=== PATIENT | male | born 1940 | race Caucasian/White ===

== ENCOUNTER → 2016-08-02 | Outpatient (CLI) | payer OTHER, BC ==
[~2016-08-02] MED LIST: ALPR-411 PO; AMLO10TA4 PO; ASPI81TA21 PO; GLIM4TAB2 PO; LINA1TAB PO; LISI40TA PO; METO25TA3 PO; NITR0.4S UT
[2016-08-02 09:36] LABS: ESTIMATED AVERAGE GLUCOSE 180 mg/dl; HA1C FLAG Normal (Normal)
[2016-08-02 09:52] LABS: BLOOD UREA NITROGEN 22 mg/dl (7-18); CALCIUM 8.9 mg/dl (8.5-10.1); CARBON DIOXIDE 27 mmol/L (21-32); CHLORIDE 109 mmol/L (98-107); GLUCOSE 155 mg/dl (70-99); GLUCOSE,FASTING 155 mg/dl (70-99); PHOSPHORUS 2.8 mg/dl (2.5-4.9); POTASSIUM 4.5 mmol/L (3.5-5.1); SODIUM 142 mmol/L (136-145)
== END | disposition home or self-care (01) ==
LOC: C.LAB 08:35
PROVIDERS: ATTEND Internal Medicine
DX: E11.9 Type 2 diabetes mellitus without complications (principal)

== ENCOUNTER → 2016-12-02 | Outpatient (CLI) | payer OTHER, BC ==
[2016-12-02 12:15] LABS: BASO % 1.1 %; BASO ABS # 0.08 K/uL (0-0.2); COMPLETE YES; EOS % 3.3 %; IG% 0.6 %; LYMPH % 25.3 %; LYMPH ABS # 1.76 K/uL (1.2-3.4); MEAN CELL VOLUME 90.2 fL (80-100); MEAN CORPUSCULAR HEMOGLOBIN 31.4 pg (25-34); MEAN CORPUSCULAR HGB CONC 34.8 g/dl (32-36); MEAN PLATELET VOLUME 10.2 fL (7.4-10.4); MONO % 7.2 %; NEUT % 62.5 %; PLATELET COUNT 274 K/uL (130-400); RED BLOOD COUNT 4.88 M/uL (4.7-6.1); WHITE BLOOD COUNT 6.96 K/uL (4.8-10.8)
[2016-12-02 12:59] LABS: ALT/SGPT 22 U/L (12-78); AST/SGOT 18 U/L (15-37); BLOOD UREA NITROGEN 36 mg/dl (7-18); BUN/CREATININE RATIO 18.2 (10-20); CALCIUM 9.4 mg/dl (8.5-10.1); CARBON DIOXIDE 25 mmol/L (21-32); CHLORIDE 107 mmol/L (98-107); CHOLESTEROL 169 mg/dl (0-200); GLUCOSE 164 mg/dl (70-99); POTASSIUM 4.6 mmol/L (3.5-5.1); SODIUM 139 mmol/L (136-145)
[2016-12-02 13:11] LABS: ALB/GLOB RATIO 0.9 (0.9-2); ALKALINE PHOSPHATASE 107 U/L (45-117); CHOLESTEROL/HDL RATIO 5.3; HDL CHOLESTEROL 32 mg/dl; LDL CHOLESTEROL CALCULATED 105 mg/dl; TRIGLYCERIDES 158 mg/dl (0-150); VERY LOW DENSITY LIPOPROT CALC 32 mg/dl
[2016-12-02 13:17] LABS: ESTIMATED AVERAGE GLUCOSE 180 mg/dl; HA1C FLAG Normal (Normal)
== END | disposition home or self-care (01) ==
LOC: C.LABBFT 08:12
PROVIDERS: ATTEND Internal Medicine
DX: N18.3 Chronic kidney disease, stage 3 (moderate) (principal); E78.00 Pure hypercholesterolemia, unspecified; E11.9 Type 2 diabetes mellitus without complications

== ENCOUNTER → 2016-12-09 | Outpatient (CLI) | payer OTHER, BC ==
[2016-12-09 13:07] LABS: BLOOD UREA NITROGEN 30 mg/dl (7-18); CALCIUM 8.9 mg/dl (8.5-10.1); CARBON DIOXIDE 30 mmol/L (21-32); CHLORIDE 104 mmol/L (98-107); GLUCOSE 208 mg/dl (70-99); POTASSIUM 4.5 mmol/L (3.5-5.1); SODIUM 137 mmol/L (136-145)
[2016-12-09 13:20] LABS: BUN/CREATININE RATIO 15.9 (10-20)
== END | disposition home or self-care (01) ==
LOC: C.LABBFT 08:17
PROVIDERS: ATTEND Internal Medicine
DX: R94.6 Abnormal results of thyroid function studies (principal)

== ENCOUNTER → 2017-01-26 | Outpatient (CLI) | payer OTHER, BC ==
[2017-01-26 12:49] LABS: THYROID STIMULATING HORMONE 2.57 uIu/ml (0.300-4.500)
== END | disposition home or self-care (01) ==
LOC: C.LABBFT 07:52
PROVIDERS: ATTEND Internal Medicine
DX: E03.9 Hypothyroidism, unspecified (principal)

== ENCOUNTER → 2017-04-13 | Outpatient (CLI) | payer OTHER, BC ==
[2017-04-13 12:42] LABS: ALBUMIN 3.7 gm/dl (3.4-5.0); BLOOD UREA NITROGEN 31 mg/dl (7-18); CALCIUM 9.1 mg/dl (8.5-10.1); CARBON DIOXIDE 26 mmol/L (21-32); CREATININE 1.65 mg/dl (0.60-1.40); GLUCOSE 135 mg/dl (70-99); POTASSIUM 4.6 mmol/L (3.5-5.1); SODIUM 138 mmol/L (136-145)
[2017-04-13 12:53] LABS: PHOSPHORUS 3.4 mg/dl (2.5-4.9)
[2017-04-13 12:53] LABS: CREATININE RANDOM URINE 68.8 mg/dl
== END | disposition home or self-care (01) ==
LOC: C.LABBFT 07:53
PROVIDERS: ATTEND Internal Medicine
DX: E11.9 Type 2 diabetes mellitus without complications (principal); E03.9 Hypothyroidism, unspecified; N18.3 Chronic kidney disease, stage 3 (moderate)

== ENCOUNTER 2018-05-23 08:21 | Observation (INO) ==
[2018-05-23] MEDS ORDERED: ASPIRIN CHEW 324 MG PO STA (09:05)
[2018-05-23] MEDS ORDERED: fentaNYL citrate 100 MCG/2 ML VIAL IV STA ×2 (09:05→10:33)
[2018-05-23] MEDS: NITROGLYCERIN SL 0.4 MG/TAB TAB SL PRN ×3 (09:12→09:24)
[2018-05-23 09:19] LABS: Basophils # (auto) 0.09 K/uL (0-0.2); Basophils % (auto) 0.7 %; Eosinophils # (auto) 0.18 K/uL (0-0.5); Eosinophils % (auto) 1.4 %; Hematocrit (blood only) 42.7 % (42-52); Hemoglobin 14.6 g/dL (14.0-18.0); Immature Granulocytes # (auto) 0.06 K/uL (0.00-0.02); Immature Granulocytes % (auto) 0.5 %; Lymphocytes # (auto) 2.37 K/uL (1.2-3.4); Lymphocytes % (auto) 18.6 %; Mean Corpuscular Hgb Conc 34.2 g/dL (32-36); Mean Corpuscular Volume 92.8 fL (80-100); Mean Platelet Volume 9.6 fL (7.4-10.4); Monocytes # (auto) 1.26 K/uL (0.11-0.59); Monocytes % (auto) 9.9 %; Neutrophils # (auto) 8.81 K/uL (1.4-6.5); Neutrophils % (auto) 68.9 %; Platelet Count 308 K/uL (130-400); RDW Coefficient of Variation 14.1 % (11.5-14.5); RDW Standard Deviation 47.9 fL (36.4-46.3); White Blood Count 12.77 K/uL (4.8-10.8)
--- NOTE | 2018-05-23 09:25 | XRay Report ---
XR chest 1V portable CLINICAL HISTORY: Atypical chest pain COMPARISON STUDY: 06/20/2011 FINDINGS: The heart is enlarged. There is elevation of the interstitium consistent with mild congesti ve failure. There is no lobar consolidation. There are no large pleural effusions.[ IMPRESSION: Cardiomegaly and radiographic evidence of mild congestive failure/fluid overload. No evid ence of lobar consolidation Electronically signed by: Xavier Carroll M.D. 05/23/2018 9:23 AM
[2018-05-23 09:27] LABS: Albumin Level 3.6 gm/dl (3.4-5.0); BUN Creatinine Ratio 12.5 (10-20); Calcium 9.1 mg/dl (8.5-10.1); Est GFR (African American) 39.8; Est GFR (Non-African American) 34.3; Potassium 4.7 mmol/L (3.5-5.1)
[2018-05-23 09:32] LABS: Prothrombin Time 10.3 Seconds (9.0-12.0)
[2018-05-23 09:49] LABS: Albumin Globulin Ratio 0.9 (0.9-2); Bilirubin,Total 0.8 mg/dl (0.2-1); Globulin 4.2 gm/dl (2.5-4.0); Total Protein 7.8 gm/dl (6.4-8.2); Troponin I 0.319 ng/ml (0-0.045)
[2018-05-23] MEDS ORDERED: HEPARIN SOD 5,000 UNIT/0.5 ML VIAL ONE (10:07)
[2018-05-23] MEDS ORDERED: HEPARIN 25000 UNIT/500 ML D5W IV ONE (10:07)
--- NOTE | 2018-05-23 10:09 | Emergency Department Note ---
Entered by Antonia Kilpatrick acting as a scribe for History of Present Illness General Chief complaint: Chest Pain Stated complaint: CHEST PAIN,BACK PAIN Time Seen by Provider: 05/23/18 08:58 Source: patient History of Present Illness Onset (ago): hour(s) (this morning) Location: chest (left-sided) Radiation: back Severity: similar to prior episodes Pain Consistency: + other (persistent ) Maximum Pain Intensity: 6 Associated symptoms: + other (negative abdominal pain; negative arm pain) The patient is a 78 year old male who presents to the Emergency Room with complaints of persistent left-sided chest pain that began this morning. The patient states that this pain began in the left side of his back and moved to the front of his chest. The patient states that he has had intermittent episodes of similar pain over the past several weeks. The patient denies abdominal pain and arm pain. He states that he has some right shoulder pain, but states that this is not new. The patient states that he has 2 or 3 cardiac stents. He states that he takes baby Aspirin regularly. The patient states that he took all of his medications this morning. Home Medications Home Medications Medication Instructions Recorded Confirmed Type alprazolam 0.5 mg PO DAILY 05/23/18 05/23/18 History amlodipine 10 mg PO HS 05/23/18 05/23/18 History aspirin 81 mg PO DAILY 05/23/18 05/23/18 History ezetimibe 10 mg PO DAILY 05/23/18 05/23/18 History glimepiride 4 mg PO BID 05/23/18 05/23/18 History hydralazine 10 mg PO BID 05/23/18 05/23/18 History insulin glargine [Lantus Solostar 26 unit SUBCUT HS 05/23/18 05/23/18 History U-100 Insulin] levothyroxine [Synthroid] 50 mcg PO DAILY 05/23/18 05/23/18 History linagliptin [Tradjenta] 5 mg PO DAILY 05/23/18 05/23/18 History lisinopril 40 mg PO DAILY 05/23/18 05/23/18 History nitroglycerin [Nitrostat] 0.4 mg SUBLINGUAL UD PRN 05/23/18 05/23/18 History omega-3 fatty acids-fish oil [Fish 1,200 mg PO DAILY 05/23/18 05/23/18 History Oil] Allergies Allergy/AdvReac Type Severity Reaction Status Date / Time No Known Allergies Allergy Mild Unverified 07/17/15 08:40 Past Med/Surg History Medical History Hypertension (Chronic) Social History Current Living Situation: Spouse Other Information That Helps Us Care for You: No Feels Safe at Home: Yes Safety Concerns: Feels Safe At This Time Smoking Status: Former smoker Do You Dip or Chew Tobacco: No Second Hand Exposure: No Tobacco Cessation Education Requested by Patient: No Hx Alcohol Use: No Hx Substance Use: No Beliefs That Will Affect Care: None Preferred Language: Colombian Communication Ability: Effective Golf Cart Maker Required: No Review of Systems See HPI for pertinent positives & negatives. and A total of 10 systems reviewed and were otherwise negative Physical Exam Vital Signs Vital Signs - 24 hr 05/23/18 08:33 05/23/18 08:37 05/23/18 09:12 Temperature Temperature Source Oral Sepsis Recent Fever Within 48 Hours No Sepsis Action Taken by Nursing No Action Required Pulse Rate 110 H Pulse Rate [Apical] 97 H Pulse Rhythm [Apical] Pulse Strength [Apical] Respiratory Rate 24 28 H Respiratory Effort / Characteristics SOB on Exertion Respiratory Depth Respiratory Pattern Blood Pressure 186/101 H Blood Pressure [Left Arm] 131/84 Blood Pressure [Right Arm] Blood Pressure Mean 129 Blood Pressure Mean [Left Arm] 99 Blood Pressure Mean [Right Arm] Blood Pressure Position [Right Arm] Pulse Oximetry 85 L 100 96 Oxygen Delivery Method Room Air Room Air Room Air 05/23/18 09:15 05/23/18 09:18 05/23/18 09:25 Temperature Temperature Source Sepsis Recent Fever Within 48 Hours Sepsis Action Taken by Nursing Pulse Rate Pulse Rate [Apical] 81 82 Pulse Rhythm [Apical] Pulse Strength [Apical] Respiratory Rate 26 H 28 H Respiratory Effort / Characteristics Respiratory Depth Respiratory Pattern Blood Pressure Blood Pressure [Left Arm] 133/78 Blood Pressure [Right Arm] 133/78 124/79 Blood Pressure Mean Blood Pressure Mean [Left Arm] 96 Blood Pressure Mean [Right Arm] 96 94 Blood Pressure Position [Right Arm] Pulse Oximetry 96 96 96 Oxygen Delivery Method Room Air Room Air Room Air 05/23/18 09:32 05/23/18 09:43 05/23/18 10:01 Temperature Temperature Source Sepsis Recent Fever Within 48 Hours Sepsis Action Taken by Nursing Pulse Rate 66 74 Pulse Rate [Apical] 86 Pulse Rhythm [Apical] Pulse Strength [Apical] Respiratory Rate 30 H 19 26 H Respiratory Effort / Characteristics Respiratory Depth Respiratory Pattern Blood Pressure 104/68 142/88 H Blood Pressure [Left Arm] Blood Pressure [Right Arm] 114/65 Blood Pressure Mean 80 106 Blood Pressure Mean [Left Arm] Blood Pressure Mean [Right Arm] 81 Blood Pressure Position [Right Arm] Pulse Oximetry 96 97 96 Oxygen Delivery Method Room Air 05/23/18 10:31 05/23/18 10:39 05/23/18 10:48 Temperature Temperature Source Sepsis Recent Fever Within 48 Hours Sepsis Action Taken by Nursing Pulse Rate 99 H 85 Pulse Rate [Apical] Pulse Rhythm [Apical] Pulse Strength [Apical] Respiratory Rate 28 H 11 L Respiratory Effort / Characteristics Respiratory Depth Respiratory Pattern Blood Pressure 151/90 H 175/123 H 133/88 Blood Pressure [Left Arm] Blood Pressure [Right Arm] Blood Pressure Mean 110 140 103 Blood Pressure Mean [Left Arm] Blood Pressure Mean [Right Arm] Blood Pressure Position [Right Arm] Pulse Oximetry 99 100 Oxygen Delivery Method 05/23/18 11:04 05/23/18 11:05 05/23/18 11:25 Temperature Temperature Source Sepsis Recent Fever Within 48 Hours Sepsis Action Taken by Nursing Pulse Rate 91 H 86 79 Pulse Rate [Apical] Pulse Rhythm [Apical] Pulse Strength [Apical] Respiratory Rate 20 28 H 24 Respiratory Effort / Characteristics Respiratory Depth Respiratory Pattern Blood Pressure 138/99 138/88 Blood Pressure [Left Arm] Blood Pressure [Right Arm] Blood Pressure Mean 112 104 Blood Pressure Mean [Left Arm] Blood Pressure Mean [Right Arm] Blood Pressure Position [Right Arm] Pulse Oximetry 95 96 97 Oxygen Delivery Method 05/23/18 11:30 05/23/18 11:31 05/23/18 12:25 Temperature 36.1 C L Temperature Source Oral Sepsis Recent Fever Within 48 Hours Sepsis Action Taken by Nursing Pulse Rate 76 55 L Pulse Rate [Apical] 100 H Pulse Rhythm [Apical] Regular Pulse Strength [Apical] Normal Respiratory Rate 29 H 21 20 Respiratory Effort / Characteristics Non-Labored Spontaneous Respiratory Depth Normal Respiratory Pattern Regular Blood Pressure 127/78 Blood Pressure [Left Arm] Blood Pressure [Right Arm] 144/92 H Blood Pressure Mean 94 Blood Pressure Mean [Left Arm] Blood Pressure Mean [Right Arm] 109 Blood Pressure Position [Right Arm] Lying Pulse Oximetry 95 92 Oxygen Delivery Method Room Air GENERAL: Awake, alert, well-appearing, uncomfortable. HENT: Normocephalic, atraumatic. EYES: Normal conjunctiva. Sclera non-icteric. NECK: Supple. No nuchal rigidity. RESPIRATORY: Clear to auscultation. No wheezes. Tachypneic. CARDIAC: Tachycardic rate. Normal rhythm. Extremities warm and well perfused. GI: Soft, non-distended. No tenderness to palpation. No rebound or guarding. RECTAL: Deferred. MUSCULOSKELETAL: Atraumatic. Chest examination reveals no tenderness. There is no CVA tenderness to palpation. LOWER EXTREMITIES: Calves are equal size bilaterally and non-tender. No edema NEURO: Normal sensorium. No sensory or motor deficits noted. No facial droop. SKIN: Warm and dry. No rash or jaundice noted. Course 0900: Past medical records reviewed. The patient was evaluated in room B12B, and a complete history and physical examination were performed. 1014: [facility]. 1117: [facility] who [facility] the patient and suggested that Dr. Pugh be consulted. 1121: I discussed the case with Dr. Pugh-V[facility] Surgery who states that there is nothing to do about the patient's CT findings. Consultations Consultation #1: [facility] who will [facility] the [facility]. Time: 10:14 Consultation #2: [facility] who evaluated the patient and suggested that Dr. Pugh be consulted. Time: 11:17 Consultation #3: I discussed the case with Dr. Pugh-V[facility] Surgery who states that there is nothing to do about the patient's CT findings. Time: 11:21 Administered Medications Ezetimibe (Zetia) 10 mg PO QAM [facility] Stop: 06/22/18 12:14 Last Admin: 05/23/18 14:15 Dose: 10 mg Heparin Sodium/Dextrose (Heparin Sodium/Dextrose) 25,000 units in 500 mls @ 30 mls/hr IV .[id number] [facility]; Protocol Stop: 06/22/18 12:40 Last Admin: 05/23/18 13:02 Dose: 1,500 units/hr, 30 mls/hr Insulin Aspart (Novolog Flexpen) 0 units SC ACHS [facility] Stop: 05/23/18 23:59 Last Admin: 05/23/18 14:17 Dose: 2 units Ioversol (Optiray 320 125ml) 119 ml IV ONCE PRN PRN Reason: Interaction Checking Stop: 05/27/18 11:00 Last Admin: 05/23/18 11:02 Dose: 119 ml Metoprolol Succinate (Toprol Xl) 25 mg PO QAM [facility] Stop: 06/22/18 12:14 Last Admin: 05/23/18 14:15 Dose: 25 mg Discontinued Medications Aspirin (Aspirin) 324 mg PO NOW STA Stop: 05/23/18 09:06 Last Admin: 05/23/18 09:13 Dose: 324 mg Fentanyl Citrate (Fentanyl Citrate) 25 mcg IV NOW STA Stop: 05/23/18 09:06 Last Admin: 05/23/18 09:31 Dose: 25 mcg Fentanyl Citrate (Fentanyl Citrate) 25 mcg IV NOW STA Stop: 05/23/18 10:34 Last Admin: 05/23/18 10:39 Dose: 25 mcg Heparin Sodium (Porcine) (Heparin Sodium (Porcine)) Confirm Administered Dose 10 ,000 units .ROUTE .STK-MED ONE Stop: 05/23/18 10:08 Last Admin: 05/23/18 10:19 Dose: 5,000 units Heparin Sodium/Dextrose () 1 ea IV NOW STA; Protocol Stop: 05/23/18 09:57 Last Admin: 05/23/18 10:22 Dose: Not Given Heparin Sodium/Dextrose (Heparin Sodium/Dextrose) Confirm Administered Dose 25, 000 units IV .STK-MED ONE Stop: 05/23/18 10:08 Last Admin: 05/23/18 10:18 Dose: 30 ml Sodium Chloride (Nss 1000ml) 1,000 mls @ 80 mls/hr IV .[id number] [facility] Stop: 06/22/18 12:23 Last Admin: 05/23/18 14:25 Dose: Not Given Metoprolol Tartrate (Lopressor) 2.5 mg IV NOW STA Stop: 05/23/18 10:42 Last Admin: 05/23/18 14:24 Dose: Not Given Nitroglycerin (Nitrostat) 0.4 mg SL UD PRN PRN Reason: Chest Pain Stop: 06/22/18 09:04 Last Admin: 05/23/18 09:24 Dose: 0.4 mg Admin: 05/23/18 09:18 Dose: 0.4 mg Admin: 05/23/18 09:12 Dose: 0.4 mg Nitroglycerin (Nitrostat) 0.4 mg SL NOW STA Stop: 05/23/18 10:34 Last Admin: 05/23/18 10:38 Dose: 0.4 mg Nitroglycerin (Nitro-Bid 2%) 1 inch EXT NOW ONE Stop: 05/23/18 10:48 Last Admin: 05/23/18 11:12 Dose: 1 inch Medical Decision Making Differential Diagnosis Differential diagnosis: Etiologies such as shingles, musculoskeletal pain, pericarditis, myocarditis, cardiac ischemia, pericardial tamponade, pneumonia, pneumothorax, pleural effusion, hemothorax, pleurisy, aortic pathology, pulmonary embolism, intra- abdominal process, as well as others were considered. Medical Records Attestation: I reviewed the patient's medical records. Home Medications Current Medication List: was personally reviewed by me Laboratory Data Attestation: I reviewed the patient's lab results. Result diagrams: 05/23/18 09:00 05/23/18 09:00 Lab Results 05/23/18 05/23/18 05/23/18 Range/Units 09:00 09:00 09:00 WBC 12.77 H (4.8-10.8) K/uL RBC 4.60 L (4.7-6.1) M/uL Hgb 14.6 (14.0-18.0) g/dL Hct 42.7 (42-52) % MCV 92.8 (80-100) fL MCH 31.7 (25-34) pg MCHC 34.2 (32-36) g/dL RDW Std Deviation 47.9 H (36.4-46.3) fL RDW Coeff of Pj 14.1 (11.5-14.5) % Plt Count 308 (130-400) K/uL MPV 9.6 (7.4-10.4) fL Immature Gran % (Auto) 0.5 % Neut % (Auto) 68.9 % Lymph % (Auto) 18.6 % Dillon % (Auto) 9.9 % Eos % (Auto) 1.4 % Baso % (Auto) 0.7 % Immature Gran # (Auto) 0.06 H (0.00-0.02) K/uL Neut # (Auto) 8.81 H (1.4-6.5) K/uL Lymph # (Auto) 2.37 (1.2-3.4) K/uL Dillon # (Auto) 1.26 H (0.11-0.59) K/uL Eos # (Auto) 0.18 (0-0.5) K/uL Baso # (Auto) 0.09 (0-0.2) K/uL PT 10.3 (9.0-12.0) Seconds INR 1.0 (0.9-1.1) Sodium 137 (136-145) mmol/L Potassium 4.7 (3.5-5.1) mmol/L Chloride 104 (98-107) mmol/L Carbon Dioxide 24 (21-32) mmol/L Anion Gap 9.0 (3-11) BUN 23 H (7-18) mg/dl Creatinine 1.83 H (0.6-1.4) mg/dl Est Cr Clr Drug Dosing 39.0 ml/min Est GFR ( Amer) 39.8 Est GFR (Non-Af Amer) 34.3 BUN/Creatinine Ratio 12.5 (10-20) Glucose 218 H (70-99) mg/dl POC Glucose (70-99) Calcium 9.1 (8.5-10.1) mg/dl Total Bilirubin 0.8 (0.2-1) mg/dl AST 21 (15-37) U/L ALT 22 (12-78) U/L Alkaline Phosphatase 119 H (45-117) U/L POC Troponin I (0-0.045) ng/ml Troponin I 0.319 H* (0-0.045) ng/ml Total Protein 7.8 (6.4-8.2) gm/dl Albumin 3.6 (3.4-5.0) gm/dl Globulin 4.2 H (2.5-4.0) gm/dl Albumin/Globulin Ratio 0.9 (0.9-2) Lipase 416 H (73-393) U/L 05/23/18 05/23/18 05/23/18 Range/Units 09:12 12:49 14:03 WBC (4.8-10.8) K/uL RBC (4.7-6.1) M/uL Hgb (14.0-18.0) g/dL Hct (42-52) % MCV (80-100) fL MCH (25-34) pg MCHC (32-36) g/dL RDW Std Deviation (36.4-46.3) fL RDW Coeff of Pj (11.5-14.5) % Plt Count (130-400) K/uL MPV (7.4-10.4) fL Immature Gran % (Auto) % Neut % (Auto) % Lymph % (Auto) % Dillon % (Auto) % Eos % (Auto) % Baso % (Auto) % Immature Gran # (Auto) (0.00-0.02) K/uL Neut # (Auto) (1.4-6.5) K/uL Lymph # (Auto) (1.2-3.4) K/uL Dillon # (Auto) (0.11-0.59) K/uL Eos # (Auto) (0-0.5) K/uL Baso # (Auto) (0-0.2) K/uL PT (9.0-12.0) Seconds INR (0.9-1.1) Sodium (136-145) mmol/L Potassium (3.5-5.1) mmol/L Chloride (98-107) mmol/L Carbon Dioxide (21-32) mmol/L Anion Gap (3-11) BUN (7-18) mg/dl Creatinine (0.6-1.4) mg/dl Est Cr Clr Drug Dosing ml/min Est GFR ( Amer) Est GFR (Non-Af Amer) BUN/Creatinine Ratio (10-20) Glucose (70-99) mg/dl POC Glucose 213 H (70-99) Calcium (8.5-10.1) mg/dl Total Bilirubin (0.2-1) mg/dl AST (15-37) U/L ALT (12-78) U/L Alkaline Phosphatase (45-117) U/L POC Troponin I 0.29 H (0-0.045) ng/ml Troponin I 1.700 H* (0-0.045) ng/ml Total Protein (6.4-8.2) gm/dl Albumin (3.4-5.0) gm/dl Globulin (2.5-4.0) gm/dl Albumin/Globulin Ratio (0.9-2) Lipase (73-393) U/L Imaging Data Radiologist's Impression: Radiology results as stated below per my review and the radiologist's interpretation: XR chest 1V portable CLINICAL HISTORY: Atypical chest pain COMPARISON STUDY: 06/20/2011 FINDINGS: The heart is enlarged. There is elevation of the interstitium consistent with mild congestive failure. There is no lobar consolidation. There are no large pleural effusions.[ IMPRESSION: Cardiomegaly and radiographic evidence of mild congestive failure/ fluid overload. No evidence of lobar consolidation Electronically signed by: Xavier Carroll M.D. 05/23/2018 9:[address] angio chest wo/w con CT DOSE: 1033.14 mGy.cm CLINICAL HISTORY: Atypical chest pain. Possible aortic dissection. History of aortic repair the abdomen. TECHNIQUE: Unenhanced images were obtained through the thorax. CT angiography was then performed in a dynamic helical fashion during intravenous administration 119 cc of Optiray 320. MIP imaging was acquired. A dose lowering technique was utilized adhering to the principles of ALARA. COMPARISON STUDY: Chest x-ray dated 05/23/2018 FINDINGS: Unenhanced images reveal no evidence of acute aortic hematoma. Postcontrast images reveal no thyroid masses. There is no evidence of thoracic aortic dilatation. There are mild atheromatous changes present within the descending thoracic aorta. There are no pulmonary artery filling defects to indicate acute pulmonary embolism. Mediastinal lymph nodes are the upper limits of normal in size. Hilar lymph nodes are the upper limits of normal in size. There is no pathologic axillary lymphadenopathy. There is pulmonary emphysema. Mild interstitial pulmonary edema is suspected. There are no pleural effusions. There is no focal pulmonary consolidation. There are 2 solid left lower lobe pulmonary nodules, each of which measures approximately 8 mm. 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 No evidence of thoracic aortic aneurysm or dissection 2. 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 No evidence of pulmonary embolism 6. Emphysema with mild interstitial edema 7. No evidence of focal pulmonary consolidation 8. There are 2 left lower lobe pulmonary nodules each of which measures approximately 8 mm. 3-6 month follow-up CT scan is recommended. Please refer to below summary of Fleischner criteria recommendations for follow- up of incidental CT nodules (Helena Wilson, Guidelines for management of small pulmonary nodules detected on CT scans: A statement from the Fleischner Society , Radiology 237: [id number].) SOLID NODULES Solitary nodule size: <6 mm * low risk patients: no follow-up needed * high risk patients: optional CT at 12 months Solitary nodule size: 6-8 mm * low risk patients: follow-up at 6-12 months, then consider further follow- up at 18-24 months * high risk patients: initial follow-up CT at 6-12 months and then at 18-24 months if no change Solitary nodule size: >8 mm * either low or high risk patients - consider follow-up CT at 3 months, and/or CT-PET, and/or biopsy Multiple nodules size: <6 mm * low risk patients: no routine follow-up * high risk patients: optional CT at 12 months Multiple nodules size: 6-8 mm * low risk patients: follow-up at 3-6 months, then consider further follow-up at 18-24 months * high risk patients: follow-up at 3-6 months, then at 18-24 months if no change Multiple nodules size: >8 mm * low risk patients: follow-up at 3-6 months, then consider further follow-up at 18-24 months * high risk patients: follow-up at 3-6 months, then at 18-24 months if no change Note: newly detected indeterminate nodule in persons 35 years of age or older. * low risk patients: minimal or absent history of smoking and/or other known risk factors * high risk patients: history of smoking or of other known risk factors (e.g. first degree relative with lung cancer, or exposure to asbestos, radon, uranium) * if a nodule up to 8 mm is partly solid or is ground glass further follow-up is required after 24 months to exclude possible slow growing adenocarcinoma (MALENA ) SUBSOLID NODULES Solitary pure ground-glass nodule * nodule size <6 mm - no CT follow-up required * nodule size >=6 mm - follow-up CT at 6-12 months, then every 2 years until 5 years Solitary part-solid nodule * nodule size <6 mm - no CT follow-up required * nodule size >=6 mm - follow-up CT at 3-6 months. If unchanged, and solid component remains <6 mm, then annual follow-up for 5 years Multiple subsolid nodules * nodule size <6 mm - follow-up CT at 3-6 months, consider further follow-up at 2 and 4 years if stable * nodule size >=6 mm - follow-up CT at 3-6 months, subsequent management based on the most suspicious nodule(s) Electronically signed by: Xavier Carroll M.D. 05/23/2018 11:13 AM ECG Data Attestation: I personally reviewed and interpreted this ECG as follows: Indication: chest pain Rate (beats per minute): 107 Rhythm: sinus tachycardia Findings: + T-wave inversion (aVL) and + left axis deviation; no PVC and no ST elevation Additional Comments: Repeat ECG: Normal sinus rhythm with a rate of 87. Repeat is unchanged from previous. Blood Pressure Blood Pressure Findings: Elevated blood pressure Blood Pressure Disposition: further management by hospitalist DOROTA Khan Patient is a 78-year-old gentleman with a history of diabetes and cardiac disease with 3 stents in 2011 presenting today complaining of over the past 2 weeks some chest pain with onset this morning of chest pain around 630a. Pain wraps around his upper body. Did not take anything other than normal medications prior to arrival. Given full dose aspirin here some nitroglycerin and fentanyl. Chest x-ray completed to evaluate for pneumonia or pneumothorax have low suspicion for this. EKG complete along with troponin to help evaluate for cardiac etiology. Patient somewhat tachypneic believe this is more related to pain. Nitroglycerin relieves the patient's anterior chest pain although still has some mild back discomfort. Still has about 4 out of 10 back pain he states. Blood pressure is improved. Repeat EKG is unchanged again with aVL T wave inversion. No recent comparison available. Troponin is elevated at 0.3. Started on a heparin drip. Do not see ST segment elevations but the patient has a significant history with the troponin concerning for NSTEMI. Discussed with hospitalist for admission for further cardiac evaluation. Patient's pain returned and given additional fentanyl and nitroglycerin. Nitropaste ordered. CT of the chest was completed to exclude aortic thoracic dissection negative. Did discuss with our vascular surgeon the questionable dissection flap in the superior mesenteric artery. Stated no acute intervention and okay for heparinization. Discussed with hospitalist who is contacted the assistant professor of biology for evaluation. As his pain is worsening may need acute cath. Patient update along the way and pain gone with nitropaste. Impression & Plan Non-ST elevation MS (NSTEMI) Critical Care Time I have personally spent greater than 32 minutes of critical care time in the direct management of this patient. This includes bedside care, interpretation of diagnostic studies, and testing, discussion with consultants, patient, and family members, and other required patient management activities. This 32 minutes is in excess of all separately billable procedures. Critical Care Time: Yes Total Critical Care Time: 32 Discharge Plan Visit Data *Final* Discharge Date/Time: 05/23/18 12:04 Chief Complaint: Chest Pain Stated Complaint: CHEST PAIN,BACK PAIN ED Provider: Khanh Washington Discharge Problem: Non-ST elevation MS (NSTEMI) Patient Disposition: Admitted As Inpatient Discharge Instructions Interventions: ED Discharge Assessment Last Done: 05/23/18 12:04 The juddibe's documentation has been prepared under my direction and personally reviewed by me in its entirety. I confirm that the note above accurately reflects all work, treatment, procedures, and medical decision making performed by me.
--- NOTE | 2018-05-23 10:31 | History & Physical Report ---
Date of Service May 23, 2018 Assessment & Plan (1) Non-ST elevation [place] (NSTEMI): 78 y/o M Hx CAD, DM II, HTN, HLD, hypothyroidism, CKD III, renal artery stenosis, AAA - EVAR 2011. Pt presents with central chest and back pain. Admits to SOB, denies N/V, diaphoresis. Initial labs are notable for an elevated troponin. An EKG does not comport with acute ischemia. A CTA was obtained considering his dissection history and back pain. No new dissection is present. 1) NSTEMI - placed on heparin, NTG/morphine as needed, ASA - presumably he is statin intolerant. He may need to proceed to the labor trainer eventually. We have consulted his store associate and would consider addition of Plavix or Brilinta. 2) DM II - placed on a SS and Lantus 3) HTN/HLD - provided with a dose of IV Metoprolol, cont Norvasc, Hydralazine. Does not tolerate statins. 4) Hypothyroidism - cont Synthroid Full code - full dose Heparin Total time for this admit including review of labs, meds, records, imaging, EKG - discussion with pt, ER attending, cardiology - 41 min Present on Admission?: Yes History of Present Illness Chief Complaint: Chest and back pain Primary Care Provider: Gene Calvo MD 78 y/o M Hx CAD, DM II, HTN, HLD, hypothyroidism, CKD III, renal artery stenosis , AAA - EVAR 2011. Pt presents with central chest and back pain. Admits to SOB , denies N/V, diaphoresis. Initial labs are notable for an elevated troponin. An EKG does not comport with acute ischemia. A CTA was obtained considering his dissection histroy and back pain. No new dissection is present. PMH: 1) AAA - EVAR 2011 2) DM II 3) HTN 4) HLD 5) CAD - history of stents 6) L subclavian A occlusion 7) BL renal A stenosis 8) Diverticulitis 9) Hypothryoidism 10) CKD III Surgical: 1) EVAR 2011 2) Cataract Social: Quit smoking 7 years ago, does not drink Family: Father owing to complications of DM Allergies Allergy/AdvReac Type Severity Reaction Status Date / Time No Known Allergies Allergy Mild Unverified 07/17/15 08:40 Home Medications Home Medications Medication Instructions Recorded Confirmed Type alprazolam 0.5 mg PO DAILY 05/23/18 05/23/18 History amlodipine 10 mg PO HS 05/23/18 05/23/18 History aspirin 81 mg PO DAILY 05/23/18 05/23/18 History ezetimibe 10 mg PO DAILY 05/23/18 05/23/18 History glimepiride 4 mg PO BID 05/23/18 05/23/18 History hydralazine 10 mg PO BID 05/23/18 05/23/18 History insulin glargine [Lantus Solostar 26 unit SUBCUT HS 05/23/18 05/23/18 History U-100 Insulin] levothyroxine [Synthroid] 50 mcg PO DAILY 05/23/18 05/23/18 History linagliptin [Tradjenta] 5 mg PO DAILY 05/23/18 05/23/18 History lisinopril 40 mg PO DAILY 05/23/18 05/23/18 History nitroglycerin [Nitrostat] 0.4 mg SUBLINGUAL UD PRN 05/23/18 05/23/18 History omega-3 fatty acids-fish oil [Fish 1,200 mg PO DAILY 05/23/18 05/23/18 History Oil] Past Med/Surg History Medical History Hypertension (Chronic) Social History Current Living Situation: Spouse Other Information That Helps Us Care for You: No Feels Safe at Home: Yes Safety Concerns: Feels Safe At This Time Smoking Status: Former smoker Do You Dip or Chew Tobacco: No Second Hand Exposure: No Tobacco Cessation Education Requested by Patient: No Hx Alcohol Use: No Hx Substance Use: No Beliefs That Will Affect Care: None Preferred Language: Bulgarian Communication Ability: Effective Immigration Coordinator Required: No Review of Systems Gen: Denies fevers, night sweats, rigors, fatigue, malaise, weight loss/gain ENT: Denies congestion, throat pain, hearing loss Eyes: Denies acute visual changes CV: Moderate to severe central CP - originated in mid back Pulmonary: Denies cough, wheezing - reported SOB with CP GI: Denies N/V, diarrhea, constipation Neuro: Denies acute or unilateral weakness, acute gait impairment, headache or acute visual changes Musculoskeletal: Denies joint pain, inflammation - back pain preceeded CP Endocrine: Denies polydipsia, polyuria Skin: Denies acute rashes or ulcers Physical Exam 2 Vital Signs (Past 24 Hours): Last Vital Signs Pulse 74 05/23/18 10:01 Resp 26 H 05/23/18 10:01 BP 142/88 H 05/23/18 10:01 Pulse Ox 96 05/23/18 10:01 Physical Exam: General: AAO x 3, no distress after NTG administration ENT: No erythema or exudates, no thrush Eyes: JEFFERSON, EOMI Head and neck: Normocephalic, atraumatic, No JVD, neck is supple. Chest/heart: Nontender, S1,2, RRR, no murmurs, no gallops Lungs: CTAB, no wheezing or crackles Abdomen: Nontender, nondistended, BS+ Neuro: AAO x 3, speech is clear, no unilateral weakness or loss of sensation, coordination intact Musculoskeletal: No joint inflammation, muscle tenderness, FROM Skin: No acute rashes or ulcers Extremities: No clubbing, cyanosis, edema Results & Data Diagnostic Findings CXR: Cardiomegaly and radiographic evidence of mild congestive failure/fluid overload. No evidence of lobar consolidation.
[2018-05-23] MEDS ORDERED: NITROGLYCERIN SL 0.4 MG/TAB TAB SL STA (10:33)
[2018-05-23] MEDS ORDERED: METOPROLOL TARTRATE 1 MG/ML VIAL IV STA (10:41)
[2018-05-23] MEDS ORDERED: NITROGLYCERIN 2% OINTMENT 30GM TUBE EXT ONE (10:47)
[2018-05-23] MEDS ORDERED: OPTIRAY 320 125ml IV PRN (11:01)
--- NOTE | 2018-05-23 11:15 | CT Scan Report ---
CT angio chest wo/w con CT DOSE: 1033.14 mGy.cm CLINICAL HISTORY: Atypical chest pain. Possible aortic dissection. History of aortic repair the abdom en. TECHNIQUE: Unenhanced images were obtained through the thorax. CT angiography was then performed in a dynamic helical fashion during intravenous administration 119 cc of Optiray 320. MIP imaging was acq uired. A dose lowering technique was utilized adhering to the principles of ALARA. COMPARISON STUDY: Chest x-ray dated 05/23/2018 FINDINGS: Unenhanced images reveal no evidence of acute aortic hematoma. Postcontrast images reveal no thyroid masses. There is no evidence of thoracic aortic dilatation. There are mild atheromatous changes present withi n the descending thoracic aorta. There are no pulmonary artery filling defects to indicate acute pulmonary embolism. Mediastinal lymph nodes are the upper limits of normal in size. Hilar lymph nodes are the upper limit s of normal in size. There is no pathologic axillary lymphadenopathy. There is pulmonary emphysema. Mild interstitial pulmonary edema is suspected. There are no pleural ef fusions. There is no focal pulmonary consolidation. There are 2 solid left lower lobe pulmonary nodul es, each of which measures approximately 8 mm. There is a proximal left subclavian artery occlusion with evidence for a left vertebral steal. There is a proximal celiac artery stenosis. There is a partially visualized superior mesenteric arter y dissection flap IMPRESSION: 1. No evidence of thoracic aortic aneurysm or dissection 2. 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 No evidence of pulmonary embolism 6. Emphysema with mild interstitial edema 7. No evidence of focal pulmonary consolidation 8. There are 2 left lower lobe pulmonary nodules each of which measures approximately 8 mm. 3-6 month follow-up CT scan is recommended. Please refer to below summary of Fleischner criteria recommendations for follow-up of incidental CT n odules (Helena Wilson, Guidelines for management of small pulmonary nodules detected on CT scans: A sta tement from the Fleischner Society, Radiology 237: [id number].) SOLID NODULES Solitary nodule size: <6 mm * low risk patients: no follow-up needed * high risk patients: optional CT at 12 months Solitary nodule size: 6-8 mm * low risk patients: follow-up at 6-12 months, then consider further follow-up at 18-24 months * high risk patients: initial follow-up CT at 6-12 months and then at 18-24 months if no change Solitary nodule size: >8 mm * either low or high risk patients - consider follow-up CT at 3 months, and/or CT-PET, and/or biopsy Multiple nodules size: <6 mm * low risk patients: no routine follow-up * high risk patients: optional CT at 12 months Multiple nodules size: 6-8 mm * low risk patients: follow-up at 3-6 months, then consider further follow-up at 18-24 months * high risk patients: follow-up at 3-6 months, then at 18-24 months if no change Multiple nodules size: >8 mm * low risk patients: follow-up at 3-6 months, then consider further follow-up at 18-24 months * high risk patients: follow-up at 3-6 months, then at 18-24 months if no change Note: newly detected indeterminate nodule in persons 35 years of age or older. * low risk patients: minimal or absent history of smoking and/or other known risk factors * high risk patients: history of smoking or of other known risk factors (e.g. first degree relative with lung cancer, or exposure to asbestos, radon, uranium) * if a nodule up to 8 mm is partly solid or is ground glass further follow-up is required after 24 m onths to exclude possible slow growing adenocarcinoma (MALENA) SUBSOLID NODULES Solitary pure ground-glass nodule * nodule size <6 mm - no CT follow-up required * nodule size >=6 mm - follow-up CT at 6-12 months, then every 2 years until 5 years Solitary part-solid nodule * nodule size <6 mm - no CT follow-up required * nodule size >=6 mm - follow-up CT at 3-6 months. If unchanged, and solid component remains <6 mm, then annual follow-up for 5 years Multiple subsolid nodules * nodule size <6 mm - follow-up CT at 3-6 months, consider further follow-up at 2 and 4 years if sta ble * nodule size >=6 mm - follow-up CT at 3-6 months, subsequent management based on the most suspiciou s nodule(s) Electronically signed by: Xavier Carroll M.D. 05/23/2018 11:13 AM
[2018-05-23] MEDS ORDERED: ASPIRIN 81 MG ECTAB PO STA ×2 (12:08→12:24)
[2018-05-23] MEDS ORDERED: SODIUM CHLORIDE 0.9% 1000ML 1,000 ML IV SCH (12:24)
[2018-05-23] MEDS ORDERED: ACETAMINOPHEN 325 MG TAB PO PRN (12:24)
[2018-05-23] MEDS ORDERED: MoRPHine SULFATE 4 MG/ML 1 ML CARP\\VIAL IV PRN (12:24)
[2018-05-23] MEDS ORDERED: NITROGLYCERIN SL 0.4 MG/TAB TAB SL PRN (12:24)
[2018-05-23] MEDS ORDERED: ALUMINUM/MAGNESIUM SUSP 30 ML UDC PO PRN (12:24)
[2018-05-23] MEDS ORDERED: MAGNESIUM HYDROXIDE SUSP 30 ML UDC PO PRN (12:24)
[2018-05-23] MEDS ORDERED: POLYETHYLENE (MIRALAX) 17 GM PACK PO PRN (12:24)
[2018-05-23] MEDS ORDERED: ONDANSETRON INJ 2 MG/ML 2 ML VIAL IV PRN (12:24)
[2018-05-23] MEDS ORDERED: Nursing to Pharmacy Communication ONE (12:39)
[2018-05-23] MEDS ORDERED: CLOPIDOGREL BISULFATE 300 MG TAB PO ONE (12:45)
[2018-05-23] MEDS ORDERED: DEXTROSE 50% 50 ML SYRINGE IV PRN (12:54)
[2018-05-23] MEDS ORDERED: GLUCOSE 10 TABS/TUBE PO PRN (12:54)
[2018-05-23] MEDS ORDERED: GLUCOSE 40% GEL 15 GM TUBE PO PRN (12:54)
[2018-05-23] MEDS ORDERED: GLUCAGON FOR INJ 1 MG VIAL IM PRN (12:54)
[2018-05-23] MEDS ORDERED: CARBOHYDRATES FOR HYPOGLYCEMIA PO PRN (12:54)
[2018-05-23] MEDS: HEPARIN SODIUM/DEXTROSE 25,000 UNITS/500 ML BAG IV SCH (13:02)
[2018-05-23] MEDS: EZETIMIBE 10 MG TABLET PO SCH (14:15)
[2018-05-23] MEDS: METOPROLOL SUCC 25MG EXT REL TAB PO SCH (14:15)
[2018-05-23] MEDS: INSULIN ASPART 100 UNITS/ML 3 ML PEN SC SCH ×3 (14:17→20:29)
[2018-05-23 17:15] LABS: Partial Thromboplastin Ratio 2.6
[2018-05-23 17:31] LABS: Partial Thromboplastin Time 68.1 Seconds (21.0-31.0)
[2018-05-23] MEDS: NITROGLYCERIN 2% OINTMENT 30GM TUBE EXT SCH (18:13)
[2018-05-23] MEDS: HydrALAZINE 10 MG TAB PO SCH (20:27)
[2018-05-23] MEDS: AMLODIPINE BESYLATE 5 MG TAB PO SCH (20:27)
[2018-05-23] MEDS ORDERED: INSULIN GLARGINE SOLOSTAR 100 UNITS/ML 3 ML PEN SQ SCH (21:00)
--- NOTE | 2018-05-23 21:41 | XRay Report ---
XR KUB CLINICAL HISTORY: RLQ pain COMPARISON STUDY: No previous studies for comparison. FINDINGS: There is no pathologic bowel dilatation. The patient is status post aortobiiliac stent mary ting. There is a probable left renal artery stent. There are nonspecific pelvic basin calcifications likely are presented phleboliths. There are scattered vascular calcifications present. IMPRESSION: No evidence of pathologic bowel dilatation. Electronically signed by: Xavier Carroll M.D. 05/23/2018 9:39 PM
--- NOTE | 2018-05-23 23:05 | Consultation Report ---
DATE OF CONSULTATION: 05/23/2018 REQUESTING PHYSICIAN: Dr. Stefan Hdz AOC PLANS INTELLIGENCE OFFICER: Cedrick Dubois D.O., [facility]. REASON FOR CONSULTATION: Unstable angina, possible non-ST elevation myocardial infarction. Dear Dr. Hdz: Thank you for requesting cardiology consultation on [place] with regards to his scapular discomfort and upper chest discomfort. As you know, he is a pleasant 78-year-old gentleman who unfortunately has a significant vasculopath. He notes over the last couple of weeks he started having some right scapular discomfort. This was new for him. Occasionally, would occur with activity and would occasionally occur at rest. He describes it as a sharp discomfort. It usually would go away within a couple of minutes. He did not use any sublingual nitroglycerin. Already, he contacted the office with regards to his pain. It sounds like it has been more progressive in the last couple of days. This morning, he awoke and was getting ready for pentecostal. In addition to the scapular discomfort, he had a heaviness across his upper chest, which was new for him. The discomfort did not go away. It started around 6:30 in the morning and lasted here in the Emergency Room until about 10:30 this morning when he received heparin and nitro paste. He is now pain free. He denied any lightheadedness or dizziness outside of when he received 3 sublingual nitroglycerins in the ER. The dizziness has resolved. He denies any palpitations, fluttering, or skips or feeling his heart racing. He denies any weakness one side or the other or slurred speech or difficulty finding words any bleeding, bruising, dark stools, or black stools. His abdomen is chronically distended and no worse than usual. He has no lower extremity edema. He denies a cough, fevers, chills, or sweats. He has significant bilateral subclavian disease but denies any claudication in his hands or symptoms to suggest vertebrobasilar syndrome. The rest of his system otherwise negative. PAST MEDICAL HISTORY: 1. Coronary artery disease, status post angioplasty and stenting with 2 drug-eluting stents of the proximal and the mid LAD and 1 in the right coronary artery 07/2011 at [facility]. 2. Coronary artery disease with history of an abnormal stress echo for 2011. 3. Diabetes mellitus type 2. 4. Abdominal aortic aneurysm measuring 5.5 cm, status post PVR 08/2011. 5. Known occlusion of the left subclavian artery with high-grade stenosis of the right subclavian artery. 6. Bilateral carotid artery disease with bilateral carotid bruits. 7. Hypertension. 8. Hyperlipidemia, intolerant of all statins and red yeast rice, on Zetia. 9. Low HDL. 10. History of bilateral renal artery stenosis, status post bilateral renal artery stenting in 2013. 11. 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 12. Chronic kidney disease with baseline creatinine of 1.9. 13. Partially visualized SMA artery dissection flap. 14. Proximal celiac artery stenosis. 15. Emphysema. SOCIAL HISTORY: He is . He denies any current tobacco use, having stopped a number of years ago. He smoked a pack a day for 45 years. He denies any alcohol. 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 He previously worked for [employer]. FAMILY HISTORY: Mom at 71 from complications related to COPD and heart disease. Dad at 74 from complications related to diabetes. ALLERGIES: INTOLERANCE TO ALL STATINS AND RED YEAST RICE SECONDARY TO SEVERE MYALGIAS. MEDICATIONS: Reviewed in electronic medical record. PHYSICAL EXAMINATION: GENERAL: He is awake, alert, oriented x3. He is currently pain free and appears comfortable. VITAL SIGNS: His heart rate is 85, blood pressure 133/78. His sats 95% on room air. His respirations are 21. HEENT: He has bilateral carotid bruits and therefore I did not palpate his carotid upstrokes. He also has bilateral bruits radiating out along his clavicles. His jugular venous pressure appeared normal. His sclerae is anicteric. His hearing is normal. LUNGS: Globally decreased breath sounds. No rales, rhonchi, or wheezing. HEART: Regular rate and rhythm. There is a soft systolic ejection murmur at the right sternal border. ABDOMEN: Soft, nontender, nondistended. Positive bowel sounds. EXTREMITIES: No clubbing, cyanosis, or edema. PSYCHIATRIC: His affect appeared appropriate. NEUROLOGIC: Awake, alert, and oriented x3. DIAGNOSTIC STUDIES: EKG sinus rhythm, anterior septal VT, age indeterminate, left anterior fascicular block, no acute ST-T. CT of his chest as discussed above LABORATORY STUDIES: White count 12.77, hemoglobin of 14.6, platelet count of 308. Troponin 0.319. Sodium 137, potassium 4.7, BUN 23, creatinine 1.83. Hemoglobin A1c 7.9 from 04/15/2018. IMPRESSION: 1. Unstable angina with possible non-ST elevation myocardial infarction. 2. Known coronary artery disease with prior angioplasty and stenting of the left anterior descending and the right coronary artery. 3. Known occlusion of the left subclavian with high grade stenosis of the right subclavian. 4. Status post post-void residual. 5. Celiac and superior mesenteric artery stenosis. 6. History of bilateral renal artery stenosis status post stenting with progressive stenosis. 7. Diabetes mellitus type 2. RECOMMENDATIONS: I made the following recommendations: 1. Will remain on his heparin drip. 2. We will add Plavix 300 mg with a load and then 75 mg thereafter. 3. He will remain on aspirin. 4. I started Toprol 25 mg daily. 5. He will remain on Zetia and we will have to discuss PCSK9 inhibitors as an outpatient given his intolerance to statins. 6. He will be n.p.o. after midnight. 7. We will start IV fluids at 80 mL an hour at midnight in order to hydrate him to reduce his risk of contrast-induced nephropathy, especially in light of the fact that he received a full contrast load for his chest CTA this morning. 8. I did discuss this case with interventional cardiology. Now that he is pain free, we will continue with heparin and nitro paste and his medical therapy and plan for catheterization tomorrow. Given the potential complexity of access to his heart, we would defer to tomorrow when the entire technology lab teacher team and vascular surgery are available. It is quite possible that we will have to enter via his right radial and he may need angioplasty and stenting of his right subclavian in order to get to his coronary circulation. I discussed the risks and benefits of cardiac catheterization. Risks including but not limited to bleeding or infection of the puncture site, damage to his radial or femoral artery, risk of contrast-induced nephropathy, allergic reaction to contrast and 100,000 risk of heart attack, stroke or dying with the procedure were discussed. He and his family understand the risks and wish to proceed. All this was discussed with Dr. Woo and Dr. Hdz as well as the Emergency Room. He will be admitted to PCU. He is currently pain free. I discussed if he has any additional discomfort to immediately let the nursing staff know. JAYE
[2018-05-23] MEDS ORDERED: SODIUM CHLORIDE 0.9% 1000ML 1,000 ML IV ONE (23:59)
[2018-05-24] MEDS: INSULIN ASPART 100 UNITS/ML 3 ML PEN SC SCH ×4 (00:16→18:26)
[2018-05-24] MEDS: NITROGLYCERIN 2% OINTMENT 30GM TUBE EXT SCH ×4 (00:24→18:36)
[2018-05-24] MEDS: HEPARIN SODIUM/DEXTROSE 25,000 UNITS/500 ML BAG IV SCH (02:51)
[2018-05-24] MEDS: LEVOTHYROXINE SODIUM 50 MCG TABLET PO SCH (05:52)
[2018-05-24 06:59] LABS: Basophils # (auto) 0.09 K/uL (0-0.2); Basophils % (auto) 0.7 %; Eosinophils # (auto) 0.16 K/uL (0-0.5); Eosinophils % (auto) 1.3 %; Hematocrit (blood only) 38.3 % (42-52); Hemoglobin 13.2 g/dL (14.0-18.0); Immature Granulocytes # (auto) 0.04 K/uL (0.00-0.02); Immature Granulocytes % (auto) 0.3 %; Lymphocytes # (auto) 2.77 K/uL (1.2-3.4); Lymphocytes % (auto) 22.7 %; Mean Corpuscular Hgb Conc 34.5 g/dL (32-36); Mean Corpuscular Volume 92.1 fL (80-100); Mean Platelet Volume 9.7 fL (7.4-10.4); Monocytes # (auto) 1.33 K/uL (0.11-0.59); Monocytes % (auto) 10.9 %; Neutrophils # (auto) 7.81 K/uL (1.4-6.5); Neutrophils % (auto) 64.1 %; Platelet Count 301 K/uL (130-400); RDW Coefficient of Variation 14.3 % (11.5-14.5); Red Blood Count 4.16 M/uL (4.7-6.1)
[2018-05-24 07:33] LABS: BUN Creatinine Ratio 12.9 (10-20); Calcium 8.3 mg/dl (8.5-10.1); Est GFR (African American) 39.5; Est GFR (Non-African American) 34.1; Magnesium 1.7 mg/dl (1.8-2.4); Potassium 4.2 mmol/L (3.5-5.1)
[2018-05-24 07:37] LABS: Partial Thromboplastin Ratio 2.8
[2018-05-24 07:42] LABS: Partial Thromboplastin Time 71.8 Seconds (21.0-31.0)
[2018-05-24] MEDS: ALPRAZolam 0.5 MG TABLET PO SCH (08:51)
[2018-05-24] MEDS: METOPROLOL SUCC 25MG EXT REL TAB PO SCH ×2 (08:51→21:05)
[2018-05-24] MEDS: EZETIMIBE 10 MG TABLET PO SCH (08:51)
[2018-05-24] MEDS: CLOPIDOGREL BISULFATE 75 MG TAB PO SCH (08:51)
[2018-05-24] MEDS: ASPIRIN 81 MG ECTAB PO SCH (08:52)
[2018-05-24] MEDS: HydrALAZINE 10 MG TAB PO SCH ×2 (08:52→20:59)
[2018-05-24] MEDS ORDERED: EZETIMIBE 10 MG TABLET PO SCH (09:00)
--- NOTE | 2018-05-24 09:14 | Cardiology Progress Note ---
Date of Service May 24, 2018 He feels well this morning. He denies any chest pain or chest pressure. Denies any palpitations lightheadedness or dizziness. He ambulated to the bathroom without angina or shortness of breath. He had a bowel movement this morning and denies any black stools or dark stools. He is anxious this morning in anticipation of the procedure. He had a number of questions which were answered in detail. Physical Exam 2 Vital Signs (Past 24 Hours): Last Vital Signs Temp 36.7 C 05/24/18 06:54 Pulse 90 05/24/18 06:54 Resp 17 05/24/18 06:54 BP 148/83 H 05/24/18 06:54 Pulse Ox 91 05/24/18 06:54 PHYSICAL EXAMINATION: GENERAL: He is awake, alert, oriented x3. He is currently pain free and appears comfortable. HEENT: He has bilateral carotid bruits and therefore I did not palpate his carotid upstrokes. He also has bilateral bruits radiating out along his clavicles. His jugular venous pressure appeared normal. His sclerae is anicteric. His hearing is normal. LUNGS: Globally decreased breath sounds. No rales, rhonchi, or wheezing. HEART: Regular rate and rhythm. There is a soft systolic ejection murmur at the right sternal border. ABDOMEN: Soft, nontender, nondistended. Positive bowel sounds. EXTREMITIES: No clubbing, cyanosis, or edema. PSYCHIATRIC: His affect appeared appropriate. IMPRESSION: 1. Unstable angina with possible non-ST elevation myocardial infarction. 2. Known coronary artery disease with prior angioplasty and stenting of the left anterior descending and the right coronary artery. 3. Known occlusion of the left subclavian with high grade stenosis of the right subclavian. 4. Status post PEVAR 5. Celiac and superior mesenteric artery stenosis. 6. History of bilateral renal artery stenosis status post stenting with progressive stenosis. 7. Diabetes mellitus type 2. His creatinine stable at 1.8 after yesterday's dye load for his CT angiogram. He is receiving IV fluids in anticipation of his catheterization today. I discussed the procedure in detail. He understands the risks and benefits. He was Plavix loaded with 300 mg of Plavix yesterday and 75 mg daily. He remains on his heparin drip as well as his Nitropaste. I will double his Toprol to 25 mg twice daily and he will remain on his amlodipine and Zetia and aspirin I would avoid reinitiation of his VALDO inhibitor therapy for at least 48 hours post catheterization in order to make sure that his creatinine remains stable. And with the addition of Toprol will likely have to reduce his lisinopril dose. All this was discussed with the patient as well as Dr. Woo.
[2018-05-24] MEDS ORDERED: MAGNESIUM SULFATE / D5W 1 GM/100 ML BAG IV ONE (09:30)
[2018-05-24] MEDS ORDERED: MIDAZOLAM HCL 1 MG/ML 2ML VIAL ONE (13:02)
[2018-05-24] MEDS ORDERED: fentaNYL citrate 100 MCG/2 ML VIAL ONE (13:02)
[2018-05-24] MEDS ORDERED: NiCARDipine HCL INJ 2.5 MG/ML 10 ML AMP ONE (13:34)
[2018-05-24] MEDS ORDERED: NITROGLYCERIN/D5W 100MCG/ML 20ML SYR ONE (13:35)
[2018-05-24] MEDS ORDERED: HEPARIN (PORCINE) 1000 UNIT/ML 10 ML (CATH LAB USE ONLY) ONE (13:35)
--- NOTE | 2018-05-24 13:42 | Cardiology Consultation ---
Date of Consultation May 24, 2018 Assessment & Plan (1) Non-ST elevation [place] (NSTEMI): 2. Prior coronary disease post PCI to LAD, RCA 3. PAD including left subclavian, carotids, celiac/SMA 4. AAA post EVAR 5. Chronic kidney disease 6. Hypertension 7. Hyperlipidemia Patient with known coronary artery disease, severe peripheral vascular disease and diabetes here with high risk acute coronary syndrome. Agree with proceeding with cardiac catheterization. Discussed risk, benefits, alternatives of procedure and willing to proceed. Loaded with Plavix yesterday. Further recommendations pending findings. History of Present Illness Attending Physician: Daniel Wilks MD History of Present Illness 78-year-old man with a history of coronary artery disease post prior PCI with 2 drug-eluting stents to his proximal mid LAD and 1 FRACISCO to RCA in July 2011 at [facility], type 2 diabetes, AAA post PEVAR 08/2011, known occlusive left subclavian artery, bilateral carotid artery disease, prior SMA/celiac disease, renal artery disease post bilateral renal artery stenting, type 2 diabetes, hypertension, hyperlipidemia, COPD who presented with intermittent chest/back pain found to have an NSTEMI with troponin up to 4.5. Interventional cardiology consulted for cardiac catheterization and possible PCI. Allergies Allergy/AdvReac Type Severity Reaction Status Date / Time No Known Allergies Allergy Mild Unverified 07/17/15 08:40 Home Medications Home Medications Medication Instructions Recorded Confirmed Type alprazolam 0.5 mg PO DAILY 05/23/18 05/23/18 History amlodipine 10 mg PO HS 05/23/18 05/23/18 History aspirin 81 mg PO DAILY 05/23/18 05/23/18 History ezetimibe 10 mg PO DAILY 05/23/18 05/23/18 History glimepiride 4 mg PO BID 05/23/18 05/23/18 History hydralazine 10 mg PO BID 05/23/18 05/23/18 History insulin glargine [Lantus Solostar 26 unit SUBCUT HS 05/23/18 05/23/18 History U-100 Insulin] levothyroxine [Synthroid] 50 mcg PO DAILY 05/23/18 05/23/18 History linagliptin [Tradjenta] 5 mg PO DAILY 05/23/18 05/23/18 History lisinopril 40 mg PO DAILY 05/23/18 05/23/18 History nitroglycerin [Nitrostat] 0.4 mg SUBLINGUAL UD PRN 05/23/18 05/23/18 History omega-3 fatty acids-fish oil [Fish 1,200 mg PO DAILY 05/23/18 05/23/18 History Oil] Patient History Medical History Hypertension (Chronic) Social History Current Living Situation: Spouse Other Information That Helps Us Care for You: No Feels Safe at Home: Yes Safety Concerns: Feels Safe At This Time Smoking Status: Former smoker Do You Dip or Chew Tobacco: No Second Hand Exposure: No Tobacco Cessation Education Requested by Patient: No Hx Alcohol Use: No Hx Substance Use: No Beliefs That Will Affect Care: None Preferred Language: Swedish Communication Ability: Effective Physician Assistant Psychiatry Required: No Review of Systems 10 point review of systems was completed and was otherwise negative unless stated in HPI Physical Exam 2 Vital Signs (Past 24 Hours): Last Vital Signs Temp 36.8 C 05/24/18 11:45 Pulse 74 05/24/18 11:45 Resp 18 05/24/18 11:45 BP 122/69 05/24/18 11:45 Pulse Ox 90 05/24/18 11:45 Physical Exam: General: Comfortable, no acute distress Eyes: Sclerae anicteric, extraocular movements intact HENT: Oropharynx clear mucous membranes moist Neck: NNo JVD. Lungs: Clear to auscultation bilaterally, no rhonchi or wheezes Cardiac: Regular rate and rhythm, no murmurs, rubs or gallops. Vascular: 2+ right radial Abdomen: Soft, nontender, nondistended, positive bowel sounds. Extremities: Well perfused, no peripheral edema Skin: No rashes or lesions. Neuro: Nonfocal Psych: Alert orient x3, normal affect and mood Results & Data Diagnostic Findings CTAno evidence of PE ECG Additional Comments: Sinus rhythm, nonspecific intraventricular conduction delay , left axis deviation, no significant ST of normalities
--- NOTE | 2018-05-24 14:17 | Hospitalist Progress Note ---
Date of Service May 24, 2018 Assessment & Plan (1) Non-ST elevation [place] (NSTEMI): 78 y/o M Hx CAD, DM II, HTN, HLD, hypothyroidism, CKD III, renal artery stenosis, AAA - EVAR 2011. Pt presents with central chest and back pain. Admits to SOB, denies N/V, diaphoresis. Initial labs are notable for an elevated troponin. An EKG does not comport with acute ischemia. A CTA was obtained considering his dissection history and back pain. No new dissection is present. NSTEMI - placed on heparin, NTG/morphine as needed, ASA - presumably he is statin intolerant. Patient has been loaded with Plavix on 05/23. The cardiac catheterization lab on 05/24 cardiology increase his beta-percy dosage on . 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 There is concern of course of post procedure diabetes nephropathy and avoiding nephrotoxins in the postoperative period is recommended Full code - full dose Heparin (2) Diabetes: DM II - placed on a SS and Lantus (3) Hypothyroidism: Hypothyroidism - cont Synthroid Subjective Patient had no symptoms and otherwise feels well he is anxious about his upcoming catheterization his daughter is at the bedside and all questions were answered Review of Systems ROS: well nourished well developed. No double vision blurry vision No problems with speech or swallowing No palpitations, no current chest pain or pressure No Wheezing or breathing issues No abdominal pain nausea vomiting diarrhea changes in appetite or weight No burning urine urine frequency or changes in color No focal joint pain or muscle pain No skin rashes or oral lesions No unusual bruising or bleeding No focused back pain or numbness or loss of strength No changes in memory or confusion Physical Exam 2 Vital Signs (Past 24 Hours): Last Vital Signs Temp 36.8 C 05/24/18 11:45 Pulse 74 05/24/18 11:45 Resp 18 05/24/18 11:45 BP 122/69 05/24/18 11:45 Pulse Ox 90 05/24/18 11:45 The patient appeared well nourished and normally developed. Vital signs as documented. Head exam is unremarkable. normocephalic, atraumatic Neck is without jugular venous distension, thyromegaly, or lymphademopathy does have auscultated bruits Lungs are clear to auscultation and percussion. Cardiac exam reveals Rhythm is regular. Systolic ejection murmur first and second heart sounds normal. Abdominal exam reveals normal bowel sounds, no masses, no organomegaly Extremities are nonedematous and does have challenging peripheral pulses Neurologic exam is A&Ox3, no focal deficits, strength is equal bilateral Psychologically seems neither anxious or depressed Skin is warm Dry without bruises or lesions
[2018-05-24] MEDS ORDERED: CLOPIDOGREL BISULFATE 300 MG TAB ONE (14:28)
--- NOTE | 2018-05-24 15:12 | Pre Anesthesia Assessment ---
Date of Service May 24, 2018 Pre Sedation Assessment Vital Signs Temp Pulse Pulse Resp BP Pulse Ox 05/24/18 11:45 36.8 C 74 18 122/69 90 05/24/18 08:00 74 05/24/18 06:54 36.7 C 90 17 148/83 H 91 05/24/18 03:17 37.1 C 89 17 112/73 93 05/23/18 23:39 37.1 C 85 17 126/74 90 05/23/18 19:19 36.7 C 98 H 18 166/98 H 92 05/23/18 16:55 93 H 05/23/18 15:48 36.5 C 86 18 127/71 91 Cardiovascular RRR, no murmur, no edema Respiratory normal respiratory effort, lungs clear to auscultation Pre-Sedation Airway Assessment Smoking Status: Former smoker Hx Sleep Apnea: No Hx Difficult Intubation: No Short, Thick Neck: No Thyromental Distance: > or= 3.5 Finger Breadths Mallampati Class: III Procedure Planning Contraindications for Sedation: none Current Medications Reviewed: Yes Notes The planned sedation has been discussed with the patient. Informed Consent was obtained. I have identified the patient, determined the appropriateness of sedation and have assessed the patient immediately prior to the procedure. All medicine(s) and interventions are by my order.
--- NOTE | 2018-05-24 15:12 | Post Anesthesia Assessment ---
Date of Service May 24, 2018 Post Sedation Assessment Vital Signs Temp Pulse Pulse Resp BP Pulse Ox 05/24/18 11:45 36.8 C 74 18 122/69 90 05/24/18 08:00 74 05/24/18 06:54 36.7 C 90 17 148/83 H 91 05/24/18 03:17 37.1 C 89 17 112/73 93 05/23/18 23:39 37.1 C 85 17 126/74 90 05/23/18 19:19 36.7 C 98 H 18 166/98 H 92 05/23/18 16:55 93 H 05/23/18 15:48 36.5 C 86 18 127/71 91 Recovery Score Activity: Moves 4 extremities Respiration: Deep Breath/Cough Circulation: +/-20% PreAnes Value Consciousness: Fully Awake Oxygen Saturation: O2 needed for >90% Discharge Sedation Level of Care: Fast Track Phase II Post Sedation Plan On clinical assessment, the patient appears to have tolerated the sedation without complications. Patient is recovering as anticipated. Patient will continue to be monitored by nursing and may be discharged when sedation discharge criteria are met per below protocol. Upon Completions of procedure and additional 15 minutes continue every 5 minute vital signs and the P.A.R. score; then discharge to a Phase I or Fast Track to Phase II per the following guidelines: * Discharge Patient to appropriate Phase II area if PAR is 8 or greater or return to pre- procedure baseline. The post - procedure orders will be as directed. * If PAR score is less than 8 or not return to pre-procedure baseline then patient will follow Phase I monitoring till PAR is reached for Phase II. The Phase I may be done in procedure room or may call to secure a Phase I area. * If naloxone or flumazenil are used for reversal, hold in Phase I for continued monitoring from when last reversal dose was given for a minimum of 60 minutes or longer pending the nurse and/or physician discretion of patient condition before discharge to Phase II. Please call the Sedation Physician to re-evaluate and complete post-note for discharge to Phase II area. Do NOT discharge from procedure sedation or Phase 1 until post- sedation evaluation note is complete by procedure /sedation MD Sedation Discharge Instructions to be given to the patient at discharge to home.
--- NOTE | 2018-05-24 15:27 | Cardiac Catheterization ---
Cardiac Cath Procedure Full Procedure Date May 24, 2018 Pre-Procedure Diagnosis Pre-Procedure Diagnosis: Non STEMI AUC Score AUC Score: 8 Post-Procedure Diagnosis Post-Procedure Diagnosis: Severe CAD and Successful PCI Procedure(s) Performed Procedure(s) Performed: Coronary Angiography, Left Heart Cath and Drug Eluting Stent Radiator Fitter Gene Woo MD Coin Collector(s) Prudence Estimated Blood Loss Estimated Blood Loss: 10 Medication(s) Medication(s): Clopidogrel, Fentanyl, Heparin, Lidocaine 1%, Nicardipine, Nitroglycerin and Versed Summary of Findings Indication: High risk NSTEMI Access: 6 Danish right radial artery Catheters: [place], EBU 3.5 guide Findings: LM -luminal irregularities LAD -widely patent proximal, mid LAD stents Circumflex -30-40% ostial stenosis, 95-99% mid disease stenosis at bifurcation of second OM. OM 2 with 40-50% ostial stenosis RCA -dominant, large caliber vessel, widely patent latemid stent. Distal luminal irregularities LVEDP - [] -- PCI -- Antithrombotic therapy: Heparin, clopidogrel Procedure: Left main cannulated with EBU 3.5 guide Motion Graphics Designer 50 wire passed across lesion into OM 2 Whisper wire passed across lesion into distal PLB Mid circumflex lesion predilated with 2.5 compliant balloon OM 2 ostium predilated with 2.5 compliant balloon Mid circumflex stented with 3.0 x 18 mm Joppa drug-eluting stent across ostium of OM 2 OM 2 rewired with whisper wire OM 2 ostium dilated with 1.5 compliant balloon. Inferior branch of OM 2 dilated with 1.5 balloon Stent postdilated with 3.25 NC Questionable edge dissection at the distal aspect of mid circumflex stent attempt made to stent with 2.5 mm Joppa FRACISCO. Unable to pass stent across ostium of circumflex. In the setting of patient's CKD decision made to forego further attempts. Some haziness noted in ostium of circumflex after further attempts at intervention. NAMRATA-3 flow throughout the vessel. Stent well-expanded with no significant residual stenosis. Arterial Closure: TR band Summary: 1. Severe single vessel coronary artery disease -95-99% mid circumflex at bifurcation of moderate caliber OM 2 2. Normal intracardiac filling pressure 3. Successful PCI of mid circumflex with single drug-eluting stent (3.0 x 18 mm Joppa; postdilated with 3.25 NC proximally). POBA of ostium of OM 2 and ostium of inferior branch of OM 2 with 1.5 balloon -Mild-moderate residual disease distal to circumflex stent and involving ostium of circumflex. Recommendations: To PCU for continued monitoring Reloaded with clopidogrel 300 mg in blood and plasma laboratory assistant Continue dual-antiplatelet therapy for at least one year Continue statin, and ASCVD risk factor modification Consult cardiac Rehab No plans for additional intervention unless recurrent symptoms. Hemodynamics Rest Ao:: -- Final Ao: -- LV: -- Recommendations Recommendations: PCI without planned CABG Specimens Specimens: None Radiation Exposure (mGy) -- Contrast (mls) -- Drains Drains: none Anesthesia moderate Procedural Complication(s) None Disposition PCU ACC Data: Design Consultant Cardiac Status Clinical evaluation leading to the procedure CAD Presenation: Non STEMI Anginal Classification: CCS IV Heart Failure: No Cardiogenic Shock within 24 Hours: No Cardiac Arrest within 24 Hours: No Imaging Studies Past 6 Months: Yes Stress Studies Past 6 Months: No Diagnostic Physicians Name: Gene Woo MD Status: Elective Closure Device Percutaneous Entry Location: Radial Closure Device: Radial Band Recommendations: PCI without planned CABG PCI Indication: PCI for high risk Non-BRODY Lesion Segment Name: mid circumflex Culprit Artery: Yes Stenosis Prior to Rx (%): 98 Chronic Total Occlusion: No IVUS: No FFR: No Pre-Procedure NAMRATA Flow: 3 Previously Treated Lesion: No Lesion Complexity: Non-High/Non-C Lesion Length (mm): 15 Thrombus Present: Yes Bifurcation Lesion: Yes Guidewire Across Lesion: Stenosis Post-Procedure (%): 0 Post-Procedure NAMRATA Flow : 3 Devices(s) Deployed: Yes Yes Intraprocedure Events Significant Disection: No Perforation: No
[2018-05-24] MEDS ORDERED: INSULIN GLARGINE SOLOSTAR 100 UNITS/ML 3 ML PEN SQ SCH (21:00)
[2018-05-24] MEDS: AMLODIPINE BESYLATE 5 MG TAB PO SCH (21:05)
[2018-05-24] MEDS ORDERED: SODIUM CHLORIDE 0.9% 1000ML 1,000 ML IV ONE (23:59)
[2018-05-25] MEDS: NITROGLYCERIN 2% OINTMENT 30GM TUBE EXT SCH ×3 (00:20→12:08)
[2018-05-25] MEDS: LEVOTHYROXINE SODIUM 50 MCG TABLET PO SCH (06:18)
[2018-05-25 06:53] LABS: Partial Thromboplastin Ratio 1.1; Partial Thromboplastin Time 28.7 Seconds (21.0-31.0)
[2018-05-25 08:07] LABS: BUN Creatinine Ratio 13.1 (10-20); Calcium 8.6 mg/dl (8.5-10.1); Creatinine Clr Calc Pharmacy 37.6 ml/min; Est GFR (African American) 39.3; Est GFR (Non-African American) 33.9; Potassium 4.6 mmol/L (3.5-5.1)
[2018-05-25] MEDS: INSULIN ASPART 100 UNITS/ML 3 ML PEN SC SCH ×2 (08:08→11:15)
--- NOTE | 2018-05-25 08:13 | Hospitalist Progress Note ---
Date of Service May 25, 2018 Assessment & Plan (1) Non-ST elevation [place] (NSTEMI): 78 y/o M Hx CAD, DM II, HTN, HLD, hypothyroidism, CKD III, renal artery stenosis, AAA - EVAR 2011. Pt presents with central chest and back pain. Admits to SOB, denies N/V, diaphoresis. Initial labs are notable for an elevated troponin. An EKG does not comport with acute ischemia. A CTA was obtained considering his dissection history and back pain. No new dissection is present. NSTEMI - placed on heparin, NTG/morphine as needed, ASA - presumably he is statin intolerant. Patient has been loaded with Plavix on 05/23. The cardiac catheterization lab on 05/24 cardiology increase his beta-percy dosage on . 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 There is concern of course of post procedure diabetes nephropathy and avoiding nephrotoxins in the postoperative period is recommended Full code - full dose Heparin (2) Diabetes: DM II - placed on a SS and Lantus (3) Hypothyroidism: Hypothyroidism - cont Synthroid Physical Exam 2 Vital Signs (Past 24 Hours): Last Vital Signs Temp 36.6 C 05/25/18 07:08 Pulse 93 H 05/25/18 07:08 Resp 24 05/25/18 07:08 BP 155/94 H 05/25/18 07:28 Pulse Ox 93 05/25/18 07:08
[2018-05-25] MEDS: HydrALAZINE 10 MG TAB PO SCH (08:44)
[2018-05-25] MEDS: METOPROLOL SUCC 25MG EXT REL TAB PO SCH (08:44)
[2018-05-25] MEDS: ASPIRIN 81 MG ECTAB PO SCH (08:44)
[2018-05-25] MEDS: EZETIMIBE 10 MG TABLET PO SCH (08:45)
[2018-05-25] MEDS: CLOPIDOGREL BISULFATE 75 MG TAB PO SCH (08:45)
--- NOTE | 2018-05-25 09:26 | Cardiology Progress Note ---
Date of Service May 25, 2018 He feels much better this morning. He describes a hollow sensation in his chest like he can actually take a deep breath without any discomfort. He now recognizes that that mild heaviness was his heart. He has had no scapular discomfort since in the emergency room. He is eating. He denies any bleeding or bruising dark stools or black stools he denies any light his dizziness presyncope or syncope or lower extremity edema. He feels significantly better and wishes to go home. Physical Exam 2 Vital Signs (Past 24 Hours): Last Vital Signs Temp 36.6 C 05/25/18 07:08 Pulse 93 H 05/25/18 07:08 Resp 24 05/25/18 07:08 BP 155/94 H 05/25/18 07:28 Pulse Ox 93 05/25/18 07:08 Findings: LM -luminal irregularities LAD -widely patent proximal, mid LAD stents Circumflex -30-40% ostial stenosis, 95-99% mid disease stenosis at bifurcation of second OM. OM 2 with 40-50% ostial stenosis RCA -dominant, large caliber vessel, widely patent latemid stent. Distal luminal irregularities PHYSICAL EXAMINATION: GENERAL: He is awake, alert, oriented x3. He is currently pain free and appears comfortable. HEENT: He has bilateral carotid bruits and therefore I did not palpate his carotid upstrokes. He also has bilateral bruits radiating out along his clavicles. His jugular venous pressure appeared normal. His sclerae is anicteric. His hearing is normal. LUNGS: Globally decreased breath sounds. No rales, rhonchi, or wheezing. HEART: Regular rate and rhythm. There is a soft systolic ejection murmur at the right sternal border. ABDOMEN: Soft, nontender, nondistended. Positive bowel sounds. EXTREMITIES: No clubbing, cyanosis, or edema. He has a brisk 2+ right radial pulse in his right hand is warm to touch PSYCHIATRIC: His affect appeared appropriate. IMPRESSION: 1. Non-ST elevation myocardial infarction. 2. Known coronary artery disease with prior angioplasty and stenting of the left anterior descending and the right coronary artery. 3. 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 4. Status post PEVAR 5. Celiac and superior mesenteric artery stenosis. 6. History of bilateral renal artery stenosis status post stenting with progressive stenosis. 7. Diabetes mellitus type 2. He is status post percutaneous intervention of a bifurcation lesion involving the circumflex and OM 2 with placement of a drug-eluting stent in the circumflex and plain old balloon angioplasty of OM 2. He has a brisk right radial pulse. He is feeling much better this morning. I would ambulate him in the hallway and if he feels well he could be discharged today. His baseline creatinine is 1.8 and remained stable this morning. I would hold off on restarting his lisinopril that he was on at home given the fact he had 2 dye loads. We can reinitiate this as an outpatient his creatinine stable in 10 days time. He should be discharged on aspirin and Plavix as well as Toprol 25 mg twice daily which is new for him, Zetia, amlodipine 10 mg daily, I will increase his hydralazine from 10 mg twice daily to 25 mg twice daily until we can reinitiate his lisinopril. He also needs prescription for sublingual nitroglycerin. He was given post-cath instructions with regards to avoiding lifting anything more than 5 pounds with his right wrist for 3 days. In addition he was told not to submerge his right wrist in water. He should avoid driving for 2-3 days. We will call him to see him in the office in the next 10 days. I did review with him signs and symptoms of angina similar to what he had when he came into the hospital.
[2018-05-25] MEDS: ALPRAZolam 0.5 MG TABLET PO SCH (10:05)
--- NOTE | 2018-05-25 18:13 | Discharge Summary ---
Date of Service May 25, 2018 Admission HPI Per Admitting Provider 78 y/o M Hx CAD, DM II, HTN, HLD, hypothyroidism, CKD III, renal artery stenosis , AAA - EVAR 2011. Pt presents with central chest and back pain. Admits to SOB , denies N/V, diaphoresis. Initial labs are notable for an elevated troponin. An EKG does not comport with acute ischemia. A CTA was obtained considering his dissection histroy and back pain. No new dissection is present. PMH: 1) AAA - EVAR 2011 2) DM II 3) HTN 4) HLD 5) CAD - history of stents 6) L subclavian A occlusion 7) BL renal A stenosis 8) Diverticulitis 9) Hypothryoidism 10) CKD III Surgical: 1) EVAR 2011 2) Cataract Social: Quit smoking 7 years ago, does not drink Family: Father owing to complications of DM Principal Diagnosis Coronary artery disease status post stent of circumflex Discharge Exam Constitutional well developed and average body habitus Eyes no conjunctival abnormality and no scleral abnormality Neck normal visual inspection and trachea midline Respiratory normal respiratory effort; no respiratory distress Auscultation: lungs clear to auscultation bilaterally Cardiovascular RRR, no murmur, no edema Gastrointestinal (Abdomen) normal bowel sounds, soft, nontender, no hepatosplenomegaly Musculoskeletal no cyanosis or clubbing, extremities motor strength 5/5 Discharge Data Allergies Allergy/AdvReac Type Severity Reaction Status Date / Time No Known Allergies Allergy Mild Unverified 07/17/15 08:40 Consultations 05/23/18 10:14 ED Decision to Admit Stat 05/23/18 12:03 Consult Cardiac Catheterization Stat 05/23/18 12:24 Consult Cardiology Routine Procedures Performed Operation Date: 05/24/18 12:00 Actual Procedures s Cath, Left with Cors and Vent - Pietro Woo MD s Cineradiography w/Routine Exam - Pietro Woo MD p Drug Eluting Stent SGl Vessel - Pietro Woo MD s POBA SGL Vessel - Pietro Woo MD Ordered Studies 05/23/18 10:33 CT angio chest wo/w con Stat 05/24/18 06:59 CL Cath Imgs for PACS use only Routine Hospital Course (1) Non-ST elevation [place] (NSTEMI): 78 y/o M Hx CAD, DM II, HTN, HLD, hypothyroidism, CKD III, renal artery stenosis, AAA - EVAR 2011. Pt presents with central chest and back pain. Admits to SOB, denies N/V, diaphoresis. Initial labs are notable for an elevated troponin. An EKG does not comport with acute ischemia. A CTA was obtained considering his dissection history and back pain. No new dissection is present. NSTEMI - . In the past patient has not tolerated statin dosing and does not wish to be prescribed at time of discharge Patient had a cardiac catheterization 05/24 showing occlusion of his circumflex artery status post successful employment of stenting. The patient is on aspirin and Plavix, escalation of his metoprolol hydralazine doses and will continue Zetia with outpatient discussions of statins further with Dr. 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 (2) Diabetes: DM II -resume home medication (3) Hypothyroidism: Hypothyroidism - cont Synthroid Total Time Total Time Spent Total Time Spent (In Minutes): greater than 30 minutes were required to prepare discharge Discharge Plan Discharge Items Patient Disposition: Home - Self-Care Reason For Visit: CHEST AND BACK PAIN Discharge Diagnosis: unstable angina, with coronary artery stent placement Discharge Goals: Decrease discomfort, Diagnostic testing and Improve disease control Activity: Resume your previous activity Non-emergency contact: Primary Care Provider and Financial Officer Call non-emergency contact if: you have any medication questions Follow-up/Referrals: Pietro Calvo MD [Primary Care Provider] - 06/02/18 2:30 pm (Please, follow up with Dr. Calvo on ThursdayJune 02 at 2:30 pm. *If you need to change this appointment, call the office at [phone].) Diet: Heart Healthy Addtl Provider Instructions: Please follow up with Dr Dubois as soon as possible Prescriptions: New hydralazine 25 mg Tablet 25 mg PO BID Qty: 60 RF: 4 clopidogrel 75 mg Tablet 75 mg PO QAM Qty: 90 RF: 0 metoprolol succinate 25 mg Tablet Extended Release 24 Hr 25 mg PO BID Qty: 60 RF: 3 nitroglycerin [Nitrostat] 0.4 mg Tablet, Sublingual 0.4 mg Sublingual UD PRN (Reason: chest pain) Qty: 1 RF: 4 Continue aspirin 81 mg tablet,delayed release (DR/EC) 81 mg PO DAILY RF: 0 alprazolam 0.5 mg tablet 0.5 mg PO DAILY RF: 0 amlodipine 10 mg tablet 10 mg PO HS RF: 0 levothyroxine 50 mcg tablet 50 mcg PO DAILY RF: 0 glimepiride 4 mg tablet 4 mg PO BID RF: 0 nitroglycerin [Nitrostat] 0.4 mg Tablet, Sublingual 0.4 mg Sublingual UD PRN (Reason: Chest Pain) RF: 0 lisinopril 40 mg tablet 40 mg PO DAILY RF: 0 ezetimibe 10 mg tablet 10 mg PO DAILY RF: 0 omega-3 fatty acids-fish oil [Fish Oil] 300-1,000 mg Capsule 1,200 mg PO DAILY RF: 0 insulin glargine 100 unit/mL (3 mL) insulin pen 26 unit subcut HS RF: 0 linagliptin 5 mg tablet 5 mg PO DAILY RF: 0 Discontinued hydralazine 10 mg tablet 10 mg PO BID RF: 0 Stand-Alone Forms: [facility] Discharge Orders: Discharge Order (Routine); Ordered 05/25/18 Ordered By: Daniel Wilks Admission Data Admit Date/Time: 05/23/18 10:52 Attending Provider: Daniel Wilks Admit Provider: Stefan Hdz Primary Care Provider: Pietro Calvo Other Providers: Ghada Roblero ; Pietro Woo ; Cedrick Dubois ; Stefan Hdz Service: Telemetry Other Interventions: Discharge Summary Assessment (RN) Last Done: 05/25/18 11:30 DC Date/Time DO NOT enter until pt leaves facility: 05/25/18 12:10
== END 2018-05-25 12:10 | disposition home or self-care (01) ==
LOC: 2S 08:21 → ED 08:21 → SUATTDRO 10:52 → 2S 12:04

== ENCOUNTER 2019-05-31 18:44 | Inpatient (IN) ==
[2019-05-31] MEDS ORDERED: ACETAMINOPHEN 500 MG TAB PO STA (19:32)
[2019-05-31] MEDS ORDERED: OSELTAMIVIR PHOSPHATE 75 MG CAP PO STA (19:32)
[2019-05-31] MEDS ORDERED: ALBUT/IPRATROP 3MG/0.5MG NEB 3 ML VIAL NEB STA (19:32)
[2019-05-31] MEDS ORDERED: LACTATED RINGER'S 500 ML IV ONE (19:32)
[2019-05-31 20:00] LABS: Basophils # (auto) 0.07 K/uL (0-0.2); Basophils % (auto) 0.6 %; Eosinophils # (auto) 0.05 K/uL (0-0.5); Eosinophils % (auto) 0.5 %; Hemoglobin 15.1 g/dL (14.0-18.0); Immature Granulocytes # (auto) 0.05 K/uL (0.00-0.02); Immature Granulocytes % (auto) 0.5 %; Lymphocytes # (auto) 1.66 K/uL (1.2-3.4); Lymphocytes % (auto) 15.1 %; Mean Corpuscular Hemoglobin 31.3 pg (25-34); Mean Corpuscular Hgb Conc 34.3 g/dL (32-36); Mean Corpuscular Volume 91.3 fL (80-100); Mean Platelet Volume 9.7 fL (7.4-10.4); Monocytes # (auto) 1.21 K/uL (0.11-0.59); Neutrophils # (auto) 7.98 K/uL (1.4-6.5); Neutrophils % (auto) 72.3 %; Platelet Count 251 K/uL (130-400); RDW Coefficient of Variation 13.8 % (11.5-14.5); Red Blood Count 4.82 M/uL (4.7-6.1); White Blood Count 11.02 K/uL (4.8-10.8)
[2019-05-31 20:14] LABS: Partial Thromboplastin Ratio 1.1; Prothrombin Time 10.4 Seconds (9.0-12.0)
--- NOTE | 2019-05-31 20:14 | XRay Report ---
XR chest 1V portable CLINICAL HISTORY: SEPSIS COMPARISON STUDY: 05/23/2018 FINDINGS: The heart remains enlarged. There is slight improvement in the previously described congest camila failure/fluid overload. There is no lobar consolidation[. No pleural effusions are visualized. IMPRESSION: Cardiomegaly and slight improvement in the congestive failure/fluid overload pattern. No evidence of lobar consolidation ACT 112: Negative or not required by law. Electronically signed by: Xavier Carroll M.D. 05/31/2019 8:12 PM
[2019-05-31 20:15] LABS: Influenza B virus by PCR Neg for Influ B (Neg)
[2019-05-31 20:16] LABS: Albumin Level 3.9 gm/dl (3.4-5.0); BUN Creatinine Ratio 18.1 (10-20); Creatinine Clr Calc Pharmacy 31.8 ml/min; Est GFR (African American) 32.5; Est GFR (Non-African American) 28.1; Magnesium 1.7 mg/dl (1.8-2.4); Potassium 4.7 mmol/L (3.5-5.1)
--- NOTE | 2019-05-31 20:17 | Emergency Department Note ---
Entered by Richa Ji acting as a scribe for ED Provider Note CHIEF COMPLAINT: Flu-like symptoms HISTORY OF PRESENT ILLNESS: The patient is an 79 year old male who presents to the Emergency Room with complaints of flu-like symptoms that began 3 days ago. He is accompanied by his who was diagnosed with Influenza A 4 days ago here in the ED. The patient complains of a fever, chills, cough, shortness of breath, and body aches. He did take Tylenol earlier today. Pt denies LOC, headache, diaphoresis, visual changes, neck pain, chest pain, nausea, vomiting, abdominal pain, back pain, melena, hematochezia, urinary symptoms, numbness, weakness, lymphadenopathy, rash, or other complaints. REVIEW OF SYSTEMS: See HPI for pertinent positives and negatives. A total of ten systems were reviewed and were otherwise negative. PMHx/PSHx: CAD. CKD. DM. NSTEMI. SOCIAL HISTORY: Patient lives at home. PHYSICAL EXAM: GENERAL: Awake, alert, ill-appearing, in no distress HENT: Normocephalic, atraumatic. Oropharynx unremarkable. EYES: PERRL. Normal conjunctiva. Sclera non-icteric. NECK: Inspection normal. Non-tender. Supple. No nuchal rigidity. FROM. No masses. RESPIRATORY: Course breath sounds. No wheezes. No rales. Normal respiratory effort. CARDIAC: Tachycardic rate. Normal rhythm. No murmurs. No rubs. Extremities warm and well perfused. Pulses equal. No JVD. GI: Soft, non-distended. No tenderness to palpation. No rebound or guarding. No masses. RECTAL: Deferred. MUSCULOSKELETAL: Atraumatic. Chest examination reveals no tenderness. The back is symmetrical on inspection without obvious abnormality. There is no CVA tenderness to palpation. No joint edema. LOWER EXTREMITIES: Calves are equal size bilaterally and non-tender. No edema. No discoloration. NEURO: Normal sensorium. No sensory or motor deficits noted. SKIN: No rash or jaundice noted. EMERGENCY DEPARTMENT COURSE: 1923: Past medical records reviewed. The patient was evaluated in room A2, and a complete history and physical examination were performed. 2104: I reevaluated the patient. He is resting comfortably. I discussed my recommendation he remain in the hospital for further evaluation and management and he is agreeable with the plan. 2109: I discussed the patients case with Dr. Enamorado, [facility] Hospitalist. The patient will be further evaluated. MEDICAL DECISION MAKING: Triage Nursing notes reviewed and agree them. Additional history obtained from family. The was diagnosed with influenza A this weekend. The patient's history was concerning for fever. Differential diagnosis: Etiologies such as otitis, pharyngitis, pneumonia, influenza, meningitis, urinary tract infection, sepsis, bacteremia, viral syndrome, as well as others were entertained. Physical examination: As above. The patient was requiring supplemental oxygen. He was tachycardic. ER treatment provided: Supplemental oxygen Oral Tylenol Oral Tamiflu On reassessment the patient felt better. NSS hydration IV Cefepime IV Vancomycin Diagnostics interpreted by me: ECG: Tachycardia The labs revealed a positive Flu swab, elevated troponin, unremarkable chemistry panel. Lactate normal. Imaging studies: Negative for failure or infiltrate. Consultation: A consultation was placed with [facility] [place]. The case was discussed and diagnostics were reviewed. The patient was evaluated in the ER for further treatment. CRITICAL CARE: I have personally spent greater than 42 minutes of critical care time in the direct management of this patient. This includes bedside care, interpretation of diagnostic studies, and testing, discussion with consultants, patient, and family members, and other required patient management activities. These minutes are in excess of all separately billable procedures. IMPRESSION: Hypoxia Influenza Elevated Troponin PLAN: Admit The scribe's documentation has been prepared under my direction and personally reviewed by me in its entirety. I confirm that the note above accurately reflects all work, treatment, procedures, and medical decision making performed by me. 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 Beliefs That Will Affect Care: None marital status: Current Living Situation: Spouse current occupation: Retired Feels Safe at Home: Yes Smoking Status: Former smoker Cigarettes Per Day: 20 ; Second Hand Exposure: No ; Hx Alcohol Use: No Hx Substance Use: No caffeine: Yes Seatbelt Use: always Sunscreen Use: No Results & Data Vital Signs Vital Signs - 24 hr 05/31/19 19:10 05/31/19 19:28 05/31/19 19:30 Temperature 102.0 F H Temperature Source Oral Pulse Rate 129 H 125 H 123 H Pulse Rate [Apical] Pulse Rate [Right Finger] Pulse Rate from SpO2 Sensor 126 H 123 H Pulse Rhythm [Apical] Respiratory Rate 18 28 H 26 H Respiratory Effort / Characteristics Non-Labored Respiratory Depth Normal Respiratory Pattern Regular Blood Pressure 164/86 H Blood Pressure Mean 112 Pulse Oximetry 87 L 95 97 Oxygen Delivery Method Room Air Oxygen Flow Rate Sepsis Recent Fever Within 48 Hours Yes Sepsis Action Taken by Nursing Physician Notified 05/31/19 19:32 05/31/19 19:35 05/31/19 19:40 Temperature Temperature Source Pulse Rate 132 H 120 H 115 H Pulse Rate [Apical] 132 H Pulse Rate [Right Finger] Pulse Rate from SpO2 Sensor 121 H 115 H Pulse Rhythm [Apical] Regular Respiratory Rate 24 29 H 24 Respiratory Effort / Characteristics Respiratory Depth Shallow Respiratory Pattern Blood Pressure Blood Pressure Mean Pulse Oximetry 132 H 96 98 Oxygen Delivery Method Room Air Oxygen Flow Rate Sepsis Recent Fever Within 48 Hours Sepsis Action Taken by Nursing 05/31/19 19:45 05/31/19 19:50 05/31/19 19:55 Temperature Temperature Source Pulse Rate 126 H 114 H 120 H Pulse Rate [Apical] Pulse Rate [Right Finger] Pulse Rate from SpO2 Sensor 125 H 114 H 122 H Pulse Rhythm [Apical] Respiratory Rate 26 H 28 H 26 H Respiratory Effort / Characteristics Respiratory Depth Respiratory Pattern Blood Pressure Blood Pressure Mean Pulse Oximetry 95 98 97 Oxygen Delivery Method Oxygen Flow Rate Sepsis Recent Fever Within 48 Hours Sepsis Action Taken by Nursing 05/31/19 20:00 05/31/19 20:04 05/31/19 20:05 Temperature Temperature Source Pulse Rate 120 H 112 H Pulse Rate [Apical] Pulse Rate [Right Finger] 110 H Pulse Rate from SpO2 Sensor 120 H Pulse Rhythm [Apical] Respiratory Rate 31 H 20 22 Respiratory Effort / Characteristics Non-Labored Spontaneous Respiratory Depth Respiratory Pattern Blood Pressure Blood Pressure Mean Pulse Oximetry 96 97 Oxygen Delivery Method Nasal Cannula Oxygen Flow Rate 1.5 Sepsis Recent Fever Within 48 Hours Sepsis Action Taken by Nursing 05/31/19 20:10 05/31/19 20:15 05/31/19 20:20 Temperature Temperature Source Pulse Rate 112 H 106 H 108 H Pulse Rate [Apical] Pulse Rate [Right Finger] Pulse Rate from SpO2 Sensor 110 H Pulse Rhythm [Apical] Respiratory Rate 25 H 17 31 H Respiratory Effort / Characteristics Respiratory Depth Respiratory Pattern Blood Pressure Blood Pressure Mean Pulse Oximetry 90 Oxygen Delivery Method Oxygen Flow Rate Sepsis Recent Fever Within 48 Hours Sepsis Action Taken by Nursing 05/31/19 20:25 05/31/19 20:30 05/31/19 20:35 Temperature Temperature Source Pulse Rate 110 H 104 H 103 H Pulse Rate [Apical] Pulse Rate [Right Finger] Pulse Rate from SpO2 Sensor 110 H 104 H 103 H Pulse Rhythm [Apical] Respiratory Rate 32 H 29 H 25 H Respiratory Effort / Characteristics Respiratory Depth Respiratory Pattern Blood Pressure Blood Pressure Mean Pulse Oximetry 96 94 94 Oxygen Delivery Method Oxygen Flow Rate Sepsis Recent Fever Within 48 Hours Sepsis Action Taken by Nursing 05/31/19 20:40 05/31/19 20:45 05/31/19 20:50 Temperature 102.6 F H Temperature Source Oral Pulse Rate 102 H 100 H 102 H Pulse Rate [Apical] Pulse Rate [Right Finger] 99 H Pulse Rate from SpO2 Sensor 101 H 101 H 104 H Pulse Rhythm [Apical] Respiratory Rate 27 H 27 H 30 H Respiratory Effort / Characteristics Respiratory Depth Respiratory Pattern Blood Pressure Blood Pressure Mean Pulse Oximetry 92 94 93 Oxygen Delivery Method Nasal Cannula Oxygen Flow Rate 2 Sepsis Recent Fever Within 48 Hours Sepsis Action Taken by Nursing 05/31/19 20:56 05/31/19 20:59 05/31/19 21:00 Temperature Temperature Source Pulse Rate 101 H 101 H 101 H Pulse Rate [Apical] Pulse Rate [Right Finger] Pulse Rate from SpO2 Sensor 102 H 101 H 95 H Pulse Rhythm [Apical] Respiratory Rate 19 27 H 24 Respiratory Effort / Characteristics Respiratory Depth Respiratory Pattern Blood Pressure Blood Pressure Mean 127 Pulse Oximetry 95 93 87 L Oxygen Delivery Method Oxygen Flow Rate Sepsis Recent Fever Within 48 Hours Sepsis Action Taken by Nursing 05/31/19 21:05 05/31/19 21:07 05/31/19 21:10 Temperature Temperature Source Pulse Rate 98 H 101 H 100 H Pulse Rate [Apical] Pulse Rate [Right Finger] Pulse Rate from SpO2 Sensor 98 H 101 H 100 H Pulse Rhythm [Apical] Respiratory Rate 29 H 25 H 24 Respiratory Effort / Characteristics Respiratory Depth Respiratory Pattern Blood Pressure 88/63 L 99/71 L 88/56 L Blood Pressure Mean 83 84 65 Pulse Oximetry 93 91 92 Oxygen Delivery Method Oxygen Flow Rate Sepsis Recent Fever Within 48 Hours Sepsis Action Taken by Nursing 05/31/19 21:15 05/31/19 21:20 05/31/19 21:25 Temperature Temperature Source Pulse Rate 99 H 101 H 103 H Pulse Rate [Apical] Pulse Rate [Right Finger] Pulse Rate from SpO2 Sensor 99 H 102 H 102 H Pulse Rhythm [Apical] Respiratory Rate 23 22 19 Respiratory Effort / Characteristics Respiratory Depth Respiratory Pattern Blood Pressure 97/57 L 102/64 109/72 Blood Pressure Mean 61 68 82 Pulse Oximetry 93 93 93 Oxygen Delivery Method Oxygen Flow Rate Sepsis Recent Fever Within 48 Hours Sepsis Action Taken by Nursing 05/31/19 21:30 05/31/19 21:35 05/31/19 21:40 Temperature Temperature Source Pulse Rate 97 H 97 H 93 H Pulse Rate [Apical] Pulse Rate [Right Finger] Pulse Rate from SpO2 Sensor 96 H 96 H 91 H Pulse Rhythm [Apical] Respiratory Rate 24 25 H 20 Respiratory Effort / Characteristics Respiratory Depth Respiratory Pattern Blood Pressure 96/64 L 91/59 L 98/58 L Blood Pressure Mean 73 68 63 Pulse Oximetry 95 96 95 Oxygen Delivery Method Oxygen Flow Rate Sepsis Recent Fever Within 48 Hours Sepsis Action Taken by [facility] Medications Current Medication List: was personally reviewed by me Laboratory Data Attestation: I reviewed the patient's lab results. Result diagrams: 06/01/19 07:56 06/03/19 06:26 Lab Results 05/31/19 05/31/19 05/31/19 Range/Units 19:35 19:46 19:46 WBC 11.02 H (4.8-10.8) K/uL RBC 4.82 (4.7-6.1) M/uL Hgb 15.1 (14.0-18.0) g/dL Hct 44.0 (42-52) % MCV 91.3 (80-100) fL MCH 31.3 (25-34) pg MCHC 34.3 (32-36) g/dL RDW Std Deviation 46.0 (36.4-46.3) fL RDW Coeff of Pj 13.8 (11.5-14.5) % Plt Count 251 (130-400) K/uL MPV 9.7 (7.4-10.4) fL Immature Gran % (Auto) 0.5 % Neut % (Auto) 72.3 % Lymph % (Auto) 15.1 % Turner % (Auto) 11.0 % Eos % (Auto) 0.5 % Baso % (Auto) 0.6 % Immature Gran # (Auto) 0.05 H (0.00-0.02) K/uL Neut # (Auto) 7.98 H (1.4-6.5) K/uL Lymph # (Auto) 1.66 (1.2-3.4) K/uL Turner # (Auto) 1.21 H (0.11-0.59) K/uL Eos # (Auto) 0.05 (0-0.5) K/uL Baso # (Auto) 0.07 (0-0.2) K/uL PT 10.4 (9.0-12.0) Seconds INR 1.0 (0.9-1.1) APTT 31.0 (21.0-31.0) Seconds PTT Ratio 1.1 Sodium (136-145) mmol/L Potassium (3.5-5.1) mmol/L Chloride (98-107) mmol/L Carbon Dioxide (21-32) mmol/L Anion Gap (3-11) BUN (7-18) mg/dl Creatinine (0.6-1.4) mg/dl Est Cr Clr Drug Dosing ml/min Est GFR ( Amer) Est GFR (Non-Af Amer) BUN/Creatinine Ratio (10-20) Glucose (70-99) mg/dl Lactate (0.4-2.0) mmol/L Calcium (8.5-10.1) mg/dl Magnesium (1.8-2.4) mg/dl Total Bilirubin (0.2-1) mg/dl AST (15-37) U/L ALT (12-78) U/L Alkaline Phosphatase (45-117) U/L Troponin I (0-0.045) ng/ml Total Protein (6.4-8.2) gm/dl Albumin (3.4-5.0) gm/dl Globulin (2.5-4.0) gm/dl Albumin/Globulin Ratio (0.9-2) Procalcitonin (0-0.5) ng/ml Influenza Type A (PCR) Pos for Influ A A* (Neg) Influenza Type B (PCR) Neg for Influ B (Neg) 05/31/19 05/31/19 05/31/19 Range/Units 19:46 19:46 19:46 WBC (4.8-10.8) K/uL RBC (4.7-6.1) M/uL Hgb (14.0-18.0) g/dL Hct (42-52) % MCV (80-100) fL MCH (25-34) pg MCHC (32-36) g/dL RDW Std Deviation (36.4-46.3) fL RDW Coeff of Pj (11.5-14.5) % Plt Count (130-400) K/uL MPV (7.4-10.4) fL Immature Gran % (Auto) % Neut % (Auto) % Lymph % (Auto) % Turner % (Auto) % Eos % (Auto) % Baso % (Auto) % Immature Gran # (Auto) (0.00-0.02) K/uL Neut # (Auto) (1.4-6.5) K/uL Lymph # (Auto) (1.2-3.4) K/uL Turner # (Auto) (0.11-0.59) K/uL Eos # (Auto) (0-0.5) K/uL Baso # (Auto) (0-0.2) K/uL PT (9.0-12.0) Seconds INR (0.9-1.1) APTT (21.0-31.0) Seconds PTT Ratio Sodium 135 L (136-145) mmol/L Potassium 4.7 (3.5-5.1) mmol/L Chloride 105 (98-107) mmol/L Carbon Dioxide 23 (21-32) mmol/L Anion Gap 7.0 (3-11) BUN 39 H (7-18) mg/dl Creatinine 2.15 H (0.6-1.4) mg/dl Est Cr Clr Drug Dosing 31.8 ml/min Est GFR ( Amer) 32.5 Est GFR (Non-Af Amer) 28.1 BUN/Creatinine Ratio 18.1 (10-20) Glucose 95 (70-99) mg/dl Lactate 1.5 (0.4-2.0) mmol/L Calcium 9.0 (8.5-10.1) mg/dl Magnesium 1.7 L (1.8-2.4) mg/dl Total Bilirubin 0.4 (0.2-1) mg/dl AST 48 H (15-37) U/L ALT 23 (12-78) U/L Alkaline Phosphatase 103 (45-117) U/L Troponin I 0.098 H* (0-0.045) ng/ml Total Protein 8.2 (6.4-8.2) gm/dl Albumin 3.9 (3.4-5.0) gm/dl Globulin 4.3 H (2.5-4.0) gm/dl Albumin/Globulin Ratio 0.9 (0.9-2) Procalcitonin 0.09 (0-0.5) ng/ml Influenza Type A (PCR) (Neg) Influenza Type B (PCR) (Neg) Administered Medications Discontinued Medications Acetaminophen (Tylenol) 1,000 mg PO NOW STA Stop: 05/31/19 19:33 Last Admin: 05/31/19 19:50 Dose: 1,000 mg Documented by: [id number] Albuterol (Duoneb) 3 ml NEB NOW STA Stop: 05/31/19 19:33 Last Admin: 05/31/19 20:03 Dose: 3 ml Documented by: [id number] Albuterol (Combivent Respimat) 1 puffs INH QID [facility] Stop: 07/01/19 13:29 Last Admin: 06/03/19 08:28 Dose: 1 puffs Documented by: [id number] Admin: 06/02/19 20:40 Dose: 1 puffs Documented by: [id number] Admin: 06/02/19 18:23 Dose: 1 puffs Documented by: [id number] Admin: 06/02/19 12:43 Dose: 1 puffs Documented by: [id number] Admin: 06/02/19 08:54 Dose: 1 puffs Documented by: [id number] Admin: 06/01/19 20:45 Dose: 1 puffs Documented by: [id number] Admin: 06/01/19 17:22 Dose: 1 puffs Documented by: [id number] Admin: 06/01/19 14:35 Dose: 1 puffs Documented by: [id number] Aspirin (Ecotrin Ectab) 81 mg PO DAILY [facility] Stop: 07/01/19 08:59 Last Admin: 06/03/19 08:26 Dose: 81 mg Documented by: [id number] Admin: 06/02/19 08:55 Dose: 81 mg Documented by: [id number] Admin: 06/01/19 08:12 Dose: 81 mg Documented by: [id number] Clopidogrel Bisulfate (Plavix) 75 mg PO DAILY [facility] Stop: 07/01/19 08:59 Last Admin: 06/03/19 08:27 Dose: 75 mg Documented by: [id number] Admin: 06/02/19 08:56 Dose: 75 mg Documented by: [id number] Admin: 06/01/19 08:12 Dose: 75 mg Documented by: [id number] Ezetimibe (Zetia) 10 mg PO DAILY [facility] Stop: 07/01/19 08:59 Last Admin: 06/03/19 08:26 Dose: 10 mg Documented by: [id number] Admin: 06/02/19 08:55 Dose: 10 mg Documented by: [id number] Admin: 06/01/19 08:13 Dose: 10 mg Documented by: [id number] Guaifenesin (Mucinex) 600 mg PO Q12 [facility] Stop: 07/01/19 13:14 Last Admin: 06/03/19 08:26 Dose: 600 mg Documented by: [id number] Admin: 06/02/19 20:47 Dose: 600 mg Documented by: [id number] Admin: 06/02/19 08:55 Dose: 600 mg Documented by: [id number] Admin: 06/01/19 20:44 Dose: 600 mg Documented by: [id number] Admin: 06/01/19 14:35 Dose: 600 mg Documented by: [id number] Heparin Sodium (Porcine) (Heparin Sodium (Porcine)) 5,000 units SQ Q12 [facility] Stop: 07/01/19 08:59 Last Admin: 06/03/19 08:29 Dose: 5,000 units Documented by: [id number] Cosigned by: [id number] Admin: 06/02/19 20:45 Dose: 5,000 units Documented by: [id number] Cosigned by: [id number] Admin: 06/02/19 08:58 Dose: 5,000 units Documented by: [id number] Cosigned by: [id number] Admin: 06/01/19 20:44 Dose: 5,000 units Documented by: [id number] Cosigned by: [id number] Admin: 06/01/19 08:12 Dose: 5,000 units Documented by: [id number] Cosigned by: [id number] Lactated Ringer's (Lr) 500 mls @ 999 mls/hr IV .Q31M ONE Stop: 05/31/19 20:02 Last Infusion: 05/31/19 20:54 Dose: 0 mls/hr Documented by: [id number] Admin: 05/31/19 19:50 Dose: 999 mls/hr Documented by: [id number] Sodium Chloride (Nss 1000ml) 1,000 mls @ 999 mls/hr IV .Q1H1M ONE Stop: 05/31/19 21:58 Last Infusion: 05/31/19 22:18 Dose: 0 mls/hr Documented by: [id number] Admin: 05/31/19 21:10 Dose: 999 mls/hr Documented by: [id number] Vancomycin HCl 2,000 mg/ (Sodium Chloride) 540 mls @ 200 mls/hr IV NOW ONE Stop: 05/31/19 23:39 Last Infusion: 05/31/19 23:59 Dose: 0 mls/hr Documented by: [id number] Admin: 05/31/19 21:17 Dose: 200 mls/hr Documented by: [id number] Cefepime HCl (Maxipime) 2,000 mg in 20 mls @ 5 mls/min IV NOW STA; Protocol Stop: 05/31/19 21:01 Last Admin: 05/31/19 21:10 Dose: 5 mls/min Documented by: [id number] Cefepime HCl 2,000 mg/ Syringe 20 mls @ 5.5 mls/min IV Q12H [facility]; Protocol Stop: 06/08/19 08:59 Last Admin: 06/01/19 08:12 Dose: 5.5 mls/min Documented by: [id number] Methylprednisolone 30 mg/ (Syringe) 0.48 mls @ 1.5 mls/min IV Q12H [facility] Stop: 07/02/19 14:14 Last Admin: 06/03/19 03:22 Dose: 1.5 mls/min Documented by: [id number] Admin: 06/02/19 15:32 Dose: 1.5 mls/min Documented by: [id number] Insulin Aspart (Novolog Flexpen) 0 units SC ACHS [facility] Stop: 07/01/19 07:29 Last Admin: 06/03/19 08:36 Dose: 9 units Documented by: [id number] Cosigned by: [id number] Admin: 06/02/19 20:44 Dose: 7 units Documented by: [id number] Cosigned by: [id number] Admin: 06/02/19 18:22 Dose: 5 units Documented by: [id number] Cosigned by: [id number] Admin: 06/02/19 12:45 Dose: Not Given Documented by: [id number] Cosigned by: [id number] Admin: 06/02/19 09:01 Dose: Not Given Documented by: [id number] Admin: 06/01/19 20:43 Dose: Not Given Documented by: [id number] Cosigned by: [id number] Admin: 06/01/19 17:01 Dose: Not Given Documented by: [id number] Admin: 06/01/19 11:59 Dose: Not Given Documented by: [id number] Cosigned by: [id number] Admin: 06/01/19 08:11 Dose: Not Given Documented by: [id number] Cosigned by: [id number] Insulin Glargine (Lantus Solostar Pen) 10 units SQ HS [facility] Stop: 07/01/19 20:59 Last Admin: 06/01/19 20:46 Dose: 10 units Documented by: [id number] Cosigned by: [id number] Insulin Glargine (Lantus Solostar Pen) 22 units SQ HS [facility] Stop: 07/02/19 20:59 Last Admin: 06/02/19 20:40 Dose: 22 units Documented by: [id number] Cosigned by: [id number] Ketorolac Tromethamine (Toradol) 10 mg IV NOW ONE Stop: 05/31/19 21:00 Last Admin: 05/31/19 21:10 Dose: 10 mg Documented by: [id number] Levothyroxine Sodium (Synthroid) 25 mcg PO DAILYBB [facility] Stop: 07/01/19 06:29 Last Admin: 06/03/19 06:21 Dose: 25 mcg Documented by: [id number] Admin: 06/02/19 05:55 Dose: 25 mcg Documented by: [id number] Admin: 06/01/19 06:27 Dose: 25 mcg Documented by: [id number] Metoprolol Succinate (Toprol Xl) 25 mg PO BID [facility] Stop: 07/01/19 08:59 Last Admin: 06/03/19 08:27 Dose: 25 mg Documented by: [id number] Admin: 06/02/19 20:47 Dose: 25 mg Documented by: [id number] Admin: 06/02/19 08:56 Dose: 25 mg Documented by: [id number] Admin: 06/01/19 20:43 Dose: 25 mg Documented by: [id number] Admin: 06/01/19 08:13 Dose: 25 mg Documented by: [id number] Miscellaneous (Carbohydrates For Hypoglycemia) 15 - 30 gm PO UD PRN PRN Reason: Hypoglycemia Protocol Stop: 06/30/19 23:51 Last Admin: 06/02/19 07:15 Dose: 15 gm Documented by: [id number] Admin: 06/01/19 07:53 Dose: 15 gm Documented by: [id number] Oseltamivir Phosphate (Tamiflu) 75 mg PO NOW STA; Protocol Stop: 05/31/19 19:33 Last Admin: 05/31/19 19:50 Dose: 75 mg Documented by: [id number] Oseltamivir Phosphate (Tamiflu) 30 mg PO BID [facility]; Protocol Stop: 06/06/19 08:59 Last Admin: 06/03/19 08:27 Dose: 30 mg Documented by: [id number] Admin: 06/02/19 20:44 Dose: 30 mg Documented by: [id number] Admin: 06/02/19 08:56 Dose: 30 mg Documented by: [id number] Admin: 06/01/19 20:44 Dose: 30 mg Documented by: [id number] Admin: 06/01/19 08:12 Dose: 30 mg Documented by: [id number] Rosuvastatin Calcium (Crestor) 5 mg PO Q48H [facility] Stop: 07/01/19 08:59 Last Admin: 06/03/19 08:26 Dose: 5 mg Documented by: [id number] Admin: 06/01/19 08:12 Dose: 5 mg Documented by: [id number] Imaging Data Radiologist's Impression: Radiology results as stated below per my review and the radiologist's interpretation: XR chest 1V portable CLINICAL HISTORY: SEPSIS COMPARISON STUDY: 05/23/2018 FINDINGS: The heart remains enlarged. There is slight improvement in the previously described congestive failure/fluid overload. There is no lobar consolidation[. No pleural effusions are visualized. IMPRESSION: Cardiomegaly and slight improvement in the congestive failure/fluid overload pattern. No evidence of lobar consolidation ACT 112: Negative or not required by law. Electronically signed by: Xavier Carroll M.D. 05/31/2019 8:12 PM ECG Data Attestation: I personally reviewed and interpreted this ECG as follows: Indication: + weakness Rate (beats per minute): 120 Rhythm: sinus tachycardia ECG Intervals/blocks: + Right Bundle branch block ECG [place]: + Right axis deviation ECG ST segments: + Nonspecific ST abnormalities; no ST depression and no ST e levation Blood Pressure Blood Pressure Findings: Low blood pressure Discharge Plan Visit Data *Final* Discharge Date/Time: 05/31/19 23:05 Chief Complaint: Flu Like Symptoms Stated Complaint: FLU LIKE SYMPTOMS ED Provider: Hermes Ramon Discharge Problem: Hypoxia, Influenza A, Elevated troponin Patient Disposition: Admitted As Inpatient Discharge Instructions Interventions: ED Discharge Assessment Last Done: 05/31/19 23:05 The scribe's documentation has been prepared under my direction and personally reviewed by me in its entirety. I confirm that the note above accurately reflects all work, treatment, procedures, and medical decision making performed by me.
[2019-05-31 20:26] LABS: Albumin Globulin Ratio 0.9 (0.9-2); Bilirubin,Total 0.4 mg/dl (0.2-1); Globulin 4.3 gm/dl (2.5-4.0); Total Protein 8.2 gm/dl (6.4-8.2); Troponin I 0.098 ng/ml (0-0.045)
[2019-05-31] MEDS ORDERED: VANCOMYCIN CONSULT ACTIVE PRN ×2 (20:58→23:52)
[2019-05-31] MEDS ORDERED: SODIUM CHLORIDE 0.9% 1000ML 1,000 ML IV ONE (20:58)
[2019-05-31] MEDS ORDERED: VANCOMYCIN HCL 2,000 MG in SODIUM CHLORIDE 0.9% 500 ML IV ONE (20:58)
[2019-05-31] MEDS ORDERED: CEFEPIME 2,000 MG/20 ML VIAL IV STA (20:58)
[2019-05-31] MEDS ORDERED: KETOROLAC TROMETHAMINE 15 MG/ML VIAL IV ONE (20:59)
--- NOTE | 2019-05-31 23:37 | History & Physical Report ---
Date of Service May 31, 2019 Assessment & Plan (1) CAD, multiple vessel: Elevated troponin/non-STEMI/CAD- The patient will be admitted to telemetry for serial cardiac enzymes, serial EKG's, cardiac rhythm monitoring and a 2-D echocardiogram with Dopplers.. Continue aspirin 81 mg daily, metoprolol succinate 25 mg p.o. twice daily, clopidogrel 75 mg p.o. daily. Patient had element of relative hypotension while in the ED, with lowest blood pressure recorded 88/55. We will hold amlodipine, hydralazine and lisinopril. Continue IV fluid rehydration Monitor blood pressure and heart rate closely due to associated conditions of influenza A and pneumonia Present on Admission?: Yes (2) Non-ST elevation DE (NSTEMI): See above Present on Admission?: Yes (3) Elevated troponin: See above Present on Admission?: Yes (4) Hypoxia: Hypoxia, multifactorial- Right middle lobe pneumonia and influenza A, treated as below Present on Admission?: Yes (5) Right middle lobe pneumonia: Continue vancomycin IV and cefepime IV begun in the ED. Guaifenesin extended release 600 mg p.o. twice daily. Sputum Gram stain and culture. Duonebs every 4 hours while awake and every 2 hours when necessary. Present on Admission?: Yes (6) Influenza A: Tamiflu 75 mg p.o. twice daily x5 days, renally adjusted Present on Admission?: Yes (7) Hypercholesterolemia: Continue Zetia 10 mg p.o. daily, and rosuvastatin 5 mg p.o. every other day Check a fasting lipid panel Present on Admission?: Yes (8) Chronic kidney disease, stage III (moderate): CKD stage III/diabetic nephropathy- Creatinine 2.15 upon admission, with range 1.55-2.20. Follow serially Present on Admission?: Yes (9) Diabetic nephropathy: See above Present on Admission?: Yes (10) Diabetes: Hold glimepiride and linagliptin Reduce Lantus insulin from 22 units to 10 units subcu at bedtime. Check hemoglobin A1c. Place on Accu-Cheks before meals and at bedtime with NovoLog coverage for scale Present on Admission?: Yes (11) Hypothyroidism: Continue levothyroxine sodium 25 mcg daily Present on Admission?: Yes (12) Panic disorder without agoraphobia: Continue alprazolam Present on Admission?: Yes (13) Pulmonary nodule: Follow-up per guidelines as noted from CT on 04/07/2019 Present on Admission?: Yes History of Present Illness Chief Complaint: The patient presents to the emergency department with complaint of flulike symptoms began about 3 days prior to arrival. Primary Care Provider: Gene Calvo MD The patient is an 79-year-old male with a past medical history including pulmonary nodule, proteinuria, panic disorder without agoraphobia, male erectile disorder of organic origin, hyperkalemia, hypercholesterolemia, herpes zoster, enteritis, elevated PSA, edema, diverticulitis of colon, diabetic nephropathy, chronic kidney disease stage III, multivessel CAD, BPH with elevated PSA, AAA, anemia, NSTEMI, diabetes mellitus and hypothyroidism. The patient reports that his was diagnosed with influenza A 4 days ago, and he began develop symptoms 1 day after that. She is gotten of her symptoms relatively well, but he has developed significantly more shortness of breath and generalized symptoms of the flu. In addition, work-up emergency department revealed an elevated troponin and hypoxia with right middle lobe pneumonia. Allergies Allergy/AdvReac Type Severity Reaction Status Date / Time No Known Allergies Allergy Mild Unverified 05/31/19 21:03 Home Medications Home Medications Medication Instructions Recorded Confirmed Type aspirin 81 mg PO DAILY 05/23/18 05/31/19 History ezetimibe 10 mg PO DAILY 05/23/18 05/31/19 History glimepiride 4 mg PO BID 05/23/18 05/31/19 History metoprolol succinate 25 mg PO BID #60 tab 05/25/18 05/31/19 Rx nitroglycerin [Nitrostat] 0.4 mg SUBLINGUAL UD PRN #1 btl 05/25/18 05/31/19 Rx levothyroxine 25 mcg tablet 25 mcg PO DAILY #90 tab 10/11/18 05/31/19 Rx clopidogrel 75 mg tablet 75 mg PO DAILY #90 tab 01/07/19 05/31/19 Rx lisinopril 40 mg tablet 40 mg PO DAILY #90 tab 03/24/19 05/31/19 Rx alprazolam 0.5 mg tablet 0.5 mg PO DAILY #90 tab 04/13/19 05/31/19 Rx linagliptin 5 mg tablet 5 mg PO DAILY #90 tab 04/13/19 05/31/19 Rx amlodipine 10 mg tablet 10 mg PO HS #90 tab 05/16/19 05/31/19 Rx hydralazine 25 mg tablet 25 mg PO TID #60 tab 05/16/19 05/31/19 Rx insulin glargine 100 unit/mL (3 22 units SUBCUT HS ml 05/16/19 05/31/19 History mL) subcutaneous pen coenzyme Q10 [Co Q-10] 200 mg PO DAILY 05/31/19 05/31/19 History [id number] oil [Fish 1 cap PO DAILY 05/31/19 05/31/19 History Oil] rosuvastatin 5 mg PO Q2D 05/31/19 05/31/19 History Past Med/Surg History Surgical History H/O aortic aneurysm repair Stented coronary artery Family History Other COPD (chronic obstructive pulmonary disease) Diabetes mellitus type 1 Social History Preferred Language: [place] Communication Ability: Effective Hearing Ability: Normal Alloy Weigher Required: No Beliefs That Will Affect Care: None marital status: Current Living Situation: Spouse current occupation: Retired Feels Safe at Home: Yes Smoking Status: Former smoker Cigarettes Per Day: 20 ; Second Hand Exposure: No ; Hx Alcohol Use: No Hx Substance Use: No caffeine: Yes Seatbelt Use: always Sunscreen Use: No Review of Systems Review of Systems: The patient denies chest pain, palpitations, lower ext remity swelling, sore throat, diarrhea , constipation, abdominal pain, pelvic pain, blood in urine or stool, dysuria, urinary frequency or urgency, memory loss, loss of consciousness, rash, abnormal bruising or bleeding, imbalance, focal or generalized weakness, numbness or tingling in arms or legs, back or neck pain, or night sweats. The review of systems is otherwise negative other than for that already noted above, and at least 10 systems have been reviewed. Physical Exam Physical Exam: The patient is awake, alert and oriented 3, looks fatigued, normocephalic and atraumatic, lying in bed and in no acute distress. HEENT--PERRL, EOMI, mucous membranes and oropharynx dry. Neck--supple. No JVD. No bruits. Thyroid normal, trachea midline, no adenopathy. Heart--normal S1 and S2. No murmurs, rubs or gallops. Lungs--coarse breath sounds bilaterally. No respiratory distress, no accessory muscle use. Abdomen--normal bowel sounds and soft. Nontender. Nondistended. Extremities--no cyanosis or clubbing. No edema. Dermatologic--normal skin turgor, normal color, no abnormal lymph nodes, no rash. Neurologic--cranial nerves II through XII grossly intact. Rheumatologic--range of motion limited by muscular discomfort Psychiatric--normal affect. Results & Data Vital Signs (Past 12 Hours) Vital Signs Temp Pulse Pulse Pulse Resp BP Pulse Ox 05/31/19 23:00 74 18 99/57 L 95 05/31/19 22:45 78 22 89/59 L 95 05/31/19 22:30 74 25 H 88/55 L 94 05/31/19 22:15 86 26 H 92/60 L 95 05/31/19 22:00 90 29 H 90/57 L 94 05/31/19 21:55 86 27 H 99/62 L 95 05/31/19 21:50 91 H 22 93/61 L 95 05/31/19 21:45 90 24 101/57 L 92 05/31/19 21:40 93 H 20 98/58 L 95 05/31/19 21:35 97 H 25 H 91/59 L 96 05/31/19 21:30 97 H 24 96/64 L 95 05/31/19 21:25 103 H 19 109/72 93 05/31/19 21:20 101 H 22 102/64 93 05/31/19 21:15 99 H 23 97/57 L 93 05/31/19 21:10 100 H 24 88/56 L 92 05/31/19 21:07 101 H 25 H 99/71 L 91 05/31/19 21:05 98 H 29 H 88/63 L 93 05/31/19 21:00 101 H 24 87 L 05/31/19 20:59 101 H 27 H 93 05/31/19 20:56 101 H 19 95 05/31/19 20:50 102.6 F H 102 H 99 H 30 H 93 05/31/19 20:45 100 H 27 H 94 02/25/20 20:40 102 H 27 H 92 05/31/19 20:35 103 H 25 H 94 05/31/19 20:30 104 H 29 H 94 05/31/19 20:25 110 H 32 H 96 05/31/19 20:20 108 H 31 H 90 05/31/19 20:15 106 H 17 05/31/19 20:10 112 H 25 H 05/31/19 20:05 112 H 22 05/31/19 20:04 110 H 20 97 05/31/19 20:00 120 H 31 H 96 05/31/19 19:55 120 H 26 H 97 05/31/19 19:50 114 H 28 H 98 05/31/19 19:45 126 H 26 H 95 05/31/19 19:40 115 H 24 98 05/31/19 19:35 120 H 29 H 96 05/31/19 19:32 132 H 132 H 24 132 H 05/31/19 19:30 123 H 26 H 97 05/31/19 19:28 125 H 28 H 95 05/31/19 19:10 102.0 F H 129 H 18 164/86 H 87 L Laboratory Results Laboratory Results WBC 11.02 K/uL (4.8-10.8) H 05/31/19 19:46 RBC 4.82 M/uL (4.7-6.1) 05/31/19 19:46 Hgb 15.1 g/dL (14.0-18.0) 05/31/19 19:46 Hct 44.0 % (42-52) 05/31/19 19:46 MCV 91.3 fL (80-100) 05/31/19 19:46 MCH 31.3 pg (25-34) 05/31/19 19:46 MCHC 34.3 g/dL (32-36) 05/31/19 19:46 RDW Std Deviation 46.0 fL (36.4-46.3) 05/31/19 19:46 RDW Coeff of Pj 13.8 % (11.5-14.5) 05/31/19 19:46 Plt Count 251 K/uL (130-400) 05/31/19 19:46 MPV 9.7 fL (7.4-10.4) 05/31/19 19:46 Immature Gran % (Auto) 0.5 % 05/31/19 19:46 Neut % (Auto) 72.3 % 05/31/19 19:46 Lymph % (Auto) 15.1 % 05/31/19 19:46 [place] % (Auto) 11.0 % 05/31/19 19:46 Eos % (Auto) 0.5 % 05/31/19 19:46 Baso % (Auto) 0.6 % 05/31/19 19:46 Immature Gran # (Auto) 0.05 K/uL (0.00-0.02) H 05/31/19 19:46 Neut # (Auto) 7.98 K/uL (1.4-6.5) H 05/31/19 19:46 Lymph # (Auto) 1.66 K/uL (1.2-3.4) 05/31/19 19:46 [place] # (Auto) 1.21 K/uL (0.11-0.59) H 05/31/19 19:46 Eos # (Auto) 0.05 K/uL (0-0.5) 05/31/19 19:46 Baso # (Auto) 0.07 K/uL (0-0.2) 05/31/19 19:46 PT 10.4 Seconds (9.0-12.0) 05/31/19 19:46 INR 1.0 (0.9-1.1) 05/31/19 19:46 APTT 31.0 Seconds (21.0-31.0) 05/31/19 19:46 PTT Ratio 1.1 05/31/19 19:46 Sodium 135 mmol/L (136-145) L 05/31/19 19:46 Potassium 4.7 mmol/L (3.5-5.1) 05/31/19 19:46 Chloride 105 mmol/L (98-107) 05/31/19 19:46 Carbon Dioxide 23 mmol/L (21-32) 05/31/19 19:46 Anion Gap 7.0 (3-11) 05/31/19 19:46 BUN 39 mg/dl (7-18) H 05/31/19 19:46 Creatinine 2.15 mg/dl (0.6-1.4) H 05/31/19 19:46 Est Cr Clr Drug Dosing 31.8 ml/min 05/31/19 19:46 Est GFR ( Amer) 32.5 05/31/19 19:46 Est GFR (Non-Af Amer) 28.1 05/31/19 19:46 BUN/Creatinine Ratio 18.1 (10-20) 05/31/19 19:46 Glucose 95 mg/dl (70-99) 05/31/19 19:46 POC Glucose 88 mg/dl (70-99) 06/01/19 00:02 Lactate 1.5 mmol/L (0.4-2.0) 05/31/19 19:46 Calcium 9.0 mg/dl (8.5-10.1) 05/31/19 19:46 Magnesium 1.7 mg/dl (1.8-2.4) L 05/31/19 19:46 Total Bilirubin 0.4 mg/dl (0.2-1) 05/31/19 19:46 AST 48 U/L (15-37) H 05/31/19 19:46 ALT 23 U/L (12-78) 05/31/19 19:46 Alkaline Phosphatase 103 U/L (45-117) 05/31/19 19:46 Troponin I 0.185 ng/ml (0-0.045) H* 06/01/19 00:00 Total Protein 8.2 gm/dl (6.4-8.2) 05/31/19 19:46 Albumin 3.9 gm/dl (3.4-5.0) 05/31/19 19:46 Globulin 4.3 gm/dl (2.5-4.0) H 05/31/19 19:46 Albumin/Globulin Ratio 0.9 (0.9-2) 05/31/19 19:46 Triglycerides 103 mg/dl (0-150) 06/01/19 00:00 Cholesterol 77 mg/dl (0-200) 06/01/19 00:00 LDL Cholesterol, Calc 31 mg/dl 06/01/19 00:00 VLDL Cholesterol, Calc 21 mg/dl 06/01/19 00:00 HDL Cholesterol 25 mg/dl 06/01/19 00:00 Cholesterol/HDL Ratio 3 06/01/19 00:00 Procalcitonin 0.09 ng/ml (0-0.5) 05/31/19 19:46 Urine Color Yellow 06/01/19 00:00 Urine Appearance Clear (Clear) 06/01/19 00:00 Urine pH 5.0 (4.5-7.5) 06/01/19 00:00 Ur Specific [place] 1.013 (1.000-1.030) 06/01/19 00:00 Urine Protein 1+ (Negative) H 06/01/19 00:00 Urine Glucose (UA) Negative (Negative) 06/01/19 00:00 Urine Ketones Negative (Negative) 06/01/19 00:00 Urine Blood Negative (Negative) 06/01/19 00:00 Urine Nitrite Negative (Negative) 06/01/19 00:00 Urine Bilirubin Negative (Negative) 06/01/19 00:00 Urine Urobilinogen Negative (Negative) 06/01/19 00:00 Ur Leukocyte Esterase Negative (Negative) 06/01/19 00:00 Urine WBC (Auto) 0 /hpf (0-5) 06/01/19 00:00 Urine RBC (Auto) 0-4 /hpf (0-4) 06/01/19 00:00 U Hyaline Cast (Auto) 0 /lpf (0-5) 06/01/19 00:00 U Epithel Cells (Auto) 0-5 /lpf (0-5) 06/01/19 00:00 Urine Bacteria (Auto) Negative (Negative) 06/01/19 00:00 Influenza Type A (PCR) Pos for Influ A (Neg) A* 05/31/19 19:35 Influenza Type B (PCR) Neg for Influ B (Neg) 05/31/19 19:35 Diagnostic Findings [facility], [place] [phone] XRay Report Patient: KD AGARWAL EAdmit Date: 05/31/19 MR#: [id number]: [address] Acct ID:[id number]: Date: 1940[place] [facility] [place] [address] Age: 79Location: ED Sex: M Room/Bed: Att Phy:Diagnosis: FLU LIKE SYMPTOMS Ashlee Phy: Gene Calvo MDService Date: 05/31/19 Fam Phy:Interpreting Phy: Xavier Carroll MD Admit Phy: Ordering Phy: Hermes Ramon MD cc: ~ XR chest 1V portable CLINICAL HISTORY: SEPSIS COMPARISON STUDY: 05/23/2018 FINDINGS: The heart remains enlarged. There is slight improvement in the previously described congestive failure/fluid overload. There is no lobar consolidation[. No pleural effusions are visualized. IMPRESSION: Cardiomegaly and slight improvement in the congestive failure/fluid overload pattern. No evidence of lobar consolidation ACT 112: Negative or not required by law. Electronically signed by: Xavier Carroll M.D. 05/31/2019 8:12 PM Dictated: 05/31/192010 Transcribed: 05/31/192010 Code Status & VTE Plan Code Status Full code VTE Prophylaxis Plan VTE Prophylaxis will be ordered: Yes PG Care Time/CCT Total # of Minutes Spent Total Time Spent with Patient: Total time spent is greater than 50% in coordination of care (as documented) at patient's floor/unit and/or counseling patient: Coding Level of Care Code 22741 Initial Inpt Care Lvl 3 Diagnoses CAD, multiple vessel I25.10 Non-ST elevation DE (NSTEMI) I21.4 Elevated troponin R79.89 Hypoxia R09.02 Right middle lobe pneumonia J18.9 Influenza A J10.1 Hypercholesterolemia E78.00 Chronic kidney disease, stage III (moderate) N18.3 Diabetic nephropathy E11.21 Diabetes E11.22; N18.3; Z79.4 Diabetes mellitus type: type 2 Diabetes mellitus watermelon inspector insulin use: with chcf use Diabetes mellitus complication status: with kidney complications Diabetes mellitus complication detail: with chronic kidney disease Chronic kidney disease stage: stage 3 (moderate) Hypothyroidism E03.9 Hypothyroidism type: acquired Panic disorder without agoraphobia F41.0 Pulmonary nodule R91.1 (1) Diabetes Diabetes mellitus type: type 2 Diabetes mellitus chcf insulin use: with watermelon inspector use Diabetes mellitus complication status: with kidney complications Diabetes mellitus complication detail: with chronic kidney disease Chronic kidney disease stage: stage 3 (moderate) Qualified Code(s): E11.22 - Type 2 diabetes mellitus with diabetic chronic kidney disease; N18.3 - Chronic kidney disease, stage 3 (moderate); Z79.4 - detention (current) use of 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
[2019-05-31] MEDS ORDERED: ONDANSETRON INJ 2 MG/ML 2 ML VIAL IV PRN (23:52)
[2019-05-31] MEDS ORDERED: ACETAMINOPHEN 325 MG TAB PO PRN (23:52)
[2019-05-31] MEDS ORDERED: GLUCOSE 10 TABS/TUBE PO PRN (23:52)
[2019-05-31] MEDS ORDERED: ALPRAZolam 0.5 MG TABLET PO PRN (23:52)
[2019-05-31] MEDS ORDERED: GLUCAGON FOR INJ 1 MG VIAL SQ PRN (23:52)
[2019-05-31] MEDS ORDERED: NITROGLYCERIN SL 0.4 MG/TAB TAB SL PRN (23:52)
[2019-05-31] MEDS ORDERED: DEXTROSE 50% 50 ML SYRINGE IV PRN (23:52)
[2019-05-31] MEDS ORDERED: POLYETHYLENE (MIRALAX) 17 GM PACK PO PRN (23:52)
[2019-05-31] MEDS ORDERED: GLUCOSE 40% GEL 15 GM TUBE PO PRN (23:52)
[2019-05-31] MEDS ORDERED: ALUMINUM/MAGNESIUM SUSP 30 ML UDC PO PRN (23:52)
[2019-05-31] MEDS ORDERED: MAGNESIUM HYDROXIDE SUSP 30 ML UDC PO PRN (23:52)
[2019-06-01 00:31] LABS: Appearance Urine Clear (Clear); Bacteria Urine Automated Negative (Negative); Bilirubin Urine Negative (Negative); Blood Urine Negative (Negative); Cast Urine Automated 0 /lpf (0-5); Color Urine Yellow; Epithelial Cell Urine Auto 0-5 /lpf (0-5); Glucose Urine UA Negative (Negative); Ketones Urine Negative (Negative); Leukocyte Esterase Urine Negative (Negative); Nitrite Urine Negative (Negative); Protein Urine 1+ (Negative); RBC Urine Automated 0-4 /hpf (0-4); Specific Gravity Urine 1.013 (1.000-1.030); Urobilinogen Urine Negative (Negative); WBC Urine Automated 0 /hpf (0-5)
[2019-06-01 01:14] LABS: Troponin I 0.185 ng/ml (0-0.045)
[2019-06-01] MEDS: LEVOTHYROXINE SODIUM 25 MCG TABLET PO SCH (06:27)
[2019-06-01] MEDS: CARBOHYDRATES FOR HYPOGLYCEMIA PO PRN ×2 (07:53→08:33)
[2019-06-01] MEDS: INSULIN ASPART 100 UNITS/ML 3 ML PEN SC SCH ×4 (08:11→20:43)
[2019-06-01] MEDS: ASPIRIN 81 MG ECTAB PO SCH (08:12)
[2019-06-01] MEDS: HEPARIN SOD 5,000 UNIT/0.5 ML VIAL SQ SCH ×2 (08:12→20:44)
[2019-06-01] MEDS: OSELTAMIVIR PHOSPHATE SUSP 30 MG/5 ML UDP PO SCH ×2 (08:12→20:44)
[2019-06-01] MEDS: ROSUVASTATIN CALCIUM 5 MG TAB PO SCH (08:12)
[2019-06-01] MEDS: CLOPIDOGREL BISULFATE 75 MG TAB PO SCH (08:12)
[2019-06-01] MEDS: METOPROLOL SUCC 25MG EXT REL TAB PO SCH ×2 (08:13→20:43)
[2019-06-01] MEDS: EZETIMIBE 10 MG TABLET PO SCH (08:13)
[2019-06-01 08:18] LABS: Basophils # (auto) 0.06 K/uL (0-0.2); Basophils % (auto) 0.7 %; Eosinophils % (auto) 1.2 %; Hematocrit (blood only) 41.7 % (42-52); Hemoglobin 14.2 g/dL (14.0-18.0); Immature Granulocytes # (auto) 0.03 K/uL (0.00-0.02); Immature Granulocytes % (auto) 0.4 %; Lymphocytes # (auto) 1.63 K/uL (1.2-3.4); Lymphocytes % (auto) 20.1 %; Mean Corpuscular Hemoglobin 31.1 pg (25-34); Mean Corpuscular Hgb Conc 34.1 g/dL (32-36); Mean Corpuscular Volume 91.4 fL (80-100); Mean Platelet Volume 9.9 fL (7.4-10.4); Monocytes # (auto) 1.45 K/uL (0.11-0.59); Monocytes % (auto) 17.9 %; Neutrophils # (auto) 4.83 K/uL (1.4-6.5); Neutrophils % (auto) 59.7 %; Platelet Count 189 K/uL (130-400); RDW Standard Deviation 46.5 fL (36.4-46.3); Red Blood Count 4.56 M/uL (4.7-6.1)
[2019-06-01 08:55] LABS: Albumin Level 3.2 gm/dl (3.4-5.0); BUN Creatinine Ratio 19.5 (10-20); Calcium 8.3 mg/dl (8.5-10.1); Creatinine Clr Calc Pharmacy 40.6 ml/min; Est GFR (Non-African American) 36.2; Potassium 4.6 mmol/L (3.5-5.1)
[2019-06-01] MEDS ORDERED: CEFEPIME 2,000 MG in SYRINGE 7.5 ML IV SCH (09:00)
[2019-06-01 09:05] LABS: Albumin Globulin Ratio 0.8 (0.9-2); Bilirubin,Total 0.5 mg/dl (0.2-1); Globulin 3.8 gm/dl (2.5-4.0); Troponin I 0.152 ng/ml (0-0.045)
[2019-06-01 09:40] LABS: Estimated Average Glucose 192 mg/dl; Hemoglobin A1C 8.3 % (4.5-5.6)
--- NOTE | 2019-06-01 12:38 | XCELERA ---
[id number] \\[email or web address]_[email or web address]\[id number]
--- NOTE | 2019-06-01 12:57 | Hospitalist Progress Note ---
Date of Service June 01, 2019 Assessment & Plan (1) Acute respiratory failure with hypoxia: 2nd to influenza infection cxr w/o complicating pneumonia or CHF supportive care wean O2 off as tolerated (2) Influenza A: 5-day course of tamiflu supportive care repeat cxr today w/o pneumonia -- d/c broad-spectrum IV abx therapy I don't hear wheezing on exam however pt reporting several pulmonary symptoms thus, add mucinex BID add combivent qid add incentive spirometry (3) Elevated troponin: myocardial demand ischemia in setting of influenza infection and acute hypoxic resp failure no evidence of ACS can d/c cardiology consultation that was initially requested by admitting MD (4) Chronic kidney disease, stage III (moderate): BMP in am for stability (5) CAD, multiple vessel: noted cont asa, plavix, statin, metoprolol (6) Hypothyroidism: TSH earlier this month compensated cont synthroid (7) Type 2 diabetes mellitus with hypoglycemia: lantus dose lowered sulfonylurea on hold follow carefully (8) DVT prophylaxis: heparin 5000 BID will obtain PT eval ok to d/c tele and move to med/surg Admission and Anticipated Discharge Date Admission Date: May 31, 2019 Subjective patient feels better today had fevers since Thursday pm but no fever today mild cough but no dyspnea main complaint is that of several bouts of diarrhea despite such able to eat ok Review of Systems Constitutional: + fever and + fatigue; no anorexia Respiratory: no dyspnea and no dyspnea on exertion Cardiovascular: no chest pain Gastrointestinal: no abdominal pain Physical Exam Constitutional: well developed and well nourished; no acute distress ENMT: external ear and nose normal, oropharynx normal Respiratory: normal respiratory effort, lungs clear to auscultation Cardiovascular: Rate/Rhythm: regular rate and regular rhythm Heart Sounds: normal S1 and normal S2; no murmur Vessels: posterior tibial pulses present and dorsalis pedis pulses present; no JVD Extremities: no edema Gastrointestinal (Abdomen): normal bowel sounds, soft, nontender, no hepatosplenomegaly Psychiatric: A+Ox3, euthymic affect Results & Data ([facility]) Vital Signs (Past 12 Hours) Vital Signs Temp Pulse Pulse Resp BP Pulse Ox 06/01/19 11:35 36.7 C 69 22 124/79 93 06/01/19 08:28 69 06/01/19 08:20 36.8 C 82 22 143/82 H 90 06/01/19 04:09 36.9 C 72 18 128/78 Laboratory Results Laboratory Results - last 24 hr 06/01/19 06/01/19 06/01/19 07:49 07:50 07:56 WBC 8.10 RBC 4.56 L Hgb 14.2 Hct 41.7 L MCV 91.4 MCH 31.1 MCHC 34.1 RDW Std Deviation 46.5 H RDW Coeff of Pj 14.0 Plt Count 189 MPV 9.9 Immature Gran % (Auto) 0.4 Neut % (Auto) 59.7 Lymph % (Auto) 20.1 [place] % (Auto) 17.9 Eos % (Auto) 1.2 Baso % (Auto) 0.7 Immature Gran # (Auto) 0.03 H Neut # (Auto) 4.83 Lymph # (Auto) 1.63 Emanuel # (Auto) 1.45 H Eos # (Auto) 0.10 Baso # (Auto) 0.06 Sodium Potassium Chloride Carbon Dioxide Anion Gap BUN Creatinine Est Cr Clr Drug Dosing Est GFR ( Amer) Est GFR (Non-Af Amer) BUN/Creatinine Ratio Glucose POC Glucose 55 L* 55 L* Estimat Average Glucose Hemoglobin A1c Calcium Total Bilirubin AST ALT Alkaline Phosphatase Troponin I Total Protein Albumin Globulin Albumin/Globulin Ratio Nasal Screen MRSA (PCR) 06/01/19 06/01/19 06/01/19 07:56 07:56 08:08 WBC RBC Hgb Hct MCV MCH MCHC RDW Std Deviation RDW Coeff of Pj Plt Count MPV Immature Gran % (Auto) Neut % (Auto) Lymph % (Auto) Emanuel % (Auto) Eos % (Auto) Baso % (Auto) Immature Gran # (Auto) Neut # (Auto) Lymph # (Auto) Emanuel # (Auto) Eos # (Auto) Baso # (Auto) Sodium 139 Potassium 4.6 Chloride 111 H Carbon Dioxide 22 Anion Gap 6.0 BUN 34 H Creatinine 1.74 H D Est Cr Clr Drug Dosing 40.6 Est GFR ( Amer) 42.0 Est GFR (Non-Af Amer) 36.2 BUN/Creatinine Ratio 19.5 Glucose 57 L POC Glucose 63 L* Estimat Average Glucose 192 Hemoglobin A1c 8.3 H Calcium 8.3 L Total Bilirubin 0.5 AST 47 H ALT 23 Alkaline Phosphatase 85 Troponin I 0.152 H* Total Protein 7.0 Albumin 3.2 L Globulin 3.8 Albumin/Globulin Ratio 0.8 L Nasal Screen MRSA (PCR) 06/01/19 06/01/19 06/01/19 08:09 08:32 10:15 WBC RBC Hgb Hct MCV MCH MCHC RDW Std Deviation RDW Coeff of Pj Plt Count MPV Immature Gran % (Auto) Neut % (Auto) Lymph % (Auto) Emanuel % (Auto) Eos % (Auto) Baso % (Auto) Immature Gran # (Auto) Neut # (Auto) Lymph # (Auto) Emanuel # (Auto) Eos # (Auto) Baso # (Auto) Sodium Potassium Chloride Carbon Dioxide Anion Gap BUN Creatinine Est Cr Clr Drug Dosing Est GFR ( Amer) Est GFR (Non-Af Amer) BUN/Creatinine Ratio Glucose POC Glucose 64 L* 100 H Estimat Average Glucose Hemoglobin A1c Calcium Total Bilirubin AST ALT Alkaline Phosphatase Troponin I Total Protein Albumin Globulin Albumin/Globulin Ratio Nasal Screen MRSA (PCR) Negative 06/01/19 06/01/19 06/01/19 10:49 15:56 16:29 WBC RBC Hgb Hct MCV MCH MCHC RDW Std Deviation RDW Coeff of Pj Plt Count MPV Immature Gran % (Auto) Neut % (Auto) Lymph % (Auto) Emanuel % (Auto) Eos % (Auto) Baso % (Auto) Immature Gran # (Auto) Neut # (Auto) Lymph # (Auto) Emanuel # (Auto) Eos # (Auto) Baso # (Auto) Sodium Potassium Chloride Carbon Dioxide Anion Gap BUN Creatinine Est Cr Clr Drug Dosing Est GFR ( Amer) Est GFR (Non-Af Amer) BUN/Creatinine Ratio Glucose POC Glucose 126 H 92 Estimat Average Glucose Hemoglobin A1c Calcium Total Bilirubin AST ALT Alkaline Phosphatase Troponin I 0.096 H* Total Protein Albumin Globulin Albumin/Globulin Ratio Nasal Screen MRSA (PCR) 06/01/19 20:37 WBC RBC Hgb Hct MCV MCH MCHC RDW Std Deviation RDW Coeff of Pj Plt Count MPV Immature Gran % (Auto) Neut % (Auto) Lymph % (Auto) [place]manuel % (Auto) Eos % (Auto) Baso % (Auto) Immature Gran # (Auto) Neut # (Auto) Lymph # (Auto) Emanuel # (Auto) Eos # (Auto) Baso # (Auto) Sodium Potassium Chloride Carbon Dioxide Anion Gap BUN Creatinine Est Cr Clr Drug Dosing Est GFR ( Amer) Est GFR (Non-Af Amer) BUN/Creatinine Ratio Glucose POC Glucose 89 Estimat Average Glucose Hemoglobin A1c Calcium Total Bilirubin AST ALT Alkaline Phosphatase Troponin I Total Protein Albumin Globulin Albumin/Globulin Ratio Nasal Screen MRSA (PCR) PG Care Time/CCT Total # of Minutes Spent Total Time Spent with Patient: Total time spent is greater than 50% in coordination of care (as documented) at patient's floor/unit and/or counseling patient: Coding Level of Care Code 19296 Subseq Hosp Care Lvl 2 Diagnoses Acute respiratory failure with hypoxia J96.01 Influenza A J10.1 Elevated troponin R79.89 Chronic kidney disease, stage III (moderate) N18.3 CAD, multiple vessel I25.10 Hypothyroidism E03.9 Hypothyroidism type: acquired Type 2 diabetes mellitus with hypoglycemia E11.649 DVT prophylaxis Z29.9 (1) Hypothyroidism Hypothyroidism type: acquired Qualified Code(s): E03.9 - Hypothyroidism, unspecified
[2019-06-01] MEDS: IPRATROPIUM BROMIDE/ALBUTEROL respimat INH INH SCH ×3 (14:35→20:45)
[2019-06-01] MEDS: guaiFENesin 600 MG TABCR PO SCH ×2 (14:35→20:44)
--- NOTE | 2019-06-01 14:52 | XRay Report ---
XR chest 2V PA/lateral HISTORY: 79 years-old Male influenza; eval for pneumonia acute shortness of breath with possible pne umonia COMPARISON: Chest radiograph 05/31/2019, chest CT 04/07/2019 TECHNIQUE: PA and lateral views of the chest FINDINGS: Cardiomegaly, unchanged. Calcified plaque of the thoracic aortic arch. Probable coronary artery stent . Moderate emphysema with chronic interstitial coarsening. Moderately improved aeration of the lungs with persistent pulmonary vascular congestion. No pneumothorax, large pleural effusion or new airspac e consolidation. Partially imaged IVC filter. Degenerative changes of the shoulders and spine. IMPRESSION: 1. Cardiomegaly and pulmonary vascular congestion with moderately improved aeration of the lungs. 2. Emphysema with chronic interstitial coarsening. 3. No definite airspace consolidation typical for pneumonia. ACT 112: Negative or not required by law. The above report was generated using voice recognition software. It may contain grammatical, syntax o r spelling errors. Electronically signed by: Robert Mary M.D. 06/01/2019 2:51 PM
--- NOTE | 2019-06-01 14:53 | Electrocardiogram Report ---
Test Reason : Blood Pressure : / mmHG Vent. Rate : 120 BPM Atrial Rate : 120 BPM P-R Int : 162 ms QRS Dur : 130 ms QT Int : 340 ms P-R-T Axes : 021 269 050 degrees QTc Int : 480 ms Poor data quality, interpretation may be adversely affected Sinus tachycardia Right bundle branch block Abnormal ECG When compared with ECG of 23-MAY-2018 11:27, Right bundle branch block is now Present Criteria for Anterior infarct are no longer Present Confirmed by Gene Lu ([id number]) on 06/01/2019 2:52:37 PM Referred By: REFERRED SELF Confirmed By:Jose Lu
--- NOTE | 2019-06-01 14:58 | Electrocardiogram Report ---
Test Reason : Blood Pressure : / mmHG Vent. Rate : 075 BPM Atrial Rate : 075 BPM P-R Int : 188 ms QRS Dur : 140 ms QT Int : 436 ms P-R-T Axes : 057 -83 021 degrees QTc Int : 486 ms Normal sinus rhythm Right bundle branch block Left anterior fascicular block Bifascicular block Abnormal ECG When compared with ECG of 31-MAY-2019 19:32, (unconfirmed) Vent. rate has decreased BY 45 BPM T wave inversion no longer evident in Anterior leads Confirmed by Gene Lu ([id number]) on 06/01/2019 2:57:30 PM Referred By: REFERRED SELF Confirmed By:Jose Lu
[2019-06-01] MEDS ORDERED: VANCOMYCIN HCL 1,500 MG in SODIUM CHLORIDE 0.9% 500 ML IV SCH (20:00)
[2019-06-01] MEDS ORDERED: INSULIN GLARGINE SOLOSTAR 100 UNITS/ML 3 ML PEN SQ SCH (21:00)
[2019-06-02] MEDS: LEVOTHYROXINE SODIUM 25 MCG TABLET PO SCH (05:55)
[2019-06-02 07:01] LABS: BUN Creatinine Ratio 17.4 (10-20); Calcium 8.2 mg/dl (8.5-10.1); Est GFR (African American) 47.5; Potassium 4.3 mmol/L (3.5-5.1)
[2019-06-02] MEDS: CARBOHYDRATES FOR HYPOGLYCEMIA PO PRN (07:15)
[2019-06-02] MEDS: IPRATROPIUM BROMIDE/ALBUTEROL respimat INH INH SCH ×4 (08:54→20:40)
[2019-06-02] MEDS: guaiFENesin 600 MG TABCR PO SCH ×2 (08:55→20:47)
[2019-06-02] MEDS: ASPIRIN 81 MG ECTAB PO SCH (08:55)
[2019-06-02] MEDS: EZETIMIBE 10 MG TABLET PO SCH (08:55)
[2019-06-02] MEDS: CLOPIDOGREL BISULFATE 75 MG TAB PO SCH (08:56)
[2019-06-02] MEDS: OSELTAMIVIR PHOSPHATE SUSP 30 MG/5 ML UDP PO SCH ×2 (08:56→20:44)
[2019-06-02] MEDS: METOPROLOL SUCC 25MG EXT REL TAB PO SCH ×2 (08:56→20:47)
[2019-06-02] MEDS: HEPARIN SOD 5,000 UNIT/0.5 ML VIAL SQ SCH ×2 (08:58→20:45)
[2019-06-02] MEDS: INSULIN ASPART 100 UNITS/ML 3 ML PEN SC SCH ×4 (09:01→20:44)
[2019-06-02] MEDS: methylPREDNISolone 30 MG in SYRINGE 0 ML IV SCH (15:32)
--- NOTE | 2019-06-02 20:14 | Hospitalist Progress Note ---
Date of Service June 02, 2019 Assessment & Plan (1) Acute respiratory failure with hypoxia: 2nd to influenza infection cxr w/o complicating pneumonia or CHF supportive care o2 has been weaned off at rest but apparently he desatted with walking today see below in "flu A" (2) Influenza A: 5-day course of tamiflu; day 2-3/5 overall improving but has reactive bronchitis in face of fluA infection no prior h/o asthma or COPD but x-rays show emphysematous changes will treat bronchitis with steroids - start IV solumedrol cont combivent cont incentive mary and supportive care (3) Elevated troponin: myocardial demand ischemia in setting of influenza infection and acute hypoxic resp failure no evidence of ACS (4) Chronic kidney disease, stage III (moderate): BMP stable again today (5) CAD, multiple vessel: noted no ischemic symptoms pre-hospital or during the stay cont asa, plavix, statin, metoprolol (6) Hypothyroidism: TSH earlier this month compensated cont synthroid (7) Type 2 diabetes mellitus with hypoglycemia: hypoglycemia - likely due to sulfonylurea; this is on hold BSGs to climb with steroids -- thus, re-start the lantus 22 units HS cont novolog correction/carb coverage (8) DVT prophylaxis: heparin 5000 BID cleared for home by PT hopefully d/c home tomorrow on Thursday Admission and Anticipated Discharge Date Admission Date: May 31, 2019 Anticipated date of discharge: 06/03/19 Subjective pt cont with cough/wheezing but denies any dyspnea or EPSTEIN. he overall feels good. appetite is good. diarrhea improved. staff noted that he desatted, however, during his walk today. was hopeful for going home today. had hypoglycemia again this am. Review of Systems Constitutional: no fever, no chills, no body aches, no fatigue and no anorexia Respiratory: + cough; no hemoptysis Cardiovascular: no chest pain Gastrointestinal: no abdominal pain Physical Exam Constitutional: well developed and well nourished; no acute distress ENMT: external ear and nose normal, oropharynx normal Respiratory: no respiratory distress Auscultation: + wheezes (b/l, mild); no crackles Cardiovascular: Rate/Rhythm: regular rate and regular rhythm Heart Sounds: normal S1 and normal S2; no murmur Vessels: posterior tibial pulses present and dorsalis pedis pulses present; no JVD Extremities: no edema Gastrointestinal (Abdomen): normal bowel sounds, soft, nontender, no hepatosplenomegaly Psychiatric: A+Ox3, euthymic affect Results & Data ([facility]) Vital Signs (Past 12 Hours) Vital Signs Temp Pulse Resp BP Pulse Ox 06/02/19 15:05 36.9 C 81 20 146/76 H 94 06/02/19 13:06 89 L Laboratory Results Laboratory Results - last 24 hr 06/01/19 06/02/19 06/02/19 20:37 05:40 07:12 Sodium 138 Potassium 4.3 Chloride 111 H Carbon Dioxide 21 Anion Gap 6.0 BUN 27 H Creatinine 1.57 H Est Cr Clr Drug Dosing 45.0 Est GFR ( Amer) 47.5 Est GFR (Non-Af Amer) 41.0 BUN/Creatinine Ratio 17.4 Glucose 51 L* POC Glucose 89 65 L* Calcium 8.2 L 06/02/19 06/02/19 06/02/19 07:16 07:28 11:46 Sodium Potassium Chloride Carbon Dioxide Anion Gap BUN Creatinine Est Cr Clr Drug Dosing Est GFR ( Amer) Est GFR (Non-Af Amer) BUN/Creatinine Ratio Glucose POC Glucose 68 L* 96 149 H Calcium 06/02/19 06/02/19 16:15 20:04 Sodium Potassium Chloride Carbon Dioxide Anion Gap BUN Creatinine Est Cr Clr Drug Dosing Est GFR ( Amer) Est GFR (Non-Af Amer) BUN/Creatinine Ratio Glucose POC Glucose 168 H 290 H Calcium PG Care Time/CCT Total # of Minutes Spent Total Time Spent with Patient: Total time spent is greater than 50% in coordination of care (as documented) at patient's floor/unit and/or counseling patient: Coding Level of Care Code 85530 Subseq Hosp Care Lvl 2 Diagnoses Acute respiratory failure with hypoxia J96.01 Influenza A J10.1 Elevated troponin R79.89 Chronic kidney disease, stage III (moderate) N18.3 CAD, multiple vessel I25.10 Hypothyroidism E03.9 Hypothyroidism type: acquired Type 2 diabetes mellitus with hypoglycemia E11.649 DVT prophylaxis Z29.9 (1) Hypothyroidism Hypothyroidism type: acquired Qualified Code(s): E03.9 - Hypothyroidism, unspecified
[2019-06-02] MEDS ORDERED: INSULIN GLARGINE SOLOSTAR 100 UNITS/ML 3 ML PEN SQ SCH (21:00)
[2019-06-03] MEDS: methylPREDNISolone 30 MG in SYRINGE 0 ML IV SCH (03:22)
[2019-06-03] MEDS: LEVOTHYROXINE SODIUM 25 MCG TABLET PO SCH (06:21)
[2019-06-03 07:17] LABS: BUN Creatinine Ratio 17.6 (10-20); Creatinine Clr Calc Pharmacy 39.5 ml/min; Est GFR (African American) 40.6
[2019-06-03] MEDS: ROSUVASTATIN CALCIUM 5 MG TAB PO SCH (08:26)
[2019-06-03] MEDS: EZETIMIBE 10 MG TABLET PO SCH (08:26)
[2019-06-03] MEDS: guaiFENesin 600 MG TABCR PO SCH (08:26)
[2019-06-03] MEDS: ASPIRIN 81 MG ECTAB PO SCH (08:26)
[2019-06-03] MEDS: OSELTAMIVIR PHOSPHATE SUSP 30 MG/5 ML UDP PO SCH (08:27)
[2019-06-03] MEDS: CLOPIDOGREL BISULFATE 75 MG TAB PO SCH (08:27)
[2019-06-03] MEDS: METOPROLOL SUCC 25MG EXT REL TAB PO SCH (08:27)
[2019-06-03] MEDS: IPRATROPIUM BROMIDE/ALBUTEROL respimat INH INH SCH (08:28)
[2019-06-03] MEDS: HEPARIN SOD 5,000 UNIT/0.5 ML VIAL SQ SCH (08:29)
[2019-06-03] MEDS: INSULIN ASPART 100 UNITS/ML 3 ML PEN SC SCH (08:36)
--- NOTE | 2019-06-03 10:58 | Discharge Summary ---
Date of Service date of admission - May 31, 2019 date of discharge - June 03, 2019 Admission HPI Per Admitting Provider The patient is an 79-year-old male with a past medical history including pulmonary nodule, proteinuria, panic disorder without agoraphobia, male erectile disorder of organic origin, hyperkalemia, hypercholesterolemia, herpes zoster, enteritis, elevated PSA, edema, diverticulitis of colon, diabetic nephropathy, chronic kidney disease stage III, multivessel CAD, BPH with elevated PSA, AAA, anemia, NSTEMI, diabetes mellitus and hypothyroidism. The patient reports that his was diagnosed with influenza A 4 days ago, and he began develop symptoms 1 day after that. She is gotten of her symptoms relatively well, but he has developed significantly more shortness of breath and generalized symptoms of the flu. In addition, work-up emergency department revealed an elevated troponin and hypoxia. Principal Diagnosis influenza type A infection Discharge Exam Constitutional well developed and well nourished; no acute distress ENMT external ear and nose normal, oropharynx normal Respiratory no respiratory distress Auscultation: + wheezes (b/l, mild); no crackles Cardiovascular Rate/Rhythm: regular rate and regular rhythm Heart Sounds: normal S1 and normal S2; no murmur Vessels: posterior tibial pulses present and dorsalis pedis pulses present; no JVD Extremities: no edema Gastrointestinal (Abdomen) normal bowel sounds, soft, nontender, no hepatosplenomegaly Psychiatric A+Ox3, euthymic affect Discharge Data Allergies Allergy/AdvReac Type Severity Reaction Status Date / Time Aadpyrh-Dkf-Mcc Reductase Allergy Unknown Verified 06/07/19 13:50 Inhibitor Consultations PT, OT assistant health educator Hospital Course (1) Acute respiratory failure with hypoxia: 2nd to influenza infection. cxr w/o complicating pneumonia or CHF (at ER presentation there was some concern for a right-sided pneumonia however subsequent x-rays failed to reveal such). Received tamiflu, oxygen, and supportive care. o2 was weaned off and o2 sats were normal in room air at time of discharge. (2) Influenza A: Received 3 days of tamiflu while hospitalized. Will complete 2 additional days of tamiflu post-discharge. Patient had reactive bronchitis in the face of his fluA infection. He has no prior h/o asthma or COPD but x-rays show emphysematous changes. Bronchitis was treated with IV steroids and he was transitioned to PO prednisone at discharge for 4 additional days. He was given a combivent inhaler to use as well. (3) Elevated troponin: Peak troponin 0.185. This was likely myocardial demand ischemia in setting of influenza infection and acute hypoxic resp failure. no evidence of ACS while hospitalized. (4) Chronic kidney disease, stage III (moderate): Cr at discharge 1.79 - near his baseline. I recommended he HOLD his lisinopril at discharge. Advise repeat BMP post-discharge to ensure stability of creatinine. (5) CAD, multiple vessel: no ischemic symptoms pre-hospital or during the stay cont asa, plavix, statin, metoprolol (6) Hypothyroidism: TSH 05/2019 compensated cont synthroid (7) Type 2 diabetes mellitus with hypoglycemia: hypoglycemia likely due to sulfonylurea use. He also takes lantus 22 units HS. Due to prednisone use after discharge I recommended he continue both his lantus and glimipiride for now. HOWEVER, given his CKD, I recommended that he speak with his PCP about whether he should ultimately stop the sulfonylurea and transition to another agent or just insulin alone. Total Time Total Time Spent Total Time Spent (In Minutes): 35 Total Time Includes: Examination of the Patient, Discharge Planning and Medication Reconciliation Discharge Plan Discharge Items Patient Disposition: Home - Self-Care Reason For Visit: INFLUENZA A Infection Discharge Diagnosis: 1. Flu A infection - improving 2. Bronchitis due to the Flu - improving; no evidence of pneumonia on multiple x-rays Activity: As commented below Activity Comment: gradually increase activities over the next 3-5 days Non-emergency contact: Primary Care Provider Call non-emergency contact if: you have any medication questions, your symptoms worsen and you have a fever Follow-up/Referrals: Pietro Calvo MD [Primary Care Provider] - 06/07/19 2:00 pm (Your appointment is with Dr Calvo's Nurse Practioner, Milly Zhou. If you need to change this appointment. please call [phone].) Diet: Carb Consistent or DM2 and Heart Healthy Addtl Attending Provider Instructions: You were treated for influenza type A infection. Initially there was also concern for pneumonia but multiple chest x-rays failed to show such. You improved over time with tamiflu (medication for the flu itself), IV fluids, breathing treatments, and some steroids. Your fevers resolved and your oxygen was weaned off. Your oxygen levels on day of discharge are normal both at rest and with activity. I would recommend that you wear a mask for another 48 hours only if you go out into the public. After that the mask can be discontinued. If people visit your home over the next 2 days it will be best for them to wear a mask while visiting you. By the end of Thursday you are likely not contagious to others. Recommendations: 1. take tamiflu (oseltamivir) 5ml twice daily for 4 more doses. Start this TONIGHT. This is your medication for the flu bug itself. 2. take prednisone 40mg once daily with food for 4 days. Start this TOMORROW. This is for your bronchitis. 3. take combivent inhaler 1 puff FOUR times a day for the next 5-7 days for your cough. You can gradually wean off the inhaler if you are feeling well. 4. STOP your lisinopril for now. Dr Calvo can tell you when you can go back to taking it. 5. Diabetes - * continue all of your usual medications including your insulin * your sugars likely will run high over the next 5 days because of the prednisone * please check your sugars AT LEAST twice a day (morning, evening) * really watch your diet carefully for the next week since your sugars will likely run higher than normal on the prednisone * over the next few weeks, especially once you are off the prednisone, if YOU HAVE LOW BLOOD SUGAR (LESS THAN 70) please let Dr Calvo know as he may need to adjust your medication * the glimipiride that you take twice daily can cause LOWS and this medication may need to be STOPPED * please stay in close contact with Dr Calvo about your diabetes Follow-up - see separate section Return to [facility] if - * you develop recurrent fevers over 100.5 degrees * you have worsening shortness of breath * you have persistently high blood sugars (300-350 or higher) * you have persistently low blood sugars (less than 70) * any other concerns Pending Studies at Discharge: No Stand-Alone Forms: [facility], Smoking Cessation Medications and DC Order Prescriptions: New Combivent Respimat 20-100 mcg/actuation Mist 1 puff inhalation QID PRN (Reason: cough, wheezing) Qty: 1 RF: 0 Continued clopidogrel 75 mg tablet 75 mg PO DAILY Qty: 90 RF: 1 linagliptin 5 mg tablet 5 mg PO DAILY Qty: 90 RF: 3 alprazolam 0.5 mg tablet 0.5 mg PO DAILY Qty: 90 RF: 1 levothyroxine 25 mcg tablet 25 mcg PO DAILY Qty: 90 RF: 3 amlodipine 10 mg tablet 10 mg PO HS Qty: 90 RF: 1 hydralazine 25 mg tablet 25 mg PO TID Qty: 60 RF: 4 insulin glargine 100 unit/mL (3 mL) insulin pen 22 units subcut HS RF: 0 rosuvastatin 5 mg tablet 5 mg PO Q2D RF: 0 coenzyme Q10 [Co Q-10] 200 mg Capsule 200 mg PO DAILY RF: 0 aspirin 81 mg tablet,delayed release (DR/EC) 81 mg PO DAILY RF: 0 glimepiride 4 mg tablet 4 mg PO BID RF: 0 ezetimibe 10 mg tablet 10 mg PO DAILY RF: 0 metoprolol succinate 25 mg Tablet Extended Release 24 Hr 25 mg PO BID Qty: 60 RF: 3 nitroglycerin [Nitrostat] 0.4 mg Tablet, Sublingual 0.4 mg Sublingual UD PRN (Reason: chest pain) Qty: 1 RF: 4 Discontinued lisinopril 40 mg tablet 40 mg PO DAILY Qty: 90 RF: 2 No Action lisinopril 40 mg tablet 40 mg PO DAILY Qty: 90 RF: 3 hydrochlorothiazide 12.5 mg tablet 12.5 mg PO DAILY RF: 0 Discharge Orders: Discharge Order (Routine); Ordered 06/03/19 Ordered By: Franky Worley Admission Data Admit Date/Time: 05/31/19 21:41 Attending Provider: Franky Worley Admit Provider: Keith Enamorado Primary Care Provider: Pietro Calvo Other Providers: Keith Enamorado Other Interventions: Discharge Summary Assessment (RN) Last Done: 06/03/19 10:58 DC Date/Time DO NOT enter until pt leaves facility: 06/03/19 12:25 Coding Level of Care Code D/C Day Management >30 mins Diagnoses Acute respiratory failure with hypoxia J96.01 Influenza A J10.1 Elevated troponin R79.89 Chronic kidney disease, stage III (moderate) N18.3 CAD, multiple vessel I25.10 Hypothyroidism E03.9 Hypothyroidism type: acquired Type 2 diabetes mellitus with hypoglycemia E11.649
== END 2019-06-03 12:25 | disposition home or self-care (01) | DRG 871 ==
LOC: ED 18:44 → 2S 21:41 → SUATTDRO 21:41 → 2S 23:05 → 4W 06-01 19:02

== ENCOUNTER 2020-03-15 22:19 | Inpatient (IN) ==
--- NOTE | 2020-03-15 22:34 | Emergency Department Note ---
Impression & Plan Third degree heart block, CHF (congestive heart failure), Acute respiratory failure with hypoxemia ED Provider Note NAME: KD AGARWAL AGE: 80 SEX: M : 1940 ARRIVES VIA: Walk-In INFORMANT: Patient, ED PROVIDER(S): Kedar Bolanos MD Chief Complaint: Shortness of breath HPI: Patient does present with concern for shortness of breath is been ongoing since Thursday. Patient believes it is gotten progressively worse. The patient does complain of some associated chest/back tightness. The patient has noticed some increasing lower extremity swelling. The patient denies any cough, fevers, or chills. The patient denies any known Covid contacts or loss of taste or smell. The patient has not taken anything at home for his symptoms. The patient is a former smoker. The patient does see Dr. Dubois and states he is compliant with his medications. Patient does have a prior history of CAD and does have a history of 3 stents. It does not still feel similar to when he has required stents. Of note, today is the patient's birthday. ROS: See HPI for pertinent positives and negatives. A total of 10 systems were reviewed and otherwise negative. Past medical history: See below Surgical history: See below Social history: See below Physical Exam: GENERAL: Moderate distress, nasal cannula in place. EYE EXAM: Normal conjunctiva. PERRL, no anisocoria and EOM's grossly intact w/o pain. NECK: Supple, no nuchal rigidity, no adenopathy, non-tender. No signs of meningismus. LUNGS: Crackles throughout. Normal chest wall mechanics. HEART: Bradycardic, no MRG. ABDOMEN: Abdomen soft, non-tender, normo-active bowel sounds, no masses, no rebound or guarding. BACK: No CVA TTP. SKIN: No rashes and no bruising. UPPER EXTREMITIES: Upper extremities are grossly normal. LOWER EXTREMITIES: Grossly normal, 2+ bilateral lower edema. NEURO EXAM: A&O x3, cranial nerves II-XII grossly intact, normal speech, moves all 4 extremities on command w/o issue. Differential diagnoses: Reactive airway disease, pneumonia, pneumothorax, COPD, CHF, infections, cardiac ischemia, pulmonary embolism, musculoskeletal, gastrointestinal, as well as other pathologies. Course: Patient was seen and evaluated the bedside. Full history physical exam was performed. EKG: Indication: Shortness of breath Likely ventricular escape rhythm, ventricular rate 35, wide QRS, P waves are seen but not correlated with QRS, likely third-degree heart block. Imaging Studies: 1 view chest x-ray Likely chronic emphysematous change with pulmonary edema. No obvious pneumothorax. Cardiac monitoring: An order was placed for continuous cardiac monitoring. The monitor shows a rate of 35 with idioventricular rhythm. MDM: Patient did present with concern of bradycardia and hypoxia. The patient was started on supplemental oxygen. Atropine was attempted but with no improvement. Bedside [id number] ultrasound did show decreased ventricular movement compared to the atria. No obvious pericardial effusion. Patient did have B- lines throughout bilateral lung alfonso. The patient was ordered Lasix, blood work, imaging and EKG. EKG did show likely third-degree heart block. Given this I did speak with the on-call end user consultant Dr. May who did review the patient's EKGs and stated patient given his heart failure and associated heart block likely would need a temporary pacemaker. I did speak with Dr. Woo and initiated a heart alert after discussing the case with him as the patient would benefit from the temporary pacemaker. Patient does have a positive troponin elevated BNP and CKD. I did speak with the on-call hospitalist as the patient was to be admitted by Dr. Tijerina [facility] physician group. Patient was taken to the Requirements Engineer for temporary pacemaker by Dr. Woo. Covid negative. Patient's kidney function is likely worsened. Believe that the patient's heart failure was likely caused by the patient's diastolic dysfunction from his third- degree heart block and poor ventricular rate. Critical Care: I have personally spent 55 minutes of critical care time in direct management of this patient. This includes bedside care, interpretation of diagnostic studies, and testing, discussion with consultants, patient, and family members, and other require inpatient management activities. This 55 minutes is in excess of all separately billable procedures. Past Med/Surg History Medical History (Updated 03/16/20 @ 01:22 by Kedar Bolanos MD) Anemia Aneurysm of abdominal aorta Benign prostatic hyperplasia with elevated prostate specific antigen (PSA) CAD, multiple vessel Carotid artery stenosis, asymptomatic Chronic kidney disease Chronic kidney disease, stage III (moderate) Chronic obstructive pulmonary disease Diabetes mellitus, type 2 Diabetic nephropathy Diverticulitis of colon Edema Elevated PSA Enteritis Herpes zoster Hypercholesterolemia Hyperkalemia Hyperlipidemia Hypertension Male erectile disorder of organic origin Myocardial Infarction Panic disorder without agoraphobia Peripheral vascular disease Pre-operative exam Proteinuria Pulmonary nodule Steroid-induced hyperglycemia Tobacco use disorder Uncontrolled type 2 diabetes mellitus Surgical History H/O aortic aneurysm repair History of partial colectomy Stented coronary artery Family History Other COPD (chronic obstructive pulmonary disease) Diabetes mellitus type 1 Social History Smoking Status: Never smoker Cigarettes Per Day: 20; Second Hand Exposure: No; Hx Alcohol Use: No Hx Substance Use: No Preferred Language: Malian Communication Ability: Effective Hearing Ability: Normal Regional Branch Manager Required: No Beliefs That Will Affect Care: None marital status: Current Living Situation: Spouse current occupation: Retired Feels Safe at Home: Yes caffeine: Yes Seatbelt Use: always Sunscreen Use: No Assistive Devices: Glasses Allergies Allergies Allergy/AdvReac Type Severity Reaction Status Date / Time No Known Allergies Allergy Verified 03/15/20 23:43 Home Meds Home Medications Medication Instructions Recorded Confirmed aspirin 81 mg PO Q OTHER DAY 05/23/18 03/15/20 coenzyme Q10 [Co Q-10] 200 mg PO DAILY 05/31/19 03/15/20 rosuvastatin 5 mg PO Q2D 05/31/19 03/15/20 insulin glargine 100 unit/mL (3 20 unit SUBCUT HS ml 02/13/20 03/15/20 mL) subcutaneous pen insulin regular human 100 unit/mL 10 unit SUBCUT TID ml 02/13/20 03/15/20 injection solution Previous Rx's Medication Instructions Recorded nitroglycerin [Nitrostat] 0.4 mg SUBLINGUAL UD PRN #1 btl 05/25/18 hydralazine 25 mg tablet 25 mg PO TID #60 tab 05/16/19 ezetimibe 10 mg tablet 10 mg PO DAILY #90 tab 07/07/19 metoprolol succinate 25 mg 25 mg PO BID #60 tab 09/21/19 tablet,extended release 24 hr levothyroxine 25 mcg tablet 25 mcg PO DAILY #90 tab 09/26/19 pen needle, diabetic 32 gauge x #360 ea 11/17/19" alprazolam 0.5 mg tablet 0.5 mg PO DAILY #90 tab 01/16/20 amlodipine 10 mg tablet 10 mg PO HS #90 tab 02/03/20 clopidogrel 75 mg tablet 75 mg PO DAILY #90 tab 02/03/20 Results & Data (ED) Vital Signs Vital Signs - 24 hr 03/15/20 22:24 03/15/20 22:39 03/15/20 22:40 Temperature 36.4 C L Temperature Source Temporal Artery Scan Pulse Rate 53 L 41 L 36 L Pulse Rate from SpO2 Sensor 34 L 36 L Pulse Rhythm Respiratory Rate 28 H 21 16 Respiratory Effort / Characteristics Blood Pressure 181/66 H Blood Pressure Mean 104 Pulse Oximetry 82 L 100 100 Oxygen Delivery Method Room Air Oxygen Flow Rate Sepsis Recent Fever Within 48 Hours No Sepsis New/Unexplained Change in Mental Status No Sepsis Action Taken by Nursing No Action Required 03/15/20 22:45 03/15/20 22:50 03/15/20 22:55 Temperature Temperature Source Pulse Rate 34 L 36 L 33 L Pulse Rate from SpO2 Sensor 34 L 35 L 33 L Pulse Rhythm Respiratory Rate 13 17 15 Respiratory Effort / Characteristics Blood Pressure Blood Pressure Mean Pulse Oximetry 100 100 98 Oxygen Delivery Method Oxygen Flow Rate Sepsis Recent Fever Within 48 Hours Sepsis New/Unexplained Change in Mental Status Sepsis Action Taken by Nursing 03/15/20 23:00 03/15/20 23:01 03/15/20 23:05 Temperature Temperature Source Pulse Rate 36 L 34 L 38 L Pulse Rate from SpO2 Sensor 38 L 34 L 37 L Pulse Rhythm Respiratory Rate 17 16 12 Respiratory Effort / Characteristics Blood Pressure 159/60 H Blood Pressure Mean 108 Pulse Oximetry 98 99 100 Oxygen Delivery Method Oxygen Flow Rate Sepsis Recent Fever Within 48 Hours Sepsis New/Unexplained Change in Mental Status Sepsis Action Taken by Nursing 03/15/20 23:06 03/15/20 23:07 03/15/20 23:08 Temperature Temperature Source Pulse Rate 41 L 37 L Pulse Rate from SpO2 Sensor 37 L 37 L Pulse Rhythm Respiratory Rate 16 17 Respiratory Effort / Characteristics Blood Pressure 168/62 H Blood Pressure Mean 110 Pulse Oximetry 99 99 Oxygen Delivery Method Oxygen Flow Rate 8 Sepsis Recent Fever Within 48 Hours Sepsis New/Unexplained Change in Mental Status Sepsis Action Taken by Nursing 03/15/20 23:30 03/15/20 23:31 03/16/20 00:00 Temperature Temperature Source Pulse Rate 38 L 36 L 35 L Pulse Rate from SpO2 Sensor 37 L 36 L 35 L Pulse Rhythm Respiratory Rate 16 15 24 Respiratory Effort / Characteristics Non-Labored Blood Pressure 191/69 H 157/59 H Blood Pressure Mean 101 79 Pulse Oximetry 97 93 98 Oxygen Delivery Method Oxymask Oxygen Flow Rate Sepsis Recent Fever Within 48 Hours Sepsis New/Unexplained Change in Mental Status Sepsis Action Taken by Nursing 03/16/20 00:02 Temperature Temperature Source Pulse Rate 35 L Pulse Rate from SpO2 Sensor Pulse Rhythm Regular Respiratory Rate 20 Respiratory Effort / Characteristics Blood Pressure Blood Pressure Mean Pulse Oximetry 98 Oxygen Delivery Method Oxymask Oxygen Flow Rate 6 Sepsis Recent Fever Within 48 Hours Sepsis New/Unexplained Change in Mental Status Sepsis Action Taken by [facility] Medications Current Medication List: was personally reviewed by me Laboratory Data Attestation: I reviewed the patient's lab results. Result diagrams: 03/15/20 23:00 03/15/20 23:00 Lab Results 03/15/20 03/15/20 03/15/20 Range/Units 23:00 23:00 23:00 WBC 12.81 H (4.8-10.8) K/uL RBC 4.49 L (4.7-6.1) M/uL Hgb 14.0 (14.0-18.0) g/dL Hct 41.5 L (42-52) % MCV 92.4 (80-100) fL MCH 31.2 (25-34) pg MCHC 33.7 (32-36) g/dL RDW Std Deviation 48.9 H (36.4-46.3) fL RDW Coeff of Pj 14.5 (11.5-14.5) % Plt Count 269 (130-400) K/uL MPV 10.4 (7.4-10.4) fL Immature Gran % (Auto) 0.3 % Neut % (Auto) 72.8 % Lymph % (Auto) 16.2 % Meagher % (Auto) 8.8 % Eos % (Auto) 1.4 % Baso % (Auto) 0.5 % Neut # (Auto) 9.33 H (1.4-6.5) K/uL Lymph # (Auto) 2.07 (1.2-3.4) K/uL Meagher # (Auto) 1.13 H (0.11-0.59) K/uL Eos # (Auto) 0.18 (0-0.5) K/uL Baso # (Auto) 0.06 (0-0.2) K/uL Immature Gran # (Auto) 0.04 H (0.00-0.02) K/uL PT 11.1 (9.0-12.0) Seconds INR 1.1 (0.9-1.1) APTT 28.2 (21.0-31.0) Seconds PTT Ratio 1.0 Sodium 137 (136-145) mmol/L Potassium 4.0 (3.5-5.1) mmol/L Chloride 106 (98-107) mmol/L Carbon Dioxide 22 (21-32) mmol/L Anion Gap 10.0 (3-11) BUN 50 H (7-18) mg/dl Creatinine 2.27 H (0.6-1.4) mg/dl Est Cr Clr Drug Dosing 29.7 ml/min Est GFR ( Amer) 30.2 Est GFR (Non-Af Amer) 26.1 BUN/Creatinine Ratio 21.9 H (10-20) Glucose 330 H* (70-99) mg/dl Lactate (0.4-2.0) mmol/L Calcium 8.9 (8.5-10.1) mg/dl Phosphorus 3.5 (2.5-4.9) mg/dl Magnesium 1.9 (1.8-2.4) mg/dl Total Bilirubin 0.7 (0.2-1) mg/dl AST 21 (15-37) U/L ALT 24 (12-78) U/L Alkaline Phosphatase 108 (45-117) U/L Troponin I 0.062 H* (0-0.045) ng/ml NT-Pro-B Natriuret Pep 7897 H (0-1800) pg/ml Total Protein 7.3 (6.4-8.2) gm/dl Albumin 3.6 (3.4-5.0) gm/dl Globulin 3.7 (2.5-4.0) gm/dl Albumin/Globulin Ratio 1.0 (0.9-2) Beta-Hydroxybutyric Acd 6.19 H (0.2-2.81) mg/dl Procalcitonin (0-0.5) ng/ml COVID-19 Eval Order Influ A Molecular Assay (Negative) Influ B Molecular Assay (Negative) SARS-CoV-2, RNA, NAAT (NEGATIVE) 03/15/20 03/15/20 03/15/20 Range/Units 23:00 23:00 23:19 WBC (4.8-10.8) K/uL RBC (4.7-6.1) M/uL Hgb (14.0-18.0) g/dL Hct (42-52) % MCV (80-100) fL MCH (25-34) pg MCHC (32-36) g/dL RDW Std Deviation (36.4-46.3) fL RDW Coeff of Pj (11.5-14.5) % Plt Count (130-400) K/uL MPV (7.4-10.4) fL Immature Gran % (Auto) % Neut % (Auto) % Lymph % (Auto) % Meagher % (Auto) % Eos % (Auto) % Baso % (Auto) % Neut # (Auto) (1.4-6.5) K/uL Lymph # (Auto) (1.2-3.4) K/uL Meagher # (Auto) (0.11-0.59) K/uL Eos # (Auto) (0-0.5) K/uL Baso # (Auto) (0-0.2) K/uL Immature Gran # (Auto) (0.00-0.02) K/uL PT (9.0-12.0) Seconds INR (0.9-1.1) APTT (21.0-31.0) Seconds PTT Ratio Sodium (136-145) mmol/L Potassium (3.5-5.1) mmol/L Chloride (98-107) mmol/L Carbon Dioxide (21-32) mmol/L Anion Gap (3-11) BUN (7-18) mg/dl Creatinine (0.6-1.4) mg/dl Est Cr Clr Drug Dosing ml/min Est GFR ( Amer) Est GFR (Non-Af Amer) BUN/Creatinine Ratio (10-20) Glucose (70-99) mg/dl Lactate 1.8 (0.4-2.0) mmol/L Calcium (8.5-10.1) mg/dl Phosphorus (2.5-4.9) mg/dl Magnesium (1.8-2.4) mg/dl Total Bilirubin (0.2-1) mg/dl AST (15-37) U/L ALT (12-78) U/L Alkaline Phosphatase (45-117) U/L Troponin I (0-0.045) ng/ml NT-Pro-B Natriuret Pep (0-1800) pg/ml Total Protein (6.4-8.2) gm/dl Albumin (3.4-5.0) gm/dl Globulin (2.5-4.0) gm/dl Albumin/Globulin Ratio (0.9-2) Beta-Hydroxybutyric Acd (0.2-2.81) mg/dl Procalcitonin < 0.05 (0-0.5) ng/ml COVID-19 Eval Order Influ A Molecular Assay Negative (Negative) Influ B Molecular Assay Negative (Negative) SARS-CoV-2, RNA, NAAT (NEGATIVE) 03/15/20 03/15/20 03/15/20 Range/Units 23:19 23:19 23:42 WBC (4.8-10.8) K/uL RBC (4.7-6.1) M/uL Hgb (14.0-18.0) g/dL Hct (42-52) % MCV (80-100) fL MCH (25-34) pg MCHC (32-36) g/dL RDW Std Deviation (36.4-46.3) fL RDW Coeff of Pj (11.5-14.5) % Plt Count (130-400) K/uL MPV (7.4-10.4) fL Immature Gran % (Auto) % Neut % (Auto) % Lymph % (Auto) % Meagher % (Auto) % Eos % (Auto) % Baso % (Auto) % Neut # (Auto) (1.4-6.5) K/uL Lymph # (Auto) (1.2-3.4) K/uL Meagher # (Auto) (0.11-0.59) K/uL Eos # (Auto) (0-0.5) K/uL Baso # (Auto) (0-0.2) K/uL Immature Gran # (Auto) (0.00-0.02) K/uL PT (9.0-12.0) Seconds INR (0.9-1.1) APTT (21.0-31.0) Seconds PTT Ratio Sodium (136-145) mmol/L Potassium (3.5-5.1) mmol/L Chloride (98-107) mmol/L Carbon Dioxide (21-32) mmol/L Anion Gap (3-11) BUN (7-18) mg/dl Creatinine (0.6-1.4) mg/dl Est Cr Clr Drug Dosing ml/min Est GFR ( Amer) Est GFR (Non-Af Amer) BUN/Creatinine Ratio (10-20) Glucose (70-99) mg/dl Lactate (0.4-2.0) mmol/L Calcium (8.5-10.1) mg/dl Phosphorus (2.5-4.9) mg/dl Magnesium (1.8-2.4) mg/dl Total Bilirubin (0.2-1) mg/dl AST (15-37) U/L ALT (12-78) U/L Alkaline Phosphatase (45-117) U/L Troponin I (0-0.045) ng/ml NT-Pro-B Natriuret Pep (0-1800) pg/ml Total Protein (6.4-8.2) gm/dl Albumin (3.4-5.0) gm/dl Globulin (2.5-4.0) gm/dl Albumin/Globulin Ratio (0.9-2) Beta-Hydroxybutyric Acd (0.2-2.81) mg/dl Procalcitonin (0-0.5) ng/ml COVID-19 Eval Order Covid19 IDNow [facility] Influ A Molecular Assay (Negative) Influ B Molecular Assay (Negative) SARS-CoV-2, RNA, NAAT NEGATIVE NEGATIVE (NEGATIVE) Administered Medications Discontinued Medications Atropine Sulfate (Atropine Sulfate 0.1 Mg/Ml 10ml Syr) 0.5 mg IV NOW STA Stop: 03/15/20 22:59 Last Admin: 03/15/20 23:32 Dose: 0.5 mg Documented by: [id number] Fentanyl Citrate (Fentanyl Citrate 100 Mcg/2 Ml Vial) Confirm Administered Dose 100 mcg .ROUTE .K-MED ONE Stop: 03/16/20 00:00 Last Admin: 03/16/20 00:48 Dose: 100 mcg Documented by: [id number] Furosemide (Furosemide 40 Mg/4 Ml Vial) 40 mg IV NOW STA Stop: 03/15/20 23:11 Last Admin: 03/15/20 23:32 Dose: Not Given Documented by: [id number] Furosemide (Furosemide 40 Mg/4 Ml Vial) Confirm Administered Dose 40 mg IV .STK- MED ONE Stop: 03/15/20 23:12 Last Admin: 03/15/20 23:32 Dose: 40 mg Documented by: [id number] Heparin Sodium (Porcine) (Heparin (Porcine) 1000 Unit/Ml 10 Ml (Requirements Engineer Use Only)) Confirm Administered Dose 10,000 units .ROUTE .STK-MED ONE Stop: 03/16/20 00:00 Last Admin: 03/16/20 00:49 Dose: 10,000 units Documented by: [id number] Heparin Sodium/Sodium Chloride (Heparin In Nss Infusion 1000 Unit/500 Ml (2 U/Ml) Bag) Confirm Administered Dose 3,000 units IV .STK-MED ONE Stop: 03/16/20 00:01 Last Admin: 03/16/20 00:49 Dose: 3,000 units Documented by: [id number] Midazolam HCl (Midazolam Hcl 1 Mg/Ml 2ml Vial) Confirm Administered Dose 2 mg .ROUTE .STK-MED ONE Stop: 03/16/20 00:00 Last Admin: 03/16/20 00:49 Dose: 2 mg Documented by: [id number] Nicardipine HCl (Nicardipine Hcl Inj 2.5 Mg/Ml 10 Ml Amp) Confirm Administered Dose 25 mg .ROUTE .STK-MED ONE Stop: 03/16/20 00:00 Last Admin: 03/16/20 00:48 Dose: 25 mg Documented by: [id number] Nitroglycerin/Dextrose (Nitroglycerin/D5w 100mcg/Ml 20ml Syr) Confirm Administered Dose 2,000 mcg .ROUTE .STK-MED ONE Stop: 03/16/20 00:01 Last Admin: 03/16/20 00:49 Dose: 2,000 mcg Documented by: [id number] Discharge Plan Visit Data Chief Complaint: Shortness of Breath/Dyspnea Stated Complaint: SOB ED Provider: Kedar Bolanos Discharge Problem: Third degree heart block, CHF (congestive heart failure), Acute respiratory failure with hypoxemia Discharge Instructions Interventions: ED Discharge Assessment Last Done: 03/16/20 00:13 Forms Stand Alone Forms: My [facility] [employer] Prescriptions Prescriptions: No Action ezetimibe 10 mg tablet 10 mg PO DAILY Qty: 90 RF: 3 metoprolol succinate 25 mg tablet extended release 24 hr 25 mg PO BID Qty: 60 RF: 0 levothyroxine 25 mcg tablet 25 mcg PO DAILY Qty: 90 RF: 3 (DME) pen needle, diabetic [BD Ultra-Fine [place] Pen Needle] 32 gauge x 5/32" needle See Rx Instructions .ROUTE .MEDSUPPLY Qty: 360 RF: 3 alprazolam 0.5 mg tablet 0.5 mg PO DAILY Qty: 90 RF: 1 amlodipine 10 mg tablet 10 mg PO HS Qty: 90 RF: 3 clopidogrel 75 mg tablet 75 mg PO DAILY Qty: 90 RF: 3 Novolin R Regular U-100 Insuln 100 unit/mL solution 10 unit subcut TID RF: 0 insulin glargine 100 unit/mL (3 mL) insulin pen 20 unit subcut HS RF: 0 hydralazine 25 mg tablet 25 mg PO TID Qty: 60 RF: 4 rosuvastatin 5 mg tablet 5 mg PO Q2D RF: 0 coenzyme Q10 [Co Q-10] 200 mg Capsule 200 mg PO DAILY RF: 0 aspirin 81 mg tablet,delayed release (DR/EC) 81 mg PO Q OTHER DAY RF: 0 nitroglycerin [Nitrostat] 0.4 mg Tablet, Sublingual 0.4 mg Sublingual UD PRN (Reason: chest pain) Qty: 1 RF: 4 Referrals Referrals: Pietro Calvo MD [Primary Care Provider] - Discharge Problem: CHF (congestive heart failure) Qualifiers: Heart failure type: diastolic Heart failure chronicity: acute Qualified Code(s): I50.31 - Acute diastolic (congestive) heart failure
[2020-03-15] MEDS ORDERED: ATROPINE SULFATE 0.1 MG/ML 10ML SYR IV STA (22:58)
[2020-03-15] MEDS ORDERED: FUROSEMIDE 40 MG/4 ML VIAL IV STA (23:10)
[2020-03-15] MEDS ORDERED: FUROSEMIDE 40 MG/4 ML VIAL IV ONE (23:11)
[2020-03-15 23:25] LABS: Basophils # (auto) 0.06 K/uL (0-0.2); Basophils % (auto) 0.5 %; Eosinophils # (auto) 0.18 K/uL (0-0.5); Eosinophils % (auto) 1.4 %; Hematocrit (blood only) 41.5 % (42-52); Immature Granulocytes # (auto) 0.04 K/uL (0.00-0.02); Immature Granulocytes % (auto) 0.3 %; Lymphocytes # (auto) 2.07 K/uL (1.2-3.4); Lymphocytes % (auto) 16.2 %; Mean Corpuscular Hemoglobin 31.2 pg (25-34); Mean Corpuscular Hgb Conc 33.7 g/dL (32-36); Mean Corpuscular Volume 92.4 fL (80-100); Mean Platelet Volume 10.4 fL (7.4-10.4); Monocytes # (auto) 1.13 K/uL (0.11-0.59); Monocytes % (auto) 8.8 %; Neutrophils # (auto) 9.33 K/uL (1.4-6.5); Neutrophils % (auto) 72.8 %; Platelet Count 269 K/uL (130-400); RDW Coefficient of Variation 14.5 % (11.5-14.5); RDW Standard Deviation 48.9 fL (36.4-46.3); Red Blood Count 4.49 M/uL (4.7-6.1); White Blood Count 12.81 K/uL (4.8-10.8)
[2020-03-15 23:35] LABS: INR 1.1 (0.9-1.1); Partial Thromboplastin Time 28.2 Seconds (21.0-31.0); Prothrombin Time 11.1 Seconds (9.0-12.0)
[2020-03-15 23:50] LABS: Albumin Level 3.6 gm/dl (3.4-5.0); BUN Creatinine Ratio 21.9 (10-20); Bilirubin,Total 0.7 mg/dl (0.2-1); Calcium 8.9 mg/dl (8.5-10.1); Creatinine Clr Calc Pharmacy 29.7 ml/min; Est GFR (African American) 30.2; Est GFR (Non-African American) 26.1; Globulin 3.7 gm/dl (2.5-4.0); Magnesium 1.9 mg/dl (1.8-2.4); Phosphorus 3.5 mg/dl (2.5-4.9); Total Protein 7.3 gm/dl (6.4-8.2); Troponin I 0.062 ng/ml (0-0.045)
[2020-03-15] MEDS ORDERED: fentaNYL citrate 100 MCG/2 ML VIAL ONE (23:59)
[2020-03-15] MEDS ORDERED: HEPARIN (PORCINE) 1000 UNIT/ML 10 ML (CATH LAB USE ONLY) ONE (23:59)
[2020-03-15] MEDS ORDERED: niCARdipine HCL INJ 2.5 MG/ML 10 ML AMP ONE (23:59)
[2020-03-15] MEDS ORDERED: MIDAZOLAM HCL 1 MG/ML 2ML VIAL ONE (23:59)
[2020-03-16] MEDS ORDERED: NITROGLYCERIN/D5W 100MCG/ML 20ML SYR ONE
[2020-03-16 00:01] LABS: Beta-Hydroxybutyrate 6.19 mg/dl (0.2-2.81)
[2020-03-16 00:09] LABS: Influenza A virus by PCR Negative (Negative); Influenza B virus by PCR Negative (Negative)
--- NOTE | 2020-03-16 00:31 | Pre Anesthesia Assessment ---
Date of Service March 16, 2020 Pre Sedation Assessment Vital Signs Temp Pulse Resp BP Pulse Ox 03/16/20 00:02 35 L 20 98 03/16/20 00:00 35 L 24 157/59 H 98 03/15/20 23:31 36 L 15 191/69 H 93 03/15/20 23:30 38 L 16 97 03/15/20 23:07 37 L 17 99 03/15/20 23:06 41 L 16 168/62 H 99 03/15/20 23:05 38 L 12 100 03/15/20 23:01 34 L 16 159/60 H 99 03/15/20 23:00 36 L 17 98 03/15/20 22:55 33 L 15 98 03/15/20 22:50 36 L 17 100 03/15/20 22:45 34 L 13 100 03/15/20 22:40 36 L 16 100 03/15/20 22:39 41 L 21 100 03/15/20 22:24 97.5 F L 53 L 28 H 181/66 H 82 L Cardiovascular + bradycardic Respiratory normal respiratory effort, lungs clear to auscultation Pre-Sedation Airway Assessment Smoking Status: Never smoker Hx Sleep Apnea: No Hx Difficult Intubation: No Thyromental Distance: > or= 3.5 Finger Breadths Oral Cavity: + Dental Abnormalities Mallampati Class: III ASA: ASA3 Procedure Planning Contraindications for Sedation: none Current Medications Reviewed: Yes Notes The planned sedation has been discussed with the patient. Informed Consent was obtained. I have identified the patient, determined the appropriateness of sedation and have assessed the patient immediately prior to the procedure. All medicine(s) and interventions are by my order.
--- NOTE | 2020-03-16 00:31 | Cardiology Consultation ---
Date of Consultation March 16, 2020 Assessment & Plan (1) Complete heart block: Patient here with symptomatic third-degree heart block. Heart rate unresponsive to atropine. Noted to have wide-complex ventricular escape rhythm. Plan to proceed with placement of transvenous temporary pacemaker via right internal jugular vein. Post procedure admit to ICU, trend troponins, check echocardiogram in a.m., and evaluate for potential reversible causes. Hold beta-percy. Will be seen by EP in a.m. for consideration of permanent device. History of Present Illness History of Present Illness Mr. Lynn is a very pleasant 80-year-old male with a history of coronary artery disease post LAD, RCA stents 2011, circumflex stent in 2019 the setting of NSTEMI, peripheral arterial disease post EVAR and prior renal artery stents with known bilateral subclavian disease, stage III chronic kidney disease, type 2 diabetes, dyslipidemia, COPD, hypothyroidism. He was seen urgently in the ED after found to be in complete heart block. Cardiology consult for transvenous pacemaker. He is followed by Dr. Dubois as an outpatient for his cardiac care. Patient reports intermittent dyspnea on exertion over the last 3 days. Reports intermittent presyncope. Today continues to have shortness of breath along with back tightness. Tightness different than prior he had with his NM. On arrival to ED hypertensive up to 180s, heart rate to the 30s. ECG showed complete heart block with wide ventricular escape with right bundle branch block morphology. Initial labs remarkable for elevated creatinine up to 2.3, elevated proBNP at 7800 and mildly elevated troponin at 0.062 (mildly elevated at 0.096 last hospitalization 05/2019). Last ECG 05/2019 showed sinus rhythm with right bundle branch block, left anterior fascicular block. Allergies Allergy/AdvReac Type Severity Reaction Status Date / Time No Known Allergies Allergy Verified 03/15/20 23:43 Home Medications Medication Instructions Recorded Confirmed Type aspirin 81 mg PO Q OTHER DAY 05/23/18 03/15/20 History nitroglycerin [Nitrostat] 0.4 mg SUBLINGUAL UD PRN #1 btl 05/25/18 03/15/20 Rx hydralazine 25 mg tablet 25 mg PO TID #60 tab 05/16/19 03/15/20 Rx coenzyme Q10 [Co Q-10] 200 mg PO DAILY 05/31/19 03/15/20 History rosuvastatin 5 mg PO Q2D 05/31/19 03/15/20 History ezetimibe 10 mg tablet 10 mg PO DAILY #90 tab 07/07/19 03/15/20 Rx metoprolol succinate 25 mg 25 mg PO BID #60 tab 09/21/19 03/15/20 Rx tablet,extended release 24 hr levothyroxine 25 mcg tablet 25 mcg PO DAILY #90 tab 09/26/19 03/15/20 Rx pen needle, diabetic 32 gauge x #360 ea 11/17/19 02/13/20 Rx 5/32" alprazolam 0.5 mg tablet 0.5 mg PO DAILY #90 tab 01/16/20 03/15/20 Rx amlodipine 10 mg tablet 10 mg PO HS #90 tab 02/03/20 03/15/20 Rx clopidogrel 75 mg tablet 75 mg PO DAILY #90 tab 02/03/20 03/15/20 Rx insulin glargine 100 unit/mL (3 20 unit SUBCUT HS ml 02/13/20 03/15/20 History mL) subcutaneous pen insulin regular human 100 unit/mL 10 unit SUBCUT TID ml 02/13/20 03/15/20 History injection solution Patient History Medical History (Updated 03/16/20 @ 00:28 by Pietro Woo MD) Anemia Aneurysm of abdominal aorta Benign prostatic hyperplasia with elevated prostate specific antigen (PSA) CAD, multiple vessel Carotid artery stenosis, asymptomatic Chronic kidney disease Chronic kidney disease, stage III (moderate) Chronic obstructive pulmonary disease Diabetes mellitus, type 2 Diabetic nephropathy Diverticulitis of colon Edema Elevated PSA Enteritis Herpes zoster Hypercholesterolemia Hyperkalemia Hyperlipidemia Hypertension Male erectile disorder of organic origin Myocardial Infarction Panic disorder without agoraphobia Peripheral vascular disease Pre-operative exam Proteinuria Pulmonary nodule Steroid-induced hyperglycemia Tobacco use disorder Uncontrolled type 2 diabetes mellitus Surgical History H/O aortic aneurysm repair History of partial colectomy Stented coronary artery Family History Other COPD (chronic obstructive pulmonary disease) Diabetes mellitus type 1 Social History Smoking Status: Never smoker Cigarettes Per Day: 20; Second Hand Exposure: No; Hx Alcohol Use: No Hx Substance Use: No Preferred Language: Slovak Communication Ability: Effective Hearing Ability: Normal Spine Nurse Required: No Beliefs That Will Affect Care: None marital status: Current Living Situation: Spouse current occupation: Retired Feels Safe at Home: Yes caffeine: Yes Seatbelt Use: always Sunscreen Use: No Assistive Devices: Glasses Review of Systems Review of Systems: Not completed in the setting of emergent situation Physical Exam Physical Exam: General: Comfortable, no acute distress HEENT: Sclerae anicteric, mask in place Lungs: Clear other than few scattered wheezes Cardiac: Bradycardic, regular, elevated JVP Abdomen: Soft, nontender Extremities: Warm, well perfused, no edema. Skin: No rashes or lesions. Neuro: Nonfocal Psych: Alert orient x3, normal affect and mood Results & Data ([facility]) Vital Signs (Past 12 Hours) Vital Signs Temp Pulse Resp BP Pulse Ox 03/16/20 00:02 35 L 20 98 03/16/20 00:00 35 L 24 157/59 H 98 03/15/20 23:31 36 L 15 191/69 H 93 03/15/20 23:30 38 L 16 97 03/15/20 23:07 37 L 17 99 03/15/20 23:06 41 L 16 168/62 H 99 03/15/20 23:05 38 L 12 100 03/15/20 23:01 34 L 16 159/60 H 99 03/15/20 23:00 36 L 17 98 03/15/20 22:55 33 L 15 98 03/15/20 22:50 36 L 17 100 03/15/20 22:45 34 L 13 100 03/15/20 22:40 36 L 16 100 03/15/20 22:39 41 L 21 100 03/15/20 22:24 97.5 F L 53 L 28 H 181/66 H 82 L PG Care Time/CCT Total # of Minutes Spent Total Time Spent with Patient: Total time spent is greater than 50% in coordination of care (as documented) at patient's floor/unit and/or counseling patient: Coding Level of Care Code 77601 Initial Inpt Care Lvl 3 Diagnoses Complete heart block I44.2
[2020-03-16] MEDS ORDERED: ICU PROTOCOL FOR HYPERGLYCEMIA PRN ×2 (01:03→02:59)
--- NOTE | 2020-03-16 01:03 | Cardiac Catheterization ---
[facility] Data: Second Crusher Cardiac Status Clinical evaluation leading to the procedure CAD Presenation: Sx unlikely to be ischemic Anginal Classification: No Symptoms Heart Failure: NYHA Class: CCS III Cardiogenic Shock within 24 Hours: No Cardiac Arrest within 24 Hours: No Imaging Studies Past 6 Months: No Stress Studies Past 6 Months: No Diagnostic Physicians Name: Gene Woo MD Status: Urgent Closure Device Percutaneous Entry Location: Jugular Recommendations: Management Recommendatons (Pacemaker placement) Intraprocedure Events Significant Disection: No Perforation: No Cardiac Cath Procedure Full Procedure Date March 16, 2020 Pre-Procedure Diagnosis Pre-Procedure Diagnosis: Arrhythmia (Complete heart block) AUC Score AUC Score: 7 Post-Procedure Diagnosis Post-Procedure Diagnosis: Cardiothoracic Finding (Successful placement of transvenous temporary pacemaker) Procedure(s) Performed Procedure(s) Performed: Temporary Pacemaker and Ultrasound Guided Vascular Access Balance Clerk Gene Woo MD Chief Electrician(s) Kalen Estimated Blood Loss Estimated Blood Loss: 5 Medication(s) Medication(s): Lidocaine 1% Summary of Findings Indication: Symptomatic complete heart block Procedure: Under ultrasound guidance right internal jugular vein accessed with micropuncture needle 6 Fr sheath placed to right IJ 6 Fr transvenous pacemaker wire navigated to RV under fluoroscopic guidance Adequate pacing at outputs less than 0.5 mA Sheath/device sutured into place. Final settings: VVI at 60 bpm, output 5 mA Summary: 1. Successful placement of temporary transvenous pacemaker Recommendations: Evaluate for reversible causes of heart block, trend troponin, continue to hold beta-percy, echocardiogram in morning. Further evaluation by EP tomorrow for consideration of permanent pacemaker. Hemodynamics Rest Ao:: -- Final Ao: -- LV: -- Recommendations Recommendations: Management Recommendatons (Pacemaker placement) Specimens Specimens: None Radiation Exposure (mGy) 79 Contrast (mls) -- Fluids (cc crystalloids) Fluids (cc crystalloids): -- Drains Drains: None Anesthesia lidocaine Procedural Complication(s) None Disposition ICU I attest to the content of the Intraoperative Record and any orders documented therein. Any exceptions are noted below. [facility] Card Cath Procedure Codes Therapeutic Services & Ancillary Proc Procedure 1: Cardiovascular Tx and Anc Procedures: 90037 Ultrasonic Guidance Vascular Access Procedure 2: Cardiovascular Tx and Anc Procedures: 22933 Temp Pacer Insert PG Care Time/CCT Total # of Minutes Spent Total Time Spent with Patient: Total time spent is greater than 50% in coordination of care (as documented) at patient's floor/unit and/or counseling patient:
--- NOTE | 2020-03-16 02:15 | Critical Care Consultation ---
Date of Consultation March 16, 2020 Assessment & Plan (1) Admitted to intensive care unit: Reason Critically Ill: 80-year-old male presenting with complete heart block requiring placement of transvenous pacemaker. Patient requiring close hemodynamic monitoring status post intervention. NEURO - * CAM ICU: NEGATIVE CARDIAC/VASCULAR - * Complete heart block: * Currently capturing with transvenous pacemaker. * Patient without complaints of chest pain or shortness of breath at this time. * Will add Lyme titers for the sake of completion. * Patient likely to undergo permanent pacemaker placement in the near future. * CHF: * Likely secondary to poor forward flow in the setting of symptomatic complete heart block. * Received IV Lasix in the emergency department. * Repeat chest x-ray in a.m. * Titrating down FiO2 at this time. * Additional Lasix as needed. * NSTEMI: * Without EKG findings other than complete heart block. * Likely demand ischemia in the CAD patient. * Trend troponins. * EKG: Complete heart block at a rate of [address] changes noted. QTc 427 ms. * Monitor on telemetry. RESPIRATORY - * Hypoxia: * Likely secondary to CHF exacerbation. * Monitor for improvement as clinical status improves from a cardiovascular standpoint. * Titrate down FiO2 as tolerated. GI/NUTRITION - * N.p.o. pending intervention tomorrow. RENAL/LYTES - * MARJORIE on CKD 3: * Again likely worsened secondary to decreased forward flow. * Will monitor for clinical improvements with changes in cardiovascular status. * Hold on further IV fluids at this time. - * No concerns at this time. * Strict I&Os. ENDO - * h/o DMII: * BSGs per unit protocol. ISS --> gtt per unit policy. * Hypothyroidism: * Check TSH/Free T4 for the sake of completeness. * Continue home Levothyroxine dose. HEME - * Stable H&H ID - * No concerns for infectious contribution at this time. * Covid-19 Negative LINES/IV ACCESS - * PIVs x2 DVT PROPHYLAXIS - * Hold on chemoprophylaxis pending likely permanent pacemaker placement. * SCDs I have personally spent 45 minutes of critical care time in the direct management of this patient. This is a life/limb threatening event. This includes time spent evaluating patient, direct bedside care, chart review, placing orders, interpretation of diagnostic studies, discussion with consultants, patient, and family members, as well as other required patient management activities. This time is exclusive of all separately billable procedures, and teaching time and separate from and in addition to any other critical care service time. Thank you for allowing us to participate in the care of this patient. Please refer to my attending physician's documentation for any further recommendations. (2) Third degree heart block: (3) CHF (congestive heart failure): (4) Acute respiratory failure with hypoxemia: (5) Hypertension: (6) Uncontrolled type 2 diabetes mellitus: (7) Chronic obstructive pulmonary disease: (8) Hypercholesterolemia: (9) Chronic kidney disease, stage III (moderate): (10) CAD, multiple vessel: (11) Hypothyroidism: (12) MARJORIE (acute kidney injury): Supervising Physician Co-Signing Physician Notes I have personally evaluated and examined this patient. I agree with assessment and plan of Lawson Esteban PA-C. Patient received in signout please review my documentation for additional information History of Present Illness Attending Physician: Keith Enamorado MD History of Present Illness Patient is an 80-year-old male with a significant past medical history of coronary artery disease, hypertension, hyperlipidemia, CKD 3, diabetes, and COPD. Patient presented to the emergency department with a 2-day history of generalized weakness and shortness of breath on exertion. Patient is without recent fever or COVID-19 contacts. He states that he began having generalized weakness and some shortness of breath at rest which prompted visit to the emergency department today. While in the emergency department, the patient was found to be in a complete heart block with a rate in the 30s. Heart alert was called and the patient was taken to the catheterization suite where temporary pacemaker was placed. Patient was found to have an acute on chronic kidney injury. He is hypoxemic requiring supplemental oxygen. He was noted to be in CHF and provided Lasix. Troponin is elevated. Upon arrival in the ICU, the patient is awake, alert, and oriented. He states that just prior to my arrival he did have some slight chest discomfort which lasted a few seconds and has completely resolved at this point. Patient is fixated on his oxygen levels. Otherwise, the patient states that he feels better at this time. He offers no complaints. Specifically, the patient denies any complaints of headaches, dizziness, lightheadedness, chest pain, palpitations, pleuritic pain, shortness of breath, nausea, vomiting, or abdominal pain. Allergies Allergy/AdvReac Type Severity Reaction Status Date / Time No Known Allergies Allergy Verified 03/15/20 23:43 Home Medications Medication Instructions Recorded Confirmed Type aspirin 81 mg PO Q OTHER DAY 05/23/18 03/15/20 History nitroglycerin [Nitrostat] 0.4 mg SUBLINGUAL UD PRN #1 btl 05/25/18 03/15/20 Rx hydralazine 25 mg tablet 25 mg PO TID #60 tab 05/16/19 03/15/20 Rx coenzyme Q10 [Co Q-10] 200 mg PO DAILY 05/31/19 03/15/20 History rosuvastatin 5 mg PO Q2D 05/31/19 03/15/20 History ezetimibe 10 mg tablet 10 mg PO DAILY #90 tab 07/07/19 03/15/20 Rx metoprolol succinate 25 mg 25 mg PO BID #60 tab 09/21/19 03/15/20 Rx tablet,extended release 24 hr levothyroxine 25 mcg tablet 25 mcg PO DAILY #90 tab 09/26/19 03/15/20 Rx pen needle, diabetic 32 gauge x #360 ea 11/17/19 02/13/20 Rx 5/32" alprazolam 0.5 mg tablet 0.5 mg PO DAILY #90 tab 01/16/20 03/15/20 Rx amlodipine 10 mg tablet 10 mg PO HS #90 tab 02/03/20 03/15/20 Rx clopidogrel 75 mg tablet 75 mg PO DAILY #90 tab 02/03/20 03/15/20 Rx insulin glargine 100 unit/mL (3 20 unit SUBCUT HS ml 02/13/20 03/15/20 History mL) subcutaneous pen insulin regular human 100 unit/mL 10 unit SUBCUT TID ml 02/13/20 03/15/20 History injection solution Patient History Medical History (Updated 03/16/20 @ 04:07 by Gatito Esteban PA-C) Anemia Aneurysm of abdominal aorta Benign prostatic hyperplasia with elevated prostate specific antigen (PSA) CAD, multiple vessel Carotid artery stenosis, asymptomatic Chronic kidney disease Chronic kidney disease, stage III (moderate) Chronic obstructive pulmonary disease Diabetes mellitus, type 2 Diabetic nephropathy Diverticulitis of colon Edema Elevated PSA Enteritis Herpes zoster Hypercholesterolemia Hyperkalemia Hyperlipidemia Hypertension Male erectile disorder of organic origin Myocardial Infarction Panic disorder without agoraphobia Peripheral vascular disease Pre-operative exam Proteinuria Pulmonary nodule Steroid-induced hyperglycemia Tobacco use disorder Uncontrolled type 2 diabetes mellitus Surgical History H/O aortic aneurysm repair History of partial colectomy Stented coronary artery Family History Other COPD (chronic obstructive pulmonary disease) Diabetes mellitus type 1 Social History Smoking Status: Former smoker Cigarettes Per Day: 20; Second Hand Exposure: No; Hx Alcohol Use: No Hx Substance Use: No Preferred Language: Spanish Communication Ability: Effective Hearing Ability: Normal Utility Manager Required: No Beliefs That Will Affect Care: None marital status: Current Living Situation: Spouse current occupation: Retired Other Information That Helps Us Care for You: No Feels Safe at Home: Yes Safety Concerns: Feels Safe At This Time caffeine: Yes Seatbelt Use: always Sunscreen Use: No Assistive Devices: None and Glasses Review of Systems Review of Systems: A complete 10 point review of systems was reviewed with the patient with pertinent positives and negatives as per history of present illness. All else were negative. Physical Exam Physical Exam: VITAL SIGNS - Vital signs and nursing notes were reviewed. GENERAL - 80-year-old male appearing his stated age who is in no acute distress. Communicates well with provider and answers questions appropriately. SKIN - Without rashes. HEAD - NC/AT. EYES - PERRL with EOMI bilaterally. Sclera anicteric. EARS - No deformities of external structures noted on gross examination bilatera lly. NOSE - Midline and without cyanosis. No epistaxis or purulent drainage noted. MOUTH/OROPHARYNX - Without perioral cyanosis. Buccal mucosa pink and moist and without leukoplakia. NECK - RIGHT IJ temporary pacer in place. Neck with FROM. Supple to palpation. No nuchal rigidity. LUNGS - Chest wall symmetric without accessory muscle use, intercostals retractions, or central cyanosis. Normal vesicular breath sounds CTA B/L. Bibasilar rales noted. CARDIAC - RRR with S1/S2. No murmur, rubs, or gallops appreciated. ABDOMEN - Abdominal contour obese without pulsations or visible masses. BS norm oactive all four quadrants. No tenderness, palpable masses, hepatosplenomegaly, or ascites noted. EXTREMITIES - No clubbing or peripheral cyanosis. No pretibial edema present. +3/5 radial and dorsalis pedis pulses palpated throughout. +5/5 strength noted in UE/LE bilaterally. NEUROLOGIC - Cranial nerves II through XII grossly intact. Sensory intact to light touch throughout. PSYCH - A&Ox3 and cooperates fully with examiner. Pt is very pleasant and interacts well with examiner. Results & Data Results & Data ([facility]) Vital Signs (Past 12 Hours) Vital Signs Temp Pulse Resp BP Pulse Ox 03/16/20 00:02 35 L 20 98 03/16/20 00:00 35 L 24 157/59 H 98 03/15/20 23:31 36 L 15 191/69 H 93 03/15/20 23:30 38 L 16 97 03/15/20 23:07 37 L 17 99 03/15/20 23:06 41 L 16 168/62 H 99 03/15/20 23:05 38 L 12 100 03/15/20 23:01 34 L 16 159/60 H 99 03/15/20 23:00 36 L 17 98 03/15/20 22:55 33 L 15 98 03/15/20 22:50 36 L 17 100 03/15/20 22:45 34 L 13 100 03/15/20 22:40 36 L 16 100 03/15/20 22:39 41 L 21 100 03/15/20 22:24 36.4 C L 53 L 28 H 181/66 H 82 L Coding Level of Care Code Critical Care 1st 30-74 mins Diagnoses Admitted to intensive care unit Z78.9 Third degree heart block I44.2 CHF (congestive heart failure) I50.31 Heart failure chronicity: acute Heart failure type: diastolic Acute respiratory failure with hypoxemia J96.01 Hypertension I10 Uncontrolled type 2 diabetes mellitus E11.65 Chronic obstructive pulmonary disease J44.9 Hypercholesterolemia E78.00 Chronic kidney disease, stage III (moderate) N18.3 CAD, multiple vessel I25.10 Hypothyroidism E03.9 Hypothyroidism type: acquired MARJORIE (acute kidney injury) N17.9 Time Spent (min) 45 (1) CHF (congestive heart failure) Heart failure chronicity: acute Heart failure type: diastolic Qualified Code(s): I50.31 - Acute diastolic (congestive) heart failure (2) Hypothyroidism Hypothyroidism type: acquired Qualified Code(s): E03.9 - Hypothyroidism, unspecified
--- NOTE | 2020-03-16 02:42 | History & Physical Report ---
Date of Service March 16, 2020 Assessment & Plan (1) Admitted to intensive care unit: Patient is 80-year-old male with a past medical history as described below who presented to the emergency department on 03/15 with concerns for shortness of breath that has been ongoing since Thursday diagnosed with third-degree heart block currently status post temporary pacemaker placement #Status post temporary pacemaker placement secondary to third-degree heart block in the setting of a patient with a history of congestive heart failure, coronary artery disease, uncontrolled diabetes mellitus. Patient presented with HPI as above, was emergently rushed to the [facility] and a temporary pacer was placed by Dr. Woo. The procedure went well. The patient is now recovering in the ICU, will need consultation by EP tomorrow for permanent pacemaker placement. -Admitted to the ICU -Consult EP cardiology tomorrow for permanent pacemaker placement -Following interventional cardiology recommendations -Evaluate for reversible causes of heart block -Trend troponins -Hold beta-percy -Follow-up echo in the morning -Analgesia as indicated -N.p.o. overnight #Congestive heart failure Patient with longstanding history of it, on presentation BNP was 8000, congestive heart failure likely led to his current presentation. -Cardiology consulted following recommendations #History of coronary artery disease with stenting x3 -Cardiology consulted following recommendations #Acute respiratory failure with hypoxemia On presentation required oxygen to maintain saturations, currently requiring 4 L -As needed O2 as indicated #Hypertension Chronic problem, following cardiology recommendations -Cardiology consulted follow recommendations #Uncontrolled diabetes type 2 -Glycemic consult placed #COPD Does not appear to be on inhaler at baseline. -We will hold off on duo nebs given there beta agonist activity pending cardiology recommendations #History of BPH Noted monitor for urinary retention #History of tobacco use Likely contributing to her current presentation #History of abdominal aortic aneurysm Noted, nothing to do #Hypothyroidism -Continue levothyroxine 25 mcg FENa: N.p.o. overnight Code Status: Full code DVT PPX: Per cards PT/OT: At present not indicated Dispo: ICU Guillermo Monge MD PGY 2, FCM This chart was completed utilizing [employer] voice recognition software. Grammatical errors, random word insertions, pronoun errors, and in complete sentences are an occasional consequence of the system. Any questions or concerns about the content, text, or information contained within the body of this dictation should be addressed directly to the physician for clarification. (2) Third degree heart block: (3) CHF (congestive heart failure): (4) Acute respiratory failure with hypoxemia: (5) Tobacco use disorder: (6) Hypertension: (7) Uncontrolled type 2 diabetes mellitus: (8) Chronic obstructive pulmonary disease: (9) Chronic kidney disease, stage III (moderate): (10) CAD, multiple vessel: (11) Benign prostatic hyperplasia with elevated prostate specific antigen (PSA): (12) Aneurysm of abdominal aorta: Admission and Anticipated Discharge Date Admission Date: March 16, 2020 History of Present Illness Patient is 80-year-old male with a past medical history as described below who presented to the emergency department on 03/15 with concerns for shortness of breath that has been ongoing since Thursday. The patient believe it has been progressively getting worse with some associated chest and back tightness. Additionally he noticed increasing lower extremity swelling, denying any cough, fevers, chills, nausea, vomiting, diarrhea, other constitutional symptoms. Patient has no known Covid contacts or loss of taste or smell. Patient did not take anything at home for the symptoms, and reports them progressively getting worse. Patient is a former smoker, follows with Dr. Schaffer as an outpatient and says is compliant with his medications. He does have a prior history of CAD and with a history of stenting x3. On presentation to the emergency department,Routine labs were obtained indicating a white count of 12.81, with a neutrophil predominance, remainder the CBC was within normal limits, can 7 showed a creatinine of 2.27, and a glucose of 330, troponin of 0.062, BNP of 8000, beta hydroxybutyrate of 6.19, Covid test was negative. Chest x-ray demonstrated emphysematous changes and questionable cardiomegaly EKG demonstrated a ventricular escape rhythm with a rate of 35, wide QRS, indicating third-degree heart block. Given his slow heart rate a trial of atropine was attempted which did not result in improvement. On-call critical care registered nurse Dr. May reviewed the EKG and stated given the heart failure and associated heart block the patient would need a temporary pacemaker, heart code was called and the patient was taken to the [facility] for temporary pacer placement by Dr. Woo. The patient is now recovering in the ICU in no acute distress and will be consulted by cardiology for permanent pacemaker placement Upon assessing the patient in the ICU status post his procedure he was in cheerful spirits. Endorsing his pain was well controlled, he stated that occasionally will get a funny feeling in his chest with a deep inspiration. Otherwise the patient had no complaints. Patient reports voiding since his procedure, has not passed flatus or had a bowel movement. Answered all questions, no acute concerns. Primary Care Provider: Gene Calvo MD Allergies Allergy/AdvReac Type Severity Reaction Status Date / Time No Known Allergies Allergy Verified 03/15/20 23:43 Home Medications Medication Instructions Recorded Confirmed Type aspirin 81 mg PO Q OTHER DAY 05/23/18 03/15/20 History nitroglycerin [Nitrostat] 0.4 mg SUBLINGUAL UD PRN #1 btl 05/25/18 03/15/20 Rx hydralazine 25 mg tablet 25 mg PO TID #60 tab 05/16/19 03/15/20 Rx coenzyme Q10 [Co Q-10] 200 mg PO DAILY 05/31/19 03/15/20 History rosuvastatin 5 mg PO Q2D 05/31/19 03/15/20 History ezetimibe 10 mg tablet 10 mg PO DAILY #90 tab 07/07/19 03/15/20 Rx metoprolol succinate 25 mg 25 mg PO BID #60 tab 09/21/19 03/15/20 Rx tablet,extended release 24 hr levothyroxine 25 mcg tablet 25 mcg PO DAILY #90 tab 09/26/19 03/15/20 Rx pen needle, diabetic 32 gauge x #360 ea 11/17/19 02/13/20 Rx 5/32" alprazolam 0.5 mg tablet 0.5 mg PO DAILY #90 tab 01/16/20 03/15/20 Rx amlodipine 10 mg tablet 10 mg PO HS #90 tab 02/03/20 03/15/20 Rx clopidogrel 75 mg tablet 75 mg PO DAILY #90 tab 02/03/20 03/15/20 Rx insulin glargine 100 unit/mL (3 20 unit SUBCUT HS ml 02/13/20 03/15/20 History mL) subcutaneous pen insulin regular human 100 unit/mL 10 unit SUBCUT TID ml 02/13/20 03/15/20 History injection solution Past Med/Surg History Medical History Anemia Aneurysm of abdominal aorta Benign prostatic hyperplasia with elevated prostate specific antigen (PSA) CAD, multiple vessel Carotid artery stenosis, asymptomatic Chronic kidney disease Chronic kidney disease, stage III (moderate) Chronic obstructive pulmonary disease Diabetes mellitus, type 2 Diabetic nephropathy Diverticulitis of colon Edema Elevated PSA Enteritis Herpes zoster Hypercholesterolemia Hyperkalemia Hyperlipidemia Hypertension Male erectile disorder of organic origin Myocardial Infarction Panic disorder without agoraphobia Peripheral vascular disease Pre-operative exam Proteinuria Pulmonary nodule Steroid-induced hyperglycemia Tobacco use disorder Uncontrolled type 2 diabetes mellitus Surgical History H/O aortic aneurysm repair History of partial colectomy Stented coronary artery Family History Other COPD (chronic obstructive pulmonary disease) Diabetes mellitus type 1 Social History Smoking Status: Former smoker Cigarettes Per Day: 20; Second Hand Exposure: No; Hx Alcohol Use: No Hx Substance Use: No Preferred Language: Maltese Communication Ability: Effective Hearing Ability: Normal Supervisor Tunnel Heading Required: No Beliefs That Will Affect Care: None marital status: Current Living Situation: Spouse current occupation: Retired Other Information That Helps Us Care for You: No Feels Safe at Home: Yes Safety Concerns: Feels Safe At This Time caffeine: Yes Seatbelt Use: always Sunscreen Use: No Assistive Devices: Oxygen - Continuous Review of Systems Review of Systems: All systems reviewed & are unremarkable except as noted in HPI & below Physical Exam Physical Exam: General: Elderly gentleman in no acute distress HEENT: Normocephalic atraumatic Neck: Surgical site clean dry and intact on the right side of his neck, pacer wires in place, pacer active Cardiac: Externally paced rhythm at 60 bpm, I did not appreciate any abnormal murmurs rubs or gallops, 1+ pedal edema bilaterally, negative calf tenderness Respiratory: Clear to auscultation bilaterally with symmetrical chest expansion no increased work of breathing, I did not appreciate any significant wheezes, rales, rhonchi GI: Soft, nontender, nondistended all 4 quadrants MSK: Moves all extremities Skin: Cool dry and intact, surgical site clean dry and intact, no signs of bleeding Neuro: Alert and oriented x4 Psych: Calm and cooperative Results & Data Results & Data ([place]) Vital Signs (Past 12 Hours) Vital Signs Temp Pulse Resp BP Pulse Ox 03/16/20 00:02 35 L 20 98 03/16/20 00:00 35 L 24 157/59 H 98 03/15/20 23:31 36 L 15 191/69 H 93 03/15/20 23:30 38 L 16 97 03/15/20 23:07 37 L 17 99 03/15/20 23:06 41 L 16 168/62 H 99 03/15/20 23:05 38 L 12 100 03/15/20 23:01 34 L 16 159/60 H 99 03/15/20 23:00 36 L 17 98 03/15/20 22:55 33 L 15 98 03/15/20 22:50 36 L 17 100 03/15/20 22:45 34 L 13 100 03/15/20 22:40 36 L 16 100 03/15/20 22:39 41 L 21 100 03/15/20 22:24 36.4 C L 53 L 28 H 181/66 H 82 L Code Status & VTE Plan Code Status Full code VTE Prophylaxis Plan VTE Prophylaxis will be ordered: Yes Critical Care Time Critical Care Time: Yes Total Critical Care Time: 35 Supervising Physician Co-Signing Physician Notes Attending addendum: I have physically seen this patient, have supervised the medical residents activities, and agree with the H&P unless as otherwise noted. Assessment and Plan: Complete heart block/status post heart alert/temporary transvenous pacer placement by Dr. Woo- Admitted to ICU for follow-up care. Cardiology orders per Dr. Woo Consult Dr. Lopez regarding permanent pacer placement. Repeat laboratories in a.m. Remaining orders and notations as noted Resident Activity Tracking Resident Involvement: Resident Care Provided Care Provided: Adult Hospital Medicine (1) CHF (congestive heart failure) Heart failure chronicity: acute Heart failure type: diastolic Qualified Code(s): I50.31 - Acute diastolic (congestive) heart failure
[2020-03-16 04:21] LABS: Basophils # (auto) 0.06 K/uL (0-0.2); Basophils % (auto) 0.4 %; Eosinophils # (auto) 0.12 K/uL (0-0.5); Eosinophils % (auto) 0.8 %; Hematocrit (blood only) 43.3 % (42-52); Hemoglobin 14.6 g/dL (14.0-18.0); Immature Granulocytes # (auto) 0.05 K/uL (0.00-0.02); Immature Granulocytes % (auto) 0.3 %; Lymphocytes # (auto) 2.01 K/uL (1.2-3.4); Mean Corpuscular Hemoglobin 30.9 pg (25-34); Mean Corpuscular Hgb Conc 33.7 g/dL (32-36); Mean Corpuscular Volume 91.5 fL (80-100); Mean Platelet Volume 10.5 fL (7.4-10.4); Monocytes # (auto) 1.39 K/uL (0.11-0.59); Monocytes % (auto) 9.7 %; Neutrophils # (auto) 10.76 K/uL (1.4-6.5); Neutrophils % (auto) 74.8 %; Platelet Count 277 K/uL (130-400); RDW Coefficient of Variation 14.5 % (11.5-14.5); RDW Standard Deviation 48.5 fL (36.4-46.3); Red Blood Count 4.73 M/uL (4.7-6.1); White Blood Count 14.39 K/uL (4.8-10.8)
[2020-03-16 04:35] LABS: Appearance Urine Clear (Clear); Bacteria Urine Automated Negative (Negative); Bilirubin Urine Negative (Negative); Blood Urine Negative (Negative); Color Urine Yellow; Epithelial Cell Urine Auto 0-5 /lpf (0-5); Glucose Urine UA Negative (Negative); Ketones Urine Negative (Negative); Leukocyte Esterase Urine Negative (Negative); Nitrite Urine Negative (Negative); Protein Urine 1+ (Negative); RBC Urine Automated 0-4 /hpf (0-4); Specific Gravity Urine 1.012 (1.000-1.030); Urobilinogen Urine Negative (Negative); WBC Urine Automated 0 /hpf (0-5)
[2020-03-16 04:39] LABS: BUN Creatinine Ratio 24.2 (10-20); Calcium 8.9 mg/dl (8.5-10.1); Creatinine Clr Calc Pharmacy 33.3 ml/min; Est GFR (African American) 34.8; Magnesium 2.1 mg/dl (1.8-2.4); Potassium 4.5 mmol/L (3.5-5.1)
[2020-03-16] MEDS: LEVOTHYROXINE SODIUM 25 MCG TABLET PO SCH (04:53)
[2020-03-16 04:55] LABS: Phosphorus 3.3 mg/dl (2.5-4.9); T4 Free Thyroxine 1.05 ng/dl (0.8-1.6); Thyroid Stimulating Hormone 3.35 uIu/ml (0.300-4.500); Troponin I 0.286 ng/ml (0-0.045)
[2020-03-16 05:51] LABS: Lyme Ab IgG w/WB Rflx Negative (Negative); Lyme Ab IgM w/WB Rflx Negative (Negative)
[2020-03-16 06:00] LABS: iSTAT Hemoglobin 14.3 g/dl (14.0-18.0); iSTAT Ionized Calcium 1.12 mmol/l (1.12-1.32)
--- NOTE | 2020-03-16 07:01 | XRay Report ---
XR chest 1V portable CLINICAL HISTORY: SEPSIS COMPARISON STUDY: June 01, 2019 FINDINGS: The heart is borderline enlarged. There is elevation of interstitium. Diagnostic considerat ions include pulmonary edema versus a bilateral interstitial infectious/inflammatory process. Clinica l and radiographic follow-up is recommended. There is no lobar consolidation. There are no significan t pleural effusions.[ IMPRESSION: 1. Diffuse elevation of the interstitium. While pulmonary edema is favored, a bilateral interstitial infectious/inflammatory process cannot be excluded. ACT 112: Negative or not required by law. Electronically signed by: Xavier Carroll M.D. 03/16/2020 6:59 AM
[2020-03-16] MEDS: ALPRAZolam 0.5 MG TABLET PO SCH (08:24)
--- NOTE | 2020-03-16 10:19 | Communication Note ---
Date of Service: March 16, 2020 Patient on 5 L oxygen has known diagnosis of COPD and has twice been recommended home oxygen and refused. Awaiting pacemaker/evaluation by [facility] cardiology Giving additional dose of Lasix 40 mg IV x1 today Patient was discussed in multidisciplinary rounds I have personally spent 40 minutes of critical care time in the direct management of this patient. This is a life/limb threatening event. This includes time spent evaluating patient, direct bedside care, chart review, placing orders, interpretation of diagnostic studies, discussion with consultants, patient, and/or family members regarding treatment decisions, as well as other required patient management activities. This time is exclusive of all separately billable procedures, and teaching time and separate from and in addition to any other critical care service time. Coding Level of Care Code Critical Care ammon addt'l 30 min
[2020-03-16] MEDS ORDERED: FUROSEMIDE 40 MG in SYRINGE 0 ML IV ONE (10:30)
--- NOTE | 2020-03-16 12:21 | Cardiology Consultation ---
Date of Consultation He started feeling poorly on Thursday. Walking 50 feet he had significant shortness of breath and felt like he had no get up and go. When he sat down it resolved but he notes on Thursday and it became more progressive to the point that he was incredibly weak and lightheaded with any bit of activity. He denies any chest pain or chest pressure. Denies any shortness of breath lying in bed. He is not lightheaded or dizzy laying in bed currently. He has no lower extremity edema. Denies any orthopnea. He does have some mild bleeding and bruising on dual antiplatelet therapy which is chronic. He notes he just wants to get the pacemaker put in so we can go home as soon as possible and get his morning coffee. He denies any palpitations or fluttering currently. PHYSICAL EXAMINATION: GENERAL: He is awake, alert, oriented x3. He is currently pain free and appears comfortable. HEENT: He has bilateral carotid bruits and therefore I did not palpate his carotid upstrokes. He also has bilateral bruits radiating out along his clavicles. His jugular venous pressure appeared normal. His sclerae is anicteric. His hearing is normal. LUNGS: Globally decreased breath sounds. No rales, rhonchi, or wheezing. HEART: Regular rate and rhythm ( Paced). There is a soft systolic ejection murmur at the right sternal border. ABDOMEN: Soft, nontender, nondistended. Positive bowel sounds. EXTREMITIES: No clubbing, cyanosis, or edema. PSYCHIATRIC: His affect appeared appropriate. Neurologic: He is awake alert and oriented x3 and moving all extremities IMPRESSION: 1. Complete heart block with a right bundle branch block left posterior fascicular block morphology with a ventricular escape rhythm at 35 bpm; baseline EKG is a right bundle branch block with left anterior fascicular block 1B. Normal left ventricular systolic function by echo within the last year in the [facility] system 2. Known coronary artery disease with prior angioplasty and stenting of the left anterior descending and the right coronary artery; cardiac catheterization June 2018 with patent RCA and LAD stents status post drug-eluting stent to the mid circumflex with plan will balloon angioplasty at the bifurcation of OM 2 3. 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 4. Status post PEVAR 5. Celiac and superior mesenteric artery stenosis. 6. History of bilateral renal artery stenosis status post stenting with progressive stenosis. 7. Diabetes mellitus type 2. We did turn his pacemaker down to 40 bpm he remains in complete heart block. He has no [place] conduction at 40 bpm. Given his complex cardiovascular disease and the fact that he has high degree AV block and the fact he needs to be on beta-blockers we discussed the risks and benefits of dual-chamber pacemaker. We discussed the risks and benefits in detail. We discussed bleeding or infection at the puncture site damage to his subclavian vein, risk of pneumothorax, risk of poking a hole in his heart requiring emergent draining of a pericardial effusion, infection, stroke and even . He understands the risks and wishes to proceed All this was discussed with Dr. Lu by phone. He has been n.p.o. we will plan to place his pacemaker hopefully this afternoon he could be discharged tomorrow. Dr. Lu can do his wound check post implant and then we will arrange for him to be seen in the [place] [facility] thereafter. All this was discussed with the nursing staff March 16, 2020 History of Present Illness Attending Physician: Darin Torres DO Allergies Allergy/AdvReac Type Severity Reaction Status Date / Time No Known Allergies Allergy Verified 03/15/20 23:43 Home Medications Medication Instructions Recorded Confirmed Type aspirin 81 mg PO Q OTHER DAY 05/23/18 03/15/20 History nitroglycerin [Nitrostat] 0.4 mg SUBLINGUAL UD PRN #1 btl 05/25/18 03/15/20 Rx hydralazine 25 mg tablet 25 mg PO TID #60 tab 05/16/19 03/15/20 Rx coenzyme Q10 [Co Q-10] 200 mg PO DAILY 05/31/19 03/15/20 History rosuvastatin 5 mg PO Q2D 05/31/19 03/15/20 History ezetimibe 10 mg tablet 10 mg PO DAILY #90 tab 07/07/19 03/15/20 Rx metoprolol succinate 25 mg 25 mg PO BID #60 tab 09/21/19 03/15/20 Rx tablet,extended release 24 hr levothyroxine 25 mcg tablet 25 mcg PO DAILY #90 tab 09/26/19 03/15/20 Rx pen needle, diabetic 32 gauge x #360 ea 11/17/19 02/13/20 Rx 5/32" alprazolam 0.5 mg tablet 0.5 mg PO DAILY #90 tab 01/16/20 03/15/20 Rx amlodipine 10 mg tablet 10 mg PO HS #90 tab 02/03/20 03/15/20 Rx clopidogrel 75 mg tablet 75 mg PO DAILY #90 tab 02/03/20 03/15/20 Rx insulin glargine 100 unit/mL (3 20 unit SUBCUT HS ml 02/13/20 03/15/20 History mL) subcutaneous pen insulin regular human 100 unit/mL 10 unit SUBCUT TID ml 02/13/20 03/15/20 History injection solution Patient History Medical History Anemia Aneurysm of abdominal aorta Benign prostatic hyperplasia with elevated prostate specific antigen (PSA) CAD, multiple vessel Carotid artery stenosis, asymptomatic Chronic kidney disease Chronic kidney disease, stage III (moderate) Chronic obstructive pulmonary disease Diabetes mellitus, type 2 Diabetic nephropathy Diverticulitis of colon Edema Elevated PSA Enteritis Herpes zoster Hypercholesterolemia Hyperkalemia Hyperlipidemia Hypertension Male erectile disorder of organic origin Myocardial Infarction Panic disorder without agoraphobia Peripheral vascular disease Pre-operative exam Proteinuria Pulmonary nodule Steroid-induced hyperglycemia Tobacco use disorder Uncontrolled type 2 diabetes mellitus Surgical History H/O aortic aneurysm repair History of partial colectomy Stented coronary artery Family History Other COPD (chronic obstructive pulmonary disease) Diabetes mellitus type 1 Social History Smoking Status: Former smoker Cigarettes Per Day: 20; Second Hand Exposure: No; Hx Alcohol Use: No Hx Substance Use: No Preferred Language: Fijian Communication Ability: Effective Hearing Ability: Normal Car Sales Associate Required: No Beliefs That Will Affect Care: None marital status: Current Living Situation: Spouse current occupation: Retired Other Information That Helps Us Care for You: No Feels Safe at Home: Yes Safety Concerns: Feels Safe At This Time caffeine: Yes Seatbelt Use: always Sunscreen Use: No Assistive Devices: None and Glasses Results & Data ([facility]) Vital Signs (Past 12 Hours) Vital Signs Temp Pulse Pulse Resp BP BP Pulse Ox 03/16/20 06:00 61 14 140/76 97 03/16/20 05:57 60 148/73 H 03/16/20 05:55 62 154/76 H 03/16/20 05:53 63 140/79 03/16/20 05:50 64 130/76 93 03/16/20 05:47 60 115/72 94 03/16/20 05:45 63 130/70 95 03/16/20 05:42 64 143/75 H 93 03/16/20 05:40 61 119/86 93 03/16/20 05:37 61 137/71 93 03/16/20 05:35 60 135/69 93 03/16/20 05:32 60 133/70 93 03/16/20 05:30 60 16 129/84 93 03/16/20 05:27 60 122/73 94 03/16/20 05:25 62 117/71 93 03/16/20 05:22 61 126/74 93 03/16/20 05:20 60 113/69 93 03/16/20 05:17 60 127/69 93 03/16/20 05:15 60 118/70 92 03/16/20 05:12 61 131/67 92 03/16/20 05:09 60 109/73 91 03/16/20 05:07 60 103/70 90 03/16/20 05:04 60 111/71 91 03/16/20 05:02 60 116/82 91 03/16/20 05:01 60 91 03/16/20 05:00 16 92 03/16/20 04:59 61 115/71 92 03/16/20 04:57 61 116/74 91 03/16/20 04:55 60 108/66 91 03/16/20 04:52 60 120/75 92 03/16/20 04:49 60 136/70 92 03/16/20 04:47 61 120/65 91 03/16/20 04:44 63 107/65 92 03/16/20 04:42 60 127/72 92 03/16/20 04:39 60 122/72 93 03/16/20 04:37 61 112/65 93 03/16/20 04:34 61 110/67 94 03/16/20 04:32 60 128/74 94 03/16/20 04:30 16 99 03/16/20 04:29 64 122/78 94 03/16/20 04:27 60 101/72 95 03/16/20 04:24 60 131/74 94 03/16/20 04:22 60 113/71 95 03/16/20 04:19 60 153/74 H 94 03/16/20 04:17 60 146/78 H 93 03/16/20 04:14 60 159/73 H 92 03/16/20 04:12 62 110/94 92 03/16/20 04:09 36.7 C 61 129/73 94 03/16/20 04:07 60 150/91 H 90 03/16/20 04:04 66 145/65 H 93 03/16/20 04:01 60 131/71 93 03/16/20 04:00 16 98 03/16/20 03:59 60 121/72 91 03/16/20 03:30 16 98 03/16/20 03:01 03/16/20 03:00 16 98 03/16/20 02:30 16 98 03/16/20 02:22 36.7 C 60 16 152/67 H 98 Pulse Ox 03/16/20 06:00 03/16/20 05:57 03/16/20 05:55 03/16/20 05:53 03/16/20 05:50 03/16/20 05:47 03/16/20 05:45 03/16/20 05:42 03/16/20 05:40 03/16/20 05:37 03/16/20 05:35 03/16/20 05:32 03/16/20 05:30 03/16/20 05:27 03/16/20 05:25 03/16/20 05:22 03/16/20 05:20 03/16/20 05:17 03/16/20 05:15 03/16/20 05:12 03/16/20 05:09 03/16/20 05:07 03/16/20 05:04 03/16/20 05:02 03/16/20 05:01 03/16/20 05:00 03/16/20 04:59 03/16/20 04:57 03/16/20 04:55 03/16/20 04:52 03/16/20 04:49 03/16/20 04:47 03/16/20 04:44 03/16/20 04:42 03/16/20 04:39 03/16/20 04:37 03/16/20 04:34 03/16/20 04:32 03/16/20 04:30 03/16/20 04:29 03/16/20 04:27 03/16/20 04:24 03/16/20 04:22 03/16/20 04:19 03/16/20 04:17 03/16/20 04:14 03/16/20 04:12 03/16/20 04:09 03/16/20 04:07 03/16/20 04:04 03/16/20 04:01 03/16/20 04:00 03/16/20 03:59 03/16/20 03:30 03/16/20 03:01 98 03/16/20 03:00 03/16/20 02:30 03/16/20 02:22
--- NOTE | 2020-03-16 12:51 | History & Physical Bridge Note ---
Date of Service March 16, 2020 History & Physical Bridge Note I have examined the patient, reviewed the History & Physical and in the interval since the performance of the History & Physical I have noted the following changes of clinical significance: no changes noted. I reviewed the indications, procedure, risks and alternatives with the patient, answered all questions. Consent obtained. Patient understands and agrees to the procedure. I also reviewed the risks and use of sedation, patient understands and consent obtained.
[2020-03-16] MEDS ORDERED: BACITRACIN OINT 0.9 GM PKT ONE (13:12)
[2020-03-16] MEDS: INSULIN ASPART 100 UNITS/ML 3 ML PEN SC SCH ×3 (13:12→20:44)
[2020-03-16] MEDS ORDERED: LIDOCAINE HCL 1% 20 ML VIAL ONE (13:12)
[2020-03-16] MEDS ORDERED: BACITRACIN INJ 50,000 UNIT VIAL ONE (13:14)
--- NOTE | 2020-03-16 13:21 | Pre Anesthesia Assessment ---
Date of Service March 16, 2020 Pre Sedation Assessment Vital Signs Temp Pulse Pulse Resp BP BP Pulse Ox 03/16/20 08:00 60 03/16/20 06:00 61 14 140/76 97 03/16/20 05:57 60 148/73 H 03/16/20 05:55 62 154/76 H 03/16/20 05:53 63 140/79 03/16/20 05:50 64 130/76 93 03/16/20 05:47 60 115/72 94 03/16/20 05:45 63 130/70 95 03/16/20 05:42 64 143/75 H 93 03/16/20 05:40 61 119/86 93 03/16/20 05:37 61 137/71 93 03/16/20 05:35 60 135/69 93 03/16/20 05:32 60 133/70 93 03/16/20 05:30 60 16 129/84 93 03/16/20 05:27 60 122/73 94 03/16/20 05:25 62 117/71 93 03/16/20 05:22 61 126/74 93 03/16/20 05:20 60 113/69 93 03/16/20 05:17 60 127/69 93 03/16/20 05:15 60 118/70 92 03/16/20 05:12 61 131/67 92 03/16/20 05:09 60 109/73 91 03/16/20 05:07 60 103/70 90 03/16/20 05:04 60 111/71 91 03/16/20 05:02 60 116/82 91 03/16/20 05:01 60 91 03/16/20 05:00 16 92 03/16/20 04:59 61 115/71 92 03/16/20 04:57 61 116/74 91 03/16/20 04:55 60 108/66 91 03/16/20 04:52 60 120/75 92 03/16/20 04:49 60 136/70 92 03/16/20 04:47 61 120/65 91 03/16/20 04:44 63 107/65 92 03/16/20 04:42 60 127/72 92 03/16/20 04:39 60 122/72 93 03/16/20 04:37 61 112/65 93 03/16/20 04:34 61 110/67 94 03/16/20 04:32 60 128/74 94 03/16/20 04:30 16 99 03/16/20 04:29 64 122/78 94 03/16/20 04:27 60 101/72 95 03/16/20 04:24 60 131/74 94 03/16/20 04:22 60 113/71 95 03/16/20 04:19 60 153/74 H 94 03/16/20 04:17 60 146/78 H 93 03/16/20 04:14 60 159/73 H 92 03/16/20 04:12 62 110/94 92 03/16/20 04:09 36.7 C 61 129/73 94 03/16/20 04:07 60 150/91 H 90 03/16/20 04:04 66 145/65 H 93 03/16/20 04:01 60 131/71 93 03/16/20 04:00 16 98 03/16/20 03:59 60 121/72 91 03/16/20 03:30 16 98 03/16/20 03:01 03/16/20 03:00 16 98 03/16/20 02:30 16 98 03/16/20 02:22 36.7 C 60 16 152/67 H 98 03/16/20 00:02 35 L 20 98 03/16/20 00:00 35 L 24 157/59 H 98 03/15/20 23:31 36 L 15 191/69 H 93 03/15/20 23:30 38 L 16 97 03/15/20 23:07 37 L 17 99 03/15/20 23:06 41 L 16 168/62 H 99 03/15/20 23:05 38 L 12 100 03/15/20 23:01 34 L 16 159/60 H 99 03/15/20 23:00 36 L 17 98 03/15/20 22:55 33 L 15 98 03/15/20 22:50 36 L 17 100 03/15/20 22:45 34 L 13 100 03/15/20 22:40 36 L 16 100 03/15/20 22:39 41 L 21 100 03/15/20 22:24 36.4 C L 53 L 28 H 181/66 H 82 L Pulse Ox 03/16/20 08:00 03/16/20 06:00 03/16/20 05:57 03/16/20 05:55 03/16/20 05:53 03/16/20 05:50 03/16/20 05:47 03/16/20 05:45 03/16/20 05:42 03/16/20 05:40 03/16/20 05:37 03/16/20 05:35 03/16/20 05:32 03/16/20 05:30 03/16/20 05:27 03/16/20 05:25 03/16/20 05:22 03/16/20 05:20 03/16/20 05:17 03/16/20 05:15 03/16/20 05:12 03/16/20 05:09 03/16/20 05:07 03/16/20 05:04 03/16/20 05:02 03/16/20 05:01 03/16/20 05:00 03/16/20 04:59 03/16/20 04:57 03/16/20 04:55 03/16/20 04:52 03/16/20 04:49 03/16/20 04:47 03/16/20 04:44 03/16/20 04:42 03/16/20 04:39 03/16/20 04:37 03/16/20 04:34 03/16/20 04:32 03/16/20 04:30 03/16/20 04:29 03/16/20 04:27 03/16/20 04:24 03/16/20 04:22 03/16/20 04:19 03/16/20 04:17 03/16/20 04:14 03/16/20 04:12 03/16/20 04:09 03/16/20 04:07 03/16/20 04:04 03/16/20 04:01 03/16/20 04:00 03/16/20 03:59 03/16/20 03:30 03/16/20 03:01 98 03/16/20 03:00 03/16/20 02:30 03/16/20 02:22 03/16/20 00:02 03/16/20 00:00 03/15/20 23:31 03/15/20 23:30 03/15/20 23:07 03/15/20 23:06 03/15/20 23:05 03/15/20 23:01 03/15/20 23:00 03/15/20 22:55 03/15/20 22:50 03/15/20 22:45 03/15/20 22:40 03/15/20 22:39 03/15/20 22:24 Cardiovascular RRR, no murmur, no edema Respiratory normal respiratory effort, lungs clear to auscultation Pre-Sedation Airway Assessment Smoking Status: Former smoker Hx Sleep Apnea: No Hx Difficult Intubation: No Short, Thick Neck: No Thyromental Distance: > or= 3.5 Finger Breadths Oral Cavity: + Dental Abnormalities Mallampati Class: III ASA: ASA3 NPO Status Date of Last Intake of Fluids: 03/15/20 Date of Last Intake of Solid Food: 03/15/20 Procedure Planning Contraindications for Sedation: none Current Medications Reviewed: Yes Notes The planned sedation has been discussed with the patient. Informed Consent was obtained. I have identified the patient, determined the appropriateness of sedation and have assessed the patient immediately prior to the procedure. All medicine(s) and interventions are by my order.
[2020-03-16] MEDS ORDERED: MIDAZOLAM HCL 5 MG/ML 1 ML VIAL ONE (13:23)
[2020-03-16] MEDS ORDERED: fentaNYL citrate 100 MCG/2 ML VIAL ONE (13:23)
--- NOTE | 2020-03-16 13:28 | XCELERA ---
[id number]
--- NOTE | 2020-03-16 14:33 | Electrocardiogram Report ---
Test Reason : Blood Pressure : / mmHG Vent. Rate : 035 BPM Atrial Rate : 101 BPM P-R Int : 000 ms QRS Dur : 152 ms QT Int : 560 ms P-R-T Axes : 000 117 -48 degrees QTc Int : 427 ms Sinus rhythm with complete heart block Idioventricular rhythm with Premature ventricular complexes or Fusion complexes Right bundle branch block T wave abnormality, consider inferolateral ischemia Abnormal ECG When compared with ECG of 01-JUN-2019 06:44, Significant changes have occurred Confirmed by Christiano Suárez ([id number]) on 03/16/2020 2:32:58 PM Referred By: REFERRED SELF Confirmed By:Christiano Suárez
--- NOTE | 2020-03-16 14:40 | Electrophysiology Report ---
Date of Service March 16, 2020 Electrophysiology Procedure Electrophysiology Procedure Report Preoperative diagnosis: Complete heart block Postoperative diagnosis: Same Procedure: Dual-chamber pacemaker implantation Surgeon: Ford Lopez MD Estimated blood loss: 20 cc Complications: None Disposition: Travel Sales Consultant recovery Procedure details: After obtaining informed consent for the procedure, the patient was brought to the laboratory and prepped and draped in the standard s terile manner. The left prepectoral region was anesthetized with 1% lidocaine local anesthetic and left axillary venipuncture was performed by percutaneous technique and a guidewire placed through the left subclavian vein into the superior vena cava. The area was further infiltrated with 1% lidocaine local anesthetic and a 5 cm incision was made parallel to the left clavicle and 2 cm below it and carried down to the anterior pectoralis fascia. A pacemaker pocket was formed by blunt dissection anterior to the pectoralis fascia and a bacitracin-soaked sponge (50,000 units in 50 cc normal saline solution) was placed in the pocket. An 8 [place] Med[employer]onic lead introducer was placed over the guidewire into the left subclavian vein, the dilator and guidewire were removed and a bipolar active fixation steroid tipped ventricular lead was advanced through the introducer into the superior vena cava. A guidewire was placed through the introducer and the introducer was stripped from the lead and guidewire. Another 8 [place] Med[employer]onic lead introducer was placed over the guidewire into the left subclavian vein, the dilator and guidewire were removed and a bipolar active fixation steroid tipped atrial lead was advanced through the introducer into the superior vena cava. A guidewire was placed back through the introducer and the introducer was stripped from the lead and guidewire. Using a curved stylette the ventricular lead was advanced through the right ventricular outflow tract into the pulmonary artery and then using a straight stylette was positioned in the right ventricular apex. The screw was extended fixing the lead in position. Pacing and sensing thresholds were evaluated in bipolar configuration and are recorded on the implant data sheet. Using a curved stylette the atrial lead was positioned in the region of the atrial appendage and the screw extended fixing the lead in position. Pacing and sensing thresholds were evaluated in bipolar configuration and are recorded on the implant data sheet. Once the leads were in position they were attached to the anterior pectoralis fascia using 2 sutures of 2-0 silk around each lead collar. The bacitracin- soaked sponge was removed from the pocket, hemostasis was obtained, the pacemaker was attached to the leads and placed in the pocket with the leads coiled beneath it. The incision was closed with a running double subcutaneous closure of 3-0 Vicryl absorbable suture, followed by running subcuticular skin closure of 4-0 Vicryl absorbable suture. Bacitracin ointment was placed on the incision and a pressure dressing applied. [facility] Electrophysiology codes Pacing Procedure 1: Pacin Insert/Replace Pacer A & V PG Moderate Sedation Codes Moderate Sedation Codes Procedure 1: Sedation/Anesthesia: 92508 Mod Sedation by the same physician;Init15 Min Child Age 5 & Up Procedure 2: Sedation/Anesthesia: 75052 Mod Sedation by the same physician; Ea [id number] Minutes
[2020-03-16] MEDS ORDERED: KETOROLAC TROMETHAMINE 10 MG TABLET PO PRN (14:41)
[2020-03-16] MEDS ORDERED: ACETAMINOPHEN 325 MG TAB PO PRN (14:41)
--- NOTE | 2020-03-16 14:56 | Post Anesthesia Assessment ---
Date of Service March 16, 2020 Post Sedation Assessment Vital Signs Temp Pulse Pulse Resp BP BP Pulse Ox 03/16/20 14:48 64 20 144/80 H 95 03/16/20 14:33 61 20 132/79 94 03/16/20 08:00 60 03/16/20 06:00 61 14 140/76 97 03/16/20 05:57 60 148/73 H 03/16/20 05:55 62 154/76 H 03/16/20 05:53 63 140/79 03/16/20 05:50 64 130/76 93 03/16/20 05:47 60 115/72 94 03/16/20 05:45 63 130/70 95 03/16/20 05:42 64 143/75 H 93 03/16/20 05:40 61 119/86 93 03/16/20 05:37 61 137/71 93 03/16/20 05:35 60 135/69 93 03/16/20 05:32 60 133/70 93 03/16/20 05:30 60 16 129/84 93 03/16/20 05:27 60 122/73 94 03/16/20 05:25 62 117/71 93 03/16/20 05:22 61 126/74 93 03/16/20 05:20 60 113/69 93 03/16/20 05:17 60 127/69 93 03/16/20 05:15 60 118/70 92 03/16/20 05:12 61 131/67 92 03/16/20 05:09 60 109/73 91 03/16/20 05:07 60 103/70 90 03/16/20 05:04 60 111/71 91 03/16/20 05:02 60 116/82 91 03/16/20 05:01 60 91 03/16/20 05:00 16 92 03/16/20 04:59 61 115/71 92 03/16/20 04:57 61 116/74 91 03/16/20 04:55 60 108/66 91 03/16/20 04:52 60 120/75 92 03/16/20 04:49 60 136/70 92 03/16/20 04:47 61 120/65 91 03/16/20 04:44 63 107/65 92 03/16/20 04:42 60 127/72 92 03/16/20 04:39 60 122/72 93 03/16/20 04:37 61 112/65 93 03/16/20 04:34 61 110/67 94 03/16/20 04:32 60 128/74 94 03/16/20 04:30 16 99 03/16/20 04:29 64 122/78 94 03/16/20 04:27 60 101/72 95 03/16/20 04:24 60 131/74 94 03/16/20 04:22 60 113/71 95 03/16/20 04:19 60 153/74 H 94 03/16/20 04:17 60 146/78 H 93 03/16/20 04:14 60 159/73 H 92 03/16/20 04:12 62 110/94 92 03/16/20 04:09 36.7 C 61 129/73 94 03/16/20 04:07 60 150/91 H 90 03/16/20 04:04 66 145/65 H 93 03/16/20 04:01 60 131/71 93 03/16/20 04:00 16 98 03/16/20 03:59 60 121/72 91 03/16/20 03:30 16 98 03/16/20 03:01 03/16/20 03:00 16 98 03/16/20 02:30 16 98 03/16/20 02:22 36.7 C 60 16 152/67 H 98 03/16/20 00:02 35 L 20 98 03/16/20 00:00 35 L 24 157/59 H 98 03/15/20 23:31 36 L 15 191/69 H 93 03/15/20 23:30 38 L 16 97 03/15/20 23:07 37 L 17 99 03/15/20 23:06 41 L 16 168/62 H 99 03/15/20 23:05 38 L 12 100 03/15/20 23:01 34 L 16 159/60 H 99 03/15/20 23:00 36 L 17 98 03/15/20 22:55 33 L 15 98 03/15/20 22:50 36 L 17 100 03/15/20 22:45 34 L 13 100 03/15/20 22:40 36 L 16 100 03/15/20 22:39 41 L 21 100 03/15/20 22:24 36.4 C L 53 L 28 H 181/66 H 82 L Pulse Ox 03/16/20 14:48 03/16/20 14:33 03/16/20 08:00 03/16/20 06:00 03/16/20 05:57 03/16/20 05:55 03/16/20 05:53 03/16/20 05:50 03/16/20 05:47 03/16/20 05:45 03/16/20 05:42 03/16/20 05:40 03/16/20 05:37 03/16/20 05:35 03/16/20 05:32 03/16/20 05:30 03/16/20 05:27 03/16/20 05:25 03/16/20 05:22 03/16/20 05:20 03/16/20 05:17 03/16/20 05:15 03/16/20 05:12 03/16/20 05:09 03/16/20 05:07 03/16/20 05:04 03/16/20 05:02 03/16/20 05:01 03/16/20 05:00 03/16/20 04:59 03/16/20 04:57 03/16/20 04:55 03/16/20 04:52 03/16/20 04:49 03/16/20 04:47 03/16/20 04:44 03/16/20 04:42 03/16/20 04:39 03/16/20 04:37 03/16/20 04:34 03/16/20 04:32 03/16/20 04:30 03/16/20 04:29 03/16/20 04:27 03/16/20 04:24 03/16/20 04:22 03/16/20 04:19 03/16/20 04:17 03/16/20 04:14 03/16/20 04:12 03/16/20 04:09 03/16/20 04:07 03/16/20 04:04 03/16/20 04:01 03/16/20 04:00 03/16/20 03:59 03/16/20 03:30 03/16/20 03:01 98 03/16/20 03:00 03/16/20 02:30 03/16/20 02:22 03/16/20 00:02 03/16/20 00:00 03/15/20 23:31 03/15/20 23:30 03/15/20 23:07 03/15/20 23:06 03/15/20 23:05 03/15/20 23:01 03/15/20 23:00 03/15/20 22:55 03/15/20 22:50 03/15/20 22:45 03/15/20 22:40 03/15/20 22:39 03/15/20 22:24 Recovery Score Activity: Moves 4 extremities Respiration: Deep Breath/Cough Circulation: +/-20% PreAnes Value Consciousness: Fully Awake Oxygen Saturation: > 92% On Room Air Post Anesthesia Score: 10 Discharge Sedation Level of Care: Fast Track Phase II Post Sedation Plan On clinical assessment, the patient appears to have tolerated the sedation without complications. Patient is recovering as anticipated. Patient will continue to be monitored by nursing and may be discharged when sedation discharge criteria are met per below protocol. Upon Completions of procedure up to 15 minutes continue every 5 minute vital signs and the P.A.R. score; then discharge to a Phase I or Fast Track to Phase II per the following guidelines: * Discharge Patient to appropriate Phase II area if PAR is 8 or greater or return to pre- procedure baseline. The post - procedure orders will be as directed. * If PAR score is less than 8 or not return to pre-procedure baseline then patient will follow Phase I monitoring till PAR is reached for Phase II. The Phase I may be done in procedure room or may call to secure a Phase I area. * If naloxone or flumazenil are used for reversal, hold in Phase I for continued monitoring from when last reversal dose was given for a minimum of 60 minutes or longer pending the nurse and/or physician discretion of patient condition before discharge to Phase II. Please call the Sedation Physician to re-evaluate and complete post-note for discharge to Phase II area. Do NOT discharge from procedure sedation or Phase 1 until post- sedation evaluation note is complete by procedure /sedation MD Sedation Discharge Instructions to be given to the patient at discharge to home.
--- NOTE | 2020-03-16 15:42 | Electrocardiogram Report ---
Test Reason : Blood Pressure : / mmHG Vent. Rate : 067 BPM Atrial Rate : 067 BPM P-R Int : 190 ms QRS Dur : 178 ms QT Int : 494 ms P-R-T Axes : 039 -79 097 degrees QTc Int : 521 ms Atrial-sensed ventricular-paced rhythm Abnormal ECG When compared with ECG of 15-MAR-2020 22:52, Electronic ventricular pacemaker now present Confirmed by Christiano Suárez ([id number]) on 03/16/2020 3:41:51 PM Referred By: REFERRED SELF Confirmed By:Christiano Suárez
--- NOTE | 2020-03-16 15:46 | Hospitalist Progress Note ---
Date of Service March 16, 2020 Assessment & Plan (1) Admitted to intensive care unit: Patient is an 80-year-old male with a PMHx of CHF, CAD, uncontrolled DM, CKD stage 3, HTN, COPD, BPH, AAA, and hypothyroidism who presented to the emergency department on 03/15/20 with concerns for shortness of breath that had been ongoing for a couple days and subsequently diagnosed with complete heart block currently s/p temporary pacemaker placement. Complete Heart Block - s/p temporary pacemaker placement overnight 03/15-03/16 - Following interventional cardiology recommendations: Evaluate for reversible causes of heart block; Trend troponins; Hold beta-percy; Follow-up echo in the morning - TTE 03/16/20: left ventricular systolic junction is normal. No regional wall motion abnormalities noted. There is borderline concentric LVH. LVEF 55-60%. There is mild mitral regurgitation. Compared with study dated 06/01/19 there is no significant change. - Analgesia as indicated - Cardiology consult - Patient admitted to ICU; under care of art gallery director at the current time - Plan for permanent pacemaker placement this afternoon Diastolic CHF - Patient with longstanding history of it, on presentation BNP was 8000 - Cardiology consulted following recommendations History of coronary artery disease with stenting x3 - Cardiology consulted following recommendations Acute respiratory failure with hypoxemia - On presentation required oxygen to maintain saturations - Supplemental O2 as indicated Hypertension - Chronic problem, following cardiology recommendations Uncontrolled diabetes type 2 - Glycemic consult placed COPD - Does not appear to be on inhaler at baseline. - We will hold off on duo nebs given there beta agonist activity pending cardiology recommendations History of BPH - Noted monitor for urinary retention History of tobacco use - Encourage smoking cessation Hypothyroidism - Continue levothyroxine 25 mcg FENa: NPO at this time pending permanent pacemaker placement Code Status: Full code DVT PPX: Per cardiology PT/OT: At present not indicated Dispo: ICU (2) Third degree heart block: (3) CHF (congestive heart failure): (4) Acute respiratory failure with hypoxemia: (5) Tobacco use disorder: (6) Hypertension: (7) Uncontrolled type 2 diabetes mellitus: (8) Chronic obstructive pulmonary disease: (9) Chronic kidney disease, stage III (moderate): (10) CAD, multiple vessel: (11) Benign prostatic hyperplasia with elevated prostate specific antigen (PSA): (12) Aneurysm of abdominal aorta: Admission and Anticipated Discharge Date Admission Date: March 16, 2020 Supervising Physician Co-Signing Physician Notes I personally examined the patient and verified all lamar points of history and exam, discussed case, and agree with decision making with Dr Herrera. feeling ok breathing better hoping he'll be good enough to go home tomorrow vitals noted nad heent nc at mmm breathing unlabored complete heart block w subsequent acute diastolic chf - doing better overall, pacer, med management, follow closely. otherwise as above Subjective Patient seen and evaluated at bedside. He states that he is overall feeling "fine" and that he will be "much happier once the procedure is over." Patient has no specific complaints or concerns at this time. He denies CP, SOB, abdominal pain, n/v. Review of Systems Constitutional: no fever, no chills and no fatigue Respiratory: no cough and no dyspnea Cardiovascular: no chest pain and no palpitations Gastrointestinal: no abdominal pain, no nausea and no vomiting Neurologic: no dizziness and no headache(s) Physical Exam Physical Exam: GENERAL: No acute distress. Well developed and well nourished. Vital signs reviewed. Patient is resting comfortably in bed. EYES: EOMI. Anicteric sclerae. HENT: Moist mucous membranes. RESPIRATORY: No respiratory distress. Able to speak in full sentences without increased work of breathing. NEUROLOGIC: A/O x4. No focal neuro deficits. PSYCHIATRIC: Cooperative. Appropriate mood and affect. Results & Data Results & Data ([facility]) Vital Signs (Past 12 Hours) Vital Signs Temp Pulse Pulse Resp BP BP Pulse Ox 03/16/20 14:48 64 20 144/80 H 95 03/16/20 14:33 61 20 132/79 94 03/16/20 08:00 60 03/16/20 06:00 61 14 140/76 97 03/16/20 05:57 60 148/73 H 03/16/20 05:55 62 154/76 H 03/16/20 05:53 63 140/79 03/16/20 05:50 64 130/76 93 03/16/20 05:47 60 115/72 94 03/16/20 05:45 63 130/70 95 03/16/20 05:42 64 143/75 H 93 03/16/20 05:40 61 119/86 93 03/16/20 05:37 61 137/71 93 03/16/20 05:35 60 135/69 93 03/16/20 05:32 60 133/70 93 03/16/20 05:30 60 16 129/84 93 03/16/20 05:27 60 122/73 94 03/16/20 05:25 62 117/71 93 03/16/20 05:22 61 126/74 93 03/16/20 05:20 60 113/69 93 03/16/20 05:17 60 127/69 93 03/16/20 05:15 60 118/70 92 03/16/20 05:12 61 131/67 92 03/16/20 05:09 60 109/73 91 03/16/20 05:07 60 103/70 90 03/16/20 05:04 60 111/71 91 03/16/20 05:02 60 116/82 91 03/16/20 05:01 60 91 03/16/20 05:00 16 92 03/16/20 04:59 61 115/71 92 03/16/20 04:57 61 116/74 91 03/16/20 04:55 60 108/66 91 03/16/20 04:52 60 120/75 92 03/16/20 04:49 60 136/70 92 03/16/20 04:47 61 120/65 91 03/16/20 04:44 63 107/65 92 03/16/20 04:42 60 127/72 92 03/16/20 04:39 60 122/72 93 03/16/20 04:37 61 112/65 93 03/16/20 04:34 61 110/67 94 03/16/20 04:32 60 128/74 94 03/16/20 04:30 16 99 03/16/20 04:29 64 122/78 94 03/16/20 04:27 60 101/72 95 03/16/20 04:24 60 131/74 94 03/16/20 04:22 60 113/71 95 03/16/20 04:19 60 153/74 H 94 03/16/20 04:17 60 146/78 H 93 03/16/20 04:14 60 159/73 H 92 03/16/20 04:12 62 110/94 92 03/16/20 04:09 36.7 C 61 129/73 94 03/16/20 04:07 60 150/91 H 90 03/16/20 04:04 66 145/65 H 93 03/16/20 04:01 60 131/71 93 03/16/20 04:00 16 98 03/16/20 03:59 60 121/72 91 Resident Activity Tracking Resident Involvement: Resident Care Provided Care Provided: Adult Hospital Medicine (1) CHF (congestive heart failure) Heart failure chronicity: acute Heart failure type: diastolic Qualified Code(s): I50.31 - Acute diastolic (congestive) heart failure
--- NOTE | 2020-03-16 17:07 | Billing Data ---
Date of Service March 16, 2020 Coding Level of Care Code 62306 Subseq Hosp Care Lvl 2
[2020-03-16] MEDS: ASPIRIN 81 MG ECTAB PO SCH (17:19)
[2020-03-16] MEDS: METOPROLOL SUCC 25MG EXT REL TAB PO SCH (20:40)
[2020-03-17 04:40] LABS: Basophils # (auto) 0.06 K/uL (0-0.2); Basophils % (auto) 0.4 %; Eosinophils # (auto) 0.33 K/uL (0-0.5); Eosinophils % (auto) 2.4 %; Hematocrit (blood only) 42.2 % (42-52); Hemoglobin 14.4 g/dL (14.0-18.0); Immature Granulocytes # (auto) 0.05 K/uL (0.00-0.02); Immature Granulocytes % (auto) 0.4 %; Lymphocytes # (auto) 2.37 K/uL (1.2-3.4); Lymphocytes % (auto) 17.5 %; Mean Corpuscular Hemoglobin 31.2 pg (25-34); Mean Corpuscular Hgb Conc 34.1 g/dL (32-36); Mean Corpuscular Volume 91.3 fL (80-100); Mean Platelet Volume 10.2 fL (7.4-10.4); Monocytes # (auto) 1.31 K/uL (0.11-0.59); Monocytes % (auto) 9.7 %; Neutrophils # (auto) 9.41 K/uL (1.4-6.5); Neutrophils % (auto) 69.6 %; Platelet Count 234 K/uL (130-400); RDW Coefficient of Variation 14.3 % (11.5-14.5); RDW Standard Deviation 46.8 fL (36.4-46.3); Red Blood Count 4.62 M/uL (4.7-6.1); White Blood Count 13.53 K/uL (4.8-10.8)
[2020-03-17 05:08] LABS: BUN Creatinine Ratio 22.8 (10-20); Calcium 8.6 mg/dl (8.5-10.1); Creatinine Clr Calc Pharmacy 38.1 ml/min; Est GFR (African American) 40.8; Est GFR (Non-African American) 35.2; Magnesium 1.7 mg/dl (1.8-2.4); Phosphorus 3.5 mg/dl (2.5-4.9); Potassium 3.6 mmol/L (3.5-5.1)
--- NOTE | 2020-03-17 06:32 | Billing Data ---
Date of Service March 17, 2020 Coding Level of Care Code Critical Care 1st - mins
[2020-03-17] MEDS: LEVOTHYROXINE SODIUM 25 MCG TABLET PO SCH (08:10)
[2020-03-17] MEDS: CLOPIDOGREL BISULFATE 75 MG TAB PO SCH (08:11)
[2020-03-17] MEDS: METOPROLOL SUCC 25MG EXT REL TAB PO SCH ×2 (08:11→20:14)
[2020-03-17] MEDS: ALPRAZolam 0.5 MG TABLET PO SCH (08:13)
[2020-03-17] MEDS: INSULIN ASPART 100 UNITS/ML 3 ML PEN SC SCH ×4 (08:30→20:17)
--- NOTE | 2020-03-17 08:46 | Cardiology Progress Note ---
Date of Service March 17, 2020 Assessment & Plan (1) Status post placement of cardiac pacemaker: He is doing well postop day #1, the device is working well and his chest x-ray looks good. From my standpoint he is stable to go home. I will put discharge orders in for postop care, he should have an appointment with Dr. Lopez and made for this next week for follow-up. Admission and Anticipated Discharge Date Admission Date: March 16, 2020 Subjective He is feeling well today, only minor incisional discomfort. No chest discomfort, no shortness of breath. Physical Exam Physical Exam: The incision is clean and dry, dressing changed. His lungs are clear and he has no cardiac rub. Results & Data ([facility]) Vital Signs (Past 12 Hours) Vital Signs Temp Pulse Resp BP Pulse Ox 03/17/20 05:50 36.7 C 03/17/20 05:09 78 20 139/78 93 03/17/20 04:10 71 19 117/75 94 03/17/20 03:09 79 21 146/80 H 93 03/17/20 02:09 70 21 122/77 90 03/17/20 01:09 65 19 137/75 93 03/17/20 00:09 80 19 132/74 92 03/16/20 23:59 70 03/16/20 23:09 67 20 102/80 90 03/16/20 22:09 75 18 137/80 91 03/16/20 21:09 75 18 150/84 H 93 Laboratory Results CBC 03/17/20 Range/Units 04:18 WBC 13.53 H (4.8-10.8) K/uL RBC 4.62 L (4.7-6.1) M/uL Hgb 14.4 (14.0-18.0) g/dL Hct 42.2 (42-52) % Plt Count 234 (130-400) K/uL Neut # (Auto) 9.41 H (1.4-6.5) K/uL Lymph # (Auto) 2.37 (1.2-3.4) K/uL [place] # (Auto) 1.31 H (0.11-0.59) K/uL Eos # (Auto) 0.33 (0-0.5) K/uL Baso # (Auto) 0.06 (0-0.2) K/uL Comprehensive Metabolic Panel 03/17/20 Range/Units 04:18 Sodium 136 (136-145) mmol/L Potassium 3.6 D (3.5-5.1) mmol/L Chloride 104 (98-107) mmol/L Carbon Dioxide 27 (21-32) mmol/L BUN 40 H (7-18) mg/dl Creatinine 1.77 H (0.6-1.4) mg/dl Glucose 140 H (70-99) mg/dl Calcium 8.6 (8.5-10.1) mg/dl Intake and Output 03/16/20 03/17/20 03/17/20 22:59 06:59 14:59 Intake Total 550 / 550 Output Total 700 / 3175 600 / 3175 Balance -150 / -2625 -600 / -2625 Intake: Oral 550 / 550 Output: Urine 700 / 3175 600 / 3175 Diagnostic Findings Postop ECG: Sinus rhythm with atrial tracking and ventricular pacing appropriately Telemetry: Predominantly sinus rhythm with atrial sensing and ventricular pacing, appropriate function Chest x-ray: Good lead position, no pneumothorax Device evaluation: Excellent pacing and sensing characteristics PG Care Time/CCT Total # of Minutes Spent Total Time Spent with Patient: Total time spent is greater than 50% in coordination of care (as documented) at patient's floor/unit and/or counseling patient: Coding Level of Care Code 68554 Post Operative Follow-Up Diagnoses Status post placement of cardiac pacemaker Z95.0 CPT Codes Dual Lead Pacemaker System - 10303 ([id number])
--- NOTE | 2020-03-17 09:06 | XRay Report ---
XR chest 2V PA/lateral HISTORY: Left-sided pacemaker placement. COMPARISON: Chest 03/15/2020. FINDINGS: No pneumothorax. Left-sided dual-chamber pacemaker. The leads appear intact. The heart is t op normal in size. There is mild diffuse interstitial thickening which could be chronic or represent mild congestive change. Trace bilateral pleural effusions. No new focal lung consolidations to sugges t pneumonia. IMPRESSION: 1. Left-sided dual-chamber pacemaker. No pneumothorax. 2. Trace bilateral pleural effusions and mild congestive change. ACT 112: Negative or not required by law. Electronically signed by: Shar Vega M.D. 03/17/2020 9:05 AM
--- NOTE | 2020-03-17 11:10 | Hospitalist Progress Note ---
Date of Service March 17, 2020 Assessment & Plan (1) Admitted to intensive care unit: Patient is an 80-year-old male with a PMHx of CHF, CAD, uncontrolled DM, CKD stage 3, HTN, COPD, BPH, AAA, and hypothyroidism who presented to the emergency department on 03/15/20 with concerns for shortness of breath that had been ongoing for a couple days and subsequently diagnosed with complete heart block currently s/p temporary pacemaker placement. Complete Heart Block - s/p temporary pacemaker placement overnight 03/15-03/16 - Following interventional cardiology recommendations: Evaluate for reversible causes of heart block; Trend troponins; Hold beta-percy; Follow-up echo in the morning - TTE 03/16/20: left ventricular systolic junction is normal. No regional wall motion abnormalities noted. There is borderline concentric LVH. LVEF 55-60%. There is mild mitral regurgitation. Compared with study dated 06/01/19 there is no significant change. - Permanent pacemaker 03/16/2020 w/ Dr. Lopez - Continue medication management per cardiology w/ metoprolol succinate 25mg po BID, Plavix 75mg po daily, ASA 81mg po q2d Diastolic CHF - Patient with longstanding history of it, on presentation BNP was 8000 - Lasix IV 40mg x1 given 03/17/20 Acute respiratory failure with hypoxemia - On presentation required oxygen to maintain saturations - Patient still w/ saturations to the high 80s, low 90s - Continue supplemental O2 as needed to maintain saturation > 90% Uncontrolled diabetes type 2 - Continue Insulin Aspart - Goal BSG range: 120-160 mg/dL - Correction factor 25 mg/dL/unit - INS:CHO ratio: 1 unit per 8g CHO consumed - BSGs ACHS if eating, q6h if npo COPD - Does not appear to be on inhaler at baseline. - We will hold off on duo nebs given there beta agonist activity pending cardiology recommendations History of BPH - Noted monitor for urinary retention History of tobacco use - Encourage smoking cessation Hypothyroidism - Continue levothyroxine 25 mcg FENa: NPO at this time pending permanent pacemaker placement Code Status: Full code DVT PPX: Per cardiology PT/OT: At present not indicated Dispo: ICU (2) Third degree heart block: (3) CHF (congestive heart failure): (4) Acute respiratory failure with hypoxemia: (5) Tobacco use disorder: (6) Hypertension: (7) Uncontrolled type 2 diabetes mellitus: (8) Chronic obstructive pulmonary disease: (9) Chronic kidney disease, stage III (moderate): (10) CAD, multiple vessel: (11) Benign prostatic hyperplasia with elevated prostate specific antigen (PSA): (12) Aneurysm of abdominal aorta: Admission and Anticipated Discharge Date Admission Date: March 16, 2020 Supervising Physician Co-Signing Physician Notes I personally examined the patient and verified all lamar points of history and exam, discussed case, and agree with decision making with Dr Herrera. feels ok and breathing better but at times desaturates. doesn't really feel that short of breath witht hem. seen later walking in halls feeling ok (see below) vitals noted nad heent nc at mmm breathing unlabored lungs faint rales but no r/w good effort. ambulating with minimal exertional dyspnea but then SpO2 ~85% on RA w ambulation when i see him the second time. no focal neuro deficits. pacer site dressed but overall appears c/d/i complete heart block w subsequent acute diastolic chf - doing better overall, pacer, needs a little more diuresis. otherwise as above. hopefully home tomorrow if not desaturating Subjective Patient was seen and evaluated at bedside this morning. He had a permanent pacemaker insertion procedure performed yesterday afternoon with Dr. Lopez. Patient states that he is overall feeling much better. He denies any CP, SOB, or cough. Patient is tolerating PO intake without difficulty, nausea, or vomiting. Review of Systems Constitutional: no fever, no chills and no fatigue Respiratory: no cough and no dyspnea Cardiovascular: no chest pain Gastrointestinal: no abdominal pain, no nausea and no vomiting Neurologic: no headache(s) Physical Exam Physical Exam: GENERAL: No acute distress. Well developed and well nourished. Vital signs reviewed. Patient is resting comfortably in bed. EYES: EOMI. Anicteric sclerae. HENT: Moist mucous membranes. RESPIRATORY: No respiratory distress. Able to speak in full sentences without increased work of breathing. NEUROLOGIC: A/O x4. No focal neuro deficits. PSYCHIATRIC: Cooperative. Appropriate mood and affect. Results & Data Results & Data ([facility]) Vital Signs (Past 12 Hours) Vital Signs Temp Pulse Resp BP Pulse Ox 03/17/20 09:33 107 H 17 116/55 L 95 03/17/20 08:09 74 22 119/77 89 L 03/17/20 08:00 36.7 C 03/17/20 05:50 36.7 C 03/17/20 05:09 78 20 139/78 93 03/17/20 04:10 71 19 117/75 94 03/17/20 03:09 79 21 146/80 H 93 03/17/20 02:09 70 21 122/77 90 03/17/20 01:09 65 19 137/75 93 03/17/20 00:09 80 19 132/74 92 03/16/20 23:59 70 Resident Activity Tracking Resident Involvement: Resident Care Provided Care Provided: Adult Hospital Medicine (1) CHF (congestive heart failure) Heart failure chronicity: acute Heart failure type: diastolic Qualified Code(s): I50.31 - Acute diastolic (congestive) heart failure
[2020-03-17] MEDS ORDERED: FUROSEMIDE 40 MG in SYRINGE 0 ML IV ONE (12:45)
--- NOTE | 2020-03-17 16:38 | Billing Data ---
Date of Service March 17, 2020 Coding Level of Care Code 77243 Subseq Hosp Care Lvl 3
[2020-03-18] MEDS: LEVOTHYROXINE SODIUM 25 MCG TABLET PO SCH (06:04)
[2020-03-18 06:17] LABS: Basophils # (auto) 0.06 K/uL (0-0.2); Basophils % (auto) 0.4 %; Eosinophils # (auto) 0.28 K/uL (0-0.5); Hemoglobin 14.6 g/dL (14.0-18.0); Immature Granulocytes # (auto) 0.05 K/uL (0.00-0.02); Immature Granulocytes % (auto) 0.4 %; Lymphocytes # (auto) 2.58 K/uL (1.2-3.4); Lymphocytes % (auto) 18.8 %; Mean Corpuscular Hemoglobin 30.9 pg (25-34); Mean Corpuscular Volume 91.1 fL (80-100); Mean Platelet Volume 10.5 fL (7.4-10.4); Monocytes # (auto) 1.52 K/uL (0.11-0.59); Monocytes % (auto) 11.1 %; Neutrophils # (auto) 9.21 K/uL (1.4-6.5); Neutrophils % (auto) 67.3 %; Platelet Count 206 K/uL (130-400); RDW Coefficient of Variation 14.3 % (11.5-14.5); Red Blood Count 4.72 M/uL (4.7-6.1)
[2020-03-18 06:50] LABS: BUN Creatinine Ratio 24.8 (10-20); Calcium 8.5 mg/dl (8.5-10.1); Creatinine Clr Calc Pharmacy 32.1 ml/min; Est GFR (African American) 33.2; Est GFR (Non-African American) 28.7; Potassium 3.6 mmol/L (3.5-5.1)
[2020-03-18] MEDS: CLOPIDOGREL BISULFATE 75 MG TAB PO SCH (08:48)
[2020-03-18] MEDS: ASPIRIN 81 MG ECTAB PO SCH (08:48)
[2020-03-18] MEDS: METOPROLOL SUCC 25MG EXT REL TAB PO SCH (08:48)
[2020-03-18] MEDS: INSULIN ASPART 100 UNITS/ML 3 ML PEN SC SCH ×2 (08:50→12:25)
[2020-03-18] MEDS: ALPRAZolam 0.5 MG TABLET PO SCH (08:52)
--- NOTE | 2020-03-18 12:58 | Discharge Summary ---
Date of Service March 18, 2020 Admission HPI Per Admitting Provider Patient is 80-year-old male with a past medical history as described below who presented to the emergency department on 03/15 with concerns for shortness of breath that has been ongoing since Thursday. The patient believe it has been progressively getting worse with some associated chest and back tightness. Additionally he noticed increasing lower extremity swelling, denying any cough, fevers, chills, nausea, vomiting, diarrhea, other constitutional symptoms. Patient has no known Covid contacts or loss of taste or smell. Patient did not take anything at home for the symptoms, and reports them progressively getting worse. Patient is a former smoker, follows with Dr. Schaffer as an outpatient and says is compliant with his medications. He does have a prior history of CAD and with a history of stenting x3. On presentation to the emergency department,Routine labs were obtained indicating a white count of 12.81, with a neutrophil predominance, remainder the CBC was within normal limits, can 7 showed a creatinine of 2.27, and a glucose of 330, troponin of 0.062, BNP of 8000, beta hydroxybutyrate of 6.19, Covid test was negative. Chest x-ray demonstrated emphysematous changes and questionable cardiomegaly EKG demonstrated a ventricular escape rhythm with a rate of 35, wide QRS, indicating third-degree heart block. Given his slow heart rate a trial of atropine was attempted which did not result in improvement. On-call dismantler Dr. May reviewed the EKG and stated given the heart failure and associated heart block the patient would need a temporary pacemaker, heart code was called and the patient was taken to the [facility] for temporary pacer placement by Dr. Woo. The patient is now recovering in the ICU in no acute distress and will be consulted by cardiology for permanent pacemaker placement Upon assessing the patient in the ICU status post his procedure he was in cheerful spirits. Endorsing his pain was well controlled, he stated that occasionally will get a funny feeling in his chest with a deep inspiration. Otherwise the patient had no complaints. Patient reports voiding since his procedure, has not passed flatus or had a bowel movement. Answered all questions, no acute concerns. Primary Care Provider: Gene Calvo MD Admission Exam Per Admitting Provider General: Elderly gentleman in no acute distress HEENT: Normocephalic atraumatic Neck: Surgical site clean dry and intact on the right side of his neck, pacer wires in place, pacer active Cardiac: Externally paced rhythm at 60 bpm, I did not appreciate any abnormal murmurs rubs or gallops, 1+ pedal edema bilaterally, negative calf tenderness Respiratory: Clear to auscultation bilaterally with symmetrical chest expansion no increased work of breathing, I did not appreciate any significant wheezes, rales, rhonchi GI: Soft, nontender, nondistended all 4 quadrants MSK: Moves all extremities Skin: Cool dry and intact, surgical site clean dry and intact, no signs of bleeding Neuro: Alert and oriented x4 Psych: Calm and cooperative Principal Diagnosis complete heart block Discharge Exam GENERAL: No acute distress. Well developed and well nourished. Vital signs reviewed. EYES: EOMI. Anicteric sclerae. HENT: Moist mucous membranes. RESPIRATORY: No respiratory distress. Patient able to speak in full sentences without increased work of breathing. NEUROLOGIC: A/O x4. PSYCHIATRIC: Cooperative. Appropriate mood and affect. Discharge Data Allergies Allergy/AdvReac Type Severity Reaction Status Date / Time No Known Allergies Allergy Verified 03/15/20 23:43 Consultations 03/15/20 23:40 ED Decision to Admit Stat 03/16/20 01:04 Consult Case Management - Discharge Planning Routine Consult Coal Digger Routine 03/16/20 02:59 Consult Cardiac Electrophysiology Routine 03/16/20 03:00 Consult Case Management - Discharge Planning Routine Consult Coal Digger Routine 03/18/20 08:57 Consult Case Management - Discharge Planning Routine Procedures Performed Operation Date: 03/15/20 23:55 Actual Procedures p Ins/RemTemporary Transvenous Pacer - Pietro Woo MD s Ultrasound Vascular Access - Pietro Woo MD Operation Date: 03/16/20 13:30 Actual Procedures p Pacer with A/V Leads (Dual) - Ford Lopez MD Ordered Studies 03/15/20 23:54 CL Cath Imgs for PACS use only Stat 03/16/20 13:08 CL Cath Imgs for PACS use only Routine Hospital Course (1) Admitted to intensive care unit: Patient is an 80-year-old male with a PMHx of CHF, CAD, uncontrolled DM, CKD stage 3, HTN, COPD, BPH, AAA, and hypothyroidism who presented to the emergency department on 03/15/20 with concerns for shortness of breath that had been ongoing for a couple days and subsequently diagnosed with complete heart block now s/p pacemaker placement 03/16/2020. Complete Heart Block - s/p temporary pacemaker placement overnight 03/15-03/16 - Following interventional cardiology recommendations: Evaluate for reversible causes of heart block; Trend troponins; Hold beta-percy; Follow-up echo in the morning - TTE 03/16/20: left ventricular systolic junction is normal. No regional wall motion abnormalities noted. There is borderline concentric LVH. LVEF 55-60%. There is mild mitral regurgitation. Compared with study dated 06/01/19 there is no significant change. - Permanent pacemaker 03/16/2020 w/ Dr. Lopez - Continue medication management per cardiology w/ metoprolol succinate 25mg po BID, Plavix 75mg po daily, ASA 81mg po q2d - Follow up with cardiology per their recommendation within 1-2 weeks. - Follow up with PCP within 1-2 weeks. Diastolic CHF - Patient with longstanding history of diastolic CHF, on presentation BNP was 8000 - Lasix IV 40mg x1 given 03/17/20 - Creatinine 03/18 is 2.1 (bumped up from 1.77 yesterday); no further diuresis indicated - Need to watch diet discussed with patient; recommend low Na diet with < 2000mg Na/day - Plan to recheck BMP within 1 week of discharge from hospital Acute respiratory failure with hypoxemia - On presentation required oxygen to maintain saturations - Patient still w/ saturations to the high 80s, low 90s - Continued supplemental O2 as needed to maintain saturation > 90% - I suspect that patient's hypoxemia more chronic than acute and is a combination of longstanding COPD in combination with the CHF - Home O2 ordered for patient and advised patient to try to maintain O2 saturation in low 90s - F/u with PCP within 1-2 weeks; may need to consider further management of the COPD Uncontrolled diabetes type 2 - HgbA1c 02/22/20 = 11.3% - Continue Insulin Aspart -- inpatient DM regimen as follows - Goal BSG range: 120-160 mg/dL - Correction factor 25 mg/dL/unit - INS:CHO ratio: 1 unit per 8g CHO consumed - BSGs ACHS if eating, q6h if npo - BGs elevated during stay - On discharge, patient to return to home management including insulin glargine 100 unit/mL, 20 units qHS and Novolin U-100 100 unit/mL, 10 units TID w/ meals - Adjustment of home regimen to be discussed by patient with PCP COPD - Does not appear to be on inhaler at baseline - Would recommend discussing COPD w/ PCP and consider maintenance therapy (see acute respiratory failure w/ hypoxemia above) History of BPH - Noted monitor for urinary retention History of tobacco use - Encourage smoking cessation Hypothyroidism - Continue levothyroxine 25 mcg Code Status: Full code Dispo: ICU --> medsurge/tele 03/17/20 --> home 03/18/20 (2) Third degree heart block: (3) CHF (congestive heart failure): (4) Acute respiratory failure with hypoxemia: (5) Tobacco use disorder: (6) Hypertension: (7) Uncontrolled type 2 diabetes mellitus: (8) Chronic obstructive pulmonary disease: (9) Chronic kidney disease, stage III (moderate): (10) CAD, multiple vessel: (11) Benign prostatic hyperplasia with elevated prostate specific antigen (PSA): (12) Aneurysm of abdominal aorta: Total Time Total Time Spent Total Time Spent (In Minutes): >30 Discharge Plan Discharge Items Patient Disposition: Home - Self-Care Reason For Visit: COMPLETE HEART BLOCK Discharge Diagnosis: complete heart block, see below otherwise Activity: Resume your previous activity Activity Comment: with oxygen Non-emergency contact: Primary Care Provider Call non-emergency contact if: you have any medication questions Follow-up/Referrals: Pietro Calvo MD [Primary Care Provider] - Diet: Low Sodium (2gm) Addtl Attending Provider Instructions: complete heart block -the main problem that led to you being admitted was that your heart electricity was not conducting well - this is what is called complete heart block. it is fortunately something that a pacemaker does a wonderful job of correcting. -follow with cardiology per their recommendations, and see the pacemaker specific/post procedure instructions as below congestive heart failure -congestive heart failure is a term that basically means that fluid was backing up from your heart into your lungs. in your situation, this was mostly due to your heart rate being so slow --> when our heart is beating at about half the rate it is supposed to beat, then we'll move about half of the blood forward. since our body still tries to move blood forward during that time, the heart becomes a "bottleneck" for blood flow and the backup ends up in lungs. this was a part of your low oxygen numbers -we've pulled as much fluid as we can off of you with diuretics (water pills - although for you it was through the IV), and your labwork today actually shows you to be a little on the dry side (this is a good thing temporarily) -we'd recommend that when you follow up in the office this week, they check some simple bloodwork (BMP, basic metabolic panel) to follow your status -most people with any problems with congestive heart failure can stay out of trouble by minimizing sodium in take. this is because when our kidneys see a little sodium, they'll hold onto a little water; when they see a lot of sodium, they'll hold onto a lot of water - and therefore flood our lungs. obviously for you the reason your lungs got flooded was the low heart rate preventing enough blood from moving forward, but knowing that it can happen, you'll do well to try to stay fairly low with sodium intake each day. ideally try to stay less than 2000mg of sodium in a day - and realize that the salt shaker is almost never where people cause themselves problems (that's not to say that a salt shaker isn't bad - it will lead to fluid retention as well - it's just that most of my patients find their way into way too much sodium without even touching the salt shaker). most people get into trouble with the sodium that is added to foods as an additive and a flavoring agent. in that respect - learn to look at labels to see how much sodium is in the food, and how big they consider a serving. in doing this, you can work to keep yourself out of trouble with fluid retention in the future. -again, though, to be clear, this particular "congestive heart failure" episode was from the low heart rates low oxygen -even once your heart rate was better, and even once we pulled as much fluid off of you as we safely could, your oxygen numbers were still low. this suggests that you probably run lower than you realize for longer than you've known -as we discussed, if someone slowly drops their oxygen numbers over months to years, they can be lower than is safe, but people will not really feel it. for comparison, if i were running a pulse ox in the 80 percent range, i would feel so short of breath i could barely move -we suspect that you run low probably from a combination of your COPD and your heart (probably more COPD than heart, but a combination of both), and as above noted, have probably been slowly running lower over time -because you don't feel as short of breath as "you should" for your oxygen numbers, it's important to learn that you can't trust how you feel to give you a perfect picture of how your breathing is doing. of course feeling good is better than feeling bad, and feeling like you're breathing ok is far better than feeling short of breath, but it's important to also use your pulse oximeter to spot check how well you are getting oxygen in a few times a day as well. typically treating with oxygen to the low 90's is an acceptable goal - so if you're below 90%, we'd suggest you stop and rest and recheck numbers -- if that doesn't bring you up, then we'd need to have you turn up the oxygen a little. if you need more oxygen than normal for more than a little while, or if you can't get your numbers above 90%, then you should get evaluated right away COPD -while i don't know the exact status of your COPD, given that you need oxygen and we've gotten the fluid out of your lungs as much as we can, i suspect that a lot of your low oxygen numbers relate back to COPD -most people with COPD do better if they're on a maintenance inhaler regimen (routine inhalers that you take every day whether you feel good, bad, or indifferent) -- on the list of your medications we see here, i don't see that you are on any -sometimes people have been on inhalers and quit them, feeling like they did not help - this is a common mistake we see people with COPD make - the maintenance inhalers don't really make you feel different when you take it any more than your blood pressure medicines make you feel different in the moment either - they work to reduce chronic inflammation and airway spasm in your lungs so that on any given day, you breathe better -at the same time, it's also possible that they haven't been started yet -either way, we'd recommend when you follow up with your family doc this week that you discuss getting started on maintenance inhalers for this problem post pacemaker instructions by cardiology: ACTIVITY RECOMMENDATIONS: * Do not raise affected arm over head for 2 weeks. SPECIAL CARE INSTRUCTIONS: * If bleeding occurs, apply direct pressure to area for 5 minutes. * Call your doctor if you have severe pain, fever, drainage or bleeding at site. * Keep dressing on and dry for 48 hours then remove. * Keep any scheduled doctor's appointment. * Implant Card - hand held device with website information given. SKIN IRRITATION: * You may experience some redness and/or swelling in the area where radiation was administered. If any skin irritation occurs, please contact your family physician. FOLLOW UP VISIT: Keep any scheduled doctor appointments. "TO DO LIST" -follow up with BOTH cardiology and your family doc in the next 1-2 weeks -labwork (Basic metabolic panel) mid week this coming week -discuss COPD inhalers with your family doc -wear oxygen and work on checking your oxygen numbers to see how you're breathing is going several times a day -work on staying low sodium - less than 2000mg in a day Pending Studies at Discharge: No Stand-Alone Forms: [facility], Smoking Cessation Medications and DC Order Prescriptions: Continued ezetimibe 10 mg tablet 10 mg PO DAILY Qty: 90 RF: 3 metoprolol succinate 25 mg tablet extended release 24 hr 25 mg PO BID Qty: 60 RF: 0 levothyroxine 25 mcg tablet 25 mcg PO DAILY Qty: 90 RF: 3 (DME) pen needle, diabetic [BD Ultra-Fine Madison Pen Needle] 32 gauge x 5/32" needle See Rx Instructions .ROUTE .MEDSUPPLY Qty: 360 RF: 3 alprazolam 0.5 mg tablet 0.5 mg PO DAILY Qty: 90 RF: 1 amlodipine 10 mg tablet 10 mg PO HS Qty: 90 RF: 3 clopidogrel 75 mg tablet 75 mg PO DAILY Qty: 90 RF: 3 Novolin R Regular U-100 Insuln 100 unit/mL solution 10 unit subcut TID RF: 0 insulin glargine 100 unit/mL (3 mL) insulin pen 20 unit subcut HS RF: 0 hydralazine 25 mg tablet 25 mg PO TID Qty: 60 RF: 4 rosuvastatin 5 mg tablet 5 mg PO Q2D RF: 0 coenzyme Q10 [Co Q-10] 200 mg Capsule 200 mg PO DAILY RF: 0 aspirin 81 mg tablet,delayed release (DR/EC) 81 mg PO Q OTHER DAY RF: 0 nitroglycerin [Nitrostat] 0.4 mg Tablet, Sublingual 0.4 mg Sublingual UD PRN (Reason: chest pain) Qty: 1 RF: 4 Discharge Orders: Discharge Order (Routine); Ordered 03/18/20 Ordered By: Darin Torres Admission Data Admit Date/Time: 03/16/20 01:04 Attending Provider: Darin Torres Admit Provider: Pietro Woo Primary Care Provider: Pietro Calvo Other Providers: Keith Enamorado ; Jean Paul Altman ; Tariq Goode ; Francisco Javier May ; Christiano Suárez ; Anup Phillips ; Ford Lopez ; Malcolm Rivera Jr ; Nuno Chandler ; Becky Lynn ; Marie Nayak ; Pietro Woo ; Pietro Lu ; Calin Mat[place] ; Gabe Adams ; Cori Denson ; Renetta Pineda ; Jurgen Camargo ; Saleem Perea ; Wade Asher ; Gatito Esteban Other Interventions: Discharge Summary Assessment (RN) Last Done: 03/18/20 12:32 Supervising Physician Co-Signing Physician Notes I personally examined the patient and verified all lamar points of history and exam, discussed case, and agree with decision making with Dr Herrera. feels ok, ok w home O2, and feels up to going home. vitals noted nad heent nc at mmm breathing unlabored no accessory muscles good effort skin no rashes no pallor or icterus complete heart block w subsequent acute diastolic chf - doing better overall, pacer in. diuresed as well as we can givne rise in creatinine. see below for hypoxia hypoxia - acute from acute on chronic diastolic chf - but suspect underlying COPD is a major contributor as well. home O2 set up. f/u PCP re ?inhalers for COPD Resident Activity Tracking Resident Involvement: Resident Care Provided Care Provided: Adult [facility] Medicine
--- NOTE | 2020-03-18 18:02 | Billing Data ---
Date of Service March 18, 2020 Coding Level of Care Code D/C Day Management >30 mins
--- NOTE | 2020-03-27 06:34 | Coding Query ---
CONGESTIVE HEART FAILURE To Promote full compliance with coding requirements relating to patient care, physician participation is requested in all cases of visualizer uncertainty. Please assist us with the following questions. A diagnosis of Congestive Heart Failure is documented in the patient's medical record. To accurately code this diagnosis and to compare patient severity, we ask that you specify the type of heart failure by placing an X within the parenthesis (x). SYSTOLIC HEART FAILURE ( ) Acute ( ) Chronic ( ) Acute on Chronic ( ) Rheumatic ( ) Unknown DIASTOLIC HEART FAILURE ( ) Acute ( ) Chronic ( x )x Acute on Chronic ( ) Rheumatic ( ) Unknown COMBINED SYSTOLIC AND DIASTOLIC HEART FAILURE ( ) Acute ( ) Chronic ( ) Acute on Chronic ( ) Rheumatic ( ) Unknown Was the CHF Present On Admission? Please check the appropriate box: ( x ) Present on Admission ( ) Not Present On Admission ( ) Clinically undetermined Thank you Evette CEE
== END 2020-03-18 14:01 | disposition home or self-care (01) | DRG 228 ==
LOC: ED 22:19 → 1E 03-16 00:13 → SUATTDRO 03-16 01:04 → 1E 03-16 01:04 → 2N 03-17 12:11

== ENCOUNTER 2020-05-29 15:55 | Inpatient (IN) ==
[2020-05-29] MEDS ORDERED: dexAMETHasone 10 MG in SYRINGE 0 ML IV STA (16:17)
[2020-05-29] MEDS ORDERED: guaiFENesin 600 MG TABCR PO STA (16:17)
[2020-05-29] MEDS ORDERED: SODIUM CHLORIDE 0.9% 500 ML IV ONE (16:18)
[2020-05-29] MEDS ORDERED: ALBUT/IPRATROP 3MG/0.5MG NEB 3 ML VIAL NEB STA (16:18)
[2020-05-29] MEDS ORDERED: ACETAMINOPHEN 1,000 MG/100 ML VIAL IV STA (16:20)
[2020-05-29 17:15] LABS: Basophils # (auto) 0.02 K/uL (0-0.2); Basophils % (auto) 0.1 %; Hematocrit (blood only) 32.9 % (42-52); Hemoglobin 11.3 g/dL (14.0-18.0); Immature Granulocytes # (auto) 0.03 K/uL (0.00-0.02); Immature Granulocytes % (auto) 0.2 %; Lymphocytes # (auto) 1.05 K/uL (1.2-3.4); Lymphocytes % (auto) 6.8 %; Mean Corpuscular Hemoglobin 31.2 pg (25-34); Mean Corpuscular Hgb Conc 34.3 g/dL (32-36); Mean Corpuscular Volume 90.9 fL (80-100); Mean Platelet Volume 9.6 fL (7.4-10.4); Monocytes # (auto) 2.01 K/uL (0.11-0.59); Neutrophils # (auto) 12.39 K/uL (1.4-6.5); Neutrophils % (auto) 79.9 %; Platelet Count 471 K/uL (130-400); RDW Coefficient of Variation 13.8 % (11.5-14.5); RDW Standard Deviation 45.8 fL (36.4-46.3); Red Blood Count 3.62 M/uL (4.7-6.1)
[2020-05-29 17:18] LABS: Base Excess VBG -2.8 mEq/L; Oxygen Saturation VBG 62.5 %; pH VBG 7.41 (7.36-7.41)
[2020-05-29] MEDS ORDERED: DEXAMETHASONE SOD INJ 10 MG/ML VIAL ONE (17:31)
--- NOTE | 2020-05-29 17:36 | XRay Report ---
XR chest 1V portable CLINICAL HISTORY: Atypical chest pain COMPARISON STUDY: 05/18/2019 FINDINGS: The heart is enlarged. There is a left subclavian dual-chamber central venous pacemaker. Th ere is mild pulmonary vascular congestion. Left hemidiaphragm is obscured. Left lower lobe airspace o pacities are suspected. Associated left pleural fluid is suspected IMPRESSION: 1. Cardiomegaly and mild pulmonary vascular congestion 2. Suspected bilateral pleural effusions left greater than right. 3. Left lower lobe airspace opacities, atelectasis versus pneumonia. Clinical and radiographic follow -up are recommended. ACT 112: Negative or not required by law. Electronically signed by: Xavier Carroll M.D. 05/29/2020 5:35 PM
[2020-05-29 17:38] LABS: Albumin Level 2.8 gm/dl (3.4-5.0); BUN Creatinine Ratio 21.1 (10-20); Bilirubin Direct 0.3 mg/dl (0-0.2); Bilirubin,Total 0.7 mg/dl (0.2-1); Calcium 8.4 mg/dl (8.5-10.1); Creatinine Clr Calc Pharmacy 32.6 ml/min; Est GFR (African American) 34.2; Est GFR (Non-African American) 29.5; Phosphorus 2.6 mg/dl (2.5-4.9); Potassium 4.4 mmol/L (3.5-5.1)
[2020-05-29 17:44] LABS: Albumin Globulin Ratio 0.7 (0.9-2); Globulin 3.9 gm/dl (2.5-4.0); Total Protein 6.7 gm/dl (6.4-8.2); Troponin I 0.049 ng/ml (0-0.045)
[2020-05-29 17:49] LABS: Beta-Hydroxybutyrate 3.13 mg/dl (0.2-2.81); Thyroid Stimulating Hormone 1.55 uIu/ml (0.300-4.500)
--- NOTE | 2020-05-29 17:59 | Emergency Department Note ---
Impression & Plan Acute and chronic respiratory failure with hypoxia, COPD exacerbation, Elevated troponin, Status post administration of all doses of COVID-19 vaccine series ED Provider Note NAME: KD AGARWAL AGE: 80 SEX: M ARRIVES VIA: Walk-In INFORMANT: Patient, ED PROVIDER(S): Jovanni Roth MD CHIEF COMPLAINT: Chills, Shortness of breath. PLAN: Disposition: Admit MEDICAL DECISION MAKING: The patient is a pleasant 80-year-old gentleman with a past medical history of COPD with emphysema, chronic diastolic heart failure, chronic hypoxic r espiratory failure on home O2, type 2 diabetes, CKD, CAD who presents emergency department for evaluation of worsening shortness of breath, body aches and feverishness after having his second COVID-19 vaccination yesterday where he developed symptoms several hours later at home. He denies any known COVID-19 exposures. He reports he is normally on 3 L nasal cannula at home currently was placed on 4 L and is with O2 saturation of 90-93%. He denies any recent weight gain or fluid retention. He reports he has had leg swelling in the past but this has resolved. On arrival the patient is acute on chronically ill-appearing, mildly dyspneic but no acute distress, afebrile heart in 100 and vital signs otherwise stable. On exam the patient has intermittent scattered wheezes and is diminished at the bases. He does appear clinically dry. EKG is paced without overt acute ischemia. Chest x-ray demonstrates cardiomegaly with mild vascular congestion and suspected pleural effusions. Nonspecific left lower lobe opacities are noted which could be atelectasis versus pneumonia. WBC 15.5, nonspecific and approximate to recent values. H/H 11.3/32.9 decreased from March but no recent values for comparison. Platelets 470, likely reactive. VBG is unremarkable. Chemistry without metabolic acidosis. Creatinine 2.05 within prior injury values in setting of CKD. BUN/creatinine> 20 suggestive of component of dehydration given the patient's clinically dry appearance. Initial blood glucose 419 in the setting of the patient reporting not taking his insulin as he has been unable to eat due to feeling unwell. Beta hydroxybutyrate is not significantly elevated. Troponin 0.049 in the setting of chronic elevations. BNP 5500, decreased from 7800 in March in setting of CKD. On reevaluation the patient did feel improved after gentle IV fluid hydration, dexamethasone, guaifenesin, DuoNeb, APAP. Given the timing of the patient's symptoms several hours after his second COVID-19 immunization suspect symptoms likely related to flare of his COPD provoked by his immune response to the vaccine. Given he denied any symptoms prior to his vaccination will defer antibiotics at this time. Patient does feel improved he does feel increased dyspnea from his baseline on both the patient and at the bedside agreed with plan for admission for further management. Case was discussed with ED [facility] hospitalist, who will evaluate the patient for admission. Triage Nursing notes reviewed and agree them. Prior medical records reviewed Vital Signs: reviewed and remarkable for tachycardia. Differential diagnosis: Reactive airway disease, pneumonia, pneumothorax, COPD, CHF, infections, cardiac ischemia, pulmonary embolism, musculoskeletal, gastrointestinal, as well as other pathologies. ER treatment provided: See below. Diagnostics interpreted by me: ECG: Atrial sensed ventricular paced rhythm, 88 bpm, no ectopy, no overt acute ischemia. Cardiac Monitoring: An order for continuous cardiac monitoring was placed and demonstrated Atrial sensed ventricular paced rhythm, 88 bpm, no ectopy. Laboratory studies: See below Imaging studies: XR chest 1V portable CLINICAL HISTORY: Atypical chest pain COMPARISON STUDY: 05/18/2019 FINDINGS: The heart is enlarged. There is a left subclavian dual-chamber central venous pacemaker. There is mild pulmonary vascular congestion. Left hemidiaphragm is obscured. Left lower lobe airspace opacities are suspected. Associated left pleural fluid is suspected IMPRESSION: 1. Cardiomegaly and mild pulmonary vascular congestion 2. Suspected bilateral pleural effusions left greater than right. 3. Left lower lobe airspace opacities, atelectasis versus pneumonia. Clinical and radiographic follow-up are recommended. ACT 112: Negative or not required by law. Consultation(s): Case was discussed with ED [facility] hospitalist, who will evaluate the patient for admission. HPI: The patient is a pleasant 80-year-old gentleman with a past medical history of COPD with emphysema, chronic diastolic heart failure, chronic hypoxic respiratory failure on home O2, type 2 diabetes, CKD, CAD who presents emergency department for evaluation of worsening shortness of breath, body aches and feverishness after having his second COVID-19 vaccination yesterday where he developed symptoms several hours later at home. He denies any known COVID-19 exposures. ROS: See above HPI for pertinent positives & negatives. A total of 10 systems reviewed and were otherwise negative. PAST MEDICAL HISTORY:See Below PAST SURGICAL HISTORY:See Below FAMILY HISTORY:See Below SOCIAL HISTORY:See Below HOME MEDICATIONS:See Below ALLERGIES:See Below VITALS:See Below PHYSICAL EXAMINATION: GENERAL: Awake, alert, acute on chronically ill-appearing, in no distress, BMI 29.9. HENT: Normocephalic, atraumatic. Oropharynx with dry mucous membranes and otherwise unremarkable. . EYES: Normal conjunctiva. Sclera non-icteric. NECK: Supple. No nuchal rigidity. FROM. No JVD. RESPIRATORY: Diminished at the bases with scattered intermittent wheezes. Mild increased work of breathing but no acute distress. CARDIAC: tachycardic rate, normal rhythm. Extremities warm and well perfused. Pulses equal. ABDOMEN: Soft, non-distended. No tenderness to palpation. No rebound or guarding. No masses. RECTAL: Deferred. MUSCULOSKELETAL: Chest examination reveals no tenderness. The back is symmetrical on inspection without obvious abnormality. There is no CVA tenderness to palpation. No joint edema. LOWER EXTREMITIES: Calves are equal size bilaterally and non-tender. No edema. No discoloration. NEURO: Normal sensorium. No sensory or motor deficits noted. SKIN: No rash or jaundice noted. ED COURSE: Critical Care: I have personally spent greater than 35 minutes of critical care time in the direct management of this patient. This includes bedside care, interpretation of diagnostic studies, and testing, discussion with consultants, patient, and family members, and other required patient management activities. This 35 minutes is in excess of all separately billable procedures. Jovanni Roth MD Past Med/Surg History Medical History Anemia Aneurysm of abdominal aorta Benign prostatic hyperplasia with elevated prostate specific antigen (PSA) CAD, multiple vessel Carotid artery stenosis, asymptomatic Chronic kidney disease Chronic kidney disease, stage III (moderate) Chronic obstructive pulmonary disease Diabetes mellitus, type 2 Diabetic nephropathy Diverticulitis of colon Edema Elevated PSA Enteritis Herpes zoster Hypercholesterolemia Hyperkalemia Hyperlipidemia Hypertension Male erectile disorder of organic origin Myocardial Infarction Panic disorder without agoraphobia Peripheral vascular disease Pre-operative exam Proteinuria Pulmonary nodule Steroid-induced hyperglycemia Tobacco use disorder Uncontrolled type 2 diabetes mellitus Surgical History H/O aortic aneurysm repair History of partial colectomy Stented coronary artery Family History Other COPD (chronic obstructive pulmonary disease) Diabetes mellitus type 1 Prostate cancer Denies family history of Ovarian cancer Breast cancer Colorectal cancer Social History Smoking Status: Former smoker Second Hand Exposure: No; Hx Alcohol Use: No Hx Substance Use: No Preferred Language: Kinyarwanda Communication Ability: Effective Hearing Ability: Normal Data Communications Technician Required: No Beliefs That Will Affect Care: None marital status: Current Living Situation: Spouse current occupational status: retired current occupation: Retired Feels Safe at Home: Yes caffeine: Yes Dental Care, Regularly: No Physical Activity Frequency: Does not Exercise Seatbelt Use: always Sunscreen Use: No Assistive Devices: None Allergies Allergies Allergy/AdvReac Type Severity Reaction Status Date / Time No Known Allergies Allergy Verified 05/29/20 19:51 Home Meds Home Medications Medication Instructions Recorded Confirmed aspirin 81 mg PO Q OTHER DAY 05/23/18 05/29/20 coenzyme Q10 [Co Q-10] 200 mg PO DAILY 05/31/19 05/29/20 insulin regular human 100 unit/mL 12 unit SUBCUT TIDM ml 02/13/20 05/29/20 injection solution insulin glargine 100 unit/mL (3 26 unit SUBCUT HS ml 03/21/20 05/29/20 mL) subcutaneous pen Previous Rx's Medication Instructions Recorded ezetimibe 10 mg tablet 10 mg PO DAILY #90 tab 07/07/19 metoprolol succinate 25 mg 25 mg PO BID #60 tab 09/21/19 tablet,extended release 24 hr levothyroxine 25 mcg tablet 25 mcg PO DAILY #90 tab 09/26/19 alprazolam 0.5 mg tablet 0.5 mg PO DAILY #90 tab 01/16/20 amlodipine 10 mg tablet 10 mg PO HS #90 tab 02/03/20 clopidogrel 75 mg tablet 75 mg PO DAILY #90 tab 02/03/20 nitroglycerin 0.4 mg sublingual 0.4 mg SUBLINGUAL UD PRN #30 tabs 03/28/20 tablet albuterol sulfate 90 mcg/actuation 2 puff INHALATION QID PRN #54 g 04/03/20 aerosol inhaler rosuvastatin 5 mg tablet 5 mg PO Q2D #90 tab 04/05/20 hydralazine 25 mg tablet 25 mg PO TID 90 Days #270 tab 04/09/20 bumetanide 1 mg tablet 0.5 mg PO DAILY #45 tab 05/23/20 fluticasone fur. 200 mcg-umeclid 1 inh INHALATION DAILY #28 ea 05/23/20 62.5 mcg-vilant 25 mcg inhalat.powder Results & Data (ED) Vital Signs Vital Signs - 24 hr 05/29/20 15:57 05/29/20 16:19 05/29/20 16:34 Temperature 36.7 C Temperature Source Temporal Artery Scan Pulse Rate 100 H Pulse Rate [Right Finger] Pulse Rate from SpO2 Sensor Respiratory Rate 20 22 Respiratory Effort / Characteristics Spontaneous Non-Labored Spontaneous Respiratory Depth Normal Respiratory Pattern Regular Blood Pressure 130/80 Blood Pressure [Right Arm] Blood Pressure Mean 96 Blood Pressure Mean [Right Arm] Blood Pressure Position [Right Arm] Pulse Oximetry 90 90 94 Oxygen Delivery Method Nasal Cannula Nasal Cannula Nasal Cannula Oxygen Flow Rate 3 3 4 Sepsis Recent Fever Within 48 Hours No Sepsis New/Unexplained Change in Mental Status No Sepsis Action Taken by Nursing No Action Required 05/29/20 16:39 05/29/20 16:53 05/29/20 17:00 Temperature Temperature Source Pulse Rate 87 85 Pulse Rate [Right Finger] Pulse Rate from SpO2 Sensor 81 Respiratory Rate 33 H 32 H Respiratory Effort / Characteristics Respiratory Depth Respiratory Pattern Blood Pressure Blood Pressure [Right Arm] Blood Pressure Mean Blood Pressure Mean [Right Arm] Blood Pressure Position [Right Arm] Pulse Oximetry 94 92 Oxygen Delivery Method Nasal Cannula Nasal Cannula Oxygen Flow Rate 4 4 Sepsis Recent Fever Within 48 Hours Sepsis New/Unexplained Change in Mental Status Sepsis Action Taken by Nursing 05/29/20 17:10 05/29/20 17:12 05/29/20 17:19 Temperature Temperature Source Pulse Rate 85 86 Pulse Rate [Right Finger] 84 Pulse Rate from SpO2 Sensor 86 87 Respiratory Rate 24 26 H 18 Respiratory Effort / Characteristics Non-Labored Spontaneous Respiratory Depth Normal Respiratory Pattern Regular Blood Pressure 98/66 L Blood Pressure [Right Arm] 98/66 L Blood Pressure Mean 76 Blood Pressure Mean [Right Arm] 76 Blood Pressure Position [Right Arm] Lying Pulse Oximetry 92 92 94 Oxygen Delivery Method Nasal Cannula Nasal Cannula Nasal Cannula Oxygen Flow Rate 4 4 4 Sepsis Recent Fever Within 48 Hours Sepsis New/Unexplained Change in Mental Status Sepsis Action Taken by Nursing 05/29/20 17:20 05/29/20 17:30 05/29/20 17:40 Temperature Temperature Source Pulse Rate 85 83 73 Pulse Rate [Right Finger] Pulse Rate from SpO2 Sensor 84 82 71 Respiratory Rate 31 H 31 H 31 H Respiratory Effort / Characteristics Respiratory Depth Respiratory Pattern Blood Pressure Blood Pressure [Right Arm] Blood Pressure Mean Blood Pressure Mean [Right Arm] Blood Pressure Position [Right Arm] Pulse Oximetry 92 92 93 Oxygen Delivery Method Nasal Cannula Nasal Cannula Nasal Cannula Oxygen Flow Rate 4 4 4 Sepsis Recent Fever Within 48 Hours Sepsis New/Unexplained Change in Mental Status Sepsis Action Taken by Nursing 05/29/20 17:50 05/29/20 18:00 05/29/20 18:10 Temperature Temperature Source Pulse Rate 78 78 70 Pulse Rate [Right Finger] Pulse Rate from SpO2 Sensor 77 78 72 Respiratory Rate 27 H 23 30 H Respiratory Effort / Characteristics Respiratory Depth Respiratory Pattern Blood Pressure Blood Pressure [Right Arm] Blood Pressure Mean Blood Pressure Mean [Right Arm] Blood Pressure Position [Right Arm] Pulse Oximetry 94 94 92 Oxygen Delivery Method Nasal Cannula Nasal Cannula Nasal Cannula Oxygen Flow Rate 4 4 4 Sepsis Recent Fever Within 48 Hours Sepsis New/Unexplained Change in Mental Status Sepsis Action Taken by Nursing 05/29/20 18:20 05/29/20 18:30 05/29/20 18:40 Temperature Temperature Source Pulse Rate 77 68 63 Pulse Rate [Right Finger] Pulse Rate from SpO2 Sensor 72 69 67 Respiratory Rate 20 22 26 H Respiratory Effort / Characteristics Respiratory Depth Respiratory Pattern Blood Pressure 94/64 L Blood Pressure [Right Arm] Blood Pressure Mean 74 Blood Pressure Mean [Right Arm] Blood Pressure Position [Right Arm] Pulse Oximetry 92 91 92 Oxygen Delivery Method Nasal Cannula Nasal Cannula Nasal Cannula Oxygen Flow Rate 4 4 4 Sepsis Recent Fever Within 48 Hours Sepsis New/Unexplained Change in Mental Status Sepsis Action Taken by Nursing 05/29/20 18:54 05/29/20 19:00 Temperature Temperature Source Pulse Rate 81 Pulse Rate [Right Finger] Pulse Rate from SpO2 Sensor 81 Respiratory Rate 31 H Respiratory Effort / Characteristics Respiratory Depth Respiratory Pattern Blood Pressure Blood Pressure [Right Arm] Blood Pressure Mean Blood Pressure Mean [Right Arm] Blood Pressure Position [Right Arm] Pulse Oximetry 92 93 Oxygen Delivery Method Oxymask Oxymask Oxygen Flow Rate 6 4 Sepsis Recent Fever Within 48 Hours Sepsis New/Unexplained Change in Mental Status Sepsis Action Taken by Nursing Laboratory Data Attestation: I reviewed the patient's lab results. Result diagrams: 05/29/20 17:00 05/29/20 17:00 Lab Results 05/29/20 05/29/20 05/29/20 Range/Units 16:52 16:52 17:00 WBC 15.50 H (4.8-10.8) K/uL RBC 3.62 L (4.7-6.1) M/uL Hgb 11.3 L (14.0-18.0) g/dL Hct 32.9 L (42-52) % MCV 90.9 (80-100) fL MCH 31.2 (25-34) pg MCHC 34.3 (32-36) g/dL RDW Std Deviation 45.8 (36.4-46.3) fL RDW Coeff of Pj 13.8 (11.5-14.5) % Plt Count 471 H (130-400) K/uL MPV 9.6 (7.4-10.4) fL Immature Gran % (Auto) 0.2 % Neut % (Auto) 79.9 % Lymph % (Auto) 6.8 % [place] % (Auto) 13.0 % Eos % (Auto) 0.0 % Baso % (Auto) 0.1 % Neut # (Auto) 12.39 H (1.4-6.5) K/uL Lymph # (Auto) 1.05 L (1.2-3.4) K/uL [place] # (Auto) 2.01 H (0.11-0.59) K/uL Eos # (Auto) 0.00 (0-0.5) K/uL Baso # (Auto) 0.02 (0-0.2) K/uL Immature Gran # (Auto) 0.03 H (0.00-0.02) K/uL VBG pH (7.36-7.41) VBG pCO2 (38-50) mmHg VBG pO2 mmHg VBG HCO3 mmol/L VBG O2 Saturation % VBG Base Excess mEq/L Barometric Pressure mm/Hg Sodium (136-145) mmol/L Potassium (3.5-5.1) mmol/L Chloride (98-107) mmol/L Carbon Dioxide (21-32) mmol/L Anion Gap (3-11) BUN (7-18) mg/dl Creatinine (0.6-1.4) mg/dl Est Cr Clr Drug Dosing ml/min Est GFR ( Amer) Est GFR (Non-Af Amer) BUN/Creatinine Ratio (10-20) Glucose (70-99) mg/dl Calcium (8.5-10.1) mg/dl Phosphorus (2.5-4.9) mg/dl Magnesium (1.8-2.4) mg/dl Total Bilirubin (0.2-1) mg/dl Direct Bilirubin (0-0.2) mg/dl AST (15-37) U/L ALT (12-78) U/L Alkaline Phosphatase (45-117) U/L Troponin I (0-0.045) ng/ml NT-Pro-B Natriuret Pep (0-1800) pg/ml Total Protein (6.4-8.2) gm/dl Albumin (3.4-5.0) gm/dl Globulin (2.5-4.0) gm/dl Albumin/Globulin Ratio (0.9-2) Beta-Hydroxybutyric Acd (0.2-2.81) mg/dl TSH (0.300-4.500) uIu/ml [facility], [facility], NAAT NEGATIVE (NEGATIVE) 05/29/20 05/29/20 Range/Units 17:00 17:00 WBC (4.8-10.8) K/uL RBC (4.7-6.1) M/uL Hgb (14.0-18.0) g/dL Hct (42-52) % MCV (80-100) fL MCH (25-34) pg MCHC (32-36) g/dL RDW Std Deviation (36.4-46.3) fL RDW Coeff of Pj (11.5-14.5) % Plt Count (130-400) K/uL MPV (7.4-10.4) fL Immature Gran % (Auto) % Neut % (Auto) % Lymph % (Auto) % [place] % (Auto) % Eos % (Auto) % Baso % (Auto) % Neut # (Auto) (1.4-6.5) K/uL Lymph # (Auto) (1.2-3.4) K/uL [place] # (Auto) (0.11-0.59) K/uL Eos # (Auto) (0-0.5) K/uL Baso # (Auto) (0-0.2) K/uL Immature Gran # (Auto) (0.00-0.02) K/uL VBG pH 7.41 (7.36-7.41) VBG pCO2 35 L (38-50) mmHg VBG pO2 33 mmHg VBG HCO3 21 mmol/L VBG O2 Saturation 62.5 % VBG Base Excess -2.8 mEq/L Barometric Pressure 726.1 mm/Hg Sodium 132 L (136-145) mmol/L Potassium 4.4 (3.5-5.1) mmol/L Chloride 100 (98-107) mmol/L Carbon Dioxide 25 (21-32) mmol/L Anion Gap 7.0 (3-11) BUN 43 H (7-18) mg/dl Creatinine 2.05 H (0.6-1.4) mg/dl Est Cr Clr Drug Dosing 32.6 ml/min Est GFR ( Amer) 34.2 Est GFR (Non-Af Amer) 29.5 BUN/Creatinine Ratio 21.1 H (10-20) Glucose 419 H* (70-99) mg/dl Calcium 8.4 L (8.5-10.1) mg/dl Phosphorus 2.6 (2.5-4.9) mg/dl Magnesium 2.0 (1.8-2.4) mg/dl Total Bilirubin 0.7 (0.2-1) mg/dl Direct Bilirubin 0.3 H (0-0.2) mg/dl AST 36 (15-37) U/L ALT 47 (12-78) U/L Alkaline Phosphatase 110 (45-117) U/L Troponin I 0.049 H* (0-0.045) ng/ml NT-Pro-B Natriuret Pep 5549 H (0-1800) pg/ml Total Protein 6.7 (6.4-8.2) gm/dl Albumin 2.8 L (3.4-5.0) gm/dl Globulin 3.9 (2.5-4.0) gm/dl Albumin/Globulin Ratio 0.7 L (0.9-2) Beta-Hydroxybutyric Acd 3.13 H (0.2-2.81) mg/dl TSH 1.550 (0.300-4.500) uIu/ml COVID-19 Eval Order SARS-CoV-2, RNA, NAAT (NEGATIVE) Administered Medications Discontinued Medications Albuterol (Albut/Ipratrop 3mg/0.5mg Neb 3 Ml Vial) 3 ml NEB NOW STA Stop: 05/29/20 16:19 Last Admin: 05/29/20 16:33 Dose: 3 ml Documented by: [id number] Dexamethasone (Dexamethasone Sod Inj 10 Mg/Ml Vial) Confirm Administered Dose 10 mg .ROUTE .STK-MED ONE Stop: 05/29/20 17:32 Last Admin: 05/29/20 17:33 Dose: Not Given Documented by: [id number] Guaifenesin (Guaifenesin 600 Mg Tabcr) 600 mg PO NOW STA Stop: 05/29/20 16:18 Last Admin: 05/29/20 17:12 Dose: 600 mg Documented by: [id number] Dexamethasone Sodium Phosphate (10 mg/ Syringe) 2.5 mls @ 1 mls/min IV NOW STA Stop: 05/29/20 16:19 Last Admin: 05/29/20 17:33 Dose: 1 mls/min Documented by: [id number] Sodium Chloride (Nss) 500 mls @ 999 mls/hr IV .Q31M ONE Stop: 05/29/20 16:48 Last Infusion: 05/29/20 17:47 Dose: 0 mls/hr Documented by: [id number] Admin: 05/29/20 17:12 Dose: 999 mls/hr Documented by: [id number] Acetaminophen (Ofirmev) 1,000 mg in 100 mls @ 400 mls/hr IV NOW STA Stop: 05/29/20 16:34 Last Infusion: 05/29/20 17:33 Dose: 0 mls/hr Documented by: [id number] Admin: 05/29/20 17:12 Dose: 400 mls/hr Documented by: [id number] Discharge Plan Visit Data Chief Complaint: Respiratory Problems Stated Complaint: DR HARDY - LOW O2 TROUBLE BREATHING ED Provider: Jovanni Roth Discharge Problem: Acute and chronic respiratory failure with hypoxia, COPD exacerbation, Elevated troponin, Status post administration of all doses of COVID-19 vaccine series Patient Disposition: Admitted As Inpatient Discharge Instructions Interventions: ED Discharge Assessment Last Done: 05/29/20 21:07
--- NOTE | 2020-05-29 19:30 | History & Physical Report ---
Date of Service May 29, 2020 Assessment & Plan (1) COPD with emphysema: Ddx for his shortness of breath includes a mild COPD exacerbation vs. Covid-19 vaccine reaction vs. CHF exacerbation. While elevated, his BNP is lower than priors, his weight is below priors, and he does not appear volume overloaded on exam. If anything, he looks slightly hypovolemic. - has noted some additional wheezing in the last few days. He has some mildly increased shortness of breath, but no additional sputum or purulence to sputum. - Possible that Covid vaccine caused some reaction that caused bronchospasm. - Feeling better in the ED after dexamethasone and DuoNeb treatment, so will treat as if this is a mild COPD exacerbation with prednisone 40 mg x 5 days as well as standing and PRN DuoNebs. - Given mild leukocytosis and LLL consolidation, will also treat with CAP abx . - Continue home Trelegy (2) Pericardial effusion: Pericardial effusion noted on CT chest on 05/22/2020. This was assessed by Dr. Dubois in his office on 05/24/2020 with some small concern for a microperforation from his pacemaker and blood in the pericardial sac. - Given his shortness of breath and relatively low blood pressure, will get a limited echo to assess pericardial effusion. (3) Chronic diastolic (congestive) heart failure: Follows with Dr. Dubois. As above, this does not appear to be an acute exacerbation, despite some mild pulmonary vascular congestion on CXR. - Hold home Bumex x 1 day (start on 05/31/2020) (4) Hypertension: BP is 95/65 in the ED, but he appears warm and well-perfused. Has had reduced intake in the last few days, so possibly due to mild hypovolemia. - Hold tonight's amlodipine and hydralazine - Hold Bumex x 1 day, then resume after that. - Continue beta-percy for heart health (5) Uncontrolled type 2 diabetes mellitus: A1c was 11.3% in 2020. - Lower home glargine from 26 units HS to 15 units for low appetite and hospital food having less simple carbs. - Sliding scale insulin - Repeat A1c in the AM (6) CAD, multiple vessel: No chest pain or signs/symptoms of ACS. Troponin is negative at <0.05 & EKG is paced, so unable to follow for ST changes. - Continue home ASA, Plavix, ezetimibe, beta-percy, and statin (7) Hypothyroidism: TSH was 1.5 this admission. - Continue home levothyroxine 25 mcg PO daily (8) DVT prophylaxis: SCDs - Low DVT risk per admission calculator & hopeful early discharge History of Present Illness Primary Care Provider: Gene Calvo MD 80yo F w/ hx COPD, CHF, and DM who presents the day after his second Covid-19 vaccination with body aches, shortness of breath, and subjective fevers. The patient reports that a few days prior to getting his vaccination, he had a loss of appetite and just "couldn't eat." He reports some mild, intermittent wheezing as well which he reports his notices more than he does. He reports some mild shortness of breath and non-productive cough as well, though again, he is not clear when this began or if it is worse in the last few days. He received his second vaccination yesterday at 1:45pm, and he reports that by 3 or 4pm, he felt feverish, had body aches, and subjectively was more short of breath than his baseline. Allergies Allergy/AdvReac Type Severity Reaction Status Date / Time No Known Allergies Allergy Verified 05/29/20 19:51 Home Medications Medication Instructions Recorded Confirmed Type aspirin 81 mg PO Q OTHER DAY 05/23/18 05/29/20 History coenzyme Q10 [Co Q-10] 200 mg PO DAILY 05/31/19 05/29/20 History ezetimibe 10 mg tablet 10 mg PO DAILY #90 tab 07/07/19 05/29/20 Rx metoprolol succinate 25 mg 25 mg PO BID #60 tab 09/21/19 05/29/20 Rx tablet,extended release 24 hr levothyroxine 25 mcg tablet 25 mcg PO DAILY #90 tab 09/26/19 05/29/20 Rx alprazolam 0.5 mg tablet 0.5 mg PO DAILY #90 tab 01/16/20 05/29/20 Rx amlodipine 10 mg tablet 10 mg PO HS #90 tab 02/03/20 05/29/20 Rx clopidogrel 75 mg tablet 75 mg PO DAILY #90 tab 02/03/20 05/29/20 Rx insulin regular human 100 unit/mL 12 unit SUBCUT TIDM ml 02/13/20 05/29/20 History injection solution insulin glargine 100 unit/mL (3 26 unit SUBCUT HS ml 03/21/20 05/29/20 History mL) subcutaneous pen nitroglycerin 0.4 mg sublingual 0.4 mg SUBLINGUAL UD PRN #30 tabs 03/28/20 05/29/20 Rx tablet albuterol sulfate 90 mcg/actuation 2 puff INHALATION QID PRN #54 g 04/03/20 05/29/20 Rx aerosol inhaler rosuvastatin 5 mg tablet 5 mg PO Q2D #90 tab 04/05/20 05/29/20 Rx hydralazine 25 mg tablet 25 mg PO TID 90 Days #270 tab 04/09/20 05/29/20 Rx bumetanide 1 mg tablet 0.5 mg PO DAILY #45 tab 05/23/20 05/29/20 Rx fluticasone fur. 200 mcg-umeclid 1 inh INHALATION DAILY #28 ea 05/23/20 05/29/20 Rx 62.5 mcg-vilant 25 mcg inhalat.powder Past Med/Surg History Medical History (Updated 05/29/20 @ 19:55 by Td Mckinney MD) Anemia Aneurysm of abdominal aorta Benign prostatic hyperplasia with elevated prostate specific antigen (PSA) CAD, multiple vessel Carotid artery stenosis, asymptomatic Chronic kidney disease Chronic kidney disease, stage III (moderate) Chronic obstructive pulmonary disease Diabetes mellitus, type 2 Diabetic nephropathy Diverticulitis of colon Edema Elevated PSA Enteritis Herpes zoster Hypercholesterolemia Hyperkalemia Hyperlipidemia Hypertension Male erectile disorder of organic origin Myocardial Infarction Panic disorder without agoraphobia Peripheral vascular disease Pre-operative exam Proteinuria Pulmonary nodule Steroid-induced hyperglycemia Tobacco use disorder Uncontrolled type 2 diabetes mellitus Surgical History H/O aortic aneurysm repair History of partial colectomy Stented coronary artery Family History Other COPD (chronic obstructive pulmonary disease) Diabetes mellitus type 1 Prostate cancer Denies family history of Ovarian cancer Breast cancer Colorectal cancer Social History Smoking Status: Former smoker Second Hand Exposure: No; Hx Alcohol Use: No Hx Substance Use: No Preferred Language: [place] Communication Ability: Effective Hearing Ability: Normal Hospitality Host Required: No Beliefs That Will Affect Care: None marital status: Current Living Situation: Spouse current occupational status: retired current occupation: Retired Other Information That Helps Us Care for You: No Feels Safe at Home: Yes Safety Concerns: Feels Safe At This Time caffeine: Yes Dental Care, Regularly: No Physical Activity Frequency: Does not Exercise Seatbelt Use: always Sunscreen Use: No Assistive Devices: None Review of Systems Review of Systems: All systems reviewed & are unremarkable except as noted in HPI & below Physical Exam Constitutional: WD/WN, vitals as above Eyes: EOM intact bilaterally; no conjunctival abnormality ENMT: external ear and nose normal, oropharynx normal Neck: trachea midline, no thyromegaly normal visual inspection Respiratory: + labored breathing; no respiratory distress and does not use accessory muscles Auscultation: + diminished lung sounds and + abnormal I/E ratio (Extended I/E ratio); no wheezes Cardiovascular: RRR, no murmur, no edema Gastrointestinal (Abdomen): Inspection/Auscultation: abdomen normal to inspection; abdomen not distended Musculoskeletal: no cyanosis or clubbing, extremities motor strength 5/5 Skin: no rashes, warm and dry Neurologic: moves all extremities and awake Psychiatric: Orientation: alert, oriented to person and cooperative Results & Data Results & Data ([facility]) Vital Signs (Past 12 Hours) Vital Signs Temp Pulse Pulse Resp BP BP Pulse Ox 05/29/20 18:54 92 05/29/20 18:40 63 26 H 92 05/29/20 18:30 68 22 94/64 L 91 05/29/20 18:20 77 20 92 05/29/20 18:10 70 30 H 92 05/29/20 18:00 78 23 94 05/29/20 17:50 78 27 H 94 05/29/20 17:40 73 31 H 93 05/29/20 17:30 83 31 H 92 05/29/20 17:20 85 31 H 92 05/29/20 17:19 84 18 98/66 L 94 05/29/20 17:12 86 26 H 98/66 L 92 05/29/20 17:10 85 24 92 05/29/20 17:00 85 32 H 92 05/29/20 16:53 87 33 H 05/29/20 16:39 94 02/23/21 16:34 22 94 05/29/20 16:19 90 05/29/20 15:57 36.7 C 100 H 20 130/80 90 Code Status & VTE Plan VTE Prophylaxis Plan VTE Prophylaxis will be ordered: Yes PG Care Time/CCT Total # of Minutes Spent Total Time Spent with Patient: Total time spent is greater than 50% in coordination of care (as documented) at patient's floor/unit and/or counseling patient: Coding Level of Care Code 68234 Initial Inpt Care Lvl 3 Diagnoses COPD with emphysema J43.9 Pericardial effusion I31.3 Chronic diastolic (congestive) heart failure I50.32 Hypertension I10 Uncontrolled type 2 diabetes mellitus E11.65 CAD, multiple vessel I25.10 Hypothyroidism E03.9 Hypothyroidism type: acquired DVT prophylaxis Z29.9 (1) Hypothyroidism Hypothyroidism type: acquired Qualified Code(s): E03.9 - Hypothyroidism, unspecified
[2020-05-29] MEDS ORDERED: GLUCAGON FOR INJ 1 MG VIAL SQ PRN (21:56)
[2020-05-29] MEDS ORDERED: ONDANSETRON INJ 2 MG/ML 2 ML VIAL IV PRN (21:56)
[2020-05-29] MEDS ORDERED: CARBOHYDRATES FOR HYPOGLYCEMIA PO PRN (21:56)
[2020-05-29] MEDS ORDERED: GLUCOSE 40% GEL 15 GM TUBE PO PRN (21:56)
[2020-05-29] MEDS ORDERED: ACETAMINOPHEN 325 MG TAB PO PRN (21:56)
[2020-05-29] MEDS ORDERED: ALBUT/IPRATROP 3MG/0.5MG NEB 3 ML VIAL NEB PRN (21:56)
[2020-05-29] MEDS ORDERED: DEXTROSE 50% 50 ML SYRINGE IV PRN (21:56)
[2020-05-29] MEDS ORDERED: GLUCOSE 10 TABS/TUBE PO PRN (21:56)
[2020-05-29] MEDS ORDERED: INSULIN GLARGINE SOLOSTAR 100 UNITS/ML 3 ML PEN SQ SCH (22:30)
[2020-05-29] MEDS: amLODIPine BESYLATE 5 MG TAB PO SCH (23:12)
[2020-05-29] MEDS: hydrALAZINE HCL 25 MG TAB PO SCH (23:13)
[2020-05-29] MEDS: METOPROLOL SUCC 25MG EXT REL TAB PO SCH (23:14)
[2020-05-29] MEDS: ROSUVASTATIN CALCIUM 5 MG TAB PO SCH (23:15)
[2020-05-29] MEDS: cefTRIAXone SODIUM 2,000 MG in DEXTROSE 5% 50 ML IV SCH (23:16)
[2020-05-29] MEDS: INSULIN ASPART 100 UNITS/ML 3 ML PEN SC SCH (23:24)
[2020-05-29] MEDS: AZITHROMYCIN 250 MG in DEXTROSE 5% 250 ML IV SCH (23:47)
--- NOTE | 2020-05-30 03:39 | Communication Note ---
Date of Service: May 30, 2020 Nursing notified me that the patient was sweating and a POC blood sugar was 488. I ordered a pharmacy glycemic consult as the patient seems to have poorly controlled diabetes. They had been given 15U long acting insulin at 11:30PM and were then given 7U short acting later in the night, but the blood sugar continued to increase. I put in for 10U of Novolog and a recheck of the blood sugar in one hour.
[2020-05-30] MEDS ORDERED: INSULIN ASPART PER SC STA (03:45)
[2020-05-30] MEDS ORDERED: PHARMACY GLYCEMIC MGMT CONSULT PRN (03:48)
[2020-05-30] MEDS ORDERED: INSULIN HUMAN REGULAR PER UNIT 10 UNITS in SYRINGE 9.9 ML IV STA (03:51)
[2020-05-30] MEDS ORDERED: INSULIN GLARGINE SOLOSTAR 100 UNITS/ML 3 ML PEN SQ STA (04:00)
[2020-05-30] MEDS ORDERED: INSULIN ASPART 100 UNITS/ML 3 ML PEN SC ONE (04:00)
[2020-05-30] MEDS: LEVOTHYROXINE SODIUM 25 MCG TABLET PO SCH (05:53)
[2020-05-30 06:28] LABS: Hematocrit (blood only) 35.3 % (42-52); Hemoglobin 11.8 g/dL (14.0-18.0); Mean Corpuscular Hemoglobin 30.5 pg (25-34); Mean Corpuscular Hgb Conc 33.4 g/dL (32-36); Mean Corpuscular Volume 91.2 fL (80-100); Mean Platelet Volume 9.7 fL (7.4-10.4); Platelet Count 495 K/uL (130-400); RDW Standard Deviation 46.9 fL (36.4-46.3); Red Blood Count 3.87 M/uL (4.7-6.1); White Blood Count 15.32 K/uL (4.8-10.8)
[2020-05-30 07:06] LABS: BUN Creatinine Ratio 25.8 (10-20); Calcium 9.1 mg/dl (8.5-10.1); Creatinine Clr Calc Pharmacy 35.5 ml/min; Est GFR (African American) 37.5; Est GFR (Non-African American) 32.3; Magnesium 2.2 mg/dl (1.8-2.4); Potassium 4.9 mmol/L (3.5-5.1)
[2020-05-30] MEDS: ALBUT/IPRATROP 3MG/0.5MG NEB 3 ML VIAL NEB SCH ×4 (07:11→19:34)
[2020-05-30 07:16] LABS: Beta-Hydroxybutyrate 0.71 mg/dl (0.2-2.81)
[2020-05-30] MEDS: UMECLIDINIUM/VILANTEROL 62.5/25MCG 7 PUFFS/INHALER INH SCH (08:07)
[2020-05-30] MEDS: hydrALAZINE HCL 25 MG TAB PO SCH ×3 (08:07→21:02)
[2020-05-30] MEDS: FLUTICASONE FUROATE 100MCG 14 PUFFS/INHALER INH SCH (08:08)
[2020-05-30] MEDS: BUMETANIDE 1 MG TAB PO SCH (08:08)
[2020-05-30] MEDS: guaiFENesin 600 MG TABCR PO SCH ×2 (08:09→21:03)
[2020-05-30] MEDS: CLOPIDOGREL BISULFATE 75 MG TAB PO SCH (08:09)
[2020-05-30] MEDS: ASPIRIN 81 MG ECTAB PO SCH (08:09)
[2020-05-30] MEDS: predniSONE 20 MG TAB PO SCH (08:09)
[2020-05-30] MEDS: EZETIMIBE 10 MG TABLET PO SCH (08:10)
[2020-05-30] MEDS: METOPROLOL SUCC 25MG EXT REL TAB PO SCH ×2 (08:10→21:02)
[2020-05-30] MEDS: ALPRAZolam 0.5 MG TABLET PO SCH (08:11)
[2020-05-30] MEDS: INSULIN ASPART 100 UNITS/ML 3 ML PEN SC SCH ×4 (08:15→21:01)
[2020-05-30 08:29] LABS: Estimated Average Glucose 240 mg/dl
[2020-05-30] MEDS ORDERED: INSULIN HUMAN NPH SC ONE (11:30)
--- NOTE | 2020-05-30 11:31 | Pharmacy Report ---
Pharmacy Glycemic Short Note 2 - Date of Service May 30, 2020 - Glycemic Short BSG Results (Last 24 hours): 05/29/20 05/29/20 05/30/20 17:00 20:04 03:09 Glucose 419 H* POC Glucose 375 H* 497 H* 05/30/20 05/30/20 05/30/20 03:11 05:01 05:03 Glucose POC Glucose 488 H* 439 H* 441 H* 05/30/20 05/30/20 05/30/20 05:51 07:25 07:26 Glucose 383 H* POC Glucose 334 H* 349 H* 05/30/20 05/30/20 11:17 11:18 Glucose POC Glucose 390 H* 386 H* OUTPATIENT ANTIDIABETIC REGIMEN: * Lantus 26 units SQ HS * NovoLog 12 units SQ TIDM + SSI * A1c = 10% on 05/30/20 ASSESSMENT: * 80yo T2DM male with subadequate degree of outpatient glycemic control per A1c. Goal A1c likely 8.5% based on age/co-morbidities * Pt with SEVERE hyperglycemia on admission secondary to poor baseline control + dexamethasone received in ED * Pt is to continue on prednisone 40mg PO daily x 4 days. * NPH insulin is used to counteract the hyperglycemic effect of prednisone. The rationale for this approach is that the pharmacodynamics profile of NPH, with a peak effect of 4-8hrs and duration of action of 12-16hrs, mirrors the pharmacodynamics of prednisone. NPH should be dosed at the same time that prednisone is given * The dose of NPH given is dependent on the steroid dose given * For doses of prednisone 40mg/day or above NPH dose should be 0.4 units/kg - will use just slightly less since Scr is elevated, advanced age (extremely tight glycemic control not warranted). Will start with ~ 0.35 units/kg/day and titrate based on BSG trends. Pt will also be continued on outpatient basal insulin + NovoLog per CF+CR * NPH dosing above is given in addition to patients basal insulin needs PLAN FOR INPATIENT GLYCEMIC CONTROL: * Basal insulin * Lantus 30 units SQ HS (outpatient dosing is 26 units) * Steroid induced hyperglycemia * NPH 35 units SQ daily with prednisone. Will HOLD NPH if prednisone is held/dc * Bolus insulin * NovoLog per scale ACHS or Q6hrs while NPO * Goal Range: Low 100 mg/dL - High 140 mg/dL * Correction Factor: 20 mg/dL/unit * Nutritional / Prandial insulin per carb ratio of 1 unit per 7 grams CHO consumed PLAN FOR DISCHARGE: * A1c = 10% on 05/30/20 * Goal A1c is ~ 8.5% based on age/co-morbidities * Recommend titrating Lantus and NovoLog based on outpatient BSGs - may have a better idea of how to do this once inpatient trends are evaluated although the addition of prednisone will complicate this.
--- NOTE | 2020-05-30 12:04 | Electrocardiogram Report ---
Test Reason : Blood Pressure : / mmHG Vent. Rate : 088 BPM Atrial Rate : 088 BPM P-R Int : 182 ms QRS Dur : 178 ms QT Int : 452 ms P-R-T Axes : 024 -79 094 degrees QTc Int : 546 ms Atrial-sensed ventricular-paced rhythm Abnormal ECG When compared with ECG of 16-MAR-2020 15:24, Vent. rate has increased BY 21 BPM Confirmed by Gene Lu ([id number]) on 05/30/2020 12:04:11 PM Referred By: Cedrick Dubois Confirmed By:Jose Lu
[2020-05-30] MEDS ORDERED: INSULIN HUMAN REGULAR PER UNIT 10 UNITS in SYRINGE 9.9 ML IV ONE (17:30)
--- NOTE | 2020-05-30 19:00 | Hospitalist Progress Note ---
Date of Service May 30, 2020 Assessment & Plan (1) Acute respiratory failure with hypoxemia: Ford Lynn is an 80 yo M with an extensive PMHx including COPD, HFpEF, DM, HTN, hyperlipidemia, CAD, complete heart block s/p pacemaker, hypothyroidism, AAA, and BPH who is admitted on 05/29/20 with acute hypoxemic respiratory failure. Acute Hypoxemic Respiratory Failure - Multifactorial including COPD with emphysema, community acquired pneumonia, diastolic CHF, and questionable pericardial effusion - Increased oxygen requirement compared to home baseline -- currently requiring 5L (uses 2-3 at home) - See below for details Exacerbation of COPD with emphysema - Prednisone 40mg po qAM x4 days (today 04/09) and duoneb QID scheduled - Takes Trelegy at home -- continue Anoro daily during hospitalization Community Acquired Pneumonia - Leukocytosis at 15.3 - CXR 05/29/20: Cardiomegaly and mild pulmonary vascular congestion. Suspected bilateral pleural effusions left greater than right. Left lower lobe airspace opacities, atelectasis versus pneumonia. - Continue IV Azithromycin and IV Ceftriaxone - Mucinex 600mg BID - Trend CBC Diastolic Congestive Heart Failure - Possible exacerbation of HFpEF secondary to pulmonary edema - BNP = 5549 -- although this is elevated, it is not as high as previous values when patient has been in exacerbations - Continue home Bumex - Repeat TTE pending - Will need to closely monitor fluid balance - Strict Is/Os and daily weights Pericardial Effusion (possible) - ? pericardial effusion noted on chest CT on 05/22/20 - Will get repeat TTE at this time for further evaluation Uncontrolled Type 2 DM - A1c 11.3 on 02/22/20 - Repeat A1c today 10.0 - Blood sugars have been difficult to control and have gone up to high 400s. Given hx of uncontrolled DM, CKD, and now with steroids for COPD will need to continue to monitor closely. - Glycemic consult in place Hyponatremia - Possibly associated with pulmonary process vs. hypervolemia - Continue home Bumex - BMP qAM MARJORIE on CKD Stage III - Current Cr 1.9 - BMP qAM Hypertension, Hyperlipidemia, and CAD - Currently normotensive w/ no complaints of CP - Continue home amlodipine, hydralazine, Bumex, ASA, statin, Plavix, ezetimibe, and metoprolol Hypothyroidism - TSH 1.5; continue home levothyroxine Code Status: Full Code DVT Ppx: patient already on Plavix; otherwise use SCDs FEN/GI: DM/heart healthy Dispo: [facility]/tele (2) COPD with emphysema: (3) Community acquired pneumonia: (4) Chronic diastolic (congestive) heart failure: (5) Pericardial effusion: (6) Uncontrolled type 2 diabetes mellitus: (7) Hyponatremia: (8) MARJORIE (acute kidney injury): (9) Chronic kidney disease, stage III (moderate): (10) Hypercholesterolemia: (11) Hypertension: (12) CAD, multiple vessel: (13) Hypothyroidism: Admission and Anticipated Discharge Date Admission Date: May 29, 2020 Supervising Physician Co-Signing Physician Notes Patient seen and examined with PGY-1 Dr. Herrera. Agree with history, exam findings, assessment and plan of care as outlined. In brief, Mr. Lynn is an 80 year male with history of COPD, CHF, DM, CKD State 3, CAD and TIA admitted with worsening dyspnea and increasing supplemental oxygen requirement. Today, he feels that his breathing is a bit better. VS and nursing notes reviewed. Heart with regular rate and rhythm. Pacer pocket is palpable. Speaking in full sentences. Does get a bit winded with lots of talking. Fair air movement throughout but diminished at the bases. 1. Dyspnea secondary to COPD exacerbation and CAP. Increased O2 requirement. Home baseline is 2-3L. Currently needing 4-5L. Wean O2 as able. Chest xray on admission with left lower lobe consolidation and effusion. 2. COPD exacerbation. Prednisone 40mg daily, duonebs. Continue Anoro inhaler (home inhaler Trelegy). 3. CAP. Continue azithro and ceftriaxone. 4. HFpEF in mild exacerbation. New pleural effusion. Resume home bumex. Monitor I/Os and daily weights. 5. Pericardial effusion--?enlarging. Seen on CT in the past and follow up echo at cardiology showed minimal effusion. However, on CT there was concern that the density of the fluid was increased and possibly consistent with blood due to microperf from pacer. Waiting for follow up echo here to evaluate whether there is new fluid collection contributing to worsening dyspnea. 6. DM. A1C 10. Appreciate glycemic consult, especially in light of steroid use. 7. Hyponatremia. Likely due to pulmonary process as well as slight hypervolemia. Home bumex restarted. Recheck Na in the morning. 8. HTN, CAD, hx TIA. Stable. Continue home medsamlodipine, hydralazine, metoprolol, ASA, Plavix, ezetimibe, crestor 9. MARJORIE in the setting of known CKD, Stage 3. Stable. Cr is trending down from admission to near baseline. Dispo: pending clinical improvement. Subjective Patient seen and evaluated at bedside this morning. He states that he overall feels much better than he did on presentation to the ED. However, patient is still requiring increased oxygen requirements from baseline (currently at 5L, at baseline between 2-3L O2). Patient with no specific complaints or concerns at this time. Tolerating PO intake well without difficulty. Denies fever, nausea, vomiting, abdominal pain, or chest pain. Review of Systems Review of Systems: See HPI Physical Exam Physical Exam: GENERAL: No acute distress. Well developed and well nourished. Vital signs reviewed. EYES: EOMI. Anicteric sclerae. HENT: Moist mucous membranes. RESPIRATORY: 5L supplemental O2 via NC. Able to speak in full sentences but after multiple sequential sentences has increased SOB. Poor air movement. Crackles in bilateral lower lung alfonso. CARDIOVASCULAR: Regular rate and rhythm. ABDOMEN: Soft, non-tender and non-distended. Normal bowel sounds. EXTREMITIES: No edema. Non-tender. NEUROLOGIC: A/O x3. No focal neurological deficits. PSYCHIATRIC: Cooperative. Appropriate mood and affect. Results & Data Results & Data ([facility]) Vital Signs (Past 12 Hours) Vital Signs Temp Pulse Pulse Resp BP Pulse Ox 05/30/20 15:15 36.6 C 65 18 113/55 L 90 05/30/20 14:47 60 16 92 05/30/20 11:30 36.4 C L 71 22 114/58 L 92 05/30/20 11:03 79 21 90 05/30/20 07:33 35.6 C L 60 22 134/80 91 05/30/20 07:26 60 05/30/20 07:11 60 19 91 Resident Activity Tracking Resident Involvement: Resident Care Provided Care Provided: [facility] (1) Hypothyroidism Hypothyroidism type: acquired Qualified Code(s): E03.9 - Hypothyroidism, unspecified
[2020-05-30] MEDS ORDERED: INSULIN REGULAR 250 UNITS in SODIUM CHLORIDE 0.9% 247.5 ML IV SCH (19:30)
[2020-05-30] MEDS ORDERED: INSULIN GLARGINE SOLOSTAR 100 UNITS/ML 3 ML PEN SQ SCH (21:00)
[2020-05-30] MEDS: amLODIPine BESYLATE 5 MG TAB PO SCH (21:02)
[2020-05-30] MEDS: AZITHROMYCIN 250 MG in DEXTROSE 5% 250 ML IV SCH (22:03)
[2020-05-30] MEDS: cefTRIAXone SODIUM 2,000 MG in DEXTROSE 5% 50 ML IV SCH (22:03)
[2020-05-31] MEDS ORDERED: INSULIN ASPART 100 UNITS/ML 3 ML PEN SC SCH
[2020-05-31] MEDS: LEVOTHYROXINE SODIUM 25 MCG TABLET PO SCH (06:00)
[2020-05-31 06:12] LABS: Hematocrit (blood only) 32.4 % (42-52); Mean Corpuscular Hemoglobin 30.4 pg (25-34); Mean Corpuscular Volume 89.5 fL (80-100); Mean Platelet Volume 9.5 fL (7.4-10.4); Platelet Count 507 K/uL (130-400); RDW Coefficient of Variation 13.7 % (11.5-14.5); RDW Standard Deviation 45.4 fL (36.4-46.3); Red Blood Count 3.62 M/uL (4.7-6.1); White Blood Count 23.87 K/uL (4.8-10.8)
[2020-05-31 06:13] LABS: Basophils # (auto) 0.01 K/uL (0-0.2); Immature Granulocytes # (auto) 0.08 K/uL (0.00-0.02); Immature Granulocytes % (auto) 0.3 %; Lymphocytes # (auto) 1.16 K/uL (1.2-3.4); Lymphocytes % (auto) 4.9 %; Monocytes # (auto) 1.53 K/uL (0.11-0.59); Monocytes % (auto) 6.4 %; Neutrophils # (auto) 21.09 K/uL (1.4-6.5); Neutrophils % (auto) 88.4 %
[2020-05-31 06:24] LABS: BUN Creatinine Ratio 34.1 (10-20); Creatinine Clr Calc Pharmacy 38.3 ml/min; Est GFR (African American) 41.1; Est GFR (Non-African American) 35.5; Potassium 4.2 mmol/L (3.5-5.1)
[2020-05-31] MEDS: ALBUT/IPRATROP 3MG/0.5MG NEB 3 ML VIAL NEB SCH (07:03)
[2020-05-31] MEDS: INSULIN ASPART 100 UNITS/ML 3 ML PEN SC SCH ×5 (07:50→20:37)
[2020-05-31] MEDS: UMECLIDINIUM/VILANTEROL 62.5/25MCG 7 PUFFS/INHALER INH SCH (08:07)
[2020-05-31] MEDS: FLUTICASONE FUROATE 100MCG 14 PUFFS/INHALER INH SCH (08:07)
[2020-05-31] MEDS: BUMETANIDE 1 MG TAB PO SCH (08:08)
[2020-05-31] MEDS: EZETIMIBE 10 MG TABLET PO SCH (08:08)
[2020-05-31] MEDS: ROSUVASTATIN CALCIUM 5 MG TAB PO SCH (08:08)
[2020-05-31] MEDS: CLOPIDOGREL BISULFATE 75 MG TAB PO SCH (08:08)
[2020-05-31] MEDS: guaiFENesin 600 MG TABCR PO SCH ×2 (08:08→20:32)
[2020-05-31] MEDS: hydrALAZINE HCL 25 MG TAB PO SCH ×3 (08:09→20:32)
[2020-05-31] MEDS: METOPROLOL SUCC 25MG EXT REL TAB PO SCH ×2 (08:10→20:33)
[2020-05-31] MEDS: predniSONE 20 MG TAB PO SCH (08:10)
[2020-05-31] MEDS: ALPRAZolam 0.5 MG TABLET PO SCH (08:15)
[2020-05-31] MEDS ORDERED: INSULIN HUMAN NPH SC SCH ×2 (09:00)
[2020-05-31] MEDS: FAMOTIDINE 20 MG TAB PO SCH (09:42)
[2020-05-31] MEDS: ALBUTEROL HFA 8 GM INHALER INH SCH ×3 (10:50→19:15)
--- NOTE | 2020-05-31 11:23 | Pharmacy Report ---
Pharmacy Glycemic Short Note 2 - Date of Service May 31, 2020 - Glycemic Short BSG Results (Last 24 hours): 05/30/20 05/30/20 05/30/20 11:17 11:18 16:44 Glucose POC Glucose 390 H* 386 H* 439 H* 05/30/20 05/30/20 05/30/20 16:45 19:12 19:14 Glucose POC Glucose 446 H* 486 H* 483 H* 05/30/20 05/30/20 05/30/20 20:57 21:56 23:00 Glucose POC Glucose 406 H* 360 H* 323 H* 05/30/20 05/31/20 05/31/20 23:59 01:00 01:58 Glucose POC Glucose 344 H* 323 H* 254 H 05/31/20 05/31/20 05/31/20 02:56 04:01 05:01 Glucose POC Glucose 207 H 168 H 125 H 05/31/20 05/31/20 05/31/20 05:25 05:52 07:00 Glucose 106 H POC Glucose 103 H 103 H 05/31/20 05/31/20 05/31/20 07:58 08:55 10:59 Glucose POC Glucose 96 195 H 261 H OUTPATIENT ANTIDIABETIC REGIMEN: * Lantus 26 units SQ HS * NovoLog 12 units SQ TIDM + SSI * A1c = 10% on 05/30/20 ASSESSMENT: 05/31/20: * SEVERE hyperglycemia persisted despite large doses of NPH + NovoLog given. IV insulin infusion initiated at dinnertime. * Pt required ~ average of 5 units/hr from dinner yesterday to breakfast this morning to gain adequate glycemic control * Pt also received slightly stressed outpatient dosing of basal insulin Lantus 30 units HS last night * AM BSG this morning 103, 106 mg/dl. Initiated IV insulin infusion transition to SQ basal bolus. * NPH 35 units + NovoLog CHO coverage to be given with breakfast - then may dc IV insulin insulin infusion ~ 1 hr after given. * Unfortunately - error in NovoLog dosing given (given 3 units instead of 11 units) to cover CHO for breakfast, therefore rebound hyperglycemia occurred. Will correct and lunchtime (will not change CF/CR parameters) and continue to monitor BSGs Q4hrs. * Prednisone continues at 40 mg PO daily. Will continue with NPH ~0.4 units/kg to cover steroid induced hyperglycemia * Continue stressed outpatient dosing of Lantus (will dose based on BSG) * Continue stressed NovoLog dosing. 05/30/20: * 80yo T2DM male with subadequate degree of outpatient glycemic control per A1c. Goal A1c likely 8.5% based on age/co-morbidities * Pt with SEVERE hyperglycemia on admission secondary to poor baseline control + dexamethasone received in ED * Pt is to continue on prednisone 40mg PO daily x 4 days. * NPH insulin is used to counteract the hyperglycemic effect of prednisone. The rationale for this approach is that the pharmacodynamics profile of NPH, with a peak effect of 4-8hrs and duration of action of 12-16hrs, mirrors the pharmacodynamics of prednisone. NPH should be dosed at the same time that prednisone is given * The dose of NPH given is dependent on the steroid dose given * For doses of prednisone 40mg/day or above NPH dose should be 0.4 units/kg - will use just slightly less since Scr is elevated, advanced age (extremely tight glycemic control not warranted). Will start with ~ 0.35 units/kg/day and titrate based on BSG trends. Pt will also be continued on outpatient basal insulin + NovoLog per CF+CR * NPH dosing above is given in addition to patients basal insulin needs PLAN FOR INPATIENT GLYCEMIC CONTROL: * Basal insulin * Lantus SQ HS (outpatient dosing is 26 units) * BSG below 120 mg/dl --> 25 units * BSG 120-180 mg/dl --> 30 units * BSG above 180 mg/dl --> 35 units * Steroid induced hyperglycemia * NPH 35 units SQ daily with prednisone x 4 days. Will HOLD NPH if prednisone is held/dc * Bolus insulin * NovoLog per scale ACHS or Q6hrs while NPO * Goal Range: Low 100 mg/dL - High 140 mg/dL * Correction Factor: 15 mg/dL/unit * Nutritional / Prandial insulin per carb ratio of 1 unit per 5 grams CHO consumed PLAN FOR DISCHARGE: * A1c = 10% on 05/30/20 * Goal A1c is ~ 8.5% based on age/co-morbidities * Recommend titrating Lantus and NovoLog based on outpatient BSGs - may have a better idea of how to do this once inpatient trends are evaluated although the addition of prednisone will complicate this.
--- NOTE | 2020-05-31 11:39 | XCELERA ---
[id number]
[2020-05-31] MEDS ORDERED: BUMETANIDE 1 MG TAB PO ONE (14:18)
--- NOTE | 2020-05-31 16:45 | Medical Student Progress Note ---
Date of Service May 31, 2020 Assessment & Plan (1) COPD exacerbation: Pt is now considered on day 3 corticosteroid treatment with prednisone 40 mg daily and will finish the five day course. Pepcid is started for GI prophylaxis. Duonebs are switched to PRN. Anoro home inhaler is scheduled. (2) Community acquired pneumonia: Pt will continue on azithromycin and ceftriaxone for community acquired pneumonia. Mucinex was given to help with phlegm buildup. (3) Chronic diastolic (congestive) heart failure: Pt has a history of diastolic heart failure. Pt had repeat echo done which showed grade II diastolic dysfunction with mild concentric left ventricular hypertrophy, and moderately dilated IVC. EF was determined to be 55-60%. Pt had some mild edema today and will be treated with an extra 0.5 mg Bumex in light of improving kidney function. (4) Chronic kidney disease, stage III (moderate): Pt presented with a creatinine of 2.05. Today, pt's creatinine was 1.76 with a BUN of 60. Pt will continue to have creatinine monitored in light of CKD stage III diagnosis and use of Bumex for diuresis. (5) Pericardial effusion: Pt had a CT done in the past that showed minimal effusion. Due to concern that the CT showed that the density of the fluid was increased and could indicate a microperforation from the pacer, an echo was ordered. Echo showed evidence of a very small pericardial effusion which was deemed not clinically related to the pt's symptoms with immediate treatment not needed at this time. (6) Uncontrolled type 2 diabetes mellitus: Pt was admitted with an A1C of 10. Pt had a glycemic consult in light of A1C and prednisone use. Per glycemic consult, pt will continue NPH 0.4 units/kg to cover for steroid induced hyperglycemia. Additionally, pt will continue stressed outpatient dosing of Lantus and stressed NovoLog dosing. Blood sugar will continue to be monitored as patient progresses with prednisone treatment. (7) Hyponatremia: Pt presented with hyponatremia with a sodium of 132. This is likely from pt's fluid retention in light of diastolic heart failure. Pt's sodium is now with in normal range and is up to 136. Pt's sodium will continue to be monitored as pt is being treated with Bumex. (8) Leukocytosis: Pt presented with a leukocytosis of 15.5 which is now 23.87. Leukocytosis most likely worsened due to steroid use. Repeat CBC tomorrow for monitoring leukocytosis. (9) CAD, multiple vessel: Pt will continue to take Crestor, ezetimibe. (10) Acute and chronic respiratory failure with hypoxia: Admission and Anticipated Discharge Date Admission Date: May 29, 2020 Supervising Attestation Patient seen and examined with PGY-1 Dr. Herrera. Agree with history, exam findings, assessment and plan of care as outlined. In brief, Mr. Lynn is an 80 year male with history of COPD, CHF, DM, CKD State 3, CAD and TIA admitted with worsening dyspnea and increasing supplemental oxygen requirement. Today, he feels that his breathing is a bit better. Did require insulin gtt overnight. VS and nursing notes reviewed. Heart with regular rate and rhythm. Pacer pocket is palpable. Speaking in full sentences. Does get a bit winded with lots of talking. Wheezing throughout. Fair air movement in the upper lung alfonso but diminished with crackles at the bases. 1. Acute hypoxic respiratory failure secondary to COPD exacerbation and CAP. Home baseline is 2-3L. Currently needing 4L. Wean O2 as able. Chest xray on admission with left lower lobe consolidation and effusion. 2. COPD exacerbation. Prednisone 40mg daily, duonebs. Continue Anoro inhaler (home inhaler Trelegy). Continue mucinex. Start flutter valve. 3. CAP. Continue azithro and ceftriaxone. 4. HFpEF in mild exacerbation. New pleural effusion on admission. Continue home bumex 0.5mg, added a second dose today as he is in positive fluid balance. Monitor I/Os and daily weights. 5. Leukocytosis. Secondary to demargination from steroid use. 6. DM. A1C 10. Uncontrolled and now worse with prednisone use. Appreciate glycemic consult assistance. 7. Pericardial effusionresolved. Repeat TTE here without evidence of effusion. 8. Hyponatremia. Resolved. 9. HTN, CAD, hx TIA. Stable. Continue home medsamlodipine, hydralazine, metoprolol, ASA, Plavix, ezetimibe, crestor 9. MARJORIE in the setting of known CKD, Stage 3. Stable. Cr is trending down from admission to near baseline. Dispo: pending clinical improvement. Subjective Pt is an 80 y/o male with a history of COPD with emphysema, chronic diastolic heart failure, chronic hypoxic respiratory failure on home O2, type 2 diabetes, CKD, and CAD that presented to the emergency department after having worsening shortness of breath and chest tightness following his second COVID-19 vaccination the day prior. Today the pt feels much better than the day prior. Pt admits to feeling a some chest congestion and shortness of breath primarily while walking to the bathroom. Pt feels that these symptoms have improved since yesterday. Pt was told that his blood sugar had elevated after receiving prednisone for his COPD exacerbation but pt is comfortable with the new course of blood sugar management after speaking with the glycemic consult. Pt denies any chest pain or tightness today. Pt feels that he is progressing and should be ready to go home once "he gets his strength back". Review of Systems Constitutional: no fever and no chills Pt admits to some fatigue that has improved from yesterday. Eyes: Denies changes in vision. Respiratory: Pt has some chest congestion and shortness of breath during exertion. Cardiovascular: no chest pain and no edema Gastrointestinal: no abdominal pain, no nausea, no constipation and no diarrhea/loose stools Genitourinary: no dysuria Musculoskeletal: Pt admits to some diffuse muscle weakness. Neurologic: no tremor(s) Endocrine: + fatigue Physical Exam Eyes: EOM intact bilaterally; no nystagmus Respiratory: normal respiratory effort, lungs clear to auscultation Cardiovascular: RRR, no murmur, no edema Heart Sounds: no click, no gallop, no murmur and no cardiac rub Vessels: no carotid bruit Gastrointestinal (Abdomen): Percussion/Palpation: abdomen soft; abdomen nontender and no hepatomegaly Neurologic: deep tendon reflexes 2+ bilaterally Psychiatric: Orientation: alert and cooperative Results & Data ([facility]) Vital Signs (Past 12 Hours) Vital Signs Temp Pulse Resp BP Pulse Ox 05/31/20 15:19 79 18 95 05/31/20 14:45 36.2 C L 86 16 107/67 95 05/31/20 11:30 36.3 C L 98 H 17 125/71 92 05/31/20 10:50 73 16 94 05/31/20 07:47 36.4 C L 68 18 125/64 97 05/31/20 07:05 81 18 95
[2020-05-31] MEDS: amLODIPine BESYLATE 5 MG TAB PO SCH (20:33)
[2020-05-31] MEDS: INSULIN GLARGINE SOLOSTAR 100 UNITS/ML 3 ML PEN SQ SCH (20:38)
[2020-05-31] MEDS: cefTRIAXone SODIUM 2,000 MG in DEXTROSE 5% 50 ML IV SCH (22:06)
[2020-05-31] MEDS: AZITHROMYCIN 250 MG in DEXTROSE 5% 250 ML IV SCH ×2 (22:07→22:51)
[2020-06-01] MEDS: INSULIN ASPART 100 UNITS/ML 3 ML PEN SC SCH ×6 (00:20→20:29)
[2020-06-01] MEDS: LEVOTHYROXINE SODIUM 25 MCG TABLET PO SCH (06:05)
[2020-06-01] MEDS: ALBUTEROL HFA 8 GM INHALER INH SCH ×4 (07:19→19:08)
[2020-06-01 07:32] LABS: Basophils # (auto) 0.01 K/uL (0-0.2); Basophils % (auto) 0.1 %; Eosinophils # (auto) 0.01 K/uL (0-0.5); Eosinophils % (auto) 0.1 %; Hematocrit (blood only) 34.8 % (42-52); Hemoglobin 11.9 g/dL (14.0-18.0); Immature Granulocytes # (auto) 0.04 K/uL (0.00-0.02); Immature Granulocytes % (auto) 0.2 %; Lymphocytes % (auto) 8.1 %; Mean Corpuscular Hemoglobin 30.7 pg (25-34); Mean Corpuscular Hgb Conc 34.2 g/dL (32-36); Mean Corpuscular Volume 89.7 fL (80-100); Mean Platelet Volume 9.4 fL (7.4-10.4); Monocytes % (auto) 6.5 %; Platelet Count 527 K/uL (130-400); RDW Coefficient of Variation 13.9 % (11.5-14.5); RDW Standard Deviation 45.6 fL (36.4-46.3); Red Blood Count 3.88 M/uL (4.7-6.1); White Blood Count 18.56 K/uL (4.8-10.8)
--- NOTE | 2020-06-01 07:41 | Pharmacy Report ---
Pharmacy Glycemic Short Note 2 - Date of Service June 01, 2020 - Glycemic Short BSG Results (Last 24 hours): 05/31/20 05/31/20 05/31/20 07:58 08:55 10:59 POC Glucose 96 195 H 261 H 05/31/20 05/31/20 06/01/20 16:22 20:32 00:11 POC Glucose 233 H 260 H 324 H* 06/01/20 06/01/20 03:48 07:28 POC Glucose 225 H 128 H OUTPATIENT ANTIDIABETIC REGIMEN: * Lantus 26 units SQ HS * NovoLog 12 units SQ TIDM + SSI * A1c = 10% on 05/30/20 ASSESSMENT: 06/01/20: * CY transitioned from insulin infusion to SQ insulin yesterday * BSGs elevated following transition, 233, 260, 324, and 225 mg/dL * Patient received 128 units of SQ insulin in addition to ~48 units of insulin via insulin infusion * Fasting BSG this morning of 128 mg/dL (received 70 units of basal) * Continues on prednisone 40 mg PO daily for 2 more days * Will increase NPH to 40 units with prednisone this morning and tighten breakfast Novolog 05/31/20: * SEVERE hyperglycemia persisted despite large doses of NPH + NovoLog given. IV insulin infusion initiated at dinnertime. * Pt required ~ average of 5 units/hr from dinner yesterday to breakfast this morning to gain adequate glycemic control * Pt also received slightly stressed outpatient dosing of basal insulin Lantus 30 units HS last night * AM BSG this morning 103, 106 mg/dl. Initiated IV insulin infusion transition to SQ basal bolus. * NPH 35 units + NovoLog CHO coverage to be given with breakfast - then may dc IV insulin insulin infusion ~ 1 hr after given. * Unfortunately - error in NovoLog dosing given (given 3 units instead of 11 units) to cover CHO for breakfast, therefore rebound hyperglycemia occurred. Will correct and lunchtime (will not change CF/CR parameters) and continue to monitor BSGs Q4hrs. * Prednisone continues at 40 mg PO daily. Will continue with NPH ~0.4 units/kg to cover steroid induced hyperglycemia * Continue stressed outpatient dosing of Lantus (will dose based on BSG) * Continue stressed NovoLog dosing. 05/30/20: * 80yo T2DM male with subadequate degree of outpatient glycemic control per A1c. Goal A1c likely 8.5% based on age/co-morbidities * Pt with SEVERE hyperglycemia on admission secondary to poor baseline control + dexamethasone received in ED * Pt is to continue on prednisone 40mg PO daily x 4 days. * NPH insulin is used to counteract the hyperglycemic effect of prednisone. The rationale for this approach is that the pharmacodynamics profile of NPH, with a peak effect of 4-8hrs and duration of action of 12-16hrs, mirrors the pharmacodynamics of prednisone. NPH should be dosed at the same time that prednisone is given * The dose of NPH given is dependent on the steroid dose given * For doses of prednisone 40mg/day or above NPH dose should be 0.4 units/kg - will use just slightly less since Scr is elevated, advanced age (extremely tight glycemic control not warranted). Will start with ~ 0.35 units/kg/day and titrate based on BSG trends. Pt will also be continued on outpatient basal insulin + NovoLog per CF+CR * NPH dosing above is given in addition to patients basal insulin needs PLAN FOR INPATIENT GLYCEMIC CONTROL: * Basal insulin - continue * Lantus SQ HS (outpatient dosing is 26 units) * Continue HS scale (25-35 units) - see EHR for details * Steroid induced hyperglycemia - increase * NPH 40 units SQ daily with prednisone 40 mg PO daily. Will HOLD NPH if prednisone is held/dc * Bolus insulin - tighten carb ratio * NovoLog per scale ACHS or Q6hrs while NPO * Goal Range: Low 100 mg/dL - High 140 mg/dL * Correction Factor: 15 mg/dL/unit * Nutritional / Prandial insulin per carb ratio of 1 unit per 4.5 grams CHO consumed PLAN FOR DISCHARGE: * A1c = 10% on 05/30/20 * Goal A1c is ~ 8.5% based on age/co-morbidities * Recommend titrating Lantus and NovoLog based on outpatient BSGs - may have a better idea of how to do this once inpatient trends are evaluated although the addition of prednisone will complicate this.
[2020-06-01 07:59] LABS: BUN Creatinine Ratio 34.5 (10-20); Calcium 8.9 mg/dl (8.5-10.1); Creatinine Clr Calc Pharmacy 37.8 ml/min; Est GFR (African American) 40.8; Est GFR (Non-African American) 35.2; Potassium 4.4 mmol/L (3.5-5.1)
[2020-06-01] MEDS: UMECLIDINIUM/VILANTEROL 62.5/25MCG 7 PUFFS/INHALER INH SCH (08:11)
[2020-06-01] MEDS: FLUTICASONE FUROATE 100MCG 14 PUFFS/INHALER INH SCH (08:12)
[2020-06-01] MEDS: predniSONE 20 MG TAB PO SCH (08:15)
[2020-06-01] MEDS: METOPROLOL SUCC 25MG EXT REL TAB PO SCH ×2 (08:15→20:10)
[2020-06-01] MEDS: ASPIRIN 81 MG ECTAB PO SCH (08:17)
[2020-06-01] MEDS: EZETIMIBE 10 MG TABLET PO SCH (08:17)
[2020-06-01] MEDS: hydrALAZINE HCL 25 MG TAB PO SCH ×3 (08:17→20:10)
[2020-06-01] MEDS: BUMETANIDE 1 MG TAB PO SCH (08:17)
[2020-06-01] MEDS: FAMOTIDINE 20 MG TAB PO SCH (08:17)
[2020-06-01] MEDS: guaiFENesin 600 MG TABCR PO SCH ×2 (08:18→20:10)
[2020-06-01] MEDS: ALPRAZolam 0.5 MG TABLET PO SCH (08:20)
[2020-06-01] MEDS: CLOPIDOGREL BISULFATE 75 MG TAB PO SCH (08:46)
[2020-06-01] MEDS ORDERED: INSULIN HUMAN NPH SC SCH (09:00)
--- NOTE | 2020-06-01 13:29 | Medical Student Progress Note ---
Date of Service June 01, 2020 Assessment & Plan (1) COPD exacerbation: Pt is now considered on day 4 corticosteroid treatment with prednisone 40 mg daily. Pt is current oxygen needs are 4L via nasal cannula compared to usual 2L/3L home regimen. Continue prednisone 40 mg daily and finish the five day course. Pepcid is used for GI prophylaxis. Duonebs are switched to PRN. Anoro home inhaler is scheduled. Continue to progress pt toward home regimen of 2L/3L O2 as tolerated by pt. Pt is encouraged to ambulate and utilize incentive spirometer. (2) Community acquired pneumonia: Pt will continue on azithromycin and ceftriaxone for community acquired pneumonia. Mucinex was given to help with phlegm buildup. (3) Chronic diastolic (congestive) heart failure: Pt has a history of diastolic heart failure. Pt had repeat echo done which showed grade II diastolic dysfunction with mild concentric left ventricular hypertrophy, and moderately dilated IVC. EF was determined to be 55-60%. Pt shows no evidence of fluid overload today with no pedal edema evident. Pt will continue on normal home Bumex regimen. (4) Chronic kidney disease, stage III (moderate): Pt presented with a creatinine of 2.05. Today, pt's creatinine is 1.77 with a BUN of 61. Pt will continue to have creatinine monitored in light of CKD stage III diagnosis and use of home dose of Bumex for diuresis. (5) Uncontrolled type 2 diabetes mellitus: Pt was admitted with an A1C of 10. Pt had a glycemic consult in light of A1C and prednisone use. Per glycemic consult, pt will continue NPH 0.4 units/kg to cover for steroid induced hyperglycemia. Additionally, pt will continue stressed outpatient dosing of Lantus and stressed NovoLog dosing. Blood glucose was 136 today (compared to 106 yesterday) and will continue to be monitored in light of prednisone therapy. (6) Leukocytosis: Pt presented with a leukocytosis of 15.5 which was 23.87 yesterday. Today it is now 18.56. Leukocytosis most likely worsened due to steroid use. Continue to monitor for leukocytosis and repeat CBC tomorrow. (7) CAD, multiple vessel: Pt will continue to take Crestor, ezetimibe. (8) Anemia: Pt presented with a Hgb of 11.3 which has improved to 11.9 today. Hct was 32.9% upon admission which is now 34.8%. Anemia is likely dilutional due to IV fluids. Repeat CBC to monitor for worsening anemia. Admission and Anticipated Discharge Date Admission Date: May 29, 2020 Supervising Attestation Attending attestation Pt seen and examined in concert with Dr. Herrera/Std. Dr. Ramos. In agreement with the documented findings as noted in the student/resident documentation with any exceptions or additions as noted here. Gradual improvement in cough frequency and productivity with flutter valve, adherent to IS use as well. Feeling much looser in chest and easier to breathe. Reports no n/v/d/c, REED, vision changes, CP, n/t/w. On examination, diffuse expiratory wheeze with scattered rhonchi 15 minutes following inh treatment with improvement, S1/S2 nl RRR no MCG. Abd NT/ND BS+ COPD with acute exacerbation atop chronic hypoxic respiratory failure on 2-3L O2 @ home - day 4/5 prednisone burst. Continue INH w/ PRN duoneb Pneumonia, community acquired - day 4 azithro/ceftriaxone, likely taper to azithro PO to complete 5 day course CKDIII - Cr at baseline DMII, uncontrolled, w/ steroid induced hyperglycemia - glycemic consult - tolerating coverage without complaint h/o CAD - continue statin therapy, ezetimibe Else see student/resident documentation as noted. Subjective Pt is an 80 y/o male with a history of COPD with emphysema, chronic diastolic heart failure, chronic hypoxic respiratory failure on home O2, type 2 diabetes, CKD, and CAD that presented to the emergency department after having worsening shortness of breath and chest tightness following his second COVID-19 vaccination the day prior. Today pt admits to some SOB, cough, weakness that is about the same as yesterday. He is motivated to use the incentive spirometer and continue to progress back to his home 2L regimen of oxygen. Admits that he isnt the best about his compliance with home oxygen. Review of Systems Constitutional: no fever and no chills Eyes: no worsening vision Respiratory: Some SOB, cough, weakness that is about the same as yesterday Cardiovascular: no chest pain and no palpitations Gastrointestinal: no abdominal pain, no nausea and no vomiting Neurologic: no tingling and no numbness Physical Exam Eyes: EOM intact bilaterally Respiratory: Some rales present diffusely on auscultation. Cardiovascular: Rate/Rhythm: regular rate and regular rhythm Heart Sounds: normal S1 and normal S2; no click, no gallop, no murmur and no cardiac rub Vessels: no carotid bruit Extremities: no edema Gastrointestinal (Abdomen): Inspection/Auscultation: normal bowel sounds Percussion/Palpation: abdomen soft; abdomen nontender Neurologic: deep tendon reflexes 2+ bilaterally Results & Data ([facility]) Vital Signs (Past 12 Hours) Vital Signs Temp Pulse Pulse Resp BP Pulse Ox 06/01/20 11:30 36.5 C 60 18 122/72 94 06/01/20 11:11 68 20 95 06/01/20 07:52 36.9 C 86 16 159/66 H 95 06/01/20 07:43 64 06/01/20 07:21 91 H 20 91 06/01/20 04:23 36.5 C 73 22 92/64 L 91
[2020-06-01] MEDS: amLODIPine BESYLATE 5 MG TAB PO SCH (20:10)
[2020-06-01] MEDS: INSULIN GLARGINE SOLOSTAR 100 UNITS/ML 3 ML PEN SQ SCH (20:27)
[2020-06-01] MEDS: cefTRIAXone SODIUM 2,000 MG in DEXTROSE 5% 50 ML IV SCH (21:33)
[2020-06-01] MEDS: AZITHROMYCIN 250 MG in DEXTROSE 5% 250 ML IV SCH (22:34)
[2020-06-02] MEDS ORDERED: AZITHROMYCIN 250 MG TAB PO SCH
[2020-06-02] MEDS: LEVOTHYROXINE SODIUM 25 MCG TABLET PO SCH (06:12)
[2020-06-02] MEDS: ALBUTEROL HFA 8 GM INHALER INH SCH ×3 (08:13→15:38)
[2020-06-02 08:59] LABS: Basophils # (auto) 0.01 K/uL (0-0.2); Basophils % (auto) 0.1 %; Eosinophils # (auto) 0.02 K/uL (0-0.5); Eosinophils % (auto) 0.1 %; Hematocrit (blood only) 38.4 % (42-52); Hemoglobin 13.1 g/dL (14.0-18.0); Immature Granulocytes # (auto) 0.13 K/uL (0.00-0.02); Immature Granulocytes % (auto) 0.8 %; Lymphocytes % (auto) 16.1 %; Mean Corpuscular Hemoglobin 30.6 pg (25-34); Mean Corpuscular Hgb Conc 34.1 g/dL (32-36); Mean Corpuscular Volume 89.7 fL (80-100); Mean Platelet Volume 9.6 fL (7.4-10.4); Monocytes # (auto) 1.14 K/uL (0.11-0.59); Monocytes % (auto) 7.3 %; Neutrophils # (auto) 11.74 K/uL (1.4-6.5); Neutrophils % (auto) 75.6 %; Platelet Count 623 K/uL (130-400); RDW Coefficient of Variation 13.9 % (11.5-14.5); RDW Standard Deviation 45.6 fL (36.4-46.3); Red Blood Count 4.28 M/uL (4.7-6.1); White Blood Count 15.54 K/uL (4.8-10.8)
[2020-06-02] MEDS ORDERED: INSULIN HUMAN NPH SC SCH (09:00)
[2020-06-02] MEDS: predniSONE 20 MG TAB PO SCH (09:29)
[2020-06-02] MEDS: METOPROLOL SUCC 25MG EXT REL TAB PO SCH (09:29)
[2020-06-02] MEDS: EZETIMIBE 10 MG TABLET PO SCH (09:29)
[2020-06-02] MEDS: guaiFENesin 600 MG TABCR PO SCH (09:29)
[2020-06-02] MEDS: FAMOTIDINE 20 MG TAB PO SCH (09:29)
[2020-06-02] MEDS: hydrALAZINE HCL 25 MG TAB PO SCH ×3 (09:29→15:05)
[2020-06-02] MEDS: UMECLIDINIUM/VILANTEROL 62.5/25MCG 7 PUFFS/INHALER INH SCH (09:30)
[2020-06-02] MEDS: BUMETANIDE 1 MG TAB PO SCH (09:30)
[2020-06-02] MEDS: ROSUVASTATIN CALCIUM 5 MG TAB PO SCH (09:30)
[2020-06-02] MEDS: CLOPIDOGREL BISULFATE 75 MG TAB PO SCH (09:30)
[2020-06-02] MEDS: FLUTICASONE FUROATE 100MCG 14 PUFFS/INHALER INH SCH (09:31)
[2020-06-02 09:32] LABS: BUN Creatinine Ratio 32.3 (10-20); Calcium 9.4 mg/dl (8.5-10.1); Creatinine Clr Calc Pharmacy 36.5 ml/min; Est GFR (African American) 39.5; Est GFR (Non-African American) 34.1; Potassium 4.1 mmol/L (3.5-5.1)
[2020-06-02] MEDS: INSULIN ASPART 100 UNITS/ML 3 ML PEN SC SCH ×2 (09:34→12:09)
[2020-06-02] MEDS: ALPRAZolam 0.5 MG TABLET PO SCH (09:42)
--- NOTE | 2020-06-02 11:33 | Pharmacy Report ---
Pharmacy Glycemic Short Note 2 - Date of Service June 02, 2020 - Glycemic Short BSG Results (Last 24 hours): OUTPATIENT ANTIDIABETIC REGIMEN: * Lantus 26 units SQ HS * NovoLog 12 units SQ TIDM + SSI * A1c = 10% on 05/30/20 ASSESSMENT: 06/02: * Mr. Lynn received a total of 125 units of insulin yesterday * 75 units basal + 50 units bolus * BSGs were acceptable [phone] mg/dL * Fasting BSG this AM was 161 mg/dL - trending upward * Will increase NPH to 45 units this morning to be given with Prednisone. Today is the last dose of Prednisone for the patient so expect insulin requirements to decrease as steroids wear off. * No adjustment to Lantus scale at this time * Postprandial elevations in BSG was seen yesterday and trended upward throughout the day * Will tighten carb ratio slightly today 06/01: * CY transitioned from insulin infusion to SQ insulin yesterday * BSGs elevated following transition, 233, 260, 324, and 225 mg/dL * Patient received 128 units of SQ insulin in addition to ~48 units of insulin via insulin infusion * Fasting BSG this morning of 128 mg/dL (received 70 units of basal) * Continues on prednisone 40 mg PO daily for 2 more days * Will increase NPH to 40 units with prednisone this morning and tighten breakfast Novolog PLAN FOR INPATIENT GLYCEMIC CONTROL: * Basal insulin - increased NPH * Lantus 25-35 units SQ HS per BSG * 25 units for BSG < 140 mg/dL; 30 units for BSG 140-220 mg/dL; 35 units for BSG > 220 mg/dL * NPH 45 units SQ daily with prednisone - If prednisone is held or discontinued, please call pharmacy and hold NPH dose * Bolus insulin - tighten carb ratio * NovoLog per scale ACHS or Q6hrs while NPO * Goal Range: Low 100 mg/dL - High 140 mg/dL * Correction Factor: 15 mg/dL/unit * Nutritional / Prandial insulin per carb ratio of 1 unit per 4 grams CHO consumed PLAN FOR DISCHARGE: * A1c = 10% on 05/30/20 * Goal A1c is ~ 8.5% based on age/co-morbidities * Recommend titrating Lantus and NovoLog based on outpatient BSGs - may have a better idea of how to do this once inpatient trends are evaluated although the addition of prednisone will complicate this.
--- NOTE | 2020-06-02 12:57 | Discharge Summary ---
Date of Service June 02, 2020 Admission HPI Per Admitting Provider 80yo F w/ hx COPD, CHF, and DM who presents the day after his second Covid-19 vaccination with body aches, shortness of breath, and subjective fevers. The patient reports that a few days prior to getting his vaccination, he had a loss of appetite and just "couldn't eat." He reports some mild, intermittent wheezing as well which he reports his notices more than he does. He reports some mild shortness of breath and non-productive cough as well, though again, he is not clear when this began or if it is worse in the last few days. He received his second vaccination yesterday at 1:45pm, and he reports that by 3 or 4pm, he felt feverish, had body aches, and subjectively was more short of breath than his baseline. Admission Exam Per Admitting Provider Constitutional: WD/WN, vitals as above Eyes: EOM intact bilaterally; no conjunctival abnormality ENMT: external ear and nose normal, oropharynx normal Neck: trachea midline, no thyromegaly normal visual inspection Respiratory: + labored breathing; no respiratory distress and does not use accessory muscles Auscultation: + diminished lung sounds and + abnormal I/E ratio (Extended I/E ratio); no wheezes Cardiovascular: RRR, no murmur, no edema Gastrointestinal (Abdomen): Inspection/Auscultation: abdomen normal to inspection; abdomen not distended Musculoskeletal: no cyanosis or clubbing, extremities motor strength 5/5 Skin: no rashes, warm and dry Neurologic: moves all extremities and awake Psychiatric: Orientation: alert, oriented to person and cooperative Principal Diagnosis acute hypoxic respiratory failure Discharge Exam GENERAL: Pleasant 80 yo male, appears stated age, in no acute distress. Well developed and well nourished. Vital signs reviewed. EYES: EOMI. Anicteric sclerae. HENT: Moist mucous membranes. RESPIRATORY: On 4L NC, O2 saturation 94%. Clear to auscultation bilaterally. No wheezing, rales, or rhonchi. CARDIOVASCULAR: Regular rate and rhythm. No murmurs. ABDOMEN: Soft, non-tender and non-distended. Normal bowel sounds. EXTREMITIES: No edema. Non-tender. SKIN: Warm, dry. No rashes or lesions. NEUROLOGIC: A/O x3. No focal neurological deficits. PSYCHIATRIC: Cooperative. Appropriate mood and affect. Discharge Data Allergies Allergy/AdvReac Type Severity Reaction Status Date / Time No Known Allergies Allergy Verified 05/29/20 19:51 Consultations 05/29/20 18:40 ED Decision to Admit Stat Hospital Course (1) Acute respiratory failure with hypoxemia: Ford Lynn is an 80 yo M with an extensive PMHx including COPD, HFpEF, DM, HTN, hyperlipidemia, CAD, complete heart block s/p pacemaker, hypothyroidism, AAA, and BPH who is admitted on 05/29/20 with acute hypoxemic respiratory failure. Acute Hypoxemic Respiratory Failure - Multifactorial including COPD with emphysema, community acquired pneumonia, diastolic CHF, and questionable pericardial effusion - Increased oxygen requirement compared to home baseline -- required 4-5L O2 NC throughout hospitalization; on day of d/c, patient at 4L for > 12 hours prior to d/c home - Baseline O2 requirement at home = 2-3 L - See below for details Exacerbation of COPD with emphysema - Prednisone 40mg po qAM x4 days; completed on day of discharge - Takes Trelegy at home -- continued Anoro daily during hospitalization - Continue Trelegy upon discharge Community Acquired Pneumonia - Leukocytosis peaked at 23.87 on 05/31 (suspect combination of infection and prednisone use); on day of discharge, WBC = 15.54 - CXR 05/29/20: Cardiomegaly and mild pulmonary vascular congestion. Suspected bilateral pleural effusions left greater than right. Left lower lobe airspace opacities, atelectasis versus pneumonia. - Received total of 5 days of IV Ceftriaxone; received 4 days of IV azithromycin and discharged home with one tablet of Azithromycin 250mg po to complete 5 day course tx for CAP - Continue Mucinex 600mg BID - Encouraged continued use of flutter valve at home Diastolic Congestive Heart Failure - Treated for possible exacerbation of HFpEF secondary to pulmonary edema - BNP = 5549 -- although this is elevated, it is not as high as previous values when patient has been in exacerbations - Continued home Bumex; received 1 additional dose of 0.5mg Bumex on 05/31 - TTE 05/31/20: grade II diastolic dysfunction with mild concentric left ventricular hypertrophy, and moderately dilated IVC. EF was determined to be 55- 60%. Trace pericardial effusion. - Compared to an echocardiogram from 03/2020, the estimated pulmonary pressures are lower, the IVC appears dilated and there is evidence of diastolic dysfunction. - Encouraged patient to continue to monitor fluid intake. Encouraged daily weights. Pericardial Effusion (possible) - ? pericardial effusion noted on chest CT on 05/22/20 - Repeat TTE as noted above; only "trace" pericardial effusion Uncontrolled Type 2 DM - A1c 11.3 on 02/22/20. Repeat A1c 10.0 on 05/30/20 - Blood sugars difficult to control and have gone up to high 400s. Given hx of uncontrolled DM, CKD, and now with steroids for COPD, monitored closely throught the stay and supported by pharmacy with glycemic consult. - Restarted on all home medicines upon discharge home Hyponatremia, resolved - Possibly associated with pulmonary process vs. hypervolemia - Continued home Bumex - Hyponatremia resolved prior to d/c home and was 138 on day of discharge MARJORIE on CKD Stage III - ? Baseline Cr but noted to be ~1.5-1.9 - Cr on day of discharge 1.82 Hypertension, Hyperlipidemia, and CAD - Continue home amlodipine, hydralazine, Bumex, ASA, statin, Plavix, ezetimibe, and metoprolol Hypothyroidism - TSH 1.5; continue home levothyroxine (2) COPD with emphysema: (3) Community acquired pneumonia: (4) Chronic diastolic (congestive) heart failure: (5) Pericardial effusion: (6) Uncontrolled type 2 diabetes mellitus: (7) Hyponatremia: (8) MARJORIE (acute kidney injury): (9) Chronic kidney disease, stage III (moderate): (10) Hypercholesterolemia: (11) Hypertension: (12) CAD, multiple vessel: (13) Hypothyroidism: Total Time Total Time Spent Total Time Spent (In Minutes): See attending attestation Discharge Plan Discharge Items Patient Disposition: Home - Self-Care Reason For Visit: POSSIBLE COPD EXACERBATION VS. COVID VACCINE Discharge Diagnosis: hypoxemic respiratory failure Condition on Discharge: Fair Activity: Per Instructions section Non-emergency contact: Primary Care Provider Call non-emergency contact if: you have any medication questions, your symptoms worsen, your pain is not controlled and you have a fever Follow-up/Referrals: Pietro Calvo MD [Primary Care Provider] - Diet: Carb Consistent or DM2 Addtl Attending Provider Instructions: Mr. Ford Lynn, It was our pleasure to care for you at [facility] from 05/29/20 to 06/02/20. You initially presented to the emergency department with shortness of breath, body aches, and fevers. While admitted, you were diagnosed with pneumonia. You have been treated with IV antibiotics and are being discharged home with one additional dose of antibiotics (Azithromycin 250mg by mouth once). You should continue using the flutter valve (the green breathing device) to help continue to bring up the mucus. You should also use your albuterol inhaler (2 puffs) four times per day until you follow up with your primary care provider early next week. You have done well and are slowly returning back to you baseline home oxygen use. At this time, you should continue 4L supplemental oxygen. If needed during periods of walking, you can increase to 5L oxygen. You should follow up with your primary care physician in 2-3 days. Call you primary care provider with any questions or concerns. Pending Studies at Discharge: No Stand-Alone Forms: My [facility] [employer]), Smoking Cessation Medications and DC Order Prescriptions: New azithromycin 250 mg Tablet 250 mg PO TODAY@2100 1 Days Qty: 1 RF: 0 guaifenesin [Mucinex] 600 mg Tablet Extended Release 12hr 600 mg PO Q12 7 Days Qty: 14 RF: 0 Continued ezetimibe 10 mg tablet 10 mg PO DAILY Qty: 90 RF: 3 metoprolol succinate 25 mg tablet extended release 24 hr 25 mg PO BID Qty: 60 RF: 0 levothyroxine 25 mcg tablet 25 mcg PO DAILY Qty: 90 RF: 3 alprazolam 0.5 mg tablet 0.5 mg PO DAILY Qty: 90 RF: 1 amlodipine 10 mg tablet 10 mg PO HS Qty: 90 RF: 3 clopidogrel 75 mg tablet 75 mg PO DAILY Qty: 90 RF: 3 nitroglycerin [Nitrostat] 0.4 mg tablet, sublingual 0.4 mg Sublingual UD PRN (Reason: chest pain) Qty: 30 RF: 4 albuterol sulfate [Ventolin HFA] 90 mcg/actuation HFA aerosol inhaler 2 puff inhalation QID PRN (Reason: shortness of breath or wheezing) Qty: 54 RF: 3 rosuvastatin 5 mg tablet 5 mg PO Q2D Qty: 90 RF: 3 hydralazine 25 mg tablet 25 mg PO TID 90 Days Qty: 270 RF: 0 insulin glargine 100 unit/mL (3 mL) insulin pen 26 unit subcut HS RF: 0 Novolin R Regular U-100 Insuln 100 unit/mL solution 12 unit subcut TIDM RF: 0 bumetanide 1 mg tablet 0.5 mg PO DAILY Qty: 45 RF: 3 Trelegy Ellipta 200-62.5-25 mcg blister with device 1 inh inhalation DAILY Qty: 28 RF: 2 coenzyme Q10 [Co Q-10] 200 mg Capsule 200 mg PO DAILY RF: 0 aspirin 81 mg tablet,delayed release (DR/EC) 81 mg PO Q OTHER DAY RF: 0 Discharge Orders: Discharge Order (Routine); Ordered 06/02/20 Ordered By: Kari Herrera Admission Data Admit Date/Time: 05/29/20 19:27 Attending Provider: Pietro Dunbar Admit Provider: Td Mckinney Primary Care Provider: Pietro Calvo Other Providers: Td Mckinney Other Interventions: Discharge Summary Assessment (RN) Last Done: 06/02/20 15:08 Supervising Physician Co-Signing Physician Notes Attending attestation Pt seen and examined in concert with Dr. Herrera. In agreement with the documented findings as noted in the resident documentation with any exceptions or additions as noted here. Continued improvement in cough frequency and productivity with adherence to flutter valve and IS. Able to ambulate short distances without worsening of SOB sx. Reports no n/v/d/c, REED, vision changes, CP, n/t/w. On examination, diffuse expiratory wheeze with scattered rhonchi 60 minutes following inh treatment improved from yesterday, S1/S2 nl RRR no MCG. Abd NT/ND BS+ COPD with acute exacerbation atop chronic hypoxic respiratory failure on 2-3L O2 @ home - completed prednisone burst, 1 dose of azithromycin remaining. Contniue with albuterol w/ neb PRN Pneumonia, community acquired - day 4/5 of azithromycin at discharge, to complete course. CKDIII - Cr at baseline DMII, uncontrolled, w/ steroid induced hyperglycemia - glycemic consult in house - tolerating coverage without complaint, return to home dosing following discharge as completed infection tx and steroid course. h/o CAD - continue statin therapy, ezetimibe Else see resident documentation as noted. Total attending time spent with this patients case on day of discharge including counseling and coordination of care elements: 40 minutes. Resident Activity Tracking Resident Involvement: Resident Care Provided Care Provided: Adult [facility]
[2020-06-02] MEDS: cefTRIAXone SODIUM 2,000 MG in DEXTROSE 5% 50 ML IV SCH (13:05)
== END 2020-06-02 16:15 | disposition home or self-care (01) | DRG 190 ==
LOC: ED 15:55 → 2N 15:55 → SUATTDRO 19:27 → OBSVTOIN 19:27 → 2N 21:07

== ENCOUNTER 2021-02-20 08:25 | Inpatient (IN) ==
[2021-02-20] MEDS ORDERED: ALBUT/IPRATROP 3MG/0.5MG NEB 3 ML VIAL INH STA (08:55)
[2021-02-20] MEDS ORDERED: ACETAMINOPHEN 500 MG TAB PO STA (08:55)
[2021-02-20] MEDS ORDERED: CEFEPIME 2,000 MG/20 ML VIAL IV STA (08:55)
--- NOTE | 2021-02-20 09:00 | Emergency Department Note ---
Impression & Plan Hypoxia, CHF (congestive heart failure), SOB (shortness of breath), COVID-19 ED Provider Note NAME: KD AGARWAL AGE: 80 SEX: M : 1940 ARRIVES VIA: Walk-In INFORMANT: [Patient][family] ED PROVIDER(S): [Vince Barreto MD] CHIEF COMPLAINT: Fever HISTORY OF PRESENT ILLNESS: The patient is an 80-year-old male with underlying lung disease. He is vaccinated against COVID-19. The patient states that 2 days ago, he began having chills, a cough, some nausea, some body aches and shortness of breath. He has lost his taste and smell. The patient has not had any sick contacts. There has been no vomiting, no diarrhea, no abdominal or chest pain. He is concerned that he may have COVID-19. He is here with his family. The patient typically wears 2 L of oxygen at home. REVIEW OF SYSTEMS: See HPI for pertinent positives and negatives. A total of ten systems were reviewed and were otherwise negative. PMHx/PSHx: See Below SOCIAL HISTORY: See Below. PHYSICAL EXAM: GENERAL: Patient is in no acute distress. HEENT: No acute trauma, normocephalic atraumatic, mucous membranes moist, no nasal congestion, no scleral icterus. NECK: No stridor, no adenopathy, no meningismus, trachea is midline. LUNGS: Diminished breath sounds bilaterally, no wheezing or rhonchi, no respiratory distress. HEART: Without murmurs gallops or rubs, regular rate and rhythm. ABDOMEN: Soft, nontender, bowel sounds positive, no hernias, no peritonitis. EXTREMITIES: No cyanosis or edema, full range of motion of all the joints without pain or difficulty, no signs for acute trauma. NEUROLOGIC: Oriented x 3, no acute motor or sensory deficits, no focal weakness. SKIN: No rash, no jaundice, no diaphoresis. DIFFERENTIAL DIAGNOSIS: Reactive airway disease, pneumonia, pneumothorax, COVID-19, influenza, COPD, CHF, infection, cardiac ischemia, pulmonary embolism, bronchitis, musculoskeletal, gastrointestinal, as well as other pathologies. EMERGENCY DEPARTMENT COURSE/PROCEDURES: ECG: Indication was shortness of breath. The ECG shows a ventricular pacemaker with a rate of 73. There is no concerning ST elevation, no PVCs. The QTc is 519. Continuous Cardiac Monitoring: An order was placed for continuous cardiac monitoring. The monitor shows a rate of 85 with a ventricular pacemaker. Critical Care Note: I have personally spent 45 minutes of critical care time in the direct management of this patient. This includes bedside care, interpretation of diagnostic studies, and testing, discussion with consultants, patient, and family members, and other required patient management activities. This 45 minutes is in excess of all separately billable procedures. MEDICAL DECISION MAKING: There is no leukocytosis. A mild anemia is noted. There is a normal platelet count. No coagulopathy. Creatinine is elevated at 1.82, this is baseline though for the patient. Lactic acid level is not elevated making severe sepsis less likely. No concerning liver enzyme elevation. BNP is elevated consistent with fluid overload/CHF. ECG shows a ventricular pacemaker, no obvious ischemia. Cardiac enzyme testing x1 is somewhat elevated and higher than his typical subtle elevations. Covid testing returned positive. Influenza testing returned negative. Chest film shows what appears to be some CHF, no focal pneumonia. The patient presents hypoxic and short of breath. He appears to be fluid overloaded, he has COVID-19. These 2 issues have led to his hypoxia and his presentation. The patient was given IV Bumex, 1 mg. He received IV Decadron, a DuoNeb and IV cefepime. He was given oral Tylenol. I do think the patient requires a hospital stay. He is hypoxic. He has underlying lung disease and underlying heart disease. He would do poorly if sent home. I spoke with the patient and case management. The on-call hospitalist was consulted. 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 Peripheral vascular disease Pre-operative exam Proteinuria Pulmonary nodule Steroid-induced hyperglycemia Tobacco use disorder Uncontrolled type 2 diabetes mellitus Surgical History H/O aortic aneurysm repair History of partial colectomy Stented coronary artery Family History Other COPD (chronic obstructive pulmonary disease) Diabetes mellitus type 1 Heart disease Denies family history of Ovarian cancer Prostate cancer Myocardial infarction Breast cancer Colorectal cancer Cancer Social History Smoking Status: Never smoker Tobacco Type: Cigarettes Age Started Using Tobacco: 15; Age Quit Using Tobacco: 70; packs per day: 1; Years Smoked: 10; Second Hand Exposure: No; Hx Alcohol Use: Yes Alcohol Intake Frequency Comment: rarely Hx Substance Use: No Preferred Language: Armenian Communication Ability: Effective Visual Impairment: No Limitations Hearing Ability: Normal Ham Trimmer Required: No Beliefs That Will Affect Care: None marital status: Current Living Situation: Spouse current occupational status: retired current occupation: Retired from career with [employer] Feels Safe at Home: Yes Childhood Exposure to Second-Hand Smoke: Yes caffeine: Yes Dental Care, Regularly: No Physical Activity Frequency: Does not Exercise Seatbelt Use: always Sunscreen Use: No Assistive Devices: Glasses, Nebulizer, Oxygen - Continuous and Walker Allergies Allergies Allergy/AdvReac Type Severity Reaction Status Date / Time No Known Allergies Allergy Verified 01/01/21 09:08 Home Meds Home Medications Medication Instructions Recorded Confirmed aspirin 81 mg tablet,delayed 81 mg PO Q OTHER DAY 05/23/18 02/20/21 release coenzyme Q10 200 mg capsule (Co 200 mg PO DAILY 05/31/19 02/20/21 Q-10) insulin regular human 100 unit/mL 12 unit SUBCUT TIDM ml 02/13/20 02/20/21 injection solution (Novolin R Regular U-100 Insulin) hydralazine 50 mg tablet 50 mg PO TID 02/20/21 02/20/21 Previous Rx's Medication Instructions Recorded amlodipine 10 mg tablet 10 mg PO HS #90 tab 02/03/20 nitroglycerin 0.4 mg sublingual 0.4 mg SUBLINGUAL UD PRN #30 tabs 03/28/20 tablet (Nitrostat) rosuvastatin 5 mg tablet 5 mg PO Q2D #90 tab 04/05/20 bumetanide 1 mg tablet 0.5 mg PO DAILY #45 tab 05/23/20 flash glucose sensor (FreeStyle #1 ea 06/18/20 Maritza 14 Day Sensor) ezetimibe 10 mg tablet 10 mg PO DAILY #90 tab 07/12/20 levothyroxine 25 mcg tablet 25 mcg PO DAILY #90 tab 10/02/20 Portable Oxygen #1 ea 11/12/20 albuterol sulfate 90 mcg/actuation 2 puff INHALATION QID PRN #54 g 11/12/20 aerosol inhaler (Ventolin HFA) fluticasone fur. 200 mcg-umeclid 1 inh INHALATION DAILY #60 ea 11/12/20 62.5 mcg-vilant 25 mcg inhalat.powder (Trelegy Ellipta) insulin glargine 100 unit/mL (3 26 unit SUBCUT HS #15 ml 11/16/20 mL) subcutaneous pen metoprolol succinate 25 mg 25 mg PO BID #180 tab 12/11/20 tablet,extended release 24 hr alprazolam 0.5 mg tablet 0.5 mg PO DAILY #90 tab 01/23/21 clopidogrel 75 mg tablet 75 mg PO DAILY #90 tab 01/23/21 pen needle, diabetic 32 gauge x #360 ea 02/05/2108/19" (Comfort EZ [place]) Results & Data (ED) Vital Signs Vital Signs - 24 hr 02/20/21 08:30 02/20/21 09:40 02/20/21 09:54 Temperature 36.4 C L Temperature Source Skin Pulse Rate 85 Pulse Rate [Right Finger] 78 Pulse Rate from SpO2 Sensor Respiratory Rate 18 14 Respiratory Effort / Characteristics Non-Labored Spontaneous Blood Pressure 139/66 Blood Pressure Mean 90 Pulse Oximetry 85 L 85 L 93 Oxygen Delivery Method Nasal Cannula Nasal Cannula Nasal Cannula Oxygen Flow Rate 2 2 4 Sepsis Recent Fever Within 48 Hours Yes Sepsis New/Unexplained Change in Mental Status No Sepsis Action Taken by Nursing No Action Required Oxygen Flow Rate - Titration Pulse Oximetry Post Tiitration 02/20/21 09:55 02/20/21 09:59 02/20/21 10:00 Temperature Temperature Source Pulse Rate 76 67 Pulse Rate [Right Finger] Pulse Rate from SpO2 Sensor 77 67 Respiratory Rate 14 19 Respiratory Effort / Characteristics Blood Pressure Blood Pressure Mean Pulse Oximetry 93 85 L 93 Oxygen Delivery Method Nasal Cannula Oxygen Flow Rate 4 2 Sepsis Recent Fever Within 48 Hours Sepsis New/Unexplained Change in Mental Status Sepsis Action Taken by Nursing Oxygen Flow Rate - Titration 4 Pulse Oximetry Post Tiitration 94 02/20/21 10:30 02/20/21 11:00 02/20/21 11:30 Temperature Temperature Source Pulse Rate 67 68 73 Pulse Rate [Right Finger] Pulse Rate from SpO2 Sensor 65 67 73 Respiratory Rate 25 H 30 H 23 Respiratory Effort / Characteristics Blood Pressure 105/66 133/97 Blood Pressure Mean 79 109 Pulse Oximetry 92 90 92 Oxygen Delivery Method Oxygen Flow Rate Sepsis Recent Fever Within 48 Hours Sepsis New/Unexplained Change in Mental Status Sepsis Action Taken by Nursing Oxygen Flow Rate - Titration Pulse Oximetry Post Tiitration 02/20/21 12:00 02/20/21 12:30 02/20/21 13:00 Temperature Temperature Source Pulse Rate 62 66 62 Pulse Rate [Right Finger] Pulse Rate from SpO2 Sensor 60 65 53 L Respiratory Rate 16 23 22 Respiratory Effort / Characteristics Blood Pressure Blood Pressure Mean Pulse Oximetry 94 94 92 Oxygen Delivery Method Oxygen Flow Rate 4 Sepsis Recent Fever Within 48 Hours Sepsis New/Unexplained Change in Mental Status Sepsis Action Taken by Nursing Oxygen Flow Rate - Titration Pulse Oximetry Post Tiitration 02/20/21 13:30 02/20/21 14:00 02/20/21 14:30 Temperature Temperature Source Pulse Rate 66 62 Pulse Rate [Right Finger] Pulse Rate from SpO2 Sensor 60 66 61 Respiratory Rate 19 28 H 22 Respiratory Effort / Characteristics Blood Pressure 120/69 113/68 130/65 Blood Pressure Mean 86 83 86 Pulse Oximetry 91 89 L 93 Oxygen Delivery Method Oxygen Flow Rate 4 4 Sepsis Recent Fever Within 48 Hours Sepsis New/Unexplained Change in Mental Status Sepsis Action Taken by Nursing Oxygen Flow Rate - Titration Pulse Oximetry Post Tiitration 02/20/21 15:00 02/20/21 15:30 02/20/21 16:00 Temperature Temperature Source Pulse Rate 60 60 60 Pulse Rate [Right Finger] Pulse Rate from SpO2 Sensor 60 61 60 Respiratory Rate 23 14 22 Respiratory Effort / Characteristics Blood Pressure 136/77 146/83 H 139/83 Blood Pressure Mean 96 104 101 Pulse Oximetry 94 94 93 Oxygen Delivery Method Oxygen Flow Rate Sepsis Recent Fever Within 48 Hours Sepsis New/Unexplained Change in Mental Status Sepsis Action Taken by Nursing Oxygen Flow Rate - Titration Pulse Oximetry Post Tiitration Home Medications Current Medication List: was personally reviewed by me Laboratory Data Attestation: I reviewed the patient's lab results. Result diagrams: 02/20/21 09:30 02/20/21 09:30 Lab Results 02/20/21 02/20/21 02/20/21 Range/Units 09:30 09:30 09:30 WBC 7.20 (4.8-10.8) K/uL RBC 4.27 L (4.7-6.1) M/uL Hgb 13.5 L (14.0-18.0) g/dL Hct 39.5 L (42-52) % MCV 92.5 (80-100) fL MCH 31.6 (25-34) pg MCHC 34.2 (32-36) g/dL RDW Std Deviation 49.9 H (36.4-46.3) fL RDW Coeff of Pj 14.6 H (11.5-14.5) % Plt Count 205 (130-400) K/uL MPV 10.0 (7.4-10.4) fL Immature Gran % (Auto) 0.6 % Neut % (Auto) 66.9 % Lymph % (Auto) 14.6 % C[place] % (Auto) 17.1 % Eos % (Auto) 0.1 % Baso % (Auto) 0.7 % Neut # (Auto) 4.82 (1.4-6.5) K/uL Lymph # (Auto) 1.05 L (1.2-3.4) K/uL [place] # (Auto) 1.23 H (0.11-0.59) K/uL Eos # (Auto) 0.01 (0-0.5) K/uL Baso # (Auto) 0.05 (0-0.2) K/uL Immature Gran # (Auto) 0.04 H (0.00-0.02) K/uL PT 10.6 (9.0-12.0) Seconds INR 1.0 (0.9-1.1) APTT 30.2 (21.0-31.0) Seconds PTT Ratio 1.1 Sodium (136-145) mmol/L Potassium (3.5-5.1) mmol/L Chloride (98-107) mmol/L Carbon Dioxide (21-32) mmol/L Anion Gap (3-11) BUN (7-18) mg/dl Creatinine (0.6-1.4) mg/dl Est Cr Clr Drug Dosing Est GFR ( Amer) ml/min Est GFR (Non-Af Amer) ml/min BUN/Creatinine Ratio (10-20) Glucose (70-99) mg/dl Lactate 1.5 (0.4-2.0) mmol/L Calcium (8.5-10.1) mg/dl Magnesium (1.8-2.4) mg/dl Total Bilirubin (0.2-1) mg/dl AST (15-37) U/L ALT (12-78) U/L Alkaline Phosphatase (45-117) U/L Troponin I (0-0.045) ng/ml NT-Pro-B Natriuret Pep (0-1800) pg/ml Total Protein (6.4-8.2) gm/dl Albumin (3.4-5.0) gm/dl Globulin (2.5-4.0) gm/dl Albumin/Globulin Ratio (0.9-2) COVID-19 Eval Order SARS-CoV-2 (PCR) (Negative) Influ A Molecular Assay (Negative) Influ B Molecular Assay (Negative) 02/20/21 02/20/21 02/20/21 Range/Units 09:30 09:30 09:40 WBC (4.8-10.8) K/uL RBC (4.7-6.1) M/uL Hgb (14.0-18.0) g/dL Hct (42-52) % MCV (80-100) fL MCH (25-34) pg MCHC (32-36) g/dL RDW Std Deviation (36.4-46.3) fL RDW Coeff of Pj (11.5-14.5) % Plt Count (130-400) K/uL MPV (7.4-10.4) fL Immature Gran % (Auto) % Neut % (Auto) % Lymph % (Auto) % [place] % (Auto) % Eos % (Auto) % Baso % (Auto) % Neut # (Auto) (1.4-6.5) K/uL Lymph # (Auto) (1.2-3.4) K/uL [place] # (Auto) (0.11-0.59) K/uL Eos # (Auto) (0-0.5) K/uL Baso # (Auto) (0-0.2) K/uL Immature Gran # (Auto) (0.00-0.02) K/uL PT (9.0-12.0) Seconds INR (0.9-1.1) APTT (21.0-31.0) Seconds PTT Ratio Sodium 136 (136-145) mmol/L Potassium 4.1 (3.5-5.1) mmol/L Chloride 103 (98-107) mmol/L Carbon Dioxide 26 (21-32) mmol/L Anion Gap 7.0 (3-11) BUN 37 H (7-18) mg/dl Creatinine 1.82 H (0.6-1.4) mg/dl Est Cr Clr Drug Dosing Not Reportable Est GFR ( Amer) 39.5 ml/min Est GFR (Non-Af Amer) 34.1 ml/min BUN/Creatinine Ratio 20.1 H (10-20) Glucose 213 H (70-99) mg/dl Lactate (0.4-2.0) mmol/L Calcium 8.6 (8.5-10.1) mg/dl Magnesium 1.9 (1.8-2.4) mg/dl Total Bilirubin 0.6 (0.2-1) mg/dl AST 30 (15-37) U/L ALT 24 (12-78) U/L Alkaline Phosphatase 85 (45-117) U/L Troponin I 0.152 H* (0-0.045) ng/ml NT-Pro-B Natriuret Pep 8989 H (0-1800) pg/ml Total Protein 6.9 (6.4-8.2) gm/dl Albumin 3.1 L (3.4-5.0) gm/dl Globulin 3.8 (2.5-4.0) gm/dl Albumin/Globulin Ratio 0.8 L (0.9-2) COVID-19 Eval Order SARS-CoV-2 (PCR) (Negative) Influ A Molecular Assay Negative (Negative) Influ B Molecular Assay Negative (Negative) 02/20/21 02/20/21 Range/Units 09:40 09:40 WBC (4.8-10.8) K/uL RBC (4.7-6.1) M/uL Hgb (14.0-18.0) g/dL Hct (42-52) % MCV (80-100) fL MCH (25-34) pg MCHC (32-36) g/dL RDW Std Deviation (36.4-46.3) fL RDW Coeff of Pj (11.5-14.5) % Plt Count (130-400) K/uL MPV (7.4-10.4) fL Immature Gran % (Auto) % Neut % (Auto) % Lymph % (Auto) % [place] % (Auto) % Eos % (Auto) % Baso % (Auto) % Neut # (Auto) (1.4-6.5) K/uL Lymph # (Auto) (1.2-3.4) K/uL [place] # (Auto) (0.11-0.59) K/uL Eos # (Auto) (0-0.5) K/uL Baso # (Auto) (0-0.2) K/uL Immature Gran # (Auto) (0.00-0.02) K/uL PT (9.0-12.0) Seconds INR (0.9-1.1) APTT (21.0-31.0) Seconds PTT Ratio Sodium (136-145) mmol/L Potassium (3.5-5.1) mmol/L Chloride (98-107) mmol/L Carbon Dioxide (21-32) mmol/L Anion Gap (3-11) BUN (7-18) mg/dl Creatinine (0.6-1.4) mg/dl Est Cr Clr Drug Dosing Est GFR ( Amer) ml/min Est GFR (Non-Af Amer) ml/min BUN/Creatinine Ratio (10-20) Glucose (70-99) mg/dl Lactate (0.4-2.0) mmol/L Calcium (8.5-10.1) mg/dl Magnesium (1.8-2.4) mg/dl Total Bilirubin (0.2-1) mg/dl AST (15-37) U/L ALT (12-78) U/L Alkaline Phosphatase (45-117) U/L Troponin I (0-0.045) ng/ml NT-Pro-B Natriuret Pep (0-1800) pg/ml Total Protein (6.4-8.2) gm/dl Albumin (3.4-5.0) gm/dl Globulin (2.5-4.0) gm/dl Albumin/Globulin Ratio (0.9-2) COVID-19 Eval Order Covid19 at [facility] SARS-CoV-2 (PCR) POSITIVE A* (Negative) Influ A Molecular Assay (Negative) Influ B Molecular Assay (Negative) Administered Medications Insulin Human NPH (Insulin Human Nph) 30 units SC DAILY ERICKA Stop: 03/22/21 11:44 Last Admin: 02/20/21 16:37 Dose: 30 units Documented by: [id number] Cosigned by: [id number] Discontinued Medications Acetaminophen (Acetaminophen 500 Mg Tab) 1,000 mg PO NOW STA Stop: 02/20/21 08:56 Last Admin: 02/20/21 09:53 Dose: 1,000 mg Documented by: [id number] Albuterol (Albut/Ipratrop 3mg/0.5mg Neb 3 Ml Vial) 3 ml INH NOW STA Stop: 02/20/21 08:56 Last Admin: 02/20/21 09:52 Dose: 3 ml Documented by: [id number] Dexamethasone Sodium Phosphate (DexamethasonePf 10 Mg/Ml Vial) 6 mg IV NOW ONE Stop: 02/20/21 11:10 Last Admin: 02/20/21 11:29 Dose: 6 mg Documented by: [id number] Cefepime HCl (Maxipime) 2,000 mg in 20 mls @ 5 mls/min IV NOW STA; Protocol Stop: 02/20/21 08:58 Last Admin: 02/20/21 09:53 Dose: 5 mls/min Documented by: [id number] Bumetanide 1 mg/ Syringe 4 mls @ 4 mls/min IV NOW STA Stop: 02/20/21 10:43 Last Admin: 02/20/21 11:28 Dose: 4 mls/min Documented by: [id number] Remdesivir 200 mg/ Sodium (Chloride) 250 mls @ 125 mls/hr IV ONE STA; Protocol Stop: 02/20/21 13:42 Last Infusion: 02/20/21 14:55 Dose: 0 mls/hr Documented by: [id number] Admin: 02/20/21 12:55 Dose: 125 mls/hr Documented by: [id number] Imaging Data Radiologist's Impression: Chest X-Ray 02/20/21 08:55 XR chest 1V portable HISTORY: Shortness of breath. COMPARISON: Chest 05/29/2020. FINDINGS: No pneumothorax. There are small bilateral pleural effusions. The hear t remains mildly enlarged. There is a left-sided dual-chamber pacemaker. Mild diffuse interstitial thickening with prominence of the perihilar vessels suggestive of mild interstitial pulmonary edema. This has progressed in the interval. No new focal lung consolidations to suggest pneumonia. IMPRESSION: Interval progression of the mild interstitial pulmonary edema and small bilateral pleural effusions. ACT 112: Negative or not required by law. Electronically signed by: Shar Vega M.D. 02/20/2021 9:22 AM Discharge Plan Visit Data Chief Complaint: Fever Stated Complaint: FEVER/COUGH/ACHE ALL OVER ED Provider: Vince Barreto Discharge Problem: Hypoxia, CHF (congestive heart failure), SOB (shortness of breath), COVID-19 Patient Disposition: Admitted As Inpatient Condition: Fair Forms Stand Alone Forms: [facility] GLOG Prescriptions Prescriptions: No Action amlodipine 10 mg tablet 10 mg PO HS Qty: 90 RF: 3 nitroglycerin [Nitrostat] 0.4 mg tablet, sublingual 0.4 mg Sublingual UD PRN (Reason: chest pain) Qty: 30 RF: 4 rosuvastatin 5 mg tablet 5 mg PO Q2D Qty: 90 RF: 3 ezetimibe 10 mg tablet 10 mg PO DAILY Qty: 90 RF: 3 levothyroxine 25 mcg tablet 25 mcg PO DAILY Qty: 90 RF: 3 insulin glargine 100 unit/mL (3 mL) insulin pen 26 unit subcut HS Qty: 15 RF: 3 metoprolol succinate 25 mg tablet extended release 24 hr 25 mg PO BID Qty: 180 RF: 3 alprazolam 0.5 mg tablet 0.5 mg PO DAILY Qty: 90 RF: 1 clopidogrel 75 mg tablet 75 mg PO DAILY Qty: 90 RF: 3 (DME) Comfort EZ [place] 32 gauge x 5/16" needle See Rx Instructions .Route Qty: 360 RF: 3 Novolin R Regular U-100 Insuln 100 unit/mL solution 12 unit subcut TIDM RF: 0 bumetanide 1 mg tablet 0.5 mg PO DAILY Qty: 45 RF: 3 albuterol sulfate [Ventolin HFA] 90 mcg/actuation HFA aerosol inhaler 2 puff inhalation QID PRN (Reason: shortness of breath or wheezing) Qty: 54 RF: 3 Trelegy Ellipta 200-62.5-25 mcg blister with device 1 inh inhalation DAILY Qty: 60 RF: 5 (DME) Portable Oxygen Misc See Rx Instructions .MEDSUPPLY Qty: 1 RF: 0 (DME) FreeStyle Maritza 14 Day Sensor Kit See Rx Instructions .ROUTE .MEDSUPPLY Qty: 1 RF: 0 coenzyme Q10 [Co Q-10] 200 mg Capsule 200 mg PO DAILY RF: 0 aspirin 81 mg tablet,delayed release (DR/EC) 81 mg PO Q OTHER DAY RF: 0 hydralazine 50 mg tablet 50 mg PO TID RF: 0 Referrals Referrals: Gene Calvo MD [Primary Care Provider] -
--- NOTE | 2021-02-20 09:23 | XRay Report ---
XR chest 1V portable HISTORY: Shortness of breath. COMPARISON: Chest 05/29/2020. FINDINGS: No pneumothorax. There are small bilateral pleural effusions. The heart remains mildly enla rged. There is a left-sided dual-chamber pacemaker. Mild diffuse interstitial thickening with promine nce of the perihilar vessels suggestive of mild interstitial pulmonary edema. This has progressed in the interval. No new focal lung consolidations to suggest pneumonia. IMPRESSION: Interval progression of the mild interstitial pulmonary edema and small bilateral pleural effusions. ACT 112: Negative or not required by law. Electronically signed by: Shar Vega M.D. 02/20/2021 9:22 AM
[2021-02-20 10:00] LABS: Basophils # (auto) 0.05 K/uL (0-0.2); Basophils % (auto) 0.7 %; Eosinophils # (auto) 0.01 K/uL (0-0.5); Eosinophils % (auto) 0.1 %; Hematocrit (blood only) 39.5 % (42-52); Hemoglobin 13.5 g/dL (14.0-18.0); Immature Granulocytes # (auto) 0.04 K/uL (0.00-0.02); Immature Granulocytes % (auto) 0.6 %; Lymphocytes # (auto) 1.05 K/uL (1.2-3.4); Lymphocytes % (auto) 14.6 %; Mean Corpuscular Hemoglobin 31.6 pg (25-34); Mean Corpuscular Hgb Conc 34.2 g/dL (32-36); Mean Corpuscular Volume 92.5 fL (80-100); Monocytes # (auto) 1.23 K/uL (0.11-0.59); Monocytes % (auto) 17.1 %; Neutrophils # (auto) 4.82 K/uL (1.4-6.5); Neutrophils % (auto) 66.9 %; Platelet Count 205 K/uL (130-400); RDW Coefficient of Variation 14.6 % (11.5-14.5); RDW Standard Deviation 49.9 fL (36.4-46.3); Red Blood Count 4.27 M/uL (4.7-6.1)
[2021-02-20 10:10] LABS: Partial Thromboplastin Ratio 1.1; Partial Thromboplastin Time 30.2 Seconds (21.0-31.0); Prothrombin Time 10.6 Seconds (9.0-12.0)
[2021-02-20 10:36] LABS: Influenza A virus by PCR Negative (Negative); Influenza B virus by PCR Negative (Negative)
[2021-02-20 10:39] LABS: Alanine Aminotransferase 24 U/L (12-78); Albumin Level 3.1 gm/dl (3.4-5.0); Aspartate Aminotransferase 30 U/L (15-37); BUN Creatinine Ratio 20.1 (10-20); Blood Urea Nitrogen 37 mg/dl (7-18); Calcium 8.6 mg/dl (8.5-10.1); Carbon Dioxide 26 mmol/L (21-32); Chloride 103 mmol/L (98-107); Est GFR (African American) 39.5 ml/min; Est GFR (Non-African American) 34.1 ml/min; Glucose 213 mg/dl (70-99); Magnesium 1.9 mg/dl (1.8-2.4); Potassium 4.1 mmol/L (3.5-5.1); Sodium 136 mmol/L (136-145)
[2021-02-20] MEDS ORDERED: BUMETANIDE 1 MG in SYRINGE 0 ML IV STA (10:42)
[2021-02-20 10:48] LABS: Albumin Globulin Ratio 0.8 (0.9-2); Alkaline Phosphatase 85 U/L (45-117); Bilirubin,Total 0.6 mg/dl (0.2-1); Globulin 3.8 gm/dl (2.5-4.0); Total Protein 6.9 gm/dl (6.4-8.2); Troponin I 0.152 ng/ml (0-0.045)
[2021-02-20] MEDS ORDERED: dexAMETHasone**PF** 10 MG/ML VIAL IV ONE (11:09)
[2021-02-20] MEDS ORDERED: REMDESIVIR 200 MG in SODIUM CHLORIDE 0.9% 210 ML IV STA (11:43)
--- NOTE | 2021-02-20 11:58 | History & Physical Report ---
Date of Service February 20, 2021 Assessment & Plan (1) Pneumonia due to COVID-19 virus: Plan: Patient presents with acute respiratory failure hypoxia secondary to COVID-19 viral pneumonia. Escalating oxygen requirements will be placed on high flow nasal cannula and adjusted as needed. Patient was given extra dose of diuretic in the emergency department and dexamethasone he will be continued on dexamethasone and he does qualify for remdesivir as his GFR is still greater than 30 and he is within the early time window for remdesivir treatment. We will check a CRP in the morning and follow his oxygen needs to determine if he would qualify for any additional Covid treatment (2) Chronic respiratory failure with hypoxia: Plan: Patient typically sees Dr. Glass, typically maintained for his mixed restrictive obstructive lung disease with albuterol plus Trelegy Ellipta and was referred to pulmonary rehab at his last appointment. Last FEV1 was 68% 2.18 L FEV1 FVC ratio 67% DLCO significantly reduced to 27%. Patient be maintained on his inhalers and is given steroids for his Covid pneumonia which could also up in the inflammatory response from his underlying lung disease the primary livery car driver of his acute respiratory failure hypoxia seems to be Covid pneumonia (3) Diabetes: Plan: Patient typically has insulin requiring diabetes he will be given NPH insulin daily to cover his dexamethasone effect on his glucose control maintaining his basal bolus insulin A1c is pending for the morning (4) Elevated troponin: Plan: Patient has elevated troponin without acute current of injury seen on his EKG he was markedly hypoxic this is likely demand ischemia or type II IN we will check another troponin in the morning of 02/21 will be maintained on aspirin and his beta-percy at this time plus continuing his statin for secondary disease prevention (5) Chronic diastolic (congestive) heart failure: Plan: Patient has a history of diastolic heart failure it appears to be with slight worsening on chest x-ray although could be Covid changes patient was given additional dose of diuretic in the ER will continue on his normal diuretic dose (6) ELIOT (acute kidney injury): Plan: Patient is acute kidney injury on chronic kidney disease. He was given diuretics due to his pulmonary status will follow his renal function and involve nephrology if need be especially with his history of renal artery stenosis status post stenting (7) Hypertension: Plan: Patient has a history of renal artery stenting bilaterally by Dr. Pugh in 2020 with abdominal aortic aneurysm repair, remains on his diuretic, Bumex, continues on metoprolol succinate 25 twice daily plus hydralazine 3 times daily. Amlodipine 10 at bedtime is held due to his blood pressure being slightly soft here in the ER (8) Obesity (BMI 30.0-34.9): Plan: His morbid obesity places secondary risk for his Covid morbidity (9) DVT prophylaxis: Plan: Lovenox to be ordered with regard to Covid dosing History of Present Illness Primary Care Provider: Gene Calvo MD 80-year-old male with underlying lung disease. He is vaccinated against COVID- 19 with pizer. The patient states that 2 days prior to admission he began having chills, a cough, some nausea, some body aches and shortness of breath. He has lost his taste and smell. The patient has not had any sick contacts. There has been no vomiting, no diarrhea, no abdominal or chest pain. He is concerned that he may have COVID-19. He is here with his family.He has chronic respiratory failure with hypoxia and typically wears 2 L of oxygen at home, however was 85% saturation on presentation, he has excalated oxygen needs and also eliot plus elevated troponin on presentation without ECG acute changes, he is paced. Allergies Allergy/AdvReac Type Severity Reaction Status Date / Time No Known Allergies Allergy Verified 01/01/21 09:08 Home Medications Medication Instructions Recorded Confirmed Type aspirin 81 mg tablet,delayed 81 mg PO Q OTHER DAY 05/23/18 02/20/21 History release coenzyme Q10 200 mg capsule (Co 200 mg PO DAILY 05/31/19 02/20/21 History Q-10) amlodipine 10 mg tablet 10 mg PO HS #90 tab 02/03/20 02/20/21 Rx insulin regular human 100 unit/mL 12 unit SUBCUT TIDM ml 02/13/20 02/20/21 History injection solution (Novolin R Regular U-100 Insulin) nitroglycerin 0.4 mg sublingual 0.4 mg SUBLINGUAL UD PRN #30 tabs 03/28/20 02/20/21 Rx tablet (Nitrostat) rosuvastatin 5 mg tablet 5 mg PO Q2D #90 tab 04/05/20 02/20/21 Rx bumetanide 1 mg tablet 0.5 mg PO DAILY #45 tab 05/23/20 02/20/21 Rx flash glucose sensor (FreeStyle #1 ea 06/18/20 01/01/21 Rx Maritza 14 Day Sensor) ezetimibe 10 mg tablet 10 mg PO DAILY #90 tab 07/12/20 02/20/21 Rx levothyroxine 25 mcg tablet 25 mcg PO DAILY #90 tab 10/02/20 02/20/21 Rx Portable Oxygen #1 ea 11/12/20 01/01/21 Rx albuterol sulfate 90 mcg/actuation 2 puff INHALATION QID PRN #54 g 11/12/20 02/20/21 Rx aerosol inhaler (Ventolin HFA) fluticasone fur. 200 mcg-umeclid 1 inh INHALATION DAILY #60 ea 11/12/20 02/20/21 Rx 62.5 mcg-vilant 25 mcg inhalat.powder (Trelegy Ellipta) insulin glargine 100 unit/mL (3 26 unit SUBCUT HS #15 ml 11/16/20 02/20/21 Rx mL) subcutaneous pen metoprolol succinate 25 mg 25 mg PO BID #180 tab 12/11/20 02/20/21 Rx tablet,extended release 24 hr alprazolam 0.5 mg tablet 0.5 mg PO DAILY #90 tab 01/23/21 02/20/21 Rx clopidogrel 75 mg tablet 75 mg PO DAILY #90 tab 01/23/21 02/20/21 Rx pen needle, diabetic 32 gauge x #360 ea 02/05/21 Rx 5/16" (Comfort EZ Pen [place]) hydralazine 50 mg tablet 50 mg PO TID 02/20/21 02/20/21 History 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 Peripheral vascular disease Pre-operative exam Proteinuria Pulmonary nodule Steroid-induced hyperglycemia Tobacco use disorder Uncontrolled type 2 diabetes mellitus Surgical History H/O aortic aneurysm repair History of partial colectomy Stented coronary artery Family History Other COPD (chronic obstructive pulmonary disease) Diabetes mellitus type 1 Heart disease Denies family history of Ovarian cancer Prostate cancer Myocardial infarction Breast cancer Colorectal cancer Cancer Social History Smoking Status: Never smoker Tobacco Type: Cigarettes Age Started Using Tobacco: 15; Age Quit Using Tobacco: 70; packs per day: 1; Years Smoked: 10; Second Hand Exposure: No; Hx Alcohol Use: Yes Alcohol Intake Frequency Comment: rarely Hx Substance Use: No Preferred Language: [place] Islander Communication Ability: Effective Visual Impairment: No Limitations Hearing Ability: Normal Licensed Mortgage Loan Officer Required: No Beliefs That Will Affect Care: None marital status: Current Living Situation: Spouse current occupational status: retired current occupation: Retired from career with [employer] Feels Safe at Home: Yes Childhood Exposure to Second-Hand Smoke: Yes caffeine: Yes Dental Care, Regularly: No Physical Activity Frequency: Does not Exercise Seatbelt Use: always Sunscreen Use: No Assistive Devices: Glasses, Nebulizer, Oxygen - Continuous and Walker Review of Systems Review of Systems: Moderate respiratory distress and fatigue no headache, no visual changes no speech or swallowing issues no chest pain, pressure or palpitations Increased shortness of breath over his baseline nonproductive cough but wheezes no abdominal pain, nausea or vomiting, diarrhea or constipation no dysuria, hematuria or frequency no focal joint pain or swelling no back pain, CVA tenderness or radicular pain no bruising, bleeding or rashes no focal signs of weakness or numbness or altered sensation no complaints of anxiety or depression.. Physical Exam Physical Exam: The patient appeared well nourished and normally developed. Vital signs as documented. Head exam is normocephalic atraumatic Neck is without JVD, thyromegaly, or carotid bruits. Lungs are diminished throughout occasional crackles which clear with deep inspiration no wheezes Cardiac exam, Rhythm is regular.. No murmurs, rubs or gallops. Abdominal exam reveals normal bowel sounds, soft non tender, no masses Extremities are nonedematous and both pedal pulses are present Neurologic exam is alert and oriented, no focal loss of strength or sensation Skin is without bruises or rashes Psychologically is without concerns for anxiety or depression Results & Data Results & Data ([facility]) Vital Signs (Past 12 Hours) Vital Signs Temp Pulse Pulse Resp BP Pulse Ox 02/20/21 09:59 85 L 02/20/21 09:55 76 14 93 02/20/21 09:54 78 14 93 02/20/21 09:40 85 L 02/20/21 08:30 97.5 F L 85 18 139/66 85 L Diagnostic Findings cxr 02/20/21. Interval progression of the mild interstitial pulmonary edema and small bilateral pleural effusions. ECG Additional Comments: Paced rhythm no acute changes Code Status & VTE Plan VTE Prophylaxis Plan VTE Prophylaxis will be ordered: Yes PG Care Time/CCT Total # of Minutes Spent Total Time Spent with Patient: Total time spent is greater than 50% in coordination of care (as documented) at patient's floor/unit and/or counseling patient: Coding Level of Care Code 62829 Initial Inpt Care Lvl 3 Diagnoses Chronic respiratory failure with hypoxia J96.11 Obesity (BMI 30.0-34.9) E66.9 Elevated troponin R77.8 DVT prophylaxis Z29.9 Chronic diastolic (congestive) heart failure I50.32 ELIOT (acute kidney injury) N17.9 Hypertension I10 Diabetes E11.22; N18.3; Z79.4 Chronic kidney disease stage: stage 3 (moderate) Diabetes mellitus complication detail: with chronic kidney disease Diabetes mellitus complication status: with kidney complications Diabetes mellitus fdc insulin use: with watermelon harvesting supervisor use Diabetes mellitus type: type 2 Pneumonia due to COVID-19 virus U07.1; J12.82 (1) Diabetes Chronic kidney disease stage: stage 3 (moderate) Diabetes mellitus compli cation detail: with chronic kidney disease Diabetes mellitus complication status: with kidney complications Diabetes mellitus watermelon harvesting supervisor insulin use: with watermelon harvesting supervisor use Diabetes mellitus type: type 2 Qualified Code(s): E11.22 - Type 2 diabetes mellitus with diabetic chronic kidney disease; N18.3 - Chronic kidney disease, stage 3 (moderate); 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
[2021-02-20] MEDS ORDERED: INSULIN ASPART 100 UNITS/ML 3 ML PEN SC SCH (16:30)
[2021-02-20] MEDS ORDERED: INSULIN ASPART PER UNIT SC SCH (16:30)
[2021-02-20] MEDS: INSULIN HUMAN NPH SC SCH (16:37)
[2021-02-20] MEDS ORDERED: ALBUTEROL HFA 8 GM INHALER INH PRN (23:12)
[2021-02-20] MEDS ORDERED: GLUCAGON FOR INJ 1 MG VIAL SQ PRN (23:12)
[2021-02-20] MEDS ORDERED: DEXTROSE 50% 50 ML SYRINGE IV PRN (23:12)
[2021-02-20] MEDS ORDERED: GLUCOSE 10 TABS/TUBE PO PRN (23:12)
[2021-02-20] MEDS ORDERED: ACETAMINOPHEN 325 MG TAB PO PRN (23:12)
[2021-02-20] MEDS ORDERED: NITROGLYCERIN SL 0.4 MG/TAB TAB SL PRN (23:12)
[2021-02-20] MEDS ORDERED: ALUMINUM/MAGNESIUM SUSP 30 ML UDC PO PRN (23:12)
[2021-02-20] MEDS ORDERED: GLUCOSE 40% GEL 15 GM TUBE PO PRN (23:12)
[2021-02-20] MEDS ORDERED: CARBOHYDRATES FOR HYPOGLYCEMIA PO PRN (23:12)
[2021-02-20] MEDS ORDERED: ONDANSETRON INJ 2 MG/ML 2 ML VIAL IV PRN (23:12)
[2021-02-21 00:20] LABS: C Reactive Protein 0.91 mg/dl (0-0.29)
[2021-02-21] MEDS: INSULIN ASPART 100 UNITS/ML VIAL SC SCH ×5 (00:24→20:35)
[2021-02-21] MEDS: INSULIN GLARGINE SOLOSTAR 100 UNITS/ML 3 ML PEN SQ SCH ×2 (00:24→20:35)
[2021-02-21] MEDS: ENOXAPARIN INJ 40 MG/0.4 ML SYR SQ SCH ×2 (00:30→08:59)
[2021-02-21] MEDS: METOPROLOL SUCC 25MG EXT REL TAB PO SCH ×3 (00:31→20:34)
[2021-02-21] MEDS: hydrALAZINE TAB 50 MG TAB PO SCH ×4 (00:32→20:34)
[2021-02-21] MEDS: LEVOTHYROXINE SODIUM 25 MCG TABLET PO SCH (05:47)
[2021-02-21 08:10] LABS: C Reactive Protein 1.3 mg/dl (0-0.29); Troponin I 0.177 ng/ml (0-0.045)
[2021-02-21] MEDS: BUMETANIDE 1 MG TAB PO SCH (08:57)
[2021-02-21] MEDS: CLOPIDOGREL BISULFATE 75 MG TAB PO SCH (08:58)
[2021-02-21] MEDS: ROSUVASTATIN CALCIUM 5 MG TAB PO SCH (08:59)
[2021-02-21] MEDS: dexAMETHasone 6 MG in SYRINGE 0 ML IV SCH (08:59)
[2021-02-21] MEDS: ASPIRIN 81 MG ECTAB PO SCH (08:59)
[2021-02-21] MEDS: EZETIMIBE 10 MG TABLET PO SCH (08:59)
[2021-02-21] MEDS: FLUTICASONE FUROATE 100MCG 14 PUFFS/INHALER INH SCH (09:00)
--- NOTE | 2021-02-21 09:06 | Electrocardiogram Report ---
Test Reason : Blood Pressure : / mmHG Vent. Rate : 073 BPM Atrial Rate : 073 BPM P-R Int : 194 ms QRS Dur : 182 ms QT Int : 472 ms P-R-T Axes : 062 -81 096 degrees QTc Int : 519 ms Atrial-sensed ventricular-paced rhythm Abnormal ECG When compared with ECG of 29-MAY-2020 16:42, Vent. rate has decreased BY 15 BPM Confirmed by Francisco Javier May ([id number]) on 02/21/2021 9:05:45 AM Referred By: REFERRED SELF Confirmed By:Francisco Javier May
[2021-02-21] MEDS: ALPRAZolam 0.5 MG TABLET PO SCH (09:12)
[2021-02-21] MEDS: UMECLIDINIUM/VILANTEROL 62.5/25MCG 7 PUFFS/INHALER INH SCH (09:13)
[2021-02-21 09:23] LABS: Estimated Average Glucose 209 mg/dl; Hemoglobin A1C 8.9 % (4.5-5.6)
[2021-02-21] MEDS ORDERED: PHARMACY GLYCEMIC MGMT CONSULT PRN (10:12)
[2021-02-21 10:46] LABS: BUN Creatinine Ratio 27.8 (10-20); Calcium 8.6 mg/dl (8.5-10.1); Creatinine Clr Calc Pharmacy 37.5 ml/min; Est GFR (Non-African American) 34.5 ml/min; Potassium 4.2 mmol/L (3.5-5.1)
[2021-02-21] MEDS: INSULIN HUMAN NPH SC SCH ×2 (10:50→10:59)
[2021-02-21] MEDS: REMDESIVIR 100 MG in SODIUM CHLORIDE 0.9% 230 ML IV SCH (12:18)
--- NOTE | 2021-02-21 13:17 | Pharmacy Report ---
Pharmacy Glycemic Short Note 2 - Date of Service February 21, 2021 - Glycemic Short BSG Results (Last 24 hours): 02/20/21 02/20/21 02/20/21 17:04 23:27 23:28 Glucose POC Glucose 282 H 332 H* 309 H* 02/21/21 02/21/21 02/21/21 05:52 07:09 07:38 Glucose 210 H POC Glucose 223 H 189 H 02/21/21 12:23 Glucose POC Glucose 237 H OUTPATIENT ANTIDIABETIC REGIMEN: * Lantus 26 units HS, Novolin R 12 units TIDM + SSI * A1c 8.9% - 02/21/21 ASSESSMENT: * 80 year old male admitted with COVID. Type 2 diabetic - started on dexamethasone yesterday. * Received total of 75 units of insulin yesterday, of which 26 units were home Lantus and 30 units were NPH to cover dexamethasone * BSGs trending up overnight into 300s - Pharmacy consulted this morning. AM novolog already given -plan to tighten CF/CR at lunch time. Did increase NPH dose to 35 units daily to cover steroids PLAN FOR INPATIENT GLYCEMIC CONTROL: * Hold outpatient oral diabetes medications * Basal insulin * Lantus 26 units HS - home dose * NPH 35 units x 1 to cover dexamethasone - will reevaluate dosing tomorrow AM * Bolus insulin * NovoLog per scale ACHS or Q6hrs while NPO * Goal Range: Low 110 mg/dL - High 150 mg/dL * Correction Factor: 15 mg/dL/unit * Nutritional / Prandial insulin per carb ratio of 1 unit per 6 grams CHO consumed PLAN FOR DISCHARGE: * TBD
[2021-02-21] MEDS: SODIUM CHLORIDE 0.9% 10ML FLUSH IV SCH (13:27)
--- NOTE | 2021-02-21 16:07 | Hospitalist Progress Note ---
Date of Service February 21, 2021 Assessment & Plan (1) Pneumonia due to COVID-19 virus: Plan: Patient presents with acute respiratory failure hypoxia secondary to COVID-19 viral pneumonia. Symptoms of Covid started 2 days prior to admission. He is fully vaccinated. -Requiring 6 L nasal cannula but stable Home dose of O2 is 2 L at rest and 4 L with exertion as per recent two-step walk test in the pulmonology office He does have risk factors of underlying mixed obstructive and restrictive lung disease Chest x-ray shows pulmonary edema and small pleural effusions-perhaps some element of volume overload-he was given IV Bumex in the ER on admission -Continued stay -Continue Remdesivir x5-day course -Continue dexamethasone x10-day course -Continue supplemental O2 to keep pulse ox greater than 90-92% -Add on incentive spirometry and flutter valve -Continue albuterol but change to scheduled 4 times daily dosing Hold home Bumex for acute kidney injury Continue home Umeclidinium/Vilanterol (2) Chronic respiratory failure with hypoxia: Plan: Follows with pulmonology for his mixed restrictive obstructive lung disease -Typically takes as needed albuterol plus Trelegy Ellipta and was referred to pulmonary rehab at his last appointment. Last FEV1 was 68% 2.18 L FEV1 FVC ratio 67% DLCO significantly reduced to 27%. Patient be maintained on his inhalers and is given steroids for his Covid pn eumonia which could also up in the inflammatory response from his underlying lung disease the primary speedboat driver of his acute respiratory failure hypoxia seems to be Covid pneumonia (3) Diabetes: Plan: With severe hyperglycemia here with glucose in the 300s secondary to corticosteroids Will need increasing doses of basal bolus insulin Have asked pharmacy to help manage his insulin regimen while inpatient Continue ADA diet Accu-Cheks (4) Elevated troponin: Plan: Patient has elevated troponin without acute current of injury seen on his EKG -He was markedly hypoxic and this is likely demand ischemia or type II UT Repeat troponin remains mildly elevated but not much increased from previous He has no chest pain -Continue aspirin and his beta-percy at this time plus continuing his statin for secondary disease prevention (5) Chronic diastolic (congestive) heart failure: Plan: Patient has a history of diastolic heart failure it appears to be with slight worsening on chest x-ray although could be Covid changes patient was given additional dose of diuretic in the ER We will hold p.o. Bumex until renal function improves back to baseline (6) MARJORIE (acute kidney injury): Plan: Patient is acute kidney injury on chronic kidney disease. He was given diuretics due to his pulmonary status will follow his renal function and involve nephrology if need be especially with his history of renal artery stenosis status post stenting Hold Bumex Renally dose medications Follow BMP (7) Hypertension: Plan: Patient has a history of renal artery stenting bilaterally by Dr. Pugh in 2020 with abdominal aortic aneurysm repair, and bilateral subclavian artery stenosis making accurate blood pressures difficult as per review of cardiology notes -Blood pressures are controlled Continues on metoprolol succinate 25 twice daily plus hydralazine 3 times daily. Amlodipine 10 at bedtime is held due to his blood pressure being slightly soft upon admission (8) Obesity (BMI 30.0-34.9): Plan: His morbid obesity places secondary risk for his Covid morbidity BMI is 30.4 (9) Status post placement of cardiac pacemaker: Plan: Placed for complete heart block in 03/2020 (10) Hypercholesterolemia: Plan: Continue statin and Zetia (11) Chronic kidney disease, stage III (moderate): Plan: Baseline creatinine 1.4-1.7 -Avoid nephrotoxins -renally dose meds when appropriate -follow BMP (12) CAD, multiple vessel: Plan: With a history of stent to the proximal to mid LAD and RCA in 07/2011 and stent to the mid circumflex with p.o. BA at the bifurcation of OM 2 secondary to a small NSTEMI -Continue aspirin, Plavix, Zetia, Crestor (13) Hypothyroidism: Plan: Continue levothyroxine TSH normal in 05/2020 (14) DVT prophylaxis: Plan: Lovenox-reduce dose to 40 mg once daily due to renal function Plan: Disposition-continued stay in Covid unit on telemetry Admission and Anticipated Discharge Date Admission Date: February 20, 2021 Subjective Patient reports feeling better today. Denies any shortness of breath or chest pain. He is on 6 L. He reports at home he is on 2 L at rest and sometimes 3 L with exertion. He reports his appetite is significantly improved since hospital admission compared to previous, perhaps related to receiving steroids. He denies any diarrhea or difficulty with urination. He is in really good spirits Telemetry with paced rhythm with rates in the 60s to 70s, one 8 beat run of V. tach that was asymptomatic Review of Systems Review of Systems: All systems reviewed & are unremarkable except as noted in HPI & below Physical Exam Constitutional: WD/WN, vitals as above Eyes: + anicteric sclerae Neck: trachea midline, no thyromegaly Respiratory: normal respiratory effort; no cough Auscultation: + diminished lung sounds (Throughout) and + wheezes (Left side); no crackles and no rhonchi Cardiovascular: RRR, no murmur, no edema Chest (Breasts): Chest: normal inspection of chest Gastrointestinal (Abdomen): normal bowel sounds, soft, nontender, no hepatosplenomegaly Musculoskeletal: Extremities: extremities normal to inspection; no cyanosis and no clubbing Skin: no rashes, warm and dry Neurologic: moves all extremities and awake; no focal motor deficits Psychiatric: A+Ox3, euthymic affect Lymphatic: no lymphedema Results & Data Results & Data ([facility]) Vital Signs (Past 12 Hours) Vital Signs Temp Pulse Pulse Resp BP Pulse Ox 02/21/21 12:15 36.7 C 73 18 144/79 H 93 02/21/21 08:00 60 02/21/21 07:37 37.4 C 75 21 140/100 92 Laboratory Results 02/21/21 02/21/21 02/21/21 Range/Units 20:16 20:15 16:49 Sodium (136-145) mmol/L Potassium (3.5-5.1) mmol/L Chloride (98-107) mmol/L Carbon Dioxide (21-32) mmol/L Anion Gap (3-11) BUN (7-18) mg/dl Creatinine (0.6-1.4) mg/dl Est Cr Clr Drug Dosing ml/min Est GFR ( Amer) ml/min Est GFR (Non-Af Amer) ml/min BUN/Creatinine Ratio (10-20) Glucose (70-99) mg/dl POC Glucose 313 H* 303 H* 215 H (70-99) mg/dl Estimat Average Glucose mg/dl Hemoglobin A1c (4.5-5.6) % Calcium (8.5-10.1) mg/dl Troponin I (0-0.045) ng/ml C-Reactive Protein (0-0.29) mg/dl 02/21/21 02/21/21 02/21/21 Range/Units 16:48 16:46 12:23 Sodium (136-145) mmol/L Potassium (3.5-5.1) mmol/L Chloride (98-107) mmol/L Carbon Dioxide (21-32) mmol/L Anion Gap (3-11) BUN (7-18) mg/dl Creatinine (0.6-1.4) mg/dl Est Cr Clr Drug Dosing ml/min Est GFR ( Amer) ml/min Est GFR (Non-Af Amer) ml/min BUN/Creatinine Ratio (10-20) Glucose (70-99) mg/dl POC Glucose 218 H 272 H 237 H (70-99) mg/dl Estimat Average Glucose mg/dl Hemoglobin A1c (4.5-5.6) % Calcium (8.5-10.1) mg/dl Troponin I (0-0.045) ng/ml C-Reactive Protein (0-0.29) mg/dl 02/21/21 02/21/21 02/21/21 Range/Units 07:38 07:09 07:09 Sodium 136 (136-145) mmol/L Potassium 4.2 (3.5-5.1) mmol/L Chloride 104 (98-107) mmol/L Carbon Dioxide 29 (21-32) mmol/L Anion Gap 3.0 (3-11) BUN 50 H (7-18) mg/dl Creatinine 1.80 H (0.6-1.4) mg/dl Est Cr Clr Drug Dosing 37.5 ml/min Est GFR ( Amer) 40.0 ml/min Est GFR (Non-Af Amer) 34.5 ml/min BUN/Creatinine Ratio 27.8 H (10-20) Glucose 210 H (70-99) mg/dl POC Glucose 189 H (70-99) mg/dl Estimat Average Glucose mg/dl Hemoglobin A1c (4.5-5.6) % Calcium 8.6 (8.5-10.1) mg/dl Troponin I 0.177 H* (0-0.045) ng/ml C-Reactive Protein 1.30 H (0-0.29) mg/dl 02/21/21 02/21/21 02/20/21 Range/Units 07:09 05:52 23:28 Sodium (136-145) mmol/L Potassium (3.5-5.1) mmol/L Chloride (98-107) mmol/L Carbon Dioxide (21-32) mmol/L Anion Gap (3-11) BUN (7-18) mg/dl Creatinine (0.6-1.4) mg/dl Est Cr Clr Drug Dosing ml/min Est GFR ( Amer) ml/min Est GFR (Non-Af Amer) ml/min BUN/Creatinine Ratio (10-20) Glucose (70-99) mg/dl POC Glucose 223 H 309 H* (70-99) mg/dl Estimat Average Glucose 209 mg/dl Hemoglobin A1c 8.9 H (4.5-5.6) % Calcium (8.5-10.1) mg/dl Troponin I (0-0.045) ng/ml C-Reactive Protein (0-0.29) mg/dl 02/20/21 02/20/21 Range/Units 23:27 09:30 Sodium (136-145) mmol/L Potassium (3.5-5.1) mmol/L Chloride (98-107) mmol/L Carbon Dioxide (21-32) mmol/L Anion Gap (3-11) BUN (7-18) mg/dl Creatinine (0.6-1.4) mg/dl Est Cr Clr Drug Dosing ml/min Est GFR ( Amer) ml/min Est GFR (Non-Af Amer) ml/min BUN/Creatinine Ratio (10-20) Glucose (70-99) mg/dl POC Glucose 332 H* (70-99) mg/dl Estimat Average Glucose mg/dl Hemoglobin A1c (4.5-5.6) % Calcium (8.5-10.1) mg/dl Troponin I (0-0.045) ng/ml C-Reactive Protein 0.91 H (0-0.29) mg/dl PG Care Time/CCT Total # of Minutes Spent Total Time Spent with Patient: Total time spent is greater than 50% in coordination of care (as documented) at patient's floor/unit and/or counseling patient: Coding Level of Care Code 57682 Subseq Hosp Care Lvl 3 Diagnoses Pneumonia due to COVID-19 virus U07.1; J12.82 Chronic respiratory failure with hypoxia J96.11 Diabetes E11.22; N18.3; Z79.4 Chronic kidney disease stage: stage 3 (moderate) Diabetes mellitus complication detail: with chronic kidney disease Diabetes mellitus complication status: with kidney complications Diabetes mellitus detention insulin use: with detention use Diabetes mellitus type: type 2 Elevated troponin R77.8 Chronic diastolic (congestive) heart failure I50.32 MARJORIE (acute kidney injury) N17.9 Hypertension I10 Obesity (BMI 30.0-34.9) E66.9 DVT prophylaxis Z29.9 Status post placement of cardiac pacemaker Z95.0 Hypercholesterolemia E78.00 Chronic kidney disease, stage III (moderate) N18.3 CAD, multiple vessel I25.10 Hypothyroidism E03.9 Hypothyroidism type: acquired (1) Diabetes Chronic kidney disease stage: stage 3 (moderate) Diabetes mellitus complication detail: with chronic kidney disease Diabetes mellitus complication status: with kidney complications Diabetes mellitus sr. payroll manager insulin use: with sr. payroll manager use Diabetes mellitus type: type 2 Qualified Code(s): E11.22 - Type 2 diabetes mellitus with diabetic chronic kidney disease; N18.3 - Chronic kidney disease, stage 3 (moderate); Z79.4 - care home (current) use of 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
[2021-02-21] MEDS: ALBUTEROL HFA 8 GM INHALER INH SCH (19:15)
[2021-02-21] MEDS ORDERED: SODIUM CHLORIDE 0.9% 10ML FLUSH IV SCH (20:00)
[2021-02-21] MEDS ORDERED: INSULIN ASPART 100 UNITS/ML VIAL SC SCH (23:00)
[2021-02-22] MEDS ORDERED: INSULIN ASPART 100 UNITS/ML VIAL SC SCH
[2021-02-22] MEDS: ALBUTEROL HFA 8 GM INHALER INH SCH ×4 (05:40→19:37)
[2021-02-22] MEDS: LEVOTHYROXINE SODIUM 25 MCG TABLET PO SCH (06:18)
[2021-02-22] MEDS: CLOPIDOGREL BISULFATE 75 MG TAB PO SCH (08:02)
[2021-02-22] MEDS: dexAMETHasone 6 MG in SYRINGE 0 ML IV SCH (08:02)
[2021-02-22] MEDS: ENOXAPARIN INJ 40 MG/0.4 ML SYR SQ SCH (08:03)
[2021-02-22] MEDS: EZETIMIBE 10 MG TABLET PO SCH (08:03)
[2021-02-22] MEDS: hydrALAZINE TAB 50 MG TAB PO SCH ×3 (08:03→21:02)
[2021-02-22] MEDS: FLUTICASONE FUROATE 100MCG 14 PUFFS/INHALER INH SCH (08:03)
[2021-02-22] MEDS: UMECLIDINIUM/VILANTEROL 62.5/25MCG 7 PUFFS/INHALER INH SCH (08:04)
[2021-02-22] MEDS: METOPROLOL SUCC 25MG EXT REL TAB PO SCH ×2 (08:04→21:03)
[2021-02-22] MEDS: INSULIN HUMAN NPH SC SCH (08:30)
[2021-02-22 09:07] LABS: Hematocrit (blood only) 40.5 % (42-52); Hemoglobin 13.7 g/dL (14.0-18.0); Mean Corpuscular Hgb Conc 33.8 g/dL (32-36); Mean Corpuscular Volume 91.6 fL (80-100); Mean Platelet Volume 10.6 fL (7.4-10.4); Platelet Count 241 K/uL (130-400); RDW Coefficient of Variation 14.3 % (11.5-14.5); RDW Standard Deviation 48.6 fL (36.4-46.3); Red Blood Count 4.42 M/uL (4.7-6.1); White Blood Count 8.94 K/uL (4.8-10.8)
[2021-02-22] MEDS: INSULIN ASPART 100 UNITS/ML VIAL SC SCH ×4 (09:30→21:05)
[2021-02-22] MEDS: ALPRAZolam 0.5 MG TABLET PO SCH (09:37)
[2021-02-22 09:52] LABS: BUN Creatinine Ratio 30.8 (10-20); C Reactive Protein 0.8 mg/dl (0-0.29); Calcium 8.5 mg/dl (8.5-10.1); Creatinine Clr Calc Pharmacy 36.7 ml/min; Est GFR (Non-African American) 33.6 ml/min
[2021-02-22] MEDS: REMDESIVIR 100 MG in SODIUM CHLORIDE 0.9% 230 ML IV SCH (13:41)
--- NOTE | 2021-02-22 14:29 | Pharmacy Report ---
Pharmacy Glycemic Short Note 2 - Date of Service February 22, 2021 - Glycemic Short BSG Results (Last 24 hours): 02/21/21 02/21/21 02/21/21 16:46 16:48 16:49 Glucose POC Glucose 272 H 218 H 215 H 02/21/21 02/21/21 02/22/21 20:15 20:16 00:28 Glucose POC Glucose 303 H* 313 H* 190 H 02/22/21 02/22/21 02/22/21 07:09 07:20 11:17 Glucose 93 POC Glucose 107 H 250 H OUTPATIENT ANTIDIABETIC REGIMEN: * Lantus 26 units HS, Novolin R 12 units TIDM + SSI * A1c 8.9% - 02/21/21 ASSESSMENT: 02/22 * Patient received total of 110 units of insulin yesterday, of which 61 units were basal (35 units NPH, 26 units Lantus) * Fasting BSG 107 mg/dL - plan to continue PM Lantus/home dosing, may loosen CF slightly at HS time as BSGs tend to drop overnight * Tightened CF/CR this AM 02/21 * 80 year old male admitted with COVID. Type 2 diabetic - started on dexamethasone yesterday. * Received total of 75 units of insulin yesterday, of which 26 units were home Lantus and 30 units were NPH to cover dexamethasone * BSGs trending up overnight into 300s - Pharmacy consulted this morning. AM novolog already given -plan to tighten CF/CR at lunch time. Did increase NPH dose to 35 units daily to cover steroids PLAN FOR INPATIENT GLYCEMIC CONTROL: * Hold outpatient oral diabetes medications * Basal insulin * Lantus 26 units HS - home dose * NPH 35 units daily to be given with dexamethasone 6 mg iv * Bolus insulin - tighten * NovoLog per scale ACHS or Q6hrs while NPO * Goal Range: Low 110 mg/dL - High 150 mg/dL * Correction Factor: 12 mg/dL/unit * Nutritional / Prandial insulin per carb ratio of 1 unit per 4 grams CHO consumed PLAN FOR DISCHARGE: * TBD
[2021-02-22] MEDS: SODIUM CHLORIDE 0.9% 10ML FLUSH IV SCH (14:50)
--- NOTE | 2021-02-22 19:26 | Hospitalist Progress Note ---
Date of Service February 22, 2021 Assessment & Plan (1) Pneumonia due to COVID-19 virus: Plan: Patient presents with acute respiratory failure hypoxia secondary to COVID-19 viral pneumonia. Symptoms of Covid started 2 days prior to admission. He is fully vaccinated. -Was requiring 6 L nasal cannula but now weaned back to his home O2 of 2 L at rest He does have risk factors of underlying mixed obstructive and restrictive lung disease Chest x-ray shows pulmonary edema and small pleural effusions-perhaps some element of volume overload-he was given IV Bumex in the ER on admission -Continued stay to make sure he does not worsen as he is still early in the course of illness -Continue Remdesivir x5-day course -Continue dexamethasone x10-day course -Continue supplemental O2 to keep pulse ox greater than 90-92% -Continue on incentive spirometry and flutter valve -Continue albuterol scheduled 4 times daily dosing Continue to hold home Bumex for acute kidney injury Continue home Umeclidinium/Vilanterol (2) Chronic respiratory failure with hypoxia: Plan: Follows with pulmonology for his mixed restrictive obstructive lung disease -Typically takes as needed albuterol plus Trelegy Ellipta and was referred to pulmonary rehab at his last appointment. Last FEV1 was 68% 2.18 L FEV1 FVC ratio 67% DLCO significantly reduced to 27%. Patient be maintained on his inhalers and is given steroids for his Covid pneumonia which could also up in the inflammatory response from his underlying lung disease the primary jinrikisha driver of his acute respiratory failure hypoxia seems to be Covid pneumonia (3) Diabetes: Plan: With severe hyperglycemia here with glucose in the 300s secondary to corticosteroids initially, still with some hyperglycemia but improving down to the 200s Will need increasing doses of basal bolus insulin Have asked pharmacy to help manage his insulin regimen while inpatient Continue ADA diet Accu-Cheks (4) Elevated troponin: Plan: Patient has elevated troponin without acute current of injury seen on his EKG -He was markedly hypoxic and this is likely demand ischemia or type II [place] Repeat troponin remains mildly elevated but not much increased from previous He has no chest pain -Continue aspirin and his beta-percy at this time plus continuing his statin for secondary disease prevention (5) Chronic diastolic (congestive) heart failure: Plan: Patient has a history of diastolic heart failure it appears to be with slight worsening on chest x-ray although could be Covid changes patient was given additional dose of diuretic in the ER We will hold p.o. Bumex until renal function improves back to baseline (6) MARJORIE (acute kidney injury): Plan: Patient is with acute kidney injury on chronic kidney disease. He was given diuretics due to his pulmonary status will follow his renal function and involve nephrology if need be especially with his history of renal artery stenosis status post stenting Creatinine is stabilized at 1.8 which is now much above his baseline Continue to hold Bumex Renally dose medications Follow BMP (7) Hypertension: Plan: Patient has a history of renal artery stenting bilaterally by Dr. Pugh in 2020 with abdominal aortic aneurysm repair, and bilateral subclavian artery stenosis making accurate blood pressures difficult as per review of cardiology notes -Blood pressures are controlled Continues on metoprolol succinate 25 twice daily plus hydralazine 3 times daily. Amlodipine 10 at bedtime is held due to his blood pressure being slightly soft upon admission (8) Obesity (BMI 30.0-34.9): Plan: His morbid obesity places secondary risk for his Covid morbidity BMI is 30.4 (9) Status post placement of cardiac pacemaker: Plan: Placed for complete heart block in 03/2020 (10) Hypercholesterolemia: Plan: Continue statin and Zetia (11) Chronic kidney disease, stage III (moderate): Plan: Baseline creatinine 1.4-1.7 -Avoid nephrotoxins -renally dose meds when appropriate -follow BMP (12) CAD, multiple vessel: Plan: With a history of stent to the proximal to mid LAD and RCA in 07/2011 and stent to the mid circumflex with p.o. BA at the bifurcation of OM 2 secondary to a small NSTEMI -Continue aspirin, Plavix, Zetia, Crestor (13) Hypothyroidism: Plan: Continue levothyroxine TSH normal in 05/2020 (14) DVT prophylaxis: Plan: Lovenox- 40 mg once daily due to renal function Plan: Disposition-continued stay in Covid unit on telemetry Admission and Anticipated Discharge Date Admission Date: February 20, 2021 Subjective Patient has concerns with a possible left ear infection as he has some fullness sensation left ear and had dizziness prior to admission. No significant pain in the ear. He is very happy that he is weaned back down to 2 L nasal cannula which is his baseline. He denies any shortness of breath and feels improved. Telemetry with paced rhythm in the 60s. He has no other complaints and is eating well. Review of Systems Review of Systems: All systems reviewed & are unremarkable except as noted in HPI & below Physical Exam Constitutional: WD/WN, vitals as above Eyes: + anicteric sclerae ENMT: Ears: no hearing impairment, no external ear abnormality, no EAC abnormality and no TM abnormality Neck: trachea midline, no thyromegaly Respiratory: normal respiratory effort; no cough Auscultation: lungs clear to auscultation bilaterally and + diminished lung sounds (Throughout) Cardiovascular: RRR, no murmur, no edema Chest (Breasts): Chest: normal inspection of chest Gastrointestinal (Abdomen): normal bowel sounds, soft, nontender, no hepatosplenomegaly Musculoskeletal: Extremities: extremities normal to inspection; no cyanosis and no clubbing Skin: no rashes, warm and dry Neurologic: moves all extremities and awake; no focal motor deficits Psychiatric: A+Ox3, euthymic affect Lymphatic: no lymphedema Results & Data Results & Data ([facility]) Vital Signs (Past 12 Hours) Vital Signs Temp Pulse Pulse Resp BP Pulse Ox Pulse Ox 02/22/21 15:35 36.5 C 62 20 99/58 L 96 02/22/21 15:09 86 18 92 02/22/21 11:18 36.4 C L 64 19 125/88 93 02/22/21 10:53 82 18 96 02/22/21 09:00 95 02/22/21 08:00 60 Laboratory Results 02/22/21 02/22/21 02/22/21 Range/Units 20:40 16:36 11:17 WBC (4.8-10.8) K/uL RBC (4.7-6.1) M/uL Hgb (14.0-18.0) g/dL Hct (42-52) % MCV (80-100) fL MCH (25-34) pg MCHC (32-36) g/dL RDW Std Deviation (36.4-46.3) fL RDW Coeff of Pj (11.5-14.5) % Plt Count (130-400) K/uL MPV (7.4-10.4) fL Sodium (136-145) mmol/L Potassium (3.5-5.1) mmol/L Chloride (98-107) mmol/L Carbon Dioxide (21-32) mmol/L Anion Gap (3-11) BUN (7-18) mg/dl Creatinine (0.6-1.4) mg/dl Est Cr Clr Drug Dosing ml/min Est GFR ( Amer) ml/min Est GFR (Non-Af Amer) ml/min BUN/Creatinine Ratio (10-20) Glucose (70-99) mg/dl POC Glucose 206 H 193 H 250 H (70-99) mg/dl Calcium (8.5-10.1) mg/dl C-Reactive Protein (0-0.29) mg/dl 02/22/21 02/22/21 02/22/21 Range/Units 07:20 07:20 07:09 WBC 8.94 (4.8-10.8) K/uL RBC 4.42 L (4.7-6.1) M/uL Hgb 13.7 L (14.0-18.0) g/dL Hct 40.5 L (42-52) % MCV 91.6 (80-100) fL MCH 31.0 (25-34) pg MCHC 33.8 (32-36) g/dL RDW Std Deviation 48.6 H (36.4-46.3) fL RDW Coeff of Pj 14.3 (11.5-14.5) % Plt Count 241 (130-400) K/uL MPV 10.6 H (7.4-10.4) fL Sodium 140 (136-145) mmol/L Potassium 4.0 (3.5-5.1) mmol/L Chloride 106 (98-107) mmol/L Carbon Dioxide 23 (21-32) mmol/L Anion Gap 12.0 H (3-11) BUN 57 H (7-18) mg/dl Creatinine 1.84 H (0.6-1.4) mg/dl Est Cr Clr Drug Dosing 36.7 ml/min Est GFR ( Amer) 39.0 ml/min Est GFR (Non-Af Amer) 33.6 ml/min BUN/Creatinine Ratio 30.8 H (10-20) Glucose 93 (70-99) mg/dl POC Glucose 107 H (70-99) mg/dl Calcium 8.5 (8.5-10.1) mg/dl C-Reactive Protein 0.80 H (0-0.29) mg/dl 02/22/21 Range/Units 00:28 WBC (4.8-10.8) K/uL RBC (4.7-6.1) M/uL Hgb (14.0-18.0) g/dL Hct (42-52) % MCV (80-100) fL MCH (25-34) pg MCHC (32-36) g/dL RDW Std Deviation (36.4-46.3) fL RDW Coeff of Pj (11.5-14.5) % Plt Count (130-400) K/uL MPV (7.4-10.4) fL Sodium (136-145) mmol/L Potassium (3.5-5.1) mmol/L Chloride (98-107) mmol/L Carbon Dioxide (21-32) mmol/L Anion Gap (3-11) BUN (7-18) mg/dl Creatinine (0.6-1.4) mg/dl Est Cr Clr Drug Dosing ml/min Est GFR ( Amer) ml/min Est GFR (Non-Af Amer) ml/min BUN/Creatinine Ratio (10-20) Glucose (70-99) mg/dl POC Glucose 190 H (70-99) mg/dl Calcium (8.5-10.1) mg/dl C-Reactive Protein (0-0.29) mg/dl PG Care Time/CCT Total # of Minutes Spent Total Time Spent with Patient: Total time spent is greater than 50% in coordination of care (as documented) at patient's floor/unit and/or counseling patient: Coding Level of Care Code 99220 Subseq Hosp Care Lvl 3 Diagnoses Pneumonia due to COVID-19 virus U07.1; J12.82 Chronic respiratory failure with hypoxia J96.11 Diabetes E11.22; N18.3; Z79.4 Chronic kidney disease stage: stage 3 (moderate) Diabetes mellitus complication detail: with chronic kidney disease Diabetes mellitus complication status: with kidney complications Diabetes mellitus usp insulin use: with usp use Diabetes mellitus type: type 2 Elevated troponin R77.8 Chronic diastolic (congestive) heart failure I50.32 MARJORIE (acute kidney injury) N17.9 Hypertension I10 Obesity (BMI 30.0-34.9) E66.9 Status post placement of cardiac pacemaker Z95.0 Hypercholesterolemia E78.00 Chronic kidney disease, stage III (moderate) N18.3 CAD, multiple vessel I25.10 Hypothyroidism E03.9 Hypothyroidism type: acquired DVT prophylaxis Z29.9 (1) Diabetes Chronic kidney disease stage: stage 3 (moderate) Diabetes mellitus complication detail: with chronic kidney disease Diabetes mellitus complication status: with kidney complications Diabetes mellitus usp insulin use: with usp use Diabetes mellitus type: type 2 Qualified Code(s): E11.22 - Type 2 diabetes mellitus with diabetic chronic kidney disease; N18.3 - Chronic kidney disease, stage 3 (moderate); 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
[2021-02-22] MEDS: INSULIN GLARGINE SOLOSTAR 100 UNITS/ML 3 ML PEN SQ SCH (21:05)
[2021-02-23] MEDS: LEVOTHYROXINE SODIUM 25 MCG TABLET PO SCH (05:43)
[2021-02-23] MEDS: ALBUTEROL HFA 8 GM INHALER INH SCH ×4 (07:57→19:41)
[2021-02-23] MEDS: INSULIN ASPART 100 UNITS/ML VIAL SC SCH ×4 (08:51→21:34)
[2021-02-23] MEDS: INSULIN HUMAN NPH SC SCH (08:53)
[2021-02-23] MEDS: EZETIMIBE 10 MG TABLET PO SCH (08:55)
[2021-02-23] MEDS: ROSUVASTATIN CALCIUM 5 MG TAB PO SCH (08:55)
[2021-02-23] MEDS: ALPRAZolam 0.5 MG TABLET PO SCH (08:55)
[2021-02-23] MEDS: ASPIRIN 81 MG ECTAB PO SCH (08:56)
[2021-02-23] MEDS: CLOPIDOGREL BISULFATE 75 MG TAB PO SCH (08:56)
[2021-02-23] MEDS: hydrALAZINE TAB 50 MG TAB PO SCH ×3 (08:56→21:14)
[2021-02-23] MEDS: dexAMETHasone 6 MG in SYRINGE 0 ML IV SCH (08:57)
[2021-02-23] MEDS: METOPROLOL SUCC 25MG EXT REL TAB PO SCH ×2 (08:57→21:15)
[2021-02-23] MEDS: ENOXAPARIN INJ 40 MG/0.4 ML SYR SQ SCH (08:58)
[2021-02-23] MEDS: FLUTICASONE FUROATE 100MCG 14 PUFFS/INHALER INH SCH (09:00)
[2021-02-23] MEDS: UMECLIDINIUM/VILANTEROL 62.5/25MCG 7 PUFFS/INHALER INH SCH (09:01)
[2021-02-23 09:43] LABS: Calcium 8.4 mg/dl (8.5-10.1); Creatinine Clr Calc Pharmacy 38.9 ml/min; Est GFR (African American) 42.3 ml/min; Est GFR (Non-African American) 36.5 ml/min; Magnesium 2.1 mg/dl (1.8-2.4); Potassium 3.8 mmol/L (3.5-5.1)
[2021-02-23] MEDS: REMDESIVIR 100 MG in SODIUM CHLORIDE 0.9% 230 ML IV SCH (12:05)
[2021-02-23] MEDS: SODIUM CHLORIDE 0.9% 10ML FLUSH IV SCH (14:06)
--- NOTE | 2021-02-23 14:26 | Pharmacy Report ---
Pharmacy Glycemic Short Note 2 - Date of Service February 23, 2021 - Glycemic Short BSG Results (Last 24 hours): 02/22/21 02/22/21 02/23/21 16:36 20:40 07:53 Glucose POC Glucose 193 H 206 H 110 H 02/23/21 02/23/21 07:58 11:59 Glucose 106 H POC Glucose 188 H OUTPATIENT ANTIDIABETIC REGIMEN: * Lantus 26 units HS, Novolin R 12 units TIDM + SSI * A1c 8.9% - 02/21/21 ASSESSMENT: 02/23 * Patient received total of 110 units of insulin yesterday * Fasting BSG 110 mg/dL - plan to continue PM Lantus/home dosing * Blood sugars rising throughout the day, tighten CR and increase NPH 02/22 * Patient received total of 110 units of insulin yesterday, of which 61 units were basal (35 units NPH, 26 units Lantus) * Fasting BSG 107 mg/dL - plan to continue PM Lantus/home dosing, may loosen CF slightly at HS time as BSGs tend to drop overnight * Tightened CF/CR this AM 02/21 * 80 year old male admitted with COVID. Type 2 diabetic - started on dexamethasone yesterday. * Received total of 75 units of insulin yesterday, of which 26 units were home Lantus and 30 units were NPH to cover dexamethasone * BSGs trending up overnight into 300s - Pharmacy consulted this morning. AM novolog already given -plan to tighten CF/CR at lunch time. Did increase NPH dose to 35 units daily to cover steroids PLAN FOR INPATIENT GLYCEMIC CONTROL: * Basal insulin * Lantus 26 units HS * NPH 40 units daily with dexamethasone 6 mg IV * Bolus insulin * NovoLog per scale ACHS or Q6hrs while NPO * Goal Range: Low 110 mg/dL - High 150 mg/dL * Correction Factor: 12 mg/dL/unit * Nutritional / Prandial insulin per carb ratio of 1 unit per 3 grams CHO consumed PLAN FOR DISCHARGE: * TBD
--- NOTE | 2021-02-23 16:47 | Hospitalist Progress Note ---
Date of Service February 23, 2021 Assessment & Plan (1) Pneumonia due to COVID-19 virus: Plan: Patient presents with acute respiratory failure hypoxia secondary to COVID-19 viral pneumonia. Symptoms of Covid started 2 days prior to admission. He is fully vaccinated. -Was requiring 6 L nasal cannula but now weaned back to his home O2 of 2 L at rest He does have risk factors of underlying mixed obstructive and restrictive lung disease Chest x-ray shows pulmonary edema and small pleural effusions-perhaps some element of volume overload-he was given IV Bumex in the ER on admission Starting to develop more fatigue on 02/23, concerned he might be possibly worsening as he is approaching day 7 in his illness -Continued stay to make sure he does not worsen as he is still early in the course of illness -Continue Remdesivir x5-day course -Continue dexamethasone x10-day course -Continue supplemental O2 to keep pulse ox greater than 90-92% -Continue on incentive spirometry and flutter valve -Continue albuterol scheduled 4 times daily dosing Continue to hold home Bumex for acute kidney injury Continue home Umeclidinium/Vilanterol (2) Chronic respiratory failure with hypoxia: Plan: Follows with pulmonology for his mixed restrictive obstructive lung disease -Typically takes as needed albuterol plus Trelegy Ellipta and was referred to pulmonary rehab at his last appointment. Last FEV1 was 68% 2.18 L FEV1 FVC ratio 67% DLCO significantly reduced to 27%. Patient be maintained on his inhalers and is given steroids for his Covid pneumonia which could also up in the inflammatory response from his underlying lung disease the primary canal driver of his acute respiratory failure hypoxia seems to be Covid pneumonia (3) Diabetes: Plan: With severe hyperglycemia here with glucose in the 300s secondary to corticosteroids initially, now improved with increased doses of insulin Have asked pharmacy to help manage his insulin regimen while inpatient Continue ADA diet Accu-Cheks (4) Elevated troponin: Plan: Patient has elevated troponin without acute current of injury seen on his EKG -He was markedly hypoxic and this is likely demand ischemia or type II [place] Repeat troponin remains mildly elevated but not much increased from previous He has no chest pain -Continue aspirin and his beta-percy at this time plus continuing his statin for secondary disease prevention (5) Chronic diastolic (congestive) heart failure: Plan: Patient has a history of diastolic heart failure it appears to be with slight worsening on chest x-ray although could be Covid changes patient was given additional dose of diuretic in the ER We will hold p.o. Bumex until renal function improves back to baseline (6) MARJORIE (acute kidney injury): Plan: Patient is with acute kidney injury on chronic kidney disease. He was given diuretics due to his pulmonary status will follow his renal function and involve nephrology if need be especially with his history of renal artery stenosis status post stenting Creatinine is stabilized at 1.6 which is not much above his baseline Continue to hold Bumex Renally dose medications Follow BMP (7) Hypertension: Plan: Patient has a history of renal artery stenting bilaterally by Dr. Pugh in 2020 with abdominal aortic aneurysm repair, and bilateral subclavian artery stenosis making accurate blood pressures difficult as per review of cardiology notes -Blood pressures are controlled Continues on metoprolol succinate 25 twice daily plus hydralazine 3 times daily. Amlodipine 10 at bedtime is held due to his blood pressure being slightly soft upon admission (8) Obesity (BMI 30.0-34.9): Plan: His morbid obesity places secondary risk for his Covid morbidity BMI is 30.4 (9) Status post placement of cardiac pacemaker: Plan: Placed for complete heart block in 03/2020 (10) Hypercholesterolemia: Plan: Continue statin and Zetia (11) Chronic kidney disease, stage III (moderate): Plan: Baseline creatinine 1.4-1.7 -Avoid nephrotoxins -renally dose meds when appropriate -follow BMP (12) CAD, multiple vessel: Plan: With a history of stent to the proximal to mid LAD and RCA in 07/2011 and stent to the mid circumflex with POBA at the bifurcation of OM 2 secondary to a small NSTEMI -Continue aspirin, Plavix, Zetia, Crestor (13) Hypothyroidism: Plan: Continue levothyroxine TSH normal in 05/2020 (14) DVT prophylaxis: Plan: Lovenox- 40 mg once daily due to renal function Plan: Disposition-continued stay in Covid unit on telemetry Admission and Anticipated Discharge Date Admission Date: February 20, 2021 Subjective Feeling a lot more fatigue today. Not SOB and remains on 2LNC. APpetite down a bit today. Feels a "little woozy" but overall better than when he came in. No CP. Is moving bowels, making urine Tele with paced rhythm in the 60s Review of Systems Review of Systems: All systems reviewed & are unremarkable except as noted in HPI & below Physical Exam Constitutional: WD/WN, vitals as above Eyes: + anicteric sclerae Neck: trachea midline, no thyromegaly Respiratory: normal respiratory effort; no cough Auscultation: lungs clear to auscultation bilaterally and + diminished lung sounds (Throughout) Cardiovascular: RRR, no murmur, no edema Chest (Breasts): Chest: normal inspection of chest Gastrointestinal (Abdomen): normal bowel sounds, soft, nontender, no hepatosplenomegaly Musculoskeletal: Extremities: extremities normal to inspection; no cyanosis and no clubbing Skin: no rashes, warm and dry Neurologic: moves all extremities and awake; no focal motor deficits Psychiatric: A+Ox3, euthymic affect Lymphatic: no lymphedema Results & Data Results & Data ([facility]) Vital Signs (Past 12 Hours) Vital Signs Temp Pulse Pulse Resp BP Pulse Ox Pulse Ox 02/23/21 14:43 36.5 C 18 122/71 95 02/23/21 11:19 89 18 90 02/23/21 11:10 36.7 C 18 125/71 94 02/23/21 09:00 92 02/23/21 08:00 60 02/23/21 07:58 60 18 93 02/23/21 07:16 36.4 C L 69 18 146/78 H 93 Laboratory Results 02/23/21 02/23/21 02/23/21 Range/Units 16:41 11:59 07:58 Sodium 139 (136-145) mmol/L Potassium 3.8 (3.5-5.1) mmol/L Chloride 107 (98-107) mmol/L Carbon Dioxide 22 (21-32) mmol/L Anion Gap 10.0 (3-11) BUN 58 H (7-18) mg/dl Creatinine 1.72 H (0.6-1.4) mg/dl Est Cr Clr Drug Dosing 38.9 ml/min Est GFR ( Amer) 42.3 ml/min Est GFR (Non-Af Amer) 36.5 ml/min BUN/Creatinine Ratio 34.0 H (10-20) Glucose 106 H (70-99) mg/dl POC Glucose 158 H 188 H (70-99) mg/dl Calcium 8.4 L (8.5-10.1) mg/dl Magnesium 2.1 (1.8-2.4) mg/dl 02/23/21 02/22/21 Range/Units 07:53 20:40 Sodium (136-145) mmol/L Potassium (3.5-5.1) mmol/L Chloride (98-107) mmol/L Carbon Dioxide (21-32) mmol/L Anion Gap (3-11) BUN (7-18) mg/dl Creatinine (0.6-1.4) mg/dl Est Cr Clr Drug Dosing ml/min Est GFR ( Amer) ml/min Est GFR (Non-Af Amer) ml/min BUN/Creatinine Ratio (10-20) Glucose (70-99) mg/dl POC Glucose 110 H 206 H (70-99) mg/dl Calcium (8.5-10.1) mg/dl Magnesium (1.8-2.4) mg/dl PG Care Time/CCT Total # of Minutes Spent Total Time Spent with Patient: Total time spent is greater than 50% in coordination of care (as documented) at patient's floor/unit and/or counseling patient: Coding Level of Care Code 53648 Subseq Hosp Care Lvl 2 Diagnoses Pneumonia due to COVID-19 virus U07.1; J12.82 Chronic respiratory failure with hypoxia J96.11 Diabetes E11.22; N18.3; Z79.4 Diabetes mellitus type: type 2 Diabetes mellitus manager intermediate insulin use: with fci use Diabetes mellitus complication status: with kidney complications Diabetes mellitus complication detail: with chronic kidney disease Chronic kidney disease stage: stage 3 (moderate) Elevated troponin R77.8 Chronic diastolic (congestive) heart failure I50.32 MARJORIE (acute kidney injury) N17.9 Hypertension I10 Obesity (BMI 30.0-34.9) E66.9 Status post placement of cardiac pacemaker Z95.0 Hypercholesterolemia E78.00 Chronic kidney disease, stage III (moderate) N18.3 CAD, multiple vessel I25.10 Hypothyroidism E03.9 Hypothyroidism type: acquired DVT prophylaxis Z29.9 (1) Diabetes Diabetes mellitus type: type 2 Diabetes mellitus fci insulin use: with fci use Diabetes mellitus complication status: with kidney complications Diabetes mellitus complication detail: with chronic kidney disease Chronic kidney disease stage: stage 3 (moderate) Qualified Code(s): E11.22 - Type 2 diabetes mellitus with diabetic chronic kidney disease; N18.3 - Chronic kidney disease, stage 3 (moderate); 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
[2021-02-23] MEDS: INSULIN GLARGINE SOLOSTAR 100 UNITS/ML 3 ML PEN SQ SCH (21:35)
[2021-02-24] MEDS: LEVOTHYROXINE SODIUM 25 MCG TABLET PO SCH (05:35)
[2021-02-24] MEDS: ALBUTEROL HFA 8 GM INHALER INH SCH ×3 (06:52→16:25)
[2021-02-24 07:23] LABS: Hematocrit (blood only) 41.7 % (42-52); Hemoglobin 14.3 g/dL (14.0-18.0); Mean Corpuscular Hemoglobin 31.3 pg (25-34); Mean Corpuscular Hgb Conc 34.3 g/dL (32-36); Mean Corpuscular Volume 91.2 fL (80-100); Mean Platelet Volume 10.6 fL (7.4-10.4); Platelet Count 248 K/uL (130-400); RDW Coefficient of Variation 14.4 % (11.5-14.5); RDW Standard Deviation 48.4 fL (36.4-46.3); Red Blood Count 4.57 M/uL (4.7-6.1); White Blood Count 8.93 K/uL (4.8-10.8)
[2021-02-24 07:55] LABS: BUN Creatinine Ratio 38.7 (10-20); C Reactive Protein 0.3 mg/dl (0-0.29); Calcium 8.6 mg/dl (8.5-10.1); Creatinine Clr Calc Pharmacy 41.6 ml/min; Est GFR (African American) 45.8 ml/min; Est GFR (Non-African American) 39.5 ml/min
[2021-02-24] MEDS: hydrALAZINE TAB 50 MG TAB PO SCH ×3 (08:10→21:03)
[2021-02-24] MEDS: dexAMETHasone 6 MG in SYRINGE 0 ML IV SCH (08:12)
[2021-02-24] MEDS: CLOPIDOGREL BISULFATE 75 MG TAB PO SCH (08:15)
[2021-02-24] MEDS: ENOXAPARIN INJ 40 MG/0.4 ML SYR SQ SCH (08:16)
[2021-02-24] MEDS: METOPROLOL SUCC 25MG EXT REL TAB PO SCH ×2 (08:17→21:04)
[2021-02-24] MEDS: EZETIMIBE 10 MG TABLET PO SCH (08:17)
[2021-02-24] MEDS: UMECLIDINIUM/VILANTEROL 62.5/25MCG 7 PUFFS/INHALER INH SCH (08:18)
[2021-02-24] MEDS: FLUTICASONE FUROATE 100MCG 14 PUFFS/INHALER INH SCH (08:18)
[2021-02-24] MEDS: ALPRAZolam 0.5 MG TABLET PO SCH (08:44)
[2021-02-24] MEDS: INSULIN HUMAN NPH SC SCH (08:45)
[2021-02-24] MEDS: INSULIN ASPART 100 UNITS/ML VIAL SC SCH ×4 (08:49→21:08)
[2021-02-24] MEDS: REMDESIVIR 100 MG in SODIUM CHLORIDE 0.9% 230 ML IV SCH (11:34)
[2021-02-24] MEDS: SODIUM CHLORIDE 0.9% 10ML FLUSH IV SCH (12:58)
--- NOTE | 2021-02-24 15:57 | Hospitalist Progress Note ---
Date of Service February 24, 2021 Assessment & Plan (1) Pneumonia due to COVID-19 virus: Plan: Patient presents with acute respiratory failure hypoxia secondary to COVID-19 viral pneumonia. Symptoms of Covid started 2 days prior to admission. He is fully vaccinated. -Was requiring 6 L nasal cannula but now weaned back to his home O2 of 2 L at rest x 2 days POx does drop to 80s with minimal exertion in room He does have risk factors of underlying mixed obstructive and restrictive lung disease Chest x-ray shows pulmonary edema and small pleural effusions-perhaps some element of volume overload-he was given IV Bumex in the ER on admission Fatigue is improving, CRP improved, however I am concerned about possibility of "cytokine storm" and worsening around the 8th day of illness which would be tomorrow, therefore will keep him here overnight at least one more night just to be sure not worsening -Continued stay to make sure he does not worsen as he is still early in the course of illness -Completed Remdesivir x5-day course -Continue dexamethasone x10-day course -Continue supplemental O2 to keep pulse ox greater than 90-92% -Continue on incentive spirometry and flutter valve -Continue albuterol but change from scheduled to prn -was holding home Bumex for acute kidney injury which is now improved-restart home bumex in the AM Continue home Umeclidinium/Vilanterol (2) Chronic respiratory failure with hypoxia: Plan: Follows with pulmonology for his mixed restrictive obstructive lung disease -Typically takes as needed albuterol plus Trelegy Ellipta and was referred to pulmonary rehab at his last appointment. Last FEV1 was 68% 2.18 L FEV1 FVC ratio 67% DLCO significantly reduced to 27%. Patient be maintained on his inhalers and is given steroids for his Covid pneumonia which could also up in the inflammatory response from his underlying lung disease the primary cryogenic transport driver of his acute respiratory failure hypoxia seems to be Covid pneumonia (3) Diabetes: Plan: With severe hyperglycemia here with glucose in the 300s secondary to corticosteroids initially, now improved with increased doses of insulin Have asked pharmacy to help manage his insulin regimen while inpatient Continue ADA diet Accu-Cheks (4) Elevated troponin: Plan: Patient has elevated troponin without acute current of injury seen on his EKG -He was markedly hypoxic and this is likely demand ischemia or type II GA Repeat troponin remains mildly elevated but not much increased from previous He has no chest pain -Continue aspirin and his beta-percy at this time plus continuing his statin for secondary disease prevention (5) Chronic diastolic (congestive) heart failure: Plan: Patient has a history of diastolic heart failure it appears to be with slight worsening on chest x-ray although could be Covid changes patient was given additional dose of diuretic in the ER restart home bumex now that renal function improves back to baseline (6) MARJORIE (acute kidney injury): Plan: Patient is with acute kidney injury on chronic kidney disease. He was given diuretics due to his pulmonary status will follow his renal function and involve nephrology if need be especially with his history of renal artery stenosis status post stenting Creatinine is stabilized at 1.6 which is not much above his baseline restart Bumex Renally dose medications Follow BMP (7) Hypertension: Plan: Patient has a history of renal artery stenting bilaterally by Dr. Pugh in 2020 with abdominal aortic aneurysm repair, and bilateral subclavian artery stenosis making accurate blood pressures difficult as per review of cardiology notes -Blood pressures are controlled Continues on metoprolol succinate 25 twice daily plus hydralazine 3 times daily. Amlodipine 10 at bedtime is held due to his blood pressure being slightly soft upon admission-restart today as BPs rising (8) Obesity (BMI 30.0-34.9): Plan: His morbid obesity places secondary risk for his Covid morbidity BMI is 30.4 (9) Status post placement of cardiac pacemaker: Plan: Placed for complete heart block in 03/2020 (10) Hypercholesterolemia: Plan: Continue statin and Zetia (11) Chronic kidney disease, stage III (moderate): Plan: Baseline creatinine 1.4-1.7 -Avoid nephrotoxins -renally dose meds when appropriate -follow BMP (12) CAD, multiple vessel: Plan: With a history of stent to the proximal to mid LAD and RCA in 07/2011 and stent to the mid circumflex with POBA at the bifurcation of OM 2 secondary to a small NSTEMI -Continue aspirin, Plavix, Zetia, Crestor, metoprolol (13) Hypothyroidism: Plan: Continue levothyroxine TSH normal in 05/2020 (14) DVT prophylaxis: Plan: Lovenox- 40 mg once daily due to renal function Plan: Disposition-continued stay in Covid unit on telemetry, but hopefully to home on Thu-Thursday as long as does not decompensate at the day #8-9 osmani Admission and Anticipated Discharge Date Admission Date: February 20, 2021 Subjective Pt feeling better today. Does drop POx to 80s with getting up to the BR on his 2 LNC but recovers fairly quickly. No other complaints, energy level improving. Tele with paced rhtyhm, rates 60-70s Review of Systems Review of Systems: All systems reviewed & are unremarkable except as noted in HPI & below Physical Exam Constitutional: WD/WN, vitals as above Eyes: + anicteric sclerae Neck: trachea midline, no thyromegaly Respiratory: normal respiratory effort; no cough Auscultation: lungs clear to auscultation bilaterally and + diminished lung sounds (Throughout) Cardiovascular: RRR, no murmur, no edema Chest (Breasts): Chest: normal inspection of chest Gastrointestinal (Abdomen): normal bowel sounds, soft, nontender, no hepatosplenomegaly Musculoskeletal: Extremities: extremities normal to inspection; no cyanosis and no clubbing Skin: no rashes, warm and dry Neurologic: moves all extremities and awake; no focal motor deficits Psychiatric: A+Ox3, euthymic affect Lymphatic: no lymphedema Results & Data Results & Data ([facility]) Vital Signs (Past 12 Hours) Vital Signs Temp Pulse Pulse Resp BP Pulse Ox Pulse Ox 02/24/21 12:03 69 18 92 02/24/21 11:30 36.6 C 62 20 147/79 H 92 02/24/21 09:00 93 02/24/21 08:00 67 02/24/21 07:18 36.6 C 66 20 154/76 H 94 02/24/21 06:52 60 18 93 02/24/21 05:06 36.6 C 63 18 145/93 H 93 Laboratory Results 02/24/21 06:45 02/24/21 06:45 PG Care Time/CCT Total # of Minutes Spent Total Time Spent with Patient: Total time spent is greater than 50% in coordination of care (as documented) at patient's floor/unit and/or counseling patient: Coding Level of Care Code 24945 Subseq Hosp Care Lvl 2 Diagnoses Pneumonia due to COVID-19 virus U07.1; J12.82 Chronic respiratory failure with hypoxia J96.11 Diabetes E11.22; N18.3; Z79.4 Diabetes mellitus type: type 2 Diabetes mellitus long-term insulin use: with long-term use Diabetes mellitus complication status: with kidney complications Diabetes mellitus complication detail: with chronic kidney disease Chronic kidney disease stage: stage 3 (moderate) Elevated troponin R77.8 Chronic diastolic (congestive) heart failure I50.32 MARJORIE (acute kidney injury) N17.9 Hypertension I10 Obesity (BMI 30.0-34.9) E66.9 Status post placement of cardiac pacemaker Z95.0 Hypercholesterolemia E78.00 Chronic kidney disease, stage III (moderate) N18.3 CAD, multiple vessel I25.10 Hypothyroidism E03.9 Hypothyroidism type: acquired DVT prophylaxis Z29.9 (1) Diabetes Diabetes mellitus type: type 2 Diabetes mellitus 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
[2021-02-24] MEDS ORDERED: ALBUTEROL HFA 8 GM INHALER INH PRN (16:25)
[2021-02-24] MEDS ORDERED: amLODIPine BESYLATE 5 MG TAB PO SCH (21:00)
[2021-02-24] MEDS: INSULIN GLARGINE SOLOSTAR 100 UNITS/ML 3 ML PEN SQ SCH (21:05)
[2021-02-25] MEDS: LEVOTHYROXINE SODIUM 25 MCG TABLET PO SCH (05:27)
[2021-02-25] MEDS: INSULIN ASPART 100 UNITS/ML VIAL SC SCH ×2 (08:45→13:06)
[2021-02-25 09:05] LABS: Alanine Aminotransferase 62 U/L (12-78); Albumin Level 2.9 gm/dl (3.4-5.0); Aspartate Aminotransferase 48 U/L (15-37); BUN Creatinine Ratio 38.4 (10-20); Blood Urea Nitrogen 57 mg/dl (7-18); C Reactive Protein < 0.29 mg/dl (0-0.29); Calcium 8.4 mg/dl (8.5-10.1); Carbon Dioxide 25 mmol/L (21-32); Chloride 108 mmol/L (98-107); Creatinine Clr Calc Pharmacy 45.4 ml/min; Est GFR (African American) 50.7 ml/min; Est GFR (Non-African American) 43.7 ml/min; Glucose 106 mg/dl (70-99); Potassium 4.1 mmol/L (3.5-5.1); Sodium 141 mmol/L (136-145)
[2021-02-25 09:08] LABS: Albumin Globulin Ratio 0.8 (0.9-2); Alkaline Phosphatase 76 U/L (45-117); Bilirubin,Total 0.4 mg/dl (0.2-1); Globulin 3.5 gm/dl (2.5-4.0); Total Protein 6.4 gm/dl (6.4-8.2)
[2021-02-25] MEDS: dexAMETHasone 6 MG in SYRINGE 0 ML IV SCH (09:10)
[2021-02-25] MEDS: ASPIRIN 81 MG ECTAB PO SCH (09:11)
[2021-02-25] MEDS: ENOXAPARIN INJ 40 MG/0.4 ML SYR SQ SCH (09:11)
[2021-02-25] MEDS: ALPRAZolam 0.5 MG TABLET PO SCH (09:11)
[2021-02-25] MEDS: CLOPIDOGREL BISULFATE 75 MG TAB PO SCH (09:12)
[2021-02-25] MEDS: UMECLIDINIUM/VILANTEROL 62.5/25MCG 7 PUFFS/INHALER INH SCH (09:13)
[2021-02-25] MEDS: hydrALAZINE TAB 50 MG TAB PO SCH ×2 (09:14→13:59)
[2021-02-25] MEDS: EZETIMIBE 10 MG TABLET PO SCH (09:14)
[2021-02-25] MEDS: METOPROLOL SUCC 25MG EXT REL TAB PO SCH (09:14)
[2021-02-25] MEDS: ROSUVASTATIN CALCIUM 5 MG TAB PO SCH (09:14)
[2021-02-25] MEDS: FLUTICASONE FUROATE 100MCG 14 PUFFS/INHALER INH SCH (09:14)
[2021-02-25] MEDS: INSULIN HUMAN NPH SC SCH (10:04)
[2021-02-25] MEDS: BUMETANIDE 1 MG TAB PO SCH (10:30)
--- NOTE | 2021-02-25 11:19 | Discharge Summary ---
Date of Service February 25, 2021 Admission HPI Per Admitting Provider 80-year-old male with underlying lung disease. He is vaccinated against COVID- 19 with pizer. The patient states that 2 days prior to admission he began having chills, a cough, some nausea, some body aches and shortness of breath. He has lost his taste and smell. The patient has not had any sick contacts. There has been no vomiting, no diarrhea, no abdominal or chest pain. He is concerned that he may have COVID-19. He is here with his family.He has chronic respiratory failure with hypoxia and typically wears 2 L of oxygen at home, however was 85% saturation on presentation, he has excalated oxygen needs and also eliot plus elevated troponin on presentation without ECG acute changes, he is paced. Principal Diagnosis COVID 19 pneumonia Acute respiratory failure on chronic respiratory failure Discharge Exam General: well developed, well nourished, elderly male, no acute distress, comfortable Neck: supple, trachea midline, normal thyroid Lungs: clear to auscultation bilaterally, normal respiratory effort, no accessory muscle use, no distress Heart: regular S1 and S2, no murmur, peripheral pulses normal, capillary refill normal, no edema Abdomen: soft, NT, ND, + BS, no hepatomegaly, normal to percussion Extremities: normal in appearance, no cyanosis, no petechiae, strength is 5/5 bilaterally Neuro: awake, cooperative, moves all extremities, no focal motor deficits, CN II-XII intact, sensation in extremities intact, normal speech Skin: warm, dry, no rash, normal turgor Psych: Awake, alert oriented x 3, euthymic affect Discharge Data Allergies Allergy/AdvReac Type Severity Reaction Status Date / Time No Known Allergies Allergy Verified 01/01/21 09:08 Consultations 02/20/21 11:23 ED Decision to Admit Stat Hospital Course (1) Pneumonia due to COVID-19 virus: Patient presents with acute respiratory failure hypoxia secondary to COVID-19 viral pneumonia. Symptoms of Covid started 2 days prior to admission. He is fully vaccinated. -Was requiring 6 L nasal cannula but now weaned back to his home O2 of 2 L at rest x 2 days POx does drop to 80s with minimal exertion in room 2 step on day of discharge, he needs 2L at rest and 3L on exertion, arranged for home oxygen -Completed Remdesivir x5-day course -Continue dexamethasone x10-day course, change to PO on discharge to finish 10 days -Continue on incentive spirometry and flutter valve continue Bumex for negative fluid balance, keep lungs dry Continue home Umeclidinium/Vilanterol (2) Chronic respiratory failure with hypoxia: Follows with pulmonology for his mixed restrictive obstructive lung disease -Typically takes as needed albuterol plus Trelegy Ellipta and was referred to pulmonary rehab at his last appointment. Last FEV1 was 68% 2.18 L FEV1 FVC ratio 67% DLCO significantly reduced to 27%. he is back to his baseline 2L at rest, needs 3L on exertion (3) Diabetes: With severe hyperglycemia here with glucose in the 300s secondary to corticosteroids initially, now improved with increased doses of insulin follow low carb diet only needs 2 more days of dexamethasone at home use Lantus and rapid acting insulin TID meals (4) Elevated troponin: Patient has elevated troponin without acute current of injury seen on his EKG -He was markedly hypoxic and this is likely demand ischemia or type II MD Repeat troponin remains mildly elevated but not much increased from previous He has no chest pain -Continue aspirin and his beta-percy at this time plus continuing his statin for secondary disease prevention (5) Chronic diastolic (congestive) heart failure: Patient has a history of diastolic heart failure it appears to be with slight worsening on chest x-ray although could be Covid changes patient was given additional dose of diuretic in the ER restart home bumex now that renal function improves back to baseline (6) ELIOT (acute kidney injury): Creatinine is stabilized at 1.6 which is not much above his baseline restarted Bumex, making urine, electrolytes stable (7) Hypertension: Patient has a history of renal artery stenting bilaterally by Dr. Pugh in 2020 with abdominal aortic aneurysm repair, and bilateral subclavian artery stenosis making accurate blood pressures difficult as per review of cardiology notes -Blood pressures are controlled Continues on metoprolol succinate 25 twice daily plus hydralazine 3 times daily. Amlodipine 10mg HS resumedd (8) Obesity (BMI 30.0-34.9): His morbid obesity places secondary risk for his Covid morbidity BMI is 30.4 (9) Status post placement of cardiac pacemaker: Placed for complete heart block in 03/2020 (10) Hypercholesterolemia: Continue statin and Zetia (11) Chronic kidney disease, stage III (moderate): Baseline creatinine 1.4-1.7 -Avoid nephrotoxins -renally dose meds when appropriate -follow BMP (12) CAD, multiple vessel: With a history of stent to the proximal to mid LAD and RCA in 07/2011 and stent to the mid circumflex with POBA at the bifurcation of OM 2 secondary to a small NSTEMI -Continue aspirin, Plavix, Zetia, Crestor, metoprolol (13) Hypothyroidism: Continue levothyroxine TSH normal in 05/2020 (14) DVT prophylaxis: Lovenox- 40 mg once daily due to renal function d/c to home Total Time Total Time Spent Total Time Spent (In Minutes): 33 minutes Discharge Plan Discharge Items Patient Disposition: Home - Self-Care Reason For Visit: COVID PNEUMONIA Discharge Diagnosis: COVID 19 pneumonia Acute hypoxic respiratory failure Condition on Discharge: Good Goals: stay well nourished, well hydrated complete course of dexamethasone wean back oxygen as tolerated Activity: Resume your previous activity Non-emergency contact: Primary Care Provider Call non-emergency contact if: you have any medication questions Follow-up/Referrals: Gene Calvo MD [Primary Care Provider] - (one week) Diet: Carb Consistent or DM2 and Heart Healthy Addtl Attending Provider Instructions: Medications: - DEXAMETHASONE: 6mg daily for 2 more days, start tomorrow morning COVID pneumonia, acute on chronic hypoxia test today shows you need 2L at rest and 3L on exertion continue to stay well nourished and well hydrated Diabetes: only need steroid for 2 more days, follow low carb diet, no sweets be sure to use your Lantus and rapid insulin three times a day with meals Pending Studies at Discharge: No Stand-Alone Forms: My PaeDae, Smoking Cessation Medications and DC Order Prescriptions: Continued amlodipine 10 mg tablet 10 mg PO HS Qty: 90 RF: 3 nitroglycerin [Nitrostat] 0.4 mg tablet, sublingual 0.4 mg Sublingual UD PRN (Reason: chest pain) Qty: 30 RF: 4 rosuvastatin 5 mg tablet 5 mg PO Q2D Qty: 90 RF: 3 ezetimibe 10 mg tablet 10 mg PO DAILY Qty: 90 RF: 3 levothyroxine 25 mcg tablet 25 mcg PO DAILY Qty: 90 RF: 3 insulin glargine 100 unit/mL (3 mL) insulin pen 26 unit subcut HS Qty: 15 RF: 3 metoprolol succinate 25 mg tablet extended release 24 hr 25 mg PO BID Qty: 180 RF: 3 alprazolam 0.5 mg tablet 0.5 mg PO DAILY Qty: 90 RF: 1 clopidogrel 75 mg tablet 75 mg PO DAILY Qty: 90 RF: 3 (DME) Comfort EZ Pen [place] 32 gauge x 5/16" needle See Rx Instructions .Route Qty: 360 RF: 3 Novolin R Regular U-100 Insuln 100 unit/mL solution 12 unit subcut TIDM RF: 0 bumetanide 1 mg tablet 0.5 mg PO DAILY Qty: 45 RF: 3 albuterol sulfate [Ventolin HFA] 90 mcg/actuation HFA aerosol inhaler 2 puff inhalation QID PRN (Reason: shortness of breath or wheezing) Qty: 54 RF: 3 Trelegy Ellipta 200-62.5-25 mcg blister with device 1 inh inhalation DAILY Qty: 60 RF: 5 (DME) Portable Oxygen Misc See Rx Instructions .MEDSUPPLY Qty: 1 RF: 0 (DME) FreeStyle Maritza 14 Day Sensor Kit See Rx Instructions .ROUTE .MEDSUPPLY Qty: 1 RF: 0 coenzyme Q10 [Co Q-10] 200 mg Capsule 200 mg PO DAILY RF: 0 aspirin 81 mg tablet,delayed release (DR/EC) 81 mg PO Q OTHER DAY RF: 0 hydralazine 50 mg tablet 50 mg PO TID RF: 0 Discharge Orders: Discharge Order (Routine); Ordered 02/25/21 Ordered By: Humphrey Sahu/Other Patient Handouts: A1C, Managing Type 2 Diabetes Admission Data Admit Date/Time: 02/20/21 11:43 Attending Provider: Humphrey Sanchez Admit Provider: Daniel Wilks Primary Care Provider: Gene Calvo Other Providers: Daniel Wilks Other Interventions: Discharge Summary Assessment (RN) Last Done: 02/25/21 15:08 Coding Level of Care Code D/C DAY MANAGEMENT >30 MINS Diagnoses Pneumonia due to COVID-19 virus U07.1; J12.82 Chronic respiratory failure with hypoxia J96.11 Diabetes E11.22; N18.3; Z79.4 Chronic kidney disease stage: stage 3 (moderate) Diabetes mellitus complication detail: with chronic kidney disease Diabetes mellitus complication status: with kidney complications Diabetes mellitus shelter insulin use: with terminal carman use Diabetes mellitus type: type 2 Elevated troponin R77.8 Chronic diastolic (congestive) heart failure I50.32 ELIOT (acute kidney injury) N17.9 Hypertension I10 Obesity (BMI 30.0-34.9) E66.9 Status post placement of cardiac pacemaker Z95.0 Hypercholesterolemia E78.00 Chronic kidney disease, stage III (moderate) N18.3 CAD, multiple vessel I25.10 Hypothyroidism E03.9 Hypothyroidism type: acquired DVT prophylaxis Z29.9
[2021-02-25] MEDS ORDERED: INSULIN GLARGINE SOLOSTAR 100 UNITS/ML 3 ML PEN SQ SCH ×2 (21:00)
== END 2021-02-25 16:08 | disposition home or self-care (01) | DRG 177 ==
LOC: ED 08:25 → 2S 11:43 → SUATTDRO 11:43 → 2S 02-21 00:01

== ENCOUNTER 2022-07-05 11:17 | Inpatient (IN) ==
[2022-07-05] MEDS ORDERED: ACETAMINOPHEN 500 MG TAB PO STA (11:40)
--- NOTE | 2022-07-05 11:44 | Emergency Department Note ---
Impression & Plan Respiratory failure with hypoxia, Pulmonary edema, Acute hypotension, Elevated troponin ED Provider Note Name: KD AGARWAL Age: 82 Sex: M Arrives Via: Walk-In Informant: Patient, family ED Provider: Gurdeep Calixto MD Chief Complaint: Shortness of breath/illness Impression: As per impressions above Medical Decision Makin-year-old gentleman with a history of hypertension, diabetes, dyslipidemia amongst others who is on Eliquis arrives for evaluation of worsening shortness of breath, weakness and fatigue, which has been ongoing since last evening. He was ambulating with severe shortness of breath. Arrives for evaluation and moderate distress ill-appearing and hypoxic. Septic work-up initiated. While he has a chest x-ray which shows a pulmonary edema I suspect he has an underlying infectious etiology. His blood pressure dropped and he was given IV fluids with improvement of pressure. His lactic acid is 2.0. His troponin is elevated the patient is adamant there is no chest pain. I suspect this may be more hypoxic related. We will hold off on anticoagulation as without chest pain and will defer to hospitalist for repeat testing. He is already anticoagulated this PE is unlikely. EKG is without acute ischemia. Given my concerns for underlying infectious etiology he was empirically given antibiotics in the setting of a bio fire being negative for PE at this time. Prior Medical Record and Triage/Nursing Notes reviewed by Me External chart review by me Differentials:Pneumonia, COPD, CHF, pneumothorax, ACS, electrolyte imbalance, sepsis/septic shock, multiple other pathologies considered Patient was given 1 L normal saline bolus IV rather than a 30/kg IV fluid bolus given his history of congestive heart failure, renal failure and fluid overload. Repeat volume status exam at 1:20 PM patient's heart rate is down to 87 he is breathing more comfortably. His blood pressure is 90/63 with a MAP of greater than 65. Vital Signs: reviewed and remarkable for hypoxia Interventions: Normal saline bolus 1 L IV, Tylenol p.o., cefepime 2 g IV Labs:Reviewed and remarkable for elevated troponin Imagin view chest x-ray interpreted by me bilateral pulmonary edema findings though concerning for multifocal pneumonia as well EKG:As per my interpretation. Indication shortness of breath atrial sensed ventricular paced tachycardia at 110 bpm QTc of 484. There is no ectopy nor ischemic findings. When compared to EKG of February 20, 2021 rate has increased but morphology similar Cardiac/Tele Monitoring: Cardiac Monitoring: An Order was placed for continuous cardiac monitoring. The monitor shows a rate of 110 with a ventricular paced rhythm. Consults:Dr. [facility] hospital service Plan: Disposition:Hospitalization. Condition: Fair History of Present Illness:82-year-old gentleman arrives for evaluation illness. He notes feeling ill last evening. Took some Tylenol yesterday was feeling better. This morning worsening shortness of breath and was unable to ambulate at all severe shortness of breath. States mild cough which is nonproductive. States diffuse body aches chills and fever at home. No nausea, vomiting, abdominal pain, chest pain, syncope, headache, urinary/bowel symptoms, leg swelling beyond baseline, rashes or other concerning signs or symptoms. Patient has a long history of COPD and CHF is on chronic oxygen 3 L at home but this was not helping his breathing. No medications prior to arrival other than Tylenol last night Past History:See Below Home Medications:See Below Allergies:NKDA Vitals:Blood Pressure: 169/71, Pulse 112, RR 22, T 37.5C, O2 86% on 3L NC Physical Exam: GENERAL: Patient is ill appearing and in moderate distress. Tremulous mild rigors EYES: No scleral icterus, unremarkable pupils. ENT: Mucous membranes dry NECK: No masses appreciated, nomeningismus, trachea is midline. RESPIRATORY: Dyspnea with tachypnea and diffuse mild crackles CARDIOVASCULAR: Tachycardic GASTROINTESTINAL: Abdomen soft, non-tender, no peritonitis. EXTREMITIES: Normal motion all extremities, no cyanosis, mild lower leg edema. NEUROLOGIC: Alert and oriented, no focal neurologic deficit appreciated t. SKIN: No rash, no jaundice, no diaphoresis. PSYCH: Appropriate GCS: 15 ED Course: Times/Reassessments: Patient is vastly improved with initial bolus of fluid and Tylenol. Heart rate has come down blood pressure did drop briefly as fluids were started but came back up nicely. Patient is breathing comfortably looks much better. Agreeable to hospitalization Critical Care: I have personally spent 35 minutes of critical care time in the direct management of this patient. Hypoxic respiratory failure with hypotension requiring fluid resuscitation and sepsis management. This was a life/limb threatening event. This 35 minutes is in excess of all separately billable p rocedures. Gurdeep Calixto MD Past Med/Surg History Medical History MARJORIE (acute kidney injury) Anemia Aneurysm of abdominal aorta Benign prostatic hyperplasia with elevated prostate specific antigen (PSA) CAD, multiple vessel Carotid artery stenosis, asymptomatic CHF (congestive heart failure) Chronic kidney disease Chronic kidney disease, stage III (moderate) Chronic obstructive pulmonary disease Community acquired pneumonia Diabetes mellitus, type 2 Diabetic nephropathy Diverticulitis of colon Edema Elevated PSA Elevated troponin Enteritis Herpes zoster Hypercholesterolemia Hyperkalemia Hyperlipidemia Hypertension Hypoxia Male erectile disorder of organic origin Myocardial Infarction Panic disorder without agoraphobia Peripheral vascular disease Pre-operative exam Proteinuria Pulmonary nodule SOB (shortness of breath) Steroid-induced hyperglycemia Tobacco use disorder Uncontrolled type 2 diabetes mellitus Surgical History H/O aortic aneurysm repair History of partial colectomy Stented coronary artery Family History Mother Coronary heart disease COPD (chronic obstructive pulmonary disease) Father Diabetes Brother Unknown family medical history Other Diabetes mellitus type 1 Heart disease Denies family history of Ovarian cancer Prostate cancer Myocardial infarction Breast cancer Colorectal cancer Cancer Social History Smoking Status: Never smoker Tobacco Type: Cigarettes Age Started Using Tobacco: 15; Age Quit Using Tobacco: 70; packs per day: 1; Second Hand Exposure: No; Hx Alcohol Use: No Hx Substance Use: No Preferred Language: Malay Communication Ability: Effective Visual Impairment: No Limitations Hearing Ability: Normal Digital Traffic Coordinator Required: No Beliefs That Will Affect Care: None marital status: Current Living Situation: Spouse current occupational status: retired current occupation: Retired from career with [employer] Other Information That Helps Us Care for You: No Feels Safe at Home: Yes Safety Concerns: Feels Safe At This Time Childhood Exposure to Second-Hand Smoke: Yes caffeine: Yes Dental Care, Regularly: No Physical Activity Frequency: Does not Exercise Seatbelt Use: always Sunscreen Use: No Assistive Devices: Denture - Upper, Glasses and Oxygen - Continuous Allergies Allergies Allergy/AdvReac Type Severity Reaction Status Date / Time No Known Allergies Allergy Verified 06/09/22 09:40 Home Meds Home Medications Medication Instructions Recorded Confirmed aspirin 81 mg tablet,delayed 81 mg PO Q OTHER DAY 05/23/18 07/05/22 release insulin regular human 100 unit/mL 12 unit subcut TIDM 02/13/20 07/05/22 injection solution (Novolin R Regular U-100 Insulin) apixaban 2.5 mg tablet (Eliquis) 2.5 mg PO BID 05/13/21 07/05/22 hydralazine 50 mg tablet 25 mg PO BID 05/07/22 07/05/22 bumetanide 0.5 mg tablet 1 mg PO DAILY 07/05/22 07/05/22 Previous Rx's Medication Instructions Recorded nitroglycerin 0.4 mg sublingual 0.4 mg sublingual UD PRN chest 03/28/20 tablet (Nitrostat) pain #30 Tabs flash glucose sensor (FreeStyle #1 ea 06/18/20 Maritza 14 Day Sensor kit) Portable Oxygen #1 ea 11/12/20 rosuvastatin 5 mg tablet 5 mg PO Q2D #90 tabs 05/27/21 ezetimibe 10 mg tablet 10 mg PO DAILY #90 tabs 08/20/21 metoprolol succinate 25 mg 25 mg PO BID #180 tabs 12/17/21 tablet,extended release 24 hr alprazolam 0.5 mg tablet 0.5 mg PO DAILY #90 tabs 01/24/22 lisinopril 5 mg tablet 5 mg PO DAILY #90 tabs 02/03/22 pen needle, diabetic 32 gauge x #360 ea 02/26/2208/19" (Comfort EZ Pen [place]) amlodipine 10 mg tablet 10 mg PO HS #90 tabs 04/14/22 albuterol sulfate 90 mcg/actuation 2 puff inhalation QID PRN 05/08/22 aerosol inhaler (Ventolin HFA) shortness of breath or wheezing #54 grams fluticasone fur. 200 mcg-umeclid 1 inh inhalation DAILY #3 Inhalers 05/15/22 62.5 mcg-vilant 25 mcg inhalat.powder (Trelegy Ellipta) pen needle, diabetic 32 gauge x #270 ea 05/21/22" (BD Ultra-Fine [place] Pen Needle) levothyroxine 50 mcg tablet 50 mcg PO DAILY #90 tabs 05/27/22 insulin glargine 100 unit/mL (3 18 unit (0.18 mL) subcut QPM #15 06/10/22 mL) subcutaneous pen (Lantus syringes Solostar U-100 Insulin) Results & Data (ED) Vital Signs Vital Signs - 24 hr 07/05/22 11:21 07/05/22 12:25 07/05/22 12:15 Temperature 37.5 C Temperature Source Temporal Artery Scan Pulse Rate 112 H 103 H Pulse Rate [Apical] 103 H Pulse Rhythm [Apical] Respiratory Rate 22 28 H Respiratory Effort / Characteristics Short of Breath Respiratory Pattern Tachypnea Blood Pressure 169/71 H Blood Pressure [Right Arm] 103/74 Blood Pressure Mean 103 Blood Pressure Mean [Right Arm] 83 Blood Pressure Position Sitting Blood Pressure Position [Right Arm] Pulse Oximetry 86 L 92 93 Oxygen Delivery Method Nasal Cannula Nasal Cannula Nasal Cannula Oxygen Flow Rate 3 6 6 Sepsis Recent Fever Within 48 Hours Yes Sepsis New/Unexplained Change in Mental Status No Sepsis Action Taken by Nursing No Action Required 07/05/22 12:15 07/05/22 12:23 07/05/22 12:42 Temperature 37.6 C H Temperature Source Oral Pulse Rate 94 H Pulse Rate [Apical] 103 H Pulse Rhythm [Apical] Regular Respiratory Rate 28 H Respiratory Effort / Characteristics Short of Breath Respiratory Pattern Tachypnea Blood Pressure Blood Pressure [Right Arm] 103/74 Blood Pressure Mean Blood Pressure Mean [Right Arm] 83 Blood Pressure Position Blood Pressure Position [Right Arm] Lying Pulse Oximetry 92 Oxygen Delivery Method Nasal Cannula Oxygen Flow Rate 6 Sepsis Recent Fever Within 48 Hours Sepsis New/Unexplained Change in Mental Status Sepsis Action Taken by Nursing 07/05/22 14:06 Temperature Temperature Source Pulse Rate Pulse Rate [Apical] 78 Pulse Rhythm [Apical] Respiratory Rate 26 H Respiratory Effort / Characteristics Short of Breath Respiratory Pattern Tachypnea Blood Pressure Blood Pressure [Right Arm] 107/59 L Blood Pressure Mean Blood Pressure Mean [Right Arm] 75 Blood Pressure Position Blood Pressure Position [Right Arm] Lying Pulse Oximetry 91 Oxygen Delivery Method Nasal Cannula Oxygen Flow Rate 6 Sepsis Recent Fever Within 48 Hours Sepsis New/Unexplained Change in Mental Status Sepsis Action Taken by Nursing Laboratory Data 07/05/22 12:03 07/05/22 12:03 Lab Results 07/05/22 07/05/22 07/05/22 Range/Units 12:03 12:03 12:03 WBC 11.27 H (4.8-10.8) K/ul RBC 4.29 L (4.70-6.10) M/uL Hgb 13.6 L (14.0-18.0) g/dl Hct 40.2 L (42.0-52.0) % MCV 93.7 (80.0-100.0) fL MCH 31.7 (25.0-34.0) pg MCHC 33.8 (32.0-36.0) g/dL RDW Std Deviation 47.7 H (36.4-46.3) fL RDW Coeff of Pj 13.9 (11.5-14.5) % Plt Count 229 (130-400) K/uL MPV 10.1 (9.4-12.4) fL Immature Gran % (Auto) 0.5 % Neut % (Auto) 75.3 % Lymph % (Auto) 12.4 % Morrill % (Auto) 10.6 % Eos % (Auto) 0.2 % Baso % (Auto) 1.0 % Neut # (Auto) 8.48 H (1.40-6.50) K/uL Lymph # (Auto) 1.40 (1.2-3.4) K/uL Morrill # (Auto) 1.20 H (0.11-0.59) K/uL Eos # (Auto) 0.02 (0-0.50) K/uL Baso # (Auto) 0.11 (0-0.2) K/uL Immature Gran # (Auto) 0.06 (0.01-0.20) K/uL PT 11.4 (9.0-12.0) Seconds INR 1.1 (0.9-1.1) Sodium 134 L (136-145) mmol/L Potassium 5.0 (3.5-5.1) mmol/L Chloride 103 (98-107) mmol/L Carbon Dioxide 22 (21-32) mmol/L Anion Gap 9 (3-11) BUN 49 H (6-23) mg/dl Creatinine 2.22 H (0.6-1.4) mg/dl Est Cr Clr Drug Dosing 29.7 ml/min Est GFR ( Amer) 30.6 ml/min Est GFR (Non-Af Amer) 26.4 ml/min BUN/Creatinine Ratio 22.1 H (10-20) Glucose 230 H (70-99(Fasting)) mg/dl Lactate (0.4-2.0) mmol/L Calcium 9.0 (8.6-10.3) mg/dl Magnesium 1.6 L (1.7-2.4) mg/dl Total Bilirubin 0.9 (0.2-1.0) mg/dl Direct Bilirubin 0.2 (0-0.2) mg/dl AST 17 (13-39) U/L ALT 10 (7-52) U/L Alkaline Phosphatase 76 (34-104) U/L Troponin I High Sens 74.7 H* (0-20) pg/ml Total Protein 7.2 (6.0-8.3) gm/dl Albumin 3.9 (3.4-5.0) gm/dl Procalcitonin (0-0.5) ng/ml Urine Color Urine Appearance (Clear) Urine pH (4.5-7.5) Ur Specific [place] (1.000-1.030) Urine Protein (Negative) Urine Glucose (UA) (Negative) Urine Ketones (Negative) Urine Blood (Negative) Urine Nitrite (Negative) Urine Bilirubin (Negative) Urine Urobilinogen (Negative) Ur Leukocyte Esterase (Negative) Urine WBC (Auto) (0-5) /hpf Urine RBC (Auto) (0-4) /hpf U Hyaline Cast (Auto) (0-5) /lpf U Epithel Cells (Auto) (0-5) /lpf Urine Bacteria (Auto) (Negative) Nasal Screen MRSA (PCR) (Negative) Adenovirus (PCR) (NotDetected) B. pertussis DNA (PCR) (NotDetected) B.parapertussis DNA PCR (NotDetected) C. pneumoniae DNA (PCR) (NotDetected) Coronavirus OC43 (PCR) (NotDetected) Coronavirus HKU1 (PCR) (NotDetected) Coronavirus 229E (PCR) (NotDetected) SARS-CoV-2 (PCR) (NotDetected) Coronavirus NL63 (PCR) (NotDetected) Human Metapneumovir PCR (NotDetected) Influenza Type A (PCR) (NotDetected) Influenza Type B (PCR) (NotDetected) M. pneumoniae (PCR) (NotDetected) Parainfluenza 1 (PCR) (NotDetected) Parainfluenza 2 (PCR) (NotDetected) Parainfluenza 3 (PCR) (NotDetected) Parainfluenza 4 (PCR) (NotDetected) RSV (PCR) (NotDetected) Entero/Rhino (PCR) (NotDetected) 07/05/22 07/05/22 07/05/22 Range/Units 12:03 12:03 12:03 WBC (4.8-10.8) K/ul RBC (4.70-6.10) M/uL Hgb (14.0-18.0) g/dl Hct (42.0-52.0) % MCV (80.0-100.0) fL MCH (25.0-34.0) pg MCHC (32.0-36.0) g/dL RDW Std Deviation (36.4-46.3) fL RDW Coeff of Pj (11.5-14.5) % Plt Count (130-400) K/uL MPV (9.4-12.4) fL Immature Gran % (Auto) % Neut % (Auto) % Lymph % (Auto) % [place] % (Auto) % Eos % (Auto) % Baso % (Auto) % Neut # (Auto) (1.40-6.50) K/uL Lymph # (Auto) (1.2-3.4) K/uL [place] # (Auto) (0.11-0.59) K/uL Eos # (Auto) (0-0.50) K/uL Baso # (Auto) (0-0.2) K/uL Immature Gran # (Auto) (0.01-0.20) K/uL PT (9.0-12.0) Seconds INR (0.9-1.1) Sodium (136-145) mmol/L Potassium (3.5-5.1) mmol/L Chloride (98-107) mmol/L Carbon Dioxide (21-32) mmol/L Anion Gap (3-11) BUN (6-23) mg/dl Creatinine (0.6-1.4) mg/dl Est Cr Clr Drug Dosing ml/min Est GFR ( Amer) ml/min Est GFR (Non-Af Amer) ml/min BUN/Creatinine Ratio (10-20) Glucose (70-99(Fasting)) mg/dl Lactate 2.0 (0.4-2.0) mmol/L Calcium (8.6-10.3) mg/dl Magnesium (1.7-2.4) mg/dl Total Bilirubin (0.2-1.0) mg/dl Direct Bilirubin (0-0.2) mg/dl AST (13-39) U/L ALT (7-52) U/L Alkaline Phosphatase (34-104) U/L Troponin I High Sens (0-20) pg/ml Total Protein (6.0-8.3) gm/dl Albumin (3.4-5.0) gm/dl Procalcitonin 0.05 (0-0.5) ng/ml Urine Color Urine Appearance (Clear) Urine pH (4.5-7.5) Ur Specific [place] (1.000-1.030) Urine Protein (Negative) Urine Glucose (UA) (Negative) Urine Ketones (Negative) Urine Blood (Negative) Urine Nitrite (Negative) Urine Bilirubin (Negative) Urine Urobilinogen (Negative) Ur Leukocyte Esterase (Negative) Urine WBC (Auto) (0-5) /hpf Urine RBC (Auto) (0-4) /hpf U Hyaline Cast (Auto) (0-5) /lpf U Epithel Cells (Auto) (0-5) /lpf Urine Bacteria (Auto) (Negative) Nasal Screen MRSA (PCR) (Negative) Adenovirus (PCR) Not Detected (NotDetected) B. pertussis DNA (PCR) Not Detected (NotDetected) B.parapertussis DNA PCR Not Detected (NotDetected) C. pneumoniae DNA (PCR) Not Detected (NotDetected) Coronavirus OC43 (PCR) Not Detected (NotDetected) Coronavirus HKU1 (PCR) Not Detected (NotDetected) Coronavirus 229E (PCR) Not Detected (NotDetected) SARS-CoV-2 (PCR) Not Detected (NotDetected) Coronavirus NL63 (PCR) Not Detected (NotDetected) Human Metapneumovir PCR Not Detected (NotDetected) Influenza Type A (PCR) Not Detected (NotDetected) Influenza Type B (PCR) Not Detected (NotDetected) M. pneumoniae (PCR) Not Detected (NotDetected) Parainfluenza 1 (PCR) Not Detected (NotDetected) Parainfluenza 2 (PCR) Not Detected (NotDetected) Parainfluenza 3 (PCR) Not Detected (NotDetected) Parainfluenza 4 (PCR) Not Detected (NotDetected) RSV (PCR) Not Detected (NotDetected) Entero/Rhino (PCR) Not Detected (NotDetected) 07/05/22 07/05/22 Range/Units 12:40 13:06 WBC (4.8-10.8) K/ul RBC (4.70-6.10) M/uL Hgb (14.0-18.0) g/dl Hct (42.0-52.0) % MCV (80.0-100.0) fL MCH (25.0-34.0) pg MCHC (32.0-36.0) g/dL RDW Std Deviation (36.4-46.3) fL RDW Coeff of Pj (11.5-14.5) % Plt Count (130-400) K/uL MPV (9.4-12.4) fL Immature Gran % (Auto) % Neut % (Auto) % Lymph % (Auto) % [place] % (Auto) % Eos % (Auto) % Baso % (Auto) % Neut # (Auto) (1.40-6.50) K/uL Lymph # (Auto) (1.2-3.4) K/uL [place] # (Auto) (0.11-0.59) K/uL Eos # (Auto) (0-0.50) K/uL Baso # (Auto) (0-0.2) K/uL Immature Gran # (Auto) (0.01-0.20) K/uL PT (9.0-12.0) Seconds INR (0.9-1.1) Sodium (136-145) mmol/L Potassium (3.5-5.1) mmol/L Chloride (98-107) mmol/L Carbon Dioxide (21-32) mmol/L Anion Gap (3-11) BUN (6-23) mg/dl Creatinine (0.6-1.4) mg/dl Est Cr Clr Drug Dosing ml/min Est GFR ( Amer) ml/min Est GFR (Non-Af Amer) ml/min BUN/Creatinine Ratio (10-20) Glucose (70-99(Fasting)) mg/dl Lactate (0.4-2.0) mmol/L Calcium (8.6-10.3) mg/dl Magnesium (1.7-2.4) mg/dl Total Bilirubin (0.2-1.0) mg/dl Direct Bilirubin (0-0.2) mg/dl AST (13-39) U/L ALT (7-52) U/L Alkaline Phosphatase (34-104) U/L Troponin I High Sens (0-20) pg/ml Total Protein (6.0-8.3) gm/dl Albumin (3.4-5.0) gm/dl Procalcitonin (0-0.5) ng/ml Urine Color Yellow Urine Appearance Clear (Clear) Urine pH 5.0 (4.5-7.5) Ur Specific [place] 1.011 (1.000-1.030) Urine Protein 2+ H (Negative) Urine Glucose (UA) Negative (Negative) Urine Ketones Negative (Negative) Urine Blood Negative (Negative) Urine Nitrite Negative (Negative) Urine Bilirubin Negative (Negative) Urine Urobilinogen Negative (Negative) Ur Leukocyte Esterase Negative (Negative) Urine WBC (Auto) 0 (0-5) /hpf Urine RBC (Auto) 0-4 (0-4) /hpf U Hyaline Cast (Auto) 1-5 (0-5) /lpf U Epithel Cells (Auto) 0-5 (0-5) /lpf Urine Bacteria (Auto) Negative (Negative) Nasal Screen MRSA (PCR) Negative (Negative) Adenovirus (PCR) (NotDetected) B. pertussis DNA (PCR) (NotDetected) B.parapertussis DNA PCR (NotDetected) C. pneumoniae DNA (PCR) (NotDetected) Coronavirus OC43 (PCR) (NotDetected) Coronavirus HKU1 (PCR) (NotDetected) Coronavirus 229E (PCR) (NotDetected) SARS-CoV-2 (PCR) (NotDetected) Coronavirus NL63 (PCR) (NotDetected) Human Metapneumovir PCR (NotDetected) Influenza Type A (PCR) (NotDetected) Influenza Type B (PCR) (NotDetected) M. pneumoniae (PCR) (NotDetected) Parainfluenza 1 (PCR) (NotDetected) Parainfluenza 2 (PCR) (NotDetected) Parainfluenza 3 (PCR) (NotDetected) Parainfluenza 4 (PCR) (NotDetected) RSV (PCR) (NotDetected) Entero/Rhino (PCR) (NotDetected) Administered Medications Aspirin (Aspirin 81 Mg Ectab) 81 mg PO Q2D@0900 ERICKA Stop: 08/04/22 16:26 Last Admin: 07/05/22 16:55 Dose: Not Given Documented By: DANY Insulin Aspart (Insulin Aspart Per Unit Charge) 0 units SC ACHS ERICKA Stop: 08/04/22 16:29 Last Admin: 07/05/22 18:04 Dose: 5 units Documented By: DANY Co-signed By: DMB Rosuvastatin Calcium (Rosuvastatin Calcium 5 Mg Tab) 5 mg PO Q2D@1700 [facility] Stop: 08/04/22 16:59 Last Admin: 07/05/22 16:58 Dose: Not Given Documented By: DANY Discontinued Medications Acetaminophen (Acetaminophen 500 Mg Tab) 1,000 mg PO NOW STA Stop: 07/05/22 11:41 Last Admin: 07/05/22 11:53 Dose: 1,000 mg Documented By: STEVEN Sodium Chloride (Nss 1000ml) 1,000 mls @ 999 mls/hr IV .Q1H1M ERICKA Stop: 07/05/22 12:45 Last Infusion: 07/05/22 14:23 Dose: 0 mls/hr Documented By: Admin: 07/05/22 12:10 Dose: 999 mls/hr Documented By: STEVEN Cefepime HCl (Maxipime) 2,000 mg in 20 mls @ 5 mls/min IV NOW STA Stop: 07/05/22 13:04 Last Admin: 07/05/22 13:06 Dose: 5 mls/min Documented By: ANKUR Imaging Data Radiologist's Impression: Chest X-Ray 07/05/22 11:39 XR chest 1V portable CLINICAL HISTORY: Sepsis TECHNIQUE: Single frontal radiograph of the chest was obtained. Comparison: Comparison is made to chest radiograph 07/31/2021 FINDINGS: Dual lead pacemaker is seen. Cardiomegaly is noted. The aortic arch is calcified. There is prominence and cephalization of the vasculature with Juany B lines seen. Faint airspace opacities in the lower lungs cannot be excluded. IMPRESSION: Moderate pulmonary edema. Cannot exclude bibasilar pneumonia/ aspiration. ACT 112: Negative or not required by law. Electronically signed by: Humphrey Garcia M.D. 07/05/2022 12:14 PM Discharge Plan Visit Data Chief Complaint: Dizziness Stated Complaint: DIZZINESS, CONGESTION, FEVER ED Provider: Gurdeep Calixto Discharge Problem: Respiratory failure with hypoxia, Pulmonary edema, Acute hypotension, Elevated troponin Patient Disposition: Admitted As Inpatient Discharge Instructions Interventions: ED Discharge Assessment Last Done: 07/05/22 16:20 Respiratory failure with hypoxia Qualifiers: Chronicity: acute Qualified Code(s): J96.01 - Acute respiratory failure with hypoxia Pulmonary edema Qualifiers: Chronicity: acute Qualified Code(s): J81.0 - Acute pulmonary edema
[2022-07-05] MEDS ORDERED: SODIUM CHLORIDE 0.9% 1000ML 1,000 ML IV SCH (11:45)
--- NOTE | 2022-07-05 12:16 | XRay Report ---
XR chest 1V portable CLINICAL HISTORY: Sepsis TECHNIQUE: Single frontal radiograph of the chest was obtained. Comparison: Comparison is made to chest radiograph 07/31/2021 FINDINGS: Dual lead pacemaker is seen. Cardiomegaly is noted. The aortic arch is calcified. There is prominence and cephalization of the vasculature with Juany B lines seen. Faint airspace opacities in the lower lungs cannot be excluded. IMPRESSION: Moderate pulmonary edema. Cannot exclude bibasilar pneumonia/ aspiration. ACT 112: Negative or not required by law. Electronically signed by: Humphrey Gracia M.D. 07/05/2022 12:14 PM
[2022-07-05 12:26] LABS: Basophils # (auto) 0.11 K/uL (0-0.2); Eosinophils # (auto) 0.02 K/uL (0-0.50); Eosinophils % (auto) 0.2 %; Hematocrit (blood only) 40.2 % (42.0-52.0); Hemoglobin 13.6 g/dl (14.0-18.0); Immature Granulocytes # (auto) 0.06 K/uL (0.01-0.20); Immature Granulocytes % (auto) 0.5 %; Lymphocytes % (auto) 12.4 %; Mean Corpuscular Hemoglobin 31.7 pg (25.0-34.0); Mean Corpuscular Hgb Conc 33.8 g/dL (32.0-36.0); Mean Corpuscular Volume 93.7 fL (80.0-100.0); Mean Platelet Volume 10.1 fL (9.4-12.4); Monocytes % (auto) 10.6 %; Neutrophils # (auto) 8.48 K/uL (1.40-6.50); Neutrophils % (auto) 75.3 %; Platelet Count 229 K/uL (130-400); RDW Coefficient of Variation 13.9 % (11.5-14.5); RDW Standard Deviation 47.7 fL (36.4-46.3); Red Blood Count 4.29 M/uL (4.70-6.10); White Blood Count 11.27 K/ul (4.8-10.8)
[2022-07-05 12:39] LABS: Albumin Level 3.9 gm/dl (3.4-5.0); BUN Creatinine Ratio 22.1 (10-20); Bilirubin Direct 0.2 mg/dl (0-0.2); Bilirubin,Total 0.9 mg/dl (0.2-1.0); Creatinine Clr Calc Pharmacy 29.7 ml/min; Est GFR (African American) 30.6 ml/min; Est GFR (Non-African American) 26.4 ml/min; Magnesium 1.6 mg/dl (1.7-2.4); Total Protein 7.2 gm/dl (6.0-8.3)
[2022-07-05 12:54] LABS: Troponin I High Sensitivity 74.7 pg/ml (0-20)
[2022-07-05] MEDS ORDERED: CEFEPIME 2,000 MG/20 ML VIAL IV STA (13:01)
[2022-07-05 13:03] LABS: INR 1.1 (0.9-1.1); Prothrombin Time 11.4 Seconds (9.0-12.0)
[2022-07-05 13:07] LABS: Adenovirus PCR Not Detected (NotDetected); Bordetella parapertussis PCR Not Detected (NotDetected); Bordetella pertussis PCR Not Detected (NotDetected); Chlamydia pneumoniae PCR Not Detected (NotDetected); Coronavirus 229E PCR Not Detected (NotDetected); Coronavirus CoV-2 (COVID19)PCR Not Detected (NotDetected); Coronavirus HKU1 PCR Not Detected (NotDetected); Coronavirus NL63 PCR Not Detected (NotDetected); Coronavirus OC43PCR Not Detected (NotDetected); Human Metapneumovirus PCR Not Detected (NotDetected); Influenza A PCR Not Detected (NotDetected); Influenza B PCR Not Detected (NotDetected); Mycoplasma pneumoniae PCR Not Detected (NotDetected); Parainfluenza Virus 1 PCR Not Detected (NotDetected); Parainfluenza Virus 2 PCR Not Detected (NotDetected); Parainfluenza Virus 3 PCR Not Detected (NotDetected); Parainfluenza Virus 4 PCR Not Detected (NotDetected); Respiratory Syncytial VirusPCR Not Detected (NotDetected); Rhinovirus/Enterovirus PCR Not Detected (NotDetected)
[2022-07-05 13:09] LABS: Appearance Urine Clear (Clear); Bacteria Urine Automated Negative (Negative); Bilirubin Urine Negative (Negative); Blood Urine Negative (Negative); Color Urine Yellow; Epithelial Cell Urine Auto 0-5 /lpf (0-5); Glucose Urine UA Negative (Negative); Ketones Urine Negative (Negative); Leukocyte Esterase Urine Negative (Negative); Nitrite Urine Negative (Negative); Protein Urine 2+ (Negative); RBC Urine Automated 0-4 /hpf (0-4); Specific Gravity Urine 1.011 (1.000-1.030); Urobilinogen Urine Negative (Negative); WBC Urine Automated 0 /hpf (0-5)
--- NOTE | 2022-07-05 13:57 | History & Physical Report ---
Date of Service July 05, 2022 Assessment & Plan (1) Shortness of breath: Plan: Suspect community-acquired pneumonia Several days of fever, increased shortness of breath, cough, sputum production Febrile up to 100.4 at home, mild leukocytosis, BioFire is negative. Pro-Eleazar negative CXR with evidence of volume overload, basal alfonso may be with pneumonia Given clinical progression and symptoms will treat for community-acquired pneumonia, continue cefepime Sputum cultures, blood cultures pending Patient initially hypotensive, improved with fluid bolus. 30 cc/kg deferred in the setting of history of heart failure. Rebolus as needed, follow for signs of volume overload. Per patient his legs are actually dry and much better than normal (2) Diabetes: Plan: Basal bolus SSI Goal BSG [id number] Weight-based parameters entered Type II DM diet (3) Hypothyroidism: Plan: Continue home Synthroid (4) CAD, multiple vessel: Plan: Continue aspirin, rosuvastatin Metoprolol, lisinopril, hydralazine, amlodipine, Bumex temporarily held in the setting of acute hypotension Blood pressure permitting resume metoprolol first. May resume other antihypertensives pressure permitting, and Bumex once no longer hypovolemic Troponin is mildly elevated, patient had an episode of chest pain with exertion that resolved. Suspect demand ischemia in the setting of pneumonia, troponins trended, echo for wall motion change pending (5) Third degree heart block: Plan: Pacer in place (6) COPD exacerbation: Plan: No wheezing on admitting exam Fever, chills, cough or suspicious for pneumonia In absence of wheezing steroids deferred May continue incentive spirometry, flutter Plan DVT prophylaxis: On Eliquis Diet: Heart healthy, DM 2 Disposition: PCU CODE STATUS: Full code History of Present Illness Primary Care Provider: Gene Calvo MD Ford Lynn is a 82-year-old male with a past medical history of NSTEMI/CAD, CKD 3, type II DM with nephropathy, COPD, complete heart block, obesity, former tobacco use who presents to the emergency department with 1 day of generalized illness, shortness of breath, and inability to ambulate due to severe shortness of breath. He has had a mild nonproductive cough, chills, body aches, and has been feeling feverish. No diarrhea/constipation, nausea, vomiting, abdominal pain, syncope. Has chronic respiratory failure with 3 L of baseline oxygen In the ER he is tachycardic, tachypneic, with borderline fever requiring 6 L of oxygen to maintain SPO2 greater than 90%. His chest x-ray shows moderate pulmonary edema with faint airspace opacities from which pneumonitis/pneumonia cannot be ruled out. He has a leukocytosis of 11.27, creatinine baseline of around 2.3 with admitting creatinine of 2.2, lactate of 2.0, elevated high- sensitivity troponin of 74.7, and a negative procalcitonin. Respiratory bio fire is negative. BP 80s improved post fluids. Full 30cc/kg sepsis cobb snot ordered due to reduced EF and clinical responsbile. At bedside: Ford reports yesterday morning he felt more tired and short of breath and then very very weak walking to the bathroom. DOes not usually use O2 going to the bathroom, but went to walk to the BR and had weakness and tightness in his chest. Temp yesterday 100.4*F, took tylenol in the ER but none this mronign at home. Thinks he started to feel weak 2-3 days ago, but notes he intermittently had not felt well in the last week. Pt notes he did get his pneumonia shots. Had had congestion/chest tightness last 2 days, but tightness going to the bathroom felt different. This has resolved/improved after 30 minutes while on oxygen. Peeing normally Has some chills and shakes which ar enew LEgs 'way down from normal.' Has been on bumex at home Apixaban 2.5mg BID for Medical History: Reviewed Medications: Reviewed Surgical History: Reviewed Family history: Reviewed Allergies: Reviewed Social History: Reviewed Code Status: Full code Allergies Allergy/AdvReac Type Severity Reaction Status Date / Time No Known Allergies Allergy Verified 06/09/22 09:40 Home Medications Medication Instructions Recorded Confirmed Type aspirin 81 mg tablet,delayed 81 mg PO Q OTHER DAY 05/23/18 07/05/22 History release insulin regular human 100 unit/mL 12 unit subcut TIDM 02/13/20 07/05/22 History injection solution (Novolin R Regular U-100 Insulin) nitroglycerin 0.4 mg sublingual 0.4 mg sublingual UD PRN chest 03/28/20 07/05/22 Rx tablet (Nitrostat) pain #30 Tabs flash glucose sensor (FreeStyle #1 ea 06/18/20 06/09/22 Rx Maritza 14 Day Sensor kit) Portable Oxygen #1 ea 11/12/20 06/09/22 Rx apixaban 2.5 mg tablet (Eliquis) 2.5 mg PO BID 05/13/21 07/05/22 History rosuvastatin 5 mg tablet 5 mg PO Q2D #90 tabs 05/27/21 07/05/22 Rx ezetimibe 10 mg tablet 10 mg PO DAILY #90 tabs 08/20/21 07/05/22 Rx metoprolol succinate 25 mg 25 mg PO BID #180 tabs 12/17/21 07/05/22 Rx tablet,extended release 24 hr alprazolam 0.5 mg tablet 0.5 mg PO DAILY #90 tabs 01/24/22 07/05/22 Rx lisinopril 5 mg tablet 5 mg PO DAILY #90 tabs 02/03/22 07/05/22 Rx pen needle, diabetic 32 gauge x #360 ea 02/26/22 06/09/22 Rx 5/16" (Comfort EZ Pen [place]) amlodipine 10 mg tablet 10 mg PO HS #90 tabs 04/14/22 07/05/22 Rx hydralazine 50 mg tablet 25 mg PO BID 05/07/22 07/05/22 History albuterol sulfate 90 mcg/actuation 2 puff inhalation QID PRN 05/08/22 07/05/22 Rx aerosol inhaler (Ventolin HFA) shortness of breath or wheezing #54 grams fluticasone fur. 200 mcg-umeclid 1 inh inhalation DAILY #3 Inhalers 05/15/22 07/05/22 Rx 62.5 mcg-vilant 25 mcg inhalat.powder (Trelegy Ellipta) pen needle, diabetic 32 gauge x #270 ea 05/21/22 06/09/22 Rx 5/32" (BD Ultra-Fine [place] Pen Needle) levothyroxine 50 mcg tablet 50 mcg PO DAILY #90 tabs 05/27/22 07/05/22 Rx insulin glargine 100 unit/mL (3 18 unit (0.18 mL) subcut QPM #15 06/10/22 07/05/22 Rx mL) subcutaneous pen (Lantus syringes Solostar U-100 Insulin) bumetanide 0.5 mg tablet 1 mg PO DAILY 07/05/22 07/05/22 History Past Med/Surg History Medical History MARJORIE (acute kidney injury) Anemia Aneurysm of abdominal aorta Benign prostatic hyperplasia with elevated prostate specific antigen (PSA) CAD, multiple vessel Carotid artery stenosis, asymptomatic CHF (congestive heart failure) Chronic kidney disease Chronic kidney disease, stage III (moderate) Chronic obstructive pulmonary disease Community acquired pneumonia Diabetes mellitus, type 2 Diabetic nephropathy Diverticulitis of colon Edema Elevated PSA Elevated troponin Enteritis Herpes zoster Hypercholesterolemia Hyperkalemia Hyperlipidemia Hypertension Hypoxia Male erectile disorder of organic origin Myocardial Infarction Panic disorder without agoraphobia Peripheral vascular disease Pre-operative exam Proteinuria Pulmonary nodule SOB (shortness of breath) Steroid-induced hyperglycemia Tobacco use disorder Uncontrolled type 2 diabetes mellitus Surgical History H/O aortic aneurysm repair History of partial colectomy Stented coronary artery Family History Mother Coronary heart disease COPD (chronic obstructive pulmonary disease) Father Diabetes Brother Unknown family medical history Other Diabetes mellitus type 1 Heart disease Denies family history of Ovarian cancer Prostate cancer Myocardial infarction Breast cancer Colorectal cancer Cancer Social History Smoking Status: Never smoker Tobacco Type: Cigarettes Age Started Using Tobacco: 15; Age Quit Using Tobacco: 70; packs per day: 1; Second Hand Exposure: No; Hx Alcohol Use: No Hx Substance Use: No Preferred Language: Stateless Communication Ability: Effective Visual Impairment: No Limitations Hearing Ability: Normal Ware Finisher Required: No Beliefs That Will Affect Care: None marital status: Current Living Situation: Spouse current occupational status: retired current occupation: Retired from career with [employer] Feels Safe at Home: Yes Childhood Exposure to Second-Hand Smoke: Yes caffeine: Yes Dental Care, Regularly: No Physical Activity Frequency: Does not Exercise Seatbelt Use: always Sunscreen Use: No Assistive Devices: Glasses and Oxygen - Continuous Physical Exam Physical Exam: General: A&Ox3. NAD. Cooperative. HEENT: Atraumatic, normocephalic. Pulm:Dimimished in the bases, no wheezes/rales/rhonchi . Symmetrical chest rise. No increased work of breathing. O2 6L O2 Cardiac: regular, -mrg. Radial pulses intact and symmetrical. Abdominal: Nontender, nondistended, soft. BS present. Results & Data Results & Data Vital Signs (Past 12 Hours) Vital Signs Temp Pulse Pulse Resp BP BP Pulse Ox 07/05/22 12:42 37.6 C H 07/05/22 12:23 94 H 07/05/22 12:15 103 H 28 H 103/74 92 07/05/22 12:15 103 H 93 07/05/22 12:25 103 H 28 H 103/74 92 07/05/22 11:21 37.5 C 112 H 22 169/71 H 86 L O2 Del Method O2 Flow Rate 07/05/22 12:42 07/05/22 12:23 07/05/22 12:15 Nasal Cannula 6 07/05/22 12:15 Nasal Cannula 6 07/05/22 12:25 Nasal Cannula 6 07/05/22 11:21 Nasal Cannula 3 PG Care Time/CCT Total # of Minutes Spent Total Time Spent with Patient: Total time spent is greater than 50% in coordination of care (as documented) at patient's floor/unit and/or counseling patient: Coding Level of Care Code 62722 INT INP/OBS CARE 3/75MIN Diagnoses Shortness of breath R06.02 Diabetes E11.22; N18.3; Z79.4 Diabetes mellitus type: type 2 Diabetes mellitus mcfp insulin use: with mcfp use Diabetes mellitus complication status: with kidney complications Diabetes mellitus complication detail: with chronic kidney disease Chronic kidney disease stage: stage 3 (moderate) Hypothyroidism E03.9 Hypothyroidism type: acquired CAD, multiple vessel I25.10 Third degree heart block I44.2 COPD exacerbation J44.1 (2) Diabetes Diabetes mellitus type: type 2 Diabetes mellitus long term acute care registered nurse insulin use: with mcfp use Diabetes mellitus complication status: with kidney complications Diabetes mellitus complication detail: with chronic kidney disease Chronic kidney disease stage: stage 3 (moderate) Qualified Code(s): E11.22 - Type 2 diabetes mellitus with diabetic chronic kidney disease; N18.3 - Chronic kidney disease, stage 3 (moderate); 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
[2022-07-05] MEDS ORDERED: GLUCOSE 40% GEL 15 GM TUBE PO PRN (15:10)
[2022-07-05] MEDS ORDERED: CARBOHYDRATES FOR HYPOGLYCEMIA PO PRN (15:10)
[2022-07-05] MEDS ORDERED: DEXTROSE 50% 50 ML SYRINGE IV PRN (15:10)
[2022-07-05] MEDS ORDERED: GLUCOSE 10 TAB/TUBE PO PRN (15:10)
[2022-07-05] MEDS ORDERED: GLUCAGON FOR INJ 1 MG VIAL SQ PRN (15:10)
[2022-07-05] MEDS ORDERED: ACETAMINOPHEN 325 MG TAB PO PRN (16:27)
[2022-07-05] MEDS: ASPIRIN 81 MG ECTAB PO SCH (16:55)
[2022-07-05] MEDS: ROSUVASTATIN CALCIUM 5 MG TAB PO SCH (16:58)
[2022-07-05] MEDS: INSULIN ASPART PER UNIT CHARGE SC SCH ×2 (18:04→20:58)
[2022-07-05] MEDS: APIXABAN 2.5 MG TAB PO SCH (21:01)
[2022-07-05] MEDS: LANTUS PER UNIT CHARGE SQ SCH (21:01)
[2022-07-05] MEDS: hydrALAZINE HCL 25 MG TAB PO SCH (21:02)
[2022-07-06] MEDS: CEFEPIME 2,000 MG in SYRINGE 0 ML IV SCH ×2 (01:25→12:41)
[2022-07-06 06:09] LABS: Basophils # (auto) 0.09 K/uL (0-0.2); Eosinophils # (auto) 0.02 K/uL (0-0.50); Eosinophils % (auto) 0.2 %; Hematocrit (blood only) 35.5 % (42.0-52.0); Hemoglobin 11.9 g/dl (14.0-18.0); Immature Granulocytes # (auto) 0.05 K/uL (0.01-0.20); Immature Granulocytes % (auto) 0.6 %; Lymphocytes # (auto) 1.27 K/uL (1.2-3.4); Mean Corpuscular Hemoglobin 31.5 pg (25.0-34.0); Mean Corpuscular Hgb Conc 33.5 g/dL (32.0-36.0); Mean Corpuscular Volume 93.9 fL (80.0-100.0); Mean Platelet Volume 10.1 fL (9.4-12.4); Monocytes # (auto) 1.09 K/uL (0.11-0.59); Neutrophils # (auto) 6.55 K/uL (1.40-6.50); Neutrophils % (auto) 72.2 %; Platelet Count 201 K/uL (130-400); RDW Coefficient of Variation 13.7 % (11.5-14.5); RDW Standard Deviation 46.5 fL (36.4-46.3); Red Blood Count 3.78 M/uL (4.70-6.10); White Blood Count 9.07 K/ul (4.8-10.8)
[2022-07-06 06:23] LABS: BUN Creatinine Ratio 24.2 (10-20); Calcium 8.3 mg/dl (8.6-10.3); Creatinine Clr Calc Pharmacy 29.7 ml/min; Est GFR (African American) 31.1 ml/min; Est GFR (Non-African American) 26.9 ml/min; Potassium 4.6 mmol/L (3.5-5.1)
[2022-07-06] MEDS: LEVOTHYROXINE SODIUM 50 MCG TABLET PO SCH (06:29)
--- NOTE | 2022-07-06 08:32 | Electrocardiogram Report ---
Test Reason : Blood Pressure : / mmHG Vent. Rate : 110 BPM Atrial Rate : 110 BPM P-R Int : 000 ms QRS Dur : 170 ms QT Int : 358 ms P-R-T Axes : 000 -80 093 degrees QTc Int : 484 ms Poor data quality, interpretation may be adversely affected Ventricular-paced rhythm Abnormal ECG When compared with ECG of 20-FEB-2021 09:18, Vent. rate has increased BY 37 BPM Confirmed by Francisco Javier May ([id number]) on 07/06/2022 8:32:05 AM Referred By: REFERRED SELF Confirmed By:Francisco Javier May
[2022-07-06] MEDS ORDERED: BUMETANIDE 1 MG TAB PO SCH (09:00)
[2022-07-06] MEDS ORDERED: NON-FORMULARY MEDICATION (Fluticasone-Umeclidin-Vilanter [Trelegy Ellipta] 200-62.5-25 mcg INH SCH (09:00)
[2022-07-06] MEDS ORDERED: ALPRAZolam 0.5 MG TABLET PO SCH (09:00)
[2022-07-06] MEDS: APIXABAN 2.5 MG TAB PO SCH ×2 (09:04→21:05)
[2022-07-06] MEDS: hydrALAZINE HCL 25 MG TAB PO SCH ×2 (09:04→21:05)
[2022-07-06] MEDS: FLUTICASONE FUROATE 200MCG 14 PUFFS/INHALER INH SCH (09:05)
[2022-07-06] MEDS: UMECLIDINIUM/VILANTEROL 62.5/25MCG 7 PUFFS/INHALER INH SCH (09:05)
[2022-07-06] MEDS: INSULIN ASPART PER UNIT CHARGE SC SCH ×4 (09:06→21:05)
[2022-07-06] MEDS: LANTUS PER UNIT CHARGE SQ SCH ×2 (09:06→21:05)
[2022-07-06] MEDS: guaiFENesin 600 MG TABCR PO SCH ×2 (09:43→21:05)
[2022-07-06 09:47] LABS: Magnesium 1.7 mg/dl (1.7-2.4)
[2022-07-06 10:00] LABS: Troponin I High Sensitivity 108.3 pg/ml (0-20)
--- NOTE | 2022-07-06 11:58 | CT Scan Report ---
CT chest diagnostic wo con CLINICAL HISTORY: pna v chf TECHNIQUE: Multidetector row helical CT of the chest was performed. Coronal and sagittal reformations were obtained. Automated dose lowering techniques and/or adjustment according to patient size were u tilized for this exam. CT DOSE: 655.22 mGy.cm Comparison: Comparison is made to CT chest 10/23/2021 and chest radiograph 07/05/2022 FINDINGS: Lungs and pleura: Extensive emphysema is seen. Airspace opacity is seen in the left greater than righ t lower lung. Scattered atelectasis is most prominent in the left midlung. A few scattered pulmonary nodules measure up to 6 mm in the right lower lobe (series 4 image 217) and 8 mm in the left lower lo be (image 269), stable from prior exam. Heart and pericardium: There is cardiomegaly without evidence of pericardial effusion. Vessels: Severe atherosclerotic changes in the aorta and coronary arteries. Mediastinum and merlin: Multifocal mediastinal lymph nodes measure up to 13 mm in diameter. Chest wall and lower neck: Unremarkable. Abdomen: Hyperdense exophytic cyst in the left kidney is noted. Partial visualization of a exophytic right renal cyst as well. Bones: Degenerative changes in the thoracic spine. IMPRESSION: Findings are compatible with pneumonia versus aspiration in the left greater than right lower lung. S cattered pulmonary nodular densities are seen, overall similar to prior exam and dating back to 2019. ACT 112: Negative or not required by law. Electronically signed by: Humphrey Garcia M.D. 07/06/2022 11:56 AM
[2022-07-06] MEDS: ALBUT/IPRATROP 3MG/0.5MG NEB 3 ML VIAL NEB SCH ×3 (12:06→19:18)
--- NOTE | 2022-07-06 13:36 | Hospitalist Progress Note ---
Date of Service July 06, 2022 Assessment & Plan (1) Community acquired bacterial pneumonia: Plan: 82 yo M with several days of fever (100.4F), congestion, productive cough, and increasing dyspnea with sepsis secondary to LLL pneumonia Acute/unstable - high risk - Met sepsis with fever (Tmax of 38.4C), mild leukocytosis, tachycardia, and tachypnea - CXR on admit appeared more c/w pulmonary edema v pna - Treated with Cefepime in ED and continued on admission - Sputum and blood cultures ordered/pending - CT chest w/o contrast obtained this AM c/w LLL pna - Given underlying severe COPD, change abx to Doxycycline 100mg BID for atypical coverage - Hypotension was documented in H&P but no recorded BP readings to corroborate this - he was given a fluid bolus in the ER, 30 cc/kg deferred d/t h/o HF - Add Duonebs and Mucinex - Continue incentive spirometer and flutter (2) Respiratory failure with hypoxia: Plan: Acute on chronic/unstable - high risk - Chronic respiratory failure w/ hypoxia secondary to severe/advanced COPD - Chronically on 3L of O2 at rest and goes up to 4L with activity per last pulmonology note, follows with Dr. Bailey - Reviewed last note from May [address] Bailey - Also with nocturnal hypoxia, while on his 3L he dropped to 86% per RN - Duonebs QIDR and q2prn dyspnea/wheezing (3) Elevated troponin: Plan: Acute/unstable - H/o multivessel CAD, diastolic CHF, paroxysmal afib, HTN & Third degree heart block s/p PPM, follows with Dr. Dubois - Reviewed last cardiology note from visit with Dr. Dubois in March 2022 - Elevated hs trop on admit of 74.7, repeat this morning 108.3 - Continue to trend to peak - Suspect demand ischemia in the setting of a/c respiratory failure with hypoxia - Continue ASA, Rosuvastatin, Toprol XL, Hydralazine, Lisinopril, and Eliquis (4) Diabetes: Plan: Chronic/stable Basal bolus SSI Goal BSG [id number] Weight-based parameters entered Type II DM diet (5) Chronic kidney disease, stage III (moderate): Plan: Chronic/stable - Baseline creatinine 2.2, reviewed chemistry panel this AM, creatinine 2.19 - Follows with Dr. Westbrook, reviewed last note from 06/04/22 visit - Will continue to monitor renal function closely and adjust meds for creatinine clearance when needed Plan Again discussed code status today with patient and , patient deferred to and she adamantly wants him to be a full code despite his severe/advanced COPD and multitude of cardiac issues. Treatment as outlined above. Plan to be d/w Dr. Wilks. Admission and Anticipated Discharge Date Admission Date: July 05, 2022 Subjective Patient seen on daily rounds this morning. Hospitalized with community acquired pneumonia with increased oxygen requirements. He is currently resting in bed, at bedside, reported some chest tightness just prior to my arrival. Per RN, he got up and ambulated to the bathroom without his oxygen, sat dropped to 68%. He was assisted back to bed and oxygen replaced, he was able to be weaned down to 4L. He currently has no other complaints/questions/concerns. Physical Exam Physical Exam: GENERAL: 82 yo well-developed, well-nourished elderly WM. A&Ox3. NAD. LUNGS: Nonlabored, decreased air exchange. Diminished throughout with crackles in LLL. CARDIOVASCULAR: RRR 2-3/6 HARLEY noted. No g/r. ABDOMEN: Soft, non-tender and non-distended. BS normoactive x 4 quad. EXTREMITIES: No edema. Non-tender. Peripheral pulses +2/4. Results & Data Results & Data Vital Signs (Past 12 Hours) Vital Signs Temp Pulse Pulse Resp BP Pulse Ox O2 Del Method 07/06/22 12:07 91 H 18 95 Oxymask 07/06/22 11:20 36.8 C 84 20 110/65 92 Nasal Cannula 07/06/22 09:52 Nasal Cannula 07/06/22 09:02 22 90 Nasal Cannula 07/06/22 09:00 26 H 91 Oxymask 07/06/22 09:00 34 H 68 L Room Air 07/06/22 07:22 77 07/06/22 07:09 36.8 C 84 19 112/68 90 Nasal Cannula 07/06/22 03:15 37.3 C 105 H 24 125/76 92 Nasal Cannula 07/06/22 02:40 37.5 C 105 H 28 H 125/63 96 Oxymask 07/06/22 02:20 38.4 C H 71 32 H 142/74 H 94 Oxymask O2 Flow Rate 07/06/22 12:07 4 07/06/22 11:20 4 07/06/22 09:52 3 07/06/22 09:02 3 07/06/22 09:00 10 07/06/22 09:00 07/06/22 07:22 07/06/22 07:09 6 07/06/22 03:15 6 07/06/22 02:40 8 07/06/22 02:20 10 Laboratory Results 07/06/22 05:27 07/06/22 05:[address] 07/06/22 08:52 CT chest diagnostic wo con CLINICAL HISTORY: pna v chf TECHNIQUE: Multidetector row helical CT of the chest was performed. Coronal and sagittal reformations were obtained. Automated dose lowering techniques and/or adjustment according to patient size were utilized for this exam. CT DOSE: 655.22 mGy.cm Comparison: Comparison is made to CT chest 10/23/2021 and chest radiograph 07/05/2022 FINDINGS: Lungs and pleura: Extensive emphysema is seen. Airspace opacity is seen in the left greater than right lower lung. Scattered atelectasis is most prominent in the left midlung. A few scattered pulmonary nodules measure up to 6 mm in the right lower lobe (series 4 image 217) and 8 mm in the left lower lobe (image 269), stable from prior exam. Heart and pericardium: There is cardiomegaly without evidence of pericardial effusion. Vessels: Severe atherosclerotic changes in the aorta and coronary arteries. Mediastinum and merlin: Multifocal mediastinal lymph nodes measure up to 13 mm in diameter. Chest wall and lower neck: Unremarkable. Abdomen: Hyperdense exophytic cyst in the left kidney is noted. Partial visualization of a exophytic right renal cyst as well. Bones: Degenerative changes in the thoracic spine. IMPRESSION: Findings are compatible with pneumonia versus aspiration in the left greater than right lower lung. Scattered pulmonary nodular densities are seen, overall similar to prior exam and dating back to 2019. ACT 112: Negative or not required by law. Electronically signed by: Humphrey Garcia M.D. 07/06/2022 11:56 AM PG Care Time/CCT Total # of Minutes Spent Total Time Spent with Patient: Total time spent is greater than 50% in coordination of care (as documented) at patient's floor/unit and/or counseling patient: Coding Level of Care Code 84324 SUB INP/OBS CARE 50MIN Diagnoses Community acquired bacterial pneumonia J15.9 Respiratory failure with hypoxia J96.01 Chronicity: acute Elevated troponin R77.8 Diabetes E11.22; N18.3; Z79.4 Diabetes mellitus type: type 2 Diabetes mellitus terminal manager insulin use: with terminal manager use Diabetes mellitus complication status: with kidney complications Diabetes mellitus complication detail: with chronic kidney disease Chronic kidney disease stage: stage 3 (moderate) Chronic kidney disease, stage III (moderate) N18.3 (2) Respiratory failure with hypoxia Chronicity: acute Qualified Code(s): J96.01 - Acute respiratory failure with hypoxia (4) Diabetes Diabetes mellitus type: type 2 Diabetes mellitus usp insulin use: with usp use Diabetes mellitus complication status: with kidney complications Diabetes mellitus complication detail: with chronic kidney disease Chronic k idney disease stage: stage 3 (moderate) Qualified Code(s): E11.22 - Type 2 diabetes mellitus with diabetic chronic kidney disease; N18.3 - Chronic kidney disease, stage 3 (moderate); 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
[2022-07-06] MEDS: DOXYCYCLINE HYCLATE 100 MG in DEXTROSE 5% 100 ML IV SCH (14:44)
[2022-07-07] MEDS: DOXYCYCLINE HYCLATE 100 MG in DEXTROSE 5% 100 ML IV SCH ×2 (03:11→12:39)
[2022-07-07] MEDS: LEVOTHYROXINE SODIUM 50 MCG TABLET PO SCH (06:36)
[2022-07-07] MEDS: ALBUT/IPRATROP 3MG/0.5MG NEB 3 ML VIAL NEB SCH ×4 (07:12→19:34)
[2022-07-07] MEDS: UMECLIDINIUM/VILANTEROL 62.5/25MCG 7 PUFFS/INHALER INH SCH (08:40)
[2022-07-07] MEDS: APIXABAN 2.5 MG TAB PO SCH ×2 (08:41→20:43)
[2022-07-07] MEDS: ASPIRIN 81 MG ECTAB PO SCH (08:41)
[2022-07-07] MEDS: guaiFENesin 600 MG TABCR PO SCH ×2 (08:41→20:44)
[2022-07-07] MEDS: BUMETANIDE 1 MG TAB PO SCH (08:41)
[2022-07-07] MEDS: FLUTICASONE FUROATE 200MCG 14 PUFFS/INHALER INH SCH (08:41)
[2022-07-07] MEDS: hydrALAZINE HCL 25 MG TAB PO SCH ×2 (08:41→20:43)
[2022-07-07] MEDS: INSULIN ASPART PER UNIT CHARGE SC SCH ×4 (08:42→20:56)
[2022-07-07] MEDS: LANTUS PER UNIT CHARGE SQ SCH ×2 (08:43→20:57)
--- NOTE | 2022-07-07 08:49 | XCELERA ---
[id number] \\[id number]
--- NOTE | 2022-07-07 11:09 | Hospitalist Progress Note ---
Date of Service July 07, 2022 Assessment & Plan (1) Community acquired bacterial pneumonia: Plan: 82 yo M with several days of fever (100.4F), congestion, productive cough, and increasing dyspnea with sepsis secondary to LLL pneumonia Acute/unstable - high risk - Met sepsis with fever (Tmax of 38.4C), mild leukocytosis, tachycardia, and tachypnea - CXR on admit appeared more c/w pulmonary edema v pna - Treated with Cefepime in ED and continued on admission - Sputum and blood cultures ordered/collected 07/07 and pending - CT chest w/o contrast obtained this 07/06 c/w LLL pna - Given underlying severe COPD, changed abx to Doxycycline 100mg BID for atypical coverage - Hypotension was documented in H&P but no recorded BP readings to corroborate this - he was given a fluid bolus in the ER, 30 cc/kg deferred d/t h/o HF - Added Duonebs and Mucinex on 07/06 - Add incentive spirometer and flutter valve - Of note, sepsis syndrome has RESOLVED, cbc reviewed this AM wbc 10.96 (2) Respiratory failure with hypoxia: Plan: Acute on chronic/unstable - high risk - Chronic respiratory failure w/ hypoxia secondary to severe/advanced COPD - Chronically on 3L of O2 at rest and goes up to 4L with activity per last pulmonology note, follows with Dr. Bailey - Reviewed last note from May [address] Bailey - Also with nocturnal hypoxia, while on his 4L he dropped to 83% per RN - Will need sleep study as outpatient to qualify for cpap device - Duonebs QIDR and q2prn dyspnea/wheezing - Continue O2 to maintain sats 88-92%, currently requiring 4L which is above his baseline of 3L (3) Elevated troponin: Plan: Acute/unstable - high risk - H/o multivessel CAD, diastolic CHF, paroxysmal afib, HTN & Third degree heart block s/p PPM, follows with Dr. Dubois - Reviewed last cardiology note from visit with Dr. Dubois in March 2022 - Elevated hs trop on admit of 74.7, trended --> 108.3 --> 103.9 --> 98.2 - Suspect demand ischemia in the setting of a/c respiratory failure with hypoxia - Continue ASA, Rosuvastatin, Toprol XL, Hydralazine, Lisinopril, and Eliquis - Echocardiogram ordered/completed: LV systolic fxn low normal, EF 50-55%, no regional WMA, atypical wall motion abnormality may reflect PPM activation, R ventricle normal in size and function. Mild to moderate MR. RVSP is normal. (4) Diabetes: Plan: Chronic/stable Basal bolus SSI Goal BSG 056213 Weight-based parameters entered Type II DM diet (5) Chronic kidney disease, stage III (moderate): Plan: Chronic/stable - Baseline creatinine 2.2, reviewed chemistry panel this AM, creatinine stable at 2.18 - Follows with Dr. Westbrook, reviewed last note from 06/04/22 visit - Will continue to monitor renal function closely and adjust meds for creatinine clearance when needed Plan Treatment as outlined above. PT/OT eval. AM labs ordered. Plan to be d/w Dr. Wilks. Admission and Anticipated Discharge Date Admission Date: July 05, 2022 Subjective Patient seen on daily rounds this morning. He is much more awake/alert today. Reports coughing up sputum, able to send sample to lab. He denies fever/chills. No chest pain or dyspnea this AM. Was informed by RN that his O2 level dropped to 83% overnight while sleeping and he required titration of O2 to 6L but has since been weaned back down to 4L and is currently 90%. Physical Exam Physical Exam: GENERAL: 82 yo well-developed, well-nourished elderly WM. A&Ox3. NAD. LUNGS: Nonlabored, improved air exchange. Diminished throughout with crackles in LLL. CARDIOVASCULAR: RRR. No m/g/r. ABDOMEN: Soft, non-tender and non-distended. BS normoactive x 4 quad. EXTREMITIES: No edema. Non-tender. Peripheral pulses +2/4. Results & Data Results & Data Vital Signs (Past 12 Hours) Vital Signs Temp Pulse Pulse Resp BP Pulse Ox O2 Del Method 07/07/22 08:00 Nasal Cannula 07/07/22 07:40 85 07/07/22 07:13 91 H 18 96 Nasal Cannula 07/07/22 07:08 36.6 C 83 19 112/75 93 Oxymask 07/07/22 04:00 37 C 76 19 98/62 L 93 Nasal Cannula 07/06/22 23:59 37.0 C 97 H 21 93/54 L 92 Nasal Cannula O2 Flow Rate 07/07/22 08:00 4 07/07/22 07:40 07/07/22 07:13 6 07/07/22 07:08 6 07/07/22 04:00 6 07/06/22 23:59 6 Laboratory Results 07/07/22 11:22 07/07/22 11:22 PG Care Time/CCT Total # of Minutes Spent Total Time Spent with Patient: Total time spent is greater than 50% in coordination of care (as documented) at patient's floor/unit and/or counseling patient: Coding Level of Care Code 29322 SUB INP/OBS CARE 3/50MIN Diagnoses Community acquired bacterial pneumonia J15.9 Respiratory failure with hypoxia J96.01 Chronicity: acute Elevated troponin R77.8 Diabetes E11.22; N18.3; Z79.4 Chronic kidney disease stage: stage 3 (moderate) Diabetes mellitus complication detail: with chronic kidney disease Diabetes mellitus complication status: with kidney complications Diabetes mellitus senior care insulin use: with senior care use Diabetes mellitus type: type 2 Chronic kidney disease, stage III (moderate) N18.3 (2) Respiratory failure with hypoxia Chronicity: acute Qualified Code(s): J96.01 - Acute respiratory failure with hypoxia (4) Diabetes Chronic kidney disease stage: stage 3 (moderate) Diabetes mellitus complication detail: with chronic kidney disease Diabetes mellitus complication status: with kidney complications Diabetes mellitus senior care insulin use: with senior care use Diabetes mellitus type: type 2 Qualified Code(s): E11.22 - Type 2 diabetes mellitus with diabetic chronic kidney disease; N18.3 - Chronic kidney disease, stage 3 (moderate); Z79.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
[2022-07-07 11:42] LABS: Basophils # (auto) 0.11 K/uL (0-0.2); Eosinophils # (auto) 0.15 K/uL (0-0.50); Eosinophils % (auto) 1.4 %; Hematocrit (blood only) 36.6 % (42.0-52.0); Hemoglobin 12.7 g/dl (14.0-18.0); Immature Granulocytes # (auto) 0.06 K/uL (0.01-0.20); Immature Granulocytes % (auto) 0.5 %; Lymphocytes # (auto) 1.52 K/uL (1.2-3.4); Lymphocytes % (auto) 13.9 %; Mean Corpuscular Hemoglobin 31.4 pg (25.0-34.0); Mean Corpuscular Hgb Conc 34.7 g/dL (32.0-36.0); Mean Corpuscular Volume 90.4 fL (80.0-100.0); Mean Platelet Volume 10.4 fL (9.4-12.4); Monocytes # (auto) 1.48 K/uL (0.11-0.59); Monocytes % (auto) 13.5 %; Neutrophils # (auto) 7.64 K/uL (1.40-6.50); Neutrophils % (auto) 69.7 %; Platelet Count 203 K/uL (130-400); RDW Coefficient of Variation 13.5 % (11.5-14.5); RDW Standard Deviation 44.9 fL (36.4-46.3); Red Blood Count 4.05 M/uL (4.70-6.10); White Blood Count 10.96 K/ul (4.8-10.8)
[2022-07-07 11:59] LABS: BUN Creatinine Ratio 26.1 (10-20); Calcium 8.9 mg/dl (8.6-10.3); Creatinine Clr Calc Pharmacy 29.5 ml/min; Est GFR (African American) 31.3 ml/min; Potassium 4.1 mmol/L (3.5-5.1)
[2022-07-07] MEDS: ROSUVASTATIN CALCIUM 5 MG TAB PO SCH (17:30)
[2022-07-08] MEDS: DOXYCYCLINE HYCLATE 100 MG in DEXTROSE 5% 100 ML IV SCH ×2 (01:37→13:08)
[2022-07-08] MEDS: LEVOTHYROXINE SODIUM 50 MCG TABLET PO SCH (05:51)
[2022-07-08 06:21] LABS: Basophils # (auto) 0.13 K/uL (0-0.2); Basophils % (auto) 1.3 %; Eosinophils # (auto) 0.29 K/uL (0-0.50); Eosinophils % (auto) 2.8 %; Hematocrit (blood only) 40.1 % (42.0-52.0); Hemoglobin 13.9 g/dl (14.0-18.0); Immature Granulocytes # (auto) 0.05 K/uL (0.01-0.20); Immature Granulocytes % (auto) 0.5 %; Lymphocytes # (auto) 1.93 K/uL (1.2-3.4); Lymphocytes % (auto) 18.6 %; Mean Corpuscular Hemoglobin 31.4 pg (25.0-34.0); Mean Corpuscular Hgb Conc 34.7 g/dL (32.0-36.0); Mean Corpuscular Volume 90.5 fL (80.0-100.0); Mean Platelet Volume 10.5 fL (9.4-12.4); Monocytes # (auto) 1.39 K/uL (0.11-0.59); Monocytes % (auto) 13.4 %; Neutrophils # (auto) 6.56 K/uL (1.40-6.50); Neutrophils % (auto) 63.4 %; Platelet Count 245 K/uL (130-400); RDW Coefficient of Variation 13.5 % (11.5-14.5); RDW Standard Deviation 45.5 fL (36.4-46.3); Red Blood Count 4.43 M/uL (4.70-6.10); White Blood Count 10.35 K/ul (4.8-10.8)
[2022-07-08 06:41] LABS: Anion Gap 11 (3-11); BUN Creatinine Ratio 26.7 (10-20); Blood Urea Nitrogen 59 mg/dl (6-23); Calcium 8.7 mg/dl (8.6-10.3); Carbon Dioxide 18 mmol/L (21-32); Chloride 106 mmol/L (98-107); Creatinine Clr Calc Pharmacy 29.2 ml/min; Est GFR (African American) 30.8 ml/min; Est GFR (Non-African American) 26.6 ml/min; Glucose 164 mg/dl (70-99(Fasting)); Magnesium 1.8 mg/dl (1.7-2.4); Sodium 135 mmol/L (136-145)
[2022-07-08] MEDS: ALBUT/IPRATROP 3MG/0.5MG NEB 3 ML VIAL NEB SCH ×4 (07:25→20:08)
[2022-07-08] MEDS: BUMETANIDE 1 MG TAB PO SCH (09:33)
[2022-07-08] MEDS: FLUTICASONE FUROATE 200MCG 14 PUFFS/INHALER INH SCH (09:33)
[2022-07-08] MEDS: APIXABAN 2.5 MG TAB PO SCH ×2 (09:33→21:11)
[2022-07-08] MEDS: UMECLIDINIUM/VILANTEROL 62.5/25MCG 7 PUFFS/INHALER INH SCH (09:34)
[2022-07-08] MEDS: guaiFENesin 600 MG TABCR PO SCH ×2 (09:34→21:12)
[2022-07-08] MEDS: INSULIN ASPART PER UNIT CHARGE SC SCH ×4 (09:35→21:13)
[2022-07-08] MEDS: LANTUS PER UNIT CHARGE SQ SCH ×2 (09:35→21:14)
[2022-07-08] MEDS: hydrALAZINE HCL 25 MG TAB PO SCH ×2 (09:35→21:12)
[2022-07-08] MEDS ORDERED: methylPREDNISolone 125 MG in SYRINGE 0 ML IV ONE (12:15)
--- NOTE | 2022-07-08 15:07 | Hospitalist Progress Note ---
Date of Service July 08, 2022 Assessment & Plan (1) Community acquired bacterial pneumonia: Plan: 82 yo M with several days of fever (100.4F), congestion, productive cough, and increasing dyspnea with sepsis secondary to LLL pneumonia Acute/unstable - high risk - Met sepsis with fever (Tmax of 38.4C), mild leukocytosis, tachycardia, and tachypnea - CXR on admit appeared more c/w pulmonary edema v pna - Treated with Cefepime in ED and continued on admission - Sputum and blood cultures ordered/collected 07/07 and pending - CT chest w/o contrast obtained this 07/06 c/w LLL pna - Given underlying severe COPD, changed abx to Doxycycline 100mg BID for atypical coverage - Hypotension was documented in H&P but no recorded BP readings to corroborate this - he was given a fluid bolus in the ER, 30 cc/kg deferred d/t h/o HF - Added Duonebs and Mucinex on 07/06 - Continue incentive spirometer and flutter valve - Of note, sepsis syndrome has RESOLVED, cbc reviewed this AM wbc 10.35 - Given a dose of Solumedrol 125mg IV x1 on 07/08 and added chest percussion (with vest) (2) Respiratory failure with hypoxia: Plan: Acute on chronic/unstable - high risk - Chronic respiratory failure w/ hypoxia secondary to severe/advanced COPD - Chronically on 3L of O2 at rest and goes up to 4L with activity per last pulmonology note, follows with Dr. Bailey - Reviewed last note from May [address] Bailey - Also with nocturnal hypoxia, while on his 4L he dropped to 83% per RN - Will need sleep study as outpatient to qualify for cpap device - Duonebs QIDR and q2prn dyspnea/wheezing - Continue O2 to maintain sats 88-92%, currently requiring 4L which is above his baseline of 3L (3) Elevated troponin: Plan: Acute/unstable - high risk - H/o multivessel CAD, diastolic CHF, paroxysmal afib, HTN & Third degree heart block s/p PPM, follows with Dr. Dubois - Reviewed last cardiology note from visit with Dr. Dubois in March 2022 - Elevated hs trop on admit of 74.7, trended --> 108.3 --> 103.9 --> 98.2 - Suspect demand ischemia in the setting of a/c respiratory failure with hypoxia - Continue ASA, Rosuvastatin, Toprol XL, Hydralazine, Lisinopril, and Eliquis - Echocardiogram ordered/completed: LV systolic fxn low normal, EF 50-55%, no regional WMA, atypical wall motion abnormality may reflect PPM activation, R ventricle normal in size and function. Mild to moderate MR. RVSP is normal. (4) Diabetes: Plan: Chronic/stable Basal bolus SSI Goal BSG 527462 Weight-based parameters entered Type II DM diet (5) Chronic kidney disease, stage III (moderate): Plan: Chronic/stable - Baseline creatinine 2.2, reviewed chemistry panel this AM, creatinine stable a t 2.21 - Follows with Dr. Westbrook, reviewed last note from 06/04/22 visit - Will continue to monitor renal function closely and adjust meds for creatinine clearance when needed Plan Treatment as outlined above. PT/OT eval--suggests may need rehab with emphasis on pulmonary rehab. AM labs ordered. Plan to be d/w Dr. Wilsk. Admission and Anticipated Discharge Date Admission Date: July 05, 2022 Subjective Patient seen on daily rounds this morning. He reports still with significant shortness of breath with exertion such as walking to bathroom. Remains on 4L of O2 at rest with baseline O2 requirements of 3L at rest. Also endorses wheezing, feels that he has stuff to "get out of chest" but is having trouble bringing it up. Physical Exam Physical Exam: GENERAL: 82 yo well-developed, well-nourished elderly WM. A&Ox3. NAD. LUNGS: Nonlabored, improved air exchange. Diminished with expiratory wheezes and crackles in LLL. CARDIOVASCULAR: RRR. No m/g/r. ABDOMEN: Soft, non-tender and non-distended. BS normoactive x 4 quad. EXTREMITIES: No edema. Non-tender. Peripheral pulses +2/4. Results & Data Results & Data Vital Signs (Past 12 Hours) Vital Signs Temp Pulse Pulse Resp BP Pulse Ox O2 Del Method 07/08/22 12:14 36.8 C 59 L 18 105/58 L 92 Nasal Cannula 07/08/22 11:29 115 H 22 92 Nasal Cannula 07/08/22 10:52 Nasal Cannula 07/08/22 07:59 36.9 C 70 20 136/61 92 Nasal Cannula 07/08/22 07:45 62 07/08/22 07:29 72 18 91 Nasal Cannula 07/08/22 03:27 36.6 C 60 18 131/65 92 Nasal Cannula O2 Flow Rate 07/08/22 12:14 4 07/08/22 11:29 4 07/08/22 10:52 4 07/08/22 07:59 4 07/08/22 07:45 07/08/22 07:29 4 07/08/22 03:27 4 Laboratory Results 07/08/22 05:32 07/08/22 07:05 PG Care Time/CCT Total # of Minutes Spent Total Time Spent with Patient: Total time spent is greater than 50% in coordination of care (as documented) at patient's floor/unit and/or counseling patient: Coding Level of Care Code 66948 SUB INP/OBS CARE 3/50MIN Diagnoses Community acquired bacterial pneumonia J15.9 Respiratory failure with hypoxia J96.01 Chronicity: acute Elevated troponin R77.8 Diabetes E11.22; N18.3; Z79.4 Diabetes mellitus type: type 2 Diabetes mellitus long wall shear operator insulin use: with [facility] use Diabetes mellitus complication status: with kidney complications Diabetes mellitus complication detail: with chronic kidney disease Chronic kidney disease stage: stage 3 (moderate) Chronic kidney disease, stage III (moderate) N18.3 (2) Respiratory failure with hypoxia Chronicity: acute Qualified Code(s): J96.01 - Acute respiratory failure with hypoxia (4) Diabetes Diabetes mellitus type: type 2 Diabetes mellitus long wall shear operator insulin use: with [facility] use Diabetes mellitus complication status: with kidney complications Diabetes mellitus complication detail: with chronic kidney disease Chronic kidney disease stage: stage 3 (moderate) Qualified Code(s): E11.22 - Type 2 diabetes mellitus with diabetic chronic kidney disease; N18.3 - Chronic kidney disease, stage 3 (moderate); 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
[2022-07-09] MEDS: DOXYCYCLINE HYCLATE 100 MG in DEXTROSE 5% 100 ML IV SCH ×2 (01:40→14:26)
[2022-07-09] MEDS: LEVOTHYROXINE SODIUM 50 MCG TABLET PO SCH (05:34)
[2022-07-09 06:58] LABS: BUN Creatinine Ratio 29.6 (10-20); Calcium 9.1 mg/dl (8.6-10.3); Creatinine Clr Calc Pharmacy 29.9 ml/min; Est GFR (African American) 31.7 ml/min; Est GFR (Non-African American) 27.3 ml/min; Magnesium 1.9 mg/dl (1.7-2.4); Potassium 5.3 mmol/L (3.5-5.1)
[2022-07-09] MEDS: ALBUT/IPRATROP 3MG/0.5MG NEB 3 ML VIAL NEB SCH ×4 (07:03→19:29)
[2022-07-09] MEDS ORDERED: predniSONE 20 MG TAB PO STA (09:00)
--- NOTE | 2022-07-09 09:00 | Hospitalist Progress Note ---
Date of Service July 09, 2022 Assessment & Plan (1) Community acquired bacterial pneumonia: Plan: sepsis secondary to LLL pneumonia, sepsis resovled Acute/unstable - high risk - Treated with Cefepime in ED and underlying severe COPD, changed abx to Doxycycline 100mg BID for atypical coverage - Sputum and blood cultures negative to date - CT chest w/o contrast obtained this 07/06 c/w LLL pna - Added Duonebs and Mucinex on 07/06 - Continue incentive spirometer and flutter valve - Given a dose of Solumedrol 125mg IV x1 on 07/08 and added chest percussion (with vest), prednisone tapering dose po (2) Respiratory failure with hypoxia: Plan: Acute on chronic/unstable - high risk - Chronic respiratory failure w/ hypoxia secondary to severe/advanced COPD - Chronically on 3L of O2 at rest and goes up to 4L with activity per last pulmonology note, follows with Dr. Bailey - Duonebs QIDR and q2prn dyspnea/wheezing - Continue O2 to maintain sats 88-92%, currently requiring 4L which is above his baseline of 3L (3) Elevated troponin: Plan: Acute/unstable - high risk - H/o multivessel CAD, diastolic CHF, paroxysmal afib, HTN & Third degree heart block s/p PPM, follows with Dr. Dubois - Reviewed last cardiology note from visit with Dr. Dubois in March 2022 - Elevated hs trop on admit of 74.7, trended --> 108.3 --> 103.9 --> 98.2 - Suspect demand ischemia in the setting of a/c respiratory failure with hypoxia - Continue ASA, Rosuvastatin, Toprol XL, Hydralazine, Lisinopril, and Eliquis - Echocardiogram ordered/completed: LV systolic fxn low normal, EF 50-55%, no regional WMA, atypical wall motion abnormality may reflect PPM activation, R ventricle normal in size and function. Mild to moderate MR. RVSP is normal. (4) Diabetes: Plan: Chronic/unstable Basal bolus SSI changes ssi and increased basal rate, one time dose of NPH Type II DM diet (5) Chronic kidney disease, stage III (moderate): Plan: Chronic/stable - Baseline creatinine 2.2, reviewed chemistry panel this AM, creatinine stable at 2.21 - Follows with Dr. Westbrook, reviewed last note from 06/04/22 visit - Plan Treatment as outlined above. PT/OT eval--suggests may need rehab with emphasis on pulmonary rehab. Admission and Anticipated Discharge Date Admission Date: July 05, 2022 Subjective pt still sob and has mucus production, does not feel near 50% of his baseline Physical Exam Physical Exam: Lungs are decreased at the bases with poor air movements cardiac is regular Results & Data Results & Data Vital Signs (Past 12 Hours) Vital Signs Temp Pulse Pulse Resp BP Pulse Ox O2 Del Method 07/09/22 07:45 97.9 F 107 H 18 167/82 H 95 Nasal Cannula 07/09/22 07:05 82 18 96 Nasal Cannula 07/09/22 03:59 97.7 F 99 H 20 106/74 93 Nasal Cannula 07/08/22 23:57 97.9 F 95 H 18 113/65 98 Nasal Cannula 07/08/22 21:00 Nasal Cannula 07/08/22 22:00 95 H O2 Flow Rate 07/09/22 07:45 3 07/09/22 07:05 4 07/09/22 03:59 4 07/08/22 23:57 4 07/08/22 21:00 4 07/08/22 22:00 PG Care Time/CCT Total # of Minutes Spent Total Time Spent with Patient: Total time spent is greater than 50% in coordination of care (as documented) at patient's floor/unit and/or counseling patient: Coding Level of Care Code 10712 SUB INP/OBS CARE 2/35MIN Diagnoses Community acquired bacterial pneumonia J15.9 Respiratory failure with hypoxia J96.01 Chronicity: acute Elevated troponin R77.8 Diabetes E11.22; N18.3; Z79.4 Chronic kidney disease stage: stage 3 (moderate) Diabetes mellitus complication detail: with chronic kidney disease Diabetes mellitus complication status: with kidney complications Diabetes mellitus terminal manager insulin use: with [facility] use Diabetes mellitus type: type 2 Chronic kidney disease, stage III (moderate) N18.3 (2) Respiratory failure with hypoxia Chronicity: acute Qualified Code(s): J96.01 - Acute respiratory failure with hypoxia (4) Diabetes Chronic kidney disease stage: stage 3 (moderate) Diabetes mellitus complication detail: with chronic kidney disease Diabetes mellitus complication status: with kidney complications Diabetes mellitus fpc insulin use: with terminal manager use Diabetes mellitus type: type 2 Qualified Code(s): E11.22 - Type 2 diabetes mellitus with diabetic chronic kidney disease; N18.3 - Chronic kidney disease, stage 3 (moderate); Z79.4 - senior care (current) use of insulin
[2022-07-09] MEDS: INSULIN ASPART PER UNIT CHARGE SC SCH ×4 (09:13→22:01)
[2022-07-09] MEDS: LANTUS PER UNIT CHARGE SQ SCH ×2 (09:13→22:01)
[2022-07-09] MEDS: UMECLIDINIUM/VILANTEROL 62.5/25MCG 7 PUFFS/INHALER INH SCH (09:14)
[2022-07-09] MEDS: ASPIRIN 81 MG ECTAB PO SCH (09:14)
[2022-07-09] MEDS: BUMETANIDE 1 MG TAB PO SCH (09:14)
[2022-07-09] MEDS: APIXABAN 2.5 MG TAB PO SCH ×2 (09:14→22:04)
[2022-07-09] MEDS: guaiFENesin 600 MG TABCR PO SCH ×2 (09:15→22:04)
[2022-07-09] MEDS: FLUTICASONE FUROATE 200MCG 14 PUFFS/INHALER INH SCH (09:15)
[2022-07-09] MEDS: hydrALAZINE HCL 25 MG TAB PO SCH ×2 (09:16→22:03)
[2022-07-09] MEDS ORDERED: INSULIN HUMAN NPH SC ONE (17:45)
[2022-07-09] MEDS: ROSUVASTATIN CALCIUM 5 MG TAB PO SCH (17:55)
[2022-07-09] MEDS: ALPRAZolam 0.5 MG TABLET PO PRN (23:01)
[2022-07-10] MEDS: DOXYCYCLINE HYCLATE 100 MG in DEXTROSE 5% 100 ML IV SCH ×2 (06:20→18:01)
[2022-07-10] MEDS: LEVOTHYROXINE SODIUM 50 MCG TABLET PO SCH (06:26)
[2022-07-10] MEDS: ALBUT/IPRATROP 3MG/0.5MG NEB 3 ML VIAL NEB SCH ×4 (07:09→19:30)
[2022-07-10] MEDS: INSULIN ASPART PER UNIT CHARGE SC SCH ×4 (08:45→21:15)
[2022-07-10] MEDS: guaiFENesin 600 MG TABCR PO SCH ×2 (09:09→21:07)
[2022-07-10] MEDS: APIXABAN 2.5 MG TAB PO SCH ×2 (09:09→21:06)
[2022-07-10] MEDS: hydrALAZINE HCL 25 MG TAB PO SCH ×2 (09:10→21:08)
[2022-07-10] MEDS: BUMETANIDE 1 MG TAB PO SCH (09:11)
[2022-07-10] MEDS: FLUTICASONE FUROATE 200MCG 14 PUFFS/INHALER INH SCH (09:11)
[2022-07-10] MEDS: LANTUS PER UNIT CHARGE SQ SCH ×2 (10:11→21:15)
[2022-07-10] MEDS: UMECLIDINIUM/VILANTEROL 62.5/25MCG 7 PUFFS/INHALER INH SCH (10:11)
[2022-07-10 10:52] LABS: Basophils # (auto) 0.04 K/uL (0-0.2); Basophils % (auto) 0.2 %; Eosinophils # (auto) 0.02 K/uL (0-0.50); Eosinophils % (auto) 0.1 %; Hematocrit (blood only) 41.6 % (42.0-52.0); Hemoglobin 14.2 g/dl (14.0-18.0); Immature Granulocytes # (auto) 0.16 K/uL (0.01-0.20); Immature Granulocytes % (auto) 0.8 %; Lymphocytes # (auto) 2.03 K/uL (1.2-3.4); Lymphocytes % (auto) 10.6 %; Mean Corpuscular Hemoglobin 31.6 pg (25.0-34.0); Mean Corpuscular Hgb Conc 34.1 g/dL (32.0-36.0); Mean Corpuscular Volume 92.4 fL (80.0-100.0); Mean Platelet Volume 10.5 fL (9.4-12.4); Monocytes # (auto) 1.19 K/uL (0.11-0.59); Monocytes % (auto) 6.2 %; Neutrophils # (auto) 15.64 K/uL (1.40-6.50); Neutrophils % (auto) 82.1 %; Platelet Count 338 K/uL (130-400); RDW Coefficient of Variation 13.7 % (11.5-14.5); White Blood Count 19.08 K/ul (4.8-10.8)
[2022-07-10 11:07] LABS: Albumin Globulin Ratio 1.3 (0.9-2); Albumin Level 3.9 gm/dl (3.4-5.0); BUN Creatinine Ratio 35.6 (10-20); Bilirubin,Total 0.6 mg/dl (0.2-1.0); C Reactive Protein 1.49 mg/dl (0-0.5); Calcium 9.4 mg/dl (8.6-10.3); Creatinine Clr Calc Pharmacy 28.8 ml/min; Est GFR (African American) 30.6 ml/min; Est GFR (Non-African American) 26.4 ml/min; Globulin 3.1 gm/dl (2.5-4.0); Magnesium 1.8 mg/dl (1.7-2.4); Phosphorus 3.7 mg/dl (2.5-4.9); Potassium 4.6 mmol/L (3.5-5.1)
--- NOTE | 2022-07-10 12:34 | Electrocardiogram Report ---
Test Reason : Blood Pressure : / mmHG Vent. Rate : 081 BPM Atrial Rate : 312 BPM P-R Int : 000 ms QRS Dur : 178 ms QT Int : 468 ms P-R-T Axes : 000 -81 098 degrees QTc Int : 543 ms Ventricular-paced rhythm with premature ventricular or aberrantly conducted complexes (inclluding allison tricular triplet) Underlying rhythm likely atrial flutter Abnormal ECG When compared with ECG of 05-JUL-2022 11:59, Vent. rate has decreased BY 29 BPM Confirmed by Francisco Javier May ([id number] on 07/10/2022 12:33:42 PM Referred By: REFERRED SELF Confirmed By:Francisco Javier May
[2022-07-10] MEDS ORDERED: SODIUM CHLORIDE 0.9% 500 ML IV SCH (17:45)
[2022-07-10] MEDS: ALPRAZolam 0.5 MG TABLET PO PRN (21:14)
--- NOTE | 2022-07-10 22:23 | Hospitalist Progress Note ---
Date of Service July 10, 2022 Assessment & Plan (1) Community acquired bacterial pneumonia: Plan: sepsis secondary to LLL pneumonia, sepsis resovled Acute/unstable - high risk - Treated with Cefepime in ED and underlying severe COPD, changed abx to Doxycycline 100mg BID for atypical coverage - Sputum and blood cultures negative to date - CT chest w/o contrast obtained this 07/06 c/w LLL pna - Added Duonebs and Mucinex on 07/06 - Continue incentive spirometer and flutter valve - Given a dose of Solumedrol 125mg IV x1 on 07/08 and added chest percussion (with vest), prednisone tapering dose po Acute Kidney Injury: BUN appears higher, will give dose of IVF bolus. will recheck creat in AM. will consult nephrology (2) Respiratory failure with hypoxia: Plan: Acute on chronic/unstable - high risk - Chronic respiratory failure w/ hypoxia secondary to severe/advanced COPD - Chronically on 3L of O2 at rest and goes up to 4L with activity per last pulmonology note, follows with Dr. Lynn Coyne QIDR and q2prn dyspnea/wheezing - Continue O2 to maintain sats 88-92%, currently requiring 4L which is above his baseline of 3L (3) Elevated troponin: Plan: Acute/unstable - high risk - H/o multivessel CAD, diastolic CHF, paroxysmal afib, HTN & Third degree heart block s/p PPM, follows with Dr. Dubois - Reviewed last cardiology note from visit with Dr. Dubois in March 2022 - Elevated hs trop on admit of 74.7, trended --> 108.3 --> 103.9 --> 98.2 - Suspect demand ischemia in the setting of a/c respiratory failure with hypoxia - Continue ASA, Rosuvastatin, Toprol XL, Hydralazine, Lisinopril, and Eliquis - Echocardiogram ordered/completed: LV systolic fxn low normal, EF 50-55%, no regional WMA, atypical wall motion abnormality may reflect PPM activation, R ventricle normal in size and function. Mild to moderate MR. RVSP is normal. (4) Diabetes: Plan: Chronic/unstable Basal bolus SSI changes ssi and increased basal rate, one time dose of NPH Type II DM diet (5) Chronic kidney disease, stage III (moderate): Plan: Chronic/stable - Baseline creatinine 2.2, reviewed chemistry panel this AM, creatinine stable at 2.21 - Follows with Dr. Westbrook, reviewed last note from 06/04/22 visit - Plan Treatment as outlined above. PT/OT eval--suggests may need rehab with emphasis on pulmonary rehab. Admission and Anticipated Discharge Date Admission Date: July 05, 2022 Subjective 82 yo male reports he is back to his baseline in regards to his oxygen level. Review of Systems Review of Systems: All systems reviewed & are unremarkable except as noted in HPI & below Physical Exam Physical Exam: Lungs are decreased at the bases with poor air movements cardiac is regular Results & Data Results & Data Vital Signs (Past 12 Hours) Vital Signs Temp Pulse Pulse Pulse Resp BP BP 07/10/22 20:07 36.4 C L 70 18 147/65 H 07/10/22 19:35 86 18 07/10/22 16:56 85 07/10/22 16:56 62 07/10/22 16:05 36.4 C L 121 H 17 119/75 07/10/22 15:37 79 18 07/10/22 12:02 36.6 C 112 H 18 118/71 07/10/22 11:13 81 18 Pulse Ox O2 Del Method O2 Flow Rate 07/10/22 20:07 96 Nasal Cannula 3 07/10/22 19:35 94 Nasal Cannula 3 07/10/22 16:56 07/10/22 16:56 07/10/22 16:05 99 Nasal Cannula 3 07/10/22 15:37 95 Nasal Cannula 3 07/10/22 12:02 94 Nasal Cannula 3 07/10/22 11:13 97 Nasal Cannula 3 PG Care Time/CCT Total # of Minutes Spent Total Time Spent with Patient: Total time spent is greater than 50% in coordination of care (as documented) at patient's floor/unit and/or counseling patient: Coding Level of Care Code 42183 SUB INP/OBS CARE 3/50MIN Diagnoses Community acquired bacterial pneumonia J15.9 Respiratory failure with hypoxia J96.01 Chronicity: acute Elevated troponin R77.8 Diabetes E11.22; N18.3; Z79.4 Diabetes mellitus type: type 2 Diabetes mellitus half-way insulin use: with half-way use Diabetes mellitus complication status: with kidney complications Diabetes mellitus complication detail: with chronic kidney disease Chronic kidney disease stage: stage 3 (moderate) Chronic kidney disease, stage III (moderate) N18.3 (2) Respiratory failure with hypoxia Chronicity: acute Qualified Code(s): J96.01 - Acute respiratory failure with hypoxia (4) Diabetes Diabetes mellitus type: type 2 Diabetes mellitus inspector subassembly insulin use: with half-way use Diabetes mellitus complication status: with kidney complications Diabetes mellitus complication detail: with chronic kidney disease Chronic kidney disease stage: stage 3 (moderate) Qualified Code(s): E11.22 - Type 2 diabetes mellitus with diabetic chronic kidney disease; N18.3 - Chronic kidney disease, stage 3 (moderate); 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
[2022-07-11] MEDS: LEVOTHYROXINE SODIUM 50 MCG TABLET PO SCH (05:29)
[2022-07-11] MEDS: DOXYCYCLINE HYCLATE 100 MG in DEXTROSE 5% 100 ML IV SCH (05:30)
[2022-07-11] MEDS: ALBUT/IPRATROP 3MG/0.5MG NEB 3 ML VIAL NEB SCH ×3 (07:24→14:54)
[2022-07-11 07:40] LABS: Hematocrit (blood only) 40.2 % (42.0-52.0); Hemoglobin 14.2 g/dl (14.0-18.0); Mean Corpuscular Hemoglobin 31.8 pg (25.0-34.0); Mean Corpuscular Hgb Conc 35.3 g/dL (32.0-36.0); Mean Corpuscular Volume 89.9 fL (80.0-100.0); Mean Platelet Volume 10.1 fL (9.4-12.4); Platelet Count 317 K/uL (130-400); RDW Coefficient of Variation 13.7 % (11.5-14.5); RDW Standard Deviation 45.2 fL (36.4-46.3); Red Blood Count 4.47 M/uL (4.70-6.10); White Blood Count 14.94 K/ul (4.8-10.8)
[2022-07-11 07:53] LABS: BUN Creatinine Ratio 38.6 (10-20); Calcium 8.8 mg/dl (8.6-10.3); Creatinine Clr Calc Pharmacy 28.5 ml/min; Est GFR (African American) 30.5 ml/min; Est GFR (Non-African American) 26.3 ml/min; Potassium 4.5 mmol/L (3.5-5.1)
[2022-07-11] MEDS: guaiFENesin 600 MG TABCR PO SCH (08:20)
[2022-07-11] MEDS: hydrALAZINE HCL 25 MG TAB PO SCH (08:20)
[2022-07-11] MEDS: APIXABAN 2.5 MG TAB PO SCH (08:22)
[2022-07-11] MEDS: ASPIRIN 81 MG ECTAB PO SCH (08:22)
[2022-07-11] MEDS: FLUTICASONE FUROATE 200MCG 14 PUFFS/INHALER INH SCH (08:23)
[2022-07-11] MEDS: UMECLIDINIUM/VILANTEROL 62.5/25MCG 7 PUFFS/INHALER INH SCH (08:23)
[2022-07-11] MEDS: INSULIN ASPART PER UNIT CHARGE SC SCH ×2 (08:36→12:28)
[2022-07-11] MEDS: LANTUS PER UNIT CHARGE SQ SCH (08:39)
--- NOTE | 2022-07-11 09:01 | Nephrology Consultation ---
Date of Consultation July 11, 2022 Assessment & Plan (1) Chronic kidney disease, stage III (moderate): Kidney function stable. BP acceptable. Volume status relatively euvolemic. Continue to hold Bumex. Repeat metabolic profile as an outpatient on Thursday in the [place] office (scheduled follow up with PCP). Follow up with Dr. Westbrook in the clinic within 1-2 weeks of discharge. (2) Community acquired bacterial pneumonia: Clinically improving. Remains on Doxycycline. Plan of care discussed with Dr. Cordero this AM. (3) Diabetic nephropathy: Continue lisinopril as Rx. No changes at this time. History of Present Illness Reason for Consultation: MARJORIE Requesting Physician: Fernando Cordero Attending Physician: Fernando Cordero History of Present Illness Mr. Ford Lynn is an 82-year-old male with chronic kidney disease. The patient was seen and evaluated this morning with his at the bedside. Medical history and plan of care were discussed with Dr. Cordero. At the time of my assessment, Mr. Lynn was feeling very well and hopeful for discharge home. He had spoken to family about transportation home today. He has follow up with his PCP on Thursday. Mr. Lynn has CKD stage G4/A1 with a baseline creatinine of 2.2 mg/dL. Microscopy acellular.Ford follows in the outpatient nephrology clinic with Dr. 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 Pugh 12/17.Renal impairment is attributed to large vessel KIRAN and DKD. 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 Pugh, KIRAN s/p bilateral renal artery stent 12/17 Dr. 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 Ford presented to [facility] on July 05 with fever, congestion, and productive cough. He was experiencing dyspnea with an increased oxygen requirement. Evaluation demonstrating LLL pneumonia. Initially treated with cefepime then converted to Doxycycline. Noted clinical improvement. O2 requirement weaned to b aseline 3 L/min. TTE demonstrating preserved LV function. Volume status appeared slightly hypovolemic. Diuretics held. After recent rise in creatinine as an outpatient following the addition of eusebio nopril, Dr. Westbrook had decreased Bumex to 0.5 mg daily. Ford tolerated the adjustment well. He has not had recent fluid retention or edema. He denies any hypotension, lightheadedness, dizziness, syncope or presyncope. Allergies Allergy/AdvReac Type Severity Reaction Status Date / Time No Known Allergies Allergy Verified 06/09/22 09:40 Home Medications Medication Instructions Recorded Confirmed Type aspirin 81 mg tablet,delayed 81 mg PO Q OTHER DAY 05/23/18 07/05/22 History release insulin regular human 100 unit/mL 12 unit subcut TIDM 02/13/20 07/05/22 History injection solution (Novolin R Regular U-100 Insulin) nitroglycerin 0.4 mg sublingual 0.4 mg sublingual UD PRN chest 03/28/20 07/05/22 Rx tablet (Nitrostat) pain #30 Tabs flash glucose sensor (FreeStyle #1 ea 06/18/20 06/09/22 Rx Maritza 14 Day Sensor kit) Portable Oxygen #1 ea 11/12/20 06/09/22 Rx apixaban 2.5 mg tablet (Eliquis) 2.5 mg PO BID 05/13/21 07/05/22 History rosuvastatin 5 mg tablet 5 mg PO Q2D #90 tabs 05/27/21 07/05/22 Rx alprazolam 0.5 mg tablet 0.5 mg PO DAILY #90 tabs 01/24/22 07/05/22 Rx pen needle, diabetic 32 gauge x #360 ea 02/26/22 06/09/22 Rx 5/16" (Comfort EZ Pen [place]) hydralazine 50 mg tablet 25 mg PO BID 05/07/22 07/05/22 History albuterol sulfate 90 mcg/actuation 2 puff inhalation QID PRN 05/08/22 07/05/22 Rx aerosol inhaler (Ventolin HFA) shortness of breath or wheezing #54 grams fluticasone fur. 200 mcg-umeclid 1 inh inhalation DAILY #3 Inhalers 05/15/22 07/05/22 Rx 62.5 mcg-vilant 25 mcg inhalat.powder (Trelegy Ellipta) pen needle, diabetic 32 gauge x #270 ea 05/21/22 06/09/22 Rx 532" (BD Ultra-Fine [place] Pen Needle) levothyroxine 50 mcg tablet 50 mcg PO DAILY #90 tabs 05/27/22 07/05/22 Rx insulin glargine 100 unit/mL (3 18 unit (0.18 mL) subcut QPM #15 06/10/22 07/05/22 Rx mL) subcutaneous pen (Lantus syringes Solostar U-100 Insulin) guaifenesin 600 mg tablet, 1,200 mg PO Q12 #20 tabs 07/11/22 Rx extended release 12 hr (Mucinex) lisinopril 5 mg tablet 2.5 mg PO DAILY #90 tabs 07/11/22 07/05/22 Rx metoprolol succinate 25 mg 25 mg PO DAILY #180 tabs 07/11/22 07/05/22 Rx tablet,extended release 24 hr Patient History Medical History MARJORIE (acute kidney injury) Anemia Aneurysm of abdominal aorta Benign prostatic hyperplasia with elevated prostate specific antigen (PSA) CAD, multiple vessel Carotid artery stenosis, asymptomatic CHF (congestive heart failure) Chronic kidney disease Chronic kidney disease, stage III (moderate) Chronic obstructive pulmonary disease Community acquired pneumonia Diabetes mellitus, type 2 Diabetic nephropathy Diverticulitis of colon Edema Elevated PSA Elevated troponin Enteritis Herpes zoster Hypercholesterolemia Hyperkalemia Hyperlipidemia Hypertension Hypoxia Male erectile disorder of organic origin Myocardial Infarction Panic disorder without agoraphobia Peripheral vascular disease Pre-operative exam Proteinuria Pulmonary nodule SOB (shortness of breath) Steroid-induced hyperglycemia Tobacco use disorder Uncontrolled type 2 diabetes mellitus Surgical History H/O aortic aneurysm repair History of partial colectomy Stented coronary artery Family History Mother Coronary heart disease COPD (chronic obstructive pulmonary disease) Father Diabetes Brother Unknown family medical history Other Diabetes mellitus type 1 Heart disease Denies family history of Ovarian cancer Prostate cancer Myocardial infarction Breast cancer Colorectal cancer Cancer Social History Smoking Status: Never smoker Tobacco Type: Cigarettes Age Started Using Tobacco: 15; Age Quit Using Tobacco: 70; packs per day: 1; Second Hand Exposure: No; Hx Alcohol Use: No Hx Substance Use: No Preferred Language: Mongolian Communication Ability: Effective Visual Impairment: No Limitations Hearing Ability: Normal Head Sampler Required: No Beliefs That Will Affect Care: None marital status: Current Living Situation: Spouse current occupational status: retired current occupation: Retired from career with [employer] Feels Safe at Home: Yes Childhood Exposure to Second-Hand Smoke: Yes caffeine: Yes Dental Care, Regularly: No Physical Activity Frequency: Does not Exercise Seatbelt Use: always Sunscreen Use: No Assistive Devices: Oxygen - Continuous Review of Systems Review of Systems: All systems reviewed & are unremarkable except as noted in HPI & below Physical Exam Constitutional: well developed; no acute distress Eyes: no scleral abnormality and no corneal abnormality Neck: normal visual inspection and trachea midline Respiratory: normal respiratory effort Auscultation: lungs clear to auscultation bilaterally Cardiovascular: Rate/Rhythm: regular rate Heart Sounds: normal S1 and normal S2 Extremities: no edema Musculoskeletal: Extremities: no cyanosis and no clubbing Skin: + turgor decreased; no jaundice Neurologic: Motor/Sensory: no tremor and no asterixis Psychiatric: Orientation: alert and oriented x 3 Results & Data Vital Signs (Past 12 Hours) Vital Signs Temp Pulse Pulse Resp BP Pulse Ox O2 Del Method 07/11/22 07:25 71 18 96 Nasal Cannula 07/11/22 07:23 95 Nasal Cannula 07/11/22 07:22 36.6 C 108 H 18 140/78 89 L Room Air 07/10/22 21:59 62 07/11/22 05:34 36.5 C 112 H 18 141/76 H 94 Nasal Cannula 07/10/22 23:09 36.4 C L 61 16 117/70 93 Room Air O2 Flow Rate 07/11/22 07:25 3 07/11/22 07:23 3 07/11/22 07:22 07/10/22 21:59 07/11/22 05:34 3 07/10/22 23:09 Laboratory Results Laboratory Results - last 24 hr 07/10/22 07/10/22 07/10/22 10:11 10:11 11:31 WBC 19.08 H RBC 4.50 L Hgb 14.2 Hct 41.6 L MCV 92.4 MCH 31.6 MCHC 34.1 RDW Std Deviation 47.0 H RDW Coeff of Pj 13.7 Plt Count 338 MPV 10.5 Immature Gran % (Auto) 0.8 Neut % (Auto) 82.1 Lymph % (Auto) 10.6 Kendall % (Auto) 6.2 Eos % (Auto) 0.1 Baso % (Auto) 0.2 Neut # (Auto) 15.64 H Lymph # (Auto) 2.03 Kendall # (Auto) 1.19 H Eos # (Auto) 0.02 Baso # (Auto) 0.04 Immature Gran # (Auto) 0.16 Sodium 136 Potassium 4.6 Chloride 105 Carbon Dioxide 20 L Anion Gap 11 BUN 79 H Creatinine 2.22 H Est Cr Clr Drug Dosing 28.8 Est GFR ( Amer) 30.6 Est GFR (Non-Af Amer) 26.4 BUN/Creatinine Ratio 35.6 H Glucose 236 H POC Glucose 197 H Calcium 9.4 Phosphorus 3.7 Magnesium 1.8 Total Bilirubin 0.6 AST 41 H ALT 24 Alkaline Phosphatase 72 C-Reactive Protein 1.49 H Total Protein 7.0 Albumin 3.9 Globulin 3.1 Albumin/Globulin Ratio 1.3 07/10/22 07/10/22 07/11/22 16:28 20:49 07:18 WBC 14.94 H RBC 4.47 L Hgb 14.2 Hct 40.2 L MCV 89.9 MCH 31.8 MCHC 35.3 RDW Std Deviation 45.2 RDW Coeff of Pj 13.7 Plt Count 317 MPV 10.1 Immature Gran % (Auto) Neut % (Auto) Lymph % (Auto) Kendall % (Auto) Eos % (Auto) Baso % (Auto) Neut # (Auto) Lymph # (Auto) Kendall # (Auto) Eos # (Auto) Baso # (Auto) Immature Gran # (Auto) Sodium Potassium Chloride Carbon Dioxide Anion Gap BUN Creatinine Est Cr Clr Drug Dosing Est GFR ( Amer) Est GFR (Non-Af Amer) BUN/Creatinine Ratio Glucose POC Glucose 132 H 176 H Calcium Phosphorus Magnesium Total Bilirubin AST ALT Alkaline Phosphatase C-Reactive Protein Total Protein Albumin Globulin Albumin/Globulin Ratio 07/11/22 07/11/22 07:18 07:40 WBC RBC Hgb Hct MCV MCH MCHC RDW Std Deviation RDW Coeff of Pj Plt Count MPV Immature Gran % (Auto) Neut % (Auto) Lymph % (Auto) Kendall % (Auto) Eos % (Auto) Baso % (Auto) Neut # (Auto) Lymph # (Auto) Kendall # (Auto) Eos # (Auto) Baso # (Auto) Immature Gran # (Auto) Sodium 138 Potassium 4.5 Chloride 109 H Carbon Dioxide 19 L Anion Gap 10 BUN 86 H Creatinine 2.23 H Est Cr Clr Drug Dosing 28.5 Est GFR ( Amer) 30.5 Est GFR (Non-Af Amer) 26.3 BUN/Creatinine Ratio 38.6 H Glucose 112 H POC Glucose 114 H Calcium 8.8 Phosphorus Magnesium Total Bilirubin AST ALT Alkaline Phosphatase C-Reactive Protein Total Protein Albumin Globulin Albumin/Globulin Ratio Diagnostic Findings CT chest diagnostic wo con FINDINGS: Lungs and pleura: Extensive emphysema is seen. Airspace opacity is seen in the left greater than right lower lung. Scattered atelectasis is most prominent in the left midlung. A few scattered pulmonary nodules measure up to 6 mm in the right lower lobe (series 4 image 217) and 8 mm in the left lower lobe (image 269), stable from prior exam. Heart and pericardium: There is cardiomegaly without evidence of pericardial effusion. Vessels: Severe atherosclerotic changes in the aorta and coronary arteries. Mediastinum and merlin: Multifocal mediastinal lymph nodes measure up to 13 mm in diameter. Chest wall and lower neck: Unremarkable. Abdomen: Hyperdense exophytic cyst in the left kidney is noted. Partial visualization of a exophytic right renal cyst as well. Bones: Degenerative changes in the thoracic spine. IMPRESSION: Findings are compatible with pneumonia versus aspiration in the left greater than right lower lung. Scattered pulmonary nodular densities are seen, overall similar to prior exam and dating back to 2019. XR chest 1V portable FINDINGS: Dual lead pacemaker is seen. Cardiomegaly is noted. The aortic arch is calcified. There is prominence and cephalization of the vasculature with Juany B lines seen. Faint airspace opacities in the lower lungs cannot be excluded. IMPRESSION: Moderate pulmonary edema. Cannot exclude bibasilar pneumonia/ aspiration. PG Care Time/CCT Total # of Minutes Spent Total Time Spent with Patient: Total time spent is greater than 50% in coordination of care (as documented) at patient's floor/unit and/or counseling patient: Coding Level of Care Code 04052 IN/OBS CONSULT LVL 4,60M Diagnoses Chronic kidney disease, stage III (moderate) N18.3 Community acquired bacterial pneumonia J15.9 Diabetic nephropathy E11.21
--- NOTE | 2022-07-11 12:41 | Discharge Summary ---
Date of Service July 11, 2022 Admission HPI Per Admitting Provider Ford Lynn is a 82-year-old male with a past medical history of NSTEMI/CAD, CKD 3, type II DM with nephropathy, COPD, complete heart block, obesity, former tobacco use who presents to the emergency department with 1 day of generalized illness, shortness of breath, and inability to ambulate due to severe shortness of breath. He has had a mild nonproductive cough, chills, body aches, and has been feeling feverish. No diarrhea/constipation, nausea, vomiting, abdominal pain, syncope. Has chronic respiratory failure with 3 L of baseline oxygen In the ER he is tachycardic, tachypneic, with borderline fever requiring 6 L of oxygen to maintain SPO2 greater than 90%. His chest x-ray shows moderate pulmonary edema with faint airspace opacities from which pneumonitis/pneumonia cannot be ruled out. He has a leukocytosis of 11.27, creatinine baseline of around 2.3 with admitting creatinine of 2.2, lactate of 2.0, elevated high- sensitivity troponin of 74.7, and a negative procalcitonin. Respiratory bio fire is negative. BP 80s improved post fluids. Full 30cc/kg sepsis cobb snot ordered due to reduced EF and clinical responsbile. At bedside: Ford reports yesterday morning he felt more tired and short of breath and then very very weak walking to the bathroom. DOes not usually use O2 going to the bathroom, but went to walk to the BR and had weakness and tightness in his chest. Temp yesterday 100.4*F, took tylenol in the ER but none this mronign at home. Thinks he started to feel weak 2-3 days ago, but notes he intermittently had not felt well in the last week. Pt notes he did get his pneumonia shots. Had had congestion/chest tightness last 2 days, but tightness going to the bathroom felt different. This has resolved/improved after 30 minutes while on oxygen. Peeing normally Has some chills and shakes which ar enew LEgs 'way down from normal.' Has been on bumex at home Apixaban 2.5mg BID for Medical History: Reviewed Medications: Reviewed Surgical History: Reviewed Family history: Reviewed Allergies: Reviewed Social History: Reviewed Code Status: Full code Principal Diagnosis Community bacterial pneumonia Discharge Exam Lungs are decreased at the bases with poor air movements cardiac is regular Discharge Data Allergies Allergy/AdvReac Type Severity Reaction Status Date / Time No Known Allergies Allergy Verified 07/17/22 10:44 Consultations 07/05/22 13:16 ED Decision to Admit Stat 07/10/22 17:41 Consult Nephrology Routine Ordered Studies 07/06/22 08:52 CT chest diagnostic wo con Urgent Hospital Course (1) Community acquired bacterial pneumonia: sepsis secondary to LLL pneumonia, sepsis resovled Acute/unstable - high risk - Treated with Cefepime in ED and underlying severe COPD, changed abx to Doxycycline 100mg BID for atypical coverage - Sputum and blood cultures negative to date - CT chest w/o contrast obtained this 07/06 c/w LLL pna - Added Duonebs and Mucinex on 07/06 - Continue incentive spirometer and flutter valve - Given a dose of Solumedrol 125mg IV x1 on 07/08 and added chest percussion (with vest), prednisone tapering dose po Acute Kidney Injury: BUN appears higher, consulted nephro. will repeat blood work within a week and followup with Nephrology as an outpatient (2) Respiratory failure with hypoxia: Acute on chronic/unstable - high risk - Chronic respiratory failure w/ hypoxia secondary to severe/advanced COPD - Chronically on 3L of O2 at rest and goes up to 4L with activity per last pulmonology note, follows with Dr. Lynn Coyne QIDR and q2prn dyspnea/wheezing - Continue O2 to maintain sats 88-92%, cpatient is back to his baseline (3) Elevated troponin: Acute/unstable - high risk - H/o multivessel CAD, diastolic CHF, paroxysmal afib, HTN & Third degree heart block s/p PPM, follows with Dr. Dubois - Reviewed last cardiology note from visit with Dr. Dubois in March 2022 - Elevated hs trop on admit of 74.7, trended --> 108.3 --> 103.9 --> 98.2 - Suspect demand ischemia in the setting of a/c respiratory failure with hypoxia - Continue ASA, Rosuvastatin, Toprol XL, Hydralazine, Lisinopril, and Eliquis - Echocardiogram ordered/completed: LV systolic fxn low normal, EF 50-55%, no regional WMA, atypical wall motion abnormality may reflect PPM activation, R ventricle normal in size and function. Mild to moderate MR. RVSP is normal. (4) Diabetes: Chronic/unstable Basal bolus SSI changes ssi and increased basal rate, one time dose of NPH Type II DM diet (5) Chronic kidney disease, stage III (moderate): Chronic/stable - Baseline creatinine 2.2, reviewed chemistry panel this AM, creatinine stable at 2.21 - Follows with Dr. Westbrook, reviewed last note from 06/04/22 visit - Plan Treatment as outlined above. PT/OT eval--suggests may need rehab with emphasis on pulmonary rehab. Total Time Total Time Spent Total Time Spent (In Minutes): 32 Discharge Plan Discharge Items Patient Disposition: Home - Home Health Services Reason For Visit: ?PNA, HYPOTENSION, CHEST PAIN Discharge Diagnosis: SOB Activity: Resume your previous activity Non-emergency contact: Primary Care Provider Call non-emergency contact if: you have any medication questions Follow-up/Referrals: Chris Westbrook MD [Physician] - 07/14/22 2:30 pm Gene Calvo MD [Primary Care Provider] - 07/15/22 1:00 pm (Will be seen by Dr. Keith Babb) Diet: Carb Consistent or DM2 and Heart Healthy Addtl Attending Provider Instructions: Good afternoon Mr. Lynn, You improved with steroids and antibiotics. Will recommend you keep your oxygen level at 88-92% In regards to your kidney numbers: will recommend you hold your bumex. Please go to the [place] office to get blood work for a BMP. Labs Thursday in the [place] office. Follow up with [facility] as an outpatient later in the week Followup with your Primary care doctor within 10 days. It was a pleasure seeing you. Hope you enjoy Thursday. Kindest regards, Fernando Cordero Pending Studies at Discharge: No Stand-Alone Forms: My [employer], Smoking Cessation Medications and DC Order Prescriptions: Continued nitroglycerin [Nitrostat] 0.4 mg tablet, sublingual 0.4 mg Sublingual UD PRN (Reason: chest pain) Qty: 30 4RF Rx Instructions: NEEDED FOR CHEST PAIN : ONE TABLET UNDER THE TONGUE EVERY 5 MINUTES UP TO 3 DOSES. alprazolam 0.5 mg tablet 0.5 mg PO DAILY Qty: 90 1RF Rx Instructions: Ongoing therapy, Dr. Calvo AMANDA# [id number] (DME) Comfort EZ Pen [place] 32 gauge x 5/16" needle See Rx Instructions .Route Qty: 360 3RF Rx Instructions: Test 4 times daily Trelegy Ellipta 200-62.5-25 mcg blister with device 1 inh inhalation DAILY Qty: 3 3RF (DME) pen needle, diabetic [BD Ultra-Fine Madison Pen Needle] 32 gauge x 5/32" needle See Rx Instructions .Route Qty: 270 3RF Rx Instructions: test 4 times per day levothyroxine 50 mcg tablet 50 mcg PO DAILY Qty: 90 3RF insulin glargine [Lantus Solostar U-100 Insulin] 100 unit/mL (3 mL) insulin pen 18 unit subcut QPM Qty: 15 3RF Eliquis 2.5 mg tablet 2.5 mg PO BID Novolin R Regular U-100 Insuln 100 unit/mL solution 12 unit subcut TIDM Rx Instructions: plus sliding scale (DME) Portable Oxygen Misc See Rx Instructions .MEDSUPPLY Qty: 1 0RF Rx Instructions: Oxygen 4 liters continuous with portable concentrator. CLARISSA 99 (DME) FreeStyle Maritza 14 Day Sensor Kit See Rx Instructions .ROUTE .MEDSUPPLY Qty: 1 0RF Rx Instructions: change sensor every 2 weeks albuterol sulfate [Ventolin HFA] 90 mcg/actuation HFA aerosol inhaler 2 puff inhalation QID PRN (Reason: shortness of breath or wheezing) Qty: 54 3RF hydralazine 50 mg tablet 25 mg PO BID aspirin 81 mg tablet,delayed release (DR/EC) 81 mg PO Q OTHER DAY Changed lisinopril 5 mg tablet 2.5 mg PO DAILY Qty: 90 3RF metoprolol succinate 25 mg tablet extended release 24 hr 25 mg PO DAILY Qty: 180 3RF Discontinued ezetimibe 10 mg tablet 10 mg PO DAILY Qty: 90 3RF amlodipine 10 mg tablet 10 mg PO HS Qty: 90 3RF bumetanide 0.5 mg tablet 1 mg PO DAILY No Action rosuvastatin 5 mg tablet 5 mg PO DAILY bumetanide 0.5 mg tablet 0.5 mg PO DAILY PRN (Reason: Fluid Retention) Tradjenta 5 mg tablet PO Hold Instructions: Pt doesn't have and has never taken doxycycline hyclate 100 mg tablet 100 mg PO BID Qty: 14 0RF Discharge Orders: Discharge Order (Routine); Ordered 07/11/22 Ordered By: Fernando Cordero Admission Data Admit Date/Time: 07/05/22 15:04 Attending Provider: Fernando Cordero Admit Provider: Juan Avina Primary Care Provider: Gene Calvo Other Providers: Juan Avina ; Chris Westbrook ; Yisel Cook ; Rakan Santamaria ; Nat Cortez Other Interventions: Discharge Summary Assessment (RN) Last Done: 07/11/22 16:55 Coding Level of Care Code 84405 INP/OBS DISCH >30 MIN Diagnoses Community acquired bacterial pneumonia J15.9 Respiratory failure with hypoxia J96.01 Chronicity: acute Elevated troponin R77.8 Diabetes E11.22; N18.3; Z79.4 Chronic kidney disease stage: stage 3 (moderate) Diabetes mellitus complication detail: with chronic kidney disease Diabetes mellitus complication status: with kidney complications 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
== END 2022-07-11 16:59 | disposition home health service (06) | DRG 871 ==
LOC: ED 11:17 → SUATTDRO 15:04 → 4W 15:04

== ENCOUNTER 2023-07-21 06:13 | Inpatient (IN) ==
--- NOTE | 2023-07-21 06:35 | Emergency Department Note ---
Impression & Plan Hypoxia ADMIT ED Provider Note HPI: History obtained from patient. The patient is a 83-year-old gentleman who presents the emergency department with chief complaint of upper back pain and shortness of breath. Patient states that his symptoms began last night around when he went to bed and persisted throughout the evening. On arrival here to the ED the patient was noted to be hypoxic at 88% despite his 3 L nasal cannula oxygen and therefore his oxygen was increased to 5 L with good improvement. Patient states he has pain in his upper back but denies any chest pain. Patient is otherwise hemodynamically stable on arrival, he is afebrile on arrival. ROS: - Per HPI Differential Diagnosis: Acute CHF exacerbation with hypoxia, COPD exacerbation, pneumonia, pleural effusion, acute coronary syndrome, pulmonary embolism, aortic dissection, musculoskeletal back pain, amongst other potential pathologies. *Outpatient medications and allergy history reviewed. PE: General: Alert HEENT: Normocephalic, trachea midline Eyes: Extraocular eye movement is intact, no scleral erythema Pulmonary: Diminished bilateral breath sounds with slight tachypnea Cardio: Regular rate and rhythm GI: Abdomen is soft to palpation : No suprapubic tenderness MSK: No evidence of trauma or malformation of the extremities, no edema Skin: No evidence of rash Neuro: Alert, no focal deficits Psychiatric: Cooperative INDEPENDENT INTERPRETATIONS: hall monitor: (As interpreted by myself): - An order was placed for continuous cardiac monitoring - Patient was noted to be in paced rhythm with a rate of 90 EKG: (As interpreted by myself): Rate: 92 Rhythm: Normal sinus rhythm Intervals: QRS 154 ms, QTc 539 ms, [place] within normal limits ST changes: No ST elevation Time: 0626 Chest x-ray: (As interpreted by myself): Pulmonary edema Interventions provided in ED: -IV Lasix, aspirin Medical Decision Making: IV was established and lab work obtained, patient was placed on property assessment monitor. Lab work shows no leukocytosis, hemoglobin is normal, platelet count is normal, CMP does not show any critical findings, baseline chronic kidney disease with creatinine of 2.12, no critical electrolyte abnormalities are noted. BNP is noted to be elevated at 3572, troponin is 126, patient states he has some mild chest "pressure" but denies any chest pain. Troponin appears to be at baseline. Patient was given IV diuresis for chest x-ray findings of pulmonary edema with elevated BNP in addition to increased oxygen requirement. I discussed all the above findings with the patient and his at the bedside, at this time I do believe the patient would benefit from admission for diuresis, trending of troponin level, and further care. Patient expressed an agreement understanding. Case was discussed with the on-call admitting [facility] ([facility] Powell[facility] and the patient was placed for admission in stable condition. Consultants/Discussions held with other healthcare providers: -Hospitalist, Dr. Wilks Disposition discussion held by myself with: -Patient and at bedside * CRITICAL CARE TIME: ( 36 ) minutes -Stabilization of patient with hypoxia at 88% despite nasal cannula oxygen requiring increasing titration of oxygen for correction, time spent at the bedside, interpretation of EKG and other diagnostic studies, discussion with other healthcare providers and arrangement of admission. Diagnosis: 1. Acute CHF exacerbation with hypoxia 2. Elevated high-sensitivity troponin 3. Chronic kidney disease 4. Elevated BNP 5. Nonspecific chest pressure, acute 6. Upper back pain, acute Disposition: Admission Dieudonne Marcos DO Emergency Medicine Past Med/Surg History Medical History SOB (shortness of breath) Chronic kidney disease, stage 4 (severe) SOB (shortness of breath) CHF (congestive heart failure) Hypoxia Community acquired pneumonia Elevated troponin MARJORIE (acute kidney injury) Tobacco use disorder Uncontrolled type 2 diabetes mellitus Steroid-induced hyperglycemia Pulmonary nodule Proteinuria Pre-operative exam Panic disorder without agoraphobia Male erectile disorder of organic origin Hyperkalemia Hypercholesterolemia Herpes zoster Enteritis Elevated PSA Edema Diverticulitis of colon Diabetic nephropathy Chronic kidney disease, stage III (moderate) Carotid artery stenosis, asymptomatic CAD, multiple vessel Benign prostatic hyperplasia with elevated prostate specific antigen (PSA) Aneurysm of abdominal aorta Anemia Chronic kidney disease Diabetes mellitus, type 2 Chronic obstructive pulmonary disease Peripheral vascular disease Myocardial Infarction Hyperlipidemia Non-ST elevation NC (NSTEMI) Hypertension Surgical History History of partial colectomy H/O aortic aneurysm repair Stented coronary artery Family History Mother Coronary heart disease COPD (chronic obstructive pulmonary disease) Father Diabetes Brother Unknown family medical history Other Diabetes mellitus type 1 Heart disease Denies family history of Ovarian cancer Prostate cancer Myocardial infarction Breast cancer Colorectal cancer Cancer Social History Smoking Status: Never smoker Tobacco Type: Cigarettes Age Started Using Tobacco: 15; Age Quit Using Tobacco: 70; packs per day: 1; Second Hand Exposure: No; Do You Dip or Chew Tobacco: No; Hx Alcohol Use: No Hx Substance Use: No Preferred Language: Greek Communication Ability: Effective Visual Impairment: No Limitations Hearing Ability: Normal Concert Pianist Required: No Beliefs That Will Affect Care: None marital status: Current Living Situation: Spouse current occupational status: retired current occupation: Retired from career with [employer] Feels Safe at Home: Yes Childhood Exposure to Second-Hand Smoke: Yes Diet: regular caffeine: Yes Dental Care, Regularly: No Physical Activity Frequency: Does not Exercise Seatbelt Use: always Sunscreen Use: No Assistive Devices: Denture - Upper and Oxygen - Continuous Allergies Allergies Allergy/AdvReac Type Severity Reaction Status Date / Time No Known Allergies Allergy Verified 07/16/23 10:18 Home Meds Home Medications Medication Instructions Recorded Confirmed aspirin 81 mg tablet,delayed 81 mg PO Q OTHER DAY 05/23/18 07/16/23 release apixaban 2.5 mg tablet (Eliquis) 2.5 mg PO BID 05/13/21 07/16/23 flash glucose sensor (FreeStyle 01/05/23 07/16/23 Maritza 14 Day Sensor kit) insulin regular human 100 unit/mL 12 unit subcut TIDM 01/05/23 07/16/23 injection solution (Novolin R Regular U-100 Insulin) mexiletine 150 mg capsule 150 mg PO Q12H antiarrhythmic 06/30/23 07/16/23 Previous Rx's Medication Instructions Recorded nitroglycerin 0.4 mg sublingual 0.4 mg sublingual UD PRN chest 03/28/20 tablet (Nitrostat) pain #30 Tabs flash glucose sensor (FreeStyle #1 ea 06/18/20 Maritza 14 Day Sensor kit) Portable Oxygen E0431 #1 ea 11/12/20 fluticasone fur. 200 mcg-umeclid 1 inh inhalation DAILY #3 Inhalers 05/15/22 62.5 mcg-vilant 25 mcg inhalat.powder (Trelegy Ellipta) rosuvastatin 5 mg tablet 5 mg PO DAILY #90 tabs 08/04/22 alprazolam 0.5 mg tablet 0.5 mg PO BID PRN anxiety #180 tabs 12/31/22 carvedilol 12.5 mg tablet 12.5 mg PO BID #180 tabs 02/20/23 pen needle, diabetic 32 gauge x #100 ea 04/29/23 5/32" (BD Ultra-Fine Madison Pen Needle) levothyroxine 50 mcg tablet 50 mcg PO DAILY #90 tabs 04/30/23 bumetanide 1 mg tablet 2 mg (2 x 1 mg) PO QAM #180 tabs 05/06/23 insulin glargine 100 unit/mL (3 18 unit (0.18 mL) subcut QPM #15 05/06/23 mL) subcutaneous pen (Lantus syringes Solostar U-100 Insulin) albuterol sulfate 90 mcg/actuation 2 puff inhalation QID PRN 06/22/23 aerosol inhaler (Ventolin HFA) shortness of breath or wheezing #54 grams Results & Data (ED) Vital Signs Vital Signs - 24 hr 07/21/23 06:17 07/21/23 06:18 07/21/23 06:18 Temperature 36.9 C Temperature Source Temporal Artery Scan Pulse Rate 90 Pulse Rhythm Respiratory Rate 20 Respiratory Effort / Characteristics Non-Labored Spontaneous Accessory Muscle Use Labored Short of Breath SOB on Exertion Respiratory Depth Normal Respiratory Pattern Regular Blood Pressure 159/104 H Blood Pressure Mean 122 Blood Pressure Position Sitting Pulse Oximetry 83 L 80 L Oxygen Delivery Method Nasal Cannula Nasal Cannula Nasal Cannula Oxygen Flow Rate 3 Sepsis Recent Fever Within 48 Hours No Sepsis New/Unexplained Change in Mental Status No Sepsis Action Taken by Nursing No Action Required Oxygen Flow Rate - Titration 6 Pulse Oximetry Post Tiitration 95 07/21/23 06:18 07/21/23 06:26 07/21/23 06:29 Temperature Temperature Source Pulse Rate 93 H Pulse Rhythm Respiratory Rate Respiratory Effort / Characteristics SOB on Exertion Respiratory Depth Normal Respiratory Pattern Blood Pressure Blood Pressure Mean Blood Pressure Position Pulse Oximetry Oxygen Delivery Method Nasal Cannula Nasal Cannula Oxygen Flow Rate 4 Sepsis Recent Fever Within 48 Hours Sepsis New/Unexplained Change in Mental Status Sepsis Action Taken by Nursing Oxygen Flow Rate - Titration Pulse Oximetry Post Tiitration 07/21/23 06:29 07/21/23 06:32 Temperature Temperature Source Pulse Rate 92 H Pulse Rhythm Regular Respiratory Rate 18 Respiratory Effort / Characteristics Respiratory Depth Respiratory Pattern Blood Pressure Blood Pressure Mean Blood Pressure Position Pulse Oximetry 88 L Oxygen Delivery Method Nasal Cannula Nasal Cannula Oxygen Flow Rate 3 3 Sepsis Recent Fever Within 48 Hours Sepsis New/Unexplained Change in Mental Status Sepsis Action Taken by Nursing Oxygen Flow Rate - Titration Pulse Oximetry Post Tiitration Laboratory Data 07/21/23 06:29 07/21/23 06:29 Lab Results 07/21/23 07/21/23 Range/Units 06:29 07:01 WBC 10.70 (4.8-10.8) K/ul RBC 4.73 (4.70-6.10) M/uL Hgb 15.3 (14.0-18.0) g/dl Hct 46.7 (42.0-52.0) % MCV 98.7 (80.0-100.0) fL MCH 32.3 (25.0-34.0) pg MCHC 32.8 (32.0-36.0) g/dL RDW Std Deviation 56.2 H (36.4-46.3) fL RDW Coeff of Pj 15.4 H (11.5-14.5) % Plt Count 219 (130-400) K/uL MPV 10.5 (9.4-12.4) fL Immature Gran % (Auto) 0.6 % Neut % (Auto) 65.4 % Lymph % (Auto) 21.1 % [place] % (Auto) 9.5 % Eos % (Auto) 2.1 % Baso % (Auto) 1.3 % Neut # (Auto) 6.99 H (1.40-6.50) K/uL Lymph # (Auto) 2.26 (1.20-3.40) K/uL [place] # (Auto) 1.02 H (0.11-0.59) K/uL Eos # (Auto) 0.23 (0.00-0.50) K/uL Baso # (Auto) 0.14 (0.00-0.20) K/uL Immature Gran # (Auto) 0.06 (0.01-0.20) K/uL VBG pH 7.44 H (7.36-7.41) VBG pCO2 44 (38-50) mmHg VBG pO2 48 mmHg VBG HCO3 30 mmol/L VBG O2 Saturation 77.3 % VBG Base Excess 5.0 mEq/L Sodium 137 (136-145) mmol/L Potassium 4.4 (3.5-5.1) mmol/L Chloride 98 (98-107) mmol/L Carbon Dioxide 31 (21-32) mmol/L Anion Gap 8 (3-11) BUN 45 H (6-23) mg/dl Creatinine 2.12 H (0.6-1.4) mg/dl Est Cr Clr Drug Dosing 29.8 ml/min Est GFR ( Amer) 32.2 ml/min Est GFR (Non-Af Amer) 27.7 ml/min BUN/Creatinine Ratio 21.2 H (10-20) Glucose 174 H (70-99(Fasting)) mg/dl Calcium 9.3 (8.6-10.3) mg/dl Total Bilirubin 1.0 (0.2-1.0) mg/dl AST 33 (13-39) U/L ALT 21 (7-52) U/L Alkaline Phosphatase 113 H (34-104) U/L Troponin I High Sens 126.3 H* (0-20) pg/ml B-Natriuretic Peptide 3572 H (0-100) pg/ml Total Protein 7.2 (6.0-8.3) gm/dl Albumin 3.8 (3.4-5.0) gm/dl Globulin 3.4 (2.5-4.0) gm/dl Albumin/Globulin Ratio 1.1 (0.9-2) Lipase 16 (11-82) U/L Administered Medications Discontinued Medications Aspirin (Aspirin Chew 324 Mg) 324 mg PO NOW STA Stop: 07/21/23 07:24 Last Admin: 07/21/23 07:35 Dose: 324 mg Documented By: DIANA Furosemide (Furosemide 40 Mg/4 Ml Vial) 40 mg IV ONE ONE Stop: 07/21/23 07:15 Last Admin: 07/21/23 07:35 Dose: 40 mg Documented By: DIANA Imaging Data Radiologist's Impression: Chest X-Ray 07/21/23 06:18 XR chest 1V portable CLINICAL HISTORY: Chest pain, nonspecific COMPARISON STUDY: Chest CT September 22, 2022. Chest radiograph January 28, 2023. FINDINGS: A left subclavian biventricular pacer is in place. Cardiomegaly is unchanged. There are trace bilateral pleural effusions. Emphysema is noted. Left mid to upper lung nodules are unchanged and favor scarring. There is mild interstitial thickening. No consolidation is identified to suggest pneumonia. IMPRESSION: 1. Cardiomegaly. Mild interstitial pulmonary edema with trace bilateral pleural effusions. 2. No consolidation to suggest pneumonia. ACT 112: Negative or not required by law. Electronically signed by: Kye Reina M.D. 07/21/2023 6:51 AM Discharge Plan Visit Data Chief Complaint: Chest Pain Stated Complaint: CHEST PAIN,HIGH BLOOD PRESSURE ED Provider: Dieudonne Marcos Discharge Problem: Hypoxia Forms Stand Alone Forms: [facility] [place] Prescriptions Prescriptions: No Action nitroglycerin [Nitrostat] 0.4 mg tablet, sublingual 0.4 mg Sublingual UD PRN (Reason: chest pain) Qty: 30 4RF Rx Instructions: NEEDED FOR CHEST PAIN : ONE TABLET UNDER THE TONGUE EVERY 5 MINUTES UP TO 3 DOSES. Trelegy Ellipta 200-62.5-25 mcg blister with device 1 inh inhalation DAILY Qty: 3 3RF rosuvastatin 5 mg tablet 5 mg PO DAILY Qty: 90 3RF alprazolam 0.5 mg tablet 0.5 mg PO BID PRN (Reason: anxiety) Qty: 180 1RF Rx Instructions: Ongoing therapy, Dr. Calvo AMANDA# [id number] carvedilol 12.5 mg tablet 12.5 mg PO BID Qty: 180 1RF Rx Instructions: must administer with a meal/food (DME) pen needle, diabetic [BD Ultra-Fine Madison Pen Needle] 32 gauge x 5/32" needle See Rx Instructions .Route Qty: 100 0RF Rx Instructions: use 4 per day with insulin injections levothyroxine 50 mcg tablet 50 mcg PO DAILY Qty: 90 3RF bumetanide 1 mg tablet 2 mg PO QAM Qty: 180 3RF insulin glargine [Lantus Solostar U-100 Insulin] 100 unit/mL (3 mL) insulin pen 18 unit subcut QPM Qty: 15 3RF albuterol sulfate [Ventolin HFA] 90 mcg/actuation HFA aerosol inhaler 2 puff inhalation QID PRN (Reason: shortness of breath or wheezing) Qty: 54 3RF Eliquis 2.5 mg tablet 2.5 mg PO BID Novolin R Regular U100 Insulin 100 unit/mL solution 12 unit subcut TIDM Rx Instructions: plus sliding scale Breakfast 12-Lunch12 Dinner 8 (DME) Portable Oxygen E0431 Misc See Rx Instructions .MEDSUPPLY Qty: 1 0RF Rx Instructions: Oxygen 4 liters continuous with portable concentrator. CLARISSA 99 (DME) FreeStyle Maritza 14 Day Sensor Kit See Rx Instructions .Route Rx Instructions: change every 14 days (DME) FreeStyle Maritza 14 Day Sensor Kit See Rx Instructions .ROUTE .MEDSUPPLY Qty: 1 0RF Rx Instructions: change sensor every 2 weeks mexiletine 150 mg capsule 150 mg PO Q12H aspirin 81 mg tablet,delayed release (DR/EC) 81 mg PO Q OTHER DAY Referrals Referrals: Gene Calvo MD [Primary Care Provider] -
--- NOTE | 2023-07-21 06:52 | XRay Report ---
XR chest 1V portable CLINICAL HISTORY: Chest pain, nonspecific COMPARISON STUDY: Chest CT September 22, 2022. Chest radiograph January 28, 2023. FINDINGS: A left subclavian biventricular pacer is in place. Cardiomegaly is unchanged. There are tra ce bilateral pleural effusions. Emphysema is noted. Left mid to upper lung nodules are unchanged and favor scarring. There is mild interstitial thickening. No consolidation is identified to suggest pneu monia. IMPRESSION: 1. Cardiomegaly. Mild interstitial pulmonary edema with trace bilateral pleural effusions. 2. No consolidation to suggest pneumonia. ACT 112: Negative or not required by law. Electronically signed by: Kye Reina M.D. 07/21/2023 6:51 AM
[2023-07-21 06:55] LABS: Basophils # (auto) 0.14 K/uL (0.00-0.20); Basophils % (auto) 1.3 %; Eosinophils # (auto) 0.23 K/uL (0.00-0.50); Eosinophils % (auto) 2.1 %; Hematocrit (blood only) 46.7 % (42.0-52.0); Hemoglobin 15.3 g/dl (14.0-18.0); Immature Granulocytes # (auto) 0.06 K/uL (0.01-0.20); Immature Granulocytes % (auto) 0.6 %; Lymphocytes # (auto) 2.26 K/uL (1.20-3.40); Lymphocytes % (auto) 21.1 %; Mean Corpuscular Hemoglobin 32.3 pg (25.0-34.0); Mean Corpuscular Hgb Conc 32.8 g/dL (32.0-36.0); Mean Corpuscular Volume 98.7 fL (80.0-100.0); Mean Platelet Volume 10.5 fL (9.4-12.4); Monocytes # (auto) 1.02 K/uL (0.11-0.59); Monocytes % (auto) 9.5 %; Neutrophils # (auto) 6.99 K/uL (1.40-6.50); Neutrophils % (auto) 65.4 %; Platelet Count 219 K/uL (130-400); RDW Coefficient of Variation 15.4 % (11.5-14.5); RDW Standard Deviation 56.2 fL (36.4-46.3); Red Blood Count 4.73 M/uL (4.70-6.10)
[2023-07-21 07:09] LABS: Albumin Globulin Ratio 1.1 (0.9-2); Albumin Level 3.8 gm/dl (3.4-5.0); BUN Creatinine Ratio 21.2 (10-20); Calcium 9.3 mg/dl (8.6-10.3); Creatinine Clr Calc Pharmacy 29.8 ml/min; Est GFR (African American) 32.2 ml/min; Est GFR (Non-African American) 27.7 ml/min; Globulin 3.4 gm/dl (2.5-4.0); Potassium 4.4 mmol/L (3.5-5.1); Total Protein 7.2 gm/dl (6.0-8.3)
[2023-07-21 07:11] LABS: HCO3 VBG 30 mmol/L; Oxygen Saturation VBG 77.3 %; PCO2 VBG 44 mmHg (38-50); PO2 VBG 48 mmHg; pH VBG 7.44 (7.36-7.41)
[2023-07-21 07:20] LABS: Troponin I High Sensitivity 126.3 pg/ml (0-20)
[2023-07-21] MEDS: ASPIRIN CHEW 324 MG PO STA (07:35)
[2023-07-21] MEDS: FUROSEMIDE 40 MG/4 ML VIAL IV ONE (07:35)
--- OUTSIDE RECORDS SUMMARY | 2023-07-21 09:10 | External Medical Summary | Continuity of Care Document ---
Author Name Unknown Organization [facility] [address] [facility] [address] Address [address], [place] [id number] Care Team Providers Care Work Counselor Name Role Phone Gene Calvo Primary Care Physician [phone] [id number] Date(s): 07/02/23 - 07/02/[address], [address] [place] [address] [phone] Discharge Disposition: Home or Self Care Attending Physician: DO Dubois Jason D Referring Physician: DO Dubois Jason D Allergies, Adverse Reactions, Alerts Substance Reaction Severity Status furosemide Muscle spasms of head AND/OR neck Mild Active pravastatin myalgias Active Immunizations Given and Recorded Vaccine Date Status Refusal Reason tetanus/diphtheria/pertuss, acel (Tdap) 03/04/23 G iven Medications Albuterol (Eqv-ProAir HFA) Start: 04/19/20 9:55:00 EST, 2 puff, inhaled, q6h, PRN: wheezing Start Date: 04/19/20 Status: Ordered ALPRAZolam 0.5 mg oral tablet, extended release Start: 10/14/19 17:09:00 EDT, 1 tab, PO, Daily, Disp# 14 tab, Refills: 0, Pharmacy: [id number] [place] [address] Start Date: 10/14/19 Status: Ordered aspirin 81 mg oral enteric coated tablet Start: 06/04/11 14:40:00 EST, 1 tab, PO, q48h Start Date: 06/04/11 Status: Ordered Bumex 1 mg oral tablet Start: 04/19/20 10:29:00 EST, 2 tab, PO, Daily, Disp# 45 tab, Refills: 3, Pharmacy: [id number] [place] [address] Start Date: 04/19/20 Status: Ordered carvedilol 12.5 mg oral tablet Start: 05/08/23 16:45:00 EST, 1 tab, PO, bid, Disp# 180 tab, Refills: 3, CANCEL 25mg tablets, Note to Pharmacy: CANCEL 25mg tablets, Pharmacy: [facility] Start Date: 05/08/23 Status: Ordered Eliquis 2.5 mg oral tablet Start: 04/07/23 10:02:00 EST, 1 tab, PO, bid, Disp# 180 tab, Refills: 3, Pharmacy: [facility] Start Date: 04/07/23 Status: Ordered HumuLIN Regular Vial 100 units/mL injectable solution Start: 02/16/20 10:37:00 EST, See Instructions, 12 units subq for breakfast and lunch, 8 units for supper. Additional units for blood glucose readings TID with meals Start Date: 02/16/20 Status: Ordered inhaler spacer Start: 05/25/20 14:06:00 EST, See Instructions, Disp# 1 each, Refills: 0, inhaler spacer as directed Start Date: 05/25/20 Status: Ordered Lantus Solostar Pen 100 units/mL subcutaneous solution Start: 03/07/19 15:24:00 EST, 22 unit =, subQ, qhs, Disp# 15 mL, Refills: 3, other Start Date: 03/07/19 Status: Ordered levothyroxine 25 mcg (0.025 mg) oral tablet Start: 03/07/19 14:50:00 EST, 50 mcg =, PO, Daily Start Date: 03/07/19 Status: Ordered mexiletine 150 mg oral capsule Start: 05/08/23 17:05:00 EST, 1 cap, PO, q12h, Disp# 60 cap, Refills: 11, Pharmacy: [id number] Start Date: 05/08/23 Status: Ordered nitroglycerin 0.4 mg sublingual tablet Start: 08/09/15 17:32:00, 1 tab, SL, q5min, Disp# 30 tab, Refills: 3, PRN: as needed for chest pain, Pharmacy: [facility]/pharmacy #[id number] Start Date: 08/09/15 Stop Date: 12/07/15 Status: Ordered rosuvastatin 5 mg oral tablet Start: 10/03/19 13:01:00 EDT, 1 tab, PO, q48h Start Date: 10/03/19 Status: Ordered Trelegy Ellipta 200 mcg-62.5 mcg-25 mcg/inh inhalation powder Start: 05/24/20 14:18:00 EST, 1 puff, inhaled, Daily Start Date: 05/24/20 Status: Ordered Vitamin D3 25 mcg (1000 intl units) oral capsule Start: 05/06/23 8:30:00 EST, See Instructions, 2 cap PO Daily Start Date: 05/06/23 Status: Ordered Problem List Condition Confirmation Course Effective Dates Status Health Status Informant AAA (abdominal aortic aneurysm) Confirmed Active Abdominal aortic aneurysm Confirmed Active ANXIETY Confirmed Active Asthenia Confirmed Active Afib Confirmed Active Carotid stenosis Confirmed Active Carotid bruit present Confirmed Active COPD with hypoxia Confirmed Active Chronic renal impairment Confirmed Active Coronary arteriosclerosis Confirmed Active Coronary stent patent Confirmed Active Diabetes mellitus type II Confirmed Active Diarrhea Confirmed Active Disorder of artery Confirmed Active DiverticulITIS Confirmed Active Fever Confirmed Active H/O: kidney disease Confirmed Active H/O: major vascular surgery Confirmed Active HTN (hypertension) Confirmed Active Hypercholesterolemia Confirmed Active Preoperative state Confirmed Active Renal artery stenosis Confirmed Active Weight disorder Confirmed Active Procedures Procedure Date Related Diagnosis Body Site Status Bilateral Renal angiogram w/ o intervention 12/08/19 Completed Renal Artery Angio with NON DESTRUCTIVE TESTING TECHNICIAN/Stents 1 01/03/13 Completed PEVAR Repair 08/27/11 Completed Colon Resection Completed Hemorrhoidectomy Complete d S/P AAA repair Completed 1Bilateral Social History Social History Type Response Tobacco Former smoker, 1 per day. 59 year(s). Smoking Status Former Smoker, quit > 1 yr Sex Male Patient Care team information Care Team Personnel Name: MD Lubna, Gene Clemente Position: Referring DIRECT Member Role: Primary Care Provider Address: Address: [address] [place] [address] Name: LYNDON Steward Lynn Position: Physician Die Cast Die Maker Exempt - Vasc Surg Member Role: Lifetime Relationship Address: Address: [address] [place] [id number] Care Team Related Persons Name: TETE AGARWAL Address: home [address] [facility], [id number] Name: ROMERO AGARWAL Address: home No Address Provided
[2023-07-21] MEDS: FUROSEMIDE 40 MG/4 ML VIAL IV SCH (09:14)
[2023-07-21] MEDS ORDERED: ALBUTEROL HFA 8 GM INHALER INH PRN (09:37)
--- NOTE | 2023-07-21 09:44 | History & Physical Report ---
Date of Service July 21, 2023 Assessment & Plan (1) MARJORIE (acute kidney injury): (2) Paroxysmal atrial flutter: (3) Cardiomyopathy: (4) Acute HFrEF (heart failure with reduced ejection fraction): (5) Elevated troponin: (6) Hypertension: (7) Hypothyroidism: (8) CAD, multiple vessel: (9) Hypercholesterolemia: (10) COPD with emphysema: Plan Mr. Lynn is an 83-year-old male with past medical history of HFrEF who was admitted due to CHF exacerbation. Acute exacerbation of HFrEF -Retention both patient with recent history of progressively worsening SOB/EPSTEIN and b/l LE edema -Was taking Bumex at home 2mg, and recently due to worsening symptoms increased it to 3mg without successful control. -Patient with chest tightness. -EKG done in ED normal. -Troponins increased in ED at 126.3 that decreased to 111.9 2 hours later. -Unsure if he followed low salt diet at home. -TTE from today minimally changed from 01/2023: severely reduced LV systolic function (EF of 25-30%), severe global hypokinesis of LV, mod dilated RV, severely reduced RV systolic function, mod dilated LA and RA, RV systolic pressure elevated at 40-50 mmHg -Will diurese with daily Lasix 40mg IV -Strict Is and Os, daily weights -Low salt diet Paroxysmal A-Fib - Currently rate controlled - Continue home Mexiletine and Carvedilol - Continue home eliquis CAD // HLD // HTN - Continue home Carvedilol, Statin, ASA COPD - On home oxygen at 3 lpm a rest or with exertion - Continue home Trelegy Ellipta and Albuterol inh DM-2 - Hgb a1c at 10/2022 was 7.7% Today was 7.8% - Will order Lantus and SSI - Consider insulin regimen adjustment if indicated for better glycemic control after discharge Hypothyroidism - TSH 10/2022 was 2.1 - Continue home Levothyroxine Anxiety - Chronic use of Alprazolam 0.5mg bid - Occasionally takes two at once before bed due to worse anxiety symptoms - Will continue during this admission - Consider weaning off versus decreasing dose after discharge Dispo: PCU/Tele Diet: HH, DM-II, low salt VTE ppx: Eliquis Full Code Admission and Anticipated Discharge Date Admission Date: July 21, 2023 History of Present Illness Chief Complaint: SOB Primary Care Provider: Gene Calvo MD Mr. Lynn is a 83-year-old male with past medical history of COPD (home oxygen at 3 L/min), hypertension, hyperlipidemia, heart block status post pacemaker placement, DM type II, hypothyroidism, CKD stage III, HFrEF, CAD, paroxysmal A- fib, anxiety who came to the hospital due to progressively worsening shortness of breath and chest tightness. Patient refers that at 2 AM this morning, he woke up to chest tightness that radiated to bilateral shoulders and interscapular region and at that time had noticed some shortness of breath. Did not try to use his nitroglyerin, which he has not gotten a new prescription for in the last 1-2 years. Few weeks prior to this, patient was seen by agricultural real estate agent office (Dr. Dubois) to check his pacemaker. For the 3 weeks following this visit, patient refers he has been experiencing progressive SOB and EPSTEIN exertion that affected the amount of ambulation he could do from "walking all over the house and feel fine to going to the bathroom and having to rest due to shortness of breath ". He tried to use his inhaler at home without much success in controlling his SOB. He also noticed progressively worsening bilateral LE swelling. This am, he had chest tightness but not pain that was present in the center of his chest, his bilateral shoulders, and his interscapular region. This caused him and his to go to the ED for evaluation. He states that he tried to keep a low sodium diet at home, but that this is difficult since "everything has salt in it". ED Course: Single dose of IV Lasix 40mg given, ASA 324 mg given. Labs/Imaging: EKG done in the ED and showed NSR with rate in 90s and no ST- segment changes, CXR done and showed mild interstitial pulmonary edema with trace bilateral pulmonary effusions, no leukocytosis, Hgb stable at 15.3, electrolytes stable and Creatinine slightly increased to 2.12 compared to patient's baseline of _, troponin of 126.3 that decreased to 111.9 after 2 hours, BNP elevated at 3572. Allergies Allergy/AdvReac Type Severity Reaction Status Date / Time No Known Allergies Allergy Verified 07/16/23 10:18 Home Medications Medication Instructions Recorded Confirmed Type aspirin 81 mg tablet,delayed 81 mg PO Q OTHER DAY 05/23/18 07/21/23 History release nitroglycerin 0.4 mg sublingual 0.4 mg sublingual UD PRN chest 03/28/20 07/21/23 Rx tablet (Nitrostat) pain #30 Tabs flash glucose sensor (FreeStyle #1 ea 06/18/20 07/16/23 Rx Maritza 14 Day Sensor kit) Portable Oxygen E0431 #1 ea 11/12/20 07/16/23 Rx apixaban 2.5 mg tablet (Eliquis) 2.5 mg PO BID 05/13/21 07/21/23 History fluticasone fur. 200 mcg-umeclid 1 inh inhalation DAILY #3 Inhalers 05/15/22 07/21/23 Rx 62.5 mcg-vilant 25 mcg inhalat.powder (Trelegy Ellipta) rosuvastatin 5 mg tablet 5 mg PO DAILY #90 tabs 08/04/22 07/21/23 Rx alprazolam 0.5 mg tablet 0.5 mg PO BID PRN anxiety #180 tabs 12/31/22 07/21/23 Rx flash glucose sensor (FreeStyle 01/05/23 07/16/23 History Maritza 14 Day Sensor kit) insulin regular human 100 unit/mL 12 unit subcut TIDM 01/05/23 07/21/23 History injection solution (Novolin R Regular U-100 Insulin) carvedilol 12.5 mg tablet 12.5 mg PO BID #180 tabs 02/20/23 07/21/23 Rx pen needle, diabetic 32 gauge x #100 ea 04/29/23 07/16/23 Rx 5/32" (BD Ultra-Fine Madison Pen Needle) levothyroxine 50 mcg tablet 50 mcg PO DAILY #90 tabs 04/30/23 07/21/23 Rx bumetanide 1 mg tablet 2 mg (2 x 1 mg) PO QAM #180 tabs 05/06/23 07/21/23 Rx insulin glargine 100 unit/mL (3 18 unit (0.18 mL) subcut QPM #15 05/06/23 07/21/23 Rx mL) subcutaneous pen (Lantus syringes Solostar U-100 Insulin) albuterol sulfate 90 mcg/actuation 2 puff inhalation QID PRN 06/22/23 07/21/23 Rx aerosol inhaler (Ventolin HFA) shortness of breath or wheezing #54 grams mexiletine 150 mg capsule 150 mg PO Q12H antiarrhythmic 06/30/23 07/21/23 History Past Med/Surg History Medical History (Updated 07/21/23 @ 16:43 by Cintia Powell MD) SOB (shortness of breath) Chronic kidney disease, stage 4 (severe) SOB (shortness of breath) CHF (congestive heart failure) Hypoxia Community acquired pneumonia Elevated troponin MARJORIE (acute kidney injury) Tobacco use disorder Uncontrolled type 2 diabetes mellitus Steroid-induced hyperglycemia Pulmonary nodule Proteinuria Pre-operative exam Panic disorder without agoraphobia Male erectile disorder of organic origin Hyperkalemia Hypercholesterolemia Herpes zoster Enteritis Elevated PSA Edema Diverticulitis of colon Diabetic nephropathy Chronic kidney disease, stage III (moderate) Carotid artery stenosis, asymptomatic CAD, multiple vessel Benign prostatic hyperplasia with elevated prostate specific antigen (PSA) Aneurysm of abdominal aorta Anemia Chronic kidney disease Diabetes mellitus, type 2 Chronic obstructive pulmonary disease Peripheral vascular disease Myocardial Infarction Hyperlipidemia Non-ST elevation OK (NSTEMI) Hypertension Surgical History History of partial colectomy H/O aortic aneurysm repair Stented coronary artery Family History Mother Coronary heart disease COPD (chronic obstructive pulmonary disease) Father Diabetes Brother Unknown family medical history Other Diabetes mellitus type 1 Heart disease Denies family history of Ovarian cancer Prostate cancer Myocardial infarction Breast cancer Colorectal cancer Cancer Social History Smoking Status: Former smoker Tobacco Type: Cigarettes Age Started Using Tobacco: 15; Age Quit Using Tobacco: 70; packs per day: 1; Second Hand Exposure: No; Do You Dip or Chew Tobacco: No; Hx Alcohol Use: No Hx Substance Use: No Preferred Language: Khmer Communication Ability: Effective Visual Impairment: No Limitations Hearing Ability: Normal Time Clock Mechanic Required: No Beliefs That Will Affect Care: None marital status: Current Living Situation: Spouse current occupational status: retired current occupation: Retired from career with [employer] Other Information That Helps Us Care for You: No Feels Safe at Home: Yes Safety Concerns: Feels Safe At This Time Childhood Exposure to Second-Hand Smoke: Yes Diet: regular caffeine: Yes Dental Care, Regularly: No Physical Activity Frequency: Does not Exercise Seatbelt Use: always Sunscreen Use: No Assistive Devices: Denture - Upper and Walker Review of Systems Review of Systems: As per HPI Physical Exam Physical Exam: GENERAL: AAOx3, afebrile, NAD HEAD: AT, NC EYES: EOM intact THROAT: normal to visual inspection CHEST: symmetric chest expansions with respirations CARDIO: RRR, no r/m/g PULMONARY: crackles in bilateral lung bases, no wheezing, normal respiratory effort but visible start of mild SOB with prolonged conversation, no respiratory distress GI: soft, nondistended, nontender EXTREMITIES: bilateral LE +2 edema, no calf tenderness Results & Data Results & Data Vital Signs (Past 12 Hours) Vital Signs Temp Pulse Pulse Resp BP BP Pulse Ox 07/21/23 08:52 83 26 H 142/100 H 97 07/21/23 08:52 07/21/23 08:52 84 20 142/100 H 97 07/21/23 08:00 83 20 157/112 H 94 07/21/23 06:32 07/21/23 06:29 92 H 18 88 L 07/21/23 06:29 07/21/23 06:26 93 H 07/21/23 06:18 07/21/23 06:18 07/21/23 06:18 80 L 07/21/23 06:17 36.9 C 90 20 159/104 H 83 L Pulse Ox O2 Del Method O2 Del Method O2 Flow Rate O2 Flow Rate 07/21/23 08:52 Nasal Cannula 5 07/21/23 08:52 97 Nasal Cannula 5 07/21/23 08:52 Nasal Cannula 5 07/21/23 08:00 Nasal Cannula 5 07/21/23 06:32 Nasal Cannula 3 07/21/23 06:29 Nasal Cannula 3 07/21/23 06:29 Nasal Cannula 4 07/21/23 06:26 07/21/23 06:18 Nasal Cannula 07/21/23 06:18 Nasal Cannula 07/21/23 06:18 Nasal Cannula 3 07/21/23 06:17 Nasal Cannula Supervising Physician Co-Signing Physician Notes Attending attestation Pt seen and examined in concert with Dr. Powell. In agreement with the documented findings as noted in the resident documentation with any exceptions or additions as noted here. Resting in bed with significant SOB with ambulating to the restroom or laying flat, though still better than on presentation per patient. No significant inciting factors recalled, though may have eaten too much of the wrong stuff over the last few weeks per him. Spouse is very conscientious of his dietary intake. On examination, S1/S2 nl RRR no MCG. scattered coarse breath sounds throughout. Abd NT/ND BS+ve Acute hypoxic respiratory failure HFrEF with acute exacerbation - O2 per protocol. Echocardiogram for updated status. Continue IV furosemide diuresis and monitor I/O/weight Paroxysmal atrial fibrillation, rate controlled - continue apixaban, mexiletine and carvedilol COPD with chronic hypoxic respiratory failure with baseline O2 need of 3L NC - no apparent flare at present but monitor Chronic benzodiazepine use - continue alprazolam and monitor for sedation/withdrawal Else see resident documentation as noted. Resident Activity Tracking Resident Involvement: Resident Care Provided Care Provided: Adult Hospital Medicine (7) Hypothyroidism Hypothyroidism type: acquired Qualified Code(s): E03.9 - Hypothyroidism, unspecified
[2023-07-21] MEDS: MEXILETINE HCL 150 MG CAPSULE PO SCH (10:33)
[2023-07-21] MEDS: ASPIRIN 81 MG ECTAB PO SCH (10:33)
[2023-07-21 10:44] LABS: Magnesium 1.7 mg/dl (1.7-2.4)
[2023-07-21 11:14] LABS: Estimated Average Glucose 177 mg/dl; Hemoglobin A1C 7.8 % (4.5-5.6)
--- NOTE | 2023-07-21 13:35 | Electrocardiogram Report ---
Test Reason : Blood Pressure : / mmHG Vent. Rate : 092 BPM Atrial Rate : 092 BPM P-R Int : 144 ms QRS Dur : 154 ms QT Int : 436 ms P-R-T Axes : 086 270 089 degrees QTc Int : 539 ms A-sensed V-paced rhythm Confirmed by Gene Lu ([id number]) on 07/21/2023 1:34:40 PM Referred By: REFERRED SELF Confirmed By:Jose Lu
[2023-07-21] MEDS: INSULIN ASPART PER UNIT CHARGE SC SCH (14:33)
[2023-07-21] MEDS: carvediloL 12.5 MG TAB PO SCH (16:25)
[2023-07-21] MEDS: APIXABAN 2.5 MG TAB PO SCH (20:04)
[2023-07-21] MEDS: ACETAMINOPHEN 325 MG TAB PO PRN (20:04)
[2023-07-21] MEDS: ALPRAZolam 0.5 MG TABLET PO PRN (20:04)
[2023-07-21] MEDS: LANTUS PER UNIT CHARGE SQ SCH (20:17)
[2023-07-22] MEDS: LEVOTHYROXINE SODIUM 50 MCG TABLET PO SCH (06:04)
[2023-07-22 08:00] LABS: Basophils # (auto) 0.13 K/uL (0.00-0.20); Basophils % (auto) 1.6 %; Eosinophils # (auto) 0.25 K/uL (0.00-0.50); Eosinophils % (auto) 3.1 %; Immature Granulocytes # (auto) 0.03 K/uL (0.01-0.20); Immature Granulocytes % (auto) 0.4 %; Lymphocytes # (auto) 1.75 K/uL (1.20-3.40); Lymphocytes % (auto) 21.4 %; Mean Corpuscular Hemoglobin 32.4 pg (25.0-34.0); Mean Corpuscular Hgb Conc 32.6 g/dL (32.0-36.0); Mean Corpuscular Volume 99.5 fL (80.0-100.0); Mean Platelet Volume 10.7 fL (9.4-12.4); Monocytes # (auto) 0.87 K/uL (0.11-0.59); Monocytes % (auto) 10.6 %; Neutrophils # (auto) 5.16 K/uL (1.40-6.50); Neutrophils % (auto) 62.9 %; Platelet Count 190 K/uL (130-400); RDW Coefficient of Variation 15.5 % (11.5-14.5); RDW Standard Deviation 57.1 fL (36.4-46.3); Red Blood Count 4.32 M/uL (4.70-6.10); White Blood Count 8.19 K/ul (4.8-10.8)
[2023-07-22] MEDS: UMECLIDINIUM/VILANTEROL 62.5/25MCG 7 PUFFS/INHALER INH SCH (08:16)
[2023-07-22] MEDS: FLUTICASONE FUROATE 200MCG 14 PUFFS/INHALER INH SCH (08:17)
[2023-07-22] MEDS: ROSUVASTATIN CALCIUM 5 MG TAB PO SCH (08:17)
[2023-07-22 08:35] LABS: Albumin Globulin Ratio 1.1 (0.9-2); Albumin Level 3.1 gm/dl (3.4-5.0); Calcium 8.8 mg/dl (8.6-10.3); Creatinine Clr Calc Pharmacy 28.9 ml/min; Est GFR (African American) 31.8 ml/min; Est GFR (Non-African American) 27.4 ml/min; Globulin 2.8 gm/dl (2.5-4.0); Magnesium 1.7 mg/dl (1.7-2.4); Potassium 4.2 mmol/L (3.5-5.1); Total Protein 5.9 gm/dl (6.0-8.3)
[2023-07-22] MEDS ORDERED: NON-FORMULARY MEDICATION (Fluticasone-Umeclidin-Vilanter [Trelegy Ellipta] 200-62.5-25 mcg INH SCH (09:00)
--- NOTE | 2023-07-22 12:11 | Hospitalist Progress Note ---
Date of Service July 22, 2023 Assessment & Plan (1) MARJORIE (acute kidney injury): (2) Paroxysmal atrial flutter: (3) Cardiomyopathy: (4) Acute HFrEF (heart failure with reduced ejection fraction): (5) Elevated troponin: (6) Hypertension: (7) Hypothyroidism: (8) CAD, multiple vessel: (9) Hypercholesterolemia: (10) COPD with emphysema: Plan Mr. Lynn is an 83-year-old male with past medical history of HFrEF who was admitted due to CHF exacerbation. Acute exacerbation of HFrEF -Retention both patient with recent history of progressively worsening SOB/EPSTEIN and b/l LE edema -TTE (07/21/23): severely reduced LV systolic function (EF of 25-30%), severe global hypokinesis of LV, mod dilated RV, severely reduced RV systolic function, mod dilated LA and RA, RV systolic pressure elevated at 40-50 mmHg - weight has decreased from 93.6-89.5 kg with diuresis - Has a negative net fluid balance and UO is 0.77 -Will diurese with Lasix 40mg IV, which will be increased in frequency to bid for better diuresis -Continue Strict Is and Os, daily weights -Continue Low salt diet Paroxysmal A-Fib - Currently rate controlled - Continue home Mexiletine and Carvedilol - Continue home eliquis CKD-IV - Follows Nephrology - Baseline Creatinine ~2.2 - Creatinine today was 2.14 - Continue to monitor am labs while on diuresis CAD // HLD // HTN - Continue home Carvedilol, Statin, ASA COPD - On home oxygen at 3 lpm a rest or with exertion. Currently NC is at 4 lpm. - Continue home Trelegy Ellipta and Albuterol inh DM-2 - Hgb a1c of 7.8% (07/21/23) - Continue Lantus and SSI - Consider insulin regimen adjustment if indicated for better glycemic control after discharge Hypothyroidism - TSH 10/2022 was 2.1 - Continue home Levothyroxine Anxiety - Chronic use of Alprazolam 0.5mg bid - Occasionally takes two at once before bed due to worse anxiety symptoms - Will continue during this admission - Consider weaning off versus decreasing dose after discharge Dispo: PT/OT consulted; discharge after respiratory status is back to patient's baseline Diet: HH, DM-II, low salt VTE ppx: Eliquis Full Code Admission and Anticipated Discharge Date Admission Date: July 21, 2023 Supervising Physician Co-Signing Physician Notes Attending attestation Pt seen and examined in concert with Dr. Powell. In agreement with the documented findings as noted in the resident documentation with any exceptions or additions as noted here. Improving SOB but not yet approaching baseline. On examination, S1/S2 nl RRR no MCG. scattered coarse breath sounds throughout. Abd NT/ND BS+ve Acute hypoxic respiratory failure HFrEF with acute exacerbation - O2 per protocol. Echo as noted. Continue IV furosemide diuresis and monitor I/O/weight Paroxysmal atrial fibrillation, rate controlled - continue apixaban, mexiletine and carvedilol COPD with chronic hypoxic respiratory failure with baseline O2 need of 3L NC - no apparent flare at present but monitor Chronic benzodiazepine use - continue alprazolam and monitor for sedation/withdrawal Else see resident documentation as noted. Subjective Mr. Lynn is an 83 y/o male who was admitted for management of HFrEF exacerbation. He was evaluated today and found to be AAOx3, afebrile, and in NAD. He states that he feels persistent but improved SOB and has been able to walk to the bathroom with some SOB but not as bad as it was on the days leading to his admission. He states he has some chest tightness similar to what he had at home but that is also improved. Denies fevers, chills, N/V/D, or any other symptom. Review of Systems Review of Systems: As per HPI Physical Exam Physical Exam: GENERAL: AAOx3, afebrile, NAD HEAD: AT, NC EYES: EOM intact THROAT: normal to visual inspection CHEST: symmetric chest expansions with respirations CARDIO: RRR, no r/m/g PULMONARY: improved crackles in bilateral lung bases, no wheezing, no respiratory distress GI: soft, nondistended, nontender EXTREMITIES: bilateral LE +1 edema, no calf tenderness Results & Data Results & Data Vital Signs (Past 12 Hours) Vital Signs Temp Pulse Resp BP Pulse Ox Pulse Ox O2 Del Method 07/22/23 12:04 36.7 C 88 19 133/75 89 L Nasal Cannula 07/22/23 08:49 97 07/22/23 07:11 36.5 C 72 18 121/82 96 Nasal Cannula 07/22/23 02:19 36.7 C 76 18 144/93 H 91 Nasal Cannula O2 Del Method O2 Flow Rate O2 Flow Rate 07/22/23 12:04 07/22/23 08:49 Nasal Cannula 2 07/22/23 07:11 4.0 07/22/23 02:19 4.0 Resident Activity Tracking Resident Involvement: Resident Care Provided Care Provided: Adult Hospital Medicine (7) Hypothyroidism Hypothyroidism type: acquired Qualified Code(s): E03.9 - Hypothyroidism, unspecified
[2023-07-22] MEDS: FUROSEMIDE 40 MG/4 ML VIAL IV SCH (17:17)
[2023-07-22] MEDS: guaiFENesin 600 MG TABCR PO SCH (21:37)
[2023-07-23 06:55] LABS: Basophils # (auto) 0.13 K/uL (0.00-0.20); Basophils % (auto) 1.3 %; Eosinophils # (auto) 0.34 K/uL (0.00-0.50); Eosinophils % (auto) 3.5 %; Hematocrit (blood only) 42.1 % (42.0-52.0); Hemoglobin 14.5 g/dl (14.0-18.0); Immature Granulocytes # (auto) 0.05 K/uL (0.01-0.20); Immature Granulocytes % (auto) 0.5 %; Lymphocytes # (auto) 1.93 K/uL (1.20-3.40); Mean Corpuscular Hgb Conc 34.4 g/dL (32.0-36.0); Mean Corpuscular Volume 95.7 fL (80.0-100.0); Mean Platelet Volume 10.6 fL (9.4-12.4); Monocytes # (auto) 0.91 K/uL (0.11-0.59); Monocytes % (auto) 9.4 %; Neutrophils # (auto) 6.27 K/uL (1.40-6.50); Neutrophils % (auto) 65.3 %; Platelet Count 200 K/uL (130-400); RDW Coefficient of Variation 15.5 % (11.5-14.5); RDW Standard Deviation 54.4 fL (36.4-46.3); White Blood Count 9.63 K/ul (4.8-10.8)
[2023-07-23 07:26] LABS: Albumin Globulin Ratio 1.1 (0.9-2); Albumin Level 3.2 gm/dl (3.4-5.0); Calcium 8.9 mg/dl (8.6-10.3); Creatinine Clr Calc Pharmacy 30.2 ml/min; Est GFR (African American) 33.7 ml/min; Est GFR (Non-African American) 29.1 ml/min; Magnesium 1.7 mg/dl (1.7-2.4); Potassium 4.1 mmol/L (3.5-5.1); Total Protein 6.2 gm/dl (6.0-8.3)
--- NOTE | 2023-07-23 11:25 | Discharge Summary ---
Date of Service July 23, 2023 Admission HPI Per Admitting Provider Mr. Lynn is a 83-year-old male with past medical history of COPD (home oxygen at 3 L/min), hypertension, hyperlipidemia, heart block status post pacemaker placement, DM type II, hypothyroidism, CKD stage III, HFrEF, CAD, paroxysmal A- fib, anxiety who came to the hospital due to progressively worsening shortness of breath and chest tightness. Patient refers that at 2 AM this morning, he woke up to chest tightness that radiated to bilateral shoulders and interscapular region and at that time had noticed some shortness of breath. Did not try to use his nitroglyerin, which he has not gotten a new prescription for in the last 1-2 years. Few weeks prior to this, patient was seen by cleaning porter office (Dr. Dubois) to check his pacemaker. For the 3 weeks following this visit, patient refers he has been experiencing progressive SOB and EPSTEIN exertion that affected the amount of ambulation he could do from "walking all over the house and feel fine to going to the bathroom and having to rest due to shortness of breath ". He tried to use his inhaler at home without much success in controlling his SOB. He also noticed progressively worsening bilateral LE swelling. This am, he had chest tightness but not pain that was present in the center of his chest, his bilateral shoulders, and his interscapular region. This caused him and his to go to the ED for evaluation. He states that he tried to keep a low sodium diet at home, but that this is difficult since "everything has salt in it". ED Course: Single dose of IV Lasix 40mg given, ASA 324 mg given. Labs/Imaging: EKG done in the ED and showed NSR with rate in 90s and no ST- segment changes, CXR done and showed mild interstitial pulmonary edema with trace bilateral pulmonary effusions, no leukocytosis, Hgb stable at 15.3, electrolytes stable and Creatinine slightly increased to 2.12 compared to patient's baseline of _, troponin of 126.3 that decreased to 111.9 after 2 hours, BNP elevated at 3572. Admission Exam Per Admitting Provider GENERAL: AAOx3, afebrile, NAD HEAD: AT, NC EYES: EOM intact THROAT: normal to visual inspection CHEST: symmetric chest expansions with respirations CARDIO: RRR, no r/m/g PULMONARY: crackles in bilateral lung bases, no wheezing, normal respiratory effort but visible start of mild SOB with prolonged conversation, no respiratory distress GI: soft, nondistended, nontender EXTREMITIES: bilateral LE +2 edema, no calf tenderness Principal Diagnosis HFrEF exacerbation Discharge Exam GENERAL: AAOx3, afebrile, NAD HEAD: AT, NC EYES: EOM intact THROAT: normal to visual inspection CHEST: symmetric chest expansions with respirations CARDIO: RRR, no r/m/g PULMONARY: mild end-expiratory wheezes, no wheezing, no respiratory distress GI: soft, nondistended, nontender EXTREMITIES: no swelling in bilateral LE, no calf tenderness Discharge Data Allergies Allergy/AdvReac Type Severity Reaction Status Date / Time No Known Allergies Allergy Verified 07/16/23 10:18 Consultations 07/21/23 07:40 ED Decision to Admit Stat Hospital Course (1) MARJORIE (acute kidney injury): (2) Paroxysmal atrial flutter: (3) Cardiomyopathy: (4) Acute HFrEF (heart failure with reduced ejection fraction): (5) Elevated troponin: (6) Hypertension: (7) Hypothyroidism: (8) CAD, multiple vessel: (9) Hypercholesterolemia: (10) COPD with emphysema: Plan Mr. Lynn is an 83-year-old male with past medical history of HFrEF who was a dmitted due to CHF exacerbation. Acute exacerbation of HFrEF (Resolved) -Retention both patient with recent history of progressively worsening SOB/EPSTEIN and b/l LE edema -TTE (07/21/23): severely reduced LV systolic function (EF of 25-30%), severe global hypokinesis of LV, mod dilated RV, severely reduced RV systolic function, mod dilated LA and RA, RV systolic pressure elevated at 40-50 mmHg - Achieved adequate diuresis with Lasix IV, with decreased weight to 88.7 kg (93.6kg on admission) and clinical improvement with regards to respirations and LE edema. - Will discharge today with home dose of bumex. - Encouraged f/u with his cleaning porter, as well as following a low salt diet to limit the risk of another CHF exacerbation COPD (Chronic, stable?) - On home oxygen at 3 lpm a rest or with exertion and at one point was advised he needed 4 lpm for ambulation. - Today, nursing stated he needs between 5-8 lpm for ambulation, and so 2-step w as ordered which showed a need of 6 lpm for ambulation. Possible this is due to residual effects from CHF exacerbation. - Discussed with CM who helped coordinate HH and new oxygen concentrator that re aches this new demand since the one he had a home reached 5, which he will receive before leaving the hospital. - Continue home Trelegy Ellipta and Albuterol inh after discharge. Paroxysmal A-Fib (Chronic, stable) - Currently rate controlled - Continue home Mexiletine and Carvedilol - Continue home eliquis CKD-IV (Chronic, stable) - Follows Nephrology - Baseline Creatinine ~2.2 - Creatinine today was 2.04 - Advised continued f/u with his recovery room nurse CAD // HLD // HTN (Chronic, stable) - Continue home Carvedilol, Statin, ASA DM-2 (Chronic, stable) - Hgb a1c of 7.8% (07/21/23) - Continue home insulin - Consider insulin regimen adjustment if indicated for better glycemic control after discharge Hypothyroidism (Chronic, stable) - TSH 10/2022 was 2.1 - Continue home Levothyroxine Anxiety (Chronic, stable) - Chronic use of Alprazolam 0.5mg bid - Occasionally takes two at once before bed due to worse anxiety symptoms - Consider weaning off versus decreasing dose after discharge Patient found stable and fit for discharge today. Total Time Total Time Spent Total Time Spent (In Minutes): As per attending attestation. Discharge Plan Discharge Items Patient Disposition: Home - Home Health Services Reason For Visit: SOB AND UPPER BACK PAIN Discharge Diagnosis: HFrEF exacerbation Activity: Per Instructions section Non-emergency contact: Primary Care Provider and Strike Plate Attacher Call non-emergency contact if: your symptoms worsen and your temperature is above 101 Follow-up/Referrals: Gene Calvo MD [Primary Care Provider] - 07/30/23 3:00 pm (Scheduled with Rose Marie Nathan PA-C on 07/30/23 at 3:00 pm) Diet: Carb Consistent or DM2, Heart Healthy and Low Sodium (2gm) Addtl Attending Provider Instructions: You admitted to the hospital for management of heart failure exacerbation, which led to your legs getting progressively more swollen and your breathing to become more difficult. To get the excess water out of your lungs, we gave you IV Lasix (diuretic) which ultimately helped get the excess water off of you and make your swelling better plus your breathing easier. However, despite getting the water off of your lungs, you still had a difficult time with breathing when you were walking/moving around. For this reason, we spoke with our respiratory therapists so they could walk with you and see if your home oxygen needed to be adjusted. They deemed that you did need a higher amount of oxygen when you were walking (6 lpm), and for this reason, we worked with our returned case inspector so that they could send new equipment over for you to take home that would accommodate this increased amount. We also coordinated home health for you. After all of this was settled, we find you fit and stable to be discharged today. Please continue to take your home dose of Bumex starting tomorrow. Please be aware that you should keep a low salt diet to limit the risk of getting another heart failure exacerbation. Please be sure to follow up with your cleaning porter and mechanical engineering technologist after your discharge. A discharge summary will be sent to your primary care physician to ensure continuity of care. Please bring this discharge summary with you to your next office appointment so that your provider can review it at that time. Follow-up appointments: Make a follow-up appointment with your PCP within the next week. It is very important that you follow up with them shortly after discharge from the hospital. Keep all your follow-up appointments as already scheduled. If you cannot make an appointment, notify your provider. Medications: Your medication list has been reviewed and reconciled upon discharge to ensure accuracy and continuity of care. An updated list of all your medications is inc luded with your hospital discharge paperwork. Please review this list closely, and make note of any changes. If you have any issues filling these prescriptions, please call [phone] and ask to leave a message for Dr. Powell. Take your medications as instructed; do not skip a dose of your medicines. Make sure all of your doctors know every medicine you are taking (including meua-lcp-mqsgyaz medicines, vitamins, and supplements). Call your primary care provider before taking any new medicines (including over- the-counter medicines, vitamins, and supplements), because some of these may interact with your current medications, or may make your symptoms worse. Tell your primary care provider if you cannot afford your medications. CONTACT YOUR PRIMARY CARE PROVIDER if you experience any of the following: Worsening of symptoms Fever, chills, or fatigue Difficulty following your treatment plan, or difficulty taking medications CALL 911 OR GO TO THE EMERGENCY DEPARTMENT if you experience any of the following: Sudden, severe abdominal pain or nausea/vomiting Severe chest pain, or chest pain that radiates (moves) to your jaw or arm Sudden, severe shortness of breath or difficulty breathing Thank you for allowing us to participate in your care. Pending Studies at Discharge: No Stand-Alone Forms: My [facility], Smoking Cessation Medications and DC Order Prescriptions: Continued nitroglycerin [Nitrostat] 0.4 mg tablet, sublingual 0.4 mg Sublingual UD PRN (Reason: chest pain) Qty: 30 4RF Rx Instructions: NEEDED FOR CHEST PAIN : ONE TABLET UNDER THE TONGUE EVERY 5 MINUTES UP TO 3 DOSES. Trelegy Ellipta 200-62.5-25 mcg blister with device 1 inh inhalation DAILY Qty: 3 3RF rosuvastatin 5 mg tablet 5 mg PO DAILY Qty: 90 3RF alprazolam 0.5 mg tablet 0.5 mg PO BID PRN (Reason: anxiety) Qty: 180 1RF Rx Instructions: Ongoing therapy, Dr. Calvo AMANDA# [id number] carvedilol 12.5 mg tablet 12.5 mg PO BID Qty: 180 1RF Rx Instructions: must administer with a meal/food (DME) pen needle, diabetic [BD Ultra-Fine [place] Pen Needle] 32 gauge x 5/32" needle See Rx Instructions .Route Qty: 100 0RF Rx Instructions: use 4 per day with insulin injections levothyroxine 50 mcg tablet 50 mcg PO DAILY Qty: 90 3RF bumetanide 1 mg tablet 2 mg PO QAM Qty: 180 3RF insulin glargine [Lantus Solostar U-100 Insulin] 100 unit/mL (3 mL) insulin pen 18 unit subcut QPM Qty: 15 3RF albuterol sulfate [Ventolin HFA] 90 mcg/actuation HFA aerosol inhaler 2 puff inhalation QID PRN (Reason: shortness of breath or wheezing) Qty: 54 3RF Eliquis 2.5 mg tablet 2.5 mg PO BID Novolin R Regular U100 Insulin 100 unit/mL solution 12 unit subcut TIDM Rx Instructions: plus sliding scale Breakfast 12-Lunch12 Dinner 8 (DME) Portable Oxygen E0431 Misc See Rx Instructions .MEDSUPPLY Qty: 1 0RF Rx Instructions: Oxygen 4 liters continuous with portable concentrator. CLARISSA 99 (DME) FreeStyle Maritza 14 Day Sensor Kit See Rx Instructions .Route Rx Instructions: change every 14 days (DME) FreeStyle Maritza 14 Day Sensor Kit See Rx Instructions .ROUTE .MEDSUPPLY Qty: 1 0RF Rx Instructions: change sensor every 2 weeks mexiletine 150 mg capsule 150 mg PO Q12H aspirin 81 mg tablet,delayed release (DR/EC) 81 mg PO Q OTHER DAY Discharge Orders: Discharge Order (Routine); Ordered 07/23/23 Ordered By: Cintia Sahu/Other Patient Handouts: Managing Type 2 Diabetes Admission Data Admit Date/Time: 07/21/23 07:43 Attending Provider: Gene Dunbar Admit Provider: Cintia Powell Primary Care Provider: Gene Calvo Other Providers: Gene Dunbar Supervising Physician Co-Signing Physician Notes Attending attestation Pt seen and examined in concert with Dr. Powell. In agreement with the documented findings as noted in the resident documentation with any exceptions or additions as noted here. Progressive improvement in symptoms, does not complain of SOB on exertion but w/ increased O2 need and fatigability certainly appears so. On examination, S1/S2 nl RRR no MCG. scattered coarse breath sounds throughout. Abd NT/ND BS+ve Acute hypoxic respiratory failure HFrEF with acute exacerbation - 2 step w/ increased O2 need, to escalate home O2 and re-assess with PCP as symptoms improve. Resume home diuretic regimen and monitor BMP, fluid status as outpatient. Paroxysmal atrial fibrillation, rate controlled - continue apixaban, mexiletine and carvedilol COPD with chronic hypoxic respiratory failure with baseline O2 need of 3L NC - no apparent flare during admission Chronic benzodiazepine use - continued on inpatient, no apparent concerns of withdrawal on this admission Else see resident documentation as noted. Total attending physician time spent with this patient's care on the day of discharge: 35 minutes. Resident Activity Tracking Resident Involvement: Resident Care Provided Care Provided: Adult Hospital Medicine
== END 2023-07-23 17:44 | disposition home health service (06) | DRG 291 ==
LOC: SUATTDRO → ED 06:13 → EDINP 07:43 → 2S 08:50

== ENCOUNTER 2023-08-05 02:48 | Inpatient (IN) ==
--- NOTE | 2023-08-05 03:12 | Emergency Department Note ---
Impression & Plan Midsternal chest [facility] NAME: KD AGARWAL AGE: 83 SEX: Male INFORMANT: Patient ED PROVIDER(S): Anne Spence DO CHIEF COMPLAINT: Weakness and chest pain PLAN: Disposition: Admit to the [facility] MEDICAL DECISION MAKING: This is an 83-year-old male patient who was brought to the emergency department by EMS after diffuse body pain, weakness and chest pain. Symptoms have been ongoing for the past couple of days but the chest discomfort became more constant and severe. EMS administered aspirin, Zofran, oxygen and nitroglycerin. 2 sprays of nitroglycerin relieved the patient's chest discomfort. EKG revealed a paced rhythm and right bundle branch block. It was difficult to discern ST segment elevation. However, the patient does have an elevated troponin at 111. Patient continued to complain of discomfort in his chest and was given a dose of IV fentanyl and Zofran which gave him moderate relief. Patient appeared to be significantly fluid overloaded on chest x-ray and had moderate peripheral edema. He was given a dose of IV Bumex. Other laboratory studies revealed mild leukocytosis with a white count of 13.1. H&H were stable. BUN of 46 and creatinine of 1.9 which are stable for this patient. Glucose was elevated at 237. The patient's BNP was 4663. [facility] and [facility] will evaluate for further inpatient care. Care/management discussed with: Patient and his Triage Nursing notes: Reviewed and agree with them. Vital Signs: reviewed and remarkable for hypertension and tachypnea Additional History obtained from: EMS and the patient's Chronic Medical/Social Conditions affecting care: Angina and congestive heart failure Prior/ Outside/ External records reviewed: I reviewed the admission from earlier this month where the patient was admitted with chest pain Differential Diagnosis: Cardiac ischemia, angina, viral illness, CHF Diagnostics, independently interpreted by me: ECG: Paced rhythm at a rate of 89 with a right bundle branch block. No obvious ischemia Cardiac Monitoring: Paced rhythm at a rate of 86 Imaging studies: Portable chest x-ray as per my independent interpretation HPI: 83 year old Male arrives for evaluation of chest discomfort and weakness. Patient describes having increasing weakness over the past 3 days with diffuse body pain. Patient awoke from sleep with diffuse pain across his shoulders, chest and back. PAST MEDICAL HISTORY: See Below, PAST SURGICAL HISTORY: See Below, SOCIAL HISTORY: See Below, HOME MEDICATIONS: See list ALLERGIES: None VITALS: See Below PHYSICAL EXAMINATION: HEENT: Head - normocephalic and atraumatic. Pupils are equal, round, and reactive to light. Extraocular eye muscles are intact, and sclera are anicteric. Nose - moist nasal mucosa without discharge. Mouth - moist buccal mucosa. Oropharynx is nonerythematous and there is no tonsillar exudate or edema noted. Neck: Supple; no JVD or cervical lymphadenopathy appreciated. Heart: Regular rate and rhythm. There is a normal S1 and S2 with no murmurs, clicks, or gallops appreciated. Lungs: Diminished breath sounds in all lung alfonso. Abdomen: Soft, completely nontender, nondistended, with good bowel sounds. There are no palpable pulsatile masses or hepatosplenomegaly. There is no guarding, rigidity, or rebound noted. Extremities: 2+ pitting edema both lower extremities. There is erythema noted to the left lower extremity with some ecchymosis to the toes. The patient describes having fractures to his toes from 3 months ago. Skin: warm and dry with good turgor and no rashes. Emergency department treatment: balancer, supplemental oxygen, IV Bumex, IV fentanyl, IV Zofran Emergency department course: The patient was evaluated in room A-12. A complete history and physical was performed. Previous electronic medical records were reviewed. Laboratory studies were drawn as above. A twelve-lead EKG was obtained. An order was placed for continuous cardiac monitoring. Patient is in a paced rhythm at a rate of 86. Patient was given a dose of IV fentanyl and Zofran for the pain he was experiencing in his chest. He went on to receive a dose of IV Bumex after a portable chest x-ray showed evidence of significant pulmonary edema. Patient remained hemodynamically stable. I discussed the case with the [facility] and they will evaluate for further inpatient care. Past Med/Surg History Medical History (Updated 08/05/23 @ 18:30 by Anne Spence DO) Chronic respiratory failure with hypoxia Paroxysmal atrial flutter Cardiomyopathy Acute HFrEF (heart failure with reduced ejection fraction) COPD with emphysema Hypothyroidism SOB (shortness of breath) Chronic kidney disease, stage 4 (severe) SOB (shortness of breath) CHF (congestive heart failure) Hypoxia Community acquired pneumonia Elevated troponin MARJORIE (acute kidney injury) Tobacco use disorder Uncontrolled type 2 diabetes mellitus Steroid-induced hyperglycemia Pulmonary nodule Proteinuria Pre-operative exam Panic disorder without agoraphobia Male erectile disorder of organic origin Hyperkalemia Hypercholesterolemia Herpes zoster Enteritis Elevated PSA Edema Diverticulitis of colon Diabetic nephropathy Chronic kidney disease, stage III (moderate) Carotid artery stenosis, asymptomatic CAD, multiple vessel Benign prostatic hyperplasia with elevated prostate specific antigen (PSA) Aneurysm of abdominal aorta Anemia Chronic kidney disease Diabetes mellitus, type 2 Chronic obstructive pulmonary disease Peripheral vascular disease Myocardial Infarction Hyperlipidemia Non-ST elevation OH (NSTEMI) Hypertension Surgical History (Updated 07/31/23 @ 00:09 by Tosha Domingo) History of partial colectomy H/O aortic aneurysm repair Stented coronary artery Family History Mother Coronary heart disease COPD (chronic obstructive pulmonary disease) Father Diabetes Brother Unknown family medical history Other Diabetes mellitus type 1 Heart disease Denies family history of Ovarian cancer Prostate cancer Myocardial infarction Breast cancer Colorectal cancer Cancer Social History Smoking Status: Former smoker Tobacco Type: Cigarettes Age Started Using Tobacco: 15; Age Quit Using Tobacco: 70; packs per day: 1; Second Hand Exposure: No; Do You Dip or Chew Tobacco: No; Hx Alcohol Use: No Hx Substance Use: No Preferred Language: Iranian Communication Ability: Effective Visual Impairment: No Limitations Hearing Ability: Normal Professional Engineer Required: No Beliefs That Will Affect Care: None marital status: Current Living Situation: Spouse current occupational status: retired current occupation: Retired from career with [employer] Safe at Home: Yes Childhood Exposure to Second-Hand Smoke: Yes Diet: regular caffeine: Yes Dental Care, Regularly: No Physical Activity Frequency: Does not Exercise Seatbelt Use: always Sunscreen Use: No Assistive Devices: Oxygen - Continuous and Walker Allergies Allergies Allergy/AdvReac Type Severity Reaction Status Date / Time No Known Allergies Allergy Verified 08/05/23 03:12 Home Meds Home Medications Medication Instructions Recorded Confirmed aspirin 81 mg tablet,delayed 81 mg PO Q OTHER DAY 05/23/18 08/05/23 release apixaban 2.5 mg tablet (Eliquis) 2.5 mg PO BID 05/13/21 08/05/23 flash glucose sensor (FreeStyle 01/05/23 07/30/23 Maritza 14 Day Sensor kit) insulin regular human 100 unit/mL 12 unit subcut TIDM 01/05/23 08/05/23 injection solution (Novolin R Regular U-100 Insulin) mexiletine 150 mg capsule 150 mg PO Q12H antiarrhythmic 06/30/23 08/05/23 insulin glargine 100 unit/mL (3 12 unit subcut QPM 07/24/23 08/05/23 mL) subcutaneous pen (Lantus Solostar U-100 Insulin) Previous Rx's Medication Instructions Recorded flash glucose sensor (FreeStyle #1 ea 06/18/20 Maritza 14 Day Sensor kit) Portable Oxygen E0431 #1 ea 11/12/20 fluticasone fur. 200 mcg-umeclid 1 inh inhalation DAILY #3 Inhalers 05/15/22 62.5 mcg-vilant 25 mcg inhalat.powder (Trelegy Ellipta) alprazolam 0.5 mg tablet 0.5 mg PO BID PRN anxiety #180 tabs 12/31/22 pen needle, diabetic 32 gauge x #100 ea 04/29/23 5/32" (BD Ultra-Fine [place] Pen Needle) levothyroxine 50 mcg tablet 50 mcg PO DAILY #90 tabs 04/30/23 bumetanide 1 mg tablet 2 mg (2 x 1 mg) PO QAM #180 tabs 05/06/23 albuterol sulfate 90 mcg/actuation 2 puff inhalation QID PRN 06/22/23 aerosol inhaler (Ventolin HFA) shortness of breath or wheezing #54 grams nitroglycerin 0.4 mg sublingual 0.4 mg sublingual UD PRN chest 07/24/23 tablet (Nitrostat) pain #30 Tabs rosuvastatin 5 mg tablet 5 mg PO DAILY #90 tabs 07/27/23 carvedilol 12.5 mg tablet 12.5 mg PO BID #180 tabs 07/30/23 blood-glucose meter,continuous #1 ea 08/03/23 (FreeStyle Maritza 3 Morrison) blood-glucose sensor (FreeStyle #2 ea 08/03/23 Maritza 3 Sensor device) Results & Data (ED) Vital Signs Vital Signs - 24 hr 08/05/23 02:50 08/05/23 02:50 08/05/23 02:50 Temperature 37.1 C Temperature Source Oral Pulse Rate 84 Pulse Rate [Apical] Pulse Rate from SpO2 Sensor Pulse Rhythm [Apical] Respiratory Rate 24 Respiratory Effort / Characteristics Labored Short of Breath Labored Respiratory Pattern Blood Pressure 141/88 H Blood Pressure [Right Arm] Blood Pressure Mean 105 Blood Pressure Mean [Right Arm] Pulse Oximetry 94 80 L Oxygen Delivery Method Nasal Cannula Nasal Cannula Room Air Oxygen Flow Rate 4 4 Sepsis Recent Fever Within 48 Hours No Sepsis New/Unexplained Change in Mental Status No Sepsis Action Taken by Nursing No Action Required Oxygen Flow Rate - Titration 4 Pulse Oximetry Post Tiitration 94 08/05/23 02:50 08/05/23 02:57 08/05/23 02:57 Temperature 37.1 C Temperature Source Oral Pulse Rate 89 Pulse Rate [Apical] 84 Pulse Rate from SpO2 Sensor Pulse Rhythm [Apical] Regular Respiratory Rate 24 Respiratory Effort / Characteristics Labored Respiratory Pattern Regular Blood Pressure 141/88 H Blood Pressure [Right Arm] 141/88 H Blood Pressure Mean 115 Blood Pressure Mean [Right Arm] 105 Pulse Oximetry 94 Oxygen Delivery Method Nasal Cannula Oxygen Flow Rate Sepsis Recent Fever Within 48 Hours Sepsis New/Unexplained Change in Mental Status Sepsis Action Taken by Nursing Oxygen Flow Rate - Titration Pulse Oximetry Post Tiitration 08/05/23 02:58 08/05/23 03:00 08/05/23 03:07 Temperature Temperature Source Pulse Rate 89 88 Pulse Rate [Apical] Pulse Rate from SpO2 Sensor 89 89 Pulse Rhythm [Apical] Respiratory Rate 23 26 H Respiratory Effort / Characteristics Respiratory Pattern Blood Pressure Blood Pressure [Right Arm] Blood Pressure Mean Blood Pressure Mean [Right Arm] Pulse Oximetry 95 95 94 Oxygen Delivery Method Nasal Cannula Oxygen Flow Rate 4 Sepsis Recent Fever Within 48 Hours Sepsis New/Unexplained Change in Mental Status Sepsis Action Taken by Nursing Oxygen Flow Rate - Titration Pulse Oximetry Post Tiitration 08/05/23 04:00 08/05/23 05:00 Temperature Temperature Source Pulse Rate 83 79 Pulse Rate [Apical] Pulse Rate from SpO2 Sensor 83 79 Pulse Rhythm [Apical] Respiratory Rate 23 35 H Respiratory Effort / Characteristics Respiratory Pattern Blood Pressure Blood Pressure [Right Arm] Blood Pressure Mean Blood Pressure Mean [Right Arm] Pulse Oximetry 97 93 Oxygen Delivery Method Oxygen Flow Rate Sepsis Recent Fever Within 48 Hours Sepsis New/Unexplained Change in Mental Status Sepsis Action Taken by Nursing Oxygen Flow Rate - Titration Pulse Oximetry Post Tiitration Laboratory Data 08/05/23 03:00 08/05/23 03:00 Lab Results 08/05/23 08/05/23 Range/Units 03:00 04:50 WBC 13.16 H (4.8-10.8) K/ul RBC 4.87 (4.70-6.10) M/uL Hgb 15.8 (14.0-18.0) g/dl Hct 48.7 (42.0-52.0) % MCV 100.0 (80.0-100.0) fL MCH 32.4 (25.0-34.0) pg MCHC 32.4 (32.0-36.0) g/dL RDW Std Deviation 58.7 H (36.4-46.3) fL RDW Coeff of Pj 16.0 H (11.5-14.5) % Plt Count 242 (130-400) K/uL MPV 11.0 (9.4-12.4) fL Immature Gran % (Auto) 0.6 % Neut % (Auto) 74.9 % Lymph % (Auto) 11.6 % [place] % (Auto) 10.1 % Eos % (Auto) 1.7 % Baso % (Auto) 1.1 % Neut # (Auto) 9.85 H (1.40-6.50) K/uL Lymph # (Auto) 1.53 (1.20-3.40) K/uL [place] # (Auto) 1.33 H (0.11-0.59) K/uL Eos # (Auto) 0.22 (0.00-0.50) K/uL Baso # (Auto) 0.15 (0.00-0.20) K/uL Immature Gran # (Auto) 0.08 (0.01-0.20) K/uL Sodium 134 L (136-145) mmol/L Potassium 4.7 (3.5-5.1) mmol/L Chloride 94 L (98-107) mmol/L Carbon Dioxide 33 H (21-32) mmol/L Anion Gap 7 (3-11) BUN 46 H (6-23) mg/dl Creatinine 1.90 H (0.6-1.4) mg/dl Est Cr Clr Drug Dosing 32.7 ml/min Est GFR ( Amer) 36.7 ml/min Est GFR (Non-Af Amer) 31.7 ml/min BUN/Creatinine Ratio 24.2 H (10-20) Glucose 237 H (70-99(Fasting)) mg/dl Calcium 9.4 (8.6-10.3) mg/dl Total Bilirubin 1.0 (0.2-1.0) mg/dl AST 33 (13-39) U/L ALT 23 (7-52) U/L Alkaline Phosphatase 159 H (34-104) U/L Troponin I High Sens 111.4 H* (0-20) pg/ml B-Natriuretic Peptide 4663 H (0-100) pg/ml Total Protein 7.3 (6.0-8.3) gm/dl Albumin 3.8 (3.4-5.0) gm/dl Globulin 3.5 (2.5-4.0) gm/dl Albumin/Globulin Ratio 1.1 (0.9-2) Lipase 20 (11-82) U/L Adenovirus (PCR) Not Detected (NotDetected) B. pertussis DNA (PCR) Not Detected (NotDetected) B.parapertussis DNA PCR Not Detected (NotDetected) C. pneumoniae DNA (PCR) Not Detected (NotDetected) Coronavirus OC43 (PCR) Not Detected (NotDetected) Coronavirus HKU1 (PCR) Not Detected (NotDetected) Coronavirus 229E (PCR) Not Detected (NotDetected) SARS-CoV-2 (PCR) Not Detected (NotDetected) Coronavirus NL63 (PCR) Not Detected (NotDetected) Human Metapneumovir PCR Not Detected (NotDetected) Influenza Type A (PCR) Not Detected (NotDetected) Influenza Type B (PCR) Not Detected (NotDetected) M. pneumoniae (PCR) Not Detected (NotDetected) Parainfluenza 1 (PCR) Not Detected (NotDetected) Parainfluenza 2 (PCR) Not Detected (NotDetected) Parainfluenza 3 (PCR) Not Detected (NotDetected) Parainfluenza 4 (PCR) Not Detected (NotDetected) RSV (PCR) Not Detected (NotDetected) Entero/Rhino (PCR) Not Detected (NotDetected) Administered Medications Apixaban (Apixaban 2.5 Mg Tab) 2.5 mg PO BID ERICKA Stop: 09/04/23 08:59 Last Admin: 08/05/23 08:36 Dose: 2.5 mg Documented By: MANDIE Aspirin (Aspirin 81 Mg Ectab) 81 mg PO Q48H ERICKA Stop: 09/04/23 06:15 Last Admin: 08/05/23 08:36 Dose: 81 mg Documented By: MANDIE Carvedilol (Carvedilol 12.5 Mg Tab) 12.5 mg PO BID ERICKA Stop: 09/04/23 08:59 Last Admin: 08/05/23 08:36 Dose: 12.5 mg Documented By: MANDIE Fluticasone Furoate (Fluticasone Furoate 200mcg 14 Puffs/Inhaler) 1 puffs INH DAILY ERICKA Stop: 09/04/23 08:59 Last Admin: 08/05/23 08:37 Dose: 1 puffs Documented By: MANDIE Bumetanide 1 mg/ Syringe 4 mls @ 4 mls/min IV BID@0900,1700 [facility] Stop: 09/04/23 08:59 Last Admin: 08/05/23 16:43 Dose: 4 mls/min Documented By: Admin: 08/05/23 10:59 Dose: 4 mls/min Documented By: MANDIE Insulin Aspart (Insulin Aspart Per Unit Charge) 0 units SC ACHS [facility] Stop: 09/04/23 07:29 Last Admin: 08/05/23 16:50 Dose: 6 units Documented By: RICO Co-signed By: DINORAH Admin: 08/05/23 13:56 Dose: 3 units Documented By: CHIDI Co-signed By: GHASSAN Admin: 08/05/23 09:16 Dose: 4 units Documented By: MANDIE Co-signed By: STEVEN Levothyroxine Sodium (Levothyroxine Sodium 50 Mcg Tablet) 50 mcg PO DAILYBB ERICKA Stop: 09/04/23 06:59 Last Admin: 08/05/23 08:37 Dose: 50 mcg Documented By: MANDIE Mexiletine HCl (Mexiletine Hcl 150 Mg Capsule) 150 mg PO Q12H ERICKA Stop: 09/04/23 06:59 Last Admin: 08/05/23 08:37 Dose: 150 mg Documented By: MANDIE Nitroglycerin (Nitroglycerin 2% Ointment 30gm Tube) 1 inch EXT Q6H ERICKA Stop: 08/06/23 00:01 Last Admin: 08/05/23 16:51 Dose: 1 inch Documented By: Admin: 08/05/23 13:12 Dose: 1 inch Documented By: Admin: 08/05/23 05:43 Dose: 1 inch Documented By: SANTI Rosuvastatin Calcium (Rosuvastatin Calcium 5 Mg Tab) 5 mg PO DAILY ERICKA Stop: 09/04/23 08:59 Last Admin: 08/05/23 08:36 Dose: 5 mg Documented By: MANDIE Umeclidinium/Vilanterol (Umeclidinium/Vilanterol 62.5/25mcg 7 Puffs/Inhaler) 1 puffs INH DAILY ERICKA Stop: 09/04/23 08:59 Last Admin: 08/05/23 10:59 Dose: 1 puffs Documented By: MANDIE Discontinued Medications Fentanyl Citrate (Fentanyl Citrate Pf 100 Mcg/2 Ml Vial) 50 mcg IV NOW STA Stop: 08/05/23 04:46 Last Admin: 08/05/23 04:58 Dose: 50 mcg Documented By: SANTI Bumetanide 1 mg/ Syringe 4 mls @ 4 mls/min IV ONE ONE Stop: 08/05/23 04:24 Last Admin: 08/05/23 05:07 Dose: 4 mls/min Documented By: SANTI Ondansetron HCl (Ondansetron Inj 2 Mg/Ml 2 Ml Vial) 4 mg IV NOW STA Stop: 08/05/23 04:46 Last Admin: 08/05/23 04:58 Dose: 4 mg Documented By: SANTI Imaging Data Radiologist's Impression: Chest X-Ray 08/05/23 03:07 SINGLE VIEW CHEST CLINICAL HISTORY: Atypical chest pain. FINDINGS: An AP, portable, upright chest radiograph is compared to study dated 07/21/2023. A 3-lead cardiac pacemaker is unchanged in position. The heart is enlarged noting atherosclerotic calcification of the thoracic aorta. There is pulmonary vascular congestion. Emphysema and chronic interstitial thickening is similar to previous. There are left large right pleural effusions with dependent consolidation. No pneumothorax is seen. The skeletal structures are osteopenic. The bony thorax is grossly intact. Arthritic change is seen in the shoulders. IMPRESSION: 1. Cardiomegaly and cardiac pacemaker with evidence of congestive failure. 2. Left larger than right pleural effusions with dependent consolidation. 3. Emphysema. ACT 112: Negative or not required by law. Electronically signed by: Vince Vázquez M.D. 08/05/2023 7:24 AM Discharge Plan Visit Data Chief Complaint: Chest Pain Stated Complaint: CHEST PAIN, NAUSEA, SOB ED Provider: Anne Spence Discharge Problem: Midsternal chest pain Patient Disposition: Admitted As Inpatient Discharge Instructions Interventions: ED Discharge Assessment Last Done: 08/05/23 15:47
[2023-08-05 03:39] LABS: Basophils # (auto) 0.15 K/uL (0.00-0.20); Basophils % (auto) 1.1 %; Eosinophils # (auto) 0.22 K/uL (0.00-0.50); Eosinophils % (auto) 1.7 %; Hematocrit (blood only) 48.7 % (42.0-52.0); Hemoglobin 15.8 g/dl (14.0-18.0); Immature Granulocytes # (auto) 0.08 K/uL (0.01-0.20); Immature Granulocytes % (auto) 0.6 %; Lymphocytes # (auto) 1.53 K/uL (1.20-3.40); Lymphocytes % (auto) 11.6 %; Mean Corpuscular Hemoglobin 32.4 pg (25.0-34.0); Mean Corpuscular Hgb Conc 32.4 g/dL (32.0-36.0); Monocytes # (auto) 1.33 K/uL (0.11-0.59); Monocytes % (auto) 10.1 %; Neutrophils # (auto) 9.85 K/uL (1.40-6.50); Neutrophils % (auto) 74.9 %; Platelet Count 242 K/uL (130-400); RDW Standard Deviation 58.7 fL (36.4-46.3); Red Blood Count 4.87 M/uL (4.70-6.10); White Blood Count 13.16 K/ul (4.8-10.8)
[2023-08-05 03:54] LABS: Albumin Globulin Ratio 1.1 (0.9-2); Albumin Level 3.8 gm/dl (3.4-5.0); BUN Creatinine Ratio 24.2 (10-20); Calcium 9.4 mg/dl (8.6-10.3); Creatinine Clr Calc Pharmacy 32.7 ml/min; Est GFR (African American) 36.7 ml/min; Est GFR (Non-African American) 31.7 ml/min; Globulin 3.5 gm/dl (2.5-4.0); Potassium 4.7 mmol/L (3.5-5.1); Total Protein 7.3 gm/dl (6.0-8.3)
[2023-08-05 04:05] LABS: Troponin I High Sensitivity 111.4 pg/ml (0-20)
[2023-08-05] MEDS: ONDANSETRON INJ 2 MG/ML 2 ML VIAL IV STA (04:58)
[2023-08-05] MEDS: fentaNYL citrate PF 100 MCG/2 ML VIAL IV STA (04:58)
[2023-08-05] MEDS: BUMETANIDE 1 MG in SYRINGE 0 ML IV ONE (05:07)
--- NOTE | 2023-08-05 05:37 | History & Physical Report ---
Date of Service August 05, 2023 Assessment & Plan (1) Acute and chronic respiratory failure with hypoxia: (2) Acute HFrEF (heart failure with reduced ejection fraction): (3) CAD, multiple vessel: (4) Cardiomyopathy: (5) Diabetes mellitus, type 2: (6) COPD exacerbation: (7) Hypertension: (8) Hypothyroidism: (9) Complete heart block: (10) Status post placement of cardiac pacemaker: (11) Mixed restrictive and obstructive lung disease: (12) Chronic kidney disease, stage 4 (severe): Plan Acute on chronic respiratory failure with hypoxia/acute HFrEF exacerbation/COPD exacerbation- Baseline 3 L nasal cannula oxygen at rest, and increases up to 6 L oxygen as needed for activity Acute HFrEF exacerbation/left pleural effusion/chronically elevated troponin/CAD/hypertension/cardiomyopathy/paroxysmal atrial flutter-fibrillation-- The patient will be admitted to telemetry for serial cardiac enzymes, serial EKG's, cardiac rhythm monitoring Troponin on admission 111.4, which is about his average reading. Most recent echo on 07/21/2023 showed minimal change compared to 01/23/2023. Ejection fraction 25-30%, severe global hypokinesis on the left ventricle. The right ventricle systolic function is severely reduced. Hold Bumex 1 mg p.o. twice daily Given Bumex 1 mg IV from the ED at 4:30 AM Bumex 1 mg IV twice daily starting at 9 AM today Continue apixaban 2.5 mg p.o. twice daily, aspirin 81 mg every other day, carvedilol 12.5 mg p.o. twice daily, mexiletine 150 mg p.o. every 12 hours. Add Nitropaste 1 inch to anterior chest wall every 6 hours. Patient would likely benefit from being discharged on Imdur to help with ischemia and CHF Consult cardiology, sees Dr. Dubois COPD exacerbation/mixed restrictive and obstructive lung disease/question of pulmonary hypertension- Continue Trelegy Ellipta 1 elation daily, and albuterol HFA 2 puffs 4 times daily as needed Consult pulmonology, sees Dr. Bailey Diabetes mellitus- Continue glargine 12 units subcu in the evening Hold regular insulin 12 units subcu 3 times daily with meals Placed on Accu-Cheks with NovoLog SSI CKD stage IV- Creatinine 1.90 on admission, with range 1.9-2.[address] Westbrook History of Present Illness Chief Complaint: The patient presents to the emergency department with chest pain and shortness of breath/dyspnea on exertion over the past several days, in particular worsening after going to bed last evening. EMS administered to the patient aspirin, Zofran, oxygen and nitroglycerin 2 sprays. The patient reportedly had significant improvement following ED nitroglycerin 2 sprays Primary Care Provider: Gene Calvo MD The patient is an 83-year-old male with a past medical history including AAA, asymptomatic carotid artery stenosis, diabetic nephropathy, panic disorder without agoraphobia, pulmonary nodules, diabetes mellitus type 2 with hypoglycemia, complete heart block status post pacemaker, mixed restrictive and obstructive lung disease, vitamin D deficiency and CKD stage IV. He was most recently admitted from 07/20-07/23/2023 to [facility] due to CHF exacerbation. He does chronically wear 3 L oxygen, and at that admission was given instructions to increase up to 6 L with physical activity. He had been doing well for about a week post admission, and then gradually start having worsening symptoms again. 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 He and his try to watch his salt intake very well, however, she reports that when she does stay with a especially low-salt diet, is glucose seems to drop also. He denies any recent travels or sick exposures. Allergies Allergy/AdvReac Type Severity Reaction Status Date / Time No Known Allergies Allergy Verified 08/05/23 03:12 Home Medications Medication Instructions Recorded Confirmed Type aspirin 81 mg tablet,delayed 81 mg PO Q OTHER DAY 05/23/18 08/05/23 History release flash glucose sensor (FreeStyle #1 ea 06/18/20 07/30/23 Rx Maritza 14 Day Sensor kit) Portable Oxygen E0431 #1 ea 11/12/20 07/30/23 Rx apixaban 2.5 mg tablet (Eliquis) 2.5 mg PO BID 05/13/21 08/05/23 History fluticasone fur. 200 mcg-umeclid 1 inh inhalation DAILY #3 Inhalers 05/15/22 08/05/23 Rx 62.5 mcg-vilant 25 mcg inhalat.powder (Trelegy Ellipta) alprazolam 0.5 mg tablet 0.5 mg PO BID PRN anxiety #180 tabs 12/31/22 08/05/23 Rx flash glucose sensor (FreeStyle 01/05/23 07/30/23 History Maritza 14 Day Sensor kit) insulin regular human 100 unit/mL 12 unit subcut TIDM 01/05/23 08/05/23 History injection solution (Novolin R Regular U-100 Insulin) pen needle, diabetic 32 gauge x #100 ea 04/29/23 07/30/23 Rx 532" (BD Ultra-Fine [place] Pen Needle) levothyroxine 50 mcg tablet 50 mcg PO DAILY #90 tabs 04/30/23 08/05/23 Rx bumetanide 1 mg tablet 2 mg (2 x 1 mg) PO QAM #180 tabs 05/06/23 08/05/23 Rx albuterol sulfate 90 mcg/actuation 2 puff inhalation QID PRN 06/22/23 08/05/23 Rx aerosol inhaler (Ventolin HFA) shortness of breath or wheezing #54 grams mexiletine 150 mg capsule 150 mg PO Q12H antiarrhythmic 06/30/23 08/05/23 History insulin glargine 100 unit/mL (3 12 unit subcut QPM 07/24/23 08/05/23 History mL) subcutaneous pen (Lantus Solostar U-100 Insulin) nitroglycerin 0.4 mg sublingual 0.4 mg sublingual UD PRN chest 07/24/23 08/05/23 Rx tablet (Nitrostat) pain #30 Tabs rosuvastatin 5 mg tablet 5 mg PO DAILY #90 tabs 07/27/23 08/05/23 Rx carvedilol 12.5 mg tablet 12.5 mg PO BID #180 tabs 07/30/23 08/05/23 Rx blood-glucose meter,continuous #1 ea 08/03/23 Rx (FreeStyle Maritza 3 [place]) blood-glucose sensor (FreeStyle #2 ea 08/03/23 Rx Maritza 3 Sensor device) Past Med/Surg History Medical History SOB (shortness of breath) Chronic kidney disease, stage 4 (severe) SOB (shortness of breath) CHF (congestive heart failure) Hypoxia Community acquired pneumonia Elevated troponin MARJORIE (acute kidney injury) Tobacco use disorder Uncontrolled type 2 diabetes mellitus Steroid-induced hyperglycemia Pulmonary nodule Proteinuria Pre-operative exam Panic disorder without agoraphobia Male erectile disorder of organic origin Hyperkalemia Hypercholesterolemia Herpes zoster Enteritis Elevated PSA Edema Diverticulitis of colon Diabetic nephropathy Chronic kidney disease, stage III (moderate) Carotid artery stenosis, asymptomatic CAD, multiple vessel Benign prostatic hyperplasia with elevated prostate specific antigen (PSA) Aneurysm of abdominal aorta Anemia Chronic kidney disease Diabetes mellitus, type 2 Chronic obstructive pulmonary disease Peripheral vascular disease Myocardial Infarction Hyperlipidemia Non-ST elevation SC (NSTEMI) Hypertension Surgical History History of partial colectomy H/O aortic aneurysm repair Stented coronary artery Family History Mother Coronary heart disease COPD (chronic obstructive pulmonary disease) Father Diabetes Brother Unknown family medical history Other Diabetes mellitus type 1 Heart disease Denies family history of Ovarian cancer Prostate cancer Myocardial infarction Breast cancer Colorectal cancer Cancer Social History Smoking Status: Former smoker Tobacco Type: Cigarettes Age Started Using Tobacco: 15; Age Quit Using Tobacco: 70; packs per day: 1; Second Hand Exposure: No; Do You Dip or Chew Tobacco: No; Hx Alcohol Use: No Hx Substance Use: No Preferred Language: Latvian Communication Ability: Effective Visual Impairment: No Limitations Hearing Ability: Normal Finisher Polisher Required: No Beliefs That Will Affect Care: None marital status: Current Living Situation: Spouse current occupational status: retired current occupation: Retired from career with [employer] Feels Safe at Home: Yes Childhood Exposure to Second-Hand Smoke: Yes Diet: regular caffeine: Yes Dental Care, Regularly: No Physical Activity Frequency: Does not Exercise Seatbelt Use: always Sunscreen Use: No Assistive Devices: Denture - Upper, Oxygen - Continuous and Walker Review of Systems Review of Systems: The patient denies palpitations, cough, lower extremity swelling, sore throat, fevers, chills, sweats, nausea, vomiting, diarrhea , constipation, abdominal pain, pelvic pain, blood in urine or stool, dysuria, urinary frequency or urgency, lightheadedness, dizziness, headache, memory loss, loss of consciousness, rash, abnormal bruising or bleeding, focal weakness, numbness or tingling in arms or legs, generalized arthralgias or myalgias, back or neck pain, or night sweats. The review of systems is otherwise negative other than for that already noted above, and at least 10 systems have been reviewed. Physical Exam Physical Exam: The patient is awake, alert and oriented 3, well developed and well nourished, normocephalic and atraumatic, lying in bed and in no acute distress. HEENT--PERRL, EOMI, mucous membranes and oropharynx dry. Neck--supple. No JVD. No bruits. Thyroid normal, trachea midline, no adenopathy. Heart--normal S1 and S2. No murmurs, rubs or gallops. Lungs-- overall diminished throughout. No respiratory distress, no accessory muscle use. Abdomen--normal bowel sounds and soft. Nontender. Nondistended. Mildly obese Extremities--No edema. Dermatologic--scabbed abrasion left alfonso Neurologic--cranial nerves II through XII grossly intact. Rheumatologic--normal range of motion. Psychiatric--normal affect. Results & Data Results & Data Vital Signs (Past 12 Hours) Vital Signs Temp Pulse Pulse Resp BP BP Pulse Ox 08/05/23 03:07 94 08/05/23 02:57 89 08/05/23 02:50 37.1 C 84 24 141/88 H 94 08/05/23 02:50 80 L 08/05/23 02:50 37.1 C 84 24 141/88 H 94 08/05/23 02:50 O2 Del Method O2 Flow Rate 08/05/23 03:07 Nasal Cannula 4 08/05/23 02:57 08/05/23 02:50 Nasal Cannula 08/05/23 02:50 Room Air 08/05/23 02:50 Nasal Cannula 4 08/05/23 02:50 Nasal Cannula 4 Laboratory Results Laboratory Results WBC 13.16 K/ul (4.8-10.8) H 08/05/23 03:00 RBC 4.87 M/uL (4.70-6.10) 08/05/23 03:00 Hgb 15.8 g/dl (14.0-18.0) 08/05/23 03:00 Hct 48.7 % (42.0-52.0) 08/05/23 03:00 MCV 100.0 fL (80.0-100.0) 08/05/23 03:00 MCH 32.4 pg (25.0-34.0) 08/05/23 03:00 MCHC 32.4 g/dL (32.0-36.0) 08/05/23 03:00 RDW Std Deviation 58.7 fL (36.4-46.3) H 08/05/23 03:00 RDW Coeff of Pj 16.0 % (11.5-14.5) H 08/05/23 03:00 Plt Count 242 K/uL (130-400) 08/05/23 03:00 MPV 11.0 fL (9.4-12.4) 08/05/23 03:00 Immature Gran % (Auto) 0.6 % 08/05/23 03:00 Neut % (Auto) 74.9 % 08/05/23 03:00 Lymph % (Auto) 11.6 % 08/05/23 03:00 [place] % (Auto) 10.1 % 08/05/23 03:00 Eos % (Auto) 1.7 % 08/05/23 03:00 Baso % (Auto) 1.1 % 08/05/23 03:00 Neut # (Auto) 9.85 K/uL (1.40-6.50) H 08/05/23 03:00 Lymph # (Auto) 1.53 K/uL (1.20-3.40) 08/05/23 03:00 [place] # (Auto) 1.33 K/uL (0.11-0.59) H 08/05/23 03:00 Eos # (Auto) 0.22 K/uL (0.00-0.50) 08/05/23 03:00 Baso # (Auto) 0.15 K/uL (0.00-0.20) 08/05/23 03:00 Immature Gran # (Auto) 0.08 K/uL (0.01-0.20) 08/05/23 03:00 Sodium 134 mmol/L (136-145) L 08/05/23 03:00 Potassium 4.7 mmol/L (3.5-5.1) 08/05/23 03:00 Chloride 94 mmol/L (98-107) L 08/05/23 03:00 Carbon Dioxide 33 mmol/L (21-32) H 08/05/23 03:00 Anion Gap 7 (3-11) 08/05/23 03:00 BUN 46 mg/dl (6-23) H 08/05/23 03:00 Creatinine 1.90 mg/dl (0.6-1.4) H 08/05/23 03:00 Est Cr Clr Drug Dosing 32.7 ml/min 08/05/23 03:00 Est GFR ( Amer) 36.7 ml/min 08/05/23 03:00 Est GFR (Non-Af Amer) 31.7 ml/min 08/05/23 03:00 BUN/Creatinine Ratio 24.2 (10-20) H 08/05/23 03:00 Glucose 237 mg/dl (70-99(Fasting)) H 08/05/23 03:00 Calcium 9.4 mg/dl (8.6-10.3) 08/05/23 03:00 Total Bilirubin 1.0 mg/dl (0.2-1.0) 08/05/23 03:00 AST 33 U/L (13-39) 08/05/23 03:00 ALT 23 U/L (7-52) 08/05/23 03:00 Alkaline Phosphatase 159 U/L (34-104) H 08/05/23 03:00 Troponin I High Sens 111.4 pg/ml (0-20) H* 08/05/23 03:00 B-Natriuretic Peptide 4663 pg/ml (0-100) H 08/05/23 03:00 Total Protein 7.3 gm/dl (6.0-8.3) 08/05/23 03:00 Albumin 3.8 gm/dl (3.4-5.0) 08/05/23 03:00 Globulin 3.5 gm/dl (2.5-4.0) 08/05/23 03:00 Albumin/Globulin Ratio 1.1 (0.9-2) 08/05/23 03:00 Lipase 20 U/L (11-82) 08/05/23 03:00 Code Status & VTE Plan Code Status Full code VTE Prophylaxis Plan VTE Prophylaxis will be ordered: Yes PG Care Time/CCT Total # of Minutes Spent Total Time Spent with Patient: Total time spent is greater than 50% in coordination of care (as documented) at patient's floor/unit and/or counseling patient: Coding Level of Care Code 79833 INT INP/OBS CARE MIN Diagnoses Acute and chronic respiratory failure with hypoxia J96.21 Acute HFrEF (heart failure with reduced ejection fraction) I50.21 CAD, multiple vessel I25.10 Cardiomyopathy I42.9 Diabetes mellitus, type 2 E11.9 COPD exacerbation J44.1 Hypertension I10 Acquired hypothyroidism E03.9 Hypothyroidism type: acquired Complete heart block I44.2 Status post placement of cardiac pacemaker Z95.0 Mixed restrictive and obstructive lung disease J43.9; J98.4 Chronic kidney disease, stage 4 (severe) N18.4 (8) Hypothyroidism Hypothyroidism type: acquired Qualified Code(s): E03.9 - Hypothyroidism, unspecified
[2023-08-05] MEDS: NITROGLYCERIN 2% OINTMENT 30GM TUBE EXT SCH (05:43)
[2023-08-05 06:00] LABS: Adenovirus PCR Not Detected (NotDetected); Bordetella parapertussis PCR Not Detected (NotDetected); Bordetella pertussis PCR Not Detected (NotDetected); Chlamydia pneumoniae PCR Not Detected (NotDetected); Coronavirus 229E PCR Not Detected (NotDetected); Coronavirus CoV-2 (COVID19)PCR Not Detected (NotDetected); Coronavirus HKU1 PCR Not Detected (NotDetected); Coronavirus NL63 PCR Not Detected (NotDetected); Coronavirus OC43PCR Not Detected (NotDetected); Human Metapneumovirus PCR Not Detected (NotDetected); Influenza A PCR Not Detected (NotDetected); Influenza B PCR Not Detected (NotDetected); Mycoplasma pneumoniae PCR Not Detected (NotDetected); Parainfluenza Virus 1 PCR Not Detected (NotDetected); Parainfluenza Virus 2 PCR Not Detected (NotDetected); Parainfluenza Virus 3 PCR Not Detected (NotDetected); Parainfluenza Virus 4 PCR Not Detected (NotDetected); Respiratory Syncytial VirusPCR Not Detected (NotDetected); Rhinovirus/Enterovirus PCR Not Detected (NotDetected)
[2023-08-05] MEDS ORDERED: GLUCAGON FOR INJ 1 MG VIAL SQ PRN (06:16)
[2023-08-05] MEDS ORDERED: DEXTROSE 50% 50 ML SYRINGE IV PRN (06:16)
[2023-08-05] MEDS ORDERED: GLUCOSE 10 TAB/TUBE PO PRN (06:16)
[2023-08-05] MEDS ORDERED: NITROGLYCERIN SL 0.4 MG/TAB TAB SL PRN (06:16)
[2023-08-05] MEDS ORDERED: GLUCOSE 40% GEL 15 GM TUBE PO PRN (06:16)
[2023-08-05] MEDS ORDERED: CARBOHYDRATES FOR HYPOGLYCEMIA PO PRN (06:16)
[2023-08-05] MEDS ORDERED: ONDANSETRON INJ 2 MG/ML 2 ML VIAL IV PRN (06:16)
--- NOTE | 2023-08-05 07:22 | Hospitalist Progress Note ---
Date of Service August 05, 2023 Assessment & Plan (1) Acute and chronic respiratory failure with hypoxia: (2) Acute HFrEF (heart failure with reduced ejection fraction): (3) Cardiomyopathy: (4) Diabetes mellitus, type 2: (5) COPD exacerbation: (6) Hypothyroidism: (7) Complete heart block: (8) Status post placement of cardiac pacemaker: (9) Mixed restrictive and obstructive lung disease: (10) Chronic kidney disease, stage 4 (severe): Plan: The patient is an 83-year-old male with a past medical history including AAA, asymptomatic carotid artery stenosis, diabetic nephropathy, panic disorder without agoraphobia, pulmonary nodules, diabetes mellitus type 2 with hypoglycemia, complete heart block status post pacemaker, mixed restrictive and obstructive lung disease, vitamin D deficiency and CKD stage IV admitted due to acute CHF exacerbation Acute HFrEF exacerbation chronically elevated troponin cardiomyopathy Acute on chronic respiratory failure with hypoxia Chest pain Baseline 3 L nasal cannula oxygen at rest, and increases up to 6 L oxygen as needed for activity Continue cardiac rhythm monitoring BMP 4665 Troponin elevation and chest pain secondary to demand ischemia in heart failure Most recent echo on 07/21/2023: Ejection fraction 25-30%, severe global hypokinesis on the left ventricle. The right ventricle systolic function is severely reduced. Bumex 1 mg IV twice daily Continue apixaban 2.5 mg p.o, aspirin 81 mg every other day, carvedilol 12.5 mg p.o. twice daily Nitropaste 1 inch to anterior chest wall every 6 hours Consult cardiology, appreciate recommendations Consult Palliative Care: For discussion of goals of care in the setting of worsening COPD and CHF left pleural effusion - CXR 08/04-Left larger than right pleural effusions with dependent consolidation. - seem to had been increased compared from the prev on 07/20 - IV Bumex mg BID CAD/hypertension - Continue aspirin, Carvedilol COPD exacerbation/mixed restrictive and obstructive lung disease/question of pulmonary hypertension- Continue Trelegy Ellipta 1 elation daily, and albuterol HFA 2 puffs 4 times daily as needed Paroxysmal atrial flutter-fibrillation - Currently rate controlled - Continue home Mexiletine and Carvedilol - Continue home eliquis Diabetes mellitus- Continue glargine 12 units subcu in the evening Hold regular insulin 12 units subcu 3 times daily with meals Placed on Accu-Cheks with NovoLog SSI CKD stage IV- Creatinine 1.90 on admission, - Follows Nephrology - Dr. Westbrook - Baseline Creatinine ~2.2 - CMP am DVT prophylaxis: Eliquis Diet: Heart Healthy, Carb consistent Code: Full code Admission and Anticipated Discharge Date Admission Date: August 05, 2023 Supervising Physician Co-Signing Physician Notes Attending Physician Supervision Note: I independently interviewed and examined the patient and verified the lamar history and physical, reviewed labs and image studies and agree with findings and care plan noted above. Acute on chronic HFrEF/Bilateral pleural effusion - continue diuresis. -continue coreg, bumex, PAF -coreg, mexiletine, apixaban Trop elevation from demand ischemia -evaluated by cardio - not a candidate for [facility]. -nitro, aspirin, statin, coreg COPD -Home meds. Chronic respiratory failure - continue supplemental O2. CKD4 - monitor renal function. Goals of care - -cardio recommending palliative care consult. Subjective 83 y/o here due to acute CHF exacerbation and COPD exacerbation with increase oxygen requirements chest pain and edema. Patient evaluated this morning he was found awake in NAD. Talking comfortable, no dyspnea on rest. Refers chest pain feels better and not as uncomfortable as before. He denied feeling worsen SOB and feel comfortable. He refers that he didn't wanted to come to the hospital and would like to avoid returning to the hospital. Palliative care was consulted. Review of Systems Review of Systems: as per hpi Physical Exam Respiratory: no respiratory distress Auscultation: + crackles (Right lower lobe) On nasal canula, no dyspnea while taking Cardiovascular: Heart Sounds: normal S1 and normal S2; no murmur Extremities: + edema Gastrointestinal (Abdomen): normal bowel sounds, soft, nontender, no hepatosplenomegaly Skin: no rashes, warm and dry Results & Data Results & Data Vital Signs (Past 12 Hours) Vital Signs Temp Pulse Pulse Resp BP BP Pulse Ox 08/05/23 07:13 78 08/05/23 06:40 08/05/23 06:40 82 18 137/92 91 08/05/23 05:46 80 20 127/96 93 08/05/23 03:07 94 08/05/23 02:57 89 08/05/23 02:50 37.1 C 84 24 141/88 H 94 08/05/23 02:50 80 L 08/05/23 02:50 37.1 C 84 24 141/88 H 94 08/05/23 02:50 Pulse Ox O2 Del Method O2 Del Method O2 Flow Rate O2 Flow Rate 08/05/23 07:13 08/05/23 06:40 91 Nasal Cannula 4 08/05/23 06:40 Nasal Cannula 4 08/05/23 05:46 Nasal Cannula 4 08/05/23 03:07 Nasal Cannula 4 08/05/23 02:57 08/05/23 02:50 Nasal Cannula 08/05/23 02:50 Room Air 08/05/23 02:50 Nasal Cannula 4 08/05/23 02:50 Nasal Cannula 4 Resident Activity Tracking Resident Involvement: Resident Care Provided Care Provided: Adult Hospital Medicine (6) Hypothyroidism Hypothyroidism type: acquired Qualified Code(s): E03.9 - Hypothyroidism, unspecified
--- NOTE | 2023-08-05 07:25 | XRay Report ---
SINGLE VIEW CHEST CLINICAL HISTORY: Atypical chest pain. FINDINGS: An AP, portable, upright chest radiograph is compared to study dated 07/21/2023. A 3-lead ca rdiac pacemaker is unchanged in position. The heart is enlarged noting atherosclerotic calcification of the thoracic aorta. There is pulmonary vascular congestion. Emphysema and chronic interstitial thi ckening is similar to previous. There are left large right pleural effusions with dependent consolida tion. No pneumothorax is seen. The skeletal structures are osteopenic. The bony thorax is grossly int act. Arthritic change is seen in the shoulders. IMPRESSION: 1. Cardiomegaly and cardiac pacemaker with evidence of congestive failure. 2. Left larger than right pleural effusions with dependent consolidation. 3. Emphysema. ACT 112: Negative or not required by law. Electronically signed by: Vince Vázquez M.D. 08/05/2023 7:24 AM
[2023-08-05] MEDS: carvediloL 12.5 MG TAB PO SCH (08:36)
[2023-08-05] MEDS: ASPIRIN 81 MG ECTAB PO SCH (08:36)
[2023-08-05] MEDS: APIXABAN 2.5 MG TAB PO SCH (08:36)
[2023-08-05] MEDS: ROSUVASTATIN CALCIUM 5 MG TAB PO SCH (08:36)
[2023-08-05] MEDS: MEXILETINE HCL 150 MG CAPSULE PO SCH (08:37)
[2023-08-05] MEDS: FLUTICASONE FUROATE 200MCG 14 PUFFS/INHALER INH SCH (08:37)
[2023-08-05] MEDS: LEVOTHYROXINE SODIUM 50 MCG TABLET PO SCH (08:37)
[2023-08-05] MEDS ORDERED: FLUTICASONE FUROATE 200MCG 14 PUFFS/INHALER INH SCH (09:00)
[2023-08-05] MEDS: INSULIN ASPART PER UNIT CHARGE SC SCH (09:16)
[2023-08-05] MEDS: BUMETANIDE 1 MG in SYRINGE 0 ML IV SCH (10:59)
[2023-08-05] MEDS: UMECLIDINIUM/VILANTEROL 62.5/25MCG 7 PUFFS/INHALER INH SCH (10:59)
--- NOTE | 2023-08-05 12:17 | Cardiology Consultation ---
Date of Consultation August 05, 2023 Assessment & Plan (1) Systolic heart failure: (2) CAD (coronary artery disease): (3) Afib: (4) Chronic respiratory failure with hypoxia: Plan Pmhx: 1. Coronary disease status post angioplasty and stenting with 2 drug eluting stents of the proximal to mid LAD and 1 in the right coronary artery (07/2011). 2. Cardiac catheterization 06/2018: Patent RCA and LAD stents, status post drug-eluting stent to the mid circumflex with plain old balloon angioplasty at the bifurcation with OM2 secondary to a small non-ST elevation myocardial infarction. 3. Diabetes mellitus type 2. 4. Abdominal aortic aneurysm measuring 5.5 cm status post EVAR, 08/2011. 5. 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 No significant hemodynamic stenosis of the internal carotid arteries with retrograde flow in the left vertebral and blunted flow in the right vertebral. 7. Hypertension. 8. Hyperlipidemia, intolerant to all statins and red yeast rice. 9. Low HDL. 10. History of bilateral renal artery stenosis status post bilateral renal artery stenting in 2012 with high grade in-stent restenosis of his right proximal renal artery and no significant restenosis of the left renal artery. 11. Severe COPD 12. Chronic kidney disease stage III. 13. Normal biventricular size and function, EF 55-60% March 2020. 14. Complete heart block 03/25/20 status post [employer] [place] MRI compatible pacemaker with short episodes of paroxysmal atrial fibrillation; Upgraded to BiV Pacer 01/2023 secondary to new severe LV dysfunction 15. Small circumferential pericardial effusion by echo 05/24/20 with normal RV and LV function. 16. ECHO [facility] 07/20/2022 LVEF 25-30% with [employer] Saravanan looks fatigued and ill. He feels very tired. His sob and pain has resolved at this point. He is in systolic heart failure and should be diuresed until his creatinine starts to bump. He is at risk for kidney injury given his chronic kidney disease but we will have to accept some worsening prerenal azotemia to improve his fluid volume. His supplemental O2 requirements have come down to 4 L from 6L. He had a mildly elevated troponin and chest pain likely due to demand ischemia in the setting of heart failure. Given his comorbidities and frailty, he is not a cardiac catheterization candidate and should be treated medically. He is currently wearing nitro paste, this can be changed over to Imdur. He is anticoagulated with apixaban, no need for heparin gtt. He is pacing on the monitor. He is continued on mexilitine for control of his frequent PVCs as well as Coreg. I discussed with him that with the progression of both his copd and heart failure, he might think about whether he wants to keep returning to the hospital and whether hospice or a more palliative approach might be a better fit for him, depending on his goals at this point and going into the future. Palliative care has been consulted. History of Present Illness Attending Physician: Maria T Cassidy MD History of Present Illness Mr. Lynn presented to the ED yesterday for complaints of chest pain and shortness of breath. He notes that he had pain in his back as well. He was discharged from [facility] 07/23 for a CHF exacerbation. His troponin peaked at 111.4, his BNP was 4663 on admission. His CXR demonstrated pulmonary congestion. Currently he is pain free and less sob. He is pacing on the monitor. Allergies Allergy/AdvReac Type Severity Reaction Status Date / Time No Known Allergies Allergy Verified 08/05/23 03:12 Home Medications Medication Instructions Recorded Confirmed Type aspirin 81 mg tablet,delayed 81 mg PO Q OTHER DAY 05/23/18 08/05/23 History release flash glucose sensor (FreeStyle #1 ea 06/18/20 07/30/23 Rx Maritza 14 Day Sensor kit) Portable Oxygen E0431 #1 ea 11/12/20 07/30/23 Rx apixaban 2.5 mg tablet (Eliquis) 2.5 mg PO BID 05/13/21 08/05/23 History fluticasone fur. 200 mcg-umeclid 1 inh inhalation DAILY #3 Inhalers 05/15/22 08/05/23 Rx 62.5 mcg-vilant 25 mcg inhalat.powder (Trelegy Ellipta) alprazolam 0.5 mg tablet 0.5 mg PO BID PRN anxiety #180 tabs 12/31/22 08/05/23 Rx flash glucose sensor (FreeStyle 01/05/23 07/30/23 History Maritza 14 Day Sensor kit) insulin regular human 100 unit/mL 12 unit subcut TIDM 01/05/23 08/05/23 History injection solution (Novolin R Regular U-100 Insulin) pen needle, diabetic 32 gauge x #100 ea 04/29/23 07/30/23 Rx 5/32" (BD Ultra-Fine [place] Pen Needle) levothyroxine 50 mcg tablet 50 mcg PO DAILY #90 tabs 04/30/23 08/05/23 Rx bumetanide 1 mg tablet 2 mg (2 x 1 mg) PO QAM #180 tabs 05/06/23 08/05/23 Rx albuterol sulfate 90 mcg/actuation 2 puff inhalation QID PRN 06/22/23 08/05/23 Rx aerosol inhaler (Ventolin HFA) shortness of breath or wheezing #54 grams mexiletine 150 mg capsule 150 mg PO Q12H antiarrhythmic 06/30/23 08/05/23 History insulin glargine 100 unit/mL (3 12 unit subcut QPM 07/24/23 08/05/23 History mL) subcutaneous pen (Lantus Solostar U-100 Insulin) nitroglycerin 0.4 mg sublingual 0.4 mg sublingual UD PRN chest 07/24/23 08/05/23 Rx tablet (Nitrostat) pain #30 Tabs rosuvastatin 5 mg tablet 5 mg PO DAILY #90 tabs 07/27/23 08/05/23 Rx carvedilol 12.5 mg tablet 12.5 mg PO BID #180 tabs 07/30/23 08/05/23 Rx blood-glucose meter,continuous #1 ea 08/03/23 Rx (FreeStyle Maritza 3 [place]) blood-glucose sensor (FreeStyle #2 ea 08/03/23 Rx Maritza 3 Sensor device) Patient History Medical History (Updated 08/05/23 @ 18:30 by Anne Spence DO) Chronic respiratory failure with hypoxia Paroxysmal atrial flutter Cardiomyopathy Acute HFrEF (heart failure with reduced ejection fraction) COPD with emphysema Hypothyroidism SOB (shortness of breath) Chronic kidney disease, stage 4 (severe) SOB (shortness of breath) CHF (congestive heart failure) Hypoxia Community acquired pneumonia Elevated troponin MARJORIE (acute kidney injury) Tobacco use disorder Uncontrolled type 2 diabetes mellitus Steroid-induced hyperglycemia Pulmonary nodule Proteinuria Pre-operative exam Panic disorder without agoraphobia Male erectile disorder of organic origin Hyperkalemia Hypercholesterolemia Herpes zoster Enteritis Elevated PSA Edema Diverticulitis of colon Diabetic nephropathy Chronic kidney disease, stage III (moderate) Carotid artery stenosis, asymptomatic CAD, multiple vessel Benign prostatic hyperplasia with elevated prostate specific antigen (PSA) Aneurysm of abdominal aorta Anemia Chronic kidney disease Diabetes mellitus, type 2 Chronic obstructive pulmonary disease Peripheral vascular disease Myocardial Infarction Hyperlipidemia Non-ST elevation MA (NSTEMI) Hypertension Surgical History (Updated 07/31/23 @ 00:09 by Tosha Domingo) History of partial colectomy H/O aortic aneurysm repair Stented coronary artery Family History Mother Coronary heart disease COPD (chronic obstructive pulmonary disease) Father Diabetes Brother Unknown family medical history Other Diabetes mellitus type 1 Heart disease Denies family history of Ovarian cancer Prostate cancer Myocardial infarction Breast cancer Colorectal cancer Cancer Social History Smoking Status: Former smoker Tobacco Type: Cigarettes Age Started Using Tobacco: 15; Age Quit Using Tobacco: 70; packs per day: 1; Second Hand Exposure: No; Do You Dip or Chew Tobacco: No; Hx Alcohol Use: No Hx Substance Use: No Preferred Language: Barbadian Communication Ability: Effective Visual Impairment: No Limitations Hearing Ability: Normal [employer] Required: No Beliefs That Will Affect Care: None marital status: Current Living Situation: Spouse current occupational status: retired current occupation: Retired from career with [employer] Feels Safe at Home: Yes Childhood Exposure to Second-Hand Smoke: Yes Diet: regular caffeine: Yes Dental Care, Regularly: No Physical Activity Frequency: Does not Exercise Seatbelt Use: always Sunscreen Use: No Assistive Devices: Oxygen - Continuous and Walker Review of Systems Review of Systems: All systems reviewed & are unremarkable except as noted in HPI & below Physical Exam Constitutional: + ill appearing Respiratory: normal respiratory effort, lungs clear to auscultation Cardiovascular: RRR, no murmur, no edema Skin: no rashes, warm and dry Neurologic: moves all extremities and awake Psychiatric: A+Ox3, euthymic affect Results & Data Vital Signs (Past 12 Hours) Vital Signs Temp Pulse Pulse Resp BP BP Pulse Ox 08/05/23 10:48 36.8 C 71 20 122/72 98 08/05/23 07:45 92 08/05/23 07:45 08/05/23 07:45 36.8 C 75 22 135/85 92 08/05/23 07:13 78 08/05/23 06:40 08/05/23 06:40 82 18 137/92 91 08/05/23 05:46 80 20 127/96 93 08/05/23 03:07 94 08/05/23 02:57 89 08/05/23 02:50 37.1 C 84 24 141/88 H 94 08/05/23 02:50 80 L 08/05/23 02:50 37.1 C 84 24 141/88 H 94 08/05/23 02:50 Pulse Ox O2 Del Method O2 Del Method O2 Flow Rate O2 Flow Rate 08/05/23 10:48 Nasal Cannula 4 08/05/23 07:45 Nasal Cannula 4 08/05/23 07:45 Nasal Cannula 4 08/05/23 07:45 Nasal Cannula 4 08/05/23 07:13 08/05/23 06:40 91 Nasal Cannula 4 08/05/23 06:40 Nasal Cannula 4 08/05/23 05:46 Nasal Cannula 4 08/05/23 03:07 Nasal Cannula 4 08/05/23 02:57 08/05/23 02:50 Nasal Cannula 08/05/23 02:50 Room Air 08/05/23 02:50 Nasal Cannula 4 08/05/23 02:50 Nasal Cannula 4
[2023-08-05] MEDS: LANTUS PER UNIT CHARGE SC SCH (20:43)
[2023-08-05] MEDS: ACETAMINOPHEN 325 MG TAB PO PRN (23:25)
[2023-08-06] MEDS: ONDANSETRON INJ 2 MG/ML 2 ML VIAL ONE (06:19)
[2023-08-06 06:50] LABS: Basophils # (auto) 0.12 K/uL (0.00-0.20); Basophils % (auto) 1.3 %; Eosinophils # (auto) 0.28 K/uL (0.00-0.50); Hematocrit (blood only) 40.8 % (42.0-52.0); Hemoglobin 13.8 g/dl (14.0-18.0); Immature Granulocytes # (auto) 0.04 K/uL (0.01-0.20); Immature Granulocytes % (auto) 0.4 %; Lymphocytes # (auto) 1.96 K/uL (1.20-3.40); Lymphocytes % (auto) 21.1 %; Mean Corpuscular Hemoglobin 33.3 pg (25.0-34.0); Mean Corpuscular Hgb Conc 33.8 g/dL (32.0-36.0); Mean Corpuscular Volume 98.3 fL (80.0-100.0); Mean Platelet Volume 11.3 fL (9.4-12.4); Monocytes # (auto) 0.88 K/uL (0.11-0.59); Monocytes % (auto) 9.5 %; Neutrophils # (auto) 6.02 K/uL (1.40-6.50); Neutrophils % (auto) 64.7 %; Nucleated RBC # (auto) 0.02 K/uL (0.00-0.12); Nucleated RBC % (auto) 0.2 %; Platelet Count 231 K/uL (130-400); Red Blood Count 4.15 M/uL (4.70-6.10)
[2023-08-06 07:11] LABS: Albumin Level 3.1 gm/dl (3.4-5.0); BUN Creatinine Ratio 24.5 (10-20); Calcium 8.5 mg/dl (8.6-10.3); Creatinine Clr Calc Pharmacy 30.4 ml/min; Est GFR (African American) 33.7 ml/min; Est GFR (Non-African American) 29.1 ml/min; Magnesium 1.8 mg/dl (1.7-2.4); Phosphorus 4.2 mg/dl (2.5-4.9); Potassium 4.9 mmol/L (3.5-5.1)
[2023-08-06] MEDS: INSULIN ASPART PER UNIT CHARGE ONE (07:24)
[2023-08-06] MEDS: NITROGLYCERIN 2% OINTMENT 30GM TUBE EXT ONE (07:24)
--- NOTE | 2023-08-06 07:39 | Hospitalist Progress Note ---
Date of Service August 06, 2023 Assessment & Plan (1) Acute and chronic respiratory failure with hypoxia: (2) Acute HFrEF (heart failure with reduced ejection fraction): (3) Cardiomyopathy: (4) Diabetes mellitus, type 2: (5) COPD exacerbation: (6) Hypothyroidism: (7) Complete heart block: (8) Status post placement of cardiac pacemaker: (9) Mixed restrictive and obstructive lung disease: (10) Chronic kidney disease, stage 4 (severe): Plan: The patient is an 83-year-old male with a past medical history including AAA, asymptomatic carotid artery stenosis, diabetic nephropathy, panic disorder without agoraphobia, pulmonary nodules, diabetes mellitus type 2 with hypoglycemia, complete heart block status post pacemaker, mixed restrictive and obstructive lung disease, vitamin D deficiency and CKD stage IV admitted due to acute CHF exacerbation Acute HFrEF exacerbation chronically elevated troponin cardiomyopathy Acute on chronic respiratory failure with hypoxia Chest pain Baseline 3 L nasal cannula oxygen at rest, and increases up to 6 L oxygen as needed for activity BMP 4663 Troponin elevation and chest pain secondary to demand ischemia in heart failure Most recent echo on 07/21/2023: Ejection fraction 25-30%, severe global hypokinesis on the left ventricle. The right ventricle systolic function is severely reduced. Weight: no weight gained U/O: 0.58, Balance of fluid negative Continue apixaban 2.5 mg p.o, aspirin 81 mg every other day, carvedilol 12.5 mg p.o. twice daily Nitropaste 1 inch to anterior chest wall every 6 hours Consult cardiology, appreciate recommendations Consult Palliative Care: For discussion of goals of care in the setting of worsening COPD, CHF, CKD. Continue Bumex 1 mg IV twice daily Left pleural effusion - CXR 08/04-Left larger than right pleural effusions with dependent consolidation. - seem to had been increased compared from the prev on 07/20 - CXR repeat today: no change from yesterday - IV Bumex mg BID CAD/hypertension - Continue aspirin, Carvedilol COPD exacerbation/mixed restrictive and obstructive lung disease/question of pulmonary hypertension- Continue Trelegy Ellipta 1 elation daily, and albuterol HFA 2 puffs 4 times daily as needed Paroxysmal atrial flutter-fibrillation - Currently rate controlled - Continue home Mexiletine and Carvedilol - Continue home eliquis Diabetes mellitus- Continue glargine 12 units subcu in the evening Hold regular insulin 12 units subcu 3 times daily with meals Placed on Accu-Cheks with NovoLog SSI CKD stage IV- Creatinine 2.04 today - Follows Nephrology - Dr. Westbrook - Baseline Creatinine ~2.2 - CMP am DVT prophylaxis: Eliquis Diet: Heart Healthy, Carb consistent Code: Full code Admission and Anticipated Discharge Date Admission Date: August 05, 2023 Supervising Physician Co-Signing Physician Notes Attending Physician Supervision Note: I independently interviewed and examined the patient and verified the lamar histo ry and physical, reviewed labs and image studies and agree with findings and care plan noted above. Acute on chronic HFrEF/Bilateral pleural effusion - neg 1400ml. O2 need improving. -continue diuresis. creatinine stable -continue coreg, bumex, PAF -coreg, mexiletine, apixaban Trop elevation from demand ischemia -evaluated by cardio - not a candidate for [facility]. -nitro, aspirin, statin, coreg COPD -Home meds. Chronic respiratory failure - continue supplemental O2. CKD4 - monitor renal function. Goals of care - -palliative care consult placed per cardio recommendation. Subjective Mr. Lynn was evaluated this morning he was found awake in NAD. Talking comfortable, no dyspnea on rest. Denied any chest pain or palpitation. Continue on nasal cannula 3-4 L. Review of Systems Review of Systems: as per hpi Physical Exam Constitutional: WD/WN, vitals as above Respiratory: no respiratory distress Auscultation: + crackles (Right lower lobe) Cardiovascular: Heart Sounds: normal S1 and normal S2; no murmur Extremit ies: + edema Gastrointestinal (Abdomen): normal bowel sounds, soft, nontender, no hepatosplenomegaly Skin: no rashes, warm and dry Results & Data Results & Data Vital Signs (Past 12 Hours) Vital Signs Temp Pulse Pulse Resp BP Pulse Ox Pulse Ox 08/06/23 06:16 95 08/06/23 03:30 36.5 C 74 18 130/79 95 08/05/23 22:42 36.7 C 74 18 115/71 94 08/05/23 22:00 73 08/05/23 19:53 36.5 C 83 20 136/82 90 08/05/23 19:45 O2 Del Method O2 Del Method O2 Flow Rate O2 Flow Rate 08/06/23 06:16 Nasal Cannula 3 08/06/23 03:30 Nasal Cannula 3 08/05/23 22:42 Nasal Cannula 4 08/05/23 22:00 08/05/23 19:53 Nasal Cannula 6 08/05/23 19:45 Nasal Cannula 3.5 Resident Activity Tracking Resident Involvement: Resident Care Provided Care Provided: Adult Hospital Medicine (6) Hypothyroidism Hypothyroidism type: acquired Qualified Code(s): E03.9 - Hypothyroidism, unspecified
[2023-08-06] MEDS: ISOSORBIDE MONO EXTENDED REL 30 MG TABCR PO SCH (08:16)
--- NOTE | 2023-08-06 08:46 | XRay Report ---
SINGLE VIEW CHEST CLINICAL HISTORY: Pleural effusions FINDINGS: An AP, portable, upright chest radiograph is compared to study dated 08/05/2023. A 3-lead car diac pacemaker is unchanged in position. The heart is enlarged noting atherosclerotic calcification o f the thoracic aorta. Pulmonary vascular congestion persists. Emphysema and chronic interstitial thic kening is similar to previous. There are left large amount right pleural effusions with dependent con solidation. No pneumothorax is seen. The skeletal structures are osteopenic. The bony thorax is gross ly intact. Arthritic change is seen in the shoulders. IMPRESSION: 1. Cardiomegaly and cardiac pacemaker with persistent pulmonary vascular congestion. 2. Left larger than right pleural effusions with dependent consolidation. This is similar to previous . 3. Emphysema. ACT 112: Negative or not required by law. Electronically signed by: Vince Vázquez M.D. 08/06/2023 8:45 AM
[2023-08-07 06:48] LABS: Basophils # (auto) 0.11 K/uL (0.00-0.20); Basophils % (auto) 1.1 %; Eosinophils # (auto) 0.25 K/uL (0.00-0.50); Eosinophils % (auto) 2.6 %; Hematocrit (blood only) 42.8 % (42.0-52.0); Hemoglobin 14.4 g/dl (14.0-18.0); Immature Granulocytes # (auto) 0.05 K/uL (0.01-0.20); Immature Granulocytes % (auto) 0.5 %; Lymphocytes # (auto) 1.76 K/uL (1.20-3.40); Mean Corpuscular Hgb Conc 33.6 g/dL (32.0-36.0); Mean Corpuscular Volume 98.2 fL (80.0-100.0); Mean Platelet Volume 10.7 fL (9.4-12.4); Monocytes # (auto) 0.88 K/uL (0.11-0.59); Neutrophils # (auto) 6.74 K/uL (1.40-6.50); Neutrophils % (auto) 68.8 %; Platelet Count 218 K/uL (130-400); RDW Coefficient of Variation 15.9 % (11.5-14.5); RDW Standard Deviation 57.7 fL (36.4-46.3); Red Blood Count 4.36 M/uL (4.70-6.10); White Blood Count 9.79 K/ul (4.8-10.8)
--- NOTE | 2023-08-07 07:07 | History & Physical Report ---
Date of Service August 07, 2023 Assessment & Plan (1) Acute and chronic respiratory failure with hypoxia: (2) Acute HFrEF (heart failure with reduced ejection fraction): (3) Cardiomyopathy: (4) Diabetes mellitus, type 2: (5) COPD exacerbation: (6) Hypothyroidism: (7) Complete heart block: (8) Status post placement of cardiac pacemaker: (9) Mixed restrictive and obstructive lung disease: (10) Chronic kidney disease, stage 4 (severe): Plan: The patient is an 83-year-old male with a past medical history including AAA, asymptomatic carotid artery stenosis, diabetic nephropathy, panic disorder without agoraphobia, pulmonary nodules, diabetes mellitus type 2 with hypoglycemia, complete heart block status post pacemaker, mixed restrictive and obstructive lung disease, vitamin D deficiency and CKD stage IV admitted due to acute CHF exacerbation Acute HFrEF exacerbation chronically elevated troponin cardiomyopathy Acute on chronic respiratory failure with hypoxia Chest pain Baseline 3 L nasal cannula oxygen at rest, and increases up to 6 L oxygen as needed for activity BMP 4663 Troponin elevation and chest pain secondary to demand ischemia in heart failure Most recent echo on 07/21/2023: Ejection fraction 25-30%, severe global hypokinesis on the left ventricle. The right ventricle systolic function is severely reduced. Weight: no weight gained U/O: 0.58, Balance of fluid negative Continue apixaban 2.5 mg p.o, aspirin 81 mg every other day, carvedilol 12.5 mg p.o. twice daily Nitropaste 1 inch to anterior chest wall every 6 hours Consult cardiology, appreciate recommendations Consult Palliative Care: For discussion of goals of care in the setting of worsening COPD, CHF, CKD. Continue Bumex 1 mg IV twice daily Left pleural effusion - CXR 08/04-Left larger than right pleural effusions with dependent consolidation. - seem to had been increased compared from the prev on 07/20 - CXR repeat today: no change from yesterday - IV Bumex mg BID CAD/hypertension - Continue aspirin, Carvedilol COPD exacerbation/mixed restrictive and obstructive lung disease/question of pulmonary hypertension- Continue Trelegy Ellipta 1 elation daily, and albuterol HFA 2 puffs 4 times daily as needed Paroxysmal atrial flutter-fibrillation - Currently rate controlled - Continue home Mexiletine and Carvedilol - Continue home eliquis Diabetes mellitus- Continue glargine 12 units subcu in the evening Hold regular insulin 12 units subcu 3 times daily with meals Placed on Accu-Cheks with NovoLog SSI CKD stage IV- Creatinine 2.04 today - Follows Nephrology - Dr. Westbrook - Baseline Creatinine ~2.2 - CMP am DVT prophylaxis: Eliquis Diet: Heart Healthy, Carb consistent Code: Full code Admission and Anticipated Discharge Date Admission Date: August 05, 2023 History of Present Illness Primary Care Provider: Gene Calvo MD Allergies Allergy/AdvReac Type Severity Reaction Status Date / Time No Known Allergies Allergy Verified 08/05/23 03:12 Home Medications Medication Instructions Recorded Confirmed Type aspirin 81 mg tablet,delayed 81 mg PO Q OTHER DAY 05/23/18 08/05/23 History release flash glucose sensor (FreeStyle #1 ea 06/18/20 07/30/23 Rx Maritza 14 Day Sensor kit) Portable Oxygen E0431 #1 ea 11/12/20 07/30/23 Rx apixaban 2.5 mg tablet (Eliquis) 2.5 mg PO BID 05/13/21 08/05/23 History fluticasone fur. 200 mcg-umeclid 1 inh inhalation DAILY #3 Inhalers 05/15/22 08/05/23 Rx 62.5 mcg-vilant 25 mcg inhalat.powder (Trelegy Ellipta) alprazolam 0.5 mg tablet 0.5 mg PO BID PRN anxiety #180 tabs 12/31/22 08/05/23 Rx flash glucose sensor (FreeStyle 01/05/23 07/30/23 History Maritza 14 Day Sensor kit) insulin regular human 100 unit/mL 12 unit subcut TIDM 01/05/23 08/05/23 History injection solution (Novolin R Regular U-100 Insulin) pen needle, diabetic 32 gauge x #100 ea 04/29/23 07/30/23 Rx 5/32" (BD Ultra-Fine [place] Pen Needle) levothyroxine 50 mcg tablet 50 mcg PO DAILY #90 tabs 04/30/23 08/05/23 Rx bumetanide 1 mg tablet 2 mg (2 x 1 mg) PO QAM #180 tabs 05/06/23 08/05/23 Rx albuterol sulfate 90 mcg/actuation 2 puff inhalation QID PRN 06/22/23 08/05/23 Rx aerosol inhaler (Ventolin HFA) shortness of breath or wheezing #54 grams mexiletine 150 mg capsule 150 mg PO Q12H antiarrhythmic 06/30/23 08/05/23 History insulin glargine 100 unit/mL (3 12 unit subcut QPM 07/24/23 08/05/23 History mL) subcutaneous pen (Lantus Solostar U-100 Insulin) nitroglycerin 0.4 mg sublingual 0.4 mg sublingual UD PRN chest 07/24/23 08/05/23 Rx tablet (Nitrostat) pain #30 Tabs rosuvastatin 5 mg tablet 5 mg PO DAILY #90 tabs 07/27/23 08/05/23 Rx carvedilol 12.5 mg tablet 12.5 mg PO BID #180 tabs 07/30/23 08/05/23 Rx blood-glucose meter,continuous #1 ea 08/03/23 Rx (FreeStyle Maritza 3 [place]) blood-glucose sensor (FreeStyle #2 ea 08/03/23 Rx Maritza 3 Sensor device) Past Med/Surg History Medical History (Updated 08/05/23 @ 18:30 by Anne Spence DO) Chronic respiratory failure with hypoxia Paroxysmal atrial flutter Cardiomyopathy Acute HFrEF (heart failure with reduced ejection fraction) COPD with emphysema Hypothyroidism SOB (shortness of breath) Chronic kidney disease, stage 4 (severe) SOB (shortness of breath) CHF (congestive heart failure) Hypoxia Community acquired pneumonia Elevated troponin MARJORIE (acute kidney injury) Tobacco use disorder Uncontrolled type 2 diabetes mellitus Steroid-induced hyperglycemia Pulmonary nodule Proteinuria Pre-operative exam Panic disorder without agoraphobia Male erectile disorder of organic origin Hyperkalemia Hypercholesterolemia Herpes zoster Enteritis Elevated PSA Edema Diverticulitis of colon Diabetic nephropathy Chronic kidney disease, stage III (moderate) Carotid artery stenosis, asymptomatic CAD, multiple vessel Benign prostatic hyperplasia with elevated prostate specific antigen (PSA) Aneurysm of abdominal aorta Anemia Chronic kidney disease Diabetes mellitus, type 2 Chronic obstructive pulmonary disease Peripheral vascular disease Myocardial Infarction Hyperlipidemia Non-ST elevation PA (NSTEMI) Hypertension Surgical History (Updated 07/31/23 @ 00:09 by Tosha Domingo) History of partial colectomy H/O aortic aneurysm repair Stented coronary artery Family History Mother Coronary heart disease COPD (chronic obstructive pulmonary disease) Father Diabetes Brother Unknown family medical history Other Diabetes mellitus type 1 Heart disease Denies family history of Ovarian cancer Prostate cancer Myocardial infarction Breast cancer Colorectal cancer Cancer Social History Smoking Status: Former smoker Tobacco Type: Cigarettes Age Started Using Tobacco: 15; Age Quit Using Tobacco: 70; packs per day: 1; Second Hand Exposure: No; Do You Dip or Chew Tobacco: No; Hx Alcohol Use: No Hx Substance Use: No Preferred Language: Barbadian Communication Ability: Effective Visual Impairment: No Limitations Hearing Ability: Normal Tailoring 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 Required: No Beliefs That Will Affect Care: None marital status: Current Living Situation: Spouse current occupational status: retired current occupation: Retired from career with [employer] Feels Safe at Home: Yes Childhood Exposure to Second-Hand Smoke: Yes Diet: regular caffeine: Yes Dental Care, Regularly: No Physical Activity Frequency: Does not Exercise Seatbelt Use: always Sunscreen Use: No Assistive Devices: Oxygen - Continuous and Walker Results & Data Results & Data Vital Signs (Past 12 Hours) Vital Signs Temp Pulse Pulse Resp BP Pulse Ox Pulse Ox 08/07/23 06:00 89 L 08/07/23 02:30 36.5 C 76 20 103/71 90 08/06/23 22:39 36.7 C 72 18 122/79 94 08/06/23 22:00 75 08/06/23 19:18 36.4 C L 82 18 128/85 90 O2 Del Method O2 Del Method O2 Flow Rate O2 Flow Rate 08/07/23 06:00 Nasal Cannula 6 08/07/23 02:30 Nasal Cannula 4.0 08/06/23 22:39 Nasal Cannula 4.0 08/06/23 22:00 08/06/23 19:18 Nasal Cannula 4 Code Status & VTE Plan VTE Prophylaxis Plan VTE Prophylaxis will be ordered: Yes (6) Hypothyroidism Hypothyroidism type: acquired Qualified Code(s): E03.9 - Hypothyroidism, unspecified
[2023-08-07 07:16] LABS: Albumin Level 3.2 gm/dl (3.4-5.0); BUN Creatinine Ratio 24.6 (10-20); Calcium 8.5 mg/dl (8.6-10.3); Creatinine Clr Calc Pharmacy 27.4 ml/min; Est GFR (African American) 33.1 ml/min; Est GFR (Non-African American) 28.6 ml/min; Magnesium 1.7 mg/dl (1.7-2.4); Potassium 4.5 mmol/L (3.5-5.1)
--- NOTE | 2023-08-07 09:34 | Cardiology Progress Note ---
Date of Service August 07, 2023 Assessment & Plan Admission and Anticipated Discharge Date Admission Date: August 05, 2023 Subjective He is markedly short of breath. He has no further chest discomfort or chest p ain or scapular discomfort. He has no lightheadedness or dizziness. He notes his appetites been poor over the last number of weeks. As his notes he was home less than 2 weeks from his last hospitalization before being readmitted to the hospital. He needed the assistance of 2 individuals to get up off the bedside commode. At home he cannot get up out of bed by himself. Results & Data Vital Signs (Past 12 Hours) Vital Signs Temp Pulse Pulse Resp BP Pulse Ox Pulse Ox 08/07/23 07:11 36.7 C 85 20 162/98 H 94 08/07/23 06:00 89 L 08/07/23 02:30 36.5 C 76 20 103/71 90 08/06/23 22:39 36.7 C 72 18 122/79 94 08/06/23 22:00 75 O2 Del Method O2 Del Method O2 Flow Rate O2 Flow Rate 08/07/23 07:11 Nasal Cannula 5 08/07/23 06:00 Nasal Cannula 6 08/07/23 02:30 Nasal Cannula 4.0 08/06/23 22:39 Nasal Cannula 4.0 08/06/23 22:00 he is significantly short of breath just talking in sentences. He got up out of the bedside commode to the bed with the assistance of 2 people and it took him over 10 minutes to calm his breathing. He is using extra respiratory muscles including his chest and his neck to breathe. HEENT: Markedly reduced carotid upstrokes Lungs: Decreased breath sounds in the bases left greater than right Heart: Irregular rate and rhythm no appreciable murmurs Abdomen: Soft mildly distended positive bowel sounds Extremities: Trace bilateral lower extremity edema Assessment & Plan (1) Systolic heart failure: (2) CAD (coronary artery disease): (3) Afib: (4) Chronic respiratory failure with hypoxia: Plan Pmhx: 1. Coronary disease status post angioplasty and stenting with 2 drug eluting stents of the proximal to mid LAD and 1 in the right coronary artery (07/2011). 2. Cardiac catheterization 06/2018: Patent RCA and LAD stents, status post drug-eluting stent to the mid circumflex with plain old balloon angioplasty at the bifurcation with OM2 secondary to a small non-ST elevation myocardial infarction. 3. Diabetes mellitus type 2. 4. Abdominal aortic aneurysm measuring 5.5 cm status post EVAR, 08/2011. 5. 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 No significant hemodynamic stenosis of the internal carotid arteries with retrograde flow in the left vertebral and blunted flow in the right vertebral. 7. Hypertension. 8. Hyperlipidemia, intolerant to all statins and red yeast rice. 9. Low HDL. 10. History of bilateral renal artery stenosis status post bilateral renal artery stenting in 2012 with high grade in-stent restenosis of his right proximal renal artery and no significant restenosis of the left renal artery. 11. Severe COPD 12. Chronic kidney disease stage III. 13. Normal biventricular size and function, EF 55-60% March 2020. 14. Complete heart block 03/25/20 status post [employer] Nicole MRI compatible pacemaker with short episodes of paroxysmal atrial fibrillation; Upgraded to BiV Pacer 01/2023 secondary to new severe LV dysfunction 15. Small circumferential pericardial effusion by echo 05/24/20 with normal RV and LV function. 16. ECHO [facility] 07/20/2022 LVEF 25-30% with [employer] The bulk of today's conversation was about palliative care and hospice. He is profoundly short of breath with minimal amounts of activity. His appetite is poor he has had multiple admissions for heart failure and hypoxemia. I discussed with both of them that I think hospice is his best option. He has severe LV and RV dysfunction, creatinine of 2, severe end-stage lung disease exacerbated by previous COVID infection and the need for oxygen up to 6 L. I think hospice is his best option. We discussed the idea of hospice and the fact that patients on hospice have an improved quality of life at the end of life. They have less pain and anxiety. And the family has a easier time with the bereavement process. Saravanan does not want to come back to the hospital. He is rather adamant about this. I think the challenge is how can he go home with hospice given the amount of sick assistance he currently needs. This was discussed with the nursing staff as well as case management. Hopefully the palliative care/hospice meeting today can assist them with trying to determine the best way to get him home safely. I discussed with both Saravanan and his the importance is that he be safe at home and that we mitigate his symptoms of heart failure, dyspnea, and angina. The patient seems in agreement to hospice although I do not think his is ready for this.
--- NOTE | 2023-08-07 10:11 | Palliative Care Consultation ---
Date of Consultation August 07, 2023 Assessment & Plan (1) Dyspnea and respiratory abnormalities: (2) Weakness generalized: (3) Advanced care planning/counseling discussion: Face to face x 45min with pt, , dtr Yumi and son Jacob at bedside Clinical events reviewed patient aware of prognosis and adv illness state; he tells he knows time is limited and has had detailed conversations about his prognosis with cardiology and primary team; he does not want to be in SNF, he wants home and would like hospice added. He feels he can be managed from a comfort perspective at home, plans to base himself out of their sunroom and away from the daycare space. 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 We discussed the goals of hospice as a patient service and the goals of care; we discussed EOL trajectories and transitions mariana the emotional impact of realizing mortality as a concrete reality from prior abstract considerations. Pt was reassured that no matter where they are along this trajectory, they are not alone - their medical team will remain by their side through their journey. Discussed the pros/cons of accepting help when especially weakened and distressed by pain-which would also help provide relief/decrease caregiver burden/strain. (4) Physician orders for life-sustaining treatment (POLST) form indicates patient wish for [id number] status: The POLST form was reviewed and discussed with patient/family today. We speci fically discussed that POLST is an approach to end-of-life planning that emphasizes patients wishes about the care they receive. The POLST Paradigm, which stands for Physician Orders for Life Sustaining Treatment, is an approach to end-of-life planning emphasizing: (i) advance care planning conversations between patients, health animal care provider and loved ones; (ii) shared decision-making between a patient and his/her health campground caretaker about the care the patient would like to receive at the end of his/her life and (iii) ensuring patient wishes are honored. We discussed that the POLST form is a medical order indicating a patients wishes regarding treatments that are commonly used in a medical crisis. It is a medical order, therefore emergency personnel such as paramedics, wet mixer, and emergency physicians must follow these orders. Without a POLST form, paramedics and wet mixer are required to provide every possible medical treatment to sustain life. Patient/family advised that the [place] POLST form is a very bright PINK colored form designed for immediate, easy location and which gives them a way to tell doctors, nurses, and other health animal care provider what types of treatment they do and do not want. A POLST form was completed today for Ford Lynn. Please note that today's completed POLST orders reflect patient's preferences, wishes and selections of what treatments [HE] want now, in [HIS] current state of health. He elects DNR/DNI, comfort care, no return to hospital, no Abtx and no IZABELLA/IV - focus on comfort and QOL/keep him at home. Ford Lynn verbalized understanding and all questions were answered to [HIS] apparent satisfaction. A copy of the POLST form has been sent to medical records to be uploaded into [employer]. The original was provided to the patient. (5) Palliative care by specialist: met with pt and family. Provided overview of Palliative Medicine, a subspecialty that provides specialized medical care for people living with a serious illness by offering a focus on quality of life through reduction of symptom burden/more control over their illness, for both the patient and family. We care for patients of any age/advancing stage of a serious illness and can be provided along with curative treatment. We are not hospice, which is a visiting nurse service that focuses on care delivered at the very end of life. Plan POLST completed Pt wants home with hospice; his caregivers would be his of 35+ years and occ his son who is local. Dtr from [place] is not able to assist. Daughter opposed to home with hospice, feels it is too much for to take o.n states she is willing to look into private home caregiver options to help supplement her care, she will get list from . Family would like PT martina to see where he is at functionally and in case rehab SNF is chosen. P states he is very firm on desiring home with hospice but is agreeable to PT evzofia and states he will humor daughter's desire to examine SNF rehab options. Family would like to speak with care mgt re hospice agencies - they want a per missive hospice. Pall med was consulted for GOC, which has been documented above. I will sign off, please call me if more assistance is needed. Thank you for allowing us to participate in the ongoing care of this patient. Liliana Katz [facility] Palliative Medicine History of Present Illness Reason for Consultation: goals Attending Physician: Maria T Cassidy MD History of Present Illness 83 y/o with extensive acute on chronic CHF, COPD exacerbation, pleural effusion, CKD IV. he is seen bedside with , dtr and son he states he does not want to stay in hospital, does not want rehab or SNF and wants to go home with hospice he recognizes he is nearing end stage of his heart and lung failure he says he realizes his strength and activity tolerance are declining. he does not want to spend his last days "lying around" a hospital or shelter bed when he can be home with family. Allergies Allergy/AdvReac Type Severity Reaction Status Date / Time No Known Allergies Allergy Verified 08/05/23 03:12 Home Medications Medication Instructions Recorded Confirmed Type aspirin 81 mg tablet,delayed 81 mg PO Q OTHER DAY 05/23/18 08/05/23 History release flash glucose sensor (FreeStyle #1 ea 06/18/20 07/30/23 Rx Maritza 14 Day Sensor kit) Portable Oxygen E0431 #1 ea 11/12/20 07/30/23 Rx apixaban 2.5 mg tablet (Eliquis) 2.5 mg PO BID 05/13/21 08/05/23 History fluticasone fur. 200 mcg-umeclid 1 inh inhalation DAILY #3 Inhalers 05/15/22 08/05/23 Rx 62.5 mcg-vilant 25 mcg inhalat.powder (Trelegy Ellipta) alprazolam 0.5 mg tablet 0.5 mg PO BID PRN anxiety #180 tabs 12/31/22 08/05/23 Rx flash glucose sensor (FreeStyle 01/05/23 07/30/23 History Maritza 14 Day Sensor kit) insulin regular human 100 unit/mL 12 unit subcut TIDM 01/05/23 08/05/23 History injection solution (Novolin R Regular U-100 Insulin) pen needle, diabetic 32 gauge x #100 ea 04/29/23 07/30/23 Rx 5/32" (BD Ultra-Fine [place] Pen Needle) levothyroxine 50 mcg tablet 50 mcg PO DAILY #90 tabs 04/30/23 08/05/23 Rx bumetanide 1 mg tablet 2 mg (2 x 1 mg) PO QAM #180 tabs 05/06/23 08/05/23 Rx albuterol sulfate 90 mcg/actuation 2 puff inhalation QID PRN 06/22/23 08/05/23 Rx aerosol inhaler (Ventolin HFA) shortness of breath or wheezing #54 grams mexiletine 150 mg capsule 150 mg PO Q12H antiarrhythmic 06/30/23 08/05/23 History insulin glargine 100 unit/mL (3 12 unit subcut QPM 07/24/23 08/05/23 History mL) subcutaneous pen (Lantus Solostar U-100 Insulin) nitroglycerin 0.4 mg sublingual 0.4 mg sublingual UD PRN chest 07/24/23 08/05/23 Rx tablet (Nitrostat) pain #30 Tabs rosuvastatin 5 mg tablet 5 mg PO DAILY #90 tabs 07/27/23 08/05/23 Rx carvedilol 12.5 mg tablet 12.5 mg PO BID #180 tabs 07/30/23 08/05/23 Rx blood-glucose meter,continuous #1 ea 08/03/23 Rx (FreeStyle Maritza 3 [place]) blood-glucose sensor (FreeStyle #2 ea 08/03/23 Rx Maritza 3 Sensor device) Patient History Medical History (Updated 08/07/23 @ 11:43 by Liliana Katz DNP) Palliative care by specialist Physician orders for life-sustaining treatment (POLST) form indicates patient wish for [id number] status Advanced care planning/counseling discussion Weakness generalized Dyspnea and respiratory abnormalities Chronic respiratory failure with hypoxia Paroxysmal atrial flutter Cardiomyopathy Acute HFrEF (heart failure with reduced ejection fraction) COPD with emphysema Hypothyroidism SOB (shortness of breath) Chronic kidney disease, stage 4 (severe) SOB (shortness of breath) CHF (congestive heart failure) Hypoxia Community acquired pneumonia Elevated troponin MARJORIE (acute kidney injury) Tobacco use disorder Uncontrolled type 2 diabetes mellitus Steroid-induced hyperglycemia Pulmonary nodule Proteinuria Pre-operative exam Panic disorder without agoraphobia Male erectile disorder of organic origin Hyperkalemia Hypercholesterolemia Herpes zoster Enteritis Elevated PSA Edema Diverticulitis of colon Diabetic nephropathy Chronic kidney disease, stage III (moderate) Carotid artery stenosis, asymptomatic CAD, multiple vessel Benign prostatic hyperplasia with elevated prostate specific antigen (PSA) Aneurysm of abdominal aorta Anemia Chronic kidney disease Diabetes mellitus, type 2 Chronic obstructive pulmonary disease Peripheral vascular disease Myocardial Infarction Hyperlipidemia Non-ST elevation TX (NSTEMI) Hypertension Surgical History (Updated 07/31/23 @ 00:09 by Tosha Domingo) History of partial colectomy H/O aortic aneurysm repair Stented coronary artery Family History Mother Coronary heart disease COPD (chronic obstructive pulmonary disease) Father Diabetes Brother Unknown family medical history Other Diabetes mellitus type 1 Heart disease Denies family history of Ovarian cancer Prostate cancer Myocardial infarction Breast cancer Colorectal cancer Cancer Social History Smoking Status: Former smoker Tobacco Type: Cigarettes Age Started Using Tobacco: 15; Age Quit Using Tobacco: 70; packs per day: 1; Second Hand Exposure: No; Do You Dip or Chew Tobacco: No; Hx Alcohol Use: No Hx Substance Use: No Preferred Language: Kazakh Communication Ability: Effective Visual Impairment: No Limitations Hearing Ability: Normal 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 Required: No Beliefs That Will Affect Care: None marital status: Current Living Situation: Spouse current occupational status: retired current occupation: Retired from career with [employer] Safe at Home: Yes Childhood Exposure to Second-Hand Smoke: Yes Diet: regular caffeine: Yes Dental Care, Regularly: No Physical Activity Frequency: Does not Exercise Seatbelt Use: always Sunscreen Use: No Assistive Devices: Oxygen - Continuous and Walker Review of Systems Review of Systems: All systems reviewed & are unremarkable except as noted in Subjective Physical Exam Physical Exam: AAOx3 bitemp wasting mild circumoral cyanosis lips Neck supple Inc resp effort, use of accessory muscles, +conversational dyspnea no JVD Abd soft, BS+, protuberant belly Gen weakness Results & Data Vital Signs (Past 12 Hours) Vital Signs Temp Pulse Pulse Resp BP Pulse Ox Pulse Ox 08/07/23 09:54 36.6 C 78 18 106/61 91 08/07/23 08:00 87 08/07/23 07:11 36.7 C 85 20 162/98 H 94 08/07/23 06:00 89 L 08/07/23 02:30 36.5 C 76 20 103/71 90 08/06/23 22:39 36.7 C 72 18 122/79 94 O2 Del Method O2 Del Method O2 Flow Rate O2 Flow Rate 08/07/23 09:54 Nasal Cannula 5 08/07/23 08:00 08/07/23 07:11 Nasal Cannula 5 08/07/23 06:00 Nasal Cannula 6 08/07/23 02:30 Nasal Cannula 4.0 08/06/23 22:39 Nasal Cannula 4.0 Laboratory Results 08/07/23 08/07/23 08/07/23 Range/Units 11:31 07:09 05:56 WBC 9.79 (4.8-10.8) K/ul RBC 4.36 L (4.70-6.10) M/uL Hgb 14.4 (14.0-18.0) g/dl Hct 42.8 (42.0-52.0) % MCV 98.2 (80.0-100.0) fL MCH 33.0 (25.0-34.0) pg MCHC 33.6 (32.0-36.0) g/dL RDW Std Deviation 57.7 H (36.4-46.3) fL RDW Coeff of Pj 15.9 H (11.5-14.5) % Plt Count 218 (130-400) K/uL MPV 10.7 (9.4-12.4) fL Immature Gran % (Auto) 0.5 % Neut % (Auto) 68.8 % Lymph % (Auto) 18.0 % Ritchie % (Auto) 9.0 % Eos % (Auto) 2.6 % Baso % (Auto) 1.1 % Neut # (Auto) 6.74 H (1.40-6.50) K/uL Lymph # (Auto) 1.76 (1.20-3.40) K/uL Ritchie # (Auto) 0.88 H (0.11-0.59) K/uL Eos # (Auto) 0.25 (0.00-0.50) K/uL Baso # (Auto) 0.11 (0.00-0.20) K/uL Immature Gran # (Auto) 0.05 (0.01-0.20) K/uL Absolute Nucleated RBC (0.00-0.12) K/uL Nucleated RBC % (auto) % Sodium 138 (136-145) mmol/L Potassium 4.5 (3.5-5.1) mmol/L Chloride 98 (98-107) mmol/L Carbon Dioxide 34 H (21-32) mmol/L Anion Gap 6 (3-11) BUN 51 H (6-23) mg/dl Creatinine 2.07 H (0.6-1.4) mg/dl Est Cr Clr Drug Dosing 27.4 ml/min Est GFR ( Amer) 33.1 ml/min Est GFR (Non-Af Amer) 28.6 ml/min BUN/Creatinine Ratio 24.6 H (10-20) Glucose 184 H (70-99(Fasting)) mg/dl POC Glucose 161 H 211 H (70-99) mg/dl Calcium 8.5 L (8.6-10.3) mg/dl Phosphorus 4.0 (2.5-4.9) mg/dl Magnesium 1.7 (1.7-2.4) mg/dl Total Bilirubin (0.2-1.0) mg/dl AST (13-39) U/L ALT (7-52) U/L Alkaline Phosphatase (34-104) U/L Troponin I High Sens (0-20) pg/ml B-Natriuretic Peptide (0-100) pg/ml Total Protein (6.0-8.3) gm/dl Albumin 3.2 L (3.4-5.0) gm/dl Globulin (2.5-4.0) gm/dl Albumin/Globulin Ratio (0.9-2) Lipase (11-82) U/L Adenovirus (PCR) (NotDetected) B. pertussis DNA (PCR) (NotDetected) B.parapertussis DNA PCR (NotDetected) C. pneumoniae DNA (PCR) (NotDetected) Coronavirus OC43 (PCR) (NotDetected) Coronavirus HKU1 (PCR) (NotDetected) Coronavirus 229E (PCR) (NotDetected) SARS-CoV-2 (PCR) (NotDetected) Coronavirus NL63 (PCR) (NotDetected) Human Metapneumovir PCR (NotDetected) Influenza Type A (PCR) (NotDetected) Influenza Type B (PCR) (NotDetected) M. pneumoniae (PCR) (NotDetected) Parainfluenza 1 (PCR) (NotDetected) Parainfluenza 2 (PCR) (NotDetected) Parainfluenza 3 (PCR) (NotDetected) Parainfluenza 4 (PCR) (NotDetected) RSV (PCR) (NotDetected) Entero/Rhino (PCR) (NotDetected) 08/06/23 08/06/23 08/06/23 Range/Units 20:16 15:59 11:44 WBC (4.8-10.8) K/ul RBC (4.70-6.10) M/uL Hgb (14.0-18.0) g/dl Hct (42.0-52.0) % MCV (80.0-100.0) fL MCH (25.0-34.0) pg MCHC (32.0-36.0) g/dL RDW Std Deviation (36.4-46.3) fL RDW Coeff of Pj (11.5-14.5) % Plt Count (130-400) K/uL MPV (9.4-12.4) fL Immature Gran % (Auto) % Neut % (Auto) % Lymph % (Auto) % Ritchie % (Auto) % Eos % (Auto) % Baso % (Auto) % Neut # (Auto) (1.40-6.50) K/uL Lymph # (Auto) (1.20-3.40) K/uL Ritchie # (Auto) (0.11-0.59) K/uL Eos # (Auto) (0.00-0.50) K/uL Baso # (Auto) (0.00-0.20) K/uL Immature Gran # (Auto) (0.01-0.20) K/uL Absolute Nucleated RBC (0.00-0.12) K/uL Nucleated RBC % (auto) % Sodium (136-145) mmol/L Potassium (3.5-5.1) mmol/L Chloride (98-107) mmol/L Carbon Dioxide (21-32) mmol/L Anion Gap (3-11) BUN (6-23) mg/dl Creatinine (0.6-1.4) mg/dl Est Cr Clr Drug Dosing ml/min Est GFR ( Amer) ml/min Est GFR (Non-Af Amer) ml/min BUN/Creatinine Ratio (10-20) Glucose (70-99(Fasting)) mg/dl POC Glucose 164 H 161 H 172 H (70-99) mg/dl Calcium (8.6-10.3) mg/dl Phosphorus (2.5-4.9) mg/dl Magnesium (1.7-2.4) mg/dl Total Bilirubin (0.2-1.0) mg/dl AST (13-39) U/L ALT (7-52) U/L Alkaline Phosphatase (34-104) U/L Troponin I High Sens (0-20) pg/ml B-Natriuretic Peptide (0-100) pg/ml Total Protein (6.0-8.3) gm/dl Albumin (3.4-5.0) gm/dl Globulin (2.5-4.0) gm/dl Albumin/Globulin Ratio (0.9-2) Lipase (11-82) U/L Adenovirus (PCR) (NotDetected) B. pertussis DNA (PCR) (NotDetected) B.parapertussis DNA PCR (NotDetected) C. pneumoniae DNA (PCR) (NotDetected) Coronavirus OC43 (PCR) (NotDetected) Coronavirus HKU1 (PCR) (NotDetected) Coronavirus 229E (PCR) (NotDetected) SARS-CoV-2 (PCR) (NotDetected) Coronavirus NL63 (PCR) (NotDetected) Human Metapneumovir PCR (NotDetected) Influenza Type A (PCR) (NotDetected) Influenza Type B (PCR) (NotDetected) M. pneumoniae (PCR) (NotDetected) Parainfluenza 1 (PCR) (NotDetected) Parainfluenza 2 (PCR) (NotDetected) Parainfluenza 3 (PCR) (NotDetected) Parainfluenza 4 (PCR) (NotDetected) RSV (PCR) (NotDetected) Entero/Rhino (PCR) (NotDetected) 08/06/23 08/06/23 08/05/23 Range/Units 07:23 05:51 21:19 WBC 9.30 (4.8-10.8) K/ul RBC 4.15 L (4.70-6.10) M/uL Hgb 13.8 L (14.0-18.0) g/dl Hct 40.8 L (42.0-52.0) % MCV 98.3 (80.0-100.0) fL MCH 33.3 (25.0-34.0) pg MCHC 33.8 (32.0-36.0) g/dL RDW Std Deviation 58.0 H (36.4-46.3) fL RDW Coeff of Pj 16.0 H (11.5-14.5) % Plt Count 231 (130-400) K/uL MPV 11.3 (9.4-12.4) fL Immature Gran % (Auto) 0.4 % Neut % (Auto) 64.7 % Lymph % (Auto) 21.1 % Ritchie % (Auto) 9.5 % Eos % (Auto) 3.0 % Baso % (Auto) 1.3 % Neut # (Auto) 6.02 (1.40-6.50) K/uL Lymph # (Auto) 1.96 (1.20-3.40) K/uL Ritchie # (Auto) 0.88 H (0.11-0.59) K/uL Eos # (Auto) 0.28 (0.00-0.50) K/uL Baso # (Auto) 0.12 (0.00-0.20) K/uL Immature Gran # (Auto) 0.04 (0.01-0.20) K/uL Absolute Nucleated RBC 0.02 (0.00-0.12) K/uL Nucleated RBC % (auto) 0.2 % Sodium 137 (136-145) mmol/L Potassium 4.9 (3.5-5.1) mmol/L Chloride 98 (98-107) mmol/L Carbon Dioxide 33 H (21-32) mmol/L Anion Gap 6 (3-11) BUN 50 H (6-23) mg/dl Creatinine 2.04 H (0.6-1.4) mg/dl Est Cr Clr Drug Dosing 30.4 ml/min Est GFR ( Amer) 33.7 ml/min Est GFR (Non-Af Amer) 29.1 ml/min BUN/Creatinine Ratio 24.5 H (10-20) Glucose 138 H (70-99(Fasting)) mg/dl POC Glucose 200 H (70-99) mg/dl Calcium 8.5 L (8.6-10.3) mg/dl Phosphorus 4.2 (2.5-4.9) mg/dl Magnesium 1.8 (1.7-2.4) mg/dl Total Bilirubin (0.2-1.0) mg/dl AST (13-39) U/L ALT (7-52) U/L Alkaline Phosphatase (34-104) U/L Troponin I High Sens 84.1 H* (0-20) pg/ml B-Natriuretic Peptide (0-100) pg/ml Total Protein (6.0-8.3) gm/dl Albumin 3.1 L (3.4-5.0) gm/dl Globulin (2.5-4.0) gm/dl Albumin/Globulin Ratio (0.9-2) Lipase (11-82) U/L Adenovirus (PCR) (NotDetected) B. pertussis DNA (PCR) (NotDetected) B.parapertussis DNA PCR (NotDetected) C. pneumoniae DNA (PCR) (NotDetected) Coronavirus OC43 (PCR) (NotDetected) Coronavirus HKU1 (PCR) (NotDetected) Coronavirus 229E (PCR) (NotDetected) SARS-CoV-2 (PCR) (NotDetected) Coronavirus NL63 (PCR) (NotDetected) Human Metapneumovir PCR (NotDetected) Influenza Type A (PCR) (NotDetected) Influenza Type B (PCR) (NotDetected) M. pneumoniae (PCR) (NotDetected) Parainfluenza 1 (PCR) (NotDetected) Parainfluenza 2 (PCR) (NotDetected) Parainfluenza 3 (PCR) (NotDetected) Parainfluenza 4 (PCR) (NotDetected) RSV (PCR) (NotDetected) Entero/Rhino (PCR) (NotDetected) 08/05/23 08/05/23 08/05/23 Range/Units 20:13 16:14 14:54 WBC (4.8-10.8) K/ul RBC (4.70-6.10) M/uL Hgb (14.0-18.0) g/dl Hct (42.0-52.0) % MCV (80.0-100.0) fL MCH (25.0-34.0) pg MCHC (32.0-36.0) g/dL RDW Std Deviation (36.4-46.3) fL RDW Coeff of Pj (11.5-14.5) % Plt Count (130-400) K/uL MPV (9.4-12.4) fL Immature Gran % (Auto) % Neut % (Auto) % Lymph % (Auto) % Ritchie % (Auto) % Eos % (Auto) % Baso % (Auto) % Neut # (Auto) (1.40-6.50) K/uL Lymph # (Auto) (1.20-3.40) K/uL Ritchie # (Auto) (0.11-0.59) K/uL Eos # (Auto) (0.00-0.50) K/uL Baso # (Auto) (0.00-0.20) K/uL Immature Gran # (Auto) (0.01-0.20) K/uL Absolute Nucleated RBC (0.00-0.12) K/uL Nucleated RBC % (auto) % Sodium (136-145) mmol/L Potassium (3.5-5.1) mmol/L Chloride (98-107) mmol/L Carbon Dioxide (21-32) mmol/L Anion Gap (3-11) BUN (6-23) mg/dl Creatinine (0.6-1.4) mg/dl Est Cr Clr Drug Dosing ml/min Est GFR ( Amer) ml/min Est GFR (Non-Af Amer) ml/min BUN/Creatinine Ratio (10-20) Glucose (70-99(Fasting)) mg/dl POC Glucose 157 H 170 H (70-99) mg/dl Calcium (8.6-10.3) mg/dl Phosphorus (2.5-4.9) mg/dl Magnesium (1.7-2.4) mg/dl Total Bilirubin (0.2-1.0) mg/dl AST (13-39) U/L ALT (7-52) U/L Alkaline Phosphatase (34-104) U/L Troponin I High Sens 86.4 H* (0-20) pg/ml B-Natriuretic Peptide (0-100) pg/ml Total Protein (6.0-8.3) gm/dl Albumin (3.4-5.0) gm/dl Globulin (2.5-4.0) gm/dl Albumin/Globulin Ratio (0.9-2) Lipase (11-82) U/L Adenovirus (PCR) (NotDetected) B. pertussis DNA (PCR) (NotDetected) B.parapertussis DNA PCR (NotDetected) C. pneumoniae DNA (PCR) (NotDetected) Coronavirus OC43 (PCR) (NotDetected) Coronavirus HKU1 (PCR) (NotDetected) Coronavirus 229E (PCR) (NotDetected) SARS-CoV-2 (PCR) (NotDetected) Coronavirus NL63 (PCR) (NotDetected) Human Metapneumovir PCR (NotDetected) Influenza Type A (PCR) (NotDetected) Influenza Type B (PCR) (NotDetected) M. pneumoniae (PCR) (NotDetected) Parainfluenza 1 (PCR) (NotDetected) Parainfluenza 2 (PCR) (NotDetected) Parainfluenza 3 (PCR) (NotDetected) Parainfluenza 4 (PCR) (NotDetected) RSV (PCR) (NotDetected) Entero/Rhino (PCR) (NotDetected) 08/05/23 08/05/23 08/05/23 Range/Units 13:15 09:35 07:39 WBC (4.8-10.8) K/ul RBC (4.70-6.10) M/uL Hgb (14.0-18.0) g/dl Hct (42.0-52.0) % MCV (80.0-100.0) fL MCH (25.0-34.0) pg MCHC (32.0-36.0) g/dL RDW Std Deviation (36.4-46.3) fL RDW Coeff of Pj (11.5-14.5) % Plt Count (130-400) K/uL MPV (9.4-12.4) fL Immature Gran % (Auto) % Neut % (Auto) % Lymph % (Auto) % Ritchie % (Auto) % Eos % (Auto) % Baso % (Auto) % Neut # (Auto) (1.40-6.50) K/uL Lymph # (Auto) (1.20-3.40) K/uL Ritchie # (Auto) (0.11-0.59) K/uL Eos # (Auto) (0.00-0.50) K/uL Baso # (Auto) (0.00-0.20) K/uL Immature Gran # (Auto) (0.01-0.20) K/uL Absolute Nucleated RBC (0.00-0.12) K/uL Nucleated RBC % (auto) % Sodium (136-145) mmol/L Potassium (3.5-5.1) mmol/L Chloride (98-107) mmol/L Carbon Dioxide (21-32) mmol/L Anion Gap (3-11) BUN (6-23) mg/dl Creatinine (0.6-1.4) mg/dl Est Cr Clr Drug Dosing ml/min Est GFR ( Amer) ml/min Est GFR (Non-Af Amer) ml/min BUN/Creatinine Ratio (10-20) Glucose (70-99(Fasting)) mg/dl POC Glucose 181 H 170 H (70-99) mg/dl Calcium (8.6-10.3) mg/dl Phosphorus (2.5-4.9) mg/dl Magnesium (1.7-2.4) mg/dl Total Bilirubin (0.2-1.0) mg/dl AST (13-39) U/L ALT (7-52) U/L Alkaline Phosphatase (34-104) U/L Troponin I High Sens 88.5 H* (0-20) pg/ml B-Natriuretic Peptide (0-100) pg/ml Total Protein (6.0-8.3) gm/dl Albumin (3.4-5.0) gm/dl Globulin (2.5-4.0) gm/dl Albumin/Globulin Ratio (0.9-2) Lipase (11-82) U/L Adenovirus (PCR) (NotDetected) B. pertussis DNA (PCR) (NotDetected) B.parapertussis DNA PCR (NotDetected) C. pneumoniae DNA (PCR) (NotDetected) Coronavirus OC43 (PCR) (NotDetected) Coronavirus HKU1 (PCR) (NotDetected) Coronavirus 229E (PCR) (NotDetected) SARS-CoV-2 (PCR) (NotDetected) Coronavirus NL63 (PCR) (NotDetected) Human Metapneumovir PCR (NotDetected) Influenza Type A (PCR) (NotDetected) Influenza Type B (PCR) (NotDetected) M. pneumoniae (PCR) (NotDetected) Parainfluenza 1 (PCR) (NotDetected) Parainfluenza 2 (PCR) (NotDetected) Parainfluenza 3 (PCR) (NotDetected) Parainfluenza 4 (PCR) (NotDetected) RSV (PCR) (NotDetected) Entero/Rhino (PCR) (NotDetected) 08/05/23 08/05/23 08/05/23 Range/Units 06:34 04:50 03:00 WBC 13.16 H (4.8-10.8) K/ul RBC 4.87 (4.70-6.10) M/uL Hgb 15.8 (14.0-18.0) g/dl Hct 48.7 (42.0-52.0) % MCV 100.0 (80.0-100.0) fL MCH 32.4 (25.0-34.0) pg MCHC 32.4 (32.0-36.0) g/dL RDW Std Deviation 58.7 H (36.4-46.3) fL RDW Coeff of Pj 16.0 H (11.5-14.5) % Plt Count 242 (130-400) K/uL MPV 11.0 (9.4-12.4) fL Immature Gran % (Auto) 0.6 % Neut % (Auto) 74.9 % Lymph % (Auto) 11.6 % Ritchie % (Auto) 10.1 % Eos % (Auto) 1.7 % Baso % (Auto) 1.1 % Neut # (Auto) 9.85 H (1.40-6.50) K/uL Lymph # (Auto) 1.53 (1.20-3.40) K/uL Ritchie # (Auto) 1.33 H (0.11-0.59) K/uL Eos # (Auto) 0.22 (0.00-0.50) K/uL Baso # (Auto) 0.15 (0.00-0.20) K/uL Immature Gran # (Auto) 0.08 (0.01-0.20) K/uL Absolute Nucleated RBC (0.00-0.12) K/uL Nucleated RBC % (auto) % Sodium 134 L (136-145) mmol/L Potassium 4.7 (3.5-5.1) mmol/L Chloride 94 L (98-107) mmol/L Carbon Dioxide 33 H (21-32) mmol/L Anion Gap 7 (3-11) BUN 46 H (6-23) mg/dl Creatinine 1.90 H (0.6-1.4) mg/dl Est Cr Clr Drug Dosing 32.7 ml/min Est GFR ( Amer) 36.7 ml/min Est GFR (Non-Af Amer) 31.7 ml/min BUN/Creatinine Ratio 24.2 H (10-20) Glucose 237 H (70-99(Fasting)) mg/dl POC Glucose (70-99) mg/dl Calcium 9.4 (8.6-10.3) mg/dl Phosphorus (2.5-4.9) mg/dl Magnesium (1.7-2.4) mg/dl Total Bilirubin 1.0 (0.2-1.0) mg/dl AST 33 (13-39) U/L ALT 23 (7-52) U/L Alkaline Phosphatase 159 H (34-104) U/L Troponin I High Sens 97.0 H* D 111.4 H* (0-20) pg/ml B-Natriuretic Peptide 4663 H (0-100) pg/ml Total Protein 7.3 (6.0-8.3) gm/dl Albumin 3.8 (3.4-5.0) gm/dl Globulin 3.5 (2.5-4.0) gm/dl Albumin/Globulin Ratio 1.1 (0.9-2) Lipase 20 (11-82) U/L Adenovirus (PCR) Not Detected (NotDetected) B. pertussis DNA (PCR) Not Detected (NotDetected) B.parapertussis DNA PCR Not Detected (NotDetected) C. pneumoniae DNA (PCR) Not Detected (NotDetected) Coronavirus OC43 (PCR) Not Detected (NotDetected) Coronavirus HKU1 (PCR) Not Detected (NotDetected) Coronavirus 229E (PCR) Not Detected (NotDetected) SARS-CoV-2 (PCR) Not Detected (NotDetected) Coronavirus NL63 (PCR) Not Detected (NotDetected) Human Metapneumovir PCR Not Detected (NotDetected) Influenza Type A (PCR) Not Detected (NotDetected) Influenza Type B (PCR) Not Detected (NotDetected) M. pneumoniae (PCR) Not Detected (NotDetected) Parainfluenza 1 (PCR) Not Detected (NotDetected) Parainfluenza 2 (PCR) Not Detected (NotDetected) Parainfluenza 3 (PCR) Not Detected (NotDetected) Parainfluenza 4 (PCR) Not Detected (NotDetected) RSV (PCR) Not Detected (NotDetected) Entero/Rhino (PCR) Not Detected (NotDetected) Diagnostic Findings Chest X-Ray 08/05/23 03:07 SINGLE VIEW CHEST CLINICAL HISTORY: Atypical chest pain. FINDINGS: An AP, portable, upright chest radiograph is compared to study dated 07/21/2023. A 3-lead cardiac pacemaker is unchanged in position. The heart is enlarged noting atherosclerotic calcification of the thoracic aorta. There is pulmonary vascular congestion. Emphysema and chronic interstitial thickening is similar to previous. There are left large right pleural effusions with dependent consolidation. No pneumothorax is seen. The skeletal structures are osteopenic. The bony thorax is grossly intact. Arthritic change is seen in the shoulders. IMPRESSION: 1. Cardiomegaly and cardiac pacemaker with evidence of congestive failure. 2. Left larger than right pleural effusions with dependent consolidation. 3. Emphysema. ACT 112: Negative or not required by law. Electronically signed by: Vince Vázquez M.D. 08/05/2023 7:24 AM Chest X-Ray 08/06/23 08:08 SINGLE VIEW CHEST CLINICAL HISTORY: Pleural effusions FINDINGS: An AP, portable, upright chest radiograph is compared to study dated 08/05/2023. A 3-lead cardiac pacemaker is unchanged in position. The heart is enlarged noting atherosclerotic calcification of the thoracic aorta. Pulmonary vascular congestion persists. Emphysema and chronic interstitial thickening is similar to previous. There are left large amount right pleural effusions with dependent consolidation. No pneumothorax is seen. The skeletal structures are osteopenic. The bony thorax is grossly intact. Arthritic change is seen in the shoulders. IMPRESSION: 1. Cardiomegaly and cardiac pacemaker with persistent pulmonary vascular congestion. 2. Left larger than right pleural effusions with dependent consolidation. This is similar to previous. 3. Emphysema. ACT 112: Negative or not required by law. Electronically signed by: Vince Vázquez M.D. 08/06/2023 8:45 AM PG Care Time/CCT Total # of Minutes Spent Total Time Spent with Patient: Total time spent is greater than 50% in coordination of care (as documented) at patient's floor/unit and/or counseling patient: I spent 105 minutes overall addressing this case: 15 min in medical data review/discussion with referring provider(s) and/or preparation for the visit 15 min in direct interaction with the patient/exam 45 min in Advance Care Planning/Goals of Care discussions as detailed above in note (must be >16min) 15 min in subsequent review and synthesis of assessment and plan 15 min communicating with other providers regarding the patient's case: primary , care mgt, nursing Advanced Care Planning 26907 Advanced Care Planning 30 Min 29089 Advanced Care Planning Additional 30 [place] [address] IN/OBS CONSULT LVL 5,80M (25 - SIGNIFICANT, SEPARATELY IDENTIFIABLE ) Patient Type New History Comprehensive Exam Comprehensive Medical Decision Making High Complexity Diagnoses Dyspnea and respiratory abnormalities R06.00; R06.89 Weakness generalized R53.1 Advanced care planning/counseling discussion Z71.89 Physician orders for life-sustaining treatment (POLST) form indicates patient wish for [id number] status Z66 Palliative care by specialist Z51.5 Additional Codes Advanced Care Planning - 10720 Advanced Care Planning 30 Min: 00196 Advanced Care Planning 30 Min ([id number]) Advanced Care Planning - 55774 Advanced Care Planning Additional 30 Min: 54523 Advanced Care Planning Additional 30 Min ([id number])
--- NOTE | 2023-08-07 12:38 | Electrocardiogram Report ---
Test Reason : Blood Pressure : / mmHG Vent. Rate : 071 BPM Atrial Rate : 071 BPM P-R Int : 154 ms QRS Dur : 150 ms QT Int : 492 ms P-R-T Axes : 075 -85 096 degrees QTc Int : 534 ms Atrial-sensed ventricular-paced rhythm Abnormal ECG When compared with ECG of 05-AUG-2023 02:56, (unconfirmed) No significant change Confirmed by Ford Lopez ([id number]) on 08/07/2023 12:38:27 PM Referred By: REFERRED SELF Confirmed By:Ford Lopez
--- NOTE | 2023-08-07 12:42 | Electrocardiogram Report ---
Test Reason : Blood Pressure : / mmHG Vent. Rate : 087 BPM Atrial Rate : 087 BPM P-R Int : 148 ms QRS Dur : 158 ms QT Int : 456 ms P-R-T Axes : 077 -71 102 degrees QTc Int : 548 ms Atrial-sensed ventricular-paced rhythm Abnormal ECG When compared with ECG of 06-AUG-2023 05:20, (unconfirmed) Vent. rate has increased BY 16 BPM Confirmed by Ford Lopez ([id number]) on 08/07/2023 12:42:11 PM Referred By: REFERRED SELF Confirmed By:Ford Lopez
--- NOTE | 2023-08-07 15:14 | Hospitalist Progress Note ---
Date of Service August 07, 2023 Assessment & Plan (1) Systolic heart failure: (2) CAD (coronary artery disease): (3) Afib: (4) Chronic respiratory failure with hypoxia: Plan The patient is an 83-year-old male with a past medical history including AAA, asymptomatic carotid artery stenosis, diabetic nephropathy, panic disorder without agoraphobia, pulmonary nodules, diabetes mellitus type 2 with hypoglycemia, complete heart block status post pacemaker, mixed restrictive and obstructive lung disease, vitamin D deficiency and CKD stage IV admitted due to acute CHF exacerbation Family and palliative discussion done today. POLTS form filled today. ( He elects DNR/DNI, comfort care, no return to hospital, no Abtx and no IZABELLA/IV - focus on comfort and QOL/keep him at home.)Patient would want hospice but considering SNF rehab. CM following Acute HFrEF exacerbation chronically elevated troponin cardiomyopathy Acute on chronic respiratory failure with hypoxia Chest pain Baseline 3 L nasal cannula oxygen at rest, and increases up to 6 L oxygen as ne eded for activity BMP 4663 Troponin elevation and chest pain secondary to demand ischemia in heart failure Most recent echo on 07/21/2023: Ejection fraction 25-30%, severe global hypokinesis on the left ventricle. The right ventricle systolic function is severely reduced. Weight: no weight gained U/O: 0.70 Weight: 84.6 kg today Continue apixaban 2.5 mg p.o, aspirin 81 mg every other day, carvedilol 12.5 mg p.o. twice daily Nitropaste 1 inch to anterior chest wall every 6 hours Consult cardiology, appreciate recommendations : Imdur increase to BID today Consult Palliative Care, appreciate recommendations Continue Bumex 1 mg IV twice daily PT/ OT consulted Left pleural effusion - CXR 08/04-Left larger than right pleural effusions with dependent consolidation. - seem to had been increased compared from the prev on 07/20 - CXR repeat today: no change from yesterday - IV Bumex mg BID CAD/hypertension - Continue aspirin, Carvedilol COPD exacerbation/mixed restrictive and obstructive lung disease/question of pulmonary hypertension- Continue Trelegy Ellipta 1 elation daily, and albuterol HFA 2 puffs 4 times tj y as needed Paroxysmal atrial flutter-fibrillation - Currently rate controlled - Continue home Mexiletine and Carvedilol - Continue home eliquis Diabetes mellitus- Continue glargine 12 units subcu in the evening Hold regular insulin 12 units subcu 3 times daily with meals Placed on Accu-Cheks with NovoLog SSI CKD stage IV- Creatinine 2.07 today - Follows Nephrology - Dr. Westbrook - Baseline Creatinine ~2.2 - CMP am DVT prophylaxis: Auryquela Diet: Heart Healthy, Carb consistent Code: Full code Admission and Anticipated Discharge Date Admission Date: August 05, 2023 Supervising Physician Co-Signing Physician Notes Attending Physician Supervision Note: I independently interviewed and examined the patient and verified the lamar history and physical, reviewed labs and image studies and agree with findings and care plan noted above. When getting of bed this am to use bedside commode got very short of breath. Acute on chronic HFrEF/Bilateral pleural effusion - neg 1400ml. O2 need improving. -continue diuresis. creatinine stable -continue coreg, bumex, PAF -coreg, mexiletine, apixaban Trop elevation from demand ischemia -evaluated by cardio - not a candidate for C. -nitro, aspirin, statin, coreg COPD -Home meds. Chronic respiratory failure - continue supplemental O2. CKD4 - monitor renal function. Goals of care - -palliative care consult placed per cardio recommendation. Patient wishes home with hospice but would entertain family wishes to get PT eval and possible rehab placement. POLTS form filled today. ( He elects DNR/DNI, comfort care, no return to hospital, no Abtx and no IZABELLA/IV - focus on comfort and QOL/keep him at home.) Physical Exam Constitutional: WD/WN, vitals as above Respiratory: no respiratory distress Auscultation: + crackles (Right lower lobe) Cardiovascular: Heart Sounds: normal S1 and normal S2; no murmur Extremities: + edema Gastrointestinal (Abdomen): normal bowel sounds, soft, nontender, no hepatosplenomegaly Skin: no rashes, warm and dry Results & Data Results & Data Vital Signs (Past 12 Hours) Vital Signs Temp Pulse Pulse Resp BP Pulse Ox Pulse Ox 08/07/23 14:54 36.3 C L 82 18 118/86 92 08/07/23 09:54 36.6 C 78 18 106/61 91 08/07/23 08:00 08/07/23 08:00 87 08/07/23 07:11 36.7 C 85 20 162/98 H 94 05/03/24 06:00 89 L O2 Del Method O2 Del Method O2 Flow Rate O2 Flow Rate 08/07/23 14:54 Nasal Cannula 5 08/07/23 09:54 Nasal Cannula 5 08/07/23 08:00 Nasal Cannula 6 08/07/23 08:00 08/07/23 07:11 Nasal Cannula 5 08/07/23 06:00 Nasal Cannula 6 Resident Activity Tracking Resident Involvement: Resident Care Provided Care Provided: Adult Hospital Medicine
[2023-08-07] MEDS: ISOSORBIDE MONO EXTENDED REL 30 MG TABCR PO SCH (21:00)
[2023-08-08 07:33] LABS: Basophils # (auto) 0.11 K/uL (0.00-0.20); Basophils % (auto) 1.3 %; Eosinophils # (auto) 0.17 K/uL (0.00-0.50); Eosinophils % (auto) 1.9 %; Hematocrit (blood only) 40.5 % (42.0-52.0); Hemoglobin 13.5 g/dl (14.0-18.0); Immature Granulocytes # (auto) 0.04 K/uL (0.01-0.20); Immature Granulocytes % (auto) 0.5 %; Lymphocytes # (auto) 1.65 K/uL (1.20-3.40); Lymphocytes % (auto) 18.8 %; Mean Corpuscular Hemoglobin 32.7 pg (25.0-34.0); Mean Corpuscular Hgb Conc 33.3 g/dL (32.0-36.0); Mean Corpuscular Volume 98.1 fL (80.0-100.0); Mean Platelet Volume 10.6 fL (9.4-12.4); Monocytes # (auto) 0.83 K/uL (0.11-0.59); Monocytes % (auto) 9.5 %; Neutrophils # (auto) 5.97 K/uL (1.40-6.50); Platelet Count 191 K/uL (130-400); RDW Coefficient of Variation 15.8 % (11.5-14.5); RDW Standard Deviation 56.5 fL (36.4-46.3); Red Blood Count 4.13 M/uL (4.70-6.10); White Blood Count 8.77 K/ul (4.8-10.8)
[2023-08-08 07:46] LABS: Albumin Level 2.9 gm/dl (3.4-5.0); BUN Creatinine Ratio 24.8 (10-20); Calcium 8.2 mg/dl (8.6-10.3); Creatinine Clr Calc Pharmacy 28.1 ml/min; Est GFR (African American) 34.1 ml/min; Est GFR (Non-African American) 29.4 ml/min; Magnesium 1.7 mg/dl (1.7-2.4); Phosphorus 4.5 mg/dl (2.5-4.9); Potassium 4.2 mmol/L (3.5-5.1)
--- NOTE | 2023-08-08 13:28 | Hospitalist Progress Note ---
Date of Service August 08, 2023 Assessment & Plan (1) Systolic heart failure: (2) CAD (coronary artery disease): (3) Afib: (4) Chronic respiratory failure with hypoxia: Plan The patient is an 83-year-old male with a past medical history including AAA, asymptomatic carotid artery stenosis, diabetic nephropathy, panic disorder without agoraphobia, pulmonary nodules, diabetes mellitus type 2 with hypoglycemia, complete heart block status post pacemaker, mixed restrictive and obstructive lung disease, vitamin D deficiency and CKD stage IV admitted due to acute CHF exacerbation Family and palliative discussion done today. POLST form completed. ( He elects DNR/DNI, comfort care, no return to hospital, no Abtx and no IZABELLA/IV - focus on comfort and QOL/keep him at home.) Hospice setting up house today. Anticipate dc to home with hospice tomorrow. Acute HFrEF exacerbation chronically elevated troponin cardiomyopathy Acute on chronic respiratory failure with hypoxia Chest pain Baseline 3 L nasal cannula oxygen at rest, and increases up to 6 L oxygen as needed for activity BMP 4663 Troponin elevation and chest pain secondary to demand ischemia in heart failure Most recent echo on 07/21/2023: Ejection fraction 25-30%, severe global hypokinesis on the left ventricle. The right ventricle systolic function is severely reduced. Weight: no weight gained U/O: 0.70 Weight: 84.6 kg today Continue apixaban 2.5 mg p.o, aspirin 81 mg every other day, carvedilol 12.5 mg p.o. twice daily Nitropaste 1 inch to anterior chest wall every 6 hours Consult cardiology, appreciate recommendations : Imdur increase to BID today Consult Palliative Care, appreciate recommendations Continue Bumex 1 mg IV twice daily PT/ OT consulted Left pleural effusion - CXR 08/04-Left larger than right pleural effusions with dependent consolidati on. - seem to had been increased compared from the prev on 07/20 - CXR repeat today: no change from yesterday - IV Bumex mg BID CAD/hypertension - Continue aspirin, Carvedilol COPD exacerbation/mixed restrictive and obstructive lung disease/question of pulmonary hypertension- Continue Trelegy Ellipta 1 elation daily, and albuterol HFA 2 puffs 4 times daily as needed Paroxysmal atrial flutter-fibrillation - Currently rate controlled - Continue home Mexiletine and Carvedilol - Continue home eliquis Diabetes mellitus- Continue glargine 12 units subcu in the evening Hold regular insulin 12 units subcu 3 times daily with meals Placed on Accu-Cheks with NovoLog SSI CKD stage IV- Creatinine 2.07 today - Follows Nephrology - Dr. Westbrook - Baseline Creatinine ~2.2 - CMP am DVT prophylaxis: Eliquis Diet: Heart Healthy, Carb consistent Code: Full code Admission and Anticipated Discharge Date Admission Date: August 05, 2023 Supervising Physician Co-Signing Physician Notes Attending Physician Supervision Note: I independently interviewed and examined the patient and verified the lamar history and physical, reviewed labs and image studies and agree with findings and care plan noted above. Very anxious this morning. No worsening of shortness of breath Acute on chronic HFrEF/Bilateral pleural effusion - neg 2L. O2 need stable. -continue diuresis. creatinine stable -continue coreg, bumex, PAF -coreg, mexiletine, apixaban Trop elevation from demand ischemia -evaluated by cardio - not a candidate for [facility]. -nitro, aspirin, statin, coreg COPD -Home meds. Chronic respiratory failure - continue supplemental O2. CKD4 - monitor renal function. Goals of care - Patient wishes to be home with hospice. POLTS form filled. ( He elects DNR/DNI, comfort care, no return to hospital, no Abtx and no IZABELLA/IV - focus on comfort and QOL/keep him at home.) Case management arranging home hospice set up. Subjective Patient seen and evaluated at bedside this morning. No acute events overnight. Comfortable in bed, anxious to get home with hospice care. At rest patient denies CP, SOB, abdominal pain, nausea, vomiting, lightheadedness, dizziness, and diarrhea. Review of Systems Review of Systems: reviewed, per HPI Physical Exam Physical Exam: Constitutional: ill-appearing, no acute distress HEENT: NCAT, no conjunctival injection CV: extremities well-perfused, no LE edema Resp: no increased work of breathing MSK: no gross deformities appreciated Skin: warm, dry, no rash appreciated Neuro: alert, oriented, no focal neurologic deficit appreciated Results & Data Results & Data Vital Signs (Past 12 Hours) Vital Signs Temp Pulse Pulse Resp BP Pulse Ox O2 Del Method 08/08/23 11:11 36.9 C 66 19 102/47 L 94 Nasal Cannula 08/08/23 10:48 72 08/08/23 08:00 Nasal Cannula 08/08/23 07:07 36.9 C 74 19 120/75 92 Nasal Cannula 08/08/23 03:00 36.5 C 69 19 128/75 97 Nasal Cannula O2 Flow Rate 08/08/23 11:11 08/08/23 10:48 08/08/23 08:00 6 08/08/23 07:07 08/08/23 03:00 Resident Activity Tracking Resident Involvement: Resident Care Provided Care Provided: Adult Hospital Medicine
[2023-08-09] MEDS: ALPRAZolam 0.5 MG TABLET PO PRN (09:01)
--- NOTE | 2023-08-09 12:13 | Discharge Summary ---
Date of Service August 09, 2023 Admission HPI Per Admitting Provider The patient is an 83-year-old male with a past medical history including AAA, asymptomatic carotid artery stenosis, diabetic nephropathy, panic disorder without agoraphobia, pulmonary nodules, diabetes mellitus type 2 with hypoglycemia, complete heart block status post pacemaker, mixed restrictive and obstructive lung disease, vitamin D deficiency and CKD stage IV. He was most recently admitted from 07/20-07/23/2023 to [facility] due to CHF exacerbation. He does chronically wear 3 L oxygen, and at that admission was given instructions to increase up to 6 L with physical activity. He had been doing well for about a week post admission, and then gradually start having worsening symptoms again. 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 He and his try to watch his salt intake very well, however, she reports that when she does stay with a especially low-salt diet, is glucose seems to drop also. He denies any recent travels or sick exposures. Admission Exam Per Admitting Provider The patient is awake, alert and oriented 3, well developed and well nourished, normocephalic and atraumatic, lying in bed and in no acute distress. HEENT--PERRL, EOMI, mucous membranes and oropharynx dry. Neck--supple. No JVD. No bruits. Thyroid normal, trachea midline, no adenopathy. Heart--normal S1 and S2. No murmurs, rubs or gallops. Lungs-- overall diminished throughout. No respiratory distress, no accessory muscle use. Abdomen--normal bowel sounds and soft. Nontender. Nondistended. Mildly obese Extremities--No edema. Dermatologic--scabbed abrasion left alfonso Neurologic--cranial nerves II through XII grossly intact. Rheumatologic--normal range of motion. Psychiatric--normal affect. Principal Diagnosis HFrEF, COPD, CDK-IV Discharge Exam Constitutional: ill-appearing, no acute distress HEENT: NCAT, no conjunctival injection CV: extremities well-perfused, no LE edema Resp: no increased work of breathing MSK: no gross deformities appreciated Skin: warm, dry, no rash appreciated Neuro: alert, oriented, no focal neurologic deficit appreciated Discharge Data Allergies Allergy/AdvReac Type Severity Reaction Status Date / Time No Known Allergies Allergy Verified 08/05/23 03:12 Consultations 08/05/23 06:11 ED Decision to Admit Stat 08/05/23 06:16 Consult Cardiology Routine Consult Pulmonology Routine 08/05/23 12:07 Consult Palliative Care Routine Hospital Course (1) Systolic heart failure: (2) CAD (coronary artery disease): (3) Afib: (4) Chronic respiratory failure with hypoxia: Plan The patient is an 83-year-old male with a past medical history including AAA, asymptomatic carotid artery stenosis, diabetic nephropathy, panic disorder without agoraphobia, pulmonary nodules, diabetes mellitus type 2 with hypoglycemia, complete heart block status post pacemaker, mixed restrictive and obstructive lung disease, vitamin D deficiency and CKD stage IV admitted due to acute CHF exacerbation Family and palliative discussion done today. POLST form completed. ( He elects DNR/DNI, comfort care, no return to hospital, no Abtx and no IZABELLA/IV - focus on comfort and QOL/keep him at home.) Hospice setting up house today. DC to home with hospice Acute HFrEF exacerbation chronically elevated troponin cardiomyopathy Acute on chronic respiratory failure with hypoxia Chest pain Baseline 3 L nasal cannula oxygen at rest, and increases up to 6 L oxygen as needed for activity BMP 4663 Troponin elevation and chest pain secondary to demand ischemia in heart failure Most recent echo on 07/21/2023: Ejection fraction 25-30%, severe global hypokinesis on the left ventricle. The right ventricle systolic function is severely reduced. Weight: no weight gained U/O: 0.70 Weight: 84.6 kg today Continue apixaban 2.5 mg p.o, aspirin 81 mg every other day, carvedilol 12.5 mg p.o. twice daily Nitropaste 1 inch to anterior chest wall every 6 hours Consult cardiology, appreciate recommendations : Imdur increase to BID today Consult Palliative Care, appreciate recommendations Continue Bumex 1 mg IV twice daily PT/ OT consulted Left pleural effusion - CXR 08/04-Left larger than right pleural effusions with dependent consolidation. - seem to had been increased compared from the prev on 07/20 - CXR repeat today: no change from yesterday - IV Bumex mg BID CAD/hypertension - Continue aspirin, Carvedilol COPD exacerbation/mixed restrictive and obstructive lung disease/question of pulmonary hypertension- Continue Trelegy Ellipta 1 elation daily, and albuterol HFA 2 puffs 4 times daily as needed Paroxysmal atrial flutter-fibrillation - Currently rate controlled - Continue home Mexiletine and Carvedilol - Continue home eliquis Diabetes mellitus- Continue glargine 12 units subcu in the evening Hold regular insulin 12 units subcu 3 times daily with meals Placed on Accu-Cheks with NovoLog SSI CKD stage IV- Creatinine 2.07 today - Follows Nephrology - Dr. Westbrook - Baseline Creatinine ~2.2 - CMP am DVT prophylaxis: Eliquis Diet: Heart Healthy, Carb consistent Code: Full code Total Time Total Time Spent Total Time Spent (In Minutes): see attending documentation Discharge Plan Discharge Items Patient Disposition: Hospice - Home Reason For Visit: ACUTE ON CHRONIC RESP FAIL W/ HYPOXIA, HFrEF EX Discharge Diagnosis: Acute Activity: Per Instructions section Non-emergency contact: Primary Care Provider Call non-emergency contact if: you have any medication questions Follow-up/Referrals: Gene Calvo MD [Primary Care Provider] - Diet: Regular Addtl Attending Provider Instructions: You were admitted to the hospital for increased symptoms from your multiple medical conditions. While you were here you decided that you no longer want to return to the hosptial and therefore arrangements were made for you to go home on hospice and allow natural when that time comes. A discharge summary will be sent to your primary care physician to ensure continuity of care. Please bring this discharge summary with you to your next office appointment so that your provider can review it at that time. Follow-up appointments: No follow up is necessary. Medications: Your medications will be managed by hospice. Please reach out to them with any questions. Thank you for allowing us to participate in your care. Pending Studies at Discharge: No Stand-Alone Forms: [facility] Medications and DC Order Prescriptions: Continued Trelegy Ellipta 200-62.5-25 mcg blister with device 1 inh inhalation DAILY Qty: 3 3RF alprazolam 0.5 mg tablet 0.5 mg PO BID PRN (Reason: anxiety) Qty: 180 1RF Rx Instructions: Ongoing therapy, Dr. Calvo AMANDA# [id number] ([facility] pen needle, diabetic [BD Ultra-Fine [place] Pen Needle] 32 gauge x 5/32" needle See Rx Instructions .Route Qty: 100 0RF Rx Instructions: use 4 per day with insulin injections levothyroxine 50 mcg tablet 50 mcg PO DAILY Qty: 90 3RF bumetanide 1 mg tablet 2 mg PO QAM Qty: 180 3RF albuterol sulfate [Ventolin HFA] 90 mcg/actuation HFA aerosol inhaler 2 puff inhalation QID PRN (Reason: shortness of breath or wheezing) Qty: 54 3RF nitroglycerin [Nitrostat] 0.4 mg tablet, sublingual 0.4 mg Sublingual UD PRN (Reason: chest pain) Qty: 30 4RF Rx Instructions: NEEDED FOR CHEST PAIN : ONE TABLET UNDER THE TONGUE EVERY 5 MINUTES UP TO 3 DOSES. rosuvastatin 5 mg tablet 5 mg PO DAILY Qty: 90 3RF (DME) FreeStyle Maritza 3 Sensor Device See Rx Instructions .Route Qty: 2 11RF Rx Instructions: change sensor every 14 days (DME) FreeStyle Maritza 3 [place] Misc See Rx Instructions .Route Qty: 1 0RF Rx Instructions: for use with Maritza 3 sensor Eliquis 2.5 mg tablet 2.5 mg PO BID Novolin R Regular U100 Insulin 100 unit/mL solution 12 unit subcut TIDM Rx Instructions: plus sliding scale Breakfast 12-Lunch12 Dinner 8 (DME) Portable Oxygen E0431 Misc See Rx Instructions .MEDSUPPLY Qty: 1 0RF Rx Instructions: Oxygen 4 liters continuous with portable concentrator. CLARISSA 99 (DME) FreeStyle Maritza 14 Day Sensor Kit See Rx Instructions .Route Rx Instructions: change every 14 days (DME) FreeStyle Maritza 14 Day Sensor Kit See Rx Instructions .ROUTE .MEDSUPPLY Qty: 1 0RF Rx Instructions: change sensor every 2 weeks carvedilol 12.5 mg tablet 12.5 mg PO BID Qty: 180 3RF Rx Instructions: must administer with a meal/food insulin glargine [Lantus Solostar U-100 Insulin] 100 unit/mL (3 mL) insulin pen 12 unit subcut QPM mexiletine 150 mg capsule 150 mg PO Q12H aspirin 81 mg tablet,delayed release (DR/EC) 81 mg PO Q OTHER DAY Discharge Orders: Discharge Order (Routine); Ordered 08/09/23 Ordered By: Jamie Schaffer Admission Data Admit Date/Time: 08/05/23 05:36 Attending Provider: Maria T Cassidy Admit Provider: Keith Enamorado Primary Care Provider: Gene Calvo Other Providers: Keith Enamorado; Cedrick Dubois; Sumi Bailey; Liliana Katz Other Interventions: Discharge Summary Assessment (RN) Last Done: 08/09/23 12:47 Supervising Physician Co-Signing Physician Notes Attending Physician Supervision Note: I independently interviewed and examined the patient and verified the lamar history and physical, reviewed labs and image studies and agree with findings and care plan noted above. In bed with at bedside. Breathing with no worsening. Acute on chronic HFrEF/Bilateral pleural effusion - Diuresed with 2 L neg fluid balance on discharge. Creatinine level stayed stable. O2 need stable. -continue home dose diuretics -continue coreg PAF -coreg, mexiletine, apixaban Trop elevation from demand ischemia -evaluated by cardio - not a candidate for [facility]. -nitro, aspirin, statin, coreg COPD -Home meds. Chronic respiratory failure - continue supplemental O2. CKD4 - stable renal function. Goals of care - Patient, and his kids met with palliative care - Patient wishes to be home with hospice. POLTS form filled. ( He elects DNR/DNI, comfort care, no return to hospital, no Abtx and no IZABELLA/IV - focus on comfort and QOL/keep him at home.) Case management arranged home hospice and he was discharged home. Resident Activity Tracking Resident Involvement: Resident Care Provided Care Provided: Adult Hospital Medicine
--- NOTE | 2023-08-09 18:42 | Electrocardiogram Report ---
Test Reason : Blood Pressure : / mmHG Vent. Rate : 089 BPM Atrial Rate : 089 BPM P-R Int : 150 ms QRS Dur : 174 ms QT Int : 444 ms P-R-T Axes : 084 -86 103 degrees QTc Int : 540 ms Normal sinus rhythm Left axis deviation Atrial sensing, ventricular pacing Abnormal ECG When compared with ECG of 21-JUL-2023 06:26, No significant change Confirmed by Ford Lopez ([id number]) on 08/09/2023 6:42:41 PM Referred By: REFERRED SELF Confirmed By:Ford Lopez
== END 2023-08-09 15:37 | disposition hospice, home (50) | DRG 291 ==
LOC: ED 02:48 → EDINP 05:36 → SUATTDRO 05:36 → 2S 14:32